=== PATIENT | male | born 1965 | race Caucasian/White ===

== ENCOUNTER 2016-04-20 12:02 | Observation (INO) | payer BC ==
[2016-04-20] MEDS ORDERED: NALOXONE 0.4 MG/ML 1 ML VIAL IV PRN (15:11)
--- NOTE | 2016-04-20 15:11 | ED ---
General Adult HPI - General Chief complaint: Recheck/Abnormal Lab/Rx Stated complaint: Withdraw Time Seen by Provider: 04/20/16 14:10 Source: patient, family, RN notes reviewed Mode of arrival: wheelchair Limitations: no limitations - History of Present Illness Initial comments: Patient is a pleasant 50-year-old male presenting to the emergency department with concerns for medication withdrawal. Patient has been on high-dose OxyContin for 16 years. There has been recent insurance change and refusal of refilling the medication. There was a dispute with the office and patient longer has a primary care physician. Patient is now out of his OxyContin and concern regarding withdrawal. Patient has had increase in pain today. Patient has chronic diffuse pain from multiple sclerosis. - Related Data Home Medications Medication Instructions Recorded Confirmed Ibuprofen [Motrin] 600 mg PO QID 08/04/15 04/20/16 Sertraline [Zoloft] 200 mg PO DAILY 08/04/15 04/20/16 oxyCODONE HCL [OxyCONTIN] 240 mg PO BID 08/04/15 04/20/16 Diazepam [Valium] 5 mg PO QID 04/20/16 04/20/16 Hydrocodone/Acetaminophen [[place] 1 tab PO BID PRN 04/20/16 04/20/16 10-325] Testosterone [Androgel 1.62% Gel 2 pump TOPICAL Q48H 04/20/16 04/20/16 Pump] oxyCODONE HCL [OxyCONTIN] 40 mg PO QID PRN 04/20/16 04/20/16 Allergies Allergy/AdvReac Type Severity Reaction Status Date / Time Penicillins AdvReac Severe Swelling Verified 04/20/16 14:09 prochlorperazine AdvReac Severe Hallucinati Verified 04/20/16 14:09 [From Compazine] ons prochlorperazine edisylate AdvReac Severe Hallucinati Verified 04/20/16 14:09 [From Compazine] ons prochlorperazine maleate AdvReac Severe Hallucinati Verified 04/20/16 14:09 [From Compazine] ons bupropion HCl AdvReac Intermediate Nausea & Verified 04/20/16 14:09 [From Wellbutrin] Vomiting gabapentin [From Neurontin] AdvReac Intermediate Nausea & Verified 04/20/16 14: 09 Vomiting amantadine AdvReac Unknown Nausea & Verified 04/20/16 14:09 Vomiting Review of Systems ROS Statement: Those systems with pertinent positive or pertinent negative responses have been documented in the HPI. ROS Other: All systems not noted in ROS Statement are negative. Constitutional: Denies: fever Eyes: Denies: eye pain ENT: Denies: ear pain Respiratory: Denies: cough Cardiovascular: Denies: palpitations Endocrine: Reports: fatigue Gastrointestinal: Denies: abdominal pain Genitourinary: Denies: dysuria Musculoskeletal: Reports: back pain Skin: Denies: rash Neurological: Reports: weakness Past Medical History Past Medical History: GERD/Reflux, Musculoskeletal Disorder, Neurologic Disorder , Osteoarthritis (OA) Additional Past Medical History / Comment(s): MS, active lesions in brain History of Any Multi-Drug Resistant Organisms: None Reported Past Surgical History: Back Surgery Additional Past Surgical History / Comment(s): c spine Past Anesthesia/Blood Transfusion Reactions: No Reported Reaction Past Psychological History: Anxiety, Depression Additional Psychological History / Comment(s): , lives in the family home with his . 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 No experience. No tobacco or alcohol use. No animal exposures. Smoking Status: Former smoker Past Alcohol Use History: None Reported Past Drug Use History: None Reported - Past Family History Mother Family Medical History: COPD, Hypertension General Exam Limitations: no limitations General appearance: alert, in no apparent distress Head exam: Present: atraumatic Eye exam: Present: normal appearance Respiratory exam: Present: normal lung sounds bilaterally Cardiovascular Exam: Present: regular rate, normal rhythm GI/Abdominal exam: Present: soft. Absent: tenderness Extremities exam: Present: normal inspection Neurological exam: Present: alert Psychiatric exam: Present: normal affect, normal mood Skin exam: Absent: rash Course Vital Signs 04/20/16 12:36 Temperature 98.3 F Pulse Rate 70 Respiratory 20 Rate Blood Pressure 164/85 O2 Sat by Pulse 95 Oximetry Disposition Clinical Impression: Intractable pain, Exacerbation of multiple sclerosis Disposition: ADMITTED IP TO THIS HOSP
[2016-04-20] MEDS ORDERED: HYDROcodone/APAP 10-325MG 1 EACH TAB PO PRN (15:13)
[2016-04-20 16:14] LABS: ALT 67 U/L (21-72); AST 59 U/L (17-59); Alkaline Phosphatase 145 U/L (38-126); Anion Gap 14 mmol/L; Blood Urea Nitrogen 13 mg/dL (9-20); Calcium 9.3 mg/dL (8.4-10.2); Carbon Dioxide 23 mmol/L (22-30); Chloride 101 mmol/L (98-107); Glucose 264 mg/dL (74-99); Non-African American GFR(MDRD) >60 (>60 ml/min/1.73 sqM); Potassium 4.4 mmol/L (3.5-5.1); Sodium 138 mmol/L (137-145); Total Bilirubin 0.7 mg/dL (0.2-1.3); Total Protein 8.3 g/dL (6.3-8.2)
[2016-04-20] MEDS: DIAZEPAM 5 MG TAB PO SCH ×2 (17:39→22:32)
[2016-04-20 17:43] LABS: Basophils % (A) 1 %; CH 28.8; CHCM 32.2; Eosinophils # (A) 0.1 k/uL (0-0.7); Eosinophils % (A) 1 %; HCT 40.3 % (39.0-53.0); HDW 2.64; Luc % (Auto) 2; Lymphocytes # (A) 1.5 k/uL (1.0-4.8); Lymphocytes % (A) 26 %; MCH 28.9 pg (25.0-35.0); MCHC 32.2 g/dL (31.0-37.0); MCV 89.8 fL (80.0-100.0); Mean Platelet Volume 6.9; Monocytes # (A) 0.4 k/uL (0-1.0); Monocytes % (A) 6 %; Neutrophils # (A) 3.7 k/uL (1.3-7.7); Neutrophils % (A) 64 %; RBC 4.49 m/uL (4.30-5.90); RDW 14.2 % (11.5-15.5); WBC 5.7 k/uL (3.8-10.6); WBC (Perox) 6.35
--- NOTE | 2016-04-20 18:26 | P.CNNES ---
History of Present Illness Consult date: 04/19/16 Reason for Consult: Patient with MS exacerbation and chronic pain. History of Present Illness: This patient is a 50-year-old right-handed white male who has a long-standing history of multiple sclerosis. Apparently recently the patient was discharged from his primary care physician due to some type of the dispute. He states he has a history of chronic pain syndrome. This is secondary to his long history of MS as well as other musculoskeletal problems. He has been using high-dose OxyContin for over 16 years. He apparently ran out of his OxyContin due to an insurance problem. He was concerned about withdrawal as his pain symptoms were quite severe and worsening to increase. He was brought into the emergency room where he was admitted for possible MS exacerbation as well as possible withdrawal syndrome. Patient has been treated for underlying depression as well. He is and lives at home with his . He has been medically disabled due to his MS. the patient apparently was following with his regular medical doctor locally Dr. Anna Brito. Apparently he was discharged from their practice today and he is no longer able to obtain his pain medication. This was a cause for concern which is why the decided to bring him to the emergency room as she was concerned about withdrawal from the OxyContin. Patient has been admitted to the hospital and apparently was given 40 mg of OxyContin. He is on very high-dose OxyContin for the past 16 years. For his multiple sclerosis he has been followed by specialists at the [facility]. He has tried various medications for treatment of the MS all of which have been unsuccessful. Apparently he has just recently been started on a new injectable form of treatment for his MS once a month. The patient has chronic pain secondary to his MS. Apparently the change in his prescription coverage through his insurance company has caused most of these problems in terms of his pain management at this time. The patient is now been admitted for further evaluation. We have recommended a consultation with pain management as soon as possible for further adjustment of his pain medications until he establishes with a new primary care physician. His overall prognosis at this time remains very guarded. He is now been admitted and neurology has been consult for further evaluation and recommendations. Review of Systems Constitutional: Denies chills, Denies fever Eyes: denies blurred vision, denies pain Ears, nose, mouth and throat: Denies headache, Denies sore throat Cardiovascular: Denies chest pain, Denies shortness of breath Respiratory: Denies cough Gastrointestinal: Denies abdominal pain, Denies diarrhea, Denies nausea, Denies vomiting Musculoskeletal: Reports muscle cramps, Reports shooting arm pain, Reports shooting leg pain, Denies myalgias Integumentary: Denies pruritus, Denies rash Neurological: Reports confusion, Reports headaches, Reports motor disturbance, Denies numbness, Denies weakness Psychiatric: Denies anxiety, Denies depression Endocrine: Denies fatigue, Denies weight change Past Medical History Past Medical History: GERD/Reflux, Musculoskeletal Disorder, Neurologic Disorder , Osteoarthritis (OA) Additional Past Medical History / Comment(s): MS, active lesions in brain History of Any Multi-Drug Resistant Organisms: None Reported Past Surgical History: Back Surgery Additional Past Surgical History / Comment(s): c spine Past Anesthesia/Blood Transfusion Reactions: No Reported Reaction Past Psychological History: Anxiety, Depression Additional Psychological History / Comment(s): , lives in the family home with his . 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 No experience. No tobacco or alcohol use. No animal exposures. Smoking Status: Former smoker Past Alcohol Use History: None Reported Past Drug Use History: None Reported - Past Family History Mother Family Medical History: COPD, Hypertension Medications and Allergies Home Medications Medication Instructions Recorded Confirmed Type Ibuprofen [Motrin] 600 mg PO QID 08/04/15 04/20/16 History Sertraline [Zoloft] 200 mg PO DAILY 08/04/15 04/20/16 History oxyCODONE HCL [OxyCONTIN] 240 mg PO BID 08/04/15 04/20/16 History Diazepam [Valium] 5 mg PO QID 04/20/16 04/20/16 History Hydrocodone/Acetaminophen [[place] 1 tab PO BID PRN 04/20/16 04/20/16 History 10-325] Testosterone [Androgel 1.62% Gel 2 pump TOPICAL Q48H 04/20/16 04/20/16 History Pump] oxyCODONE HCL [OxyCONTIN] 40 mg PO QID PRN 04/20/16 04/20/16 History Allergies Allergy/AdvReac Type Severity Reaction Status Date / Time Penicillins AdvReac Severe Swelling Verified 04/20/16 14:09 prochlorperazine AdvReac Severe Hallucinati Verified 04/20/16 14:09 [From Compazine] ons prochlorperazine edisylate AdvReac Severe Hallucinati Verified 04/20/16 14:09 [From Compazine] ons prochlorperazine maleate AdvReac Severe Hallucinati Verified 04/20/16 14:09 [From Compazine] ons bupropion HCl AdvReac Intermediate Nausea & Verified 04/20/16 14:09 [From Wellbutrin] Vomiting gabapentin [From Neurontin] AdvReac Intermediate Nausea & Verified 04/20/16 14: 09 Vomiting amantadine AdvReac Unknown Nausea & Verified 04/20/16 14:09 Vomiting Physical Examination - Vital Signs Vital Signs: Vital Signs Temp Pulse Resp BP Pulse Ox 04/20/16 15:51 97.6 F 69 18 128/80 95 - Constitutional General appearance: average body habitus, cooperative - EENT EENT: mucous membranes moist - Respiratory Respiratory: lungs clear, normal breath sounds - Cardiovascular Cardiovascular: regular rate, normal S1, normal S2 Extremities: no peripheral edema bilaterally - Gastrointestinal Gastrointestinal: normoactive bowel sounds - Integumentary Integumentary: normal - Neurologic Cranial nerve examination: PERRL, EOMI, VFF, V1/V2/V3 grossly intact, face symmetric, tongue midline, intact gag reflex, intact corneal reflex, normal palatal elevation Speech examination: intact Sensorimotor examination: intact Detailed motor examination: grossly full strength in all extremities Detailed sensory examination: intact Reflex and gait examination: intact Reflexes: 2+: ankle, bicep, knee, tricep - Musculoskeletal Musculoskeletal: pain in joint - Psychiatric Psychiatric: mood/affect appropriate, cooperative Results - Laboratory Findings CBC and BMP: 04/20/16 17:30 04/20/16 15:30 Abnormal Lab Findings: Abnormal Labs 04/20/16 15:30 Creatinine 0.63 L Glucose 264 H Alkaline Phosphatase 145 H Total Protein 8.3 H Assessment and Plan (1) Chronic pain syndrome Status: Acute Code(s): G89.4 - CHRONIC PAIN SYNDROME (2) Multiple sclerosis Status: Acute Code(s): G35 - MULTIPLE SCLEROSIS (3) Intractable pain Status: Acute Code(s): R52 - PAIN, UNSPECIFIED (4) Lumbar compression fracture Status: Acute Code(s): S32.000A - WEDGE COMPRESSION FRACTURE OF UNSP LUMBAR VERTEBRA, INIT (5) Lumbar discitis Status: Acute Code(s): M46.46 - DISCITIS, UNSPECIFIED, LUMBAR REGION (6) Muscle spasms of both lower extremities Status: Acute Code(s): M62.838 - OTHER MUSCLE SPASM Plan: This patient is a 50-year-old male with multiple complex medical issues including history of advanced multiple sclerosis and chronic pain syndrome. He had been on treatment for his chronic pain with high doses of OxyContin. Apparently he was discharged from his primary care physician who was writing the OxyContin medications for him. Apparently there was a change in his insurance and this has caused some of the problems. The was very concerned as he has no OxyContin medications left and for this reason was worried about withdrawal symptoms. He was brought to the emergency room where he was subtotally admitted to the hospital. A stat consult was put in for pain management to evaluate the patient's chronic pain symptoms. Patient has a history of advanced multiple sclerosis. He is followed by several specialists at the [facility] neurology clinic. Apparently he has been started on a once a month injection for treatment of his MS. He has tried multiple medications over the years on lobe which have not been successful. His current symptoms are more related to chronic pain management. His MS seems to be stable at this time. He will be following up with his regular neurologist soon after discharge. We will await further recommendations from pain management in regards to his OxyContin dosage and how to manage him. The is aware she will need to find a pain specialist for further management of his chronic pain symptoms. His overall prognosis at this time remains very guarded. Time with Patient: Greater than 30
[2016-04-20] MEDS ORDERED: HYDROmorphone 1 MG/ML 1 ML SYRINGE IVP PRN (18:44)
[2016-04-20] MEDS: SODIUM CHLORIDE 0.9% 1,000 ML IV SCH (18:48)
[2016-04-20 19:44] LABS: Hemoglobin A1C 10.5 % (4.2-6.1)
[2016-04-20] MEDS: FAMOTIDINE 20 MG TAB PO SCH (20:55)
[2016-04-20] MEDS: HYDROmorphone 2 MG/ML 1 ML SYRINGE IVP PRN (23:51)
[2016-04-21] MEDS: HYDROmorphone 2 MG/ML 1 ML SYRINGE IVP PRN ×7 (03:52→21:37)
[2016-04-21] MEDS: ONDANSETRON 4 MG/2 ML VIAL IVP PRN (06:47)
--- NOTE | 2016-04-21 07:10 | P.CONS ---
History of Present Illness - Chief Complaint Medical debility - History of Present Illness Admitted April 20 with exacerbation of back pain and MS exacerbation. Seen by Dr. Shayne Christiansen for known MS. I have added PT and OT at this time. Patient and report has been treated for chronic back pain by Dr. Brito. He's recently discontinued and now suffering withdrawal symptoms. You are treating this. Previous functional sick: As elicited from patient and corroborated by . 50 -year-old right-handed white male who is lives and one for home with . Doesn't smoke or drink and never did. Retired/disability. does the cooking, laundry, driving. Patient independent with sitdown shower and gait with 4 wheeled walker. Family history father with cardiac disease. Review of Systems Review of systems: ENT: Denies sneezes or discharge. Eyes: Denies discharge or photophobia. Cardiac: Denies chest pain or palpitation. Pulmonary: Denies cough or shortness of breath. Gastrointestinal: Denies nausea, emesis, constipation, diarrhea. Genitourinary: Denies discharge or frequency. Musculoskeletal: Chronic back pain with associated pain in legs. Neurologic: At least mild generalized weakness that is worse in left leg due to MS. Endocrine: Denies shakes or sweats. Oncology: Denies cancers. Dermatologic: Denies rash, itching, pruritus. ALLERGY/immunology: Denies sneezes, rashes. Past Medical History Past Medical History: GERD/Reflux, Musculoskeletal Disorder, Neurologic Disorder , Osteoarthritis (OA) Additional Past Medical History / Comment(s): MS, active lesions in brain History of Any Multi-Drug Resistant Organisms: None Reported Past Surgical History: Back Surgery Additional Past Surgical History / Comment(s): c spine Past Anesthesia/Blood Transfusion Reactions: No Reported Reaction Past Psychological History: Anxiety, Depression Additional Psychological History / Comment(s): , lives in the family home with his . 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 No experience. No tobacco or alcohol use. No animal exposures. Smoking Status: Never smoker Past Alcohol Use History: None Reported Past Drug Use History: None Reported - Past Family History Mother Family Medical History: COPD, Hypertension Medications and Allergies Home Medications Medication Instructions Recorded Confirmed Type Ibuprofen [Motrin] 600 mg PO QID 08/04/15 04/20/16 History Sertraline [Zoloft] 200 mg PO DAILY 08/04/15 04/20/16 History oxyCODONE HCL [OxyCONTIN] 240 mg PO BID 08/04/15 04/20/16 History Diazepam [Valium] 5 mg PO QID 04/20/16 04/20/16 History Hydrocodone/Acetaminophen [[place] 1 tab PO BID PRN 04/20/16 04/20/16 History 10-325] Testosterone [Androgel 1.62% Gel 2 pump TOPICAL Q48H 04/20/16 04/20/16 History Pump] oxyCODONE HCL [OxyCONTIN] 40 mg PO QID PRN 04/20/16 04/20/16 History Allergies Allergy/AdvReac Type Severity Reaction Status Date / Time Penicillins AdvReac Severe Swelling Verified 04/20/16 14:09 prochlorperazine AdvReac Severe Hallucinati Verified 04/20/16 14:09 [From Compazine] ons prochlorperazine edisylate AdvReac Severe Hallucinati Verified 04/20/16 14:09 [From Compazine] ons prochlorperazine maleate AdvReac Severe Hallucinati Verified 04/20/16 14:09 [From Compazine] ons bupropion HCl AdvReac Intermediate Nausea & Verified 04/20/16 14:09 [From Wellbutrin] Vomiting gabapentin [From Neurontin] AdvReac Intermediate Nausea & Verified 04/20/16 14: 09 Vomiting amantadine AdvReac Unknown Nausea & Verified 04/20/16 14:09 Vomiting Physical Exam Vitals: Vital Signs Temp Pulse Pulse Resp BP BP Pulse Ox 04/20/16 23:00 97.0 F L 55 L 18 141/81 95 04/20/16 17:06 96.8 F L 63 18 132/75 91 L 04/20/16 15:51 97.6 F 69 18 128/80 95 Intake and Output 04/20/16 04/21/16 04/21/16 22:59 06:59 14:59 Intake Total 300 240 Balance 300 240 Intake: Oral 300 240 Other: Voiding Method Toilet Urinal # Voids 2 Skin: Good color, texture, turgor. General: Overweight to obese and uncomfortable appearance. Head: Normocephalic, atraumatic. Eyes: Symmetric. Pupils equal round. Ears: Symmetric. Hearing within normal limits. Mouth: Clear. Neck: Supple. Carotid without bruit. Cardiac: Regular rate and rhythm. Lungs: Clear anteriorly and posteriorly. Abdomen: Soft active nontender overweight. Extremities: Normal tone. Neurological: Mental status: Alert, cooperative, pleasant. Cranial nerves: Symmetric facial tone and trapezius. Motor: Good active movement both arms but slow. Able elevate the right leg at best 3+ over 5. Left leg is at best 2+ over 5. Sensation: Intact throughout. DTRs: Absent throughout. Mobility: Sitting at edge of bed but unable to stand for me. Results CBC & Chem 7: 04/20/16 17:30 04/20/16 15:30 Labs: Abnormal Lab Results - Last 24 Hours (Table) 04/20/16 04/20/16 04/20/16 Range/Units 15:30 15:30 17:30 Plt Count 133 L (150-450) k/uL Creatinine 0.63 L (0.66-1.25) mg/dL Glucose 264 H (74-99) mg/dL Hemoglobin A1c 10.5 H (4.2-6.1) % Alkaline Phosphatase 145 H (38-126) U/L Total Protein 8.3 H (6.3-8.2) g/dL Assessment and Plan (1) Exacerbation of multiple sclerosis Status: Acute Plan: Impression: 1. Gait disturbance. 2. MS exacerbation. 3. Exacerbation chronic back pain. 4. Possible opiate withdrawal symptom. 5. Shelli arthritis. Comments and plan: At this time I'll prescribe physical neck facial therapy for the walking difficulty issues. Anticipate patient should do well. You are currently managing his opiate withdrawal syndrome.
--- NOTE | 2016-04-21 08:15 | HP ---
DATE OF ADMISSION: 04/20/2016 CHIEF COMPLAINT: A 50-year-old white male with acute multiple sclerosis exacerbation is in drug withdrawal. HISTORY OF PRESENT ILLNESS: 50-year-old white male admitted after his doctor stopped his OxyContin 240 mg b.i.d. which he has been on for the last 16 years. Will not refill his medicine. He ran out today. He came to the ER due to MS exacerbation and OxyContin withdrawal. He is having no chest or shortness of breath. His home medicines include: 1. Zoloft 200 daily. 2. OxyContin 240 b.i.d. 3. Valium 5 mg b.i.d. 4. [place] 10 b.i.d. 5. Testosterone ejection. 6. Motrin. ALLERGIES: PENICILLIN, COMPAZINE, AND WELLBUTRIN AND NEURONTIN, AMANTADINE. REVIEW OF SYSTEMS: Fourteen-point review of systems negative except for as mentioned in HPI. CARDIOVASCULAR: Negative. PULMONARY: Negative. ENDOCRINE: Obesity. GI: Soft. : Negative. MUSCULOSKELETAL: Negative. SKIN: Negative. NEUROLOGIC: Negative. PAST MEDICAL HISTORY: GERD, reflux, also ( ), neurologic disorder, osteoarthritis. Has a history of mass lesions on the brain, back surgery, anxiety, depression. Medically disabled. He grew up on a farm. No experience. No alcohol or illicit drugs. He is , lives with his family at home. PHYSICAL EXAMINATION: Temperature 98.3, pulse 70, respiratory rate 18 to 20, blood pressure 160/85, O2 sat 95. He appears alert and oriented x3, giving appropriate answers. Appears to be ( ) pain. MUSCULOSKELETAL: 3 out of 5 strength in his four extremities . EXTREMITIES: He does walk with a walker with limited fashion. He has left sided weakness. He can barely get out of the bed at this point. 3 out of 5 strength in 4 extremities. LUNGS: Clear. CARDIOVASCULAR: S1 and S2. SKIN: No rashes, excoriations, bruising. ASSESSMENT: 1. Multiple sclerosis exacerbation irretractable pain. 2. Hyperglycemia, rule out diabetes mellitus. 3. Will get pain referral from Dr. Hampton. 4. Neurology for multiple sclerosis exacerbation. 5. Rule him out for diabetes. 6. Thrombocytopenia, unclear etiology. His hemoglobin A1c is 10.5 so will have to be started on diabetic medications at this time.
[2016-04-21] MEDS: FAMOTIDINE 20 MG TAB PO SCH ×2 (08:49→20:10)
[2016-04-21] MEDS: DIAZEPAM 5 MG TAB PO SCH ×3 (08:52→21:39)
[2016-04-21] MEDS: SERTRALINE 100 MG TAB PO SCH (09:33)
--- NOTE | 2016-04-21 13:31 | P.PN ---
Subjective This patient is a 50-year-old right-handed white male who has a long-standing history of multiple sclerosis and was admitted for oxycodone withdrawal syndrome. Patient apparently was treated for chronic pain for years and had his oxycodone discontinued by his primary care physician. Apparently he was released from this practice and is now stuck in that he has no pain medications that he can continue on for long-term treatment of chronic pain syndrome. He is being followed in the neurology clinic at [facility] for treatment of his MS. He is receiving Zinbryta injections once a month for treatment of his MS. He has failed several other treatment medications over the years. He states that he was using oxycodone for pain management for over 16 years. He is now to be seen by the in-house pain management team from anesthesia for further assessment of his pain requirements and needs. He was seen by Dr. Nance today was prescribed PTOT for him. We will await further recommendations from the pain specialist in terms of adjustments of his medications. He is also needing to find a primary care physician for long-term pain management in the outpatient setting. His overall prognosis at this time remains very guarded. Objective - Vital Signs Vital signs: Vital Signs Temp 98.3 F 04/21/16 07:00 Pulse 77 04/21/16 11:20 Resp 20 04/21/16 11:20 BP 133/87 04/21/16 11:20 Pulse Ox 95 04/21/16 11:20 Intake & Output 04/20/16 04/21/16 04/21/16 18:59 06:59 18:59 Intake Total 540 200 Balance 540 200 Intake: Oral 540 200 Other: Voiding Method Toilet Toilet Urinal Urinal # Voids 2 - Exam Physical examination: PHYSICAL EXAMINATION: Patient is resting comfortably in bed. VITAL SIGNS: Blood pressure is [134/93]. Heart rate is [78]. Respiration is [20] . Temperature is [98.3]. HEENT: Head is atraumatic, neck is supple, there were no carotid bruits. CHEST: Lungs are clear to auscultation and percussion. CARDIAC: S1, S2 normal rate and rhythm. There is no murmur. ABDOMEN: Soft and nontender. Bowel sounds are present. EXTREMITIES: There is no pedal edema. Peripheral pulses are present. Neurological examination: Patient neurological examination is unchanged from yesterday. - Labs CBC & Chem 7: 04/20/16 17:30 04/20/16 15:30 Labs: Abnormal Lab Results - Last 24 Hours (Table) 04/20/16 04/20/16 04/20/16 Range/Units 15:30 15:30 17:30 Plt Count 133 L (150-450) k/uL Creatinine 0.63 L (0.66-1.25) mg/dL Glucose 264 H (74-99) mg/dL Hemoglobin A1c 10.5 H (4.2-6.1) % Alkaline Phosphatase 145 H (38-126) U/L Total Protein 8.3 H (6.3-8.2) g/dL Assessment and Plan (1) Chronic pain syndrome Status: Acute Code(s): G89.4 - CHRONIC PAIN SYNDROME (2) Multiple sclerosis Status: Acute Code(s): G35 - MULTIPLE SCLEROSIS (3) Intractable pain Status: Acute Code(s): R52 - PAIN, UNSPECIFIED (4) Lumbar compression fracture Status: Acute Code(s): S32.000A - WEDGE COMPRESSION FRACTURE OF UNSP LUMBAR VERTEBRA, INIT (5) Lumbar discitis Status: Acute Code(s): M46.46 - DISCITIS, UNSPECIFIED, LUMBAR REGION (6) Muscle spasms of both lower extremities Status: Acute Code(s): M62.838 - OTHER MUSCLE SPASM Plan: This patient is a 50-year-old male with multiple complex medical issues including history of advanced multiple sclerosis and chronic pain syndrome. He had been on treatment for his chronic pain with high doses of OxyContin. Apparently he was discharged from his primary care physician who was writing the OxyContin medications for him. Apparently there was a change in his insurance and this has caused some of the problems. The was very concerned as he has no OxyContin medications left and for this reason was worried about withdrawal symptoms. He was brought to the emergency room where he was subtotally admitted to the hospital. A stat consult was put in for pain management to evaluate the patient's chronic pain symptoms. Patient has a history of advanced multiple sclerosis. He is followed by several specialists at the [facility] neurology clinic. Apparently he has been started on a once a month injection for treatment of his MS. He has tried multiple medications over the years on lobe which have not been successful. His current symptoms are more related to chronic pain management. His MS seems to be stable at this time. He will be following up with his regular neurologist soon after discharge. Patient was seen today by Dr. Hampton. Apparently he did not make any changes with his pain medications. Since the patient is not showing any obvious signs of severe MS exacerbation it is more of a issue of his OxyContin withdrawal syndrome and pain management we have suggested the patient be considered for transfer to a tertiary center where his primary neurologist is located in the [place] area for further pain management and assessment. We discussed this today with the nursing staff will contact Dr. Khan and make arrangements for possible transfer to the [facility]. Apparently he has been placed on Dilaudid every 2-3 hours which is not really showing much help for him. As noted his main issue is pain management at this time. Nursing staff states that the pain specialists would not be available until Sunday. Rather than keeping the patient here over the weekend with no treatment we have recommended that he be considered for transfer to a tertiary center for further management.
[2016-04-21 14:28] VITALS: BMI 38.0
[2016-04-21] MEDS: SODIUM CHLORIDE 0.9% 1,000 ML IV SCH (15:41)
[2016-04-21] MEDS: metFORMIN 500 MG TAB PO SCH (18:31)
[2016-04-21 18:32] LABS: Glucose,Whole Blood 222 mg/dL (75-99)
[2016-04-21 21:36] LABS: Glucose,Whole Blood 213 mg/dL (75-99)
[2016-04-22] MEDS: HYDROmorphone 2 MG/ML 1 ML SYRINGE IVP PRN ×9 (00:18→22:38)
[2016-04-22] MEDS: ONDANSETRON 4 MG/2 ML VIAL IVP PRN (03:14)
[2016-04-22 06:56] LABS: Glucose,Whole Blood 279 mg/dL (75-99)
[2016-04-22] MEDS: DIAZEPAM 5 MG TAB PO SCH ×3 (08:27→22:38)
[2016-04-22] MEDS: FAMOTIDINE 20 MG TAB PO SCH ×2 (08:28→22:38)
[2016-04-22] MEDS: metFORMIN 500 MG TAB PO SCH ×2 (08:28→17:25)
[2016-04-22] MEDS: SERTRALINE 100 MG TAB PO SCH (08:28)
[2016-04-22 12:00] LABS: Glucose,Whole Blood 238 mg/dL (75-99)
--- NOTE | 2016-04-22 17:03 | P.CN ---
Psychiatric Consult - . Consult:: 04/22/16 16:53 IDENTIFYING DATA: This patient is a 50-year-old male who was admitted to the medical floor and we're asked to consult regarding symptoms of depression in the context of opiate withdrawal. HPI: Other records were reviewed including the original history and physical notes from neurology and from physical rehabilitation. The patient has a known diagnosis of multiple sclerosis with subsequent pain. He has been maintained on extraordinary high doses of opiates for he states 16 years. Because of changes with his insurance he states he was discontinued from his pain medication abruptly. Subsequently he has been experiencing severe symptoms of withdrawal including stomach cramping nausea diarrhea lack of appetite insomnia etc. He reports a long history of major depressive disorder. He has been more tearful lately he has been feeling tired. Because of the intensity of opiate withdrawal symptoms he has had some passive suicidal thoughts but states he would never harm himself. He has no active suicidal ideation intent or plan. The patient's and daughter were at bedside during the interview and neither of them feel her father/ is at risk for committing suicide. They do corroborate his history that he provides. There is no history of hypomanic or manic episodes there is no report of psychosis. His family feels that he is an anxious person he states he is somewhat will have some obsessive thinking at times and will be ritualistic. He states he has to brush his teeth for 20 minutes and he does take extended showers. PAST PSYCHIATRIC HISTORY: No prior inpatient psychiatric care no history of suicide attempts. He is currently on Zoloft 200 mg daily and Valium 5 mg up to 3 times daily. He has not tried any other psychotropics that he can recall, however he does have Wellbutrin listed as an ALLERGY. He is not working with an outpatient therapist or psychiatrist. PMH: MS, diabetes, chronic pain ALLERGIES: Penicillin, Compazine, Wellbutrin, Neurontin, Symmetrel MEDICATIONS: Refer to MAR CHEMICAL DEPENDENCY HISTORY: Ports no use of alcohol, marijuana or any illicit drugs. He's never been placed in residential treatment for chemical dependency reasons. FAMILY PSYCHIATRIC HISTORY: He states both of his children are known to have anxiety symptoms, no suicides in the family FAMILY CHEMICAL DEPENDENCY HISTORY: None reported SOCIAL HISTORY: The patient is a 50-year-old male. He has been for 29 years. He lives with his . He has a total of 3 children. 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 He has a high school education with some college credits. No service. MENTAL STATUS EXAM: The patient is an overweight male appearing his stated age. He is lying in bed. Eye contact is appropriate speech is soft spontaneous nonpressured. He is dressed in hospital gowns and covered with a blanket. Thought process is circumstantial at times he can be linear. He is pleasant and cooperative. He is reporting no acute suicidal ideation intent or plan no homicidal ideation. There is no report or evidence of auditory or visual hallucinations. He is endorsing no specific delusions. Insight and judgment grossly intact. He is alert and oriented to person place and date. There is no verbal or physical aggressiveness. STRENGTHS/WEAKNESSES: Drinks: Housing, income, support from family weaknesses: Major depressive disorder symptoms in the context of opiate withdrawal INTELLECTUAL FUNCTIONING: Average IMPRESSIONS: [] 1. Major depressive disorder recurrent moderate, anxiety unspecified, iatrogenic opiate dependence 2. Multiple medical comorbidities 3. Psychosocial dysfunction secondary to depressive symptoms in the context of acute opiate withdrawal PLAN: We reviewed the patient's presenting symptoms and medication options. He will be transitioned off of Zoloft and we will institute Cymbalta. We will start Cymbalta 30 mg daily and over the next few days the plan would be to titrate to 60 mg daily as the Zoloft is discontinued. We discussed potential benefits and side effects of Cymbalta and his questions were answered. Valium will be continued at its current dose but we encourage minimizing it when possible. There is no acute safety risk he is appropriate for outpatient mental health follow-up upon discharge from the hospital. Case was discussed with Dr. Khan his current attending. Education was provided to the patient regarding opiate withdrawal in terms of when to expect a peak effect and its duration. The patient's questions were answered as well as his 's and daughters. I will follow patient while medically admitted. I would recommend instituting a delayed release opiate at a reasonable dose that can be maintained for the next several days prior to meeting up with his next pain physician.
[2016-04-22 17:12] LABS: Glucose,Whole Blood 268 mg/dL (75-99)
[2016-04-22] MEDS: SODIUM CHLORIDE 0.9% 1,000 ML IV SCH (17:18)
[2016-04-22] MEDS ORDERED: TESTOSTERONE TOPICAL SCH (18:00)
[2016-04-22] MEDS ORDERED: PUMP TOPICAL SCH (18:00)
[2016-04-22 20:48] LABS: Glucose,Whole Blood 254 mg/dL (75-99)
[2016-04-23] MEDS: HYDROmorphone 2 MG/ML 1 ML SYRINGE IVP PRN ×5 (00:52→10:22)
[2016-04-23] MEDS: ONDANSETRON 4 MG/2 ML VIAL IVP PRN (03:44)
[2016-04-23 07:00] LABS: Glucose,Whole Blood 264 mg/dL (75-99)
[2016-04-23] MEDS: DIAZEPAM 5 MG TAB PO SCH ×3 (07:57→23:43)
[2016-04-23] MEDS: DULoxetine HCL 30 MG CAPSULE.DR PO SCH (07:58)
[2016-04-23] MEDS: SERTRALINE 100 MG TAB PO SCH (07:58)
[2016-04-23] MEDS: metFORMIN 500 MG TAB PO SCH ×2 (07:59→17:34)
[2016-04-23] MEDS: FAMOTIDINE 20 MG TAB PO SCH ×2 (07:59→21:54)
[2016-04-23 11:58] LABS: Glucose,Whole Blood 264 mg/dL (75-99)
[2016-04-23] MEDS: oxyCODONE-APAP 10-325MG 1 EACH TAB PO PRN ×3 (12:15→20:10)
[2016-04-23] MEDS: HYDROmorphone 1 MG/ML 1 ML SYRINGE IVP PRN ×3 (13:18→21:54)
--- NOTE | 2016-04-23 14:29 | P.PN ---
Progress Note - Text Interval history: The patient is found in his room he is lying awake in bed. He has his and son at bedside. He reports that his mood is still down because of physical symptoms related to withdrawal. He is endorsing no acute suicidal ideation. We discussed the change from Zoloft to Cymbalta again he has no questions regarding those medications. He has been placed on Percocet 10 mg when necessary. He is scheduled to follow with a neurologist upon discharge for continued pain management. The patient's endorsing some feelings of confusion but no auditory or visual hallucinations. Mental status exam: The patient's is an overweight male he is alert he recognizes me on approach. He spontaneously engages in conversation. He reports feeling miserable due to physical Seroquel of opiate withdrawal. He is reporting no acute suicidal or homicidal ideation intent or plan. There is no report or evidence of psychosis. There is no evidence of hypomanic or manic symptoms. Insight and judgment grossly intact. He remains oriented to person place and date. There is no verbal or physical aggressiveness. He finds family supportive. He spontaneously verbalizes future oriented thinking. Plan: We will continue our plan of cross tapering off of Zoloft and onto Cymbalta. There is no imminent safety risk the patient does not require inpatient psychiatric hospitalization. Consider Imodium if complaints of diarrhea continue, we may consider instituting clonidine 0.1 mg up to 3 times daily as needed for opiate withdrawal symptoms if his blood pressure can tolerate that. I would consider starting him on a sustained release opiate medication twice daily. I will continue to follow patient while medically admitted.
[2016-04-23] MEDS: SODIUM CHLORIDE 0.9% 1,000 ML IV SCH (16:01)
[2016-04-23 17:08] LABS: Glucose,Whole Blood 195 mg/dL (75-99)
--- NOTE | 2016-04-23 20:38 | PN ---
DATE OF SERVICE: 04/22/2016 SUBJECTIVE: This is a 50-year-old white male wound with multiple sclerosis, severe chronic pain control issue, acute drug withdrawal, diabetes who has been treated with metformin 1 gram b.i.d. He still remains elevated. His blood glucose levels in the mid 200s. Discussed with him and his family to stop wean him off Dilaudid, starting him off on some Percocet until he gets into Dr. Chang on Sunday for a pain clinic evaluation. MUSCULOSKELETAL: He has 3 out of 5 strength x4 extremities. CARDIOVASCULAR: S1, S2. LUNGS: Clear. Psychiatry saw the patient evaluated him, reviewed chart plan was his pain control with him and recommends same plan as mentioned above with Dr. Gray. Will follow. Will increase his metformin to 1 gram b.i.d. Wean Dilaudid, start Percocet until he sees Dr. Chang on Sunday after recently coming off OxyContin 240 mg b.i.d. which his primary care physician just stopped on him abruptly.
[2016-04-23 20:49] LABS: Glucose,Whole Blood 219 mg/dL (75-99)
[2016-04-24] MEDS: HYDROmorphone 1 MG/ML 1 ML SYRINGE IVP PRN ×3 (02:15→09:55)
[2016-04-24] MEDS: oxyCODONE-APAP 10-325MG 1 EACH TAB PO PRN ×2 (03:13→07:38)
[2016-04-24] MEDS: ONDANSETRON 4 MG/2 ML VIAL IVP PRN (04:36)
[2016-04-24 07:00] LABS: Glucose,Whole Blood 249 mg/dL (75-99)
[2016-04-24] MEDS: DIAZEPAM 5 MG TAB PO SCH (07:38)
[2016-04-24] MEDS: DULoxetine HCL 30 MG CAPSULE.DR PO SCH (07:39)
[2016-04-24] MEDS: FAMOTIDINE 20 MG TAB PO SCH (07:39)
[2016-04-24] MEDS: metFORMIN 500 MG TAB PO SCH (07:39)
[2016-04-24] MEDS: SERTRALINE 100 MG TAB PO SCH (07:39)
--- NOTE | 2016-04-24 07:40 | PN ---
SUBJECTIVE: 50-year-old white male, sugars are in the mid 200, ( ) Metformin 1000 b.i.d., possibly will add another agent on discharge. Patient will follow-up with pain clinic at Dr. Chang on Sunday. CARDIOVASCULAR: S1, S2. LUNGS: Clear. GI: Soft. HEMATOLOGIC: Negative Homans. 05/14 x4 extremities. ASSESSMENT: 1. Multiple sclerosis. 2. Diabetes mellitus. 3. Depression. 4. Chronic pain syndrome. The patient continued to ( ) next 24 to 48 hours for PT, OT and being discharged home to see Dr. Chang in pain clinic on Sunday.
[2016-04-24 07:53] VITALS: BP 165/89; PULSE 88; RESP 18; TEMP 97.1
--- NOTE | 2016-04-24 10:11 | P.PN ---
Progress Note - Text Interval history: The patient is found in his room he is in the process of being actively discharged. He is going to follow with a neurologist for pain management at 11 AM this morning. He is reporting no acute suicidal ideation intent or plan. There is no report of psychosis. Mental status exam: The patient is an overweight male he is dressed in hospital attire. Eye contact is appropriate speech is fluent spontaneous nonpressured. He can be verbose but is easily directed. No evidence of hypomanic or manic symptoms. No evidence of psychosis. He is endorsing no acute suicidal or homicidal ideation intent or plan. There is no verbal or physical aggressiveness. Insight and judgment grossly intact. Cognitively he is alert and oriented to person place and date. Plan: The patient is at no acute safety risk. He does not require inpatient psychiatric hospitalization. We will discontinue the Zoloft and he is to continue on Cymbalta 60 mg daily. He is encouraged to minimize any use of Valium. He is given the phone number for the other [facility] outpatient counseling office to arrange individual therapy and subsequent psychiatric follow-up.
[2016-04-24] MEDS ORDERED: DULoxetine HCL 30 MG CAPSULE.DR PO SCH (10:15)
--- NOTE | 2016-04-24 10:22 | P.DS ---
Providers Date of admission: 04/20/16 15:11 Expected date of discharge: 04/24/16 Attending physician: Bruce Khan Consults: 04/20/16 19:38 Consult Physician Stat Consulting Provider: Shashank Hampton Consult Reason/Comments: pain managment Do you want consulting provider notified?: Yes 04/21/16 12:32 Consult Physician Routine Consulting Provider: José Antonio Gray Consult Reason/Comments: pain medication addiction Do you want consulting provider notified?: Yes 04/23/16 08:00 Consult Anesthesia Urgent Consulting Provider: Anesthesia,Services Consult Reason/Comments: Pain Management for Opiod [facility] Primary care physician: Stated None Hospital Course: IDENTIFYING DATA: This patient is a 50-year-old male who was admitted to the medical floor and a psychiatric consult was requested regarding symptoms of depression in the context of opiate withdrawal. The patient has a known diagnosis of multiple sclerosis with subsequent pain. He has been maintained on extraordinary high doses of opiates for he states 16 years. Because of changes with his insurance he states he was discontinued from his pain medication abruptly. Subsequently he has been experiencing severe symptoms of withdrawal including stomach cramping nausea diarrhea lack of appetite insomnia etc. He reports a long history of major depressive disorder. He has been more tearful lately he has been feeling tired. Because of the intensity of opiate withdrawal symptoms he has had some passive suicidal thoughts but states he would never harm himself. He has no active suicidal ideation intent or plan. The patient's and daughter were at bedside during the interview and neither of them feel her father/ is at risk for committing suicide. They do corroborate his history that he provides. There is no history of hypomanic or manic episodes there is no report of psychosis. His family feels that he is an anxious person he states he is somewhat will have some obsessive thinking at times and will be ritualistic. He states he has to brush his teeth for 20 minutes and he does take extended showers. PAST PSYCHIATRIC HISTORY: No prior inpatient psychiatric care no history of suicide attempts. He is currently on Zoloft 200 mg daily and Valium 5 mg up to 3 times daily. He has not tried any other psychotropics that he can recall, however he does have Wellbutrin listed as an ALLERGY. He is not working with an outpatient therapist or psychiatrist. Dr. Gray from the mental health did see patient on consultation. They recommended maintaining the patient on Cymbalta 60 mg daily and stopping Zoloft. Additionally starting him on sustained release opiate medication twice a day. Patient was set up with neurology today on the day of discharge at [address] Chang with would be addressing patient's pain issues for pain management Additionally the patient was seen by Dr. Snyder patient has a long-standing history of multiple sclerosis. Patient reportedly sees a neurologically clinic at [facility] for treatment of the MS. Patient is receiving zinbryta injections once a month for treatment of MS patient has been encouraged to continue his relationship with the neurological clinic at [facility] for treatment of his MS Patient was seen by the health information provider was provided with diabetic education hemoglobin A1c was 10.5. Patient with follow-up with Dr. Khan in the outpatient setting for further management The day of discharge patient was felt to be appropriate to be discharged with the plan the patient will keep to 11 AM appointment today with Dr. Holder for pain management Impression discharge diagnosis Major depressive disorder recurrent moderate, anxiety unspecified, iatrogenic opiate dependence Type II diabetic insulin requiring uncontrolled hemoglobin A1c 10.5 Psychosocial dysfunction secondary to depressive symptoms in the context of acute opiate withdrawal Chronic pain syndrome Status: Acute Code(s): G89.4 - CHRONIC PAIN SYNDROME (2) Multiple sclerosis Status: Acute Code(s): G35 - MULTIPLE SCLEROSIS (3) Intractable pain Status: Acute Code(s): R52 - PAIN, UNSPECIFIED (4) Lumbar compression fracture Status: Acute Code(s): S32.000A - WEDGE COMPRESSION FRACTURE OF UNSP LUMBAR VERTEBRA, INIT (5) Lumbar discitis Status: Acute Code(s): M46.46 - DISCITIS, UNSPECIFIED, LUMBAR REGION (6) Muscle spasms of both lower extremities Status: Acute Code(s): M62.838 - OTHER MUSCLE SPASM Debilitated physical chronic with gait disturbance The above dictated assessment and findings were discussed with Dr. Khan Impression and the plan of care have been dictated as directed. Alma Red nurse practitioner acting as a scribe for Dr. Khan Plan - Discharge Summary New Discharge Prescriptions: DULoxetine HCL [Cymbalta] 60 mg PO DAILY #30 capsule. Discharge Medication List Ibuprofen [Motrin] 600 mg PO QID 08/04/15 [History] oxyCODONE HCL [OxyCONTIN] 240 mg PO BID 08/04/15 [History] Diazepam [Valium] 5 mg PO QID 04/20/16 [History] Hydrocodone/Acetaminophen [[place] 10-325] 1 tab PO BID PRN 04/20/16 [History] Testosterone [Androgel 1.62% Gel Pump] 2 pump TOPICAL Q48H 04/20/16 [History] oxyCODONE HCL [OxyCONTIN] 40 mg PO QID PRN 04/20/16 [History] DULoxetine HCL [Cymbalta] 60 mg PO DAILY #30 capsule. 04/24/16 [Rx] Follow up Appointment(s)/Referral(s): Bruce Khan MD [STAFF PHYSICIAN] - 05/02/16 2:30 pm Patient Instructions/Handouts: Multiple Sclerosis (DC), Type 2 Diabetes in Adults (DC) Activity/Diet/Wound Care/Special Instructions: Cardiac, diabetic diet. Keep scheduled appointment today at [address] Chang for pain management Discharge Disposition: HOME SELF-CARE
== END 2016-04-24 10:45 | disposition home or self-care (01) ==
LOC: EC 12:02 → 4MS4W 15:11
PROVIDERS: ADMIT Family Medicine; ATTEND Family Medicine
DX: G89.4 Chronic pain syndrome (principal); G35 Multiple sclerosis; F11.23 Opioid dependence with withdrawal; F33.1 Major depressive disorder, recurrent, moderate; F41.9 Anxiety disorder, unspecified; E11.65 Type 2 diabetes mellitus with hyperglycemia; D69.6 Thrombocytopenia, unspecified; M48.56XA Collapsed vertebra, not elsewhere classified, lumbar region, initial encounter for fracture; M46.46 Discitis, unspecified, lumbar region; M19.90 Unspecified osteoarthritis, unspecified site; M62.838 Other muscle spasm; E66.3 Overweight; Z68.38 Body mass index [BMI] 38.0-38.9, adult; Z87.891 Personal history of nicotine dependence; Z79.899 Other long term (current) drug therapy; Z79.1 Long term (current) use of non-steroidal anti-inflammatories (NSAID); Z88.0 Allergy status to penicillin; Z88.8 Allergy status to other drugs, medicaments and biological substances; Z73.6 Limitation of activities due to disability; Z79.891 Long term (current) use of opiate analgesic
CPT/HCPCS: 99284; 97116; 97530; 97162; 80053; 84443; 83036; 85025; G0378 ×5; J1170 ×7; J2405 ×4; 96374; 96375; 96376

== ENCOUNTER 2016-05-02 15:51 | Inpatient (IN) | payer BC, OTHER ==
[2016-05-02] MEDS ORDERED: SODIUM CHLORIDE 0.9% 1,000 ML IV STA (16:34)
[2016-05-02] MEDS ORDERED: methylPREDNISolone SOD SUCCI 125 MG/2 ML VIAL IV STA (16:34)
[2016-05-02] MEDS ORDERED: SODIUM CHLORIDE 0.9% 500 ML IV STA (16:34)
[2016-05-02] MEDS ORDERED: LORazepam 2 MG/ML SYRINGE IV STA (16:34)
--- NOTE | 2016-05-02 16:37 | ED ---
General Adult HPI - General Chief complaint: Psychiatric Symptoms Stated complaint: Back Pain/MS/Mental Health Time Seen by Provider: 05/02/16 16:23 Source: patient, family, RN notes reviewed Mode of arrival: wheelchair Limitations: no limitations - History of Present Illness Initial comments: 50-year-old male presents to the emergency department with a chief complaint of intractable pain. Patient was recently admitted a few weeks ago for intractable pain. Patient followed up with Dr. Khan and was sent to Dr. Mckenzie yeh for pain management. The patient has been treated with [facility] outpatient we however he continues to have intractable pain to the point that he is becoming suicidal and friends take his life because his pain is poorly managed. The patient also has started noticing weakness to his left upper extremity which is typical of an MS exacerbation for him. He went to Dr. Khan today for follow-up and was sent here to be admitted to the family for steroids in pain management. They state they do about follow-up with Dr. Chang next week to get a pelvic that should help with the patient's pain however he cannot get that's unlikely given he is unable to tolerate pain at home. The patient is tearful in the room and complains of just intractable back pain. Family states while he sent him here for admission. Patient denies any recent fever, chills, shortness of breath, chest pain, abdominal pain, nausea vomiting, numbness or tingling, dysuria or hematuria, constipation or diarrhea, headaches or visual changes, or any other current symptoms. - Related Data Home Medications Medication Instructions Recorded Confirmed Diazepam [Valium] 5 mg PO QID 04/20/16 05/02/16 Hydrocodone/Acetaminophen [[place] 1 tab PO BID PRN 04/20/16 05/02/16 10-325] Daclizumab [Zinbryta] 150 mg SQ Q30D 05/02/16 05/02/16 Ibuprofen [Motrin] 800 mg PO TID 05/02/16 05/02/16 Pregabalin [Lyrica] 75 mg PO BID 05/02/16 05/02/16 Previous Rx's Medication Instructions Recorded DULoxetine HCL [Cymbalta] 60 mg PO DAILY #30 capsule. 04/24/16 metFORMIN HCL [Glucophage] 1,000 mg PO BID #60 tab 04/24/16 Allergies Allergy/AdvReac Type Severity Reaction Status Date / Time Penicillins AdvReac Severe Swelling Verified 05/02/16 16:25 prochlorperazine AdvReac Severe Hallucinati Verified 05/02/16 16:25 [From Compazine] ons prochlorperazine edisylate AdvReac Severe Hallucinati Verified 05/02/16 16:25 [From Compazine] ons prochlorperazine maleate AdvReac Severe Hallucinati Verified 05/02/16 16:25 [From Compazine] ons bupropion HCl AdvReac Intermediate Nausea & Verified 05/02/16 16:25 [From Wellbutrin] Vomiting gabapentin [From Neurontin] AdvReac Intermediate Nausea & Verified 05/02/16 16: 25 Vomiting amantadine AdvReac Unknown Nausea & Verified 05/02/16 16:25 Vomiting Review of Systems ROS Statement: Those systems with pertinent positive or pertinent negative responses have been documented in the HPI. ROS Other: All systems not noted in ROS Statement are negative. Past Medical History Past Medical History: Diabetes Mellitus, GERD/Reflux, Musculoskeletal Disorder, Neurologic Disorder, Osteoarthritis (OA) Additional Past Medical History / Comment(s): MS, active lesions in brain History of Any Multi-Drug Resistant Organisms: None Reported Past Surgical History: Back Surgery Additional Past Surgical History / Comment(s): c spine Past Anesthesia/Blood Transfusion Reactions: No Reported Reaction Past Psychological History: Anxiety, Depression Additional Psychological History / Comment(s): , lives in the family home with his . 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 No experience. No tobacco or alcohol use. No animal exposures. Smoking Status: Never smoker Past Alcohol Use History: None Reported Past Drug Use History: None Reported - Past Family History Mother Family Medical History: COPD, Hypertension General Exam Limitations: no limitations General appearance: alert, anxious, in distress (Moderate) Eye exam: Present: normal appearance, PERRL, EOMI. Absent: scleral icterus, conjunctival injection, periorbital swelling ENT exam: Present: normal exam, mucous membranes moist Neck exam: Present: normal inspection. Absent: tenderness, meningismus, lymphadenopathy Respiratory exam: Present: normal lung sounds bilaterally. Absent: respiratory distress, wheezes, rales, rhonchi, stridor Cardiovascular Exam: Present: regular rate, normal rhythm, normal heart sounds. Absent: systolic murmur, diastolic murmur, rubs, gallop, clicks Extremities exam: Present: normal inspection, full ROM, normal capillary refill. Absent: tenderness, pedal edema, joint swelling, calf tenderness Back exam: Present: normal inspection Neurological exam: Present: alert, oriented X3, CN II-XII intact, motor sensory deficit (Patient does appear to have some weakness to the left upper extremity) Psychiatric exam: Present: depressed, anxious Skin exam: Present: warm, dry, intact, normal color. Absent: rash Course Vital Signs 05/02/16 16:16 Temperature 96.6 F L Pulse Rate 112 H Respiratory 20 Rate Blood Pressure 150/88 O2 Sat by Pulse 93 L Oximetry Medical Decision Making - Medical Decision Making 50-year-old male presents emergency Department chief complaint of intractable pain. Patient also presents for some weakness with her MS exacerbation as well as suicidal thoughts due to for pain management. This indicates is discussed with Dr. Khan who does agree to the admission he'll have Dr. Choudhary consultative for pain management and we will continue steroids from his exacerbation. Patient and family is in agreement with plan. Patient does admit to suicidal thoughts due to the pain will consult psychiatry as well to see the patient. - Lab Data Result diagrams: 05/02/16 17:13 Lab Results 05/02/16 Range/Units 17:13 WBC 14.5 H (3.8-10.6) k/uL RBC 5.41 (4.30-5.90) m/uL Hgb 16.0 D (13.0-17.5) gm/dL Hct 47.6 (39.0-53.0) % MCV 88.0 (80.0-100.0) fL MCH 29.5 (25.0-35.0) pg MCHC 33.5 (31.0-37.0) g/dL RDW 13.7 (11.5-15.5) % Plt Count 232 (150-450) k/uL Neutrophils % 73 % Lymphocytes % 21 % Monocytes % 4 % Eosinophils % 1 % Basophils % 1 % Neutrophils # 10.5 H (1.3-7.7) k/uL Lymphocytes # 3.0 (1.0-4.8) k/uL Monocytes # 0.6 (0-1.0) k/uL Eosinophils # 0.1 (0-0.7) k/uL Basophils # 0.1 (0-0.2) k/uL Disposition Clinical Impression: Intractable pain, Multiple sclerosis, Exacerbation of multiple sclerosis, Chronic low back pain Disposition: ADMITTED IP TO THIS HOSP Condition: Stable Time of Disposition: 17:39
[2016-05-02 17:29] LABS: Basophils # (A) 0.1 k/uL (0-0.2); Basophils % (A) 1 %; CH 30.3; CHCM 34.6; Eosinophils # (A) 0.1 k/uL (0-0.7); Eosinophils % (A) 1 %; HCT 47.6 % (39.0-53.0); HDW 2.92; Luc # (Auto) 0.17; Luc % (Auto) 1; Lymphocytes % (A) 21 %; MCH 29.5 pg (25.0-35.0); MCHC 33.5 g/dL (31.0-37.0); Monocytes # (A) 0.6 k/uL (0-1.0); Monocytes % (A) 4 %; Neutrophils # (A) 10.5 k/uL (1.3-7.7); Neutrophils % (A) 73 %; RBC 5.41 m/uL (4.30-5.90); RDW 13.7 % (11.5-15.5); WBC 14.5 k/uL (3.8-10.6); WBC (Perox) 13.94
[2016-05-02 17:37] LABS: ALT 110 U/L (21-72); AST 64 U/L (17-59); Alkaline Phosphatase 153 U/L (38-126); Anion Gap 21 mmol/L; Blood Urea Nitrogen 22 mg/dL (9-20); Calcium 9.9 mg/dL (8.4-10.2); Carbon Dioxide 18 mmol/L (22-30); Chloride 104 mmol/L (98-107); Glucose 285 mg/dL (74-99); Non-African American GFR(MDRD) >60 (>60 ml/min/1.73 sqM); Sodium 143 mmol/L (137-145); Total Bilirubin 0.9 mg/dL (0.2-1.3); Total Protein 8.6 g/dL (6.3-8.2)
[2016-05-02] MEDS ORDERED: ACETAMINOPHEN TAB 325 MG TAB PO PRN (17:41)
[2016-05-02] MEDS ORDERED: NALOXONE 0.4 MG/ML 1 ML VIAL IV PRN ×2 (17:41→21:49)
[2016-05-02] MEDS ORDERED: ONDANSETRON 4 MG/2 ML VIAL IVP PRN (17:41)
[2016-05-02 17:45] LABS: Potassium 2.9 mmol/L (3.5-5.1)
[2016-05-02] MEDS ORDERED: POTASSIUM CHLORIDE ORAL LIQUID 40 MEQ/30 ML CUP PO ONE (17:47)
[2016-05-02] MEDS: POTASSIUM CHLORIDE 10 MEQ, LIDOCAINE 2% INJ 10 MG in SODIUM CHLORIDE 0.9% 100 ML IVPB SCH ×2 (18:02→19:16)
[2016-05-02] MEDS: HYDROmorphone 1 MG/ML 1 ML SYRINGE IV PRN ×2 (20:05→23:24)
[2016-05-02] MEDS: PREGABALIN 75 MG CAP PO SCH (20:12)
[2016-05-02] MEDS: metFORMIN 500 MG TAB PO SCH (20:12)
[2016-05-02 20:32] VITALS: BMI 31.7
[2016-05-02 20:32] LABS: Glucose,Whole Blood 283 mg/dL (75-99)
[2016-05-02] MEDS: IBUPROFEN 800 MG TAB PO SCH (20:55)
[2016-05-02] MEDS: DIAZEPAM 5 MG TAB PO SCH (20:55)
[2016-05-02] MEDS: HYDROcodone/APAP 5-325MG 1 EACH TAB PO PRN (21:54)
[2016-05-02] MEDS: HEPARIN SODIUM,PORCINE 5,000 UNIT/ML 1 ML VIAL SQ SCH (23:24)
[2016-05-02] MEDS: methylPREDNISolone SOD SUCCI 125 MG/2 ML VIAL IV SCH (23:48)
[2016-05-03] MEDS: HYDROmorphone 1 MG/ML 1 ML SYRINGE IV PRN ×7 (05:34→23:37)
[2016-05-03] MEDS: methylPREDNISolone SOD SUCCI 125 MG/2 ML VIAL IV SCH ×3 (05:35→17:44)
[2016-05-03] MEDS: HYDROcodone/APAP 5-325MG 1 EACH TAB PO PRN ×5 (06:16→22:30)
[2016-05-03 07:10] LABS: Glucose,Whole Blood 307 mg/dL (75-99)
[2016-05-03] MEDS: DIAZEPAM 5 MG TAB PO SCH ×4 (08:35→22:33)
[2016-05-03] MEDS: HEPARIN SODIUM,PORCINE 5,000 UNIT/ML 1 ML VIAL SQ SCH ×2 (08:35→16:24)
[2016-05-03] MEDS: PREGABALIN 75 MG CAP PO SCH ×2 (08:35→20:31)
[2016-05-03] MEDS: metFORMIN 500 MG TAB PO SCH ×2 (08:35→17:14)
[2016-05-03] MEDS: INSULIN LISPRO (humaLOG) 300 UNIT/3 ML VIAL SQ SCH ×4 (08:35→22:32)
[2016-05-03] MEDS: IBUPROFEN 800 MG TAB PO SCH ×3 (08:35→23:35)
[2016-05-03 08:43] LABS: Basophils % (A) 0 %; CH 29.1; CHCM 32.5; Eosinophils % (A) 0 %; HCT 40.4 % (39.0-53.0); HDW 2.86; Luc # (Auto) 0.04; Luc % (Auto) 0; Lymphocytes # (A) 1.1 k/uL (1.0-4.8); Lymphocytes % (A) 12 %; MCH 28.7 pg (25.0-35.0); MCHC 31.9 g/dL (31.0-37.0); MCV 89.9 fL (80.0-100.0); Mean Platelet Volume 7.1; Monocytes # (A) 0.2 k/uL (0-1.0); Monocytes % (A) 2 %; Neutrophils # (A) 7.8 k/uL (1.3-7.7); Neutrophils % (A) 86 %; RBC 4.49 m/uL (4.30-5.90); RDW 13.7 % (11.5-15.5); WBC 9.1 k/uL (3.8-10.6); WBC (Perox) 9.18
[2016-05-03 08:45] LABS: HGB 12.9 gm/dL (13.0-17.5)
[2016-05-03 08:48] LABS: ALT 93 U/L (21-72); AST 47 U/L (17-59); Alkaline Phosphatase 122 U/L (38-126); Anion Gap 14 mmol/L; Blood Urea Nitrogen 21 mg/dL (9-20); Calcium 9.3 mg/dL (8.4-10.2); Carbon Dioxide 22 mmol/L (22-30); Chloride 107 mmol/L (98-107); Glucose 334 mg/dL (74-99); Magnesium 1.8 mg/dL (1.6-2.3); Non-African American GFR(MDRD) >60 (>60 ml/min/1.73 sqM); Potassium 4.4 mmol/L (3.5-5.1); Sodium 143 mmol/L (137-145); Total Bilirubin 0.7 mg/dL (0.2-1.3); Total Protein 7.2 g/dL (6.3-8.2)
[2016-05-03] MEDS ORDERED: QUEtiapine 25 MG TAB PO PRN (08:55)
[2016-05-03] MEDS ORDERED: DULoxetine HCL 60 MG CAPSULE.DR PO SCH (09:00)
[2016-05-03 09:04] LABS: Hemoglobin A1C 9.9 % (4.2-6.1)
[2016-05-03] MEDS: DULoxetine HCL 30 MG CAPSULE.DR PO SCH (09:33)
--- NOTE | 2016-05-03 11:14 | CONS ---
DATE OF CONSULTATION: REASON FOR CONSULTATION: Depression and suicidal ideation. HISTORY OF PRESENT ILLNESS: The patient is a 50-year-old , male, who was admitted to the medical floor for severe pain. Patient's was at his bedside. She did confirm that the patient has been severely depressed for the last 4 or 6 weeks as prior to this he was on very high dose of opiate for almost 15 years and because of the change of the medical insurance, they had to discontinue all his pain medication. Patient stated that he did see the pain management just couple of days before this admission and he was started on hydrocodone, but he said, "It does not do anything to me." Patient was seen in his previous admission by Dr. Gray for consultation who did start the patient on Cymbalta and discontinued the Zoloft to help his depression and his chronic pain. Patient was tearful throughout my interview and he endorses passive suicidal ideation saying, "I am just praying to God to take me away. I live with this pain." stated that for the last 2 or 3 weeks she took care of all his medication as she is the one who is dispensing his medications and also she removed all the firearms from the house. There is no previous suicidal ideation or intent. also confirms that the patient is not at risk to commit suicide as he never had been alone at home. She has been with him or one of the children staying with him, so he has someone 24 hours. Patient also stated that he has been very anxious and nervous and feelings that since he is off his pain medication, " I don't think I will have cure for this. I don't know, I'm having MS and chronic pain." His medication in the hospital including Dilaudid or hydromorphone 1 mg IV every 3 hours p.r.n., hydrocodone every 4 hours p.r.n., Valium 5 mg 4 times a day as scheduled, Motrin 800 three times a day, Zofran p.r.n., Lyrica 75 mg twice a day, metformin 1000 twice a day. He was started on methylprednisone According to the , he just started new medication for MS last month. His Neurologist is working at [facility] in [place]. ALLERGIES: PENICILLIN, COMPAZINE, WELLBUTRIN, NEURONTIN, SYMMETREL. PAST PSYCHIATRIC HISTORY: There is no previous inpatient psychiatric history. There is no previous history of suicidal attempt. As I mentioned before he saw Dr. Gray in consultation on April 22, 2016, and he was switched from Zoloft 200 mg to Cymbalta and he did refer him to [facility] but patient did not follow throw. Regarding his past medical history: MS, diabetes, chronic pain. SOCIAL HISTORY: Patient has been for 31 years and he lives with his . He has 3 grownup children. He is currently on Social Security disability for MS. Family history of psychiatric illness. Both of his children have anxiety. There is no suicide in the family. MENTAL STATUS EXAMINATION: Patient is overweight male who is crying and sobbing in hysterical way. He gave good eye contact. Seems that he is very anxious and nervous. Thought process is linear. He denied any active suicidal ideation, intent or plan, but he did verbalize passive suicidal ideation and feeling overwhelmed with this chronic pain. There is no report for psychosis. He is alert, oriented to person, place and date. His insight and judgment are fair. DIAGNOSES: 1. Major depression disorder, recurrent, moderate, rule out mood disorder related to multiple sclerosis. 2. Anxiety disorder. 3. Rule out adjustment disorder with mixed emotion, anxiety and depressed mood. 4. Chronic pain syndrome. PLAN: I did discuss with the nursing staff and with the patient medication and I will increase the Cymbalta to 90 mg daily. Also as the patient has been complaining of trouble sleeping at night, I did add Remeron at bedtime for sleep and to improve his appetite. However, since the patient started on prednisone IV, most probably his anxiety and agitation would increase, so I did add Seroquel as needed for anxiety and agitation. I will continue to follow up as long as in the hospital; however, so far, it seems that there is no acute safety risk for this patient as his depression is related to uncontrollable pain, so we need to address aggressive management for his chronic pain and his also MS.
[2016-05-03 12:24] LABS: Glucose,Whole Blood 308 mg/dL (75-99)
--- NOTE | 2016-05-03 15:26 | P.PN ---
Subjective 50-year-old male being seen with the attending today family at bedside the attending did update the plan of care with the family members questions were answered. It's noted the patient has been seen by mental health service. Patient reportedly has been experiencing severe depression for the past 4-6 weeks. Also patient has been on a high dose of opiate forms 15 years. Patient' s been seen by pain management Dr. Chang patient was just discharged on 2016 at that time the patient was to follow-up with Dr. Hall for pain management recommendations by the mental health service were reviewed and appreciated. is easily teary-eyed Objective - Vital Signs Vital signs: Vital Signs Temp 97.9 F 05/03/16 07:00 Pulse 71 05/03/16 07:00 Resp 20 05/03/16 07:00 BP 126/76 05/03/16 07:00 Pulse Ox 95 05/03/16 07:00 Intake & Output 05/02/16 05/03/16 05/03/16 18:59 06:59 18:59 Intake Total 400 Balance 400 Weight 106.141 kg Intake: Oral 400 Other: # Voids 1 - Exam Physical exam 50-year-old male looking older than stated age sitting up in bed family at bedside patient is anxious teary-eyed states feels overwhelmed Lungs essentially clear with adequate air movement on room air Heart S1-S2 audible regular no murmur denying chest pain Abdomen obese soft nontender Extremities tremors noted to the bilateral hands no edema noted - Labs CBC & Chem 7: 05/03/16 07:50 05/03/16 07:50 Labs: Abnormal Lab Results - Last 24 Hours (Table) 05/02/16 05/03/16 05/03/16 Range/Units 20:10 07:08 07:50 Hgb 12.9 L D (13.0-17.5) gm/dL Neutrophils # 7.8 H (1.3-7.7) k/uL BUN (9-20) mg/dL Glucose (74-99) mg/dL POC Glucose (mg/dL) 283 H 307 H (75-99) mg/dL Hemoglobin A1c (4.2-6.1) % ALT (21-72) U/L 05/03/16 05/03/16 05/03/16 Range/Units 07:50 07:50 12:14 Hgb (13.0-17.5) gm/dL Neutrophils # (1.3-7.7) k/uL BUN 21 H (9-20) mg/dL Glucose 334 H (74-99) mg/dL POC Glucose (mg/dL) 308 H (75-99) mg/dL Hemoglobin A1c 9.9 H (4.2-6.1) % ALT 93 H (21-72) U/L Assessment and Plan Plan: Impression Major depressive disorder recurrent moderate rule out mood disorder related to multiple sclerosis History multiple sclerosis Anxiety depressive disorder Rule out adjustment disorder with mixed emotion anxiety depression Type 2 diabetes insulin requiring uncontrolled hemoglobin A1c 10.5 Muscle spasms bilateral lower extremities chronic likely due to multiple sclerosis Chronic pain syndrome with opiate dependency Psychosocial dysfunction secondary to depressive symptoms in the context of acute opiate withdrawal Morbid obesity BMI 32 Acute exacerbation multiple sclerosis Plan Continue recommendations by the mental health service defer to Await further recommendations by neurology Resume home meds as appropriate DVT and GI prophylaxis Monitor blood sugars while on steroids addressed as indicated Continue Solu-Medrol 100 mg IV every 6 for the acute MS exacerbation Further recommendations pending The above dictated assessment and findings were discussed with Dr. Khan. Impression and the plan of care have been dictated as directed. Alma Red nurse practitioner acting as a scribe for Dr. Khan
[2016-05-03 17:19] LABS: Glucose,Whole Blood 240 mg/dL (75-99)
[2016-05-03] MEDS ORDERED: METHOCARBAMOL 750 MG TAB PO PRN (18:53)
--- NOTE | 2016-05-03 19:15 | HP ---
DATE OF ADMISSION: 05/02/2016 CHIEF COMPLAINT: A 50-year-old white male admitted with acute MS exacerbation, acute drug withdrawal and inability to care for himself with suicidal ideations. HISTORY OF PRESENT ILLNESS: This is a 50-year-old white male came to the ER with irretractable pain, inability to ambulate and severe MS exacerbation. He was suicidal, asking friends if he could get his gun or take a bottle of pills. He was admitted to the hospital for MS exacerbation and Dr. Chang has been seeing him for pain. The patient is unable to tolerate or ambulate or do any ADLs or any functioning with himself at home. He is sitting here crying nonstop at this time. Family is asking for help and intervention. He may need a withdrawal clinic at [facility] on discharge done. Home medications include: 1. Valium 5 mg q.i.d. 2. Pain pills b.i.d. 3. [place] 10/325 b.i.d. 4. ( ) 150s subcu q.3 days. 5. Motrin 800 t.i.d. 6. Lyrica 75 b.i.d. 7. Cymbalta 60 mg daily. 8. Metformin 1000 b.i.d. ALLERGIES: PENICILLIN, COMPAZINE AND WELLBUTRIN AND NEURONTIN. REVIEW OF SYSTEMS: PSYCH: As mentioned above, suicidal ideations. MUSCULOSKELETAL: As mentioned above. NEUROLOGIC: As mentioned above. He is an active MS exacerbation, multiple sclerosis, with multiple lesions on recent MRI of his brain. ENDOCRINE: He has obesity, high-dose steroids have been given to him for long periods of time. He has Type 2 diabetes with a hemoglobin A1c 10 to 12. Osteoarthritis. GERD. He has multiple sclerosis, back surgeries been done of the lumbar spine, cervical spine, he has anxiety, depression, suicidal at this time. He grew up on a farm. No experience. Not a smoker. Alcohol. Temperature is 96, pulse rate is in the low 100s, respiratory rate 18 to 20, blood pressure 150/88, O2 sat is 93 on room air. CARDIOVASCULAR: S1 and S2. LUNGS: Show wheezes x4. HEMATOLOGIC: Negative Homans. PSYCHIATRIC: Fair mood and affect. Integument: ( ). SKIN: Warm, dry, intact. ENT: Mucous membranes are within normal limits. Strength 3 out of 5 x 4 extremities. He is crying. PSYCH: He is crying, nervous, anxious, unable to stop crying and asking for pain medicines. ENDOCRINE: His BMI is over 40. White count 14.5, hemoglobin 16. ASSESSMENT: 1. Acute multiple sclerosis exacerbation. 2. Irretractable pain syndrome. 3. Diabetes mellitus. 4. Obesity. 5. Anxiety, depression. PLAN: IV steroid high-dose per Dr. Chang, pain medicines per Dr. Chang. If we cannot control his pain, he will need to be placed at [facility] for chronic pain management withdrawal symptoms over a period of time. Continue with Metformin and Accu-Cheks protocol for diabetes.
[2016-05-03] MEDS: MIRTAZAPINE 15 MG TAB PO SCH (20:31)
--- NOTE | 2016-05-03 20:50 | CONS ---
DATE OF CONSULTATION: 05/03/2016 CHIEF COMPLAINT: Chronic pain and multiple sclerosis exacerbation. HISTORY OF PRESENT ILLNESS: Mr. Taylor is a pleasant 50-year-old male who is being evaluated by the neurology service per the request of Dr. Bruce Khan for the above-mentioned complaints. The patient was evaluated by Dr. Khan yesterday in the outpatient clinic and he was complaining of significant worsening in his chronic low back pain and lower extremity pain. The patient does have history of chronic postoperative low back pain with lower extremity pain and he is being worked up for spinal cord stimulator implantation. Over the past several days, his pain has been more severe and unbearable. He was also complaining of lower extremity weakness and numbness on the left side. The patient does have a history of multiple sclerosis and is currently on Zinbryta monthly injections for this. He has been started on IV steroids with Solu-Medrol. According to the chart, the patient's pain was so severe that he was having some suicidal thoughts. He was evaluated by Psychiatry and he currently does have a sitter at his bedside. He is currently receiving Dilaudid IV every 3 hours as needed and oral hydrocodone as needed. For his muscle spasms, he is on Valium 5 mg 4 times daily as needed. His Cymbalta has been increased by Psychiatry. His back spasms have been occurring more frequently. He has been tried on Flexeril, Zanaflex, and baclofen in the past, but he had either severe side effects or no improvement on those medications. At the time of my evaluation, he rates his pain at 7/10 in intensity. He continues to have numbness on his left side and reports mild improvements in his left lower extremity weakness since starting IV Solu-Medrol. PAST MEDICAL HISTORY: 1. Multiple sclerosis. 2. Chronic postoperative low back pain. 3. Lower extremity causalgia. 4. Diabetes. 5. Gastroesophageal reflux disease. 6. Arthritis. 7. Depression. 8. Anxiety disorder. SOCIAL HISTORY: He denied any tobacco, alcohol or drug use. FAMILY HISTORY: Positive for chronic obstructive pulmonary disease and hypertension. HOME MEDICATIONS: Reviewed in the chart. ALLERGIES: 1. PENICILLIN. 2. COMPAZINE. 3. WELLBUTRIN. 4. NEURONTIN. 5. AMANTADINE. REVIEW OF SYSTEMS: CONSTITUTIONAL: Positive for fatigue and insomnia. EYES: Negative. ENT: Negative. CARDIOVASCULAR: Negative. RESPIRATORY: Positive for shortness of breath when he does have muscle spasms. NEUROLOGICAL: As mentioned above. GASTROINTESTINAL: Positive for occasional heartburn. GENITOURINARY: Negative. MUSCULOSKELETAL: As mentioned above. DERMATOLOGICAL: Negative. ENDOCRINE: Positive for diabetes. PSYCHIATRIC: As mentioned above. PHYSICAL EXAM: Vital signs show a temperature of 97.4, pulse 74, respiration 20, blood pressure 136/57. GENERAL APPEARANCE: The patient is a mildly obese male who appears to be in mild distress due to pain. HEENT: Normocephalic, atraumatic. No facial asymmetry is seen. Neck is supple with no masses felt. CARDIOVASCULAR: Regular rate and rhythm. ABDOMEN: Nontender, nondistended. Extremities showed no edema or clubbing. NEUROLOGICAL EXAM: The patient is alert and oriented x3. Speech and language are normal. Strength is 4+/5 in the left lower extremity and left upper extremity. Strength is 5-/5 on the right side. Sensory exam showed diminished light touch sensation on the left compared to the right. No facial asymmetry is noticed on cranial nerve testing. Mild postural tremors are seen. No seizure-like activity is noticed. IMPRESSION: 1. Acute multiple sclerosis exacerbation. 2. Left-sided weakness. 3. Left-sided sensory deficit. 4. Chronic pain syndrome. 5. Lower extremity causalgia. 6. Suicidal thoughts. 7. Severe muscle spasms. RECOMMENDATION: The patient continues to have some weakness on the left side, but this has improved, according to the patient. Continue IV Solu-Medrol at the current dose. I do recommend Accu-Cheks and sliding scale insulin. His pain is better controlled at this time on IV analgesics. The patient is being worked up in the outpatient clinic for a spinal cord stimulator. I had a lengthy discussion with the patient and his , and we will try to accelerate that process. He is scheduled for psychological clearance for the spinal cord stimulator. For his muscle spasms, I will try him on Robaxin 750 mg every 6 hours as needed. Psychiatry is following the patient regarding his suicidal thoughts and his medications have been adjusted. I will consult Physical Therapy to evaluate and treat. Continue the rest of your current workup and management. I will continue to follow with you. Further recommendations to follow. Thank you, Dr. Khan, for allowing me to participate in the care of your patient. If you have any questions, please feel free to contact me.
[2016-05-03 21:00] LABS: Glucose,Whole Blood 268 mg/dL (75-99)
[2016-05-04] MEDS: HEPARIN SODIUM,PORCINE 5,000 UNIT/ML 1 ML VIAL SQ SCH ×4 (00:22→23:33)
[2016-05-04] MEDS: methylPREDNISolone SOD SUCCI 125 MG/2 ML VIAL IV SCH ×5 (00:22→23:33)
[2016-05-04] MEDS: HYDROcodone/APAP 5-325MG 1 EACH TAB PO PRN (04:45)
[2016-05-04] MEDS: HYDROmorphone 1 MG/ML 1 ML SYRINGE IV PRN ×6 (05:38→21:24)
[2016-05-04 07:40] LABS: Glucose,Whole Blood 273 mg/dL (75-99)
[2016-05-04] MEDS: INSULIN LISPRO (humaLOG) 300 UNIT/3 ML VIAL SQ SCH ×4 (09:15→21:01)
[2016-05-04] MEDS: PREGABALIN 75 MG CAP PO SCH ×2 (09:16→20:43)
[2016-05-04] MEDS: DIAZEPAM 5 MG TAB PO SCH ×4 (09:16→20:58)
[2016-05-04] MEDS: metFORMIN 500 MG TAB PO SCH ×2 (09:16→17:32)
[2016-05-04] MEDS: DULoxetine HCL 30 MG CAPSULE.DR PO SCH (09:16)
[2016-05-04] MEDS: IBUPROFEN 800 MG TAB PO SCH ×3 (09:24→20:58)
--- NOTE | 2016-05-04 09:54 | P.PN ---
Subjective 50-year-old male being seen on rounds with the attending this morning. Family at bedside. The attending did update the plan of care with the patient and the patient's spouse. Patient has been seen by mental health service as well as neurology. This morning the patient continues to report having some numbness on the left side there is been a slight improvement in the left lower extremity weakness since starting IV Solu-Medrol. Patient currently is stating he does not feel suicidal after being admitted and treated his has not had a further ideation. Did review neurology's recommendations the patient is being worked up in the outpatient clinic for a spinal cord stimulator. Patient is being scheduled for a psychological clearance for the spinal cord stimulator per recommendations by neurology. For the muscle spasms patient is currently to be on Robaxin 750 every 6 hours. Patients psychotropic meds have been adjusted. PT OT continues to participate in the plan of care Objective - Vital Signs Vital signs: Vital Signs Temp 97.3 F L 05/04/16 07:00 Pulse 80 05/04/16 07:00 Resp 20 05/04/16 07:00 BP 147/88 05/04/16 07:00 Pulse Ox 95 05/04/16 07:00 Intake & Output 05/03/16 05/04/16 05/04/16 18:59 06:59 18:59 Intake Total 240 150 200 Balance 240 150 200 Weight 106.141 kg Intake: Oral 240 150 200 Other: # Voids 2 1 # Bowel Movements 0 - Exam Physical exam 50-year-old male being seen on rounds sitting up is more awake and alert, calm affect Lungs essentially clear adequate air movement Heart S1-S2 audible regular Abdomen soft nontender no reports of nausea vomiting no frequent stooling Extremities less tremors noted to the bilateral hands no edema noted patient states less weakness in the lower extremities - Labs CBC & Chem 7: 05/03/16 07:50 05/03/16 07:50 Labs: Abnormal Lab Results - Last 24 Hours (Table) 05/03/16 05/03/16 05/03/16 Range/Units 12:14 17:18 20:36 POC Glucose (mg/dL) 308 H 240 H 268 H (75-99) mg/dL 05/04/16 Range/Units 07:28 POC Glucose (mg/dL) 273 H (75-99) mg/dL Assessment and Plan Plan: Impression Major depressive disorder recurrent moderate rule out mood disorder related to multiple sclerosis History multiple sclerosis Anxiety depressive disorder Rule out adjustment disorder with mixed emotion anxiety depression Type 2 diabetes insulin requiring uncontrolled hemoglobin A1c 10.5 Muscle spasms bilateral lower extremities chronic likely due to multiple sclerosis Chronic pain syndrome with opiate dependency Psychosocial dysfunction secondary to depressive symptoms in the context of acute opiate withdrawal Morbid obesity BMI 32 Acute exacerbation multiple sclerosis Hyperglycemic episodes likely due to steroid Plan Continue recommendations by the mental health service defer to DVT and GI prophylaxis Continue Solu-Medrol 100 mg IV every 6 for the acute MS exacerbation Further recommendations pending PT OT with fall precautions Monitor the blood sugars while on steroids using sliding scale intake worker To eval provide information for treatment centers for opiate dependency The above dictated assessment and findings were discussed with Dr. Khan. Impression and the plan of care have been dictated as directed. Alma Red nurse practitioner acting as a scribe for Dr. Khan
[2016-05-04 12:19] LABS: Glucose,Whole Blood 279 mg/dL (75-99)
--- NOTE | 2016-05-04 12:37 | P.PN ---
Progress Note - Text Patient was seen for psychiatric follow-up : I talked with patient and his :patient is improving mentally as he has been able to sleep through night with Remeron ,denies any suicidal or homicidal ideation,talked about his pain and declining of his physical health ,he endorses high anxiety and irrational fear that his will leave him He endorses crying episodes due to chronic pain ,reports that he has panic attack "Getting worse since started Prednisone",patient has been on valium for more than 10 years ,he said "I have high tolerance ,current dose of Valium is not helping me" I discussed with patient and spouse cross addiction ,treatment options and using low dose of Seroquel for anxiety ,they verbalized understanding MENTAL STATUS EXAM: Patient was sobbing as yesterday ,speech is coherent ,alert and oriented to person ,place and today date ,denies any psychotic features ,denies any suicidal or homicidal ideation ,denies any side-effects from psychotropic medications PLAN:Increase Cymbalta to 120 mg ,continue low dose of Remeron ,add Seroquel for anxiety ,refer to outpatient counseling when medically cleared
[2016-05-04] MEDS: FAMOTIDINE 20 MG TAB PO SCH ×2 (12:56→20:43)
[2016-05-04] MEDS: QUEtiapine 25 MG TAB PO SCH ×2 (16:10→20:59)
--- NOTE | 2016-05-04 16:37 | P.PN ---
Subjective Principal diagnosis: Patient is a pleasant 50-year-old male who is being followed by the neurology service for chronic pain of multiple sclerosis exacerbation. Patient does have a history of chronic postoperative low back pain and lower extremity pain. Patient is currently being worked up in our office for spinal cord stimulator implantation. Patient states his pain continues to be 8/10. Pain is currently being managed with IV Dilaudid and oral hydrocodone as needed. He is currently receiving IV steroids for his MS exacerbation. Patient does state left-sided numbness and weakness has mildly improved since being on steroids. At the time of my evaluation, patient is resting comfortably in bed and appears to be in no acute distress. Family is at the bedside. Objective - Vital Signs Vital signs: Vital Signs Temp 96.9 F L 05/04/16 15:00 Pulse 74 05/04/16 15:00 Resp 18 05/04/16 15:00 BP 151/96 05/04/16 15:00 Pulse Ox 94 L 05/04/16 15:00 Intake & Output 05/03/16 05/04/16 05/04/16 18:59 06:59 18:59 Intake Total 240 150 200 Balance 240 150 200 Weight 106.141 kg Intake: Oral 240 150 200 Other: # Voids 2 1 2 # Bowel Movements 0 1 - Exam PHYSICAL EXAM: GENERAL APPEARANCE: Patient is a well-developed, male who appears to be in no acute distress. HEENT: Normocephalic, atraumatic, no facial asymmetry is seen. Neck is supple with no masses felt. CARDIOVASCULAR: Regular rate and rhythm. ABDOMEN: Nontender, nondistended. EXTREMITIES: Show no edema or clubbing. NEUROLOGICAL EXAM: She is awake, alert, and oriented 3. Speech and language are normal. Strength is 4+/5 in the left upper and lower extremities. Strength is 5-/5 on the right upper and lower extremity. Sensory exam showed diminished to light touch on the left side as compared to the right side. No facial asymmetry is noted on cranial nerve testing. Mild postural tremors are noted. No seizure-like activity is seen. - Labs CBC & Chem 7: 05/03/16 07:50 05/03/16 07:50 Labs: Abnormal Lab Results - Last 24 Hours (Table) 05/03/16 05/03/16 05/04/16 Range/Units 17:18 20:36 07:28 POC Glucose (mg/dL) 240 H 268 H 273 H (75-99) mg/dL 05/04/16 Range/Units 12:15 POC Glucose (mg/dL) 279 H (75-99) mg/dL Assessment and Plan Plan: Impression: 1. Acute multiple sclerosis exacerbation 2. Left-sided weakness 3. Left-sided sensory deficit 4. Chronic pain syndrome 5. Lower extremity causalgia 6. Suicidal thoughts 7. Severe muscle spasm Recommendations: Patient continues to improve on IV steroids. Patient's pain is still very difficult to control. He continues to be on IV analgesics. Patient is being worked up in the outpatient setting for spinal cord stimulator placement. I will try to facilitate the psychiatric evaluation that needs to be done prior to spinal cord stimulator implantation. Our psychologist is looking into speeding up his appointment so that we can get the spinal cord stimulator moving forward. Psychiatry is following the patient regarding his suicidal thoughts and his medications have been adjusted. I recommend continue physical therapy. Continue current medical management. I will continue to follow with you. Further recommendations to follow. I performed an examination of the patient and discussed the management with the FAMILY SOCIOLOGIST. I have reviewed the FAMILY SOCIOLOGIST notes and agree with the findings and plan of care.
[2016-05-04 17:29] LABS: Glucose,Whole Blood 288 mg/dL (75-99)
[2016-05-04] MEDS: MIRTAZAPINE 15 MG TAB PO SCH (20:43)
[2016-05-04 20:49] LABS: Glucose,Whole Blood 319 mg/dL (75-99)
[2016-05-05] MEDS: HYDROmorphone 1 MG/ML 1 ML SYRINGE IV PRN ×2 (04:28→07:33)
[2016-05-05] MEDS: methylPREDNISolone SOD SUCCI 125 MG/2 ML VIAL IV SCH ×3 (05:35→17:47)
[2016-05-05] MEDS: HYDROcodone/APAP 5-325MG 1 EACH TAB PO PRN ×2 (07:07→14:06)
[2016-05-05 07:12] LABS: Glucose,Whole Blood 290 mg/dL (75-99)
[2016-05-05] MEDS: DIAZEPAM 5 MG TAB PO SCH ×4 (07:35→21:34)
[2016-05-05] MEDS: HEPARIN SODIUM,PORCINE 5,000 UNIT/ML 1 ML VIAL SQ SCH ×2 (07:35→15:25)
[2016-05-05] MEDS: metFORMIN 500 MG TAB PO SCH ×2 (07:35→17:04)
[2016-05-05] MEDS: INSULIN LISPRO (humaLOG) 300 UNIT/3 ML VIAL SQ SCH ×4 (07:35→21:29)
[2016-05-05] MEDS: QUEtiapine 25 MG TAB PO SCH ×3 (07:36→21:31)
[2016-05-05] MEDS: DULoxetine HCL 60 MG CAPSULE.DR PO SCH (07:36)
[2016-05-05] MEDS: FAMOTIDINE 20 MG TAB PO SCH ×2 (07:36→21:29)
[2016-05-05] MEDS: PREGABALIN 75 MG CAP PO SCH ×2 (07:36→21:31)
[2016-05-05] MEDS: IBUPROFEN 800 MG TAB PO SCH ×3 (07:36→21:34)
--- NOTE | 2016-05-05 08:52 | P.PN ---
Subjective 50-year-old being seen on rounds this morning at bedside patient reportedly slept well last night. Did speak with the patient and the patient's about tapering the IV Dilaudid down patient is agreeing. Patient states he is also able to ambulate from the bed to the bathroom with the use of a walker. Patient is less anxious. Recommendations from the mental health and neurology noted appreciated and reviewed Objective - Vital Signs Vital signs: Vital Signs Temp 97.0 F L 05/05/16 07:00 Pulse 62 05/05/16 07:00 Resp 20 05/05/16 07:00 BP 152/82 05/05/16 07:00 Pulse Ox 96 05/05/16 07:00 Intake & Output 05/04/16 05/05/16 05/05/16 18:59 06:59 18:59 Intake Total 200 240 Balance 200 240 Intake: Oral 200 240 Other: Voiding Method Urinal Urinal # Voids 2 1 # Bowel Movements 1 - Exam Physical exam 50-year-old male patient sitting up in bed less anxious no tremors, calm states slept well last night Lungs essentially clear adequate air movement on room air Heart S1-S2 audible regular Abdomen soft nontender no reports of nausea vomiting extremities no edema noted less tremors and the hands - Labs CBC & Chem 7: 05/03/16 07:50 05/03/16 07:50 Labs: Abnormal Lab Results - Last 24 Hours (Table) 05/04/16 05/04/16 05/04/16 Range/Units 12:15 17:25 20:47 POC Glucose (mg/dL) 279 H 288 H 319 H (75-99) mg/dL 05/05/16 Range/Units 07:00 POC Glucose (mg/dL) 290 H (75-99) mg/dL Assessment and Plan Plan: Impression Major depressive disorder recurrent moderate rule out mood disorder related to multiple sclerosis History multiple sclerosis Anxiety depressive disorder Rule out adjustment disorder with mixed emotion anxiety depression Type 2 diabetes insulin requiring uncontrolled hemoglobin A1c 10.5 Muscle spasms bilateral lower extremities chronic likely due to multiple sclerosis Chronic pain syndrome with opiate dependency Psychosocial dysfunction secondary to depressive symptoms in the context of acute opiate withdrawal Morbid obesity BMI 32 Acute exacerbation multiple sclerosis Hyperglycemic episodes likely due to steroid Start tapering IV dilaudid down 0.5 IV every 4 hours when necessary Plan Continue recommendations by the mental health service defer to DVT and GI prophylaxis Continue Solu-Medrol 100 mg IV every 6 for the acute MS exacerbation Further recommendations pending PT OT with fall precautions Monitor the blood sugars while on steroids using sliding scale maintenance worker To eval provide information for treatment centers for opiate dependency The above dictated assessment and findings were discussed with Dr. Khan. Impression and the plan of care have been dictated as directed. Alma Red nurse practitioner acting as a scribe for Dr. Khan
[2016-05-05] MEDS: HYDROmorphone 1 MG/ML 1 ML SYRINGE IVP PRN ×3 (11:06→20:04)
[2016-05-05 12:47] LABS: Glucose,Whole Blood 336 mg/dL (75-99)
--- NOTE | 2016-05-05 14:43 | P.PN ---
Subjective Principal diagnosis: Patient is a pleasant 50-year-old male who is being followed by the neurology service for chronic pain of multiple sclerosis exacerbation. Patient does have a history of chronic postoperative low back pain and lower extremity pain. Patient is currently being worked up in our office for spinal cord stimulator implantation. Patient states his pain continues has been better controlled. IV Dilaudid is being weaned. Pain is currently being managed with oral hydrocodone as needed. He is currently receiving IV steroids for his MS exacerbation. Patient does state left-sided numbness and weakness has mildly improved since being on steroids. Patient has also been seen by psychiatry and has been placed on Seroquel for anxiety and his Cymbalta has been increased. At the time of my evaluation, patient is resting comfortably in bed and appears to be in no acute distress. Family is at the bedside. Objective - Vital Signs Vital signs: Vital Signs Temp 97.0 F L 05/05/16 07:00 Pulse 62 05/05/16 07:00 Resp 20 05/05/16 07:00 BP 152/82 05/05/16 07:00 Pulse Ox 96 05/05/16 07:00 Intake & Output 05/04/16 05/05/16 05/05/16 18:59 06:59 18:59 Intake Total 200 240 240 Balance 200 240 240 Intake: Oral 200 240 240 Other: Voiding Method Urinal Urinal # Voids 2 1 2 # Bowel Movements 1 - Exam PHYSICAL EXAM: GENERAL APPEARANCE: Patient is a well-developed, male who appears to be in no acute distress. HEENT: Normocephalic, atraumatic, no facial asymmetry is seen. Neck is supple with no masses felt. CARDIOVASCULAR: Regular rate and rhythm. ABDOMEN: Nontender, nondistended. EXTREMITIES: Show no edema or clubbing. NEUROLOGICAL EXAM: Patient is awake, alert, and oriented 3. Speech and language are normal. Strength is 4+/5 in the left upper and lower extremities. Strength is 5-/5 on the right upper and lower extremity. Sensory exam showed diminished to light touch on the left side as compared to the right side. No facial asymmetry is noted on cranial nerve testing. Mild postural tremors are noted. No seizure-like activity is seen. - Labs CBC & Chem 7: 05/03/16 07:50 05/03/16 07:50 Labs: Abnormal Lab Results - Last 24 Hours (Table) 05/04/16 05/04/16 05/05/16 Range/Units 17:25 20:47 07:00 POC Glucose (mg/dL) 288 H 319 H 290 H (75-99) mg/dL 05/05/16 Range/Units 12:29 POC Glucose (mg/dL) 336 H (75-99) mg/dL Assessment and Plan Plan: Impression: 1. Acute multiple sclerosis exacerbation 2. Left-sided weakness 3. Left-sided sensory deficit 4. Chronic pain syndrome 5. Lower extremity causalgia 6. Suicidal thoughts 7. Severe muscle spasm Recommendations: Patient continues to improve on IV steroids. Okay to DC steroids upon discharge. Patient's pain is much more tolerable. He continues to be on IV analgesics which are being weaned. Patient is being worked up in the outpatient setting for spinal cord stimulator placement. I will try to facilitate the psychiatric evaluation that needs to be done prior to spinal cord stimulator implantation. Our psychologist is looking into speeding up his appointment so that we can get the spinal cord stimulator moving forward. I recommend continue physical therapy. Continue current medical management. Psychiatry is following the patient and his medications have been adjusted. Patient has an appointment on Sunday to follow up with us in the office. Patient is stable for discharge from neurology standpoint. I will continue to follow with you on an as-needed basis. Feel free to call with any questions or concerns. I performed an examination of the patient and discussed the management with the LINE CONTROLLER. I have reviewed the LINE CONTROLLER notes and agree with the findings and plan of care.
--- NOTE | 2016-05-05 14:44 | P.PN ---
Progress Note - Text Patient was seen for psychiatric follow-up : I talked with patient and his :patient is improving mentally as he has been able to sleep through night,,denies any suicidal or homicidal ideation, talked about his pain and his hope that new procedure will control it without opium pain medications ,reports that his anxiety is under control and able to tolerate weaning off DILAUDID ,denies any side-effects from psychotropic medications MENTAL STATUS EXAM: Patient was smiling ,speech is coherent ,alert and oriented to person ,place and today date ,denies any psychotic features ,denies any suicidal or homicidal ideation ,denies any manic or hypomanic features ,denies any hopeless or helpless feeling PLAN:Continue current psychotropic medications ,refer to outpatient counseling when medically cleared
[2016-05-05 17:14] LABS: Glucose,Whole Blood 303 mg/dL (75-99)
[2016-05-05 21:17] LABS: Glucose,Whole Blood 293 mg/dL (75-99)
[2016-05-05] MEDS: MIRTAZAPINE 15 MG TAB PO SCH (21:30)
[2016-05-06] MEDS: HEPARIN SODIUM,PORCINE 5,000 UNIT/ML 1 ML VIAL SQ SCH ×4 (00:13→23:06)
[2016-05-06] MEDS: methylPREDNISolone SOD SUCCI 125 MG/2 ML VIAL IV SCH ×5 (00:13→23:06)
[2016-05-06] MEDS: HYDROmorphone 1 MG/ML 1 ML SYRINGE IVP PRN ×6 (02:48→23:53)
[2016-05-06 06:56] LABS: Glucose,Whole Blood 308 mg/dL (75-99)
[2016-05-06] MEDS: IBUPROFEN 800 MG TAB PO SCH ×3 (07:13→21:06)
[2016-05-06] MEDS: FAMOTIDINE 20 MG TAB PO SCH ×2 (07:14→21:06)
[2016-05-06] MEDS: DIAZEPAM 5 MG TAB PO SCH ×4 (07:14→21:06)
[2016-05-06] MEDS: metFORMIN 500 MG TAB PO SCH ×2 (07:14→17:09)
[2016-05-06] MEDS: QUEtiapine 25 MG TAB PO SCH ×3 (07:14→21:06)
[2016-05-06] MEDS: PREGABALIN 75 MG CAP PO SCH ×2 (07:14→21:06)
[2016-05-06] MEDS: DULoxetine HCL 60 MG CAPSULE.DR PO SCH (07:15)
[2016-05-06] MEDS: INSULIN LISPRO (humaLOG) 300 UNIT/3 ML VIAL SQ SCH ×4 (07:15→21:07)
[2016-05-06 12:11] LABS: Glucose,Whole Blood 279 mg/dL (75-99)
[2016-05-06 17:08] LABS: Glucose,Whole Blood 294 mg/dL (75-99)
[2016-05-06 20:40] LABS: Glucose,Whole Blood 271 mg/dL (75-99)
[2016-05-06] MEDS: MIRTAZAPINE 15 MG TAB PO SCH (21:06)
[2016-05-06 23:34] VITALS: RESP 16
[2016-05-07] MEDS: methylPREDNISolone SOD SUCCI 125 MG/2 ML VIAL IV SCH (05:29)
[2016-05-07] MEDS: HYDROmorphone 1 MG/ML 1 ML SYRINGE IVP PRN ×2 (05:30→09:34)
[2016-05-07 07:07] LABS: Glucose,Whole Blood 288 mg/dL (75-99)
[2016-05-07] MEDS: PREGABALIN 75 MG CAP PO SCH (07:25)
[2016-05-07] MEDS: metFORMIN 500 MG TAB PO SCH (07:26)
[2016-05-07] MEDS: HEPARIN SODIUM,PORCINE 5,000 UNIT/ML 1 ML VIAL SQ SCH (07:26)
[2016-05-07] MEDS: DIAZEPAM 5 MG TAB PO SCH (07:26)
[2016-05-07] MEDS: IBUPROFEN 800 MG TAB PO SCH (07:26)
[2016-05-07] MEDS: FAMOTIDINE 20 MG TAB PO SCH (07:26)
[2016-05-07] MEDS: QUEtiapine 25 MG TAB PO SCH (07:26)
[2016-05-07] MEDS: DULoxetine HCL 60 MG CAPSULE.DR PO SCH (07:26)
[2016-05-07] MEDS: INSULIN LISPRO (humaLOG) 300 UNIT/3 ML VIAL SQ SCH (07:26)
[2016-05-07 07:34] VITALS: BP 185/88; PULSE 62; TEMP 96.2
--- NOTE | 2016-05-08 10:09 | PN ---
DATE OF SERVICE: 05/06/2016 SUBJECTIVE: Alonzo Taylor has MS exacerbation, addiction to narcotics, diabetes mellitus, generalized debility and weakness. The patient is slowly improving with increased muscle relaxers, increased Cymbalta, increased mood disorder medications Seroquel and Remeron. The patient is improving. Possible discharge home in the next 24 to 48 hours. VITAL SIGNS: Stable, afebrile. CARDIOVASCULAR: S1 and S2. LUNGS: Clear. GI: Soft. HEMATOLOGIC: Negative Homans. PSYCHIATRIC: Fair mood and affect. MUSCULOSKELETAL: 3/5 x4. ASSESSMENT: 1. Acute multiple sclerosis exacerbation. 2. Uncontrolled diabetes mellitus. 3. Chronic pain syndrome. Continue with current treatment. Steroid taper may be ordered for tomorrow on discharge. Possible discharge home. Wean off narcotics. Continue with muscle relaxers.
[2016-05-11] MEDS ORDERED: [UNRECOGNIZED DRUG - OTHER] SQ SCH (09:00)
--- NOTE | 2016-06-12 18:50 | DS ---
DATE OF ADMISSION: 05/02/2016 DATE OF DISCHARGE: 05/07/2016 DISCHARGE MEDICATIONS: 1. [place] 10/325 b.i.d. 2. Valium 5 q.i.d. 3. Metformin 1000 b.i.d. 4. ( ) 75 b.i.d. 5. Motrin 800 t.i.d. 6. ( ) 115 mg subcu q. 30 days. 7. ( ) 25 mg daily. 8. Cymbalta 60 mg 2 tabs daily. 9. Remeron 15 at bedtime. 10. Seroquel 12.5 mg t.i.d. 11. Prednisone 20 mg daily. DISCHARGE DIAGNOSES: 1. Acute drug withdrawal. 2. Depression. 3. Suicide ideation. 4. Very serious narcotic dependence. 5. New onset diabetes mellitus. 6. Multiple sclerosis. 7. Chronic pain disease. HOSPITAL COURSE OF EVENTS: The patient came to the hospital after being abruptly cut off his medications from his primary care physician, that was stopped him from taking 480 mg of oxycodone in one day that he has been on for a long time. He just cut him off. The patient came in with acute drug withdrawal and severe agitation, screaming, uncontrollable pain. Was seen by psychiatry and neurology and chronic pain physicians. We weaned him down and try to get him on some withdrawal medications and some anxiety, depression medications and a new Pain physician and to a reasonable level for multiple days it took as he was withdrawn from drugs and we stabilized him the best we could and he will follow up as an outpatient with new pain physician, Dr. Chang, psychiatry and myself for diabetes. Please see further orders.
== END 2016-05-07 11:17 | disposition home or self-care (01) | DRG 897 ==
LOC: EC 15:51 → 4MS4W 17:51
PROVIDERS: ADMIT Family Medicine; ATTEND Family Medicine
DX: F11.23 Opioid dependence with withdrawal (principal); R45.851 Suicidal ideations; F33.1 Major depressive disorder, recurrent, moderate; G35 Multiple sclerosis; K21.9 Gastro-esophageal reflux disease without esophagitis; M19.90 Unspecified osteoarthritis, unspecified site; G89.4 Chronic pain syndrome; E11.65 Type 2 diabetes mellitus with hyperglycemia; M54.5 Low back pain; M62.838 Other muscle spasm; T38.0X5A Adverse effect of glucocorticoids and synthetic analogues, initial encounter; F41.0 Panic disorder [episodic paroxysmal anxiety]; Z79.84 Long term (current) use of oral hypoglycemic drugs; Z79.1 Long term (current) use of non-steroidal anti-inflammatories (NSAID); Z79.899 Other long term (current) drug therapy
CPT/HCPCS: 36415; 80053; 82075; 83036; 83735; 84100; 85025; 96361; 96365; 96375; 99285

== ENCOUNTER → 2016-05-22 | Outpatient (CLI) | payer BC ==
[2016-05-22 13:59] LABS: Hemoglobin A1C 9.5 % (4.2-6.1)
[2016-05-22 14:13] LABS: Calcium 9.6 mg/dL (8.4-10.2); Magnesium 1.7 mg/dL (1.6-2.3)
[2016-05-24 07:13] LABS: Vitamin E (Alpha Tocopherol) 1102 ug/dL (500-1800)
[2016-05-31 01:39] LABS: Vitamin K 140 pg/mL (80-1160)
[2016-06-02 09:48] LABS: Mis test requested (Blood) VITAMIN B3
== END ==
LOC: LABWHC1 13:10
PROVIDERS: ATTEND Psychiatry & Neurology Pain Medicine
DX: G89.4 Chronic pain syndrome (principal); G62.9 Polyneuropathy, unspecified
CPT/HCPCS: 36415; 82306; 82310; 82550; 82607; 83036; 83519; 83735; 84207; 84425; 84446; 84590; 84591; 84597

== ENCOUNTER 2016-08-18 15:57 | Emergency (ER) | payer BC, OTHER ==
--- NOTE | 2016-08-18 16:39 | ED ---
General Adult HPI - General Chief complaint: Seizure Stated complaint: Dr Ceballos/Naomy Time Seen by Provider: 08/18/16 16:27 Source: patient, family, RN notes reviewed Mode of arrival: wheelchair Limitations: physical limitation - History of Present Illness Initial comments: Patient is a pleasant 51-year-old male presenting to the emergency department following concern for seizure. Patient has had wanted to doesn't episodes over the past 3-4 days. Patient has episodes last seconds to minutes. Patient does have appearance of stiff muscle movements that can be violent at times. Patient does have his eyes open however is less responsive. Patient does not recall these episodes. No significant trauma. Patient did see his neurologist today for MS that has been worsening over the past 6 months. These episodes were witnessed. Plan was made for infusion at [facility]. The [facility] was closing and unable to accept the patient. - Related Data Home Medications Medication Instructions Recorded Confirmed Ibuprofen [Motrin] 800 mg PO TID 05/02/16 08/18/16 Pregabalin [Lyrica] 150 mg PO BID 05/02/16 08/18/16 Testosterone [Androgel 1% Gel Pump] 2 pump TOPICAL DAILY 05/02/16 08/18/16 Baclofen [Lioresal] 20 mg PO QID 08/18/16 08/18/16 DULoxetine HCL [Cymbalta] 120 mg PO HS 08/18/16 08/18/16 Empagliflozin/Linagliptin 1 tab PO DAILY 08/18/16 08/18/16 [Glyxambi 25 mg-5 mg Tablet] Fycompa 6mg 6 mg PO DAILY 08/18/16 08/18/16 tiZANidine HCL [Zanaflex] 1 mg PO Q6H 08/18/16 08/18/16 Previous Rx's Medication Instructions Recorded metFORMIN HCL [Glucophage] 1,000 mg PO BID #60 tab 04/24/16 Mirtazapine [Remeron] 15 mg PO HS #30 tab 05/07/16 QUEtiapine [SEROquel] 12.5 mg PO TID #90 tab 05/07/16 Divalproex [Depakote] 500 mg PO BID #6 tablet. 08/18/16 Allergies Allergy/AdvReac Type Severity Reaction Status Date / Time Penicillins AdvReac Severe Swelling Verified 08/18/16 16:32 prochlorperazine AdvReac Severe Hallucinati Verified 08/18/16 16:32 [From Compazine] ons prochlorperazine edisylate AdvReac Severe Hallucinati Verified 08/18/16 16:32 [From Compazine] ons prochlorperazine maleate AdvReac Severe Hallucinati Verified 08/18/16 16:32 [From Compazine] ons bupropion HCl AdvReac Intermediate Nausea & Verified 05/02/16 16:25 [From Wellbutrin] Vomiting gabapentin [From Neurontin] AdvReac Intermediate Nausea & Verified 05/02/16 16: 25 Vomiting amantadine AdvReac Unknown Nausea & Verified 05/02/16 16:25 Vomiting Review of Systems ROS Statement: Those systems with pertinent positive or pertinent negative responses have been documented in the HPI. ROS Other: All systems not noted in ROS Statement are negative. Constitutional: Denies: fever Eyes: Denies: eye pain ENT: Denies: ear pain Respiratory: Denies: cough Cardiovascular: Denies: chest pain Endocrine: Reports: fatigue Gastrointestinal: Denies: abdominal pain Genitourinary: Denies: dysuria Musculoskeletal: Denies: back pain Skin: Denies: rash Neurological: Reports: weakness. Denies: headache Past Medical History Past Medical History: Diabetes Mellitus, GERD/Reflux, Musculoskeletal Disorder, Neurologic Disorder, Osteoarthritis (OA) Additional Past Medical History / Comment(s): MS, active lesions in brain History of Any Multi-Drug Resistant Organisms: None Reported Past Surgical History: Back Surgery Additional Past Surgical History / Comment(s): c spine, lumbar Past Anesthesia/Blood Transfusion Reactions: No Reported Reaction Past Psychological History: Anxiety, Depression Additional Psychological History / Comment(s): , lives in the family home with his . 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 No experience. No tobacco or alcohol use. No animal exposures. Smoking Status: Never smoker Past Alcohol Use History: None Reported Past Drug Use History: None Reported - Past Family History Mother Family Medical History: COPD, Hypertension General Exam Limitations: physical limitation General appearance: alert, in no apparent distress Head exam: Present: atraumatic Pupils: Present: mydriatic ENT exam: Present: normal oropharynx Neck exam: Present: normal inspection Respiratory exam: Present: normal lung sounds bilaterally Cardiovascular Exam: Present: regular rate, normal rhythm GI/Abdominal exam: Present: soft. Absent: tenderness Extremities exam: Present: normal inspection Neurological exam: Present: alert, CN II-XII intact Expanded Motor strength exam: RUE: 4, LUE: 3, RLE: 4, LLE: 3 Psychiatric exam: Present: normal affect, normal mood Skin exam: Present: normal color Course Vital Signs 08/18/16 08/18/16 08/18/16 16:28 17:32 18:22 Temperature 98.6 F Pulse Rate 82 70 66 Respiratory 16 18 18 Rate Blood Pressure 182/89 168/79 175/80 O2 Sat by Pulse 95 94 L 97 Oximetry - Reevaluation(s) Reevaluation #1: 08/18/16 16:42 Case was discussed in detail with Dr. Chang who did disability because patient. He does request Depakote 15 mg/kg IV and discharge. He is agreeable to blood work and computed tomography scan of the like call back if anything returns abnormal. 08/18/16 18:31 Case again discussed with Dr. Chang still is comfortable with discharge. He feels computed tomography scan findings are likely incidental and will follow- up. He does state that pupil dilation is chronic. EKG Findings - EKG Comments: EKG Findings:: Normal sinus rhythm 67. GA 160. QRS 108. QT 34. QTC 45. Left axis. Voltage criteria for LVH. No acute ST change. Medical Decision Making - Medical Decision Making Patient reevaluated. Patient and family updated on results and need for follow- up. is unclear if they have received prescription or not for E script. prescription and prescription will be written for 3 days for Depakote. - Lab Data Result diagrams: 08/18/16 16:50 08/18/16 16:50 Lab Results 08/18/16 08/18/16 Range/Units 16:50 16:50 WBC 9.2 (3.8-10.6) k/uL RBC 4.74 (4.30-5.90) m/uL Hgb 14.0 (13.0-17.5) gm/dL Hct 43.7 (39.0-53.0) % MCV 92.3 (80.0-100.0) fL MCH 29.5 (25.0-35.0) pg MCHC 32.0 (31.0-37.0) g/dL RDW 14.7 (11.5-15.5) % Plt Count 176 (150-450) k/uL Neutrophils % 91 % Lymphocytes % 7 % Monocytes % 2 % Eosinophils % 0 % Basophils % 0 % Neutrophils # 8.4 H (1.3-7.7) k/uL Lymphocytes # 0.6 L (1.0-4.8) k/uL Monocytes # 0.2 (0-1.0) k/uL Eosinophils # 0.0 (0-0.7) k/uL Basophils # 0.0 (0-0.2) k/uL Sodium 145 (137-145) mmol/L Potassium 4.1 (3.5-5.1) mmol/L Chloride 107 (98-107) mmol/L Carbon Dioxide 22 (22-30) mmol/L Anion Gap 16 mmol/L BUN 11 (9-20) mg/dL Creatinine 0.50 L (0.66-1.25) mg/dL Est GFR (MDRD) Af Amer >60 (>60 ml/min/1.73 sqM) Est GFR (MDRD) Non-Af >60 (>60 ml/min/1.73 sqM) Glucose 222 H (74-99) mg/dL Calcium 9.9 (8.4-10.2) mg/dL Magnesium 1.8 (1.6-2.3) mg/dL Total Bilirubin 0.9 (0.2-1.3) mg/dL AST 22 (17-59) U/L ALT 31 (21-72) U/L Alkaline Phosphatase 110 (38-126) U/L Total Protein 7.5 (6.3-8.2) g/dL Albumin 4.5 (3.5-5.0) g/dL - Radiology Data Radiology results: report reviewed (Computed tomography scan of the brain shows small area of white matter ischemia left posterior frontal lobe compared to prior.) Disposition Clinical Impression: New onset seizure Disposition: HOME SELF-CARE Condition: Stable Instructions: New-Onset Seizure in Adults (ED) Additional Instructions: Please follow-up with Dr. Chang and your primary care physician in the beginning of the week. Return for seizures, change in mental status, weakness, worsening symptoms or other concerns. Prescriptions: Divalproex [Depakote] 500 mg PO BID #6 tablet.dr Referrals: Bruce Khan MD [Primary Care Provider] - 1-2 days Nick Chang MD [STAFF PHYSICIAN] - 1-2 days Time of Disposition: 18:36
[2016-08-18 16:40] VITALS: TEMP 98.6
[2016-08-18] MEDS ORDERED: SODIUM CHLORIDE 0.9% 1,000 ML IV STA (16:41)
[2016-08-18] MEDS ORDERED: VALPROATE SODIUM 1,500 MG in SODIUM CHLORIDE 0.9% 50 ML IVPB STA (16:45)
[2016-08-18 17:10] LABS: Basophils % (A) 0 %; CHCM 32.7; Eosinophils % (A) 0 %; HCT 43.7 % (39.0-53.0); HDW 2.98; Luc # (Auto) 0.03; Luc % (Auto) 0; Lymphocytes # (A) 0.6 k/uL (1.0-4.8); Lymphocytes % (A) 7 %; MCH 29.5 pg (25.0-35.0); MCV 92.3 fL (80.0-100.0); Mean Platelet Volume 7.4; Monocytes # (A) 0.2 k/uL (0-1.0); Monocytes % (A) 2 %; Neutrophils # (A) 8.4 k/uL (1.3-7.7); Neutrophils % (A) 91 %; RBC 4.74 m/uL (4.30-5.90); RDW 14.7 % (11.5-15.5); WBC 9.2 k/uL (3.8-10.6); WBC (Perox) 8.73
[2016-08-18 17:24] LABS: ALT 31 U/L (21-72); AST 22 U/L (17-59); Alkaline Phosphatase 110 U/L (38-126); Anion Gap 16 mmol/L; Blood Urea Nitrogen 11 mg/dL (9-20); Calcium 9.9 mg/dL (8.4-10.2); Carbon Dioxide 22 mmol/L (22-30); Chloride 107 mmol/L (98-107); Glucose 222 mg/dL (74-99); Magnesium 1.8 mg/dL (1.6-2.3); Non-African American GFR(MDRD) >60 (>60 ml/min/1.73 sqM); Potassium 4.1 mmol/L (3.5-5.1); Sodium 145 mmol/L (137-145); Total Bilirubin 0.9 mg/dL (0.2-1.3); Total Protein 7.5 g/dL (6.3-8.2)
--- NOTE | 2016-08-18 17:59 | CT ---
EXAMINATION TYPE: CT brain wo con DATE OF EXAM: 08/18/2016 COMPARISON: 07/07/2015 HISTORY: seizures CT DLP: 1183 mGycm Automated exposure control for dose reduction was used. FINDINGS: There is a 1.5 cm area of hypodensity in the white matter left posterior frontal lobe. There is mild cerebral atrophy. There is no midline shift or there is no sign of intracranial hemorrhage. There is no mass effect. The calvarium is intact. IMPRESSION: Small area of white matter ischemia in the left posterior frontal lobe is new compared to old exam. M ild atrophy. No hemorrhage.
[2016-08-18 18:26] VITALS: PULSE 66; RESP 18
[2016-08-18 18:57] VITALS: BP 155/79
== END 2016-08-18 19:03 | disposition home or self-care (01) ==
LOC: EC 15:57
DX: R56.9 Unspecified convulsions (principal); I67.82 Cerebral ischemia; G35 Multiple sclerosis; E11.9 Type 2 diabetes mellitus without complications; M19.90 Unspecified osteoarthritis, unspecified site; F32.9 Major depressive disorder, single episode, unspecified; F41.9 Anxiety disorder, unspecified; G58.9 Mononeuropathy, unspecified; Z79.1 Long term (current) use of non-steroidal anti-inflammatories (NSAID); Z79.84 Long term (current) use of oral hypoglycemic drugs; Z79.899 Other long term (current) drug therapy; Z88.0 Allergy status to penicillin; Z88.8 Allergy status to other drugs, medicaments and biological substances
CPT/HCPCS: 36415; 70450; 80053; 83735; 85025; 93005; 96365; 99285

== ENCOUNTER 2016-10-18 19:25 | Emergency (ER) | payer BC ==
[2016-10-18 19:35] VITALS: RESP 18
[2016-10-18 19:56] LABS: Glucose,Whole Blood 119 mg/dL (75-99)
[2016-10-18] MEDS ORDERED: SODIUM CHLORIDE 0.9% 1,000 ML IV STA (20:11)
--- NOTE | 2016-10-18 20:16 | ED ---
Neuro HPI - General Source: patient, RN notes reviewed Mode of arrival: wheelchair Limitations: no limitations - History of Present Illness Is the patient presenting with stroke symptoms?: No Last Known Well Time: 06:30 <Samuel Gibson - Last Filed: 10/18/16 22:16> <Sam Saenz - Last Filed: 10/18/16 23:13> - General Chief Complaint: Neuro Symptoms/Deficit Stated Complaint: Dizzy, slurred words Time Seen by Provider: 10/18/16 19:50 - History of Present Illness Initial Comments: This is a 51-year-old male with a history of multiple sclerosis as well as seizure disorder who is brought in for evaluation for dizziness over the past 2 days. It seems to occur in the evening he is also had surgery speech not using words correctly. He was talking like he was drunk. Is also been sleeping a lot and feeling tired over last couple days. The symptoms come on it last about an hour than a go away spontaneously. Currently he is asymptomatic he denies any fevers chills nausea vomiting sweats focal weakness. The symptoms are different than his usual MS exacerbation which he usually has headaches tingling muscle weakness. (Samuel Gibson) - Related Data Home Medications: Home Medications Medication Instructions Recorded Confirmed Ibuprofen [Motrin] 800 mg PO TID 05/02/16 10/18/16 Pregabalin [Lyrica] 150 mg PO BID 05/02/16 10/18/16 Testosterone [Androgel 1% Gel Pump] 2 pump TOPICAL Q48H 05/02/16 08/18/16 DULoxetine HCL [Cymbalta] 120 mg PO HS 08/18/16 10/18/16 Empagliflozin/Linagliptin 1 tab PO DAILY 08/18/16 10/18/16 [Glyxambi 25 mg-5 mg Tablet] Fycompa 6mg 6 mg PO DAILY 08/18/16 10/18/16 Daclizumab [Zinbryta] 150 mg SQ Q30D 10/18/16 10/18/16 Divalproex [Depakote] 500 mg PO Q8H 10/18/16 10/18/16 Lacosamide [Vimpat] 100 mg PO BID 10/18/16 10/18/16 tiZANidine [Zanaflex] 4 mg PO Q6HR PRN 10/18/16 10/18/16 Previous Rx's Medication Instructions Recorded metFORMIN HCL [Glucophage] 1,000 mg PO BID #60 tab 04/24/16 Mirtazapine [Remeron] 15 mg PO HS #30 tab 05/07/16 QUEtiapine [SEROquel] 12.5 mg PO TID #90 tab 05/07/16 Allergies/Adverse Reactions: Allergies Allergy/AdvReac Type Severity Reaction Status Date / Time Penicillins AdvReac Severe Swelling Verified 10/18/16 20:02 prochlorperazine AdvReac Severe Hallucinati Verified 10/18/16 20:02 [From Compazine] ons prochlorperazine edisylate AdvReac Severe Hallucinati Verified 10/18/16 20:02 [From Compazine] ons prochlorperazine maleate AdvReac Severe Hallucinati Verified 10/18/16 20:02 [From Compazine] ons bupropion HCl AdvReac Intermediate Nausea & Verified 10/18/16 20:02 [From Wellbutrin] Vomiting gabapentin [From Neurontin] AdvReac Intermediate Nausea & Verified 10/18/16 20: 02 Vomiting amantadine AdvReac Unknown Nausea & Verified 10/18/16 20:02 Vomiting Review of Systems ROS Other: All systems not noted in ROS Statement are negative. <Samuel Gibson - Last Filed: 10/18/16 22:16> ROS Other: All systems not noted in ROS Statement are negative. <Sam Saenz - Last Filed: 10/18/16 23:13> ROS Statement: Those systems with pertinent positive or pertinent negative responses have been documented in the HPI. General Exam Limitations: no limitations General appearance: alert, in no apparent distress Head exam: Present: atraumatic, normocephalic, normal inspection Eye exam: Present: normal appearance, PERRL, EOMI. Absent: scleral icterus, conjunctival injection, periorbital swelling ENT exam: Present: mucous membranes dry Neck exam: Present: normal inspection. Absent: tenderness, meningismus, lymphadenopathy Respiratory exam: Present: normal lung sounds bilaterally. Absent: respiratory distress, wheezes, rales, rhonchi, stridor Cardiovascular Exam: Present: regular rate, normal rhythm, normal heart sounds. Absent: systolic murmur, diastolic murmur, rubs, gallop, clicks GI/Abdominal exam: Present: soft, normal bowel sounds. Absent: distended, tenderness, guarding, rebound, rigid Extremities exam: Present: normal inspection, full ROM, normal capillary refill. Absent: tenderness, pedal edema, joint swelling, calf tenderness Back exam: Present: normal inspection Neurological exam: Present: alert, oriented X3, CN II-XII intact Psychiatric exam: Present: normal affect, normal mood Skin exam: Present: warm, dry, intact, normal color. Absent: rash <ArthurSamuel - Last Filed: 10/18/16 22:16> General appearance: alert, in no apparent distress Head exam: Present: atraumatic, normocephalic, normal inspection Eye exam: Present: normal appearance, PERRL, EOMI. Absent: scleral icterus, conjunctival injection, periorbital swelling ENT exam: Present: normal exam, mucous membranes moist Neck exam: Present: normal inspection. Absent: tenderness, meningismus, lymphadenopathy Respiratory exam: Present: normal lung sounds bilaterally. Absent: respiratory distress, wheezes, rales, rhonchi, stridor Cardiovascular Exam: Present: regular rate, normal rhythm, normal heart sounds. Absent: systolic murmur, diastolic murmur, rubs, gallop, clicks GI/Abdominal exam: Present: soft, normal bowel sounds. Absent: distended, tenderness, guarding, rebound, rigid Extremities exam: Present: normal inspection, full ROM, normal capillary refill. Absent: tenderness, pedal edema, joint swelling, calf tenderness Back exam: Present: normal inspection Neurological exam: Present: alert, oriented X3, CN II-XII intact Psychiatric exam: Present: normal affect, normal mood Skin exam: Present: warm, dry, intact, normal color. Absent: rash <Sam Saenz - Last Filed: 10/18/16 23:13> - General Exam Comments Initial Comments: This is a well-developed well-nourished awake alert oriented 3 male (Samuel Gibson) Stroke MDM - Lab Data Result diagrams: 10/18/16 19:50 10/18/16 19:50 - NIH Stroke Scale 1a. Level of Consciousness: (0) alert 1b. LOC Questions: (0) answers correctly 1c. LOC Commands: (0) performs tasks correctly 2. Best Gaze: (0) normal 3. Visual: (0) no visual loss 4. Facial Palsy: (0) normal symmetrical movement 5a. Motor Arm Left: (0) no drift 5b. Motor Arm Right: (0) no drift 6a. Motor Leg Left: (0) no drift 6b. Motor Leg Right: (0) no drift 7. Limb Ataxia: (0) absent 8. Sensory: (0) normal 9. Best Language: (0) no aphasia 10. Dysarthria: (0) normal 11. Extinction/Inattention: (0) no abnormality - EKG Data -: EKG Interpreted by In EKG shows normal: sinus rhythm (Sinus rhythm rate 65. Interval 174 QRS 106 daily since QTC of 396/411 moderate voltage criteria for LVH no acute ST-T wave changes.) <Samuel Gibson - Last Filed: 10/18/16 22:16> - Lab Data Result diagrams: 10/18/16 19:50 10/18/16 19:50 <Sam Saenz - Last Filed: 10/18/16 23:13> - Lab Data Lab Results 10/18/16 10/18/16 10/18/16 Range/Units 19:50 19:50 19:50 WBC 6.6 (3.8-10.6) k/uL RBC 4.59 (4.30-5.90) m/uL Hgb 13.4 (13.0-17.5) gm/dL Hct 42.1 (39.0-53.0) % MCV 91.6 (80.0-100.0) fL MCH 29.1 (25.0-35.0) pg MCHC 31.8 (31.0-37.0) g/dL RDW 16.2 H (11.5-15.5) % Plt Count 168 (150-450) k/uL Neutrophils % 64 % Lymphocytes % 24 % Monocytes % 8 % Eosinophils % 2 % Basophils % 1 % Neutrophils # 4.2 (1.3-7.7) k/uL Lymphocytes # 1.6 (1.0-4.8) k/uL Monocytes # 0.5 (0-1.0) k/uL Eosinophils # 0.1 (0-0.7) k/uL Basophils # 0.1 (0-0.2) k/uL Anisocytosis Slight PT (9.0-12.0) sec INR (<1.2) APTT (22.0-30.0) sec Sodium 141 (137-145) mmol/L Potassium 4.3 (3.5-5.1) mmol/L Chloride 102 (98-107) mmol/L Carbon Dioxide 26 (22-30) mmol/L Anion Gap 13 mmol/L BUN 16 (9-20) mg/dL Creatinine 0.68 (0.66-1.25) mg/dL Est GFR (MDRD) Af Amer >60 (>60 ml/min/1.73 sqM) Est GFR (MDRD) Non-Af >60 (>60 ml/min/1.73 sqM) Glucose 121 H (74-99) mg/dL POC Glucose (mg/dL) (75-99) mg/dL POC Glu Chemical Laboratory Technician ID Calcium 9.3 (8.4-10.2) mg/dL Magnesium 2.0 (1.6-2.3) mg/dL Total Bilirubin 0.4 (0.2-1.3) mg/dL AST 104 H (17-59) U/L ALT 212 H (21-72) U/L Alkaline Phosphatase 77 (38-126) U/L Total Creatine Kinase 73 (55-170) U/L CK-MB (CK-2) 0.5 (0.0-2.4) ng/mL CK-MB (CK-2) Rel Index 0.7 Troponin I <0.012 (0.000-0.034) ng/mL Total Protein 6.6 (6.3-8.2) g/dL Albumin 3.9 (3.5-5.0) g/dL TSH 4.470 (0.465-4.680) mIU/L Urine Color Urine Appearance (Clear) Urine pH (5.0-8.0) Ur Specific [place] (1.001-1.035) Urine Protein (Negative) Urine Glucose (UA) (Negative) Urine Ketones (Negative) Urine Blood (Negative) Urine Nitrite (Negative) Urine Bilirubin (Negative) Urine Urobilinogen (<2.0) mg/dL Ur Leukocyte Esterase (Negative) Urine RBC (0-5) /hpf Urine WBC (0-5) /hpf 10/18/16 10/18/16 10/18/16 Range/Units 19:50 19:54 21:36 WBC (3.8-10.6) k/uL RBC (4.30-5.90) m/uL Hgb (13.0-17.5) gm/dL Hct (39.0-53.0) % MCV (80.0-100.0) fL MCH (25.0-35.0) pg MCHC (31.0-37.0) g/dL RDW (11.5-15.5) % Plt Count (150-450) k/uL Neutrophils % % Lymphocytes % % Monocytes % % Eosinophils % % Basophils % % Neutrophils # (1.3-7.7) k/uL Lymphocytes # (1.0-4.8) k/uL Monocytes # (0-1.0) k/uL Eosinophils # (0-0.7) k/uL Basophils # (0-0.2) k/uL Anisocytosis PT 11.0 (9.0-12.0) sec INR 1.1 (<1.2) APTT 21.3 L (22.0-30.0) sec Sodium (137-145) mmol/L Potassium (3.5-5.1) mmol/L Chloride (98-107) mmol/L Carbon Dioxide (22-30) mmol/L Anion Gap mmol/L BUN (9-20) mg/dL Creatinine (0.66-1.25) mg/dL Est GFR (MDRD) Af Amer (>60 ml/min/1.73 sqM) Est GFR (MDRD) Non-Af (>60 ml/min/1.73 sqM) Glucose (74-99) mg/dL POC Glucose (mg/dL) 119 H (75-99) mg/dL POC Glu Chemical Laboratory Technician ID Daphne Louis A Calcium (8.4-10.2) mg/dL Magnesium (1.6-2.3) mg/dL Total Bilirubin (0.2-1.3) mg/dL AST (17-59) U/L ALT (21-72) U/L Alkaline Phosphatase (38-126) U/L Total Creatine Kinase (55-170) U/L CK-MB (CK-2) (0.0-2.4) ng/mL CK-MB (CK-2) Rel Index Troponin I (0.000-0.034) ng/mL Total Protein (6.3-8.2) g/dL Albumin (3.5-5.0) g/dL TSH (0.465-4.680) mIU/L Urine Color Light Yellow Urine Appearance Clear (Clear) Urine pH 6.0 (5.0-8.0) Ur Specific [place] 1.015 (1.001-1.035) Urine Protein Negative (Negative) Urine Glucose (UA) 4+ H (Negative) Urine Ketones Negative (Negative) Urine Blood Small H (Negative) Urine Nitrite Negative (Negative) Urine Bilirubin Negative (Negative) Urine Urobilinogen <2.0 (<2.0) mg/dL Ur Leukocyte Esterase Negative (Negative) Urine RBC 5 (0-5) /hpf Urine WBC 2 (0-5) /hpf - Medical Decision Making 11 male the ER at this point for evaluation regarding illogical symptoms earlier today, symptoms on and off for the past week or so. Patient observed for multiple neurological issues including MS and seizures. Chronic pain issues. Patient would like to follow-up with x-ray on the outpatient basis. (Sam Saenz) Past Medical History Past Medical History: Diabetes Mellitus, GERD/Reflux, Musculoskeletal Disorder, Neurologic Disorder, Osteoarthritis (OA), Seizure Disorder Additional Past Medical History / Comment(s): MS, active lesions in brain History of Any Multi-Drug Resistant Organisms: None Reported Past Surgical History: Back Surgery Additional Past Surgical History / Comment(s): c spine, lumbar Past Anesthesia/Blood Transfusion Reactions: No Reported Reaction Past Psychological History: Anxiety, Depression Smoking Status: Never smoker Past Alcohol Use History: None Reported Past Drug Use History: None Reported - Past Family History Mother Family Medical History: COPD, Hypertension <Samuel Gibson - Last Filed: 10/18/16 22:16> Course <Samuel Gibson - Last Filed: 10/18/16 22:16> <Sam Seanz - Last Filed: 10/18/16 23:13> Vital Signs 10/18/16 10/18/16 10/18/16 19:31 20:42 21:49 Temperature 97.6 F Pulse Rate 69 66 62 Respiratory 18 18 18 Rate Blood Pressure 136/69 119/61 119/74 O2 Sat by Pulse 98 94 L 96 Oximetry 10/18/16 22:48 Temperature Pulse Rate 66 Respiratory 18 Rate Blood Pressure 121/62 O2 Sat by Pulse 95 Oximetry 4 (Sam Saenz) - Reevaluation(s) Reevaluation #1: 10/18/16 22:15 The patient will be endorsed to Dr Saenz at our shift change (Samuel Gibson) Reevaluation #2: 10/18/16 22:16 The patient will be endorsed to Dr Saenz at shift change. (Samuel Gibson) Disposition <Samuel Gibson - Last Filed: 10/18/16 22:16> <Sam Saenz - Last Filed: 10/18/16 23:13> Clinical Impression: Multiple sclerosis, Transient cerebral ischemia Disposition: HOME SELF-CARE Condition: Good Instructions: Transient Ischemic Attack (ED) Referrals: Bruce Khan MD [Primary Care Provider] - 1-2 days
[2016-10-18 20:54] LABS: Anisocytosis Slight; Basophils # (A) 0.1 k/uL (0-0.2); Basophils % (A) 1 %; Eosinophils # (A) 0.1 k/uL (0-0.7); Eosinophils % (A) 2 %; HCT 42.1 % (39.0-53.0); HDW 2.65; HGB 13.4 gm/dL (13.0-17.5); Luc # (Auto) 0.11; Luc % (Auto) 2; Lymphocytes # (A) 1.6 k/uL (1.0-4.8); Lymphocytes % (A) 24 %; MCH 29.1 pg (25.0-35.0); MCHC 31.8 g/dL (31.0-37.0); MCV 91.6 fL (80.0-100.0); Mean Platelet Volume 7.9; Monocytes # (A) 0.5 k/uL (0-1.0); Monocytes % (A) 8 %; Neutrophils # (A) 4.2 k/uL (1.3-7.7); Neutrophils % (A) 64 %; RBC 4.59 m/uL (4.30-5.90); RDW 16.2 % (11.5-15.5); WBC 6.6 k/uL (3.8-10.6); WBC (Perox) 6.64
[2016-10-18 21:07] LABS: ALT 212 U/L (21-72); AST 104 U/L (17-59); Alkaline Phosphatase 77 U/L (38-126); Anion Gap 13 mmol/L; Blood Urea Nitrogen 16 mg/dL (9-20); Calcium 9.3 mg/dL (8.4-10.2); Carbon Dioxide 26 mmol/L (22-30); Chloride 102 mmol/L (98-107); Glucose 121 mg/dL (74-99); Non-African American GFR(MDRD) >60 (>60 ml/min/1.73 sqM); Potassium 4.3 mmol/L (3.5-5.1); Sodium 141 mmol/L (137-145); Total Bilirubin 0.4 mg/dL (0.2-1.3); Total Protein 6.6 g/dL (6.3-8.2)
[2016-10-18 21:09] LABS: INR 1.1 (<1.2); Partial Thromboplastin Time 21.3 sec (22.0-30.0)
--- NOTE | 2016-10-18 21:10 | CT ---
EXAMINATION TYPE: CT brain wo con DATE OF EXAM: 10/18/2016 COMPARISON: CT brain August 18, 2016 HISTORY: Dizziness and slurred speech in evening routinely x couple weeks. CT DLP: 1150.00 mGycm. Automated Exposure Control for Dose Reduction was Utilized. TECHNIQUE: CT scan of the head is performed without contrast. FINDINGS: There is no acute intracranial hemorrhage or midline shift identified. The ventricles an d sulci are within normal limits in size. Some scattered vague areas of low-attenuation in the white matter are redemonstrated, for reference left frontal level on axial images 31 and 28 and right front al periventricular on coronal image 32. The globes are intact and the visualized sinuses are clear. IMPRESSION: No acute intracranial hemorrhage, or midline shift is seen. Mild to moderate nonspecific white matter changes redemonstrated not significantly changed from prior exam. Given patient's sympt oms besides chronic small vessel ischemic change, other etiologies such as demyelinating disease need s to BE considered as findings are out of proportion to what is expected for patient's age. Neurology follow-up advised.
[2016-10-18 21:13] LABS: Creatine Kinase 73 U/L (55-170)
[2016-10-18 21:26] LABS: Creatine Kinase MB 0.5 ng/mL (0.0-2.4); Troponin I <0.012 ng/mL (0.000-0.034)
--- NOTE | 2016-10-18 21:26 | XR ---
EXAMINATION TYPE: XR chest 2V DATE OF EXAM: 10/18/2016 COMPARISON: Chest x-ray May 05, 2014 HISTORY: Altered mental status per order. Dizziness with slurred speech. TECHNIQUE: Frontal and lateral views of the chest are obtained. FINDINGS: There is no focal air space opacity, pleural effusion, or pneumothorax seen. The cardiac silhouette size is within normal limits. Spinal stimulator device in the mid to lower thoracic spinal canal is now present. IMPRESSION: No acute cardiopulmonary process.
[2016-10-18 22:00] LABS: Appearance,Urine Clear (Clear); Bilirubin,Urine Negative (Negative); Glucose,Urine (UA) 4+ (Negative); Ketones,Urine Negative (Negative); Leukocyte Esterase,Urine Negative (Negative); Nitrite,Urine Negative (Negative); Particle Count 174; Protein,Urine Negative (Negative); RBC,Urine 5 /hpf (0-5); Specific Gravity,Urine 1.015 (1.001-1.035); UA Billing (MACRO vs. MICRO) MICRO; Urobilinogen,Urine <2.0 mg/dL (<2.0); WBC,Urine 2 /hpf (0-5)
[2016-10-18] MEDS ORDERED: ASPIRIN 81 MG CHEW PO STA (23:11)
[2016-10-18 23:25] VITALS: BP 146/98; PULSE 72; TEMP 97.8
== END 2016-10-18 23:23 | disposition home or self-care (01) ==
LOC: EC 19:25
DX: G35 Multiple sclerosis (principal); G45.9 Transient cerebral ischemic attack, unspecified; M19.90 Unspecified osteoarthritis, unspecified site; G40.909 Epilepsy, unspecified, not intractable, without status epilepticus; E11.9 Type 2 diabetes mellitus without complications; F32.9 Major depressive disorder, single episode, unspecified; F41.9 Anxiety disorder, unspecified; Z88.0 Allergy status to penicillin; Z88.8 Allergy status to other drugs, medicaments and biological substances; Z79.1 Long term (current) use of non-steroidal anti-inflammatories (NSAID); Z79.84 Long term (current) use of oral hypoglycemic drugs; Z79.899 Other long term (current) drug therapy
CPT/HCPCS: 36415; 70450; 71020; 80053; 81001; 82550; 82553; 83735; 84443; 84484; 85025; 85610; 85730; 93005; 96360; 96361; 99284

== ENCOUNTER 2017-03-18 21:13 | Inpatient (IN) | payer BC, MEDICARE ==
[2017-03-18] MEDS ORDERED: IPRATROPIUM-ALBUTEROL 3 ML NEB INHALATION STA (22:13)
[2017-03-18] MEDS ORDERED: SODIUM CHLORIDE 0.9% 1,000 ML IV STA ×2 (22:13)
[2017-03-18] MEDS ORDERED: methylPREDNISolone SOD SUCCI 125 MG/2 ML VIAL IV STA (22:13)
[2017-03-18] MEDS ORDERED: SODIUM CHLORIDE 0.9% 2,000 ML IV ONE (22:17)
[2017-03-18] MEDS ORDERED: HYDROcodone/APAP 5-325MG 1 EACH TAB PO STA (22:19)
--- NOTE | 2017-03-18 22:25 | ED ---
General Adult HPI - General Chief complaint: Upper Respiratory Infection Stated complaint: Cough/SOB Time Seen by Provider: 03/18/17 21:28 Source: patient Mode of arrival: wheelchair Limitations: no limitations - History of Present Illness Initial comments: Patient is a 51-year-old male who presents with a chief complaint of shortness of breath, cough, fever. The patient has a significant medical history of MS. Patient follows with Dr. Chang. The patient's symptoms started about 3 days ago with cough, today he is increasingly weak with a fever. His fever was as high as 103 at home. They cannot identify any inciting factors. There are no aggravating or alleviating factors. Patient is most concerned about his weakness and shortness of breath. Patient states that he is unable to make bathroom currently, he feels that his legs and arms are very weak. The patient endorses nausea however he has not vomited. He endorses constipation but does not have diarrhea. - Related Data Home Medications Medication Instructions Recorded Confirmed Ibuprofen [Motrin] 800 mg PO TID 05/02/16 03/18/17 Pregabalin [Lyrica] 150 mg PO BID 05/02/16 03/18/17 DULoxetine HCL [Cymbalta] 60 mg PO DAILY 08/18/16 03/18/17 Empagliflozin/Linagliptin 1 tab PO DAILY 08/18/16 03/18/17 [Glyxambi 25 mg-5 mg Tablet] tiZANidine [Zanaflex] 4 mg PO Q6HR PRN 10/18/16 03/18/17 Diphenhydra/Phenyleph/Acetamin 1 packet PO Q4H PRN 03/18/17 03/18/17 [Theraflu Severe Cold & Cough] Divalproex ER [Depakote ER] 500 mg PO Q8H 03/18/17 03/18/17 Lacosamide [Vimpat] 150 mg PO BID 03/18/17 03/18/17 Mirtazapine [Remeron] 15 mg PO BID 03/18/17 03/18/17 Testosterone [Androgel 1.62% Gel 2 applic TOPICAL Q48H 03/18/17 03/18/17 Pump] Previous Rx's Medication Instructions Recorded metFORMIN HCL [Glucophage] 1,000 mg PO BID #60 tab 04/24/16 Allergies Allergy/AdvReac Type Severity Reaction Status Date / Time Penicillins AdvReac Severe Swelling Verified 03/18/17 22:22 prochlorperazine AdvReac Severe Hallucinati Verified 03/18/17 22:22 [From Compazine] ons prochlorperazine edisylate AdvReac Severe Hallucinati Verified 03/18/17 22:22 [From Compazine] ons prochlorperazine maleate AdvReac Severe Hallucinati Verified 03/18/17 22:22 [From Compazine] ons bupropion HCl AdvReac Intermediate Nausea & Verified 03/18/17 22:22 [From Wellbutrin] Vomiting gabapentin [From Neurontin] AdvReac Intermediate Nausea & Verified 03/18/17 22: 22 Vomiting amantadine AdvReac Unknown Nausea & Verified 03/18/17 22:22 Vomiting Review of Systems ROS Statement: Those systems with pertinent positive or pertinent negative responses have been documented in the HPI. ROS Other: All systems not noted in ROS Statement are negative. Constitutional: Reports: fever, chills Respiratory: Reports: cough Cardiovascular: Reports: chest pain Gastrointestinal: Reports: nausea Neurological: Reports: headache, weakness Past Medical History Past Medical History: Diabetes Mellitus, GERD/Reflux, Musculoskeletal Disorder, Neurologic Disorder, Osteoarthritis (OA), Seizure Disorder Additional Past Medical History / Comment(s): MS, active lesions in brain. History of Any Multi-Drug Resistant Organisms: None Reported Past Surgical History: Back Surgery Additional Past Surgical History / Comment(s): c spine, lumbar. spinal cord stimulator. VNS unit left chest. Past Anesthesia/Blood Transfusion Reactions: No Reported Reaction Past Psychological History: Anxiety, Depression Smoking Status: Never smoker Past Alcohol Use History: None Reported Past Drug Use History: None Reported - Past Family History Mother Family Medical History: COPD, Hypertension General Exam Limitations: no limitations General appearance: alert, in distress (Patient is in mild respiratory distress) Head exam: Present: atraumatic, normocephalic Eye exam: Present: normal appearance ENT exam: Present: mucous membranes moist Neck exam: Present: normal inspection Respiratory exam: Present: respiratory distress (Mild), wheezes, rhonchi Cardiovascular Exam: Present: normal rhythm, tachycardia GI/Abdominal exam: Present: soft. Absent: distended, tenderness Extremities exam: Present: normal inspection Back exam: Present: CVA tenderness (L). Absent: CVA tenderness (R) Neurological exam: Present: alert, oriented X3 Psychiatric exam: Present: normal affect, normal mood Skin exam: Present: warm, dry, intact Course Vital Signs 03/18/17 03/18/17 03/18/17 21:19 22:57 23:30 Temperature 103.2 F H Pulse Rate 100 100 92 Respiratory 24 Rate Blood Pressure 145/63 O2 Sat by Pulse 94 L Oximetry 03/18/17 23:54 Temperature Pulse Rate 94 Respiratory 20 Rate Blood Pressure 95/55 O2 Sat by Pulse 90 L Oximetry Medical Decision Making - Medical Decision Making Patient presents with a chief complaint of cough, fever, and weakness. Patient has a history of MS. On exam, patient has 4 out of 5 strength in the upper and lower extremities. Patient in mild respiratory distress, and was placed on 2 L of oxygen for comfort. Patient is mildly tachycardic at just over 100 bpm and febrile at 103.2. Sepsis bundle was initiated. Patient was given Solu-Medrol as he is thought to be an MS exacerbation. EKG performed at 2225 shows normal sinus rhythm with a rate of 91 bpm. EKG is otherwise nonspecific. 12:26 AM Lab evaluation this patient shows an elevated lactic acid at 3.1. Labs are otherwise unremarkable. Patient white count of 6.1. After breathing treatment , the patient states that he is breathing much easier. Review of the chest x- ray shows bilateral pneumonia. Patient was started on antibiotics for sepsis. I discussed this case with the patient's primary care doctor, Dr. Khan who accepts admission of this patient for MS exacerbation, sepsis, acute community acquired pneumonia. At this time, patient's vital signs have improved, he states he is feeling much better. The patient is breathing easily this time. - Lab Data Result diagrams: 03/18/17 21:45 03/18/17 21:45 Lab Results 03/18/17 03/18/17 03/18/17 Range/Units 21:45 21:45 21:45 WBC 6.4 (3.8-10.6) k/uL RBC 4.18 L (4.30-5.90) m/uL Hgb 12.4 L (13.0-17.5) gm/dL Hct 39.9 (39.0-53.0) % MCV 95.6 (80.0-100.0) fL MCH 29.7 (25.0-35.0) pg MCHC 31.0 (31.0-37.0) g/dL RDW 14.6 (11.5-15.5) % Plt Count 228 (150-450) k/uL Neutrophils % (Manual) 67 % Band Neutrophils % 10 % Lymphocytes % (Manual) 11 % Monocytes % (Manual) 9 % Metamyelocytes % 3 % Neutrophils # (Manual) 4.90 (1.3-7.7) k/uL Lymphocytes # (Manual) 0.70 L (1.0-4.8) k/uL Monocytes # (Manual) 0.58 (0-1.0) k/uL Metamyelocytes # (Man) 0.19 H (0) k/uL Nucleated RBCs 0 (0-0) /100 WBC Manual Slide Review Performed Hypochromasia Slight PT (9.0-12.0) sec INR (<1.2) Sodium 147 H (137-145) mmol/L Potassium 4.0 (3.5-5.1) mmol/L Chloride 107 (98-107) mmol/L Carbon Dioxide 25 (22-30) mmol/L Anion Gap 15 mmol/L BUN 18 (9-20) mg/dL Creatinine 1.00 (0.66-1.25) mg/dL Est GFR (MDRD) Af Amer >60 (>60 ml/min/1.73 sqM) Est GFR (MDRD) Non-Af >60 (>60 ml/min/1.73 sqM) Glucose 262 H (74-99) mg/dL Plasma Lactic Acid Ermias (0.7-2.0) mmol/L Calcium 8.7 (8.4-10.2) mg/dL Magnesium 1.8 (1.6-2.3) mg/dL Total Bilirubin 0.3 (0.2-1.3) mg/dL AST 40 (17-59) U/L ALT 31 (21-72) U/L Alkaline Phosphatase 87 (38-126) U/L Troponin I (0.000-0.034) ng/mL NT-Pro-B Natriuret Pep 465 pg/mL Total Protein 6.2 L (6.3-8.2) g/dL Albumin 3.2 L (3.5-5.0) g/dL Influenza Type A RNA (Not Detectd) Influenza Type B (PCR) (Not Detectd) 03/18/17 03/18/17 03/18/17 Range/Units 21:45 21:45 21:45 WBC (3.8-10.6) k/uL RBC (4.30-5.90) m/uL Hgb (13.0-17.5) gm/dL Hct (39.0-53.0) % MCV (80.0-100.0) fL MCH (25.0-35.0) pg MCHC (31.0-37.0) g/dL RDW (11.5-15.5) % Plt Count (150-450) k/uL Neutrophils % (Manual) % Band Neutrophils % % Lymphocytes % (Manual) % Monocytes % (Manual) % Metamyelocytes % % Neutrophils # (Manual) (1.3-7.7) k/uL Lymphocytes # (Manual) (1.0-4.8) k/uL Monocytes # (Manual) (0-1.0) k/uL Metamyelocytes # (Man) (0) k/uL Nucleated RBCs (0-0) /100 WBC Manual Slide Review Hypochromasia PT 11.0 (9.0-12.0) sec INR 1.1 (<1.2) Sodium (137-145) mmol/L Potassium (3.5-5.1) mmol/L Chloride (98-107) mmol/L Carbon Dioxide (22-30) mmol/L Anion Gap mmol/L BUN (9-20) mg/dL Creatinine (0.66-1.25) mg/dL Est GFR (MDRD) Af Amer (>60 ml/min/1.73 sqM) Est GFR (MDRD) Non-Af (>60 ml/min/1.73 sqM) Glucose (74-99) mg/dL Plasma Lactic Acid Ermias 3.1 H* (0.7-2.0) mmol/L Calcium (8.4-10.2) mg/dL Magnesium (1.6-2.3) mg/dL Total Bilirubin (0.2-1.3) mg/dL AST (17-59) U/L ALT (21-72) U/L Alkaline Phosphatase (38-126) U/L Troponin I <0.012 (0.000-0.034) ng/mL NT-Pro-B Natriuret Pep pg/mL Total Protein (6.3-8.2) g/dL Albumin (3.5-5.0) g/dL Influenza Type A RNA (Not Detectd) Influenza Type B (PCR) (Not Detectd) 03/18/17 Range/Units 21:45 WBC (3.8-10.6) k/uL RBC (4.30-5.90) m/uL Hgb (13.0-17.5) gm/dL Hct (39.0-53.0) % MCV (80.0-100.0) fL MCH (25.0-35.0) pg MCHC (31.0-37.0) g/dL RDW (11.5-15.5) % Plt Count (150-450) k/uL Neutrophils % (Manual) % Band Neutrophils % % Lymphocytes % (Manual) % Monocytes % (Manual) % Metamyelocytes % % Neutrophils # (Manual) (1.3-7.7) k/uL Lymphocytes # (Manual) (1.0-4.8) k/uL Monocytes # (Manual) (0-1.0) k/uL Metamyelocytes # (Man) (0) k/uL Nucleated RBCs (0-0) /100 WBC Manual Slide Review Hypochromasia PT (9.0-12.0) sec INR (<1.2) Sodium (137-145) mmol/L Potassium (3.5-5.1) mmol/L Chloride (98-107) mmol/L Carbon Dioxide (22-30) mmol/L Anion Gap mmol/L BUN (9-20) mg/dL Creatinine (0.66-1.25) mg/dL Est GFR (MDRD) Af Amer (>60 ml/min/1.73 sqM) Est GFR (MDRD) Non-Af (>60 ml/min/1.73 sqM) Glucose (74-99) mg/dL Plasma Lactic Acid Ermias (0.7-2.0) mmol/L Calcium (8.4-10.2) mg/dL Magnesium (1.6-2.3) mg/dL Total Bilirubin (0.2-1.3) mg/dL AST (17-59) U/L ALT (21-72) U/L Alkaline Phosphatase (38-126) U/L Troponin I (0.000-0.034) ng/mL NT-Pro-B Natriuret Pep pg/mL Total Protein (6.3-8.2) g/dL Albumin (3.5-5.0) g/dL Influenza Type A RNA Not Detected (Not Detectd) Influenza Type B (PCR) Not Detected (Not Detectd) Disposition Clinical Impression: Community acquired pneumonia, Sepsis, Respiratory distress determined by examination, Exacerbation of multiple sclerosis Disposition: ADMITTED IP TO THIS [facility] Condition: Good Referrals: Bruce Khan MD [Primary Care Provider] - 1-2 days Decision to Admit Reason: Admit from EC - Out of Hospital Transfer - Req. Specs Out of Hospital Transfer - Requested Specifics: Telemetry Unit
[2017-03-18 22:33] LABS: HCT 39.9 % (39.0-53.0); HGB 12.4 gm/dL (13.0-17.5); Hypochromasia Slight; MCH 29.7 pg (25.0-35.0); MCV 95.6 fL (80.0-100.0); Mean Platelet Volume 7.2; Platelet Count 228 k/uL (150-450); RBC 4.18 m/uL (4.30-5.90); RDW 14.6 % (11.5-15.5); WBC 6.4 k/uL (3.8-10.6)
[2017-03-18 22:42] LABS: ALT 31 U/L (21-72); AST 40 U/L (17-59); Albumin 3.2 g/dL (3.5-5.0); Alkaline Phosphatase 87 U/L (38-126); Anion Gap 15 mmol/L; Blood Urea Nitrogen 18 mg/dL (9-20); Calcium 8.7 mg/dL (8.4-10.2); Carbon Dioxide 25 mmol/L (22-30); Chloride 107 mmol/L (98-107); Glucose 262 mg/dL (74-99); Magnesium 1.8 mg/dL (1.6-2.3); Sodium 147 mmol/L (137-145); Total Bilirubin 0.3 mg/dL (0.2-1.3); Total Protein 6.2 g/dL (6.3-8.2)
[2017-03-18 22:46] LABS: INR 1.1 (<1.2)
--- NOTE | 2017-03-18 23:02 | XR ---
EXAMINATION TYPE: XR chest 2V DATE OF EXAM: 03/18/2017 COMPARISON: 10/18/2016 HISTORY: Short of breath TECHNIQUE: Frontal and lateral views of the chest are obtained. FINDINGS: There is patchy bilateral lower lobe pulmonary consolidation.. There is implanted device o jaime the left chest. There is neurostimulator in the mid thoracic spine. There is consolidation at the posterior lung bases. IMPRESSION: There is new bilateral lower lobe pneumonic consolidation compared to last exam and cons istent with bronchopneumonia. No gross heart failure.
[2017-03-18 23:18] LABS: Band Neutrophils % 10 %; Metamyelocytes # (M) 0.19 k/uL (0); Metamyelocytes % 3 %; Monocytes # (M) 0.58 k/uL (0-1.0); Neutrophils % (M) 67 %; Nucleated Red Blood Cells 0 /100 WBC (0-0); Total Cells Counted 100
[2017-03-19] MEDS ORDERED: NALOXONE 0.4 MG/ML 1 ML VIAL IV PRN (00:23)
[2017-03-19] MEDS ORDERED: DIAZEPAM 5 MG/ML 2 ML INJ IVP PRN (02:09)
[2017-03-19] MEDS ORDERED: tiZANidine 4 MG TAB PO PRN (02:16)
[2017-03-19] MEDS: HYDROcodone/APAP 5-325MG 1 EACH TAB PO PRN ×5 (02:25→19:49)
[2017-03-19] MEDS ORDERED: DIVALPROEX ER 500 MG TAB.ER.24H PO SCH (02:30)
[2017-03-19 07:09] LABS: Glucose,Whole Blood 294 mg/dL (75-99)
[2017-03-19] MEDS: INSULIN ASPART 100 UNIT/ML 1 ML 10 ML VIAL SQ SCH ×4 (08:19→20:31)
[2017-03-19] MEDS: metFORMIN 500 MG TAB PO SCH ×2 (08:19→20:30)
[2017-03-19] MEDS: MIRTAZAPINE 15 MG TAB PO SCH ×2 (08:20→20:30)
[2017-03-19] MEDS: DIVALPROEX ER 500 MG TAB.ER.24H PO SCH ×3 (08:20→23:44)
[2017-03-19] MEDS: DULoxetine HCL 60 MG CAPSULE.DR PO SCH (08:20)
[2017-03-19] MEDS ORDERED: LINAGLIPTIN PO SCH (09:00)
[2017-03-19] MEDS ORDERED: EMPAGLIFLOZIN PO SCH (09:00)
[2017-03-19] MEDS: LEVOFLOXACIN 500MG-D5W PMX 500 MG in DEXTROSE/WATER 1 100ML.BAG IVPB SCH (09:47)
[2017-03-19] MEDS: PREGABALIN 75 MG CAP PO SCH ×2 (09:49→20:30)
[2017-03-19] MEDS: LACOSAMIDE 150 MG TABLET PO SCH ×2 (09:50→20:30)
[2017-03-19] MEDS: AZITHROMYCIN 500 MG in SODIUM CHLORIDE 0.9% 250 ML IVPB SCH (11:28)
[2017-03-19 11:34] LABS: Glucose,Whole Blood 227 mg/dL (75-99)
--- NOTE | 2017-03-19 12:40 | HP ---
HISTORY AND PHYSICAL CHIEF COMPLAINT: A 51-year-old white male complaining of shortness of breath, cough, fever and MS exacerbation, generalized weakness, high fever 103, more weak, shortness of breath, unable to move arms and legs with any significant strength. He has some nausea, constipation. No diarrhea. HOME MEDICATIONS INCLUDE: 1. Motrin. 2. Lyrica. 3. Cymbalta. 4. Glyxambi for diabetes. 5. Zanaflex for muscle relaxer. 6. Depakote ER. 7. Vimpat. 8. Remeron. 9. AndroGel. ALLERGIES: PENICILLINS, COMPAZINE, WELLBUTRIN, NEURONTIN. 14 POINT REVIEW OF SYSTEMS: Negative except for as mentioned in HPI. PAST MEDICAL HISTORY: Diabetes mellitus, GERD, musculoskeletal disorder, MS, osteoarthritis, seizure disorder. SURGERIES: Back surgery, C-spine, lumbar spine, spinal cord stimulator VNS, left chest, anxiety, depression. PAST MEDICAL HISTORY: Mother with COPD and hypertension. PHYSICAL EXAM: Temp 103.2 T-max, pulse rate 90 to 100, blood pressure 145/63, respiratory rate 20 to 24. CARDIOVASCULAR: S1, S2. LUNGS: Scattered wheeze. BACK: Show CVA tenderness on the left. Moderate diffuse abdominal tenderness. NEUROLOGIC: Alert, orient x3. PSYCH: Fair mood and affect. LUNGS: Transmitted upper airway sounds. CARDIOVASCULAR: Normal rhythm. ENT: External ear canals within normal limits. No pharyngeal erythema. ASSESSMENT: 1. Acute MS exacerbation. 2. Acute tracheobronchitis. 3. Acute community-acquired pneumonia, sepsis secondary to community-acquired pneumonia. 4. Diabetes mellitus. 5. Multiple sclerosis. 6. Elevated plasma lactic acidosis secondary to sepsis. 7. Dehydration. PLAN: Influenza A and B are negative. Plan IV antibiotics are ordered. Accu-Chek protocol. Will do CT of the chest without contrast today. There is a bilateral lower lobe pneumonic consolidation. Consult [employer]. MMODL / IJN: [id number] /
[2017-03-19] MEDS: GLYXAMBI PO SCH (14:16)
[2017-03-19] MEDS ORDERED: VALPROATE SODIUM 700 MG in SODIUM CHLORIDE 0.9% 50 ML IVPB STA ×2 (16:48→18:14)
[2017-03-19 16:49] LABS: Glucose,Whole Blood 128 mg/dL (75-99)
--- NOTE | 2017-03-19 18:27 | P.CNNES ---
History of Present Illness Consult date: 03/19/17 Reason for Consult: Patient has history of seizure disorder and multiple sclerosis. History of Present Illness: This patient is a 51-year-old right-handed white male who was brought into the emergency room with symptoms of fever and sepsis. Patient was just not feeling well at home for the past several days. He was complaining of chest pain and shortness of breath. He was brought into the emergency room for further evaluation. He was seen in the ER by Dr. Laurent. He underwent a chest x-ray which revealed evidence of bilateral pneumonia and community-acquired pneumonia. He was started on antibiotics and admitted to Hospital. Patient has a known history of seizure disorder and multiple sclerosis. He underwent placement of a VNS stimulator for treatment of his seizures and November of last year. Apparently this has been working well. On Sunday of this past week however he had some breakthrough seizure. He is still taking a combination of Depakote and Vimpat for seizure management. His Depakote level today was subtherapeutic at 44.1. We have given him an IV bolus of IV Depacon today 700 mg and we will recheck his Depakote level in the morning. Patient also has a known history of multiple sclerosis. He has been started on IV infusion therapy therapy for his MS with Ocrevus. He had one injection and the second is on hold as he developed this pneumonia and fever. Since admission to the hospital he has noted significant improvement in his breathing as well as his muscle strength. Initially there was concern whether he had some MS exacerbation. This is felt more secondary to his history of the pneumonia findings on admission today. The patient otherwise seems to be doing fairly well. He is now been admitted and neurology has been consulted for further evaluation and recommendations. Review of Systems Constitutional: Denies chills, Denies fever Eyes: denies blurred vision, denies pain Ears, nose, mouth and throat: Denies headache, Denies sore throat Cardiovascular: Denies chest pain, Denies shortness of breath Respiratory: Denies cough Gastrointestinal: Denies abdominal pain, Denies diarrhea, Denies nausea, Denies vomiting Musculoskeletal: Denies myalgias Integumentary: Denies pruritus, Denies rash Neurological: Reports gait dysfunction, Reports paresthesias, Denies numbness, Denies weakness Psychiatric: Denies anxiety, Denies depression Endocrine: Denies fatigue, Denies weight change Past Medical History Past Medical History: Diabetes Mellitus, GERD/Reflux, Musculoskeletal Disorder, Neurologic Disorder, Osteoarthritis (OA), Seizure Disorder Additional Past Medical History / Comment(s): MS, active lesions in brain. History of Any Multi-Drug Resistant Organisms: None Reported Past Surgical History: Back Surgery Additional Past Surgical History / Comment(s): c spine, lumbar. spinal cord stimulator. VNS unit left chest. Past Anesthesia/Blood Transfusion Reactions: No Reported Reaction Past Psychological History: Anxiety, Depression Additional Psychological History / Comment(s): , lives in the family home with his . 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 No experience. No tobacco or alcohol use. No animal exposures. Smoking Status: Never smoker Past Alcohol Use History: None Reported Past Drug Use History: None Reported - Past Family History Mother Family Medical History: COPD, Hypertension Medications and Allergies Home Medications Medication Instructions Recorded Confirmed Type metFORMIN HCL [Glucophage] 1,000 mg PO BID #60 tab 04/24/16 03/18/17 Rx Ibuprofen [Motrin] 800 mg PO TID 05/02/16 03/18/17 History Pregabalin [Lyrica] 150 mg PO BID 05/02/16 03/18/17 History DULoxetine HCL [Cymbalta] 60 mg PO DAILY 08/18/16 03/18/17 History Empagliflozin/Linagliptin 1 tab PO DAILY 08/18/16 03/18/17 History [Glyxambi 25 mg-5 mg Tablet] tiZANidine [Zanaflex] 4 mg PO Q6HR PRN 10/18/16 03/18/17 History Diphenhydra/Phenyleph/Acetamin 1 packet PO Q4H PRN 03/18/17 03/18/17 History [Theraflu Severe Cold & Cough] Divalproex ER [Depakote ER] 500 mg PO Q8H 03/18/17 03/18/17 History Lacosamide [Vimpat] 150 mg PO BID 03/18/17 03/18/17 History Mirtazapine [Remeron] 15 mg PO BID 03/18/17 03/18/17 History Testosterone [Androgel 1.62% Gel 2 applic TOPICAL Q48H 03/18/17 03/18/17 History Pump] Allergies Allergy/AdvReac Type Severity Reaction Status Date / Time Penicillins AdvReac Severe Swelling Verified 03/18/17 22:22 prochlorperazine AdvReac Severe Hallucinati Verified 03/18/17 22:22 [From Compazine] ons prochlorperazine edisylate AdvReac Severe Hallucinati Verified 03/18/17 22:22 [From Compazine] ons prochlorperazine maleate AdvReac Severe Hallucinati Verified 03/18/17 22:22 [From Compazine] ons bupropion HCl AdvReac Intermediate Nausea & Verified 03/18/17 22:22 [From Wellbutrin] Vomiting gabapentin [From Neurontin] AdvReac Intermediate Nausea & Verified 03/18/17 22: 22 Vomiting amantadine AdvReac Unknown Nausea & Verified 03/18/17 22:22 Vomiting Physical Examination - Vital Signs Vital Signs: Vital Signs Temp Pulse Pulse Resp BP BP Pulse Ox 03/19/17 15:00 98.9 F 79 16 126/67 95 03/19/17 07:00 97.9 F 66 16 127/75 93 L 03/19/17 04:00 16 03/19/17 02:29 98.7 F 78 16 103/51 92 L 03/19/17 02:00 78 16 03/19/17 01:09 98.7 F 76 17 104/58 93 L 03/18/17 23:54 94 20 95/55 90 L 03/18/17 23:30 92 03/18/17 22:57 100 03/18/17 21:19 103.2 F H 100 24 145/63 94 L Intake and Output 03/19/17 03/19/17 03/19/17 06:59 14:59 22:59 Intake Total 780 737.5 Balance 780 737.5 Intake: Intake, IV Titration 300 487.5 Amount Sodium Chloride 0.9% 1, 300 487.5 000 ml @ 75 mls/hr IV . [id number] STA Rx#:[id number] Oral 480 250 Other: Voiding Method Toilet # Voids 1 1 - Constitutional General appearance: average body habitus, cooperative - EENT EENT: PERRL, mucous membranes moist - Respiratory Respiratory: lungs clear, normal breath sounds - Cardiovascular Cardiovascular: regular rate, normal S1, normal S2 Extremities: no peripheral edema bilaterally - Gastrointestinal Gastrointestinal: normoactive bowel sounds - Integumentary Integumentary: normal - Neurologic Cranial nerve examination: PERRL, EOMI, V1/V2/V3 grossly intact, face symmetric , tongue midline, intact gag reflex, intact corneal reflex, normal palatal elevation Speech examination: intact Sensorimotor examination: intact Motor examination - right side: 4/5: biceps, triceps, wrist flexion, wrist extension, die fitter, hip flexors, knee extensors, dorsiflexion, toe extension (EHL) , plantarflexion Motor examination - left side: 4/5: biceps, triceps, wrist flexion, wrist extension, die fitter, hip flexors, knee extensors, dorsiflexion, toe extension (EHL) , plantarflexion Detailed sensory examination: intact Reflex and gait examination: intact Reflexes: 1+: ankle, bicep, knee, tricep - Musculoskeletal Musculoskeletal: no pain - Psychiatric Psychiatric: mood/affect appropriate, cooperative Results - Laboratory Findings CBC and BMP: 03/18/17 21:45 03/18/17 21:45 Abnormal Lab Findings: Abnormal Labs 03/18/17 03/18/17 03/18/17 21:45 21:45 21:45 RBC 4.18 L Hgb 12.4 L Lymphocytes # (Manual) 0.70 L Metamyelocytes # (Man) 0.19 H Sodium 147 H Glucose 262 H POC Glucose (mg/dL) Hemoglobin A1c Plasma Lactic Acid Ermias 3.1 H* Total Protein 6.2 L Albumin 3.2 L 03/18/17 03/19/17 03/19/17 21:45 00:18 07:02 RBC Hgb Lymphocytes # (Manual) Metamyelocytes # (Man) Sodium Glucose POC Glucose (mg/dL) 294 H Hemoglobin A1c 7.0 H Plasma Lactic Acid Ermias 3.2 H* Total Protein Albumin 03/19/17 03/19/17 11:27 16:32 RBC Hgb Lymphocytes # (Manual) Metamyelocytes # (Man) Sodium Glucose POC Glucose (mg/dL) 227 H 128 H Hemoglobin A1c Plasma Lactic Acid Ermias Total Protein Albumin Assessment and Plan (1) Community acquired pneumonia Current Visit: Yes Status: Acute Code(s): J18.9 - PNEUMONIA, UNSPECIFIED ORGANISM SNOMED Code(s): 959904968 (2) Seizure disorder Current Visit: Yes Status: Acute Code(s): G40.909 - EPILEPSY, UNSP, NOT INTRACTABLE, WITHOUT STATUS EPILEPTICUS SNOMED Code(s): 749071384 (3) Multiple sclerosis Current Visit: No Status: Acute Code(s): G35 - MULTIPLE SCLEROSIS SNOMED Code(s): 78605990 (4) Sepsis Current Visit: Yes Status: Acute Code(s): A41.9 - SEPSIS, UNSPECIFIED ORGANISM SNOMED Code(s): 43918905 Plan: This patient is a 51-year-old male with multiple complex medical issues including a diagnosis of seizure disorder and multiple sclerosis. He has been treated in the outpatient neurology clinic with Dr. Chang. He underwent recent treatment for his MS and is started on IV infusion with Ocrevus. He received 1 dose of this treatment and is scheduled to have his next dose soon after discharge. Patient also was found on admission to have evidence of increasing shortness of breath and difficulty breathing. He was found to have evidence of bilateral pneumonia and was admitted to Hospital. His initial temperature in the ER was as high as 103. He is now afebrile and has been started on 2 IV antibiotics. He has a history of seizure disorder for which she has been taking Depakote and Vimpat. His Depakote level on admission was subtherapeutic at 44.1. Apparently this past Sunday he had a small seizure- like event. It was unclear but he had some posturing and tonic phase of seizure motion. He underwent placement of a VNS stimulator for seizure management in November of last year. Apparently this did be decrease his number of seizure events. He underwent laboratory testing for influenza A and B both of which came back negative. As mentioned he is on IV antibiotic therapy at this time. His current symptoms of weakness felt to be secondary to his pneumonia. We will recheck his anticonvulsant blood levels tomorrow and will continue close monitoring. We will await further recommendations from pulmonary medicine. His overall prognosis at this time remains very guarded. If he should show signs of MS exacerbation he may be considered for low dose IV Solu-Medrol. Given his recent septic picture however would continue to monitor his condition closely before initiating high-dose treatment. Case was discussed at length with the patient and his at bedside. All their questions were answered. We will continue to monitor his progress closely during this admission. He should follow-up with Dr. Shuayto soon after discharge from hospital. We will continue to follow his condition closely. Time with Patient: Greater than 30
[2017-03-19 20:29] LABS: Glucose,Whole Blood 166 mg/dL (75-99)
[2017-03-20 06:58] LABS: Glucose,Whole Blood 101 mg/dL (75-99)
[2017-03-20] MEDS: INSULIN ASPART 100 UNIT/ML 1 ML 10 ML VIAL SQ SCH ×4 (07:44→20:31)
[2017-03-20] MEDS: DULoxetine HCL 60 MG CAPSULE.DR PO SCH (07:48)
[2017-03-20] MEDS: MIRTAZAPINE 15 MG TAB PO SCH ×2 (07:48→20:31)
[2017-03-20] MEDS: GLYXAMBI PO SCH (07:48)
[2017-03-20] MEDS: AZITHROMYCIN 500 MG in SODIUM CHLORIDE 0.9% 250 ML IVPB SCH (07:48)
[2017-03-20] MEDS: LACOSAMIDE 150 MG TABLET PO SCH ×2 (07:48→20:31)
[2017-03-20] MEDS: metFORMIN 500 MG TAB PO SCH ×2 (07:48→20:31)
[2017-03-20] MEDS: DIVALPROEX ER 500 MG TAB.ER.24H PO SCH ×2 (07:48→16:01)
[2017-03-20] MEDS: PREGABALIN 75 MG CAP PO SCH ×2 (07:48→20:31)
[2017-03-20 08:13] LABS: HCT 35.4 % (39.0-53.0); Hypochromasia Slight; MCH 29.6 pg (25.0-35.0); MCHC 31.2 g/dL (31.0-37.0); Mean Platelet Volume 7.1; Platelet Count 254 k/uL (150-450); RBC 3.72 m/uL (4.30-5.90); RDW 14.8 % (11.5-15.5); WBC 10.7 k/uL (3.8-10.6)
[2017-03-20 08:20] LABS: Anion Gap 10 mmol/L; Blood Urea Nitrogen 22 mg/dL (9-20); Calcium 8.2 mg/dL (8.4-10.2); Carbon Dioxide 25 mmol/L (22-30); Chloride 110 mmol/L (98-107); Glucose 109 mg/dL (74-99); Potassium 4.1 mmol/L (3.5-5.1); Sodium 145 mmol/L (137-145)
[2017-03-20] MEDS: HYDROcodone/APAP 5-325MG 1 EACH TAB PO PRN ×2 (08:57→20:30)
[2017-03-20 09:02] LABS: Valproic Acid (Depakene) 49.3 ug/mL
[2017-03-20] MEDS: LEVOFLOXACIN 500MG-D5W PMX 500 MG in DEXTROSE/WATER 1 100ML.BAG IVPB SCH (10:06)
[2017-03-20 11:38] LABS: Glucose,Whole Blood 137 mg/dL (75-99)
[2017-03-20 11:56] LABS: Band Neutrophils % 4 %; Lymphocytes # (M) 1.28 k/uL (1.0-4.8); Metamyelocytes # (M) 0.21 k/uL (0); Metamyelocytes % 2 %; Monocytes # (M) 0.43 k/uL (0-1.0); Myelocytes # (M) 0.32 k/uL (0); Myelocytes % 3 %; Neutrophils % (M) 77 %; Nucleated Red Blood Cells 0 /100 WBC (0-0); Total Cells Counted 200
[2017-03-20 11:57] LABS: Anisocytosis (M) Present; Poikilocytosis (M) Present
[2017-03-20] MEDS ORDERED: VALPROATE SODIUM 500 MG in SODIUM CHLORIDE 0.9% 50 ML IVPB STA (13:20)
[2017-03-20 16:50] LABS: Glucose,Whole Blood 96 mg/dL (75-99)
--- NOTE | 2017-03-20 17:38 | P.PN ---
Subjective Progress Note Date: 03/20/17 This patient is a 51-year-old male with multiple complex medical issues including history of seizure disorder and multiple sclerosis. Patient was admitted to hospital with increasing weakness and shortness of breath. He underwent a chest x-ray which revealed him to have bilateral pneumonia. He is currently on IV antibody therapy. He is feeling much better today. We did check his Depakote level this morning and it was slightly subtherapeutic at 49.3. He was given a IV bolus of Depacon and his Depakote level can be rechecked tomorrow morning. Patient does have a VNS stimulator and also takes Vimpat in addition for seizure management. He should follow-up with this primary neurologist once discharged. Hopefully he may be switched to oral antibiotic therapy and can be discharged home tomorrow if cleared by his financial counselor. The patient otherwise is doing better. He is being treated for his multiple sclerosis and is on a new form of the medication. He should follow-up with his neurologist soon after discharge from hospital for further management of his MS treatment plan. We will continue to follow his progress closely. His overall prognosis at this time remains guarded. Objective - Vital Signs Vital signs: Vital Signs Temp 97.8 F 03/20/17 15:00 Pulse 89 03/20/17 15:00 Resp 16 03/20/17 15:21 BP 162/82 03/20/17 15:00 Pulse Ox 93 L 03/20/17 15:00 Intake & Output 03/19/17 03/20/17 03/20/17 18:59 06:59 18:59 Intake Total 737.5 1600 225 Balance 737.5 1600 225 Intake: Intake, IV Titration 487.5 800 225 Amount Azithromycin 500 mg In 125 Sodium Chloride 0.9% 250 ml @ 125 mls/hr IVPB DAILY [facility] Rx#:[id number] Levofloxacin 500Mg-D5w 100 Pmx 500 mg In Dextrose/ Water 1 100ml.bag @ 100 mls/hr IVPB Q24H [facility] Rx#: [id number] Sodium Chloride 0.9% 1, 487.5 750 000 ml @ 75 mls/hr IV . [id number] [facility] Rx#:[id number] Valproate Sodium 700 mg 50 In Sodium Chloride 0.9% 50 ml @ 50 mls/hr IVPB ONCE [facility] Rx#:[id number] Oral 250 800 Other: Voiding Method Toilet # Voids 1 2 3 - Exam Physical examination: PHYSICAL EXAMINATION: Patient is resting comfortably in bed. VITAL SIGNS: Blood pressure is [162/82]. Heart rate is [89]. Respiration is [16] . Temperature is [97.8]. HEENT: Head is atraumatic, neck is supple, there were no carotid bruits. CHEST: Lungs are clear to auscultation and percussion. CARDIAC: S1, S2 normal rate and rhythm. There is no murmur. ABDOMEN: Soft and nontender. Bowel sounds are present. EXTREMITIES: There is no pedal edema. Peripheral pulses are present. Neurological examination: Patient has a nonfocal neurological examination today. - Labs CBC & Chem 7: 03/20/17 07:15 03/20/17 07:15 Labs: Abnormal Lab Results - Last 24 Hours (Table) 03/19/17 03/20/17 03/20/17 Range/Units 20:26 06:49 07:15 WBC 10.7 H (3.8-10.6) k/uL RBC 3.72 L (4.30-5.90) m/uL Hgb 11.0 L (13.0-17.5) gm/dL Hct 35.4 L (39.0-53.0) % Neutrophils # (Manual) 8.60 H (1.3-7.7) k/uL Metamyelocytes # (Man) 0.21 H (0) k/uL Myelocytes # (Manual) 0.32 H (0) k/uL Chloride (98-107) mmol/L BUN (9-20) mg/dL Glucose (74-99) mg/dL POC Glucose (mg/dL) 166 H 101 H (75-99) mg/dL Calcium (8.4-10.2) mg/dL 03/20/17 03/20/17 Range/Units 07:15 11:35 WBC (3.8-10.6) k/uL RBC (4.30-5.90) m/uL Hgb (13.0-17.5) gm/dL Hct (39.0-53.0) % Neutrophils # (Manual) (1.3-7.7) k/uL Metamyelocytes # (Man) (0) k/uL Myelocytes # (Manual) (0) k/uL Chloride 110 H (98-107) mmol/L BUN 22 H (9-20) mg/dL Glucose 109 H (74-99) mg/dL POC Glucose (mg/dL) 137 H (75-99) mg/dL Calcium 8.2 L (8.4-10.2) mg/dL Microbiology - Last 24 Hours (Table) 03/18/17 21:45 Blood Culture - Preliminary Blood No Growth after 24 hours Assessment and Plan (1) Community acquired pneumonia Current Visit: Yes Status: Acute Code(s): J18.9 - PNEUMONIA, UNSPECIFIED ORGANISM SNOMED Code(s): 543517666 (2) Seizure disorder Current Visit: Yes Status: Acute Code(s): G40.909 - EPILEPSY, UNSP, NOT INTRACTABLE, WITHOUT STATUS EPILEPTICUS SNOMED Code(s): 690464599 (3) Multiple sclerosis Current Visit: No Status: Acute Code(s): G35 - MULTIPLE SCLEROSIS SNOMED Code(s): 44587074 (4) Sepsis Current Visit: Yes Status: Acute Code(s): A41.9 - SEPSIS, UNSPECIFIED ORGANISM SNOMED Code(s): 89304159 Plan: This patient is a 51-year-old male who was admitted hospital for acute bilateral pneumonia and shortness of breath. He is doing much better today after starting on IV antibiotics. His been up and ambulating without any new symptoms of weakness. He has multiple complex medical issues including history of seizure disorder and multiple sclerosis. His Depakote level this morning was slightly subtherapeutic and it was suggested with IV bolus Depacon. We will recheck a Depakote level tomorrow morning. He should follow-up with his primary neurologist for further management of his MS is he is on new treatment medication. Hopefully he'll be converted to oral antibiotics tomorrow and may be able to be discharged home. His overall prognosis at this time remains very guarded.
[2017-03-20 19:48] LABS: Glucose,Whole Blood 145 mg/dL (75-99)
[2017-03-21] MEDS: DIVALPROEX ER 500 MG TAB.ER.24H PO SCH ×2 (00:24→08:46)
[2017-03-21 00:43] VITALS: PULSE 69
[2017-03-21 01:54] VITALS: RESP 16
[2017-03-21 06:55] LABS: Glucose,Whole Blood 110 mg/dL (75-99)
--- NOTE | 2017-03-21 07:00 | PN ---
PROGRESS NOTE SUBJECTIVE: A 51-year-old white male with sepsis, community-acquired pneumonia, multiple sclerosis exacerbation. Remains on IV antibiotics, IV steroids for multiple sclerosis exacerbation. CARDIOVASCULAR: S1, S2. LUNGS: Scattered rhonchi and wheeze. HEMATOLOGY: Negative Homans. PSYCH: Fair mood and affect. ASSESSMENT: 1. Sepsis, community-acquired pneumonia. 2. Multiple sclerosis exacerbation. The patient be sent home tomorrow on Levaquin for a week and azithromycin for a week and IV steroids. Follow up next 24 to 48 hours. MMODL / IJN: [id number] /
[2017-03-21] MEDS: INSULIN ASPART 100 UNIT/ML 1 ML 10 ML VIAL SQ SCH ×2 (07:48→13:12)
[2017-03-21 07:52] VITALS: BP 158/84; TEMP 97.3
[2017-03-21] MEDS: MIRTAZAPINE 15 MG TAB PO SCH (08:46)
[2017-03-21] MEDS: PREGABALIN 75 MG CAP PO SCH (08:46)
[2017-03-21] MEDS: metFORMIN 500 MG TAB PO SCH (08:46)
[2017-03-21] MEDS: DULoxetine HCL 60 MG CAPSULE.DR PO SCH (08:46)
[2017-03-21] MEDS: LEVOFLOXACIN 500MG-D5W PMX 500 MG in DEXTROSE/WATER 1 100ML.BAG IVPB SCH (08:47)
[2017-03-21] MEDS: GLYXAMBI PO SCH (08:47)
[2017-03-21] MEDS: HYDROcodone/APAP 5-325MG 1 EACH TAB PO PRN (09:00)
[2017-03-21] MEDS: LACOSAMIDE 150 MG TABLET PO SCH (09:53)
[2017-03-21] MEDS: AZITHROMYCIN 500 MG in SODIUM CHLORIDE 0.9% 250 ML IVPB SCH (09:53)
[2017-03-21 11:09] LABS: Glucose,Whole Blood 145 mg/dL (75-99)
--- NOTE | 2017-03-21 12:51 | DS ---
DISCHARGE SUMMARY DISCHARGE MEDICATIONS: 1. Metformin 1000 b.i.d. 2. Lyrica 150 b.i.d. 3. Motrin 800 t.i.d. 4. Cymbalta 60 daily. 5. 25/5 one daily. 6. Zanaflex 4 mg every 6 hours p.r.n. 7. AndroGel 2 applications every 48 hours. 8. Remeron 15 mg b.i.d. 9. Vimpat 150 b.i.d. 10.Depakote ER 500 every 8 hours. 11.Z-Ever dispense 1, use as directed. 12.Levaquin 500 mg 1 daily for a week. 13.Medrol Dosepak, dispense 1. CONDITION: Stable. PROGNOSIS: Guarded. FOLLOWUP: Follow up in the office in a week. HOSPITAL COURSE OF EVENTS: This is a white male who was admitted with COPD exacerbation with MS exacerbation and tracheobronchitis, found to have right lower lobe pneumonia. The patient greatly improved from medical standpoint from community-acquired pneumonia and with IV antibiotics for 2 days with Levaquin and azithromycin. Patient has penicillin allergy. He was given some IV steroids. He will be sent home on medications as mentioned above. Follow up in office in a week. He greatly improved in the 2 days he was admitted for. See Neurology for MS exacerbation. Give some IV steroids, low-dose while in the hospital. The patient is stabilized. Follow up next week. MMODL / IJN: [id number] /
== END 2017-03-21 14:30 | disposition home or self-care (01) | DRG 871 ==
LOC: EC 21:13 → 3SUR 03-19 00:23
PROVIDERS: ADMIT Family Medicine; ATTEND Family Medicine
DX: A41.9 Sepsis, unspecified organism (principal); J18.9 Pneumonia, unspecified organism; J44.0 Chronic obstructive pulmonary disease with (acute) lower respiratory infection; J44.1 Chronic obstructive pulmonary disease with (acute) exacerbation; E11.9 Type 2 diabetes mellitus without complications; E86.0 Dehydration; G35 Multiple sclerosis; G40.909 Epilepsy, unspecified, not intractable, without status epilepticus; J20.9 Acute bronchitis, unspecified; K21.9 Gastro-esophageal reflux disease without esophagitis; K59.00 Constipation, unspecified; F32.9 Major depressive disorder, single episode, unspecified; F41.9 Anxiety disorder, unspecified; M19.90 Unspecified osteoarthritis, unspecified site; R06.03 Acute respiratory distress; R11.0 Nausea; Z79.84 Long term (current) use of oral hypoglycemic drugs; Z79.899 Other long term (current) drug therapy; Z88.0 Allergy status to penicillin; Z88.8 Allergy status to other drugs, medicaments and biological substances; Z82.49 Family history of ischemic heart disease and other diseases of the circulatory system
CPT/HCPCS: 36415; 71046; 80048; 80053; 80164; 83036; 83605; 83735; 83880; 84484; 85025; 85610; 87040; 87502; 93005; 94640; 96361; 96374; 99284

== ENCOUNTER → 2017-05-10 | Outpatient (CLI) | payer BC ==
[2017-05-10 11:05] LABS: Basophils % (A) 1 %; Eosinophils # (A) 0.1 k/uL (0-0.7); Eosinophils % (A) 1 %; HCT 41.9 % (39.0-53.0); HGB 13.6 gm/dL (13.0-17.5); Lymphocytes # (A) 1.1 k/uL (1.0-4.8); Lymphocytes % (A) 16 %; MCH 29.4 pg (25.0-35.0); MCHC 32.3 g/dL (31.0-37.0); MCV 90.9 fL (80.0-100.0); Mean Platelet Volume 7.1; Monocytes # (A) 0.5 k/uL (0-1.0); Monocytes % (A) 7 %; Neutrophils # (A) 5.4 k/uL (1.3-7.7); Neutrophils % (A) 75 %; Platelet Count 233 k/uL (150-450); RBC 4.61 m/uL (4.30-5.90); RDW 14.2 % (11.5-15.5); WBC 7.2 k/uL (3.8-10.6)
[2017-05-10 11:24] LABS: ALT 33 U/L (21-72); AST 26 U/L (17-59); Albumin 4.5 g/dL (3.5-5.0); Alkaline Phosphatase 84 U/L (38-126); Anion Gap 13 mmol/L; Blood Urea Nitrogen 19 mg/dL (9-20); Calcium 9.8 mg/dL (8.4-10.2); Carbon Dioxide 28 mmol/L (22-30); Chloride 103 mmol/L (98-107); Glucose 174 mg/dL (74-99); Potassium 4.6 mmol/L (3.5-5.1); Sodium 144 mmol/L (137-145); Total Bilirubin 0.5 mg/dL (0.2-1.3); Total Protein 7.8 g/dL (6.3-8.2)
[2017-05-10 11:39] LABS: T4, Free (Free Thyroxine) 0.75 ng/dL (0.78-2.19)
[2017-05-10 16:36] LABS: Folate, Serum 21.3 ng/mL
[2017-05-10 16:38] LABS: Hepatitis A Antibody IgM Non-Reactive (Non-Reactive); Hepatitis B Core IgM Non-Reactive (Non-Reactive)
[2017-05-10 16:41] LABS: HIV AB P24 Non-Reactive (Non-Reactive); HIV P24 AG Non-Reactive (Non-Reactive)
[2017-05-10 16:51] LABS: Hemoglobin A1C 6.7 % (4.0-6.0)
[2017-05-11 10:41] LABS: Vitamin B1 55 ug/L (38-122)
== END ==
LOC: LABWHC1 10:17
PROVIDERS: ATTEND Psychiatry & Neurology Pain Medicine
DX: G35 Multiple sclerosis (principal); Z51.81 Encounter for therapeutic drug level monitoring; Z79.891 Long term (current) use of opiate analgesic
CPT/HCPCS: 36415; 80053; 80074; 82306; 82607; 82746; 83036; 84207; 84425; 84439; 84443; 84481; 84591; 85025; 87390

== ENCOUNTER → 2017-06-04 | Outpatient (CLI) | payer BC ==
[2017-06-04 18:36] LABS: Blood Urea Nitrogen 15 mg/dL (9-20)
--- NOTE | 2017-06-04 19:56 | CT ---
EXAMINATION TYPE: CT brain wo/w con DATE OF EXAM: 06/04/2017 COMPARISON: 10/18/2016 HISTORY: Neck and back pain, memory loss. Hx of MS. CT DLP: 2258.3 mGycm Automated exposure control for dose reduction was used. CONTRAST: CT scan of the head is performed without and with IV Contrast, patient injected with 100 mL of Isovue 300. FINDINGS: There is mucosal thickening and fluid levels in the maxillary sinuses. Ventricles have fairly normal size. There is mild hypodensity in the periventricular white matter around the frontal horns of the l ateral ventricles. There is no midline shift. There is no sign of intracranial hemorrhage. The calvar ium is intact. IMPRESSION: Mild atrophy. Chronic frontal lobe mild small vessel ischemia. No acute intracranial abnormality. No change in the appearance of the brain. There is new bilateral maxillary sinusitis.
--- NOTE | 2017-06-04 21:38 | CT ---
EXAMINATION TYPE: CT CervThoracic spine wo con DATE OF EXAM: 06/04/2017 COMPARISON: NONE HISTORY: Neck and back pain, memory loss. Hx of MS. CT DLP: 1983.43 mGycm Automated exposure control for dose reduction was used. FINDINGS: Thoracic vertebra have fairly normal alignment. There is minor spurring of the endplates. There is ne ural stimulator in the mid thoracic spinal canal. I see no compression fracture. There is mild osteop enia. There is no thoracic paraspinal mass. I see no focal bone destruction. There is a 1 cm calculus in the left kidney. There is a small calculus in the anterior right kidney. Cervical vertebra have normal alignment. There is moderate spurring anteriorly at C6-7. There is no c ompression fracture in the cervical spine. Posterior elements are intact. Facet joints are intact. Sk ull base is intact. I see no focal bone destruction. IMPRESSION: NO FRACTURE SEEN. MILD DEGENERATIVE DISC CHANGES ABOVE. NONOBSTRUCTING RENAL CALCULI. NO FRACTURE SEEN.
== END | disposition home or self-care (01) ==
LOC: RADCTMAIN 17:36
PROVIDERS: ATTEND Psychiatry & Neurology Neurology
DX: G31.9 Degenerative disease of nervous system, unspecified (principal); I67.89 Other cerebrovascular disease; M46.04 Spinal enthesopathy, thoracic region; M85.88 Other specified disorders of bone density and structure, other site; M46.02 Spinal enthesopathy, cervical region; Z88.0 Allergy status to penicillin; Z88.8 Allergy status to other drugs, medicaments and biological substances
CPT/HCPCS: 82565; 84520; 72128; 72125; 70470; 36415; Q9967

== ENCOUNTER → 2017-07-06 | Outpatient (CLI) | payer BC ==
[2017-07-06 14:17] LABS: Basophils % (A) 0 %; Eosinophils # (A) 0.1 k/uL (0-0.7); Eosinophils % (A) 1 %; HCT 47.9 % (39.0-53.0); HGB 15.2 gm/dL (13.0-17.5); Lymphocytes # (A) 1.3 k/uL (1.0-4.8); Lymphocytes % (A) 14 %; MCH 28.9 pg (25.0-35.0); MCHC 31.8 g/dL (31.0-37.0); MCV 90.7 fL (80.0-100.0); Monocytes # (A) 0.7 k/uL (0-1.0); Monocytes % (A) 7 %; Neutrophils # (A) 7.6 k/uL (1.3-7.7); Neutrophils % (A) 78 %; Platelet Count 230 k/uL (150-450); RBC 5.28 m/uL (4.30-5.90); RDW 14.6 % (11.5-15.5); WBC 9.8 k/uL (3.8-10.6)
[2017-07-06 14:27] LABS: ALT 32 U/L (21-72); AST 22 U/L (17-59); Albumin 4.9 g/dL (3.5-5.0); Alkaline Phosphatase 82 U/L (38-126); Anion Gap 18 mmol/L; Blood Urea Nitrogen 20 mg/dL (9-20); Calcium 10.1 mg/dL (8.4-10.2); Carbon Dioxide 28 mmol/L (22-30); Chloride 99 mmol/L (98-107); Glucose 167 mg/dL (74-99); Potassium 4.4 mmol/L (3.5-5.1); Sodium 145 mmol/L (137-145); Total Bilirubin 0.4 mg/dL (0.2-1.3); Total Protein 7.8 g/dL (6.3-8.2)
[2017-07-06 14:43] LABS: T4, Free (Free Thyroxine) 0.75 ng/dL (0.78-2.19)
[2017-07-06 18:44] LABS: Iron Saturation 19.24 (15.00-50.00)
== END | disposition home or self-care (01) ==
LOC: LABWHC1 12:41
PROVIDERS: ATTEND Psychiatry & Neurology Pain Medicine
DX: G40.909 Epilepsy, unspecified, not intractable, without status epilepticus (principal)
CPT/HCPCS: 36415; 80053; 82728; 83540; 83550; 84439; 84443; 84466; 84481; 85025

== ENCOUNTER → 2017-10-06 | Outpatient (CLI) | payer BC ==
--- NOTE | 2017-10-06 18:39 | CT ---
EXAMINATION TYPE: CT cervical spine wo con DATE OF EXAM: 10/06/2017 COMPARISON: 06/04/2017 CT cervical spine HISTORY: Left sided neck and arm pain. CT DLP: 742 mGycm. Automated Exposure Control for Dose Reduction was Utilized. TECHNIQUE: CT scan of the cervical spine is obtained without contrast, axial images are obtained, sa gittal and coronal reformatted images are also reviewed. FINDINGS: There is redemonstration of mild multilevel degenerative changes of the cervical spine. The re is calcification in the intervertebral disc space at C6-C7. There is straightening and mild revers al of the usual cervical lordosis from C2 through C7. There is very mild anterolisthesis of C3 on C4 of approximately 1 mm. This is likely degenerative in nature. Small osseous cysts are also noted C4 a nd C5. Mild uncovertebral hypertrophy and facet arthropathy are seen throughout. Retained posterior n asopharyngeal secretions are incidentally seen. Evaluation of the spinal canal is limited on CT. Cervical spine is visualized in its entirety from C1 through upper thoracic levels, demonstrates sati sfactory alignment without evidence of acute fracture or dislocation. Prevertebral soft tissue appea rs within normal limits. The C1-C2 articulation is within normal limits on the coronal images. At C2-C3 there is no significant disc disease on CT seen. No spinal canal stenosis or neural foramina l narrowing. At C3-C4 there is uncovertebral hypertrophy and a broad-based disc bulge creating mild left neural fo raminal narrowing. At C4-C5 there is a focal central disc herniation/protrusion and seen on series 3 image 58 creating m ild spinal canal stenosis. Left-sided uncovertebral hypertrophy and facet arthropathy creating mild l eft neural foraminal narrowing. Right neuroforamen is patent. At C5-C6 there is a broad-based disc bulge without neural foraminal narrowing. Mild spinal canal sten osis is seen. At C6-C7 there is a broad-based disc bulge and uncovertebral hypertrophy with resultant mild spinal c anal stenosis. No significant neural foraminal narrowing. At C7-T1 there is no significant disc disease on CT seen. No spinal canal stenosis or neural foramina l narrowing. IMPRESSION: 1. No acute fracture other cervical spine. 2. Reversal usual cervical lordosis that may relate to muscular sprain or spasm and very mild anterol isthesis of C3 on C4 (1 mm) that is likely on a degenerative basis. 3. Focal central disc herniation at C4-C5 creating mild spinal canal stenosis. This in combination wi th degenerative changes create mild left neural foraminal narrowing. 4. Broad-based disc bulges at C5-C6 and C6-C7 resulting in mild spinal canal stenosis. Other degenera tive disc disease as described above.
== END | disposition home or self-care (01) ==
LOC: RADCTMAIN 09:32
PROVIDERS: ATTEND Orthopaedic Surgery Orthopaedic Surgery of the Spine
DX: M48.02 Spinal stenosis, cervical region (principal); M50.121 Cervical disc disorder at C4-C5 level with radiculopathy; M43.12 Spondylolisthesis, cervical region; M47.22 Other spondylosis with radiculopathy, cervical region; M99.71 Connective tissue and disc stenosis of intervertebral foramina of cervical region; M50.10 Cervical disc disorder with radiculopathy, unspecified cervical region; M99.83 Other biomechanical lesions of lumbar region; M43.17 Spondylolisthesis, lumbosacral region; G35 Multiple sclerosis; E11.9 Type 2 diabetes mellitus without complications; G40.909 Epilepsy, unspecified, not intractable, without status epilepticus; Z98.890 Other specified postprocedural states
CPT/HCPCS: 72125

== ENCOUNTER → 2017-10-11 | Outpatient (CLI) | payer BC ==
[~2017-10-11] MED LIST: REGADENOSON 0.4 MG/5 ML SYRINGE IV ONE
--- NOTE | 2017-10-12 07:53 | EST ---
EXERCISE STRESS AGE: 52 SEX: M HT: 6'0" WT: 250 PROTOCOL: Lexiscan Cardiolite Stress Test HEART RATE REST: 83 BLOOD PRESSURE REST: 159/92 MAXIMUM HEART RATE ACHIEVED: 103 MAXIMUM BLOOD PRESSURE: 192/67 INDICATION: Abnormal EKG. CLINICAL INFORMATION: Baseline EKG shows sinus rhythm, normal axis, normal intervals. Patient was given intravenous Lexiscan as per protocol. Did not have chest pain or diagnostic ST-segment depression. CONCLUSION: 1. Negative stress test by EKG criteria. 2. Cardiolite portion of the stress test will be reported separately. MMODL / IJN: [id number] /
--- NOTE | 2017-10-12 08:04 | NM ---
"EXAMINATION TYPE: NM stress lexiscan cardiolite DATE OF EXAM: 10/11/2017 COMPARISON: NONE HISTORY: Abnormal EKG TECHNIQUE: After the intravenous administration of 10.9 mCi Tc 99m Sestamibi - Cardiolite resting SP ECT images acquired 75 minutes post injection. The patient received 0.4mg Lexiscan, 26.1 mCi Tc 99m Sestamibi - Stress images obtained [address] injection FINDINGS: A tiny reversible defect may be at the distal anterior septal wall with a defect on the str ess images which has a more normal appearance on the resting images. This is supported by the polar m aps. Gated wall motion is normal. Ejection fraction of 57% is normal. IMPRESSION: 1. Suggestion of subtle stress-induced ischemic change within the small anterior lateral wall defect near the apex A Motley level critical message alert has been initiated for Bruce Khan MD via the [employer] 36 0 | Critical Results System on 10/11/2017 4:42 PM. This message alert has been sent to Bruce Khan MD via the preferences provided by the clinician for the receipt of Radiology Critical Findings. Mess age ID [id number]."
== END | disposition home or self-care (01) ==
LOC: RADNMMAIN 08:39
PROVIDERS: ATTEND Family Medicine
DX: R94.31 Abnormal electrocardiogram [ECG] [EKG] (principal)
CPT/HCPCS: 93017; 78452; A9500; J2785

== ENCOUNTER → 2017-11-07 | Outpatient (CLI) | payer BC ==
[2017-11-07 10:55] LABS: HCT 43.4 % (39.0-53.0); HGB 13.8 gm/dL (13.0-17.5); MCHC 31.7 g/dL (31.0-37.0); MCV 94.7 fL (80.0-100.0); Mean Platelet Volume 6.5; Platelet Count 248 k/uL (150-450); RBC 4.59 m/uL (4.30-5.90); RDW 14.8 % (11.5-15.5)
[2017-11-07 11:15] LABS: Anion Gap 11 mmol/L; Blood Urea Nitrogen 20 mg/dL (9-20); Carbon Dioxide 33 mmol/L (22-30); Chloride 100 mmol/L (98-107); Potassium 4.6 mmol/L (3.5-5.1); Sodium 144 mmol/L (137-145)
== END | disposition home or self-care (01) ==
LOC: LABPAT 10:39
PROVIDERS: ATTEND Internal Medicine Cardiovascular Disease
DX: Z01.812 Encounter for preprocedural laboratory examination (principal); I10 Essential (primary) hypertension; R94.39 Abnormal result of other cardiovascular function study; R07.9 Chest pain, unspecified; E11.9 Type 2 diabetes mellitus without complications
CPT/HCPCS: 36415; 80051; 82565; 84520; 85027

== ENCOUNTER 2017-11-15 10:04 | Day surgery (SDC) | payer BC ==
[2017-11-14 10:29] VITALS: BMI 38.3
[~2017-11-15 10:04] MED LIST changes: +ALPRAZolam 0.25 MG TAB PO PRN; +ASPIRIN 325 MG TAB PO ONE; +ATORVASTATIN 80 MG TAB PO STA; -REGADENOSON 0.4 MG/5 ML SYRINGE IV ONE; +SODIUM CHLORIDE 0.9% 1,000 ML in EMPTY BAG 1 BAG IV ONE
[2017-11-15] MEDS ORDERED: SODIUM CHLORIDE 0.9% 1,000 ML IV ONE (10:30)
[2017-11-15 11:15] LABS: Glucose,Whole Blood 166 mg/dL (75-99)
[2017-11-15 11:23] VITALS: RESP 16; TEMP 98.7
[2017-11-15] MEDS ORDERED: MIDAZOLAM 2 MG/2 ML VIAL ONE (11:48)
[2017-11-15] MEDS: MIDAZOLAM 2 MG/2 ML VIAL IV ONE ×2 (11:53→12:14)
[2017-11-15] MEDS ORDERED: LIDOCAINE 1% INJ 10MG/ML (20 ML MDV) SQ ONE (12:17)
[2017-11-15] MEDS ORDERED: fentaNYL (PF) 50 MCG/ML 2 ML AMP ONE (12:17)
[2017-11-15] MEDS ORDERED: fentaNYL (PF) 50 MCG/ML 2 ML AMP IV ONE (12:18)
[2017-11-15] MEDS ORDERED: IOPAMIDOL-370 125ML BTL INJ ONE (12:30)
[2017-11-15] MEDS ORDERED: SODIUM CHLORIDE 0.9% 1,000 ML IV SCH (12:30)
[2017-11-15] MEDS ORDERED: RX INFO: IV CONTRAST WAS GIVEN 1 EACH MISC MISCELLANE PRN (12:50)
[2017-11-15 13:01] LABS: Glucose,Whole Blood 133 mg/dL (75-99)
--- NOTE | 2017-11-15 13:57 | CC ---
CARDIAC CATHETERIZATION REPORT Mr. Vaz is a 52-year-old gentleman who was seen in the office with the symptoms suggestive of atypical angina. Patient's EKG was abnormal. Lexiscan stress test shows mild anterolateral reversible perfusion defect. In view of the abnormal stress test and abnormal EKG, the patient was recommended to have a cardiac catheterization for definitive diagnosis. PROCEDURE: The right groin was prepped and draped in the usual manner and the skin was infiltrated with 2% Xylocaine. The right femoral artery was entered using Seldinger technique and #6-Kazakh sheath was placed in. Selective coronary angiography was then performed in multiple projections and the left ventricular pressures were obtained. Patient tolerated the procedure well. Sheath was removed and good hemostasis was achieved with the use of Angio-Seal. Moderate sedation was used. Total sedation time was 19 minutes. HEMODYNAMICS: The left ventricular end-diastolic pressure is 12 mmHg prior to angiography. No gradient is noted across the aortic valve. SELECTIVE CORONARY ANGIOGRAPHY: Left main coronary artery is normal and patent. LAD is a good caliber blood vessel and gives rise to a good size diagonal branch. LAD and its branches are normal. Circumflex coronary artery is a good caliber blood vessel and gives rise to a good size obtuse marginal branch. Circumflex coronary artery and its branches are normal. Right coronary artery has minimal irregularity and gives rise to the PDA branch. FINAL IMPRESSION: This study reveals minimal disease in the right coronary artery. LAD and circumflex coronary arteries are normal. RECOMMENDATIONS: Medical treatment and risk factor modification. MMODL / IJN: [id number] /
[2017-11-15 18:36] VITALS: BP 123/70; PULSE 69
== END 2017-11-15 17:40 | disposition home or self-care (01) ==
LOC: CATHCVL 10:04
PROVIDERS: ATTEND Internal Medicine Cardiovascular Disease
DX: I25.10 Atherosclerotic heart disease of native coronary artery without angina pectoris (principal); I10 Essential (primary) hypertension; E78.2 Mixed hyperlipidemia; Z82.49 Family history of ischemic heart disease and other diseases of the circulatory system; Z96.89 Presence of other specified functional implants; E11.9 Type 2 diabetes mellitus without complications; Z79.84 Long term (current) use of oral hypoglycemic drugs; Z79.82 Long term (current) use of aspirin; Z79.899 Other long term (current) drug therapy; Z88.0 Allergy status to penicillin; Z88.8 Allergy status to other drugs, medicaments and biological substances
CPT/HCPCS: 93458; C1760; C1894; C1769; J2250; J2001; J3010; Q9967

== ENCOUNTER → 2017-12-19 | Outpatient (CLI) | payer BC ==
--- NOTE | 2017-12-19 09:23 | CT ---
EXAMINATION TYPE: CT shoulder LT wo con DATE OF EXAM: 12/19/2017 COMPARISON: None HISTORY: shoulder pain x [address] DLP: 439.6 mGycm Automated exposure control for dose reduction was used. Helical imaging through the shoulder. Three-d imensional reconstructions performed in an alternate workstation. FINDINGS: Bone mineralization, joint space and alignment are maintained. Mild arthropathy present at the acromi oclavicular joint. No evident joint effusion, difficult to exclude rotator cuff tear. Remodeling pres ent at the glenohumeral joint suggests underlying arthropathy. There is a generator in the right pect oral region. Lead courses toward the junction between the carotid and internal jugular vein level adj acent to the hyoid. Left lung apex as visualized is normal. Incidental uncovertebral joint hypertroph y noted within the cervical spine. IMPRESSION: THERE IS SOME MILD UNDERLYING ARTHROPATHY PRESENT DESCRIBED.
== END | disposition home or self-care (01) ==
LOC: RADCTMAIN 07:55
PROVIDERS: ATTEND Psychiatry & Neurology Neurology
DX: M12.812 Other specific arthropathies, not elsewhere classified, left shoulder (principal)

== ENCOUNTER 2018-01-17 14:56 | Observation (INO) | payer BC ==
[2018-01-17] MEDS ORDERED: LORazepam 2 MG/ML INJ IV PRN (16:22)
[2018-01-17] MEDS: SODIUM CHLORIDE 0.9% 1,000 ML IV SCH (17:01)
[2018-01-17 17:13] LABS: Glucose,Whole Blood 124 mg/dL (75-99)
--- NOTE | 2018-01-17 17:31 | XR ---
EXAMINATION TYPE: XR chest 2V DATE OF EXAM: 01/17/2018 COMPARISON: 03/18/2017 HISTORY: Weakness and vomiting TECHNIQUE: Frontal and lateral views of the chest are obtained. FINDINGS: Heart and mediastinum are normal. Lungs are clear. There is left axillary neurostimulator noted. Costophrenic angles are clear. Pulmonary vascularity is normal. IMPRESSION: No active cardiopulmonary disease. There is clearing of the bilateral lower lobe pneumon ia compared to old exam.
[2018-01-17 17:35] LABS: Basophils % (A) 1 %; Eosinophils # (A) 0.1 k/uL (0-0.7); Eosinophils % (A) 2 %; HGB 13.7 gm/dL (13.0-17.5); Lymphocytes # (A) 1.2 k/uL (1.0-4.8); Lymphocytes % (A) 14 %; MCH 31.4 pg (25.0-35.0); MCHC 33.4 g/dL (31.0-37.0); MCV 93.8 fL (80.0-100.0); Mean Platelet Volume 6.9; Monocytes # (A) 0.7 k/uL (0-1.0); Monocytes % (A) 8 %; Neutrophils # (A) 6.5 k/uL (1.3-7.7); Neutrophils % (A) 76 %; Platelet Count 217 k/uL (150-450); RBC 4.37 m/uL (4.30-5.90); RDW 13.1 % (11.5-15.5); WBC 8.6 k/uL (3.8-10.6)
[2018-01-17 17:46] LABS: ALT 49 U/L (21-72); AST 32 U/L (17-59); Albumin 4.7 g/dL (3.5-5.0); Alkaline Phosphatase 71 U/L (38-126); Anion Gap 14 mmol/L; Blood Urea Nitrogen 32 mg/dL (9-20); Calcium 10.3 mg/dL (8.4-10.2); Carbon Dioxide 27 mmol/L (22-30); Chloride 100 mmol/L (98-107); Glucose 118 mg/dL (74-99); Potassium 3.6 mmol/L (3.5-5.1); Sodium 141 mmol/L (137-145); Total Bilirubin 0.5 mg/dL (0.2-1.3); Total Protein 7.6 g/dL (6.3-8.2)
[2018-01-17 20:08] LABS: Glucose,Whole Blood 110 mg/dL (75-99)
[2018-01-17] MEDS: INSULIN ASPART 100 UNIT/ML 1 ML 10 ML VIAL SQ SCH (21:20)
[2018-01-17] MEDS: DULoxetine HCL 60 MG CAPSULE.DR PO SCH (21:38)
[2018-01-17] MEDS: LACOSAMIDE 150 MG TABLET PO SCH (21:39)
[2018-01-17] MEDS: IBUPROFEN 800 MG TAB PO SCH (21:39)
[2018-01-17] MEDS: BACLOFEN 10 MG TAB PO PRN (21:41)
[2018-01-17] MEDS: DIVALPROEX ER 500 MG TAB.ER.24H PO SCH (23:06)
[2018-01-17] MEDS ORDERED: VALPROATE SODIUM 1,000 MG in SODIUM CHLORIDE 0.9% 50 ML IVPB STA (23:41)
[2018-01-18] MEDS: SODIUM CHLORIDE 0.9% 1,000 ML IV SCH ×2 (05:47→15:32)
[2018-01-18 06:02] LABS: Hemoglobin A1C 6.8 % (4.0-6.0)
[2018-01-18 06:11] LABS: Appearance,Urine Clear (Clear); Bilirubin,Urine Negative (Negative); Blood,Urine Negative (Negative); Color,Urine Yellow; Glucose,Urine (UA) Negative (Negative); Ketones,Urine 1+ (Negative); Leukocyte Esterase,Urine Negative (Negative); Nitrite,Urine Negative (Negative); Protein,Urine Trace (Negative); Specific Gravity,Urine 1.022 (1.001-1.035); Urobilinogen,Urine <2.0 mg/dL (<2.0)
[2018-01-18 07:20] LABS: Glucose,Whole Blood 152 mg/dL (75-99)
[2018-01-18] MEDS: KETOROLAC 30 MG/ML 1 ML VIAL IM PRN ×2 (07:31→22:18)
[2018-01-18] MEDS: ONDANSETRON 4 MG/2 ML VIAL IVP PRN ×2 (07:44→15:32)
[2018-01-18] MEDS: BACLOFEN 10 MG TAB PO PRN ×2 (07:49→15:27)
[2018-01-18] MEDS: metFORMIN 500 MG TAB PO SCH ×2 (08:32→17:38)
[2018-01-18] MEDS: DIVALPROEX ER 500 MG TAB.ER.24H PO SCH ×3 (08:33→23:34)
[2018-01-18] MEDS: DULoxetine HCL 60 MG CAPSULE.DR PO SCH ×2 (08:34→20:31)
[2018-01-18] MEDS: ASPIRIN 81 MG PO SCH (08:34)
[2018-01-18] MEDS: LACOSAMIDE 150 MG TABLET PO SCH ×2 (08:35→20:31)
[2018-01-18] MEDS ORDERED: SODIUM CHLORIDE 0.9% 1,000 ML IV ONE (08:45)
--- NOTE | 2018-01-18 08:57 | P.CNNES ---
History of Present Illness Consult date: 01/17/18 Reason for Consult: Patient admitted with seizure disorder and Multiple Sclerosis. History of Present Illness: This patient is a 52-year-old right-handed white male who has a underlying history of relapsing remitting form of multiple sclerosis and seizure disorder. Patient apparently went to see his primary care physician today after he had suffered a breakthrough seizure. His physician Dr. Bruce Khan recommended he be admitted to the hospital. Patient has been taking a combination of Depakote and Vimpat for seizure prophylaxis. He has not had any recent anticonvulsant blood levels drawn so we did obtain a stat Depakote level for the patient today. His Depakote level is subtherapeutic at 37.1. We are going to load him with IV Depacon 1 g IV piggyback and continue to monitor his Depakote and Vimpat levels closely. His Vimpat level was also drawn but will take few days to return from the laboratory. Patient states he has been taking his anticonvulsant medications as instructed. Patient also has a history of vagus nerve stimulator placement in October 2016. This is monitored by his regular neurologist. He states it has been programmed and is working fine. As noted he has not had recent blood levels done. He is also been expressing severe diarrhea for the past several weeks and may have some form of colitis. Patient also has a history of underlying primary progressive multiple sclerosis. He is currently receiving treatment with IV infusion with Ocrevus. He is currently receiving IV infusion every 3 months. His MS seems to be fairly well controlled. We will continue close monitoring of the patient during this admission. We'll obtain an EEG for further assessment of his seizure disorder. Depending on the results of his anticonvulsant blood levels further adjustments will be made as needed. We will have physical therapy see the patient as well due to his history of the MS. His overall prognosis at this time remains guarded. Neurology is now been consulted for further evaluation and recommendations. Review of Systems Constitutional: Denies chills, Denies fever Eyes: denies blurred vision, denies pain Ears, nose, mouth and throat: Denies headache, Denies sore throat Cardiovascular: Denies chest pain, Denies shortness of breath Respiratory: Denies cough Gastrointestinal: Denies abdominal pain, Denies diarrhea, Denies nausea, Denies vomiting Musculoskeletal: Denies myalgias Integumentary: Denies pruritus, Denies rash Neurological: Reports gait dysfunction, Reports paresthesias, Reports spasticity , Reports tingling, Denies numbness, Denies weakness Psychiatric: Denies anxiety, Denies depression Endocrine: Denies fatigue, Denies weight change Past Medical History Past Medical History: Chest Pain / Angina, Diabetes Mellitus, Eye Disorder, GERD /Reflux, Memory Impairment, Musculoskeletal Disorder, Neurologic Disorder, Osteoarthritis (OA), Seizure Disorder Additional Past Medical History / Comment(s): 01-17-18 pt wants a flu vaccine before discharge. other pmh: MS, active lesions in brain.stress test, lt kidney stone, cataracts, "macular degeneration", enlarged heart. History of Any Multi-Drug Resistant Organisms: None Reported Past Surgical History: Back Surgery, Heart Catheterization, Tonsillectomy Additional Past Surgical History / Comment(s): c spine, lumbar. spinal cord stimulator. VNS unit left chest. Past Anesthesia/Blood Transfusion Reactions: No Reported Reaction Smoking Status: Never smoker - Past Family History Mother Family Medical History: COPD, Hypertension Father Family Medical History: Coronary Artery Disease (CAD), Myocardial Infarction ([place] ) Additional Family Medical History / Comment(s): cabg Medications and Allergies Home Medications Medication Instructions Recorded Confirmed Type metFORMIN HCL [Glucophage] 1,000 mg PO BID #60 tab 04/24/16 01/17/18 Rx Ibuprofen [Motrin] 800 mg PO TID 05/02/16 01/17/18 History DULoxetine HCL [Cymbalta] 60 mg PO BID 08/18/16 01/17/18 History Divalproex ER [Depakote ER] 500 mg PO Q8H 03/18/17 01/17/18 History Lacosamide [Vimpat] 150 mg PO BID 03/18/17 01/17/18 History Testosterone [Androgel 1.62% Gel 2 applic TOPICAL Q48H 03/18/17 01/17/18 History Pump] Aspirin 81 mg PO DAILY 11/14/17 01/17/18 History Baclofen 10 mg PO TID PRN 11/14/17 01/17/18 History INSULIN LISPRO (HumaLOG) [HumaLOG] See Protocol SQ ACHS 11/14/17 01/17/18 History Lisinopril-Hctz 10-12.5 mg 1 tab PO AC-LUNCH 11/14/17 01/17/18 History [Zestoretic 10-12.5] Perampanel [Fycompa] 6 mg PO DAILY 11/14/17 01/17/18 History Allergies Allergy/AdvReac Type Severity Reaction Status Date / Time Penicillins AdvReac Severe Swelling Verified 01/17/18 16:42 prochlorperazine AdvReac Severe Hallucinati Verified 01/17/18 16:42 [From Compazine] ons prochlorperazine edisylate AdvReac Severe Hallucinati Verified 01/17/18 16:42 [From Compazine] ons prochlorperazine maleate AdvReac Severe Hallucinati Verified 01/17/18 16:42 [From Compazine] ons bupropion HCl AdvReac Intermediate Nausea & Verified 01/17/18 16:42 [From Wellbutrin] Vomiting gabapentin [From Neurontin] AdvReac Intermediate Nausea & Verified 01/17/18 16: 42 Vomiting amantadine AdvReac Unknown Nausea & Verified 01/17/18 16:42 Vomiting Physical Examination - Vital Signs Vital Signs: Vital Signs Temp Pulse Resp BP Pulse Ox 01/17/18 15:53 98.0 F 73 18 114/70 92 L Intake and Output 01/17/18 01/17/18 01/17/18 06:59 14:59 22:59 Other: Voiding Method Toilet Weight 112.5 kg - Constitutional General appearance: average body habitus, cooperative - EENT EENT: PERRL, mucous membranes moist - Respiratory Respiratory: lungs clear, normal breath sounds - Cardiovascular Cardiovascular: regular rate, normal S1, normal S2 Extremities: no peripheral edema bilaterally - Gastrointestinal Gastrointestinal: normoactive bowel sounds - Integumentary Integumentary: normal - Neurologic Cranial nerve examination: PERRL, EOMI, VFF, V1/V2/V3 grossly intact, face symmetric, intact gag reflex, intact corneal reflex, normal palatal elevation Speech examination: intact Motor examination - right side: 4/5: biceps, triceps, wrist flexion, wrist extension, fire prevention forester, hip flexors, knee extensors, dorsiflexion, toe extension (EHL) , plantarflexion Motor examination - left side: 4/5: biceps, triceps, wrist flexion, wrist extension, fire prevention forester, hip flexors, knee extensors, dorsiflexion, toe extension (EHL) , plantarflexion Detailed sensory examination: intact Reflex and gait examination: intact Reflexes: 1+: ankle, bicep, knee, tricep - Musculoskeletal Musculoskeletal: no pain - Psychiatric Psychiatric: mood/affect appropriate, cooperative Results - Laboratory Findings CBC and BMP: 01/17/18 17:20 01/17/18 17:20 Abnormal Lab Findings: Abnormal Labs 01/17/18 01/17/18 01/17/18 17:10 17:20 20:06 BUN 32 H Glucose 118 H POC Glucose (mg/dL) 124 H 110 H Calcium 10.3 H Assessment and Plan Plan: This patient is a 52-year-old male admitted with history of multiple sclerosis and seizure disorder. Patient had a breakthrough seizure and was advised admission to the hospital for further evaluation. He is currently taking combination of Depakote and Vimpat for seizure prophylaxis. A stat Depakote level was done today and is subtherapeutic at 37.1. We loaded the patient with IV Depacon 1 g IV piggyback. We will check his anticonvulsant blood levels tomorrow for further evaluation and management. Patient has a history of advanced primary progressive multiple sclerosis. It is undergoing treatment for this condition and is taking Ocrevus infusions every 3-6 months. Patient also has a vagus nerve stimulator for management of his seizures which is being monitored monthly according to the patient. We will continue current treatment does outlined above for his seizure disorder and will recheck his levels tomorrow morning. We will obtain routine EEG for further assessment as well. So overall prognosis at this time remains guarded. We'll continue with seizure precautions as well and would recommend physical therapy consultation for history of his MS. His overall prognosis at this time remains guarded. We will continue close neurological follow-up for the patient during this admission. Time with Patient: Greater than 30
[2018-01-18] MEDS ORDERED: TESTOSTERONE TOPICAL SCH (09:00)
--- NOTE | 2018-01-18 09:01 | P.GSCN ---
<Alma Red M - Last Filed: 01/18/18 08:46> History of Present Illness Consult date: 01/18/18 Reason for Consult: Abdominal pain nausea vomiting diarrhea History of present illness: 52-year-old male was a direct admission from Dr. Khan office the patient was being seen for a chief complaint of one-week duration of nausea vomiting frequent stooling inability keep fluids down loss of appetite. Patient stated a week ago started having loose stools described as watery painless no blood noted within patient stated he started to develop a sensation of nausea felt like he could not eat or drink developed the dry heaves. Patient stated there is nothing new in his diet he has not started any new medication. There is no other family member 6. Influenza A and B was negative. Patient denied any abdominal pain when questioning. Patient denied any heartburn sensation denied any frequency urgency on urination. Hemoglobin A1c 6.8 AST 32 ALT 49 alkaline phosphatase 71 electrolytes within normal limits afebrile Past medical history multiple sclerosis, seizure disorder, depressive disorder, prior treatment for opiate withdrawal heart catheterization 1 year ago mild coronary artery disease Past surgical history orthopedic procedures back surgery no abdominal surgery Currently patient is resting in bed and states since being admitted to the hospital has had 1 loose stool this morning brown semi-formed states a nausea sensation no active emesis continues to deny abdominal pain Review of Systems Essentially unremarkable except as mentioned in the present illness Past Medical History Past Medical History: Chest Pain / Angina, Diabetes Mellitus, Eye Disorder, GERD /Reflux, Memory Impairment, Musculoskeletal Disorder, Neurologic Disorder, Osteoarthritis (OA), Seizure Disorder Additional Past Medical History / Comment(s): 01-17-18 pt wants a flu vaccine before discharge. other pmh: MS, active lesions in brain.stress test, lt kidney stone, cataracts, "macular degeneration", enlarged heart. History of Any Multi-Drug Resistant Organisms: None Reported Past Surgical History: Back Surgery, Heart Catheterization, Tonsillectomy Additional Past Surgical History / Comment(s): c spine, lumbar. spinal cord stimulator. VNS unit left chest. Past Anesthesia/Blood Transfusion Reactions: No Reported Reaction Smoking Status: Never smoker - Past Family History Mother Family Medical History: COPD, Hypertension Father Family Medical History: Coronary Artery Disease (CAD), Myocardial Infarction ([place] ) Additional Family Medical History / Comment(s): cabg Medications and Allergies Home Medications Medication Instructions Recorded Confirmed Type metFORMIN HCL [Glucophage] 1,000 mg PO BID #60 tab 04/24/16 01/17/18 Rx Ibuprofen [Motrin] 800 mg PO TID 05/02/16 01/17/18 History DULoxetine HCL [Cymbalta] 60 mg PO BID 08/18/16 01/17/18 History Divalproex ER [Depakote ER] 500 mg PO Q8H 03/18/17 01/17/18 History Lacosamide [Vimpat] 150 mg PO BID 03/18/17 01/17/18 History Testosterone [Androgel 1.62% Gel 2 applic TOPICAL Q48H 03/18/17 01/17/18 History Pump] Aspirin 81 mg PO DAILY 11/14/17 01/17/18 History Baclofen 10 mg PO TID PRN 11/14/17 01/17/18 History INSULIN LISPRO (HumaLOG) [HumaLOG] See Protocol SQ ACHS 11/14/17 01/17/18 History Lisinopril-Hctz 10-12.5 mg 1 tab PO AC-LUNCH 11/14/17 01/17/18 History [Zestoretic 10-12.5] Perampanel [Fycompa] 6 mg PO DAILY 11/14/17 01/17/18 History Allergies Allergy/AdvReac Type Severity Reaction Status Date / Time Penicillins AdvReac Severe Swelling Verified 01/17/18 16:42 prochlorperazine AdvReac Severe Hallucinati Verified 01/17/18 16:42 [From Compazine] ons prochlorperazine edisylate AdvReac Severe Hallucinati Verified 01/17/18 16:42 [From Compazine] ons prochlorperazine maleate AdvReac Severe Hallucinati Verified 01/17/18 16:42 [From Compazine] ons bupropion HCl AdvReac Intermediate Nausea & Verified 01/17/18 16:42 [From Wellbutrin] Vomiting gabapentin [From Neurontin] AdvReac Intermediate Nausea & Verified 01/17/18 16: 42 Vomiting amantadine AdvReac Unknown Nausea & Verified 01/17/18 16:42 Vomiting Surgical - Exam Vital Signs Temp Pulse Resp BP Pulse Ox 98.0 F 73 18 114/70 92 L 01/17/18 15:53 01/17/18 15:53 01/17/18 15:53 01/17/18 15:53 01/17/18 15:53 GENERAL APPEARANCE: 52-year-old male patient is alert, oriented, in no acute distress. Sitting up in bed VITAL SIGNS: Reviewed HEENT: Head is normocephalic and atraumatic. Pupils are equal and reactive. The nares are patent. Oropharynx is clear without lesions. NECK: Supple without lymphadenopathy. Traches midline. HEART: S1, S2. Regular rate and rhythm. Denying chest pain LUNGS: No crackles or wheezes are heard. Adequate air movement bilaterally ABDOMEN: Soft, no facial grimacing with palpitation to the abdominal wall patient currently states no abdominal pain nontender, nondistended with good bowel sounds. No peritoneal signs. No palpable organomegaly or masses. EXTREMITIES: Normal skin color and turgor. No cyanosis, rash, ulceration, clubbing or edema. Radial pedal pulses are 2/4 bilaterally. Results - Labs 01/17/18 17:20 01/17/18 17:20 Abnormal Lab Results - Last 24 Hours (Table) 01/17/18 01/17/18 01/17/18 Range/Units 17:10 17:20 17:20 BUN 32 H (9-20) mg/dL Glucose 118 H (74-99) mg/dL POC Glucose (mg/dL) 124 H (75-99) mg/dL Hemoglobin A1c 6.8 H (4.0-6.0) % Calcium 10.3 H (8.4-10.2) mg/dL Urine Protein (Negative) Urine Ketones (Negative) 01/17/18 01/18/18 01/18/18 Range/Units 20:06 05:51 07:10 BUN (9-20) mg/dL Glucose (74-99) mg/dL POC Glucose (mg/dL) 110 H 152 H (75-99) mg/dL Hemoglobin A1c (4.0-6.0) % Calcium (8.4-10.2) mg/dL Urine Protein Trace H (Negative) Urine Ketones 1+ H (Negative) Diabetes panel 01/17/18 01/17/18 Range/Units 17:20 17:20 Sodium 141 (137-145) mmol/L Potassium 3.6 (3.5-5.1) mmol/L Chloride 100 (98-107) mmol/L Carbon Dioxide 27 (22-30) mmol/L BUN 32 H (9-20) mg/dL Creatinine 1.02 (0.66-1.25) mg/dL Glucose 118 H (74-99) mg/dL Hemoglobin A1c 6.8 H (4.0-6.0) % Calcium 10.3 H (8.4-10.2) mg/dL AST 32 (17-59) U/L ALT 49 (21-72) U/L Alkaline Phosphatase 71 (38-126) U/L Total Protein 7.6 (6.3-8.2) g/dL Albumin 4.7 (3.5-5.0) g/dL Calcium panel 01/17/18 Range/Units 17:20 Calcium 10.3 H (8.4-10.2) mg/dL Albumin 4.7 (3.5-5.0) g/dL Pituitary panel 01/17/18 Range/Units 17:20 Sodium 141 (137-145) mmol/L Potassium 3.6 (3.5-5.1) mmol/L Chloride 100 (98-107) mmol/L Carbon Dioxide 27 (22-30) mmol/L BUN 32 H (9-20) mg/dL Creatinine 1.02 (0.66-1.25) mg/dL Glucose 118 H (74-99) mg/dL Calcium 10.3 H (8.4-10.2) mg/dL Adrenal panel 01/17/18 Range/Units 17:20 Sodium 141 (137-145) mmol/L Potassium 3.6 (3.5-5.1) mmol/L Chloride 100 (98-107) mmol/L Carbon Dioxide 27 (22-30) mmol/L BUN 32 H (9-20) mg/dL Creatinine 1.02 (0.66-1.25) mg/dL Glucose 118 H (74-99) mg/dL Calcium 10.3 H (8.4-10.2) mg/dL Total Bilirubin 0.5 (0.2-1.3) mg/dL AST 32 (17-59) U/L ALT 49 (21-72) U/L Alkaline Phosphatase 71 (38-126) U/L Total Protein 7.6 (6.3-8.2) g/dL Albumin 4.7 (3.5-5.0) g/dL Assessment and Plan Assessment: Impression Present on admission nausea vomiting diarrhea poor oral intake likely due to gastroenteritis History of multiple sclerosis Seizure disorder History of opiate withdrawals 2017 Depressive anxiety disorder Plan IV fluid bolus 1 now then IV down to 75 an hour Clear liquid diet No evidence of an acute surgical abdomen Will follow with you with further surgical recommendations PPI as ordered Since "stool for culture and occult blood DVT and GI prophylaxis Surgical consultation note dictated for Dr. Roman The above impression and plan of care have been discussed and directed by signing physician. Alma Red nurse practitioner acting as scribe for signing physician. <Ted Rosario - Last Filed: 01/18/18 21:20> Surgical - Exam Vital Signs Temp Pulse Resp BP Pulse Ox 98.0 F 73 18 114/70 92 L 01/17/18 15:53 01/17/18 15:53 01/17/18 15:53 01/17/18 15:53 01/17/18 15:53 Results - Labs 01/17/18 17:20 01/17/18 17:20 Abnormal Lab Results - Last 24 Hours (Table) 01/17/18 01/18/18 01/18/18 Range/Units 17:20 05:51 07:10 POC Glucose (mg/dL) 152 H (75-99) mg/dL Hemoglobin A1c 6.8 H (4.0-6.0) % Urine Protein Trace H (Negative) Urine Ketones 1+ H (Negative) 01/18/18 01/18/18 Range/Units 11:28 16:38 POC Glucose (mg/dL) 115 H 119 H (75-99) mg/dL Hemoglobin A1c (4.0-6.0) % Urine Protein (Negative) Urine Ketones (Negative) Microbiology - Last 24 Hours (Table) 01/18/18 07:11 Stool Culture - Preliminary Stool Diabetes panel 01/17/18 Range/Units 17:20 Hemoglobin A1c 6.8 H (4.0-6.0) % Assessment and Plan Assessment: As above.Patient with ongoing symptoms of nausea and vomiting. Continue IV hydration and an antacid use. If symptoms persist possible upper endoscopy. Trial of clear liquids.We'll follow with you.
[2018-01-18] MEDS: INSULIN ASPART 100 UNIT/ML 1 ML 10 ML VIAL SQ SCH ×4 (09:06→20:32)
[2018-01-18] MEDS: IBUPROFEN 800 MG TAB PO SCH ×3 (09:07→22:55)
[2018-01-18] MEDS: PERAMPANEL 6 MG PO SCH (09:12)
[2018-01-18] MEDS: PANTOPRAZOLE 40 MG/10 ML VIAL IVP SCH (10:00)
[2018-01-18 11:29] LABS: Glucose,Whole Blood 115 mg/dL (75-99)
[2018-01-18 11:51] VITALS: BMI 33.6
[2018-01-18] MEDS: LISINOPRIL-HCTZ 10-12.5 MG 1 EACH TAB PO SCH (12:34)
[2018-01-18 16:39] LABS: Glucose,Whole Blood 119 mg/dL (75-99)
--- NOTE | 2018-01-18 17:47 | HP ---
HISTORY AND PHYSICAL CHIEF COMPLAINT: This patient is a 52-year-old white male with worsening seizure disorder with progressive vomiting and dehydration for 2 weeks and severe diarrhea to the point where he had 4-5 seizures a day and he normally has no seizures. He was admitted for status epilepticus and dehydration with progressive vomiting. He was given a loading bolus of Depakote on admission and progressive workup for vomiting will be done. EEG is pending. PAST MEDICAL HISTORY: 1. Chest pain. 2. Diabetes mellitus. 3. GERD. 4. Memory impairment. 5. Neurology disorder. 6. Osteoarthritis. 7. Seizure disorder. 8. Multiple sclerosis. 9. Back surgery. 10.Heart catheterization. 11.Tonsillectomy. 12.Spinal cord stimulator. 13.Cervicolumbar spine. 14.VNS unit, left chest. FAMILY MEDICAL HISTORY: Father with COPD and hypertension. Father with coronary artery disease and myocardial infarction. HOME MEDICINES: 1. Metformin. 2. Motrin. 3. Cymbalta. 4. Depakote. 5. Vimpat. 6. Testosterone. 7. Baclofen. 8. Aspirin. 9. Humalog. 10.Lisinopril. 11.Fycompa. ALLERGIES: 1. PENICILLINS. 2. COMPAZINE. 3. WELLBUTRIN. 4. AMANTADINE. PHYSICAL EXAMINATION: Vital signs are reviewed. He is overweight. BMI is over 40. HEENT/OPHTHALMOLOGIC: Pupils equal, round, reactive to light and accommodation. CARDIOVASCULAR: S1, S2. LUNGS: Clear. INTEGUMENT: Dry skin turgor. HEMATOLOGY: Negative Homans. PSYCH: Fair mood and affect. Labs are reviewed. ASSESSMENT: 1. Acute status epilepticus. 2. Multiple sclerosis. He is on Ocrevus infusions every 3 to 6 months. 3. Breakthrough seizures despite Vimpat and Depakote. Depakote level is low. He was given a bolus dose. Will check his Depakote level tomorrow. 4. He has a vagus nerve stimulator for management of his seizures. EEG is being ordered. 5. Workup for progressive nausea and vomiting. MMODL / IJN: [id number] /
[2018-01-18 20:29] LABS: Glucose,Whole Blood 94 mg/dL (75-99)
[2018-01-19] MEDS: SODIUM CHLORIDE 0.9% 1,000 ML IV SCH ×3 (05:55→17:47)
--- NOTE | 2018-01-19 06:52 | XR ---
EXAMINATION TYPE: XR abdomen 2V , 4 VIEWS DATE OF EXAM ORDERED: 01/19/2018 HISTORY: Vomiting and diarrhea. COMPARISON: None. FINDINGS: There has been a previous interpedicular fusion at L5-S1. There is a pain stimulator in pl rick in the left lower quadrant. The lung bases are clear. Within the abdomen, the abdominal gas pattern is within normal limits. There is no evidence of obstru ction or free air. There are multiple phleboliths within the pelvis. There is an amorphous calcificat ion overlying the lower pole of the left kidney. This may represent a renal calculus. IMPRESSION: 1. NO EVIDENCE OF OBSTRUCTION. 2. I CANNOT EXCLUDE A LEFT LOWER POLE RENAL CALCULUS.
[2018-01-19] MEDS: ONDANSETRON 4 MG/2 ML VIAL IVP PRN ×3 (07:40→20:44)
[2018-01-19 07:51] LABS: Glucose,Whole Blood 123 mg/dL (75-99)
[2018-01-19] MEDS: INSULIN ASPART 100 UNIT/ML 1 ML 10 ML VIAL SQ SCH ×4 (07:56→20:27)
[2018-01-19] MEDS: metFORMIN 500 MG TAB PO SCH ×2 (07:57→17:25)
[2018-01-19] MEDS: PANTOPRAZOLE 40 MG/10 ML VIAL IVP SCH (07:57)
[2018-01-19] MEDS: DIVALPROEX ER 500 MG TAB.ER.24H PO SCH ×2 (07:57→15:58)
[2018-01-19] MEDS: IBUPROFEN 800 MG TAB PO SCH ×3 (07:57→22:21)
[2018-01-19] MEDS: LACOSAMIDE 150 MG TABLET PO SCH ×2 (07:57→20:46)
[2018-01-19] MEDS: ASPIRIN 81 MG PO SCH (07:57)
[2018-01-19] MEDS: DULoxetine HCL 60 MG CAPSULE.DR PO SCH ×2 (07:57→20:46)
[2018-01-19] MEDS: BACLOFEN 10 MG TAB PO PRN ×2 (08:05→15:59)
[2018-01-19] MEDS: PERAMPANEL 6 MG PO SCH (08:16)
[2018-01-19 11:44] LABS: Glucose,Whole Blood 120 mg/dL (75-99)
[2018-01-19] MEDS: LISINOPRIL-HCTZ 10-12.5 MG 1 EACH TAB PO SCH (12:42)
--- NOTE | 2018-01-19 12:52 | P.CONS ---
History of Present Illness - Reason for Consult Consult date: 01/18/18 Nausea, vomiting, loose stool Requesting physician: Bruce Khan - Chief Complaint Nausea, vomiting, loose stool - History of Present Illness Very pleasant 52-year-old male with a medical history significant for diabetes mellitus, GERD, osteoarthritis and a history of seizure disorders who presented to the hospital with a one-week history of nausea, vomiting and loose bowel movements. The patient reports that for the past 7 days he has been passing 2- 3 loose bowel movements daily. She reports associated nausea and vomiting. He denies any hematemesis, hematochezia or melena. The patient does report dark colored bowel movements but his does state that she had been given him Pepto-Bismol to help settle his stomach. He denies any sick contacts, or unusual foods, new medications or travel. On presentation liver enzymes were found to be normal and hemoglobin was stable at 13. The patient has no prior history of colonoscopy. Review of Systems REVIEW OF SYSTEMS: CONSTITUTIONAL: Denies any fevers, chills, weight change or fatigue. CARDIOVASCULAR: Denies any chest pain, palpitations high or low blood pressures RESPIRATORY: Denies any shortness of breath, hemoptysis or cough. GENITOURINARY: No dysuria or hematuria. MUSCULOSKELETAL: No weakness reported. SKIN: Denies any new rashes or lesions, jaundice or pallor. PSYCHIATRIC: Denies any depression or anxiety. NEUROLOGY: Denies headache, denies any new focal deficits. EARS/NOSE/THROAT: No recent hearing change, congestion, nasal discharge or sore throat. EYES: No pain in eyes, discharge or change in vision. GASTROINTESTINAL: As per HPI. Past Medical History Past Medical History: Chest Pain / Angina, Diabetes Mellitus, Eye Disorder, GERD /Reflux, Memory Impairment, Musculoskeletal Disorder, Neurologic Disorder, Osteoarthritis (OA), Seizure Disorder Additional Past Medical History / Comment(s): 01-17-18 pt wants a flu vaccine before discharge. other pmh: MS, active lesions in brain.stress test, lt kidney stone, cataracts, "macular degeneration", enlarged heart. History of Any Multi-Drug Resistant Organisms: None Reported Past Surgical History: Back Surgery, Heart Catheterization, Tonsillectomy Additional Past Surgical History / Comment(s): c spine, lumbar. spinal cord stimulator. VNS unit left chest. Past Anesthesia/Blood Transfusion Reactions: No Reported Reaction Smoking Status: Never smoker - Past Family History Mother Family Medical History: COPD, Hypertension Father Family Medical History: Coronary Artery Disease (CAD), Myocardial Infarction (PA ) Additional Family Medical History / Comment(s): cabg Medications and Allergies Home Medications Medication Instructions Recorded Confirmed Type metFORMIN HCL [Glucophage] 1,000 mg PO BID #60 tab 04/24/16 01/17/18 Rx Ibuprofen [Motrin] 800 mg PO TID 05/02/16 01/17/18 History DULoxetine HCL [Cymbalta] 60 mg PO BID 08/18/16 01/17/18 History Divalproex ER [Depakote ER] 500 mg PO Q8H 03/18/17 01/17/18 History Lacosamide [Vimpat] 150 mg PO BID 03/18/17 01/17/18 History Testosterone [Androgel 1.62% Gel 2 applic TOPICAL Q48H 03/18/17 01/17/18 History Pump] Aspirin 81 mg PO DAILY 11/14/17 01/17/18 History Baclofen 10 mg PO TID PRN 11/14/17 01/17/18 History INSULIN LISPRO (HumaLOG) [HumaLOG] See Protocol SQ ACHS 11/14/17 01/17/18 History Lisinopril-Hctz 10-12.5 mg 1 tab PO AC-LUNCH 11/14/17 01/17/18 History [Zestoretic 10-12.5] Perampanel [Fycompa] 6 mg PO DAILY 11/14/17 01/17/18 History Allergies Allergy/AdvReac Type Severity Reaction Status Date / Time Penicillins AdvReac Severe Swelling Verified 01/17/18 16:42 prochlorperazine AdvReac Severe Hallucinati Verified 01/17/18 16:42 [From Compazine] ons prochlorperazine edisylate AdvReac Severe Hallucinati Verified 01/17/18 16:42 [From Compazine] ons prochlorperazine maleate AdvReac Severe Hallucinati Verified 01/17/18 16:42 [From Compazine] ons bupropion HCl AdvReac Intermediate Nausea & Verified 01/17/18 16:42 [From Wellbutrin] Vomiting gabapentin [From Neurontin] AdvReac Intermediate Nausea & Verified 01/17/18 16: 42 Vomiting amantadine AdvReac Unknown Nausea & Verified 01/17/18 16:42 Vomiting Physical Exam Vitals: Vital Signs Temp Pulse Resp BP Pulse Ox 01/18/18 21:00 98.1 F 60 16 115/67 94 L 01/18/18 11:33 98.4 F 72 16 133/78 98 01/18/18 05:00 97.5 F L 75 16 128/73 96 Intake and Output 01/18/18 01/18/18 01/19/18 14:59 22:59 06:59 Intake Total 50 900 Balance 50 900 Intake: Intake, IV Titration 300 Amount Sodium Chloride 0.9% 1, 300 000 ml @ 75 mls/hr IV . [id number] [facility] Rx#:[id number] Oral 50 600 Other: # Voids 3 3 # Bowel Movements 1 Weight 112.5 kg On physical examination, patient appears comfortable in no apparent distress. HEAD: Normocephalic, atraumatic. EYES: No scleral icterus. No conjunctival injection. MOUTH: No lesions, tongue midline. NECK: Trachea midline, no gross abnormalities. CHEST: Clear to auscultation with no wheezing or rhonchi appreciated. HEART: Regular rate and rhythm. ABDOMEN: Soft, obese. Bowel sounds are positive. No organomegaly. No guarding or rigidity. EXTREMITIES: No pedal edema. SKIN: No rashes, no jaundice. NEUROLOGIC: Alert and oriented x3. No focal deficits. Results CBC & Chem 7: 01/17/18 17:20 01/17/18 17:20 Labs: Abnormal Lab Results - Last 24 Hours (Table) 01/17/18 01/18/18 01/18/18 Range/Units 17:20 05:51 07:10 POC Glucose (mg/dL) 152 H (75-99) mg/dL Hemoglobin A1c 6.8 H (4.0-6.0) % Urine Protein Trace H (Negative) Urine Ketones 1+ H (Negative) 01/18/18 01/18/18 Range/Units 11:28 16:38 POC Glucose (mg/dL) 115 H 119 H (75-99) mg/dL Hemoglobin A1c (4.0-6.0) % Urine Protein (Negative) Urine Ketones (Negative) Microbiology - Last 24 Hours (Table) 01/18/18 07:11 Stool Culture - Preliminary Stool Assessment and Plan (1) Nausea vomiting and diarrhea Narrative/Plan: Patient reporting seven-day history of loose bowel movements, nausea and vomiting. Given the acuity of the patient's symptoms is likely represents a viral or bacterial gastroenteritis. The patient reports feeling somewhat better after presenting to the hospital and receiving symptomatic treatment as well as IV fluid hydration. Stool studies have been negative for blood, Clostridium difficile and lactoferrin. Current Visit: Yes Status: Acute Code(s): R11.2 - NAUSEA WITH VOMITING, UNSPECIFIED; R19.7 - DIARRHEA, UNSPECIFIED SNOMED Code(s): 8666059 Plan: Supportive care Okay for diet as tolerated (have recommended low lactose, low residual to the patient and his in the acute setting given his symptoms) Continue IV fluid hydration Continue symptomatic treatment with Zofran as needed Continue Protonix therapy No signs or symptoms of GI bleed, dark stool is likely because of the patient's use of Pepto-Bismol. He also had testing with a stool which was negative for occult blood. Patient will need colonoscopy in the outpatient setting Thank you for allowing us to participate in the care of this patient, we will continue to follow
[2018-01-19] MEDS ORDERED: TESTOSTERONE TOPICAL SCH (13:00)
--- NOTE | 2018-01-19 14:42 | P.PN ---
Subjective Progress Note Date: 01/19/18 CHIEF COMPLAINT: Abdominal pain and diarrhea HISTORY OF PRESENT ILLNESS: The patient is a 52-year-old gentleman who reports not having a colonoscopy in over 10 years. He comes in with 2 week history of bilateral upper abdominal discomfort. He reports having loose stools at least twice daily. He denies any blood in the stools. He has not had previous CT of the abdomen the pelvis. Imaging studies: X-ray has been inconclusive. He reports nausea. He also reports poor appetite. He's not been able to eat for over 2 weeks. He has baseline history of seizure disorder. His is at bedside and also confirms low oral intake. He confirms exposure to sick contacts of his daughter during the time of the onset of his symptoms. PHYSICAL EXAM: VITAL SIGNS: Currently stable. GENERAL: Well-developed in no acute distress. HEENT: No sclera icterus. Extraocular movements grossly intact. Moist buccal mucosa. Head is atraumatic, normocephalic. Hears conversational speech. No nasal drainage. NECK: Supple without lymphadenopathy. CHEST: Non-labored respirations and equal bilateral excursions. CARDIOVASCULAR: Regular rate with regular rhythm. Palpable 2+ radial pulses. ABDOMEN: Soft. Minimal tenderness bilateral upper abdomen. No peritonitis. MUSCULOSKELETAL: No clubbing, cyanosis or edema. NEUROLOGIC: No focal or lateralizing signs. Cranial nerves II through XII grossly intact. PSYCH: Appropriate affect. Alert and oriented to person, place and time. SKIN: Well perfused. Good skin turgor. LABS: Reviewed STUDIES: Reviewed. ASSESSMENT: 1. Diarrhea of infectious etiology, C. diff excluded 2. Dehydration with nausea 3. Seizure disorder PLAN: 1. GI consult also reviewed and agree with colonoscopy. 2. He has started soft diet and reports low appetite. 3. Recommend additional IV fluid hydration given long-standing problems and limited oral intake and chronic diarrhea. 4. Abdominal x-ray has been inconclusive and recommend computed tomography scan which may be obtained without oral IV contrast as he uses metformin Objective - Vital Signs Vital signs: Vital Signs Temp 97.9 F 01/19/18 05:00 Pulse 60 01/19/18 05:00 Resp 16 01/19/18 05:00 BP 143/66 01/19/18 05:00 Pulse Ox 98 01/19/18 05:00 Intake & Output 01/18/18 01/19/18 01/19/18 18:59 06:59 18:59 Intake Total 50 1490 Output Total 1 Balance 50 1490 -1 Weight 112.5 kg Intake: Intake, IV Titration 300 Amount Sodium Chloride 0.9% 1, 300 000 ml @ 75 mls/hr IV . [id number] [facility] Rx#:[id number] Oral 50 1190 Output: Stool 1 Other: Voiding Method Toilet Toilet # Voids 3 # Bowel Movements 1 - Labs CBC & Chem 7: 01/17/18 17:20 01/17/18 17:20 Labs: Abnormal Lab Results - Last 24 Hours (Table) 01/18/18 01/19/18 01/19/18 Range/Units 16:38 07:47 11:40 POC Glucose (mg/dL) 119 H 123 H 120 H (75-99) mg/dL Microbiology - Last 24 Hours (Table) 01/18/18 07:11 Stool Culture - Preliminary Stool - Imaging and Cardiology Abdominal x-ray: report reviewed, image reviewed (No evidence of bowel obstruction) Assessment and Plan (1) Upper abdominal pain Current Visit: Yes Status: Acute Code(s): R10.10 - UPPER ABDOMINAL PAIN, UNSPECIFIED SNOMED Code(s): 37081153 (2) Nausea vomiting and diarrhea Current Visit: Yes Status: Acute Code(s): R11.2 - NAUSEA WITH VOMITING, UNSPECIFIED; R19.7 - DIARRHEA, UNSPECIFIED SNOMED Code(s): 1620725 (3) Seizure disorder Current Visit: No Status: Acute Code(s): G40.909 - EPILEPSY, UNSP, NOT INTRACTABLE, WITHOUT STATUS EPILEPTICUS SNOMED Code(s): 748808826 (4) Dehydration Current Visit: Yes Status: Acute Code(s): E86.0 - DEHYDRATION SNOMED Code( s): 79532460
--- NOTE | 2018-01-19 16:27 | CT ---
EXAMINATION TYPE: CT abdomen pelvis wo con DATE OF EXAM: 01/19/2018 HISTORY: Nausea, vomiting and diarrhea. CT DLP: 1217 mGycm. Automated Exposure Control for Dose Reduction was Utilized. TECHNIQUE: CT scan of the abdomen and pelvis is performed without oral or IV contrast. COMPARISON: Abdominal radiograph 01/19/2018 FINDINGS: Within the limitations of a non-contrast study, the following observations are made. LUNG BASES: No significant abnormality is appreciated. LIVER/GB: No significant abnormality is appreciated. PANCREAS: No significant abnormality is seen. SPLEEN: No significant abnormality is seen. ADRENALS: No significant abnormality is seen. KIDNEYS: Left inferior pole nonobstructing calculi is evident maximally measuring up to 1.3 cm. No ob structing renal calculus. No additional significant abnormality is seen. BOWEL: Small appendicolith with normal-appearing appendix. Bowel is otherwise unremarkable. GENITAL ORGANS: No gross abnormality seen. LYMPH NODES: No greater than 1cm abdominal or pelvic lymph nodes are appreciated. OSSEOUS STRUCTURES: Evidence of a prior L4 and L5 fusion with L4 left hemilaminectomy. Spinal stimula tor device is present. Evidence of old healed left-sided rib fractures. OTHER: No significant additional abnormality is seen. IMPRESSION: 1. Nonobstructing left-sided renal calculus measuring up to 1.3 cm. 2. No acute intra-abdominal or pelvic process. 3. Postsurgical changes.
[2018-01-19 17:11] LABS: Glucose,Whole Blood 97 mg/dL (75-99)
--- NOTE | 2018-01-19 17:25 | EEG ---
ELECTROENCEPHALOGRAM REPORT DATE OF EE01/18/2018. REFERRING PHYSICIAN: Dr. Bruce Khan. CONSULTING INTERPRETING PHYSICIAN: Dr. Eveline Snyder ELECTROENCEPHALOGRAPHIC EXAMINATION REPORT: INDICATION FOR EXAMINATION: This patient is a 52-year-old male with history of seizure disorder and multiple sclerosis. Patient admitted with breakthrough seizures. AGE: 52. EEG FINDINGS: A routine 21 channel awake digital EEG recording was accomplished utilizing the 10-20 international system with bipolar and referential montages. The background activity in the most alert resting state consists of a low to medium amplitude, fairly well- developed well sustained 7-8 Hz activity over the posterior head regions. This posterior rhythm attenuates to eye opening. There is a small amount of low amplitude 18-20 Hz beta activity seen maximally over the anterior head regions. Muscle and movement artifact was observed on a few occasions during the tracing. Hyperventilation was not performed. Photic stimulation at flash frequencies of 2-30 Hz produced a minimal occipital driving response. No epileptiform discharges were seen. IMPRESSION: This EEG is within normal limits for the patient's age. The EEG failed to reveal any focal, lateralized, or epileptiform abnormalities. Clinical correlation is recommended. MMODL / IJN: [id number] /
[2018-01-19 20:07] LABS: Glucose,Whole Blood 98 mg/dL (75-99)
[2018-01-19] MEDS: KETOROLAC 30 MG/ML 1 ML VIAL IM PRN (22:06)
[2018-01-19 22:10] VITALS: RESP 16
[2018-01-20] MEDS: DIVALPROEX ER 500 MG TAB.ER.24H PO SCH ×2 (00:03→08:18)
[2018-01-20 05:45] VITALS: BP 127/61; PULSE 73; TEMP 97.7
[2018-01-20 06:51] LABS: Glucose,Whole Blood 106 mg/dL (75-99)
[2018-01-20 07:25] LABS: Basophils % (A) 0 %; Eosinophils # (A) 0.1 k/uL (0-0.7); Eosinophils % (A) 2 %; HCT 34.6 % (39.0-53.0); HGB 11.6 gm/dL (13.0-17.5); Lymphocytes # (A) 0.9 k/uL (1.0-4.8); Lymphocytes % (A) 17 %; MCH 31.9 pg (25.0-35.0); MCHC 33.5 g/dL (31.0-37.0); MCV 95.3 fL (80.0-100.0); Mean Platelet Volume 6.8; Monocytes # (A) 0.4 k/uL (0-1.0); Monocytes % (A) 9 %; Neutrophils # (A) 3.5 k/uL (1.3-7.7); Neutrophils % (A) 71 %; Platelet Count 172 k/uL (150-450); RBC 3.63 m/uL (4.30-5.90); RDW 13.2 % (11.5-15.5)
[2018-01-20 07:39] LABS: ALT 47 U/L (21-72); AST 30 U/L (17-59); Albumin 3.6 g/dL (3.5-5.0); Alkaline Phosphatase 50 U/L (38-126); Anion Gap 8 mmol/L; Blood Urea Nitrogen 20 mg/dL (9-20); Calcium 9.2 mg/dL (8.4-10.2); Carbon Dioxide 30 mmol/L (22-30); Chloride 106 mmol/L (98-107); Glucose 103 mg/dL (74-99); Sodium 144 mmol/L (137-145); Total Bilirubin 0.4 mg/dL (0.2-1.3); Total Protein 5.9 g/dL (6.3-8.2)
[2018-01-20] MEDS: INSULIN ASPART 100 UNIT/ML 1 ML 10 ML VIAL SQ SCH ×2 (08:17→12:51)
[2018-01-20] MEDS: ONDANSETRON 4 MG/2 ML VIAL IVP PRN (08:18)
[2018-01-20] MEDS: IBUPROFEN 800 MG TAB PO SCH (08:18)
[2018-01-20] MEDS: ASPIRIN 81 MG PO SCH (08:18)
[2018-01-20] MEDS: PERAMPANEL 6 MG PO SCH (08:19)
[2018-01-20] MEDS: PANTOPRAZOLE 40 MG/10 ML VIAL IVP SCH (08:19)
[2018-01-20] MEDS: DULoxetine HCL 60 MG CAPSULE.DR PO SCH (08:19)
[2018-01-20] MEDS: KETOROLAC 30 MG/ML 1 ML VIAL IM PRN (08:22)
[2018-01-20] MEDS: BACLOFEN 10 MG TAB PO PRN (08:30)
[2018-01-20] MEDS: LACOSAMIDE 150 MG TABLET PO SCH (08:30)
--- NOTE | 2018-01-20 09:40 | P.PN ---
Subjective Progress Note Date: 01/20/18 CHIEF COMPLAINT: Abdominal pain and diarrhea HISTORY OF PRESENT ILLNESS: The patient is a 52-year-old gentleman was admitted secondary to diarrhea and nausea and vomiting. His symptoms have progressed over 2 weeks. Yesterday, he reported generalized malaise including persistent nausea. An additional 2 L of normal saline was given yesterday. Today he reports feeling much better. He is tolerating diet. CT of the abdomen and pelvis was also obtained. Overall symptoms has improved. PHYSICAL EXAM: VITAL SIGNS: Currently stable. GENERAL: Well-developed in no acute distress. HEENT: No sclera icterus. Extraocular movements grossly intact. Moist buccal mucosa. Head is atraumatic, normocephalic. Hears conversational speech. No nasal drainage. NECK: Supple without lymphadenopathy. CHEST: Non-labored respirations and equal bilateral excursions. CARDIOVASCULAR: Regular rate with regular rhythm. Palpable 2+ radial pulses. ABDOMEN: Soft. Nontender. Nondistended. MUSCULOSKELETAL: No clubbing, cyanosis or edema. NEUROLOGIC: No focal or lateralizing signs. Cranial nerves II through XII grossly intact. PSYCH: Appropriate affect. Alert and oriented to person, place and time. SKIN: Well perfused. Good skin turgor. LABS: Reviewed STUDIES: Reviewed. ASSESSMENT: 1. Diarrhea of infectious etiology, C. diff excluded 2. Dehydration with nausea 3. Seizure disorder 4. Kidney stones. PLAN: 1. CT of the abdomen and pelvis reviewed demonstrating no evidence of inflammation of the colon. Kidney stones were identified however. 2. Patient cleared from a surgical standpoint for discharge after rehydration. Objective - Vital Signs Vital signs: Vital Signs Temp 97.7 F 01/20/18 05:00 Pulse 73 01/20/18 05:00 Resp 16 01/20/18 05:00 BP 127/61 01/20/18 05:00 Pulse Ox 98 01/20/18 05:00 Intake & Output 01/19/18 01/20/18 01/20/18 18:59 06:59 18:59 Intake Total 1310 Output Total 1 301 Balance -1 1009 Intake: Oral 1310 Output: Urine 300 Stool 1 1 Other: Voiding Method Toilet Toilet Toilet # Voids 1 - Labs CBC & Chem 7: 01/20/18 05:57 01/20/18 05:57 Labs: Abnormal Lab Results - Last 24 Hours (Table) 01/19/18 01/20/18 01/20/18 Range/Units 11:40 05:57 05:57 RBC 3.63 L (4.30-5.90) m/uL Hgb 11.6 L (13.0-17.5) gm/dL Hct 34.6 L (39.0-53.0) % Lymphocytes # 0.9 L (1.0-4.8) k/uL Glucose 103 H (74-99) mg/dL POC Glucose (mg/dL) 120 H (75-99) mg/dL Total Protein 5.9 L (6.3-8.2) g/dL 01/20/18 Range/Units 06:49 RBC (4.30-5.90) m/uL Hgb (13.0-17.5) gm/dL Hct (39.0-53.0) % Lymphocytes # (1.0-4.8) k/uL Glucose (74-99) mg/dL POC Glucose (mg/dL) 106 H (75-99) mg/dL Total Protein (6.3-8.2) g/dL Assessment and Plan (1) Upper abdominal pain Current Visit: Yes Status: Acute Code(s): R10.10 - UPPER ABDOMINAL PAIN, UNSPECIFIED SNOMED Code(s): 98425305 (2) Nausea vomiting and diarrhea Current Visit: Yes Status: Acute Code(s): R11.2 - NAUSEA WITH VOMITING, UNSPECIFIED; R19.7 - DIARRHEA, UNSPECIFIED SNOMED Code(s): 8443840 (3) Seizure disorder Current Visit: No Status: Acute Code(s): G40.909 - EPILEPSY, UNSP, NOT INTRACTABLE, WITHOUT STATUS EPILEPTICUS SNOMED Code(s): 052075278 (4) Dehydration Current Visit: Yes Status: Acute Code(s): E86.0 - DEHYDRATION SNOMED Code( s): 35083592
[2018-01-20] MEDS ORDERED: SODIUM CHLORIDE 0.9% 1,000 ML IV ONE (09:41)
--- NOTE | 2018-01-20 10:02 | PN ---
PROGRESS NOTE SUBJECTIVE: This is a white male. He has been given a bolus of Depakote. His Depakote could be increased to 4 times a day. Waiting for any further workup from Neurology prior to going home tomorrow. He is not eating and drinking yet. He still has diarrhea. Stool culture is negative. We will possibly give him Questran to go home with. He continues to improve but still has diarrhea. Waiting for the stool culture to come back. CARDIOVASCULAR: S1, S2. Lungs are clear. GI: Soft, slightly increased bowel sounds. HEMATOLOGY: Negative Homans. ASSESSMENT: 1. Diarrhea. 2. Diabetes mellitus. 3. Hypertension. 4. Seizure disorder. Please see further orders. MMODL / IJN: [id number] /
[2018-01-20 10:57] LABS: Glucose,Whole Blood 131 mg/dL (75-99)
[2018-01-20] MEDS ORDERED: INFLUENZA VACCINE (6 MOS+) 60 MCG/0.5 ML SYRINGE IM ONE (12:00)
[2018-01-20] MEDS: LISINOPRIL-HCTZ 10-12.5 MG 1 EACH TAB PO SCH (12:51)
--- NOTE | 2018-01-29 19:20 | P.PN ---
Subjective Progress Note Date: 01/18/18 This patient is a 52-year-old male who is being followed for a known history of multiple sclerosis and seizure disorder. The patient had a subtherapeautic depakote level on admission and this could have coused a breakthrough seizure. He also has a hsitory of Multiple Sclerosis which is stable at this time and not showing signs of acute exacerbation. The patient would benefit from physical therapy and will await their further recommendations. He is making good progress and he has not had any further seizure activity since admission. He completed a routine EEG today which was reviewed and is normal for his age. There was no evidence of active seizure focus. The patient also had a VNS stimulator to help control his sizures. The stimulation is functional and has not be triggered recently. We will continue current treatment plans for this patiient. Objective - Vital Signs Vital signs: Vital Signs Temp 98.4 F 01/18/18 11:33 Pulse 72 01/18/18 11:33 Resp 16 01/18/18 11:33 BP 133/78 01/18/18 11:33 Pulse Ox 98 01/18/18 11:33 Intake & Output 01/18/18 01/18/18 01/19/18 06:59 18:59 06:59 Intake Total 2260 50 Balance 2260 50 Weight 112.5 kg Intake: Intake, IV Titration 900 Amount Sodium Chloride 0.9% 1, 900 000 ml @ 75 mls/hr IV . [id number] [facility] Rx#:[id number] Oral 1360 50 Other: Voiding Method Toilet # Voids 3 # Bowel Movements 1 - Exam Physical examination: PHYSICAL EXAMINATION: Patient is resting comfortably in bed. VITAL SIGNS: Blood pressure is [133/78]. Heart rate is [72]. Respiration is [16] . Temperature is [98.4]. HEENT: Head is atraumatic, neck is supple, there were no carotid bruits. CHEST: Lungs are clear to auscultation and percussion. CARDIAC: S1, S2 normal rate and rhythm. There is no murmur. ABDOMEN: Soft and nontender. Bowel sounds are present. EXTREMITIES: There is no pedal edema. Peripheral pulses are present. Neurological examination: Patient's neurological examination is unchanged from yesterday. - Labs CBC & Chem 7: 01/20/18 05:57 01/20/18 05:57 Labs: Abnormal Lab Results - Last 24 Hours (Table) 01/17/18 01/17/18 01/18/18 Range/Units 17:20 20:06 05:51 POC Glucose (mg/dL) 110 H (75-99) mg/dL Hemoglobin A1c 6.8 H (4.0-6.0) % Urine Protein Trace H (Negative) Urine Ketones 1+ H (Negative) 01/18/18 01/18/18 01/18/18 Range/Units 07:10 11:28 16:38 POC Glucose (mg/dL) 152 H 115 H 119 H (75-99) mg/dL Hemoglobin A1c (4.0-6.0) % Urine Protein (Negative) Urine Ketones (Negative) Microbiology - Last 24 Hours (Table) 01/18/18 07:11 Stool Culture - Preliminary Stool Assessment and Plan Plan: This patient is a 52-year-old male admitted with history of multiple sclerosis and seizure disorder. Patient had a breakthrough seizure and was advised admission to the hospital for further evaluation. He is currently taking combination of Depakote and Vimpat for seizure prophylaxis. A stat Depakote level was done today and is subtherapeutic at 37.1. We loaded the patient with IV Depacon 1 g IV piggyback. We will check his anticonvulsant blood levels tomorrow for further evaluation and management. Patient has a history of advanced primary progressive multiple sclerosis. It is undergoing treatment for this condition and is taking Ocrevus infusions every 3-6 months. Patient also has a vagus nerve stimulator for management of his seizures which is being monitored monthly according to the patient. We will continue current treatment does outlined above for his seizure disorder and will recheck his levels tomorrow morning. We will obtain routine EEG for further assessment as well. The patient completed an EEG today which was reviewed and is normal for his age. We reviewed these results today with the patient and he has had no further spells to report. So overall prognosis at this time remains guarded. We will continue with seizure precautions as well and would recommend physical therapy consultation for history of his MS. His overall prognosis at this time remains guarded. We will continue close neurological follow-up for the patient during this admission.
--- NOTE | 2018-01-29 19:30 | P.PN ---
Subjective Progress Note Date: 01/19/18 This patient is a 52-year-old male who is being followed for a known history of multiple sclerosis and seizure disorder. He continues to do well with no further breakthrough seizures reported. As noted his EEG test came back normal for his age with no seizure focus noted. His Depakote level is in the therapeutic range now and he should be careful to ckeck his AED levels on a regular basis to maintain good seizure control. We will contiune close neurologic monitoring of this patient during our [facility] admission. His overall prognosis remain gurarded Objective - Vital Signs Vital signs: Vital Signs Temp 98.0 F 01/19/18 21:00 Pulse 65 01/19/18 21:00 Resp 16 01/19/18 21:00 BP 112/61 01/19/18 21:00 Pulse Ox 98 01/19/18 21:00 Intake & Output 01/19/18 01/19/18 01/20/18 06:59 18:59 06:59 Intake Total 1490 950 Output Total 1 300 Balance 1490 -1 650 Intake: Intake, IV Titration 300 Amount Sodium Chloride 0.9% 1, 300 000 ml @ 75 mls/hr IV . [id number] SANTOS Rx#:[id number] Oral 1190 950 Output: Urine 300 Stool 1 Other: Voiding Method Toilet Toilet - Exam Physical examination: PHYSICAL EXAMINATION: Patient is resting comfortably in bed. VITAL SIGNS: Blood pressure is [125/60]. Heart rate is [63]. Respiration is [18] . Temperature is [98.1]. HEENT: Head is atraumatic, neck is supple, there were no carotid bruits. CHEST: Lungs are clear to auscultation and percussion. CARDIAC: S1, S2 normal rate and rhythm. There is no murmur. ABDOMEN: Soft and nontender. Bowel sounds are present. EXTREMITIES: There is no pedal edema. Peripheral pulses are present. Neurological examination: Patient's neurological examination is unchanged from yesterday. His overall exam remains stable. - Labs CBC & Chem 7: 01/20/18 05:57 01/20/18 05:57 Labs: Abnormal Lab Results - Last 24 Hours (Table) 01/19/18 01/19/18 Range/Units 07:47 11:40 POC Glucose (mg/dL) 123 H 120 H (75-99) mg/dL Assessment and Plan Plan: This patient is a 52-year-old male admitted with history of multiple sclerosis and seizure disorder. Patient had a breakthrough seizure and was advised admission to the hospital for further evaluation. He is currently taking combination of Depakote and Vimpat for seizure prophylaxis. A stat Depakote level was done today and is subtherapeutic at 37.1. We loaded the patient with IV Depacon 1 g IV piggyback. We will check his anticonvulsant blood levels tomorrow for further evaluation and management. Patient has a history of advanced primary progressive multiple sclerosis. It is undergoing treatment for this condition and is taking Ocrevus infusions every 3-6 months. Patient also has a vagus nerve stimulator for management of his seizures which is being monitored monthly according to the patient. We will continue current treatment does outlined above for his seizure disorder and will recheck his levels tomorrow morning. We will obtain routine EEG for further assessment as well. The EEG was completed and did come back normal for his age. The patient completed an EEG today which was reviewed and is normal for his age. We reviewed these results today with the patient and he has had no further spells to report. So overall prognosis at this time remains guarded. We will continue with seizure precautions as well and would recommend physical therapy consultation for history of his MS. His overall prognosis at this time remains guarded. We will continue close neurological follow-up for the patient during this admission.
== END 2018-01-20 14:11 | disposition home or self-care (01) ==
LOC: 3NMEDONC 15:29
PROVIDERS: ADMIT Family Medicine; ATTEND Family Medicine
DX: G40.901 Epilepsy, unspecified, not intractable, with status epilepticus (principal); E11.9 Type 2 diabetes mellitus without complications; E86.0 Dehydration; F41.9 Anxiety disorder, unspecified; G35 Multiple sclerosis; H35.30 Unspecified macular degeneration; Z23 Encounter for immunization; I11.9 Hypertensive heart disease without heart failure; H26.9 Unspecified cataract; I25.10 Atherosclerotic heart disease of native coronary artery without angina pectoris; K21.9 Gastro-esophageal reflux disease without esophagitis; A09 Infectious gastroenteritis and colitis, unspecified; Z79.82 Long term (current) use of aspirin; Z79.84 Long term (current) use of oral hypoglycemic drugs; Z82.49 Family history of ischemic heart disease and other diseases of the circulatory system; Z82.5 Family history of asthma and other chronic lower respiratory diseases; Z87.442 Personal history of urinary calculi
CPT/HCPCS: 96376 ×3; 96361 ×3; 96365; 96372 ×3; 96375; 95816; 80164 ×2; 80053 ×2; 83605; 85025 ×2; 82272; 81003; 87324; 80339; 87045; 83630; 87046; 87502; 83036; 71046; 74019; 74176; 90686; G0378 ×4; G0379; G0008; J2405 ×3; J1885 ×3; C9113 ×3

== ENCOUNTER → 2018-03-29 | Outpatient (CLI) | payer BC ==
[2018-03-29 14:47] LABS: HCT 37.8 % (39.0-53.0); MCH 31.4 pg (25.0-35.0); MCHC 31.8 g/dL (31.0-37.0); MCV 98.7 fL (80.0-100.0); Mean Platelet Volume 7.4; Platelet Count 166 k/uL (150-450); RBC 3.83 m/uL (4.30-5.90); RDW 13.6 % (11.5-15.5); WBC 6.5 k/uL (3.8-10.6)
[2018-03-29 19:48] LABS: Albumin 4.5 g/dL (3.80-4.90); Albumin/Globulin Ratio 2.25 (1.20-2.10); Calcium 9.4 mg/dL (8.7-10.3); Potassium 4.7 mmol/L (3.5-5.5); Total Bilirubin 0.3 mg/dL (0.2-1.2); Total Protein 6.5 g/dL (6.2-8.2)
== END | disposition home or self-care (01) ==
LOC: LABWHC1 13:30
PROVIDERS: ATTEND Psychiatry & Neurology Pain Medicine
DX: Z51.81 Encounter for therapeutic drug level monitoring (principal); G35 Multiple sclerosis
CPT/HCPCS: 36415; 80053; 85027

== ENCOUNTER → 2018-06-14 | Outpatient (CLI) | payer BC ==
--- NOTE | 2018-06-14 14:50 | US ---
EXAMINATION TYPE: US carotid duplex BILAT DATE OF EXAM: 06/14/2018 COMPARISON: NONE CLINICAL HISTORY: I63.9 CVA. EXAM MEASUREMENTS: RIGHT: Peak Systolic Velocity (PSV) cm/sec ----- Right CCA: 105.6 ----- Right ICA: 111.9 ----- Right ECA: 131.9 ICA/CCA ratio: 1.1 RIGHT: End Diastole cm/sec ----- Right CCA: 31.1 ----- Right ICA: 39.9 ----- Right ECA: 23.6 LEFT: Peak Systolic Velocity (PSV) cm/sec ----- Left CCA: 106.1 ----- Left ICA: 103.8 ----- Left ECA: 131.0 ICA/CCA ratio: 1.0 LEFT: End Diastole cm/sec ----- Left CCA: 26.2 ----- Left ICA: 33.1 ----- Left ECA: 28.3 VERTEBRALS (direction of flow): Right Vertebral: Antegrade Left Vertebral: Antegrade Rhythm: Normal Elevated velocities: right proximal ECA and left proximal ECA, no significant stenosis. Grayscale, color Doppler, spectral Doppler imaging performed of the carotid arteries. Waveform analys is does not show significant stenosis in the internal carotid arteries. IMPRESSION: No hemodynamic significant stenosis of the proximal internal carotid arteries bilaterall y by Doppler criteria, an indirect measurement of carotid stenosis
--- NOTE | 2018-06-14 14:51 | FL ---
EXAMINATION TYPE: FL barium swallow w video DATE OF EXAM: 06/14/2018 COMPARISON: NONE HISTORY: Multiple sclerosis, food getting stuck in the back of oral pharynx TECHNIQUE: Fluoroscopy. FINDINGS: Fluoroscopic guidance was provided for the procedure performed in conjunction with the [facility] [place] pathology department. Please see complete report forthcoming from the Speech Pathology departmen t. Various consistencies from thin liquid to solids were administered. Fluoroscopy time 1 minute 28 second Number of images: 0. No aspiration or penetration was evident. No significant pooling was observed in the vallecula. There is some slight hesitancy with the bolus formation and transit during swallowing. IMPRESSION: 1. No significant abnormality to account for patient's symptoms. 2. Some hesitancy of transit may be present. Please also see speech pathology department report.
--- NOTE | 2018-06-14 16:08 | CT ---
EXAMINATION TYPE: CT brain wo/w con DATE OF EXAM: 06/14/2018 COMPARISON: 06/04/2017 INDICATION: Left sided weakness and dysphagia DLP: 2033.90 mGycm, Automated exposure control for dose reduction was used. CONTRAST: None CT of the brain is performed utilizing 3 mm thick sections through the posterior fossa and 3 mm thick sections through the remaining calvarium. Study is performed within 24 hours of arrival to the hosp ital. No abnormal hyperdensity is present to suggest an acute intracranial hemorrhage. No mass lesion is evident. No acute infarcts are evident. Ventricles and sulci are appropriate for the patient age. Paranasal sinuses and mastoid air cells within the [id number] are clear. No abnormal enhancement is evident. IMPRESSIONS: 1. No acute intracranial abnormality.
--- NOTE | 2018-06-14 18:52 | CT ---
EXAMINATION TYPE: CT lumbar spine wo con DATE OF EXAM: 06/14/2018 COMPARISON: 08/04/2015 HISTORY: Left sided weakness CT DLP: 3.0 mGycm CONTRAST: None TECHNIQUE: CT of the lumbar spine is performed on a spiral scan at 3 mm thick sections. Reconstructed images are performed in the coronal and sagittal planes. FINDINGS: Examination is performed utilizing previous measurements of the lowest disc levels labeled L5-S1 and the most severe changes at L4-5. T12-L1: T12 level has some mild compression deformity. No focal disc herniation or significant disc b ulge is evident. No spinal canal stenosis or neural foraminal stenosis is present. L1-L2: No focal disc herniation or significant disc bulge is evident. No spinal canal stenosis or n eural foraminal stenosis is present L2-L3: No focal disc herniation or significant disc bulge is evident. No spinal canal stenosis or n eural foraminal stenosis is present L3-L4: No focal disc herniation or significant disc bulge is evident. No spinal canal stenosis or n eural foraminal stenosis is present L4-L5: No focal disc herniation or significant disc bulge is evident. No spinal canal stenosis or n eural foraminal stenosis is present L5-S1: There is loss of disc height. Disc spacers are present. Endplate changes are present. There is an anteriorr listhesis estimated to measure 0.6 cm which is stable from comparison. Vertebral alignment appears normal. Inferior pole left renal stone measuring 0.6 x 1.3 cm is evident. IMPRESSION: Stable spondylolisthesis and endplate changes at L5-S1.
--- NOTE | 2018-06-14 18:56 | CT ---
EXAMINATION TYPE: CT cervical spine wo/w con DATE OF EXAM: 06/14/2018 COMPARISON: 10/06/2017 HISTORY: Left sided weakness and dysphagia CT DLP: 2033.90 mGycm CONTRAST: Performed without and with IV Contrast, patient injected with 100 mL of Isovue 300. CT of the cervical spine is performed in the axial plane at 2 mm thick sections. Reconstructed image s in the coronal, and sagittal plane are reviewed on the computer. No acute fractures are evident. Vertebral body alignment is normal. There is some increased density within the C6-7 disc space. No disc herniation is evident. No spinal canal stenosis or neural foraminal stenosis. Vertebral body heights are preserved. No spinal canal stenosis is evident No neural foraminal stenosis is evident. No abnormal enhancement is evident. IMPRESSIONS: 1. Degenerative disc changes C6-7. 2. Examination is stable from 10/06/2017
--- NOTE | 2018-06-15 17:10 | CT ---
EXAMINATION TYPE: CT thoracic spine wo/w con DATE OF EXAM: 06/14/2018 COMPARISON: None HISTORY: Left sided weakness CT DLP: 3984.80 mGycm Automated exposure control for dose reduction was used. CONTRAST: Performed without and with IV Contrast, patient injected with 100 mL of Isovue 300. TECHNIQUE: Axial images 3 mm thick sections. Sagittal reconstructed images. FINDINGS: Compression deformity of L1 is again evident. Thoracic disc heights appear preserved. Thoracic vertebral body heights are preserved. Stimulator cuate ds are present posteriorly at No spinal canal stenosis is present. Neural foramen are patent. T7-T8. Following contrast administration, no abnormal enhancement is evident. IMPRESSION: NO SUSPICIOUS ACUTE CHANGES WITHIN THE THORACIC SPINE.
== END ==
LOC: RADCTMAIN 10:19
PROVIDERS: ATTEND Psychiatry & Neurology Neurology
DX: G35 Multiple sclerosis (principal); I63.9 Cerebral infarction, unspecified; M43.17 Spondylolisthesis, lumbosacral region; M47.812 Spondylosis without myelopathy or radiculopathy, cervical region; R13.10 Dysphagia, unspecified
CPT/HCPCS: 92611; 74230; 93880; 72130; 72127; 72131; 70470; Q9967

== ENCOUNTER → 2018-08-29 | Outpatient (CLI) | payer BC ==
--- NOTE | 2018-08-29 09:59 | NM ---
EXAMINATION TYPE: NM gastric emptying study DATE OF EXAM: 08/29/2018 COMPARISON: NONE HISTORY: 53-year-old male nausea and vomiting Technique: Following administration of 2.1 mCi Tc 99m Sulfur Colloid with 1 cup of oatmeal projection images of the abdomen were obtained 10 minutes post ingestion. When possible, both anterior and post erior projection images were obtained to allow the calculation of the geometric mean activity. FINDINGS: The exam was terminated after 60 minutes as the patient began to have seizures on the table. Clearance: 24 % Half-life: 115 min Gastroesophageal reflux: None IMPRESSION: Prolonged T 1/2 compatible with gastroparesis. Exam terminated at 60 minutes as the patient began to have seizures on the table.
== END | disposition home or self-care (01) ==
LOC: RADNMMAIN 07:05
PROVIDERS: ATTEND Student in an Organized Health Care Education/Training Program
DX: R11.2 Nausea with vomiting, unspecified (principal)
CPT/HCPCS: 78264; A9541

== ENCOUNTER → 2018-11-15 | Outpatient (CLI) | payer BC ==
[~2018-11-15] MED LIST changes: -ALPRAZolam 0.25 MG TAB PO PRN; -ASPIRIN 325 MG TAB PO ONE; -ATORVASTATIN 80 MG TAB PO STA; +IODINE/POTASS IOD (LUGOLS) 8 ML BTL TOPICAL ONE; -SODIUM CHLORIDE 0.9% 1,000 ML in EMPTY BAG 1 BAG IV ONE
--- NOTE | 2018-11-17 07:57 | NM ---
EXAMINATION TYPE: NM DatScan Brain SPECT DATE OF EXAM: 11/15/2018 COMPARISON: NONE HISTORY: Essential tremor, diagnosis of multiple sclerosis 19 years ago. Memory loss for one year. TECHNIQUE: 10 drops of Lugol's solution was administered 1 hour prior to injection as a thyroid bloc sabra agent. After the administration of 4.33 mCi I-123 Ioflupane DaTscan. Images obtained 4 hours p ost injection. SPECT images of the brain were acquired with axial and coronal reconstructions. FINDINGS: The DaTSCAN demonstrates normal uptake of tracer throughout the striata. There is no evidence of loss of the pre-synaptic dopaminergic terminals. IMPRESSION: This normal appearance is against a diagnosis of idiopathic PD or PS and is seen in healthy individua ls and also patients with ET and drug induced Parkinsonism.
== END | disposition home or self-care (01) ==
LOC: RADNMMAIN 11:05
PROVIDERS: ATTEND Psychiatry & Neurology Neurology
DX: G21.19 Other drug induced secondary parkinsonism (principal)
CPT/HCPCS: 78607; A9584

== ENCOUNTER → 2019-01-09 | Outpatient (CLI) | payer BC | END | disposition home or self-care (01) | LOC: LABWHC1 16:59 | PROVIDERS: ATTEND Psychiatry & Neurology Pain Medicine | DX: Z51.81 Encounter for therapeutic drug level monitoring (principal) | CPT/HCPCS: 36415; 80164 ==

== ENCOUNTER 2019-01-16 13:57 | Emergency (ER) | payer MEDICARE, BC ==
[2019-01-16 14:09] VITALS: RESP 18
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
[2019-01-16 16:13] VITALS: BP 138/65; PULSE 77; TEMP 98.3
== END 2019-01-16 15:35 | disposition home or self-care (01) ==
LOC: EC 13:57
DX: S80.01XA Contusion of right knee, initial encounter (principal); S80.212A Abrasion, left knee, initial encounter; E11.9 Type 2 diabetes mellitus without complications; F41.9 Anxiety disorder, unspecified; F32.9 Major depressive disorder, single episode, unspecified; G40.909 Epilepsy, unspecified, not intractable, without status epilepticus; Z79.82 Long term (current) use of aspirin; Z79.4 Long term (current) use of insulin; Z79.899 Other long term (current) drug therapy; Z88.0 Allergy status to penicillin; Z88.8 Allergy status to other drugs, medicaments and biological substances; V86.99XA Unspecified occupant of other special all-terrain or other off-road motor vehicle injured in nontraffic accident, initial encounter
CPT/HCPCS: 99284

== ENCOUNTER 2019-02-22 02:04 | Observation (INO) | payer BC, MEDICARE ==
[2019-02-22 02:14] LABS: Glucose,Whole Blood 217 mg/dL (75-99)
[2019-02-22 02:41] LABS: Basophils % (A) 0 %; Eosinophils # (A) 0.1 k/uL (0-0.7); Eosinophils % (A) 1 %; HCT 37.1 % (39.0-53.0); HGB 12.4 gm/dL (13.0-17.5); Lymphocytes # (A) 1.6 k/uL (1.0-4.8); Lymphocytes % (A) 16 %; MCHC 33.3 g/dL (31.0-37.0); MCV 95.9 fL (80.0-100.0); Mean Platelet Volume 7.8; Monocytes # (A) 0.6 k/uL (0-1.0); Monocytes % (A) 6 %; Neutrophils # (A) 7.6 k/uL (1.3-7.7); Neutrophils % (A) 76 %; Platelet Count 236 k/uL (150-450); RBC 3.87 m/uL (4.30-5.90); RDW 13.3 % (11.5-15.5); WBC 10.1 k/uL (3.8-10.6)
[2019-02-22 02:53] LABS: Albumin 4.5 g/dL (3.5-5.0); Calcium 9.2 mg/dL (8.4-10.2); Potassium 4.5 mmol/L (3.5-5.1); Total Bilirubin 0.6 mg/dL (0.2-1.3); Total Protein 7.3 g/dL (6.3-8.2)
--- NOTE | 2019-02-22 02:53 | ED ---
General Adult HPI - General Chief complaint: Nausea/Vomiting/Diarrhea Stated complaint: Vomiting Time Seen by Provider: 02/22/19 02:09 Source: patient, EMS Mode of arrival: EMS Limitations: no limitations - History of Present Illness Initial comments: this patient is a 53-year-old man who is brought to be evaluated for altered mental status. The patient's states that he has been less active than usual at home. He has also been confused. She states she may have had a couple of seizures at home as well. The patient does have long-standing seizure disorder, taking vimpat, fypoza, and Depakote. the patient had extraction of all of his teeth on and then had not been eating or drinking well since that time. He has been taking clindamycin as directed. When I interview the patient, he is declining any complaints. He is confused about why he is here stating that his can explain better and he can. -: hour(s) Consistency: constant Improves with: none Worsens with: none Associated Symptoms: confusion Treatments Prior to Arrival: none - Related Data Home Medications Medication Instructions Recorded Confirmed Ibuprofen [Motrin] 800 mg PO TID 05/02/16 02/22/19 DULoxetine HCL [Cymbalta] 60 mg PO DAILY 08/18/16 02/22/19 Divalproex ER [Depakote ER] 500 mg PO QID 03/18/17 02/22/19 Testosterone [Androgel 1.62% Gel 2 applic TOPICAL Q48H 03/18/17 02/22/19 Pump] Aspirin 81 mg PO DAILY 11/14/17 02/22/19 Baclofen 10 mg PO QID 11/14/17 02/22/19 INSULIN LISPRO (HumaLOG) [humaLOG] See Protocol SQ ACHS 11/14/17 02/22/19 Lisinopril-Hctz 10-12.5 mg 1 tab PO AC-LUNCH 11/14/17 02/22/19 [Zestoretic 10-12.5] Perampanel [Fycompa] 12 mg PO DAILY 11/14/17 02/22/19 Ergocalciferol (Vitamin D2) 50,000 unit PO SA 01/19/18 02/22/19 [Vitamin D2] Acetaminophen [Tylenol Extra 500 mg PO TID PRN 02/22/19 02/22/19 Strength] Atorvastatin [Lipitor] 10 mg PO W/LUNCH 02/22/19 02/22/19 Brexpiprazole [Rexulti] 0.5 mg PO HS 02/22/19 02/22/19 Clindamycin HCl [Cleocin] 150 mg PO TID 02/22/19 02/22/19 Lacosamide [Vimpat] 200 mg PO BID 02/22/19 02/22/19 Mirtazapine [Remeron] 15 mg PO BID 02/22/19 02/22/19 buPROPion XL [Wellbutrin Xl] 150 mg PO BID 02/22/19 02/22/19 metFORMIN HCL 1,000 mg PO BID 02/22/19 02/22/19 Allergies Allergy/AdvReac Type Severity Reaction Status Date / Time Penicillins Allergy Severe Swelling Verified 02/22/19 07:50 prochlorperazine AdvReac Severe Hallucinati Verified 02/22/19 07:50 [From Compazine] ons prochlorperazine edisylate AdvReac Severe Hallucinati Verified 02/22/19 07:50 [From Compazine] ons prochlorperazine maleate AdvReac Severe Hallucinati Verified 02/22/19 07:50 [From Compazine] ons bupropion HCl AdvReac Intermediate Nausea & Verified 02/22/19 07:50 [From Wellbutrin] Vomiting gabapentin [From Neurontin] AdvReac Intermediate Nausea & Verified 02/22/19 07:50 Vomiting amantadine AdvReac Unknown Nausea & Verified 02/22/19 07:50 Vomiting Review of Systems ROS Statement: Those systems with pertinent positive or pertinent negative responses have been documented in the HPI. ROS Other: All systems not noted in ROS Statement are negative. Limitations: ROS unobtainable due to patients medical condition Constitutional: Denies: fever ENT: Reports: dental pain. Denies: throat pain Respiratory: Denies: cough, dyspnea Cardiovascular: Denies: chest pain, syncope Gastrointestinal: Denies: abdominal pain, vomiting, diarrhea Musculoskeletal: Denies: back pain Skin: Denies: rash Neurological: Denies: headache, weakness Past Medical History Past Medical History: Chest Pain / Angina, Diabetes Mellitus, Eye Disorder, GERD/Reflux, Memory Impairment, Musculoskeletal Disorder, Neurologic Disorder, Osteoarthritis (OA), Renal Disease, Seizure Disorder Additional Past Medical History / Comment(s): other pmh: gastroperisis MS, active lesions in brain.stress test, lt kidney stone, cataracts, "macular degeneration", enlarged heart. History of Any Multi-Drug Resistant Organisms: None Reported Past Surgical History: Back Surgery, Heart Catheterization, Tonsillectomy Additional Past Surgical History / Comment(s): c spine, lumbar. spinal cord stimulator. VNS unit left chest. Past Anesthesia/Blood Transfusion Reactions: No Reported Reaction Past Psychological History: Anxiety, Depression Smoking Status: Never smoker Past Alcohol Use History: Daily Past Drug Use History: Marijuana - Past Family History Mother Family Medical History: COPD, Hypertension Father Family Medical History: Coronary Artery Disease (CAD), Myocardial Infarction ([place]) Additional Family Medical History / Comment(s): cabg General Exam Limitations: no limitations General appearance: alert, in no apparent distress Head exam: Present: atraumatic, normocephalic Eye exam: Present: normal appearance, PERRL, EOMI. Absent: scleral icterus, conjunctival injection ENT exam: Present: other (there is some mild redness postsurgical site.) Neck exam: Present: normal inspection, full ROM. Absent: tenderness, meningismus Respiratory exam: Present: normal lung sounds bilaterally. Absent: respiratory distress, wheezes, rales, rhonchi, stridor Cardiovascular Exam: Present: regular rate, normal rhythm, normal heart sounds. Absent: systolic murmur, diastolic murmur, rubs, gallop GI/Abdominal exam: Present: soft. Absent: distended, tenderness, guarding, rebound, rigid, mass Extremities exam: Present: normal inspection, normal capillary refill. Absent: pedal edema, calf tenderness Back exam: Present: normal inspection. Absent: CVA tenderness (R), CVA tenderness (L) Neurological exam: Present: alert, oriented X3, CN II-XII intact, other (patient does have some confusion however is alert and appropriate when he is directly stimulated.). Absent: motor sensory deficit Skin exam: Present: warm, dry, intact, normal color. Absent: rash Course Vital Signs 02/22/19 02/22/19 02/22/19 02:04 06:14 07:00 Temperature 97.3 F L 97.3 F L Pulse Rate 70 75 76 Pulse Rate [ Left Radial] Respiratory 18 16 16 Rate Blood Pressure 146/80 134/80 134/80 Blood Pressure [Left Arm] O2 Sat by Pulse 97 98 98 Oximetry 02/22/19 07:40 Temperature 97.7 F Pulse Rate Pulse Rate [ 67 Left Radial] Respiratory 14 Rate Blood Pressure Blood Pressure 125/74 [Left Arm] O2 Sat by Pulse 97 Oximetry EKG Findings - EKG Results: EKG: interpreted by ERMD, sinus rhythm (rate 65 bpm), normal axis, normal QRS (QRS duration mildly prolonged at 124 ms.) - Blocks, [place], Hypertrophy, ST Abn: AV and intraventricular conduction: intraventricular conduction delay Medical Decision Making - Medical Decision Making patient's 53-year-old man presenting with some apparent delirium following dental extractions. Workup does reveal that he is a bit dehydrated based on BU N/creatinine. Fluid boluses administered. On reevaluation, the patient does remain oriented 3, however fluctuating level of consciousness still consistent with delirium. I did discuss performing lumbar puncture though suspicion for PALLIATIVE MEDICINE PHYSICIAN infection is low, given there is no meningismus and not significant headache. Patient and are declining to have this at this point. I have paged Dr. Khan to admit the patient for mental status change, and his callback is pending at time of shift change. - Lab Data Result diagrams: 02/23/19 06:43 02/23/19 06:43 Lab Results 02/22/19 02/22/19 02/22/19 Range/Units 02:11 02:11 02:11 WBC 10.1 (3.8-10.6) k/uL RBC 3.87 L (4.30-5.90) m/uL Hgb 12.4 L (13.0-17.5) gm/dL Hct 37.1 L (39.0-53.0) % MCV 95.9 (80.0-100.0) fL MCH 32.0 (25.0-35.0) pg MCHC 33.3 (31.0-37.0) g/dL RDW 13.3 (11.5-15.5) % Plt Count 236 (150-450) k/uL Neutrophils % 76 % Lymphocytes % 16 % Monocytes % 6 % Eosinophils % 1 % Basophils % 0 % Neutrophils # 7.6 (1.3-7.7) k/uL Lymphocytes # 1.6 (1.0-4.8) k/uL Monocytes # 0.6 (0-1.0) k/uL Eosinophils # 0.1 (0-0.7) k/uL Basophils # 0.0 (0-0.2) k/uL PT 10.6 (9.0-12.0) sec INR 1.0 (<1.2) APTT 22.2 (22.0-30.0) sec Sodium 141 (137-145) mmol/L Potassium 4.5 (3.5-5.1) mmol/L Chloride 105 (98-107) mmol/L Carbon Dioxide 22 (22-30) mmol/L Anion Gap 14 mmol/L BUN 36 H (9-20) mg/dL Creatinine 2.19 H (0.66-1.25) mg/dL Est GFR (CKD-EPI)AfAm 39 (>60 ml/min/1.73 sqM) Est GFR (CKD-EPI)NonAf 34 (>60 ml/min/1.73 sqM) Glucose 220 H (74-99) mg/dL POC Glucose (mg/dL) (75-99) mg/dL POC Glu Business Relations Manager ID Plasma Lactic Acid Ermias (0.7-2.0) mmol/L Calcium 9.2 (8.4-10.2) mg/dL Total Bilirubin 0.6 (0.2-1.3) mg/dL AST 25 (17-59) U/L ALT 16 (4-49) U/L Alkaline Phosphatase 88 (38-126) U/L Troponin I (0.000-0.034) ng/mL Total Protein 7.3 (6.3-8.2) g/dL Albumin 4.5 (3.5-5.0) g/dL Urine Color Urine Appearance (Clear) Urine pH (5.0-8.0) Ur Specific [place] (1.001-1.035) Urine Protein (Negative) Urine Glucose (UA) (Negative) Urine Ketones (Negative) Urine Blood (Negative) Urine Nitrite (Negative) Urine Bilirubin (Negative) Urine Urobilinogen (<2.0) mg/dL Ur Leukocyte Esterase (Negative) Urine RBC (0-5) /hpf Urine WBC (0-5) /hpf Ur Squamous Epith Cells (0-4) /hpf Urine Bacteria (None) /hpf Hyaline Casts (0-2) /lpf Urine Mucus (None) /hpf Urine Opiates Screen (NotDetected) Ur Oxycodone Screen (NotDetected) Urine Methadone Screen (NotDetected) Ur Propoxyphene Screen (NotDetected) Ur Barbiturates Screen (NotDetected) Valproic Acid ug/mL U Tricyclic Antidepress (NotDetected) Ur Phencyclidine Scrn (NotDetected) Ur Amphetamines Screen (NotDetected) U Methamphetamines Scrn (NotDetected) U Benzodiazepines Scrn (NotDetected) Urine Cocaine Screen (NotDetected) U Marijuana (THC) Screen (NotDetected) 02/22/19 02/22/19 02/22/19 Range/Units 02:11 02:11 02:11 WBC (3.8-10.6) k/uL RBC (4.30-5.90) m/uL Hgb (13.0-17.5) gm/dL Hct (39.0-53.0) % MCV (80.0-100.0) fL MCH (25.0-35.0) pg MCHC (31.0-37.0) g/dL RDW (11.5-15.5) % Plt Count (150-450) k/uL Neutrophils % % Lymphocytes % % Monocytes % % Eosinophils % % Basophils % % Neutrophils # (1.3-7.7) k/uL Lymphocytes # (1.0-4.8) k/uL Monocytes # (0-1.0) k/uL Eosinophils # (0-0.7) k/uL Basophils # (0-0.2) k/uL PT (9.0-12.0) sec INR (<1.2) APTT (22.0-30.0) sec Sodium (137-145) mmol/L Potassium (3.5-5.1) mmol/L Chloride (98-107) mmol/L Carbon Dioxide (22-30) mmol/L Anion Gap mmol/L BUN (9-20) mg/dL Creatinine (0.66-1.25) mg/dL Est GFR (CKD-EPI)AfAm (>60 ml/min/1.73 sqM) Est GFR (CKD-EPI)NonAf (>60 ml/min/1.73 sqM) Glucose (74-99) mg/dL POC Glucose (mg/dL) (75-99) mg/dL POC Glu Business Relations Manager ID Plasma Lactic Acid Ermias 1.2 (0.7-2.0) mmol/L Calcium (8.4-10.2) mg/dL Total Bilirubin (0.2-1.3) mg/dL AST (17-59) U/L ALT (4-49) U/L Alkaline Phosphatase (38-126) U/L Troponin I <0.012 (0.000-0.034) ng/mL Total Protein (6.3-8.2) g/dL Albumin (3.5-5.0) g/dL Urine Color Urine Appearance (Clear) Urine pH (5.0-8.0) Ur Specific [place] (1.001-1.035) Urine Protein (Negative) Urine Glucose (UA) (Negative) Urine Ketones (Negative) Urine Blood (Negative) Urine Nitrite (Negative) Urine Bilirubin (Negative) Urine Urobilinogen (<2.0) mg/dL Ur Leukocyte Esterase (Negative) Urine RBC (0-5) /hpf Urine WBC (0-5) /hpf Ur Squamous Epith Cells (0-4) /hpf Urine Bacteria (None) /hpf Hyaline Casts (0-2) /lpf Urine Mucus (None) /hpf Urine Opiates Screen (NotDetected) Ur Oxycodone Screen (NotDetected) Urine Methadone Screen (NotDetected) Ur Propoxyphene Screen (NotDetected) Ur Barbiturates Screen (NotDetected) Valproic Acid 58.3 ug/mL U Tricyclic Antidepress (NotDetected) Ur Phencyclidine Scrn (NotDetected) Ur Amphetamines Screen (NotDetected) U Methamphetamines Scrn (NotDetected) U Benzodiazepines Scrn (NotDetected) Urine Cocaine Screen (NotDetected) U Marijuana (THC) Screen (NotDetected) 02/22/19 02/22/19 02/22/19 Range/Units 02:13 03:25 03:33 WBC (3.8-10.6) k/uL RBC (4.30-5.90) m/uL Hgb (13.0-17.5) gm/dL Hct (39.0-53.0) % MCV (80.0-100.0) fL MCH (25.0-35.0) pg MCHC (31.0-37.0) g/dL RDW (11.5-15.5) % Plt Count (150-450) k/uL Neutrophils % % Lymphocytes % % Monocytes % % Eosinophils % % Basophils % % Neutrophils # (1.3-7.7) k/uL Lymphocytes # (1.0-4.8) k/uL Monocytes # (0-1.0) k/uL Eosinophils # (0-0.7) k/uL Basophils # (0-0.2) k/uL PT (9.0-12.0) sec INR (<1.2) APTT (22.0-30.0) sec Sodium (137-145) mmol/L Potassium (3.5-5.1) mmol/L Chloride (98-107) mmol/L Carbon Dioxide (22-30) mmol/L Anion Gap mmol/L BUN (9-20) mg/dL Creatinine (0.66-1.25) mg/dL Est GFR (CKD-EPI)AfAm (>60 ml/min/1.73 sqM) Est GFR (CKD-EPI)NonAf (>60 ml/min/1.73 sqM) Glucose (74-99) mg/dL POC Glucose (mg/dL) 217 H 192 H (75-99) mg/dL POC Glu Business Relations Manager ID Javon, Simone Sunday, Pattie Plasma Lactic Acid Ermias (0.7-2.0) mmol/L Calcium (8.4-10.2) mg/dL Total Bilirubin (0.2-1.3) mg/dL AST (17-59) U/L ALT (4-49) U/L Alkaline Phosphatase (38-126) U/L Troponin I (0.000-0.034) ng/mL Total Protein (6.3-8.2) g/dL Albumin (3.5-5.0) g/dL Urine Color Yellow Urine Appearance Clear (Clear) Urine pH 6.0 (5.0-8.0) Ur Specific [place] 1.022 (1.001-1.035) Urine Protein 1+ H (Negative) Urine Glucose (UA) Trace H (Negative) Urine Ketones 1+ H (Negative) Urine Blood Trace H (Negative) Urine Nitrite Negative (Negative) Urine Bilirubin Negative (Negative) Urine Urobilinogen <2.0 (<2.0) mg/dL Ur Leukocyte Esterase Negative (Negative) Urine RBC 2 (0-5) /hpf Urine WBC 2 (0-5) /hpf Ur Squamous Epith Cells <1 (0-4) /hpf Urine Bacteria Rare H (None) /hpf Hyaline Casts 43 H (0-2) /lpf Urine Mucus Rare H (None) /hpf Urine Opiates Screen Not Detected (NotDetected) Ur Oxycodone Screen Not Detected (NotDetected) Urine Methadone Screen Not Detected (NotDetected) Ur Propoxyphene Screen Not Detected (NotDetected) Ur Barbiturates Screen Not Detected (NotDetected) Valproic Acid ug/mL U Tricyclic Antidepress Not Detected (NotDetected) Ur Phencyclidine Scrn Not Detected (NotDetected) Ur Amphetamines Screen Not Detected (NotDetected) U Methamphetamines Scrn Not Detected (NotDetected) U Benzodiazepines Scrn Not Detected (NotDetected) Urine Cocaine Screen Not Detected (NotDetected) U Marijuana (THC) Screen Detected H (NotDetected) Disposition Clinical Impression: Dehydration, Altered mental status Disposition: ADMITTED IP TO THIS HOSP Condition: Fair Is patient prescribed a controlled substance at d/c from ED?: No
[2019-02-22 02:56] LABS: Partial Thromboplastin Time 22.2 sec (22.0-30.0); Prothrombin Time 10.6 sec (9.0-12.0)
--- NOTE | 2019-02-22 03:04 | XR ---
EXAMINATION TYPE: XR chest 2V DATE OF EXAM: 02/22/2019 COMPARISON: 01/17/2018 HISTORY: Altered mental status TECHNIQUE: 2 views FINDINGS: There is no heart failure nor confluent pneumonic infiltrate. Costophrenic angles are clear . There is a left axillary neurostimulator. The bony thorax is intact. There is neural stimulator in the thoracic spine. IMPRESSION: No active cardiopulmonary disease. Normal heart. No change.
[2019-02-22 03:35] LABS: Glucose,Whole Blood 192 mg/dL (75-99)
[2019-02-22 03:40] LABS: Appearance,Urine Clear (Clear); Bacteria,Urine Rare /hpf; Bilirubin,Urine Negative (Negative); Blood,Urine Trace (Negative); Color,Urine Yellow; Glucose,Urine (UA) Trace (Negative); Hyaline Casts,Urine 43 /lpf (0-2); Ketones,Urine 1+ (Negative); Leukocyte Esterase,Urine Negative (Negative); Mucus,Urine Rare /hpf; Nitrite,Urine Negative (Negative); Protein,Urine 1+ (Negative); RBC,Urine 2 /hpf (0-5); Specific Gravity,Urine 1.022 (1.001-1.035); Squamous Epithelial Cell,Urine <1 /hpf (0-4); Urobilinogen,Urine <2.0 mg/dL (<2.0); WBC,Urine 2 /hpf (0-5)
[2019-02-22 03:49] LABS: Amphetamine Screen,Urine Not Detected (NotDetected); Barbiturate Screen,Urine Not Detected (NotDetected); Benzodiazepines Screen,Urine Not Detected (NotDetected); Cocaine Screen,Urine Not Detected (NotDetected); Methadone Screen, Urine Not Detected (NotDetected); Opiate Screen,Urine Not Detected (NotDetected); Oxycodone Screen, Urine Not Detected (NotDetected); Phencyclidine Screen,Urine Not Detected (NotDetected); Tricyclic Antidepressant,Urine Not Detected (NotDetected); Urn Cannabinoid Scrn Detected (NotDetected)
--- NOTE | 2019-02-22 04:01 | CT ---
EXAMINATION TYPE: CT brain wo con DATE OF EXAM: 02/22/2019 COMPARISON: 06/14/2018 HISTORY: ams CT DLP: 1099.4 mGycm Automated exposure control for dose reduction was used. Ventricles have normal size. There is no mass effect nor midline shift. There is no sign of intracran ial hemorrhage. The calvarium is intact. There is no evidence of cerebral edema. There is minimal hyp odensity in the periventricular white matter. IMPRESSION: There is probably minimal chronic small vessel ischemia. No acute intracranial abnormality. No change .
[2019-02-22] MEDS ORDERED: SODIUM CHLORIDE 0.9% 1,000 ML IV ONE (04:21)
[2019-02-22] MEDS ORDERED: NALOXONE 0.4 MG/ML 1 ML VIAL IV PRN (07:05)
[2019-02-22] MEDS ORDERED: BACLOFEN 10 MG TAB PO PRN (07:08)
[2019-02-22] MEDS: SODIUM CHLORIDE 0.9% 1,000 ML IV SCH ×2 (07:50→16:47)
[2019-02-22] MEDS ORDERED: ERGOCALCIFEROL 50,000 UNIT CAP PO SCH (09:00)
[2019-02-22] MEDS ORDERED: TESTOSTERONE TOPICAL SCH (09:00)
[2019-02-22] MEDS: ASPIRIN 81 MG PO SCH (10:15)
[2019-02-22] MEDS: DULoxetine HCL 60 MG CAPSULE.DR PO SCH ×2 (10:15→21:23)
[2019-02-22] MEDS: DIVALPROEX ER 500 MG TAB.ER.24H PO SCH ×2 (10:15→16:46)
[2019-02-22] MEDS: PERAMPANEL PO SCH (10:19)
[2019-02-22] MEDS: LACOSAMIDE 150 MG TABLET PO SCH ×2 (10:31→21:23)
--- NOTE | 2019-02-22 10:36 | HP ---
HISTORY AND PHYSICAL CHIEF COMPLAINT: A 53-year-old white male with altered mental status, been confused, a couple seizures at home. He had all his teeth pulled yesterday and has been very lethargic and acting very confused since he had his teeth removed. He has seizure disorder. He sees Dr. Chang. He takes Vimpat, , Depakote. Maybe anesthesia from pulling all his teeth had some kind neurologic affect on him. We are going to rule out with neurologic consult. He sees and neurology Dr. Chang usually as an outpatient. Sees him for multiple neurologic issues. HOME MEDICATIONS: At home include Motrin, Cymbalta, Depakote, Vimpat, AndroGel, aspirin, baclofen, Humalog, lisinopril, hydrochlorothiazide, Fycompa, and vitamin D2. ALLERGIES: TO COMPAZINE, WELLBUTRIN, PENICILLIN, NEURONTIN, REVIEW OF SYMPTOMS: Otherwise 14-point review of systems negative except for mentioned in HPI. PAST MEDICAL HISTORY: Of musculoskeletal disorder, neurologic disorders, osteoarthritis, renal disease, memory impairment, diabetes mellitus, ophthalmologic disorder, gastroparesis, kidney stones, cataracts, macular degeneration, memory loss. PAST SURGICAL HISTORY: Back surgery, heart catheterization, tonsillectomy. PSYCH HISTORY: Anxiety and depression. FAMILY HISTORY: Mother with COPD, hypertension. Father with coronary artery disease and myocardial infarction. PHYSICAL EXAMINATION: Vital signs were reviewed. He is alert. BMI is over 40. He is in no acute distress. Cardiovascular S1, S2. Head normocephalic, atraumatic. Oral shows teeth have been removed. No active bleeding. Respiratory is clear. Cardiac: Regular rate and rhythm. GI soft, distended due to obesity. Extremities: No inspection. Musculoskeletal: He has tenderness to palpation on the left and right cervical lumbar muscles. Neurologic: Cranial nerves are intact. VITAL SIGNS: Temp 97.3, pulse 70 to 75, respiratory rate is 16 to 18, blood pressure 130's to 140s over 80s. O2 97 98%. EKG sinus rhythm. ASSESSMENT: 1. Status post teeth extraction with possible anesthesia induced delirium/altered mental status, dehydration. Watch him over overnight. IV fluids. Neurologic consult. 2. Continue his Accu-Chek protocol for diabetes. 3. Acute tubular necrosis/acute renal insufficiency secondary to dehydration. 4. Await neurology consult. 5. Monitor him 24 hours. 6. Continue seizure medications. MMODL / IJN: [id number] /
--- NOTE | 2019-02-22 11:14 | P.CNNES ---
History of Present Illness Consult date: 02/22/19 Reason for Consult: Mental status change Chief complaint: confusion, break thru seizures History of Present Illness: Mr. Alonzo Vaz is a very pleasant 53-year-old gentleman who was seen in neurologic consultation on February 22, 2019, via telemetry neurology. The patient's is present in the room at the time of the evaluation. The patient reportedly had his teeth pulled on Sunday afternoon. Since that time he has been having difficulty eating and drinking because of throat pain. He was started on clindamycin by the dentist. He also developed vomiting and diarrhea. Per Mrs. Vaz, her was weak, disoriented, agitated, cold, clammy and sweaty. He also had several seizures. The patient has a long history of seizures. He is taking 2 seizure medications and has a vagus nerve stimulator. Per his , he has seizures daily. Apparently, the patient went through narcotic withdrawal and the seizures began after this. The patient does also have a history of multiple sclerosis and diabetes mellitus. Per the patient, "trauma exacerbates my seizures". The patient does follow with a neurologist in [facility], for his MS and seizures. Recently his Vimpat dosing was increased. Approximately 2 weeks ago the patient did have 5 days of steroids, for symptoms that appeared to be exacerbation of his multiple sclerosis. He was having increased memory loss and increased paresthesias in his left arm. The patient does take okra wrists for his multiple sclerosis. He has had 3 doses. The most recent dose was in December 2018. The patient's most recent EEG was a few months ago. Review of Systems as noted in history of chief complaint Past Medical History Past Medical History: Chest Pain / Angina, Diabetes Mellitus, Eye Disorder, Memory Impairment, Musculoskeletal Disorder, Neurologic Disorder, Osteoarthritis (OA), Renal Disease, Seizure Disorder, Sleep Apnea/CPAP/BIPAP Additional Past Medical History / Comment(s): other pmh: gastroperisis MS, active lesions in brain.stress test, lt kidney stone, cataracts, enlarged heart. doesn't use cpap History of Any Multi-Drug Resistant Organisms: None Reported Past Surgical History: Back Surgery, Heart Catheterization, Tonsillectomy Additional Past Surgical History / Comment(s): c spine, lumbar. spinal cord stimulator. VNS unit left chest. Past Anesthesia/Blood Transfusion Reactions: No Reported Reaction Past Psychological History: Anxiety, Depression Additional Psychological History / Comment(s): , lives in the family home with his . 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 No experience. No tobacco or alcohol use. No animal exposures. Smoking Status: Never smoker Past Alcohol Use History: Daily Past Drug Use History: Marijuana - Past Family History Mother Family Medical History: COPD, Hypertension Father Family Medical History: Coronary Artery Disease (CAD), Myocardial Infarction ([place]) Additional Family Medical History / Comment(s): cabg Medications and Allergies Home Medications Medication Instructions Recorded Confirmed Type Ibuprofen [Motrin] 800 mg PO TID 05/02/16 02/22/19 History DULoxetine HCL [Cymbalta] 60 mg PO DAILY 08/18/16 02/22/19 History Divalproex ER [Depakote ER] 500 mg PO QID 03/18/17 02/22/19 History Testosterone [Androgel 1.62% Gel 2 applic TOPICAL Q48H 03/18/17 02/22/19 History Pump] Aspirin 81 mg PO DAILY 11/14/17 02/22/19 History Baclofen 10 mg PO QID 11/14/17 02/22/19 History INSULIN LISPRO (HumaLOG) [humaLOG] See Protocol SQ ACHS 11/14/17 02/22/19 History Lisinopril-Hctz 10-12.5 mg 1 tab PO AC-LUNCH 11/14/17 02/22/19 History [Zestoretic 10-12.5] Perampanel [Fycompa] 12 mg PO DAILY 11/14/17 02/22/19 History Ergocalciferol (Vitamin D2) 50,000 unit PO SA 01/19/18 02/22/19 History [Vitamin D2] Acetaminophen [Tylenol Extra 500 mg PO TID PRN 02/22/19 02/22/19 History Strength] Atorvastatin [Lipitor] 10 mg PO W/LUNCH 02/22/19 02/22/19 History Brexpiprazole [Rexulti] 0.5 mg PO HS 02/22/19 02/22/19 History Clindamycin HCl [Cleocin] 150 mg PO TID 02/22/19 02/22/19 History Lacosamide [Vimpat] 200 mg PO BID 02/22/19 02/22/19 History Mirtazapine [Remeron] 15 mg PO BID 02/22/19 02/22/19 History buPROPion XL [Wellbutrin Xl] 150 mg PO BID 02/22/19 02/22/19 History metFORMIN HCL 1,000 mg PO BID 02/22/19 02/22/19 History Allergies Allergy/AdvReac Type Severity Reaction Status Date / Time Penicillins Allergy Severe Swelling Verified 02/22/19 07:50 prochlorperazine AdvReac Severe Hallucinati Verified 02/22/19 07:50 [From Compazine] ons prochlorperazine edisylate AdvReac Severe Hallucinati Verified 02/22/19 07:50 [From Compazine] ons prochlorperazine maleate AdvReac Severe Hallucinati Verified 02/22/19 07:50 [From Compazine] ons bupropion HCl AdvReac Intermediate Nausea & Verified 02/22/19 07:50 [From Wellbutrin] Vomiting gabapentin [From Neurontin] AdvReac Intermediate Nausea & Verified 02/22/19 07:50 Vomiting amantadine AdvReac Unknown Nausea & Verified 02/22/19 07:50 Vomiting Physical Examination - Vital Signs Vital Signs: Vital Signs Temp Pulse Pulse Resp BP BP Pulse Ox 02/22/19 07:40 97.7 F 67 14 125/74 97 02/22/19 07:00 76 16 134/80 98 02/22/19 06:14 97.3 F L 75 16 134/80 98 02/22/19 02:04 97.3 F L 70 18 146/80 97 Intake and Output 02/21/19 02/22/19 02/22/19 22:59 06:59 14:59 Output Total 100 Balance -100 Output: Urine 100 Straight 100 Other: Weight 111.13 kg 111.13 kg Gen.: Patient is well-nourished, well-developed and in no acute distress. HEENT: Head is atraumatic, normocephalic. Fundus not visualized.There is no scleral icterus. Mucous members are moist. Neck: Supple Heart: Regular rate and rhythm Lungs: Clear to auscultation Extremities: Without edema. There is ecchymosis in the medial right thigh. Neurological examination Mental status: Patient is awake, alert and oriented 3. His speech is clear. There is registration of 3/3 objects and recall of 1/3 objects after 5 minutes and distraction. There is no anomia. There is no right/left confusion. The patient is able to follow two-step commands. Cranial nerves: Pupils are equal, round and reactive to light. Visual mckeon are full to confrontation. Extract her muscles are intact. There no nystagmus. There is tingling response to light touch in the left V2 distribution. There is no facial asymmetry. Hearing is grossly intact. Uvula and palate are midli ne. Shoulder shrug is symmetric. Tongue protrudes midline. Motor: Right upper and lower extremity strength is 5/5. Left full decator operator strength 4/5. Left biceps and triceps 4-5/5. Left lower extremity strength 3-/5 proximally and 3/5 at the left ankle dorsiflexors. Sensation: There is allodynia in response to light touch of the left upper and lower extremity Coordination: There is a right tremor. There is bilateral dysmetria on finger to nose testing. There is slowing of rapid alternating movements bilaterally. Deep tendon reflexes: 2+/4+ in the upper extremities. 3+/4+ in the lower extremities. Gait: Not assessed The patient was observed to have a partial seizure involving tremor of his right upper extremity, during the examination. At this point in time the patient was awake, with eyes open. He was unable to respond. Results - Laboratory Findings CBC and BMP: 02/22/19 02:11 02/22/19 02:11 Abnormal Lab Findings: Abnormal Labs 02/22/19 02/22/19 02/22/19 02:11 02:11 02:13 RBC 3.87 L Hgb 12.4 L Hct 37.1 L BUN 36 H Creatinine 2.19 H Glucose 220 H POC Glucose (mg/dL) 217 H Urine Protein Urine Glucose (UA) Urine Ketones Urine Blood Urine Bacteria Hyaline Casts Urine Mucus U Marijuana (THC) Screen 02/22/19 02/22/19 03:25 03:33 RBC Hgb Hct BUN Creatinine Glucose POC Glucose (mg/dL) 192 H Urine Protein 1+ H Urine Glucose (UA) Trace H Urine Ketones 1+ H Urine Blood Trace H Urine Bacteria Rare H Hyaline Casts 43 H Urine Mucus Rare H U Marijuana (THC) Screen Detected H Assessment and Plan Assessment: Impressions/plan: 1) breakthrough seizure, with confusion, likely secondary to dehydration-I agree with IV fluids. We'll check EEG 2) multiple sclerosis-will consult physical therapy 3) diabetes mellitus with elevated blood sugar Time with Patient: Greater than 30 (patient was seen via teleneurology)
[2019-02-22 12:16] LABS: Glucose,Whole Blood 127 mg/dL (75-99)
[2019-02-22] MEDS ORDERED: LISINOPRIL-HCTZ 10-12.5 MG 1 EACH TAB PO SCH (12:30)
--- NOTE | 2019-02-22 15:57 | EEG ---
ELECTROENCEPHALOGRAM REPORT PROCEDURE DATE: 02/22/2019 ELECTROENCEPHALOGRAM (EEG) REPORT: TECHNIQUE: A routine 18 channel EEG was performed with video using the 10/20 electrode placement system. HISTORY: Recurrent daily seizures over the last 2 years. OTHER MEDICAL HISTORY: Includes renal disease, chronic pain, diabetes, memory loss. CURRENT MEDICATIONS: Fycompa, Zestril, Vimpat, vitamin D2, Cymbalta, Depakote. STUDY DURATION: 23 minutes. FINDINGS: BACKGROUND: The background activity consisted of unsustained 8-9 hertz rhythmic waveforms symmetrically distributed over both posterior quadrants. ACTIVATION: Hyperventilation: Not performed. Photic stimulation: Symmetric driving seen. Sleep: Drowsy and occasional stage II sleep noted. ABNORMALITIES: Occasional runs of frontally predominant delta range slowing were seen. IMPRESSION: Mildly abnormal EEG. The occasional runs of frontally predominant delta range slowing mentioned above are not epileptiform in nature. These findings indicate mild diffuse cerebral dysfunction which may in part be due to medication effect. These findings were called to the nurse taking care of the patient at 2:51 pm on 02/22/2019. MMODL / IJN: [id number] / GAEL
[2019-02-22 16:44] LABS: Glucose,Whole Blood 117 mg/dL (75-99)
[2019-02-22] MEDS: IBUPROFEN 800 MG TAB PO PRN (17:38)
[2019-02-22 20:58] LABS: Glucose,Whole Blood 167 mg/dL (75-99)
[2019-02-22] MEDS: ACETAMINOPHEN TAB 325 MG TAB PO PRN (21:25)
[2019-02-23] MEDS: SODIUM CHLORIDE 0.9% 1,000 ML IV SCH ×2 (00:32→09:07)
[2019-02-23] MEDS: DIVALPROEX ER 500 MG TAB.ER.24H PO SCH ×2 (00:32→07:42)
[2019-02-23 07:13] LABS: Glucose,Whole Blood 162 mg/dL (75-99)
[2019-02-23 07:17] LABS: Basophils % (A) 0 %; Eosinophils # (A) 0.1 k/uL (0-0.7); Eosinophils % (A) 1 %; HGB 11.8 gm/dL (13.0-17.5); Lymphocytes # (A) 1.3 k/uL (1.0-4.8); Lymphocytes % (A) 13 %; MCH 31.5 pg (25.0-35.0); MCHC 31.9 g/dL (31.0-37.0); MCV 98.9 fL (80.0-100.0); Mean Platelet Volume 7.3; Monocytes # (A) 0.8 k/uL (0-1.0); Monocytes % (A) 9 %; Neutrophils # (A) 7.3 k/uL (1.3-7.7); Neutrophils % (A) 75 %; Platelet Count 263 k/uL (150-450); RBC 3.74 m/uL (4.30-5.90); RDW 13.5 % (11.5-15.5); WBC 9.7 k/uL (3.8-10.6)
[2019-02-23 07:30] LABS: ALT 17 U/L (4-49); AST 26 U/L (17-59); African American GFR (CKD) >90 (>60 ml/min/1.73 sqM); Albumin 4.4 g/dL (3.5-5.0); Alkaline Phosphatase 78 U/L (38-126); Anion Gap 10 mmol/L; Blood Urea Nitrogen 23 mg/dL (9-20); Calcium 9.5 mg/dL (8.4-10.2); Carbon Dioxide 31 mmol/L (22-30); Chloride 102 mmol/L (98-107); Glucose 152 mg/dL (74-99); Non-African American GFR(CKD) >90 (>60 ml/min/1.73 sqM); Sodium 143 mmol/L (137-145); Total Bilirubin 0.7 mg/dL (0.2-1.3); Total Protein 7.3 g/dL (6.3-8.2)
[2019-02-23] MEDS: DULoxetine HCL 60 MG CAPSULE.DR PO SCH (07:42)
[2019-02-23] MEDS: ASPIRIN 81 MG PO SCH (07:42)
[2019-02-23] MEDS: ACETAMINOPHEN TAB 325 MG TAB PO PRN (07:42)
[2019-02-23] MEDS: LACOSAMIDE 150 MG TABLET PO SCH (07:42)
[2019-02-23] MEDS: IBUPROFEN 800 MG TAB PO PRN (07:42)
[2019-02-23] MEDS: PERAMPANEL PO SCH (07:58)
--- NOTE | 2019-02-23 09:47 | P.PN ---
Subjective Progress Note Date: 02/23/19 Principal diagnosis: Mental status change and seizure The patient reports feeling well today. He has been receiving IV fluids. He reports urinating frequently. He feels as if his thinking and speech have improved. Objective - Vital Signs Vital signs: Vital Signs Temp 98.5 F 02/23/19 00:41 Pulse 68 02/23/19 00:41 Resp 12 02/23/19 00:41 BP 114/67 02/23/19 00:41 Pulse Ox 96 02/23/19 00:41 Intake & Output 02/22/19 02/23/19 02/23/19 18:59 06:59 18:59 Intake Total 780 Balance 780 Weight 111.13 kg Intake: Oral 780 Other: # Voids 3 1 - Exam Gen.: The patient is seated in the bed. He is in no acute distress. Neurological: Pupils are equal, round and reactive to light. Extraocular movements are intact. There is no nystagmus. Optometry Teacher strength is equal at 5/5. Left upper extremity strength is 4-5/5. Right finger to nose testing is intact. There is dysmetria on left sided finger to nose testing. - Labs CBC & Chem 7: 02/23/19 06:43 02/23/19 06:43 Labs: Abnormal Lab Results - Last 24 Hours (Table) 02/22/19 02/22/19 02/22/19 Range/Units 12: 16:43 20:46 RBC (4.30-5.90) m/uL Hgb (13.0-17.5) gm/dL Hct (39.0-53.0) % Carbon Dioxide (22-30) mmol/L BUN (9-20) mg/dL Glucose (74-99) mg/dL POC Glucose (mg/dL) 127 H 117 H 167 H (75-99) mg/dL 02/23/19 02/23/19 02/23/19 Range/Units 06:43 06:43 07:04 RBC 3.74 L (4.30-5.90) m/uL Hgb 11.8 L (13.0-17.5) gm/dL Hct 37.0 L (39.0-53.0) % Carbon Dioxide 31 H (22-30) mmol/L BUN 23 H (9-20) mg/dL Glucose 152 H (74-99) mg/dL POC Glucose (mg/dL) 162 H (75-99) mg/dL Microbiology - Last 24 Hours (Table) 02/22/19 02:40 Blood Culture - Preliminary Blood No Growth after 24 hours Assessment and Plan Assessment: Impressions/plan: 1) breakthrough seizure, with confusion, likely secondary to dehydration-I agree with IV fluids. EEG negative for seizure activity 2) multiple sclerosis-will consult physical therapy-may be done as outpatient The patient is neurologically stable for discharge Plan: The patient should follow-up with his local neurologist. Time with Patient: Less than 30 (spent 20 minutes with patient via teleneurology)
[2019-02-23 10:55] VITALS: BP 133/85; PULSE 78; RESP 17; TEMP 97.5
[2019-02-23] MEDS ORDERED: INSULIN ASPART (NovoLOG) 100 UNIT/ML VIAL SQ SCH (12:30)
--- NOTE | 2019-03-04 21:56 | DS ---
DISCHARGE SUMMARY DATE OF ADMISSION: 02/22/2019 DATE OF DISCHARGE: 02/23/2019 CONDITION: Stable. PROGNOSIS: Guarded. Diet regular. DISCHARGE MEDICATIONS: 1. Motrin 800 t.i.d. 2. Cymbalta 60 daily. 3. AndroGel pump 2 applications topically every 48 hours. 4. Depakote ER 500 q.i.d. 5. Humalog before meals and at bedtime. 6. Zestoretic 12/21.5 one daily. 7. Aspirin 81 mg daily. 8. Fycompa 12 mg daily. 9. Baclofen 10 mg q.i.d. 10.Vitamin D 50,000 units weekly. 11.Wellbutrin XL 150 b.i.d. 12.Remeron 15 mg b.i.d. 13.Metformin 1000 mg b.i.d. 14.Cleocin 150 t.i.d. 15.Lipitor 10 mg daily. 16.Vimpat 200 mg b.i.d. 17.Rexulti 0.5 at bedtime. 18.Tylenol 500 mg q.6 hours p.r.n. The patient came into the hospital status post having periodontal teeth removed with anesthesia-induced delirium. The patient was dehydrated of a significant nature, unable to eat or drink and had delirium, which cleared up overnight with IV fluids. Due to severe dehydration and delirium secondary to anesthesia. The patient's diabetes was under control. His MS was under control. Brain CT was negative. Chest x-ray was negative. He was cleared for discharge. Follow up as an outpatient. MMODL / IJN: [id number] /
== END 2019-02-23 11:59 | disposition home or self-care (01) ==
LOC: EC 02:04 → 4SSUR 07:05
PROVIDERS: ADMIT Family Medicine; ATTEND Family Medicine
DX: E86.0 Dehydration (principal); N28.9 Disorder of kidney and ureter, unspecified; G40.909 Epilepsy, unspecified, not intractable, without status epilepticus; R27.8 Other lack of coordination; R41.82 Altered mental status, unspecified; K21.9 Gastro-esophageal reflux disease without esophagitis; M19.90 Unspecified osteoarthritis, unspecified site; K31.84 Gastroparesis; G35 Multiple sclerosis; Z87.442 Personal history of urinary calculi; E11.9 Type 2 diabetes mellitus without complications; H35.30 Unspecified macular degeneration; H26.9 Unspecified cataract; I51.7 Cardiomegaly; R41.3 Other amnesia; F41.9 Anxiety disorder, unspecified; F32.9 Major depressive disorder, single episode, unspecified; R07.0 Pain in throat; G47.30 Sleep apnea, unspecified; N17.0 Acute kidney failure with tubular necrosis; Z82.5 Family history of asthma and other chronic lower respiratory diseases; Z82.49 Family history of ischemic heart disease and other diseases of the circulatory system; Z79.82 Long term (current) use of aspirin; Z79.890 Hormone replacement therapy; Z79.4 Long term (current) use of insulin; Z79.899 Other long term (current) drug therapy; Z88.0 Allergy status to penicillin; Z88.8 Allergy status to other drugs, medicaments and biological substances
CPT/HCPCS: 96361 ×2; 96365; 99285; 36415; 95816; 93005; 80164; 80053 ×2; 83605; 84484; 85025 ×2; 85610; 85730; 81001; 87040; 80306; 71046; 70450; G0378 ×2; J0696

== ENCOUNTER → 2019-04-10 | Outpatient (CLI) | payer BC ==
[2019-04-11 01:19] LABS: Calcium 9.4 mg/dL (8.7-10.3)
== END | disposition home or self-care (01) ==
LOC: LABWHC1 17:07
PROVIDERS: ATTEND Psychiatry & Neurology Pain Medicine
DX: Z00.00 Encounter for general adult medical examination without abnormal findings (principal)
CPT/HCPCS: 36415; 82306; 82310

== ENCOUNTER 2019-05-05 12:17 | Inpatient (IN) | payer BC, MEDICARE ==
[2019-05-05 12:28] LABS: Glucose,Whole Blood 127 mg/dL (75-99)
[2019-05-05] MEDS ORDERED: SODIUM CHLORIDE 0.9% 1,000 ML IV ONE (12:38)
--- NOTE | 2019-05-05 12:44 | ED ---
General Adult HPI - General Chief complaint: Altered Mental Status Stated complaint: confusion, agitation Time Seen by Provider: 05/05/19 12:31 Source: patient, family, RN notes reviewed, old records reviewed Mode of arrival: wheelchair Limitations: altered mental status - History of Present Illness Initial comments: 53-year-old male presenting with confusion, agitation. History of memory impairment, seizure disorder, multiple sclerosis. Patient is accompanied by his who is able to give a detailed history. Symptoms began yesterday evening with some agitation and pacing. He's been mildly confused over the past 7 hours since awakening this morning. He is on multiple medications and medical marijuana. Patient has had no nausea vomiting, no fever. Similar episode 2 months ago which was treated with hydration and symptoms did improve at that time. He has a history of gastroparesis. No vomiting or diarrhea. No fever. No pain complaints. No focal numbness or weakness. - Related Data Home Medications Medication Instructions Recorded Confirmed Ibuprofen [Motrin] 800 mg PO TID 05/02/16 05/05/19 Divalproex ER [Depakote ER] 500 mg PO QID 03/18/17 05/05/19 Aspirin 81 mg PO DAILY 11/14/17 05/05/19 Baclofen 10 mg PO QID 11/14/17 05/05/19 INSULIN LISPRO (HumaLOG) [humaLOG] See Protocol SQ ACHS 11/14/17 05/05/19 Lisinopril-Hctz 10-12.5 mg 2 tab PO AC-LUNCH 11/14/17 05/05/19 [Zestoretic 10-12.5] Perampanel [Fycompa] 12 mg PO DAILY 11/14/17 05/05/19 Acetaminophen [Tylenol Extra 500 mg PO TID PRN 02/22/19 05/05/19 Strength] Atorvastatin [Lipitor] 10 mg PO W/LUNCH 02/22/19 05/05/19 Brexpiprazole [Rexulti] 0.5 mg PO HS 02/22/19 05/05/19 Lacosamide [Vimpat] 200 mg PO BID 02/22/19 05/05/19 buPROPion XL [Wellbutrin Xl] 150 mg PO BID 02/22/19 05/05/19 metFORMIN HCL 1,000 mg PO BID 02/22/19 05/05/19 Memantine [Namenda] 5 mg PO DAILY 05/05/19 05/05/19 Allergies Allergy/AdvReac Type Severity Reaction Status Date / Time Penicillins Allergy Severe Swelling Verified 05/05/19 12:29 prochlorperazine AdvReac Severe Hallucinati Verified 05/05/19 12:29 [From Compazine] ons prochlorperazine edisylate AdvReac Severe Hallucinati Verified 05/05/19 12:29 [From Compazine] ons prochlorperazine maleate AdvReac Severe Hallucinati Verified 05/05/19 12:29 [From Compazine] ons bupropion HCl AdvReac Intermediate Nausea & Verified 05/05/19 12:29 [From Wellbutrin] Vomiting gabapentin [From Neurontin] AdvReac Intermediate Nausea & Verified 05/05/19 12:29 Vomiting amantadine AdvReac Unknown Nausea & Verified 05/05/19 12:29 Vomiting Review of Systems ROS Statement: Those systems with pertinent positive or pertinent negative responses have been documented in the HPI. ROS Other: All systems not noted in ROS Statement are negative. Past Medical History Past Medical History: Chest Pain / Angina, Diabetes Mellitus, Eye Disorder, GERD/Reflux, Memory Impairment, Musculoskeletal Disorder, Neurologic Disorder, Osteoarthritis (OA), Renal Disease, Seizure Disorder Additional Past Medical History / Comment(s): other pmh: gastroperisis MS, active lesions in brain.stress test, lt kidney stone, cataracts, "macular degeneration", enlarged heart. History of Any Multi-Drug Resistant Organisms: None Reported Past Surgical History: Back Surgery, Heart Catheterization, Tonsillectomy Additional Past Surgical History / Comment(s): c spine, lumbar. spinal cord stimulator. VNS unit left chest. Past Anesthesia/Blood Transfusion Reactions: No Reported Reaction Past Psychological History: Anxiety, Depression Smoking Status: Never smoker Past Alcohol Use History: Occasional Past Drug Use History: Marijuana - Past Family History Mother Family Medical History: COPD, Hypertension Father Family Medical History: Coronary Artery Disease (CAD), Myocardial Infarction (AL) Additional Family Medical History / Comment(s): cabg General Exam Limitations: altered mental status General appearance: alert, in no apparent distress Head exam: Present: atraumatic, normocephalic Eye exam: Present: PERRL (Pupils are 7 mm bilaterally), EOMI Neck exam: Present: normal inspection, full ROM Respiratory exam: Present: normal lung sounds bilaterally. Absent: respiratory distress, wheezes Cardiovascular Exam: Present: regular rate, normal rhythm GI/Abdominal exam: Present: soft. Absent: distended, tenderness, guarding Extremities exam: Present: normal inspection Neurological exam: Present: alert, oriented X3, CN II-XII intact. Absent: motor sensory deficit Psychiatric exam: Present: agitated, anxious Skin exam: Present: warm, dry, intact. Absent: cyanosis, diaphoretic Course Vital Signs 05/05/19 12:24 Temperature 98.2 F Pulse Rate 73 Respiratory 20 Rate Blood Pressure 132/72 O2 Sat by Pulse 98 Oximetry EKG Findings - EKG Comments: EKG Findings:: EKG: Normal sinus rhythm, LVH no ST segment elevation, rate of 74, ND interval 174, QRS duration 112, QTC 4:30 Medical Decision Making - Medical Decision Making 53-year-old male presenting for acute confusion and agitation. Patient has a nonfocal exam, symptoms have been present for greater than [address] is obtained, negative for intracranial hemorrhage or mass effect. Chest x-ray negative for focal pneumonia. He has normal CBC, no leukocytosis, stable hemoglobin, he has a mildly elevated BUN consistent with some dehydration. Urinalysis is negative for infection. Given IV hydration and Ativan in the emergency department. Will be admitted for acute delirium, dehydration. Case is discussed with Dr. Khan who accepts admission. - Lab Data Result diagrams: 05/05/19 12:52 05/05/19 12:52 Lab Results 05/05/19 05/05/19 05/05/19 Range/Units 12:27 12:50 12:52 WBC 9.0 (3.8-10.6) k/uL RBC 3.58 L (4.30-5.90) m/uL Hgb 11.2 L (13.0-17.5) gm/dL Hct 33.4 L (39.0-53.0) % MCV 93.3 (80.0-100.0) fL MCH 31.4 (25.0-35.0) pg MCHC 33.6 (31.0-37.0) g/dL RDW 13.0 (11.5-15.5) % Plt Count 164 (150-450) k/uL Neutrophils % 80 % Lymphocytes % 10 % Monocytes % 8 % Eosinophils % 1 % Basophils % 0 % Neutrophils # 7.2 (1.3-7.7) k/uL Lymphocytes # 0.9 L (1.0-4.8) k/uL Monocytes # 0.7 (0-1.0) k/uL Eosinophils # 0.1 (0-0.7) k/uL Basophils # 0.0 (0-0.2) k/uL PT (9.0-12.0) sec INR (<1.2) APTT (22.0-30.0) sec Sodium (137-145) mmol/L Potassium (3.5-5.1) mmol/L Chloride (98-107) mmol/L Carbon Dioxide (22-30) mmol/L Anion Gap mmol/L BUN (9-20) mg/dL Creatinine (0.66-1.25) mg/dL Est GFR (CKD-EPI)AfAm (>60 ml/min/1.73 sqM) Est GFR (CKD-EPI)NonAf (>60 ml/min/1.73 sqM) Glucose (74-99) mg/dL POC Glucose (mg/dL) 127 H 128 H (75-99) mg/dL POC Glu [employer] Ani Urrutia Kylee Calcium (8.4-10.2) mg/dL Total Bilirubin (0.2-1.3) mg/dL AST (17-59) U/L ALT (4-49) U/L Alkaline Phosphatase (38-126) U/L Ammonia (<30) umol/L Troponin I (0.000-0.034) ng/mL Total Protein (6.3-8.2) g/dL Albumin (3.5-5.0) g/dL Urine Color Urine Appearance (Clear) Urine pH (5.0-8.0) Ur Specific Parker (1.001-1.035) Urine Protein (Negative) Urine Glucose (UA) (Negative) Urine Ketones (Negative) Urine Blood (Negative) Urine Nitrite (Negative) Urine Bilirubin (Negative) Urine Urobilinogen (<2.0) mg/dL Ur Leukocyte Esterase (Negative) Urine RBC (0-5) /hpf Urine WBC (0-5) /hpf Urine Opiates Screen (NotDetected) Ur Oxycodone Screen (NotDetected) Urine Methadone Screen (NotDetected) Ur Propoxyphene Screen (NotDetected) Ur Barbiturates Screen (NotDetected) U Tricyclic Antidepress (NotDetected) Ur Phencyclidine Scrn (NotDetected) Ur Amphetamines Screen (NotDetected) U Methamphetamines Scrn (NotDetected) U Benzodiazepines Scrn (NotDetected) Urine Cocaine Screen (NotDetected) U Marijuana (THC) Screen (NotDetected) 05/05/19 05/05/19 05/05/19 Range/Units 12:52 12:52 12:52 WBC (3.8-10.6) k/uL RBC (4.30-5.90) m/uL Hgb (13.0-17.5) gm/dL Hct (39.0-53.0) % MCV (80.0-100.0) fL MCH (25.0-35.0) pg MCHC (31.0-37.0) g/dL RDW (11.5-15.5) % Plt Count (150-450) k/uL Neutrophils % % Lymphocytes % % Monocytes % % Eosinophils % % Basophils % % Neutrophils # (1.3-7.7) k/uL Lymphocytes # (1.0-4.8) k/uL Monocytes # (0-1.0) k/uL Eosinophils # (0-0.7) k/uL Basophils # (0-0.2) k/uL PT 10.4 (9.0-12.0) sec INR 1.0 (<1.2) APTT 23.2 (22.0-30.0) sec Sodium 137 (137-145) mmol/L Potassium 3.4 L (3.5-5.1) mmol/L Chloride 96 L (98-107) mmol/L Carbon Dioxide 30 (22-30) mmol/L Anion Gap 11 mmol/L BUN 26 H (9-20) mg/dL Creatinine 1.08 (0.66-1.25) mg/dL Est GFR (CKD-EPI)AfAm >90 (>60 ml/min/1.73 sqM) Est GFR (CKD-EPI)NonAf 79 (>60 ml/min/1.73 sqM) Glucose 120 H (74-99) mg/dL POC Glucose (mg/dL) (75-99) mg/dL POC Glu [employer] Calcium 9.2 (8.4-10.2) mg/dL Total Bilirubin 0.5 (0.2-1.3) mg/dL AST 31 (17-59) U/L ALT 19 (4-49) U/L Alkaline Phosphatase 71 (38-126) U/L Ammonia 22 (<30) umol/L Troponin I (0.000-0.034) ng/mL Total Protein 7.1 (6.3-8.2) g/dL Albumin 4.4 (3.5-5.0) g/dL Urine Color Urine Appearance (Clear) Urine pH (5.0-8.0) Ur Specific Parker (1.001-1.035) Urine Protein (Negative) Urine Glucose (UA) (Negative) Urine Ketones (Negative) Urine Blood (Negative) Urine Nitrite (Negative) Urine Bilirubin (Negative) Urine Urobilinogen (<2.0) mg/dL Ur Leukocyte Esterase (Negative) Urine RBC (0-5) /hpf Urine WBC (0-5) /hpf Urine Opiates Screen (NotDetected) Ur Oxycodone Screen (NotDetected) Urine Methadone Screen (NotDetected) Ur Propoxyphene Screen (NotDetected) Ur Barbiturates Screen (NotDetected) U Tricyclic Antidepress (NotDetected) Ur Phencyclidine Scrn (NotDetected) Ur Amphetamines Screen (NotDetected) U Methamphetamines Scrn (NotDetected) U Benzodiazepines Scrn (NotDetected) Urine Cocaine Screen (NotDetected) U Marijuana (THC) Screen (NotDetected) 05/05/19 05/05/19 Range/Units 12:52 13:20 WBC (3.8-10.6) k/uL RBC (4.30-5.90) m/uL Hgb (13.0-17.5) gm/dL Hct (39.0-53.0) % MCV (80.0-100.0) fL MCH (25.0-35.0) pg MCHC (31.0-37.0) g/dL RDW (11.5-15.5) % Plt Count (150-450) k/uL Neutrophils % % Lymphocytes % % Monocytes % % Eosinophils % % Basophils % % Neutrophils # (1.3-7.7) k/uL Lymphocytes # (1.0-4.8) k/uL Monocytes # (0-1.0) k/uL Eosinophils # (0-0.7) k/uL Basophils # (0-0.2) k/uL PT (9.0-12.0) sec INR (<1.2) APTT (22.0-30.0) sec Sodium (137-145) mmol/L Potassium (3.5-5.1) mmol/L Chloride (98-107) mmol/L Carbon Dioxide (22-30) mmol/L Anion Gap mmol/L BUN (9-20) mg/dL Creatinine (0.66-1.25) mg/dL Est GFR (CKD-EPI)AfAm (>60 ml/min/1.73 sqM) Est GFR (CKD-EPI)NonAf (>60 ml/min/1.73 sqM) Glucose (74-99) mg/dL POC Glucose (mg/dL) (75-99) mg/dL POC Glu [employer] ID Calcium (8.4-10.2) mg/dL Total Bilirubin (0.2-1.3) mg/dL AST (17-59) U/L ALT (4-49) U/L Alkaline Phosphatase (38-126) U/L Ammonia (<30) umol/L Troponin I <0.012 (0.000-0.034) ng/mL Total Protein (6.3-8.2) g/dL Albumin (3.5-5.0) g/dL Urine Color Light Yellow Urine Appearance Clear (Clear) Urine pH 5.5 (5.0-8.0) Ur Specific Parker 1.008 (1.001-1.035) Urine Protein Negative (Negative) Urine Glucose (UA) Negative (Negative) Urine Ketones Negative (Negative) Urine Blood Trace H (Negative) Urine Nitrite Negative (Negative) Urine Bilirubin Negative (Negative) Urine Urobilinogen <2.0 (<2.0) mg/dL Ur Leukocyte Esterase Negative (Negative) Urine RBC 1 (0-5) /hpf Urine WBC 4 (0-5) /hpf Urine Opiates Screen Not Detected (NotDetected) Ur Oxycodone Screen Not Detected (NotDetected) Urine Methadone Screen Not Detected (NotDetected) Ur Propoxyphene Screen Not Detected (NotDetected) Ur Barbiturates Screen Not Detected (NotDetected) U Tricyclic Antidepress Not Detected (NotDetected) Ur Phencyclidine Scrn Not Detected (NotDetected) Ur Amphetamines Screen Not Detected (NotDetected) U Methamphetamines Scrn Not Detected (NotDetected) U Benzodiazepines Scrn Not Detected (NotDetected) Urine Cocaine Screen Not Detected (NotDetected) U Marijuana (THC) Screen Detected H (NotDetected) Disposition Clinical Impression: Multiple sclerosis, Altered mental status, Encephalopathy Disposition: ADMITTED IP TO THIS [facility] Condition: Stable Is patient prescribed a controlled substance at d/c from ED?: No Referrals: Bruce Khan MD [Primary Care Provider] - 1-2 days Decision to Admit Reason: Admit from EC Decision Date: 05/05/19 Decision Time: 14:29
[2019-05-05 12:52] LABS: Glucose,Whole Blood 128 mg/dL (75-99)
[2019-05-05 13:10] LABS: Basophils % (A) 0 %; Eosinophils # (A) 0.1 k/uL (0-0.7); Eosinophils % (A) 1 %; HCT 33.4 % (39.0-53.0); HGB 11.2 gm/dL (13.0-17.5); Lymphocytes # (A) 0.9 k/uL (1.0-4.8); Lymphocytes % (A) 10 %; MCH 31.4 pg (25.0-35.0); MCHC 33.6 g/dL (31.0-37.0); MCV 93.3 fL (80.0-100.0); Mean Platelet Volume 7.5; Monocytes # (A) 0.7 k/uL (0-1.0); Monocytes % (A) 8 %; Neutrophils # (A) 7.2 k/uL (1.3-7.7); Neutrophils % (A) 80 %; Platelet Count 164 k/uL (150-450); RBC 3.58 m/uL (4.30-5.90)
--- NOTE | 2019-05-05 13:10 | XR ---
EXAMINATION TYPE: XR chest 2V DATE OF EXAM: 05/05/2019 COMPARISON: 02/22/2019 HISTORY: Altered mental status and confusion. TECHNIQUE: Frontal and lateral views of the chest are obtained. FINDINGS: There is no focal air space opacity, pleural effusion, or pneumothorax seen. The cardiac silhouette size is within normal limits. The osseous structures are intact. Left-sided nerve root s timulator overlies the chest wall and additional nodular centimeters partially seen in the posterior thoracic spine. IMPRESSION: No acute cardiopulmonary process.
[2019-05-05 13:18] LABS: ALT 19 U/L (4-49); AST 31 U/L (17-59); African American GFR (CKD) >90 (>60 ml/min/1.73 sqM); Albumin 4.4 g/dL (3.5-5.0); Alkaline Phosphatase 71 U/L (38-126); Anion Gap 11 mmol/L; Blood Urea Nitrogen 26 mg/dL (9-20); Calcium 9.2 mg/dL (8.4-10.2); Carbon Dioxide 30 mmol/L (22-30); Chloride 96 mmol/L (98-107); Glucose 120 mg/dL (74-99); Non-African American GFR(CKD) 79 (>60 ml/min/1.73 sqM); Potassium 3.4 mmol/L (3.5-5.1); Sodium 137 mmol/L (137-145); Total Bilirubin 0.5 mg/dL (0.2-1.3); Total Protein 7.1 g/dL (6.3-8.2)
[2019-05-05 13:19] LABS: Partial Thromboplastin Time 23.2 sec (22.0-30.0); Prothrombin Time 10.4 sec (9.0-12.0)
[2019-05-05 13:44] LABS: Appearance,Urine Clear (Clear); Bilirubin,Urine Negative (Negative); Blood,Urine Trace (Negative); Color,Urine Light Yellow; Glucose,Urine (UA) Negative (Negative); Ketones,Urine Negative (Negative); Leukocyte Esterase,Urine Negative (Negative); Nitrite,Urine Negative (Negative); PH, Urine 5.5 (5.0-8.0); Protein,Urine Negative (Negative); RBC,Urine 1 /hpf (0-5); Specific Gravity,Urine 1.008 (1.001-1.035); Urobilinogen,Urine <2.0 mg/dL (<2.0); WBC,Urine 4 /hpf (0-5)
--- NOTE | 2019-05-05 13:46 | CT ---
EXAMINATION TYPE: CT brain wo con DATE OF EXAM: 05/05/2019 COMPARISON: 02/22/2019 HISTORY: altered mental status CT DLP: 1099.[address] of the brain was performed. The ventricles, basal cisterns and sulci overlying the cerebral convexities demonstrate mild enlargem ent. There is no evidence for intracranial hemorrhage or sulcal effacement. There is decreased attenuation about the periventricular white matter and deep white matter of both c erebral hemispheres, compatible with chronic small vessel ischemia. Differential diagnosis does inclu de demyelination. No mass effects are seen.No midline shift. Osseous calvarium is intact. If symptoms persist consider MRI. IMPRESSION: 1. Age related atrophic and chronic small vessel ischemic change without acute intracranial process s een at this time.
[2019-05-05 13:55] LABS: Amphetamine Screen,Urine Not Detected (NotDetected); Barbiturate Screen,Urine Not Detected (NotDetected); Benzodiazepines Screen,Urine Not Detected (NotDetected); Cocaine Screen,Urine Not Detected (NotDetected); Methadone Screen, Urine Not Detected (NotDetected); Opiate Screen,Urine Not Detected (NotDetected); Oxycodone Screen, Urine Not Detected (NotDetected); Phencyclidine Screen,Urine Not Detected (NotDetected); Tricyclic Antidepressant,Urine Not Detected (NotDetected); Urn Cannabinoid Scrn Detected (NotDetected)
[2019-05-05] MEDS ORDERED: LORazepam 2 MG/ML INJ IV STA ×2 (14:13→16:18)
[2019-05-05] MEDS ORDERED: LORazepam 2 MG/ML INJ IV PRN (14:26)
[2019-05-05] MEDS ORDERED: NALOXONE 0.4 MG/ML 1 ML VIAL IV PRN (14:26)
[2019-05-05] MEDS ORDERED: SODIUM CHLORIDE 0.9% 1,000 ML IV SCH (14:30)
[2019-05-05] MEDS: DIVALPROEX ER 500 MG TAB.ER.24H PO SCH ×2 (17:32→21:03)
[2019-05-05] MEDS: BACLOFEN 10 MG TAB PO SCH ×2 (17:32→21:02)
[2019-05-05] MEDS: SODIUM CHLORIDE 0.9% 1,000 ML IV SCH (17:36)
[2019-05-05 17:48] LABS: Glucose,Whole Blood 96 mg/dL (75-99)
[2019-05-05] MEDS ORDERED: HALOPERIDOL LACTATE 5 MG/ML 1 ML VIAL IM PRN (18:18)
[2019-05-05] MEDS: LORazepam 2 MG/ML INJ IV PRN ×2 (18:28→22:12)
[2019-05-05 20:07] LABS: Glucose,Whole Blood 128 mg/dL (75-99)
[2019-05-05] MEDS ORDERED: REXULTI 0.5 MG PO SCH (21:00)
[2019-05-05] MEDS: metFORMIN 500 MG TAB PO SCH (21:02)
[2019-05-05] MEDS: LACOSAMIDE 50 MG TABLET PO SCH (21:02)
[2019-05-05] MEDS: INSULIN ASPART (NovoLOG) 100 UNIT/ML VIAL SQ SCH (21:03)
[2019-05-05] MEDS: buPROPion XL 150 MG TAB.ER.24H PO SCH (21:03)
[2019-05-05] MEDS: REXULTI 0.5 MG PO SCH (21:20)
--- NOTE | 2019-05-05 23:28 | HP ---
HISTORY AND PHYSICAL CHIEF COMPLAINT: This is a 53-year-old white male who was admitted with confusion, agitation, altered mental status. He has had lots of stresses in his life, including going to a concert with sensory overload, drinking alcohol and being treated poorly by a psychologist in the last few days. He is agitated, pacing, dehydrated, mildly confused over the day. Similar episode 2 months ago, treated with IV hydration. No focal numbness or weakness. No pain control. HOME MEDICATIONS: 1. Motrin. 2. Depakote 500 q.i.d. 3. Aspirin 81 mg daily. 4. Baclofen 10 mg q.i.d. 5. Humalog before meals and at bedtime. 6. Lisinopril/hydrochlorothiazide 10/12.5 one a day. 7. Fycompa 12 mg daily. 8. Lipitor 10 mg daily. 9. Rexulti 0.5 at bedtime. 10.Vimpat 200 mg b.i.d. 11.Wellbutrin XL 150 p.o. b.i.d. 12.Metformin 1000 b.i.d. 13.Namenda 5 mg daily. ALLERGIES: PENICILLINS, COMPAZINE, WELLBUTRIN, NEURONTIN, AMANTADINE. REVIEW OF SYSTEMS: Fourteen-point review of systems negative except as mentioned in HPI. PAST MEDICAL HISTORY: Chest pain, angina, diabetes mellitus, eye disorder, GERD, memory impairment, musculoskeletal disorder, neurologic disorder, osteoarthritis, renal disease, seizure disorder, gastroparesis, MS lesions, cataract, left kidney stone, macular degeneration, large heart. SURGERIES: Back surgery, heart catheterization, tonsillectomy. FAMILY HISTORY: Mother with COPD, hypertension. Father with coronary artery disease, myocardial infarction. PHYSICAL EXAMINATION: Vital signs stable. Afebrile. Temperature 98.2, pulse 73, respiratory rate 20, blood pressure 132/72. CARDIOVASCULAR: S1, S2. LUNGS: Scattered wheeze. HEMATOLOGY: Negative Homans. VASCULAR: Normal dorsalis pedis, posterior tibial, radial pulse. OPHTHALMOLOGIC: Pupils equal, round, reactive to light and accommodation. NEUROLOGIC: Alert and oriented x3. Cranial nerves are intact. SKIN: Warm and dry. EKG sinus rhythm, LVH, no ST-T changes. ASSESSMENT: 1. Acute panic attack. 2. Anxiety attack. 3. Acute neurologic changes. 4. Dehydration. 5. Prerenal azotemia. Continue with rehydration, Ativan. Possibly Haldol will be given for acute delirium, dehydration, possible psychotic break. Await psychiatry consult. Please see further orders. CT scan of the brain was negative. MMODL / IJN: [id number] /
[2019-05-06] MEDS: SODIUM CHLORIDE 0.9% 1,000 ML IV SCH ×3 (02:36→21:20)
[2019-05-06] MEDS: LORazepam 2 MG/ML INJ IV PRN ×4 (03:17→21:20)
[2019-05-06 07:52] LABS: Glucose,Whole Blood 126 mg/dL (75-99)
[2019-05-06] MEDS: ASPIRIN 81 MG PO SCH (08:01)
[2019-05-06] MEDS: ATORVASTATIN 10 MG TAB PO SCH (08:01)
[2019-05-06] MEDS: metFORMIN 500 MG TAB PO SCH ×2 (08:01→21:16)
[2019-05-06] MEDS: buPROPion XL 150 MG TAB.ER.24H PO SCH ×2 (08:01→21:17)
[2019-05-06] MEDS: MEMANTINE 5 MG TAB PO SCH (08:01)
[2019-05-06] MEDS: DIVALPROEX ER 500 MG TAB.ER.24H PO SCH ×4 (08:01→21:16)
[2019-05-06] MEDS: BACLOFEN 10 MG TAB PO SCH ×4 (08:01→21:19)
[2019-05-06] MEDS: LACOSAMIDE 50 MG TABLET PO SCH ×2 (08:06→21:15)
[2019-05-06] MEDS: INSULIN ASPART (NovoLOG) 100 UNIT/ML VIAL SQ SCH ×4 (08:06→21:41)
[2019-05-06] MEDS: FYCOMPA 12 MG PO SCH (08:07)
[2019-05-06 09:17] LABS: Basophils % (A) 0 %; Eosinophils # (A) 0.1 k/uL (0-0.7); Eosinophils % (A) 1 %; HGB 10.8 gm/dL (13.0-17.5); Lymphocytes # (A) 0.7 k/uL (1.0-4.8); Lymphocytes % (A) 13 %; MCH 31.1 pg (25.0-35.0); MCHC 32.7 g/dL (31.0-37.0); Mean Platelet Volume 7.7; Monocytes # (A) 0.4 k/uL (0-1.0); Monocytes % (A) 8 %; Neutrophils # (A) 4.1 k/uL (1.3-7.7); Neutrophils % (A) 77 %; Platelet Count 154 k/uL (150-450); RBC 3.47 m/uL (4.30-5.90); RDW 13.2 % (11.5-15.5); WBC 5.4 k/uL (3.8-10.6)
[2019-05-06 09:37] LABS: ALT 20 U/L (4-49); AST 29 U/L (17-59); African American GFR (CKD) >90 (>60 ml/min/1.73 sqM); Alkaline Phosphatase 67 U/L (38-126); Anion Gap 9 mmol/L; Blood Urea Nitrogen 20 mg/dL (9-20); Calcium 9.2 mg/dL (8.4-10.2); Carbon Dioxide 31 mmol/L (22-30); Chloride 102 mmol/L (98-107); Glucose 118 mg/dL (74-99); Non-African American GFR(CKD) >90 (>60 ml/min/1.73 sqM); Potassium 3.5 mmol/L (3.5-5.1); Sodium 142 mmol/L (137-145); Total Bilirubin 0.4 mg/dL (0.2-1.3); Total Protein 6.6 g/dL (6.3-8.2)
[2019-05-06 12:04] LABS: Glucose,Whole Blood 98 mg/dL (75-99)
--- NOTE | 2019-05-06 14:37 | P.CN ---
Psychiatric Consult - . Consult date: 05/06/19 Consult:: IDENTIFYING DATA: He is a 53-year-old male admitted to medicine service with an acute onset of confusion, agitation and altered mental status. The hospitalist submitted a consult to evaluate patient for panic attack, anxi ety and depression. HISTORY OF PRESENT ILLNESS: I reviewed the medical record, interviewed the patient and also spoke with his Jessica who provided much of the history. She stated that on the morning of admission he woke up acutely agitated, restless and irritable. He has had similar episodes in the past that required emergency medical care and resolved with hydration. She brought him to the emergency room concerned that he may have become dehydrated again. He has a complicated history with multiple diagnoses including chronic back pain, iatrogenic opiate use disorder, seizure disorder and multiple sclerosis. He was diagnosed with multiple sclerosis at [facility] in 1999. He has had several "attacks" since the initial diagnosis. In the past his "attacks" are characterized by left sided weakness. Jessica described a change in his personality beginning since February. Normally he is a calm and conservative person. Since February he has been more irritable and impatient. She is concerned he is also now using profanity; He has never used profanity in his life before. She also noticed that he appears more emotionally labile and in addition to irritability has periods of depression with crying. His noticed that he has word finding difficulty and he has slurring his words. The slurring worsens during times of intense emotion. He is distressed by the effects of his multiple illnesses on his life and his ability to function. As a result of this seizure disorder, chronic back pain and multiple sclerosis he is unable to work. During a recent visit to his neurologist the systems security consultant psychologist express concern about his ability to drive. 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 He described feelings of depression uncomplicated by suicidal thoughts or wishes. He denied persistent anxiety that he is unable to control. He remains distressed and worried about his medical conditions and his impairment in functioning but he did not describe periods of anxiety that built up to crescendo consistent with panic attack. He denied obsessions or compulsions. He denied experiencing such psychotic symptoms as hallucinations, ideas reference, thought insertion set her up. He denied use of alcohol and denied use of drugs. PAST PSYCHIATRIC HISTORY: He denied history of psychiatric hospitalizations or mental health treatment. PAST MEDICAL HISTORY: Diabetes mellitus, chronic back pain, seizure disorder, pseudoseizures, multiple sclerosis, gastroparesis, macular degeneration. ALLERGIES: Penicillins, prochlorperazine. SUBSTANCE USE HISTORY: He has history of OxyContin dependence. He was prescribed OxyContin for approximately 10 years for the treatment of chronic back pain. His reported that he stopped OxyContin without professional intervention.. FAMILY PSYCHIATRIC/SUBSTANCE USE HISTORY: He denied history of psychiatric or substance use problems in his family.. SOCIAL HISTORY: He is has 3 children and 3 grandchildren. He is currently unemployed and receives social security disability and a pension. 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 MENTAL STATUS EXAM: He presented as a casually groomed 53-year-old male who was pleasant on approach. He made eye contact but appeared to have difficulty attending to the interview. He had no distinguishing features or prominent physical abnormalities. He is distressed facial expression and cried intermittently during the interview. He was alert and oriented to person, place and time. He showed psychomotor retardation but no abnormal movements. I did not evaluate his gait. His speech was dysarthric and slow with decreased volume and rhythm. His affect was labile. He denied suicidal ideation, wishes homicidal ideation. He expressed feelings of hopelessness and helplessness regarding his chronic medical illnesses and the impact of illnesses on his functioning. He did not express ideas reference, paranoid ideation or delusions. His thinking was concrete but his associations appeared logical and goal directed. He denied hallucinations did not appear to be responding to internal stimuli. We completed the Mini-Mental State Examination. His total score was 24/30 which is just at the abnormal range. Usually, a score of less than 23 is consistent with a dementia for an individual with a high school education. He showed impairments with concentration, attention and short-term memory. IMPRESSIONS: He has a 53-year-old male with multiple medical problems including multiple sclerosis. He [facility] with acute onset of agitation, confusion and altered mental status. I obtain much information from his as he had difficulty explaining the reason for his presentation to the Medical Center. His described a change in personality with increased irritability, decreased frustration tolerance and increased use of profanity beginning approximately 2 months ago. He is also having increasing difficulty with word finding and is demonstrating more emotional lability. He appears depressed and described some symptoms depression uncomplicated by suicidality or psychosis. I suspect that the acute changes are related to his multiple sclerosis as are the reported changes in personality and expressive ability. There is no indication for transfer to psychiatric unit at this time but he would benefit from outpatient mental health services. 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 He may benefit empirical trial of other psychotropic medications including second generation antipsychotics but this should be managed by a psychiatrist as outpatient. Consult with geriatric social worker regarding referral for outpatient psychiatric treatment. Thank you for this consult. Will follow. 05/06/19 14:06
[2019-05-06 16:54] LABS: Glucose,Whole Blood 100 mg/dL (75-99)
[2019-05-06] MEDS: REXULTI 0.5 MG PO SCH (21:17)
[2019-05-06 21:36] LABS: Glucose,Whole Blood 103 mg/dL (75-99)
--- NOTE | 2019-05-06 22:11 | PN ---
PROGRESS NOTE This is a white male who appears to be severely in some kind of mental status break versus acute neurologic reaction. We have no neurologist here. Possibly he will be discharged home in the next 24 to 48 hours to [facility], as we have no neurology wheel and pinion inspector here. Wait to hear from his neurologist, Dr. Chang, what he recommends. Psychiatry recommended current medications and recommended some further neurologic testing for possible MS. The patient has been sedated, but when he wakes up he is severely anxious, making neurologic motions and confusion and agitation and aggressive behavior for unclear reasons. He will possibly be transferred down to [facility] tomorrow. DANA / ROBERTON: [id number] /
[2019-05-07] MEDS: LORazepam 2 MG/ML INJ IV PRN ×4 (03:22→19:38)
[2019-05-07 06:41] LABS: Glucose,Whole Blood 120 mg/dL (75-99)
[2019-05-07] MEDS: DIVALPROEX ER 500 MG TAB.ER.24H PO SCH ×4 (08:17→21:37)
[2019-05-07] MEDS: metFORMIN 500 MG TAB PO SCH ×2 (08:17→21:37)
[2019-05-07] MEDS: BACLOFEN 10 MG TAB PO SCH ×4 (08:17→21:37)
[2019-05-07] MEDS: MEMANTINE 5 MG TAB PO SCH (08:17)
[2019-05-07] MEDS: buPROPion XL 150 MG TAB.ER.24H PO SCH ×2 (08:17→21:36)
[2019-05-07] MEDS: ASPIRIN 81 MG PO SCH (08:18)
[2019-05-07] MEDS: ATORVASTATIN 10 MG TAB PO SCH (08:18)
[2019-05-07] MEDS: INSULIN ASPART (NovoLOG) 100 UNIT/ML VIAL SQ SCH ×4 (08:18→21:37)
[2019-05-07] MEDS: SODIUM CHLORIDE 0.9% 1,000 ML IV SCH ×2 (08:20→19:35)
[2019-05-07] MEDS: LACOSAMIDE 50 MG TABLET PO SCH ×2 (08:20→21:36)
[2019-05-07] MEDS: FYCOMPA 12 MG PO SCH (08:21)
[2019-05-07 11:33] LABS: Glucose,Whole Blood 106 mg/dL (75-99)
[2019-05-07 17:00] LABS: Glucose,Whole Blood 90 mg/dL (75-99)
[2019-05-07] MEDS: ACETAMINOPHEN TAB 500 MG TAB PO PRN (19:38)
[2019-05-07 20:41] LABS: Glucose,Whole Blood 161 mg/dL (75-99)
[2019-05-07] MEDS: REXULTI 0.5 MG PO SCH (21:36)
--- NOTE | 2019-05-07 23:40 | PN ---
PROGRESS NOTE This patient is a 53-year-old white male who was admitted with MS exacerbation, altered mental status, dehydration, aggressive behavior, paranoid ideations. Psychiatry saw him and recommended he be treated by Neurology. He was accepted for transfer down to [facility]; wait for a bed to be transferred down. Signed off the case to the people at [facility]. DANA / ADAMA: [id number] /
[2019-05-08] MEDS ORDERED: LORazepam 2 MG/ML INJ ONE (05:05)
[2019-05-08] MEDS: SODIUM CHLORIDE 0.9% 1,000 ML IV SCH ×2 (05:22→13:16)
[2019-05-08] MEDS: ACETAMINOPHEN TAB 500 MG TAB PO PRN (06:26)
[2019-05-08 07:28] LABS: Glucose,Whole Blood 102 mg/dL (75-99)
[2019-05-08] MEDS: ASPIRIN 81 MG PO SCH (07:56)
[2019-05-08] MEDS: DIVALPROEX ER 500 MG TAB.ER.24H PO SCH ×3 (07:56→16:54)
[2019-05-08] MEDS: metFORMIN 500 MG TAB PO SCH (07:56)
[2019-05-08] MEDS: buPROPion XL 150 MG TAB.ER.24H PO SCH (07:56)
[2019-05-08] MEDS: BACLOFEN 10 MG TAB PO SCH ×3 (07:57→16:54)
[2019-05-08] MEDS: LACOSAMIDE 50 MG TABLET PO SCH (07:57)
[2019-05-08] MEDS: INSULIN ASPART (NovoLOG) 100 UNIT/ML VIAL SQ SCH ×3 (07:57→16:55)
[2019-05-08] MEDS: MEMANTINE 5 MG TAB PO SCH (07:57)
[2019-05-08] MEDS: FYCOMPA 12 MG PO SCH (07:58)
[2019-05-08] MEDS: LORazepam 2 MG/ML INJ IV PRN ×3 (08:10→14:40)
[2019-05-08 09:40] LABS: HCT 31.2 % (39.0-53.0); HGB 10.4 gm/dL (13.0-17.5); MCH 31.7 pg (25.0-35.0); MCHC 33.4 g/dL (31.0-37.0); Mean Platelet Volume 8.5; Platelet Count 146 k/uL (150-450); RBC 3.28 m/uL (4.30-5.90); RDW 13.1 % (11.5-15.5); WBC 5.6 k/uL (3.8-10.6)
[2019-05-08] MEDS ORDERED: MEMANTINE 5 MG TAB PO ONE (09:58)
[2019-05-08 10:14] LABS: African American GFR (CKD) >90 (>60 ml/min/1.73 sqM); Anion Gap 6 mmol/L; Blood Urea Nitrogen 19 mg/dL (9-20); Carbon Dioxide 30 mmol/L (22-30); Chloride 107 mmol/L (98-107); Glucose 98 mg/dL (74-99); Magnesium 1.7 mg/dL (1.6-2.3); Non-African American GFR(CKD) >90 (>60 ml/min/1.73 sqM); Potassium 3.3 mmol/L (3.5-5.1); Sodium 143 mmol/L (137-145)
[2019-05-08 10:19] LABS: Valproic Acid (Depakene) 68.2 ug/mL
[2019-05-08] MEDS ORDERED: Potassium Replacement Protocol 1 EACH MISC MISCELLANE PRN (10:22)
[2019-05-08] MEDS ORDERED: Magnesium Replacement Protocol 1 EACH MISC MISCELLANE PRN (10:22)
--- NOTE | 2019-05-08 10:52 | P.DS ---
Providers Date of admission: 05/05/19 14:26 Expected date of discharge: 05/08/19 Attending physician: Bruce Khan Consults: 05/05/19 16:59 Consult Physician Urgent Consulting Provider: Jayy Michael Consult Reason/Comments: panic attack/anxiety/depression Do you want consulting provider notified?: Yes Primary care physician: [facility] Course: Final Diagnoses: Acute mental status changes, acute panic attack, acute metabolic encephalopathy, etiology unclear Multiple sclerosis, Depression Mild neurocognitive disorder, Mini mental status exam score 24/30 Dehydration Acute renal failure, prerenal secondary to the above, improved with IV fluid hydration. This is a 53-year-old gentleman with history of seizure disorder, multiple sclerosis, and multiple other medical issues admitted with confusion, agitation, acute metabolic encephalopathy, delirium, dehydration, on medical marijuana. Head CT reported age-related atrophy, chronic small vessel ischemic change without acute intracranial process chest x-ray reported negative for focal pneumonia. UA negative ,CBC WNL, no leukocytosis, stable hemoglobin. Valproic acid level 68.2. Received IV fluid hydration. Evaluated by psychiatry, recommending neurology evaluation. Patient requires neurology evaluation, Currently no available neurology services available at this site. Patient has been accepted at [facility] for transfer after discussing the case with Dr. Khan,PCP. [facility] reports expected bed this afternoon. Unable to complete Brain MRI here, related to VNS stimulators.. Psychiatry reconsulted. updated at bedside. Patient is being transferred to [facility] in a stable condition with guarded prognosis. PHYSICAL EXAM: VITAL SIGNS: [As above] GENERAL: Sitting up in bed, crying, rocking HEENT: Conjunctivae normal. eyes normal. NECK: No JVD. No thyroid enlargement. No LNs CARDIOVASCULAR: S1, S2 regular.. No murmur RESPIRATION: Breath sounds diminished in the bases. No rhonchi or crackles. No bronchial breathing. ABDOMEN: Soft, nontender . No guarding. no masses palpable. No ascites, No hepatosplenomegaly.Bowel sounds heard. LEGS: No edema. no swelling PSYCHIATRY: Alert and oriented X2, crying, anxious, agitated NERVOUS SYSTEM: Cranial N 2-12 grossly normal. Diffuse weakness, No gross focal deficits. Skin: Right ankle small nickel size dried chronic wound/abrasion, no rash The impression and plan of care has been dictated as directed. : I performed a history and examination of this patient, discussed the same with the dictator. I agree with the dictator's note ,documented as a scribe. Any additional findings or plans will be noted. Patient Condition at Discharge: Stable Plan - Discharge Summary Discharge Rx Participant: No New Discharge Prescriptions: New Memantine [Namenda] 10 mg PO DAILY tab SILVER sulfADIAZINE CREAM [Silvadene Cream] 1 applic TOPICAL DAILY applic Continue Divalproex ER [Depakote ER] 500 mg PO QID INSULIN LISPRO (HumaLOG) [humaLOG] See Protocol SQ ACHS Aspirin 81 mg PO DAILY Perampanel [Fycompa] 12 mg PO DAILY Baclofen 10 mg PO QID buPROPion XL [Wellbutrin XL] 150 mg PO BID metFORMIN HCL 1,000 mg PO BID Atorvastatin [Lipitor] 10 mg PO W/LUNCH Lacosamide [Vimpat] 200 mg PO BID Brexpiprazole [Rexulti] 0.5 mg PO HS Acetaminophen [Tylenol Extra Strength] 500 mg PO TID PRN PRN Reason: Pain Discontinued Ibuprofen [Motrin] 800 mg PO TID Lisinopril-Hctz 10-12.5 mg [Zestoretic 10-12.5] 2 tab PO AC-LUNCH Memantine [Namenda] 5 mg PO DAILY Discharge Medication List Divalproex ER [Depakote ER] 500 mg PO QID 03/18/17 [History] Aspirin 81 mg PO DAILY 11/14/17 [History] Baclofen 10 mg PO QID 11/14/17 [History] INSULIN LISPRO (HumaLOG) [humaLOG] See Protocol SQ ACHS 11/14/17 [History] Perampanel [Fycompa] 12 mg PO DAILY 11/14/17 [History] Acetaminophen [Tylenol Extra Strength] 500 mg PO TID PRN 02/22/19 [History] Atorvastatin [Lipitor] 10 mg PO W/LUNCH 02/22/19 [History] Brexpiprazole [Rexulti] 0.5 mg PO HS 02/22/19 [History] Lacosamide [Vimpat] 200 mg PO BID 02/22/19 [History] buPROPion XL [Wellbutrin XL] 150 mg PO BID 02/22/19 [History] metFORMIN HCL 1,000 mg PO BID 02/22/19 [History] Memantine [Namenda] 10 mg PO DAILY tab 05/08/19 [Rx] SILVER sulfADIAZINE CREAM [Silvadene Cream] 1 applic TOPICAL DAILY applic 05/08/19 [Rx] Follow up Appointment(s)/Referral(s): Bruce Khan MD [Primary Care Provider] - 1-2 days
[2019-05-08] MEDS: DRONABINOL 2.5 MG CAP PO SCH ×2 (11:24→16:54)
[2019-05-08] MEDS: ATORVASTATIN 10 MG TAB PO SCH (11:24)
[2019-05-08 11:52] LABS: Glucose,Whole Blood 115 mg/dL (75-99)
--- NOTE | 2019-05-08 12:28 | P.CON ---
Consult Note - . 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 His informing that they are awaiting a bed for transfer to the neurology service at [facility]. He was distressed by this plan. He would rather "go home" and have his take him to [facility] when a bed becomes available. He was somewhat depressed during interview and cried intermittently. He talked about losses as a result of his illnesses. He expressed feelings of hopelessness, helplessness and worthlessness but denied suicidal ideation, inten t or plan. He expressed positive thoughts. He is proud of his children and bragged about his weight loss. Mental status exam: He presented as a casually groomed 53-year-old male who was pleasant on approach. He made eye contact and attended to interview. His speech was dysarthric. His mood was labile and at times intense and not appropriate to the context of the conversation. He denied suicidal ideation, wishes or homicidal ideation. He expressed depressive cognitions as mentioned above. He ruminated about the effects of his illnesses on his ability to work and engage of many his former activities. He did not express ideas reference, paranoid ideation or delusions. His thinking was concrete but his associations were coherent, logical and goal directed. He denied hallucinations did not appear to be responding to internal stimuli. Assessment: He appears more emotionally labile and demonstrated fairly dramatic swings of mood during our conversation suggestive of a pseudobulbar emotionalism. Plan: Continue Wellbutrin XL 150 mg twice a day and Namenda 10 mg daily. He may benefit from a trial of Neudexta but but will defer this recommendation to [facility] Neurology. I will sign off.
[2019-05-08 15:22] VITALS: BP 168/76; PULSE 64; RESP 14; TEMP 97.9
[2019-05-08 16:56] LABS: Glucose,Whole Blood 98 mg/dL (75-99)
[2019-05-09] MEDS ORDERED: MEMANTINE 10 MG TAB PO SCH (09:00)
== END 2019-05-08 17:27 | disposition short-term general hospital (02) | DRG 71 ==
LOC: EC 12:17 → 6NMEDSUR 14:26 → OBSVTOIN 05-08 08:43
PROVIDERS: ADMIT Family Medicine; ATTEND Family Medicine
DX: G93.41 Metabolic encephalopathy (principal); N17.9 Acute kidney failure, unspecified; G35 Multiple sclerosis; G40.909 Epilepsy, unspecified, not intractable, without status epilepticus; F41.0 Panic disorder [episodic paroxysmal anxiety]; E11.43 Type 2 diabetes mellitus with diabetic autonomic (poly)neuropathy; E86.0 Dehydration; F32.9 Major depressive disorder, single episode, unspecified; F41.1 Generalized anxiety disorder; G31.84 Mild cognitive impairment of uncertain or unknown etiology; K31.84 Gastroparesis; H26.9 Unspecified cataract; H35.30 Unspecified macular degeneration; K21.9 Gastro-esophageal reflux disease without esophagitis; M19.90 Unspecified osteoarthritis, unspecified site; R79.89 Other specified abnormal findings of blood chemistry; Z79.82 Long term (current) use of aspirin; Z79.84 Long term (current) use of oral hypoglycemic drugs; Z79.899 Other long term (current) drug therapy; Z87.442 Personal history of urinary calculi; Z88.0 Allergy status to penicillin; Z88.8 Allergy status to other drugs, medicaments and biological substances; Z82.49 Family history of ischemic heart disease and other diseases of the circulatory system; Z82.5 Family history of asthma and other chronic lower respiratory diseases
CPT/HCPCS: 36415; 70450; 71046; 80048; 80053; 80164; 80306; 81001; 82140; 83735; 84484; 85025; 85027; 85610; 85730; 93005; 96361; 96374; 96376; 99285

== ENCOUNTER 2019-05-18 03:17 | Observation (INO) | payer BC, MEDICARE ==
[2019-05-18] MEDS ORDERED: LORazepam 2 MG/ML INJ IV STA ×2 (03:40→06:34)
[2019-05-18 04:10] LABS: Basophils % (A) 1 %; Eosinophils # (A) 0.1 k/uL (0-0.7); Eosinophils % (A) 2 %; HCT 37.8 % (39.0-53.0); HGB 12.1 gm/dL (13.0-17.5); Lymphocytes # (A) 0.9 k/uL (1.0-4.8); Lymphocytes % (A) 12 %; MCH 30.2 pg (25.0-35.0); MCHC 32.1 g/dL (31.0-37.0); MCV 94.1 fL (80.0-100.0); Mean Platelet Volume 7.5; Monocytes % (A) 14 %; Neutrophils # (A) 5.1 k/uL (1.3-7.7); Neutrophils % (A) 69 %; Platelet Count 252 k/uL (150-450); RBC 4.01 m/uL (4.30-5.90); RDW 13.4 % (11.5-15.5); WBC 7.3 k/uL (3.8-10.6)
[2019-05-18 04:18] LABS: Albumin 4.9 g/dL (3.5-5.0); Calcium 10.1 mg/dL (8.4-10.2); Potassium 3.9 mmol/L (3.5-5.1); Total Bilirubin 0.5 mg/dL (0.2-1.3); Total Protein 7.7 g/dL (6.3-8.2)
--- NOTE | 2019-05-18 04:29 | CT ---
EXAMINATION TYPE: CT abdomen pelvis wo con DATE OF EXAM: 05/18/2019 COMPARISON: 01/19/2018 HISTORY: Abdominal pain CT DLP: mGycm Automated exposure control for dose reduction was used. Images were obtained from the diaphragm to the floor the pelvis with no contrast. Lung bases are clear of infiltrate. There is no pleural effusion. Heart size is fairly normal. There is no pericardial effusion. Liver spleen stomach pancreas appear normal. Gallbladder appears normal. Bile ducts are not dilated. There is no adrenal mass. Kidneys have normal size. There is no hydronephrosis. There is 1 cm calculu s interpolar left kidney. There is 2 mm calculus lateral left kidney. There is 1 mm calculus medial r ight kidney. Ureters are not dilated. There is no hydronephrosis. There is no retroperitoneal adenopathy. Bladder distends smoothly. There is no inguinal hernia. There is no free fluid in the pelvis. The appendix is posterior and appears normal. There is no mesenteric edema. There is no ascites or free air. There is implant device over the left lower lumbar spine. Th ere is posterior fusion surgery in the lower lumbar spine. Bony pelvis is intact. Hip joints are inta ct. There is no evidence of a bowel obstruction. There is 25% anterior wedging of L1 vertebra. There is no evidence of spinal stenosis. There is a fir st-degree L5-S1 spondylolisthesis. IMPRESSION: Old mild L1 compression fracture unchanged. Normal appendix. Nonobstructing bilateral renal calculi unchanged. No sign of acute abdomen and pelvis.
[2019-05-18] MEDS ORDERED: SODIUM CHLORIDE 0.9% 1,000 ML IV ONE ×2 (05:43→06:21)
[2019-05-18] MEDS ORDERED: NALOXONE 0.4 MG/ML 1 ML VIAL IV PRN (06:18)
[2019-05-18] MEDS ORDERED: SODIUM CHLORIDE 0.9% 1,000 ML IV SCH (06:30)
--- NOTE | 2019-05-18 06:33 | ED ---
General Adult HPI - General Chief complaint: Anxiety Stated complaint: Anxiety, Medication Reaction Time Seen by Provider: 05/18/19 03:29 Source: patient, family Mode of arrival: ambulatory Limitations: altered mental status, physical limitation - History of Present Illness Initial comments: Patient's 54-year-old man here with family for shaking episodes. The patient had been seen about these recently and had been transferred to [facility] where he was seen and cleared. Over the course of tonight and into the morning here he has been increasingly anxious and family states he will not stop shaking. Patient not able to give much history. He is alert and does respond to simple yes no questions. He does state that he has been having chronic back pain -: hour(s) Consistency: constant Improves with: none Worsens with: none Associated Symptoms: denies other symptoms Treatments Prior to Arrival: none - Related Data Home Medications Medication Instructions Recorded Confirmed Divalproex ER [Depakote ER] 500 mg PO QID 03/18/17 05/18/19 Aspirin 81 mg PO DAILY 11/14/17 05/18/19 Baclofen 10 mg PO QID 11/14/17 05/18/19 INSULIN LISPRO (HumaLOG) [humaLOG] See Protocol SQ ACHS 11/14/17 05/18/19 Acetaminophen [Tylenol Extra 500 mg PO TID PRN 02/22/19 05/18/19 Strength] Atorvastatin [Lipitor] 10 mg PO W/LUNCH 02/22/19 05/18/19 Lacosamide [Vimpat] 200 mg PO BID 02/22/19 05/18/19 metFORMIN HCL 1,000 mg PO BID 02/22/19 05/18/19 Escitalopram Oxalate [Lexapro] 10 mg PO DAILY 05/18/19 05/18/19 Ibuprofen [Motrin] 800 mg PO TID 05/18/19 05/18/19 Lisinopril-Hctz 10-12.5 mg 2 tab PO DAILY 05/18/19 05/18/19 [Zestoretic 10-12.5] Previous Rx's Medication Instructions Recorded SILVER sulfADIAZINE CREAM 1 applic TOPICAL DAILY applic 05/08/19 [Silvadene Cream] Allergies Allergy/AdvReac Type Severity Reaction Status Date / Time Penicillins Allergy Severe Swelling Verified 05/18/19 11:14 prochlorperazine AdvReac Severe Hallucinati Verified 05/18/19 11:14 [From Compazine] ons prochlorperazine edisylate AdvReac Severe Hallucinati Verified 05/18/19 11:14 [From Compazine] ons prochlorperazine maleate AdvReac Severe Hallucinati Verified 05/18/19 11:14 [From Compazine] ons bupropion HCl AdvReac Intermediate Nausea & Verified 05/18/19 11:14 [From Wellbutrin] Vomiting gabapentin [From Neurontin] AdvReac Intermediate Nausea & Verified 05/18/19 11:14 Vomiting amantadine AdvReac Unknown Nausea & Verified 05/18/19 11:14 Vomiting Review of Systems ROS Statement: Those systems with pertinent positive or pertinent negative responses have been documented in the HPI. ROS Other: All systems not noted in ROS Statement are negative. Limitations: ROS unobtainable due to patients medical condition Constitutional: Denies: fever Respiratory: Denies: cough, dyspnea Cardiovascular: Denies: chest pain, syncope Gastrointestinal: Denies: abdominal pain Musculoskeletal: Reports: back pain. Denies: arthralgia Skin: Denies: rash Neurological: Denies: headache Psychiatric: Reports: anxiety Past Medical History Past Medical History: Chest Pain / Angina, Diabetes Mellitus, Eye Disorder, GERD/Reflux, Memory Impairment, Musculoskeletal Disorder, Neurologic Disorder, Osteoarthritis (OA), Renal Disease, Seizure Disorder Additional Past Medical History / Comment(s): gastroperisis MS, active lesions in brainstress, lt kidney stone, cataracts. History of Any Multi-Drug Resistant Organisms: None Reported Past Surgical History: Back Surgery, Heart Catheterization, Tonsillectomy Additional Past Surgical History / Comment(s): c spine, lumbar. spinal cord stimulator. VNS unit left chest. Past Anesthesia/Blood Transfusion Reactions: No Reported Reaction Past Psychological History: Anxiety, Depression Smoking Status: Never smoker Past Alcohol Use History: Occasional Past Drug Use History: Marijuana - Past Family History Mother Family Medical History: COPD, Hypertension Father Family Medical History: Coronary Artery Disease (CAD), Myocardial Infarction ([place]) Additional Family Medical History / Comment(s): cabg General Exam Limitations: altered mental status, physical limitation General appearance: alert, anxious Head exam: Present: atraumatic, normocephalic Eye exam: Present: normal appearance. Absent: scleral icterus, conjunctival injection ENT exam: Present: normal oropharynx Neck exam: Present: normal inspection, full ROM Respiratory exam: Present: normal lung sounds bilaterally. Absent: respiratory distress, wheezes, rales, rhonchi, stridor Cardiovascular Exam: Present: regular rate, normal rhythm, normal heart sounds. Absent: systolic murmur, diastolic murmur, rubs, gallop GI/Abdominal exam: Present: soft. Absent: distended, tenderness, guarding, rebound, mass Extremities exam: Present: normal inspection, normal capillary refill. Absent: pedal edema, calf tenderness Neurological exam: Present: alert. Absent: motor sensory deficit Psychiatric exam: Present: anxious Skin exam: Present: warm, dry, intact, normal color. Absent: rash Course Vital Signs 05/18/19 05/18/19 05/18/19 03:23 06:00 06:48 Temperature 99.2 F 98.0 F Pulse Rate 99 63 93 Pulse Rate [ Left] Respiratory 18 16 18 Rate Blood Pressure 150/96 142/71 135/69 Blood Pressure [Right Arm] O2 Sat by Pulse 97 92 L 100 Oximetry 05/18/19 07:00 Temperature 98.4 F Pulse Rate Pulse Rate [ 85 Left] Respiratory 18 Rate Blood Pressure Blood Pressure 129/63 [Right Arm] O2 Sat by Pulse 98 Oximetry EKG Findings - EKG Results: EKG: interpreted by SAMUEL, sinus rhythm (Rate 97 bpm), normal axis, normal QRS - Blocks, [place], Hypertrophy, ST Abn: Repolarization changes or abnormalities: nonspecific abnormality, ST segment, and/or T wave Medical Decision Making - Medical Decision Making Patient's 53-year-old man here with increased anxiety and also some abdominal pains. He states he has not been able to take much in way of oral intake, including very little fluid intake. The workup does reveal acute kidney injury and patient will be admitted with IV fluids and nephrology consultation. Paged admitting physician Dr. Khan, and have not heard back yet at shift change. - Lab Data Result diagrams: 05/18/19 03:30 05/18/19 03:30 Lab Results 05/18/19 05/18/19 Range/Units 03:30 03:30 WBC 7.3 (3.8-10.6) k/uL RBC 4.01 L (4.30-5.90) m/uL Hgb 12.1 L (13.0-17.5) gm/dL Hct 37.8 L (39.0-53.0) % MCV 94.1 (80.0-100.0) fL MCH 30.2 (25.0-35.0) pg MCHC 32.1 (31.0-37.0) g/dL RDW 13.4 (11.5-15.5) % Plt Count 252 (150-450) k/uL Neutrophils % 69 % Lymphocytes % 12 % Monocytes % 14 % Eosinophils % 2 % Basophils % 1 % Neutrophils # 5.1 (1.3-7.7) k/uL Lymphocytes # 0.9 L (1.0-4.8) k/uL Monocytes # 1.0 (0-1.0) k/uL Eosinophils # 0.1 (0-0.7) k/uL Basophils # 0.0 (0-0.2) k/uL Sodium 142 (137-145) mmol/L Potassium 3.9 (3.5-5.1) mmol/L Chloride 101 (98-107) mmol/L Carbon Dioxide 23 (22-30) mmol/L Anion Gap 18 mmol/L BUN 33 H (9-20) mg/dL Creatinine 3.09 H (0.66-1.25) mg/dL Est GFR (CKD-EPI)AfAm 26 (>60 ml/min/1.73 sqM) Est GFR (CKD-EPI)NonAf 22 (>60 ml/min/1.73 sqM) Glucose 181 H (74-99) mg/dL Calcium 10.1 (8.4-10.2) mg/dL Total Bilirubin 0.5 (0.2-1.3) mg/dL AST 50 (17-59) U/L ALT 27 (4-49) U/L Alkaline Phosphatase 78 (38-126) U/L Total Protein 7.7 (6.3-8.2) g/dL Albumin 4.9 (3.5-5.0) g/dL Amylase 58 (30-110) U/L Lipase 241 (23-300) U/L Disposition Clinical Impression: Acute anxiety, Acute kidney injury Disposition: ADMITTED IP TO THIS HOSP Condition: Fair
[2019-05-18 06:50] VITALS: RESP 18
[2019-05-18] MEDS ORDERED: LORazepam 2 MG/ML INJ IV PRN (06:58)
[2019-05-18] MEDS ORDERED: HALOPERIDOL LACTATE 5 MG/ML 1 ML VIAL IVP ONE (10:58)
[2019-05-18] MEDS ORDERED: HALOPERIDOL LACTATE 5 MG/ML 1 ML VIAL IM ONE (10:58)
[2019-05-18 11:14] LABS: Glucose,Whole Blood 121 mg/dL (75-99)
--- NOTE | 2019-05-18 11:38 | HP ---
HISTORY AND PHYSICAL 53-year-old white male who is admitted to hospital for possible acute kidney injury, admitted to the hospital because he was at [facility] for a possible neurologic event of unclear etiology. He is admitted with altered mental status and physical limitations and possibly anxiety or medication reaction. MEDICATIONS: Include Depakote ER 500 q.i.d., aspirin 81 mg daily, baclofen 10 q.i.d., Fycompa 12 mg daily, extra strength Tylenol, Lipitor 10 mg daily, Rexulti 0.5 at night, Vimpat 200 b.i.d., Wellbutrin XL 150 b.i.d., Metformin 1000 b.i.d. ALLERGIES: COMPAZINE, WELLBUTRIN, NEURONTIN, AMANTADINE. REVIEW OF SYSTEMS: Fourteen-point review of systems negative except for mentioned in HPI. PAST MEDICAL HISTORY: Is angina, diabetes mellitus, GERD, memory impairment, neurologic disorder, renal disease, seizure disorder, musculoskeletal disorder, multiple sclerosis, kidney stones, gastroparesis, active lesions in the brain apparently. PAST SURGICAL HISTORY: Back surgery heart catheterization, tonsillectomy, C-spine, lumbar spine cord stimulator VNS, left chest, anxiety, depression. SOCIAL HISTORY: Never smoked. Occasional marijuana. FAMILY HISTORY: Mother with COPD, hypertension. Father coronary artery disease, myocardial infarction. PHYSICAL EXAMINATION: Temp 98, pulse is 60s to 90s, respiratory 16-20, blood pressure is 137 to 150s over 60s to 90s, O2 90-100 percent. Cardiovascular S1-S2. Lungs are clear. GI soft. Hematology negative Homans. NEUROLOGIC: Cranial nerves appear to be intact. He has some tremor. Psych: He appears very anxious and nervous. EKG is nonspecific ST changes. He has increasing anxiety. Abdominal pains with a normal CAT scan. He is not able to take much in the way of oral intake, very little fluid intake. Possible acute kidney injury with dehydration with nephrology consult. LABS: BUN is 33, creatinine 3.09, hemoglobin 12.1, glucose is 181. Please see further orders. Fluid rehydration. Urology, hematology, Nephrology consult as mentioned above. MMODL / IJN: [id number] /
[2019-05-18 11:59] VITALS: BP 129/63; PULSE 85; TEMP 98.4
--- NOTE | 2019-05-18 12:21 | P.NPCON ---
History of Present Illness - Reason for Consult Consult date: 05/18/19 acute renal failure - Chief Complaint Abnormal labs. - History of Present Illness 53-year-old gentleman coming from psychiatric facility because of altered mental status. He was discharged from this facility to the psychiatric facility. Unable to get any history from him. As per the family denies any nausea vomiting or diarrhea. He does take lisinopril and Motrin on his home medication list. Baseline creatinine 0.8-0.9. When he presented creatinine was 3.09. No recent contrast studies. Review of Systems ROS unobtainable: due to mental status Past Medical History Past Medical History: Chest Pain / Angina, Diabetes Mellitus, Eye Disorder, GERD/Reflux, Memory Impairment, Musculoskeletal Disorder, Neurologic Disorder, Osteoarthritis (OA), Renal Disease, Seizure Disorder Additional Past Medical History / Comment(s): gastroperisis MS, active lesions in brainstress, lt kidney stone, cataracts. History of Any Multi-Drug Resistant Organisms: None Reported Past Surgical History: Back Surgery, Heart Catheterization, Tonsillectomy Additional Past Surgical History / Comment(s): c spine, lumbar. spinal cord stimulator. VNS unit left chest. Past Anesthesia/Blood Transfusion Reactions: No Reported Reaction Past Psychological History: Anxiety, Depression Smoking Status: Never smoker Past Alcohol Use History: Occasional Past Drug Use History: Marijuana - Past Family History Mother Family Medical History: COPD, Hypertension Father Family Medical History: Coronary Artery Disease (CAD), Myocardial Infarction ([place]) Additional Family Medical History / Comment(s): cabg Medications and Allergies Home Medications Medication Instructions Recorded Confirmed Type Divalproex ER [Depakote ER] 500 mg PO QID 03/18/17 05/18/19 History Aspirin 81 mg PO DAILY 11/14/17 05/18/19 History Baclofen 10 mg PO QID 11/14/17 05/18/19 History INSULIN LISPRO (HumaLOG) [humaLOG] See Protocol SQ ACHS 11/14/17 05/18/19 History Acetaminophen [Tylenol Extra 500 mg PO TID PRN 02/22/19 05/18/19 History Strength] Atorvastatin [Lipitor] 10 mg PO W/LUNCH 02/22/19 05/18/19 History Lacosamide [Vimpat] 200 mg PO BID 02/22/19 05/18/19 History metFORMIN HCL 1,000 mg PO BID 02/22/19 05/18/19 History SILVER sulfADIAZINE CREAM 1 applic TOPICAL DAILY applic 05/08/19 05/18/19 Rx [Silvadene Cream] Escitalopram Oxalate [Lexapro] 10 mg PO DAILY 05/18/19 05/18/19 History Ibuprofen [Motrin] 800 mg PO TID 05/18/19 05/18/19 History Lisinopril-Hctz 10-12.5 mg 2 tab PO DAILY 05/18/19 05/18/19 History [Zestoretic 10-12.5] Allergies Allergy/AdvReac Type Severity Reaction Status Date / Time Penicillins Allergy Severe Swelling Verified 05/18/19 11:14 prochlorperazine AdvReac Severe Hallucinati Verified 05/18/19 11:14 [From Compazine] ons prochlorperazine edisylate AdvReac Severe Hallucinati Verified 05/18/19 11:14 [From Compazine] ons prochlorperazine maleate AdvReac Severe Hallucinati Verified 05/18/19 11:14 [From Compazine] ons bupropion HCl AdvReac Intermediate Nausea & Verified 05/18/19 11:14 [From Wellbutrin] Vomiting gabapentin [From Neurontin] AdvReac Intermediate Nausea & Verified 05/18/19 11:14 Vomiting amantadine AdvReac Unknown Nausea & Verified 05/18/19 11:14 Vomiting Physical Exam Vitals: Vital Signs Temp Pulse Pulse Resp BP BP Pulse Ox 05/18/19 07:00 98.4 F 85 18 129/63 98 05/18/19 06:48 98.0 F 93 18 135/69 100 05/18/19 06:00 63 16 142/71 92 L 05/18/19 03:23 99.2 F 99 18 150/96 97 Intake and Output 05/17/19 05/18/19 05/18/19 21:59 06:59 14:59 Other: Weight Very anxious S1-S2 heard Lungs clear Abdomen soft No edema Results - Lab Results Most recent lab results Calcium 10.1 mg/dL (8.4-10.2) 05/18/19 03:30 05/18/19 03:30 05/18/19 03:30 Assessment and Plan Assessment: #1 altered mental status suspect neurological event/change in medications. #2 acute kidney injury suspect prerenal process and concomitant use of lisinopril and ibuprofen. #3 metabolic acidosis with anion gap. #4 hypertension Plan: #1 continue with normal saline at 125 ML's an hour. #2 BladderScan/renal ultrasound for size and obstruction #3 agree with holding lisinopril and Motrin at this time. #4 check urine analysis #5 check ABGs #6 repeat labs in the morning.
[2019-05-18] MEDS ORDERED: ATORVASTATIN 10 MG TAB PO SCH (12:30)
[2019-05-18] MEDS ORDERED: BACLOFEN 10 MG TAB PO SCH (13:00)
[2019-05-18] MEDS ORDERED: DIVALPROEX ER 500 MG TAB.ER.24H PO SCH (13:00)
--- NOTE | 2019-05-18 13:28 | US ---
EXAMINATION TYPE: US kidneys/renal and bladder DATE OF EXAM: 05/18/2019 COMPARISON: Correlation CT same day CLINICAL HISTORY: 53-year-old male ureteral obstruction. FINDINGS: EXAM MEASUREMENTS: Right Kidney: 10.2 x 6.0 x 7.2 cm Left Kidney: 10.6 x 7.0 x 6.2 cm Television Host notes: Technically difficult study due to patient not being able to cooperate. Right Kidney: No hydronephrosis. Left Kidney: shadowing stone measures 1.3 x 1.0 cm in the lower pole. No hydronephrosis. Bladder: limited visualization due to patient motion. IMPRESSION: 1. Technically difficult and limited exam due to patient cooperativity. 2. No hydronephrosis seen on either side. 3. A 1.3 cm nonobstructive left lower lobe pole renal calculus. 4. Unable to assess the bladder in detail.
--- NOTE | 2019-05-18 15:41 | P.CN ---
Psychiatric Consult - . Consult date: 05/18/19 Consult:: The patient was transferred to other facility before been evaluated. Psychiatry consult was requested to rule out EPS adverse reaction. By the time I went to evaluate the patient today, he was transferred to other facility. 05/18/19 15:41
[2019-05-18] MEDS ORDERED: LACOSAMIDE 200 MG PO SCH (21:00)
[2019-05-18] MEDS ORDERED: BREXPIPRAZOLE 0.5 MG PO SCH (21:00)
[2019-05-19] MEDS ORDERED: PERAMPANEL 12 MG PO SCH (09:00)
[2019-05-19] MEDS ORDERED: ASPIRIN 81 MG PO SCH (09:00)
--- NOTE | 2019-05-22 07:54 | DS ---
DISCHARGE SUMMARY A 53-year-old white male came in with acute neurologic change with spasmodic non intentional movements, tic type sensations, memory loss, possible stroke or altered mental status of unclear etiology was needed. Neurology consult was not available at which time the patient was patient was transferred down to Neurology. CONDITION: Stable. PROGNOSIS: Guarded. Ambulate as tolerated. Medicines as above. Follow up with Neurology at [facility] to workup neurologic condition as no neurologist available in this town. Medications as above. Please see further orders. MMODL / IJN: [id number] /
--- NOTE | 2019-05-26 12:01 | DS ---
DISCHARGE SUMMARY DATE OF ADMISSION: 05/18/2019 DATE OF DISCHARGE: 05/18/2019 DISCHARGE MEDICATIONS: 1. Depakote ER 500 mg q.i.d. 2. Accu-Chek protocol a.c. and at bedtime. 3. Aspirin 81 mg daily. 4. Baclofen 10 mg q.i.d. 5. Metformin 1000 b.i.d. 6. Lipitor 10 mg daily. 7. Vimpat 20 mg b.i.d. 8. 500 mg t.i.d. 9. Lisinopril hydrochlorothiazide 12/21.5 two a day. 10.Ibuprofen p.r.n. 800 mg. 11.Lexapro 10 mg daily. CONDITION: Stable. PROGNOSIS: Guarded. Ambulate as tolerated with assistance as patient is very unstable. He has asterixis and unintentional ticks and movements for which he is transferred down to [facility] for neurologic evaluation for possible progressive myelo- dystrophy syndrome or encephalopathy due to progressive myeloid encephalopathy. Patient will be seeing neurologist out of the city and possibly be transferred to [facility] if cannot get better. He was recently sent down to [facility], was taken four of medicines, which made him worse. He came to the hospital with worsening symptoms. We gave him Ativan and then Valium, that calmed him down as well as some Haldol which helped to control him somewhat. The patient was unable to stabilize and due to no neurology on-call in the hospital at this time, he was transferred to see a neurologist. MMFATEMEHL / ROBERTON: [id number] /
== END 2019-05-18 13:57 | disposition other institution (70) ==
LOC: EC 03:17 → 4SSUR 06:21 → UNDODISOB 12:57
PROVIDERS: ADMIT Family Medicine; ATTEND Family Medicine
DX: R27.8 Other lack of coordination (principal); R25.1 Tremor, unspecified; R41.82 Altered mental status, unspecified; F41.9 Anxiety disorder, unspecified; N17.9 Acute kidney failure, unspecified; E87.2 Acidosis; I10 Essential (primary) hypertension; R10.9 Unspecified abdominal pain; E11.9 Type 2 diabetes mellitus without complications; H26.9 Unspecified cataract; K21.9 Gastro-esophageal reflux disease without esophagitis; R41.3 Other amnesia; M19.90 Unspecified osteoarthritis, unspecified site; G40.909 Epilepsy, unspecified, not intractable, without status epilepticus; K31.84 Gastroparesis; G35 Multiple sclerosis; G93.89 Other specified disorders of brain; F31.9 Bipolar disorder, unspecified; M48.56XD Collapsed vertebra, not elsewhere classified, lumbar region, subsequent encounter for fracture with routine healing; N20.0 Calculus of kidney; Z79.899 Other long term (current) drug therapy; Z79.82 Long term (current) use of aspirin; Z79.4 Long term (current) use of insulin; Z88.0 Allergy status to penicillin; Z88.8 Allergy status to other drugs, medicaments and biological substances; Z86.69 Personal history of other diseases of the nervous system and sense organs; Z87.442 Personal history of urinary calculi; Z98.890 Other specified postprocedural states; Z90.89 Acquired absence of other organs; Z96.82 Presence of neurostimulator; Z79.1 Long term (current) use of non-steroidal anti-inflammatories (NSAID); Z79.890 Hormone replacement therapy; Z82.5 Family history of asthma and other chronic lower respiratory diseases; Z82.49 Family history of ischemic heart disease and other diseases of the circulatory system
CPT/HCPCS: 96376 ×2; 96372; 96361; 96374; 99285; 36415; 80053; 82150; 83690; 85025; 76770; 74176; G0378; J2060; J1630; 93005

== ENCOUNTER 2019-06-09 13:44 | Inpatient (IN) | payer BC, MEDICARE ==
[2019-06-09] MEDS ORDERED: ACETAMINOPHEN TAB 500 MG TAB PO PRN (20:54)
[2019-06-09] MEDS ORDERED: metFORMIN 500 MG TAB PO SCH (21:00)
[2019-06-09] MEDS: LACOSAMIDE 150 MG TABLET PO SCH (22:07)
[2019-06-09] MEDS: QUEtiapine 25 MG TAB PO SCH (22:07)
[2019-06-09] MEDS: BACLOFEN 10 MG TAB PO SCH (22:08)
[2019-06-09] MEDS: ESCITALOPRAM 10 MG TAB PO SCH (22:08)
[2019-06-09] MEDS: IBUPROFEN 800 MG TAB PO SCH (22:09)
[2019-06-09 22:11] LABS: Glucose,Whole Blood 93 mg/dL (75-99)
[2019-06-09] MEDS: DIVALPROEX ER 500 MG TAB.ER.24H PO SCH (22:11)
[2019-06-09] MEDS: LACOSAMIDE 50 MG TABLET PO SCH (22:15)
[2019-06-09] MEDS: ALPRAZolam 0.5 MG TAB PO PRN (22:15)
[2019-06-09 23:00] LABS: Basophils % (A) 1 %; Eosinophils # (A) 0.1 k/uL (0-0.7); Eosinophils % (A) 1 %; HCT 34.3 % (39.0-53.0); HGB 11.5 gm/dL (13.0-17.5); Lymphocytes # (A) 1.4 k/uL (1.0-4.8); Lymphocytes % (A) 20 %; MCH 31.1 pg (25.0-35.0); MCHC 33.7 g/dL (31.0-37.0); MCV 92.3 fL (80.0-100.0); Mean Platelet Volume 7.3; Monocytes # (A) 0.5 k/uL (0-1.0); Monocytes % (A) 7 %; Neutrophils # (A) 4.8 k/uL (1.3-7.7); Neutrophils % (A) 69 %; Platelet Count 236 k/uL (150-450); RBC 3.71 m/uL (4.30-5.90); RDW 13.1 % (11.5-15.5); WBC 6.9 k/uL (3.8-10.6)
[2019-06-09 23:08] LABS: Albumin 4.5 g/dL (3.5-5.0); Calcium 9.7 mg/dL (8.4-10.2); Potassium 3.3 mmol/L (3.5-5.1); Total Bilirubin 0.5 mg/dL (0.2-1.3); Total Protein 7.2 g/dL (6.3-8.2)
[2019-06-09] MEDS: SODIUM CHLORIDE 0.9% 1,000 ML IV SCH (23:18)
[2019-06-10] MEDS ORDERED: Potassium Replacement Protocol 1 EACH MISC MISCELLANE PRN (04:54)
[2019-06-10] MEDS: POTASSIUM CHLORIDE ER 20 MEQ TAB.ER PO SCH ×2 (05:03→05:53)
[2019-06-10] MEDS: ALPRAZolam 0.5 MG TAB PO PRN ×3 (05:53→22:06)
[2019-06-10 06:26] LABS: Appearance,Urine Clear (Clear); Bilirubin,Urine Negative (Negative); Blood,Urine Negative (Negative); Color,Urine Yellow; Glucose,Urine (UA) Negative (Negative); Ketones,Urine Trace (Negative); Leukocyte Esterase,Urine Negative (Negative); Nitrite,Urine Negative (Negative); Protein,Urine Trace (Negative); Specific Gravity,Urine 1.019 (1.001-1.035); Urobilinogen,Urine <2.0 mg/dL (<2.0)
[2019-06-10 07:09] LABS: Glucose,Whole Blood 128 mg/dL (75-99)
[2019-06-10] MEDS: INSULIN ASPART (NovoLOG) 100 UNIT/ML VIAL SQ SCH ×4 (07:47→21:33)
[2019-06-10] MEDS: ASPIRIN 81 MG PO SCH (07:54)
[2019-06-10] MEDS: BACLOFEN 10 MG TAB PO SCH ×4 (07:54→21:58)
[2019-06-10] MEDS: LISINOPRIL-HCTZ 20-25 MG 1 EACH TAB PO SCH (07:54)
[2019-06-10] MEDS: LACOSAMIDE 150 MG TABLET PO SCH ×2 (07:54→21:58)
[2019-06-10] MEDS: LACOSAMIDE 50 MG TABLET PO SCH ×2 (07:54→21:58)
[2019-06-10] MEDS: ESCITALOPRAM 10 MG TAB PO SCH (07:55)
[2019-06-10] MEDS: IBUPROFEN 800 MG TAB PO SCH ×3 (07:55→21:59)
[2019-06-10] MEDS: QUEtiapine 25 MG TAB PO SCH (07:55)
[2019-06-10] MEDS: DIVALPROEX ER 500 MG TAB.ER.24H PO SCH ×4 (07:57→21:58)
[2019-06-10 09:45] LABS: Albumin 4.2 g/dL (3.5-5.0); Calcium 9.5 mg/dL (8.4-10.2); Potassium 3.8 mmol/L (3.5-5.1); Total Bilirubin 0.5 mg/dL (0.2-1.3); Total Protein 6.9 g/dL (6.3-8.2)
[2019-06-10] MEDS: SODIUM CHLORIDE 0.9% 1,000 ML IV SCH ×2 (09:57→22:02)
[2019-06-10 11:39] LABS: Glucose,Whole Blood 118 mg/dL (75-99)
[2019-06-10] MEDS ORDERED: MELATONIN 3 MG TABLET PO PRN (12:18)
--- NOTE | 2019-06-10 12:30 | P.CN ---
Psychiatric Consult - . Consult date: 06/10/19 Consult:: 06/10/19 11:29 IDENTIFYING DATA: This patient is a 54-year-old male with multiple medical comorbidities and psychiatric illness who is currently lives with his and is unemployed and has 3 kids. HISTORY OF PRESENT ILLNESS: The patient presented to the hospital as a direct admission by Dr Mejia. Patient was complaining of anxiety, shakes and nervousness. Psychiatry was consulted for bizarre behavior, uncontrolled mood/agitation. Patient was seen at the bedside with his laying in the bed and was agreeable to speak to flex o writer operator alone. Patient appeared to have a constricted and depressed affect and soft tone of voice and endorsed having anxiety and feeling nervous. He also endorsed feeling depressed since April. He denied any stressors or any triggers at that time and states that "nothing changed". Patient was mildly tearful during the interview and states that the Xanax has been helping him on the Seroquel as well mildly. He states that he came to the hospital prior to this and got transferred to [facility] however states that "nothing was found". He continues to have seizures at times and this event having them for 2 years now. Patient endorsed feeling afraid that he won't get to see his daughter's wedding. He states that he's been sleeping poorly and has a or appetite. At this time patient denies any suicidal or homical ideations, intent or plan. Patient denies any auditory, visual hallucinations and denies any paranoia or delusions. Patients admits to using cannabis and states that he has a medical marijuana card. He denies any cigarette use or any alcohol use. PAST PSYCHIATRIC HISTORY: Patient states that he has a history of anxiety and depression and states that he was seeing a therapist in the past however has not gone back due to feeling "judged". He denies any psychiatric hospitalizations in the past. He states that he overdosed on pills about 3 years ago when he was suffering from an opioid dependence issue. Patient is currently on Depakote Lexapro and Seroquel and taking Xanax when necessary. PAST MEDICAL HISTORY: C Alexus, diabetes mellitus, I disorder, GERD, osteoarthritis, seizure disorder, possible history of stroke. ALLERGIES: as per EMR. CHEMICAL DEPENDENCY HISTORY: as per HPI. FAMILY PSYCHIATRIC/SUBSTANCE USE HISTORY: denies SOCIAL HISTORY: He states that he was born and raised in [place] and claims that he completed high school and did some trade school. 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 He is currently and lives in a house with his and has 3 kids. MENTAL STATUS EXAM: General Appearance: Patient appears to be stated age is alert, tearful and constricted. Attempts to cooperate. Patient appears to have fair hygiene and grooming wearing hospital gown with poor eye contact. Behavior: Patient is calmly lying in bed without any agitated behavior. Speech: Patient's speech is fluent and nonpressured. Soft tone Mood/Affect: Patient reports their mood is "depressed and anxious", affect is congruent and constricted. Suicidality/Homicidality: Patient denies having any suicidal or homicidal ideation intent or plan. Perceptions: Patient denies any visual hallucinations and denies any auditory hallucinations Though content/process: There is no evidence of any delusional thought content and thought process is linear and goal-directed. Memory and concentration: AOX3, grossly intact for the purposes of this session. Can spell "WORLD" backwards Judgment and insight: poor IMPRESSIONS: Mood disorder unspecified, rule out bipolar depression versus major depressive disorder Anxiety disorder unspecified. History of opiate dependence Cannabis use disorder, mild PLAN: -At this time patient DOES NOT meet criteria for inpatient psychiatric admission. -Would recommend the following medication changes/additions: Zyprexa 2.5 mg every morning +5 mg daily at bedtime for mood stabilization/depression. We will increase Lexapro to 15 mg daily for mood/anxiety. Melatonin 3 mg when necessary daily at bedtime for sleep. Can continue with Xanax when necessary for anxiety. Discontinued Seroquel at this time. Can continue with Depakote as prescribed. -Will continue to follow along to see if patient may require inpatient psychiatric hospitalization. Continue with medical management and control of seizures. We will await neurology recommendations/consult. -Please contact with any questions. 06/10/19 12:19
[2019-06-10] MEDS: ESCITALOPRAM 5 MG TAB PO STA ×2 (13:58→15:40)
[2019-06-10] MEDS: OLANZapine 2.5 MG TAB PO SCH ×2 (13:58→15:40)
[2019-06-10] MEDS: ATORVASTATIN 10 MG TAB PO SCH (13:58)
[2019-06-10 15:01] VITALS: BMI 27.5
[2019-06-10] MEDS: LORazepam 2 MG/ML INJ IV PRN (15:12)
--- NOTE | 2019-06-10 15:54 | P.CNNES ---
History of Present Illness Consult date: 06/10/19 Reason for Consult: Altered mental status Chief complaint: Progressive personality change in patient with multiple sclerosis and seizu History of Present Illness: This is a new neurology consult requested for further advice and recommendations to evaluate the neurological status in a 54-year-old male diagnosed with multiple sclerosis. He has a diagnosis of relapsed remitting multiple sclerosis diagnosed over 10 years ago as followed by a community neurologist Dr. Dimas. The patient was a poor historian and most of the history was provided by his . The patient's explains that he has been having progressive problems with anxiety and depression beginning in April. She also reports that he's had progressive increase episodes of short-term memory loss which is starting back in December and January. Her primary care physician placed the patient on medication to improve this February shortly thereafter his noted acute personality change around that time. She describes him as being a very laid- back person very easy-going. Within several weeks after beginning the new medication which she calls as arsenio WHITFIELD, he became increasingly agitated and argumentative and hypersexual. This behavior became progressive to the point where he felt that he was "going crazy". On May 05 he was brought to the emergency room and admitted for altered mental status. His reports that in route to the emergency room via EMS he was so agitated that they had physical restraints on them. He was hospitalized for 3 days at the [facility] and then transferred [facility] for further evaluation. He was hospitalized at [facility] for 4 days upon they discontinued the following medications abruptly: Pitressin pain. 5, PERRLA. Trace salty. And amantadine Following his discharge he was felt there was some improvement slowly getting back to to baseline however on May 12 he had another recurrence of the increased agitation argumentative miss hypersexuality that he went back to [facility] he was now hospitalized for 7 days.. During that time he was unable to get the MRI of the brain due to his V Ba stimulator and spine stimulator. There's been difficulty coordinating care with adjusting these devices to allow him to safely go into the MRI scanner. Prior to that discharge from [facility] he was now started on additionally Lexapro 10 mg twice a day and Seroquel 25 mg 3 times a day. In addition they added on Xanax 0.5 mg 3 times daily for anxiety. His current meds on admission include the following: #1. Xanax 0.5 3 times a day 2. Potassium chloride 10 mEq daily 3. Atorvastatin 10" grams daily 4. Seroquel 25 mg 3 times a day 5. Valproic acid 500 mg 4 times daily 6. Lexapro 10 mg twice a day. 7. Lasix 20 mg daily 8. Baclofen 20 mg 3-4 times daily for spasticity 9. Lisinopril 1012 0.53 tablets daily 10. Vimpat 2 mg twice a day 11. Motrin 803 times daily for pain 12. 81 mg enteric-coated aspirin daily His indicates that he was prematurely discharged out of [facility] due to the increasing covert 19 cases. But all the discharge he seemed to be improving but over the last 2 weeks he has been having increased pacing irritability [place] attacks. Past medical history diagnosed with multiple sclerosis in 1999 relapsed remitting. His last relapse was 3 months ago. He was put on a pulsed dosing of Solu-Medrol for several days. His symptom presentation was increase in left-bee ed weakness. This last relapse was in February. The patient also is currently on OQUIVS treatment every 5 months under the care of Dr. Dimas. This is a newer line of medications available for MS patients. The last MRI of the brain was back in July 2018. This did show new lesions in the brain. He has no known lesions in the C-spine thoracic or lumbar sacral spine. Review of systems: A 10 point review of systems was obtained with positive pertinent negatives related to the history of present illness. His reports there is concern that his nutritional status has been declining. He is now up to only drinking 1 or 2 Glucerna day and increasing nausea. This is been going on the past year. There's been estimated at 60 pound weight loss over the past year. Sleep: Patient suffers from chronic insomnia. He has never been evaluated for obstructive sleep apnea. Pain: Patient does take medical marijuana inhales a wax to Pan-like device has been doing this for the past year and a half for pain. He uses medical marijuana 1-2 times a day for pain. Past Medical History Past Medical History: Chest Pain / Angina, Diabetes Mellitus, Eye Disorder, GERD/Reflux, Memory Impairment, Musculoskeletal Disorder, Neurologic Disorder, Osteoarthritis (OA), Renal Disease, Seizure Disorder Additional Past Medical History / Comment(s): gastroperisis MS, active lesions in brainstress, lt kidney stone, cataracts. History of Any Multi-Drug Resistant Organisms: None Reported Past Surgical History: Back Surgery, Heart Catheterization, Tonsillectomy Additional Past Surgical History / Comment(s): c spine, lumbar. spinal cord stimulator. VNS unit left chest. Past Anesthesia/Blood Transfusion Reactions: No Reported Reaction Past Psychological History: Anxiety, Depression Additional Psychological History / Comment(s): , lives in the family home with his . 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 No experience. No tobacco or alcohol use. No animal exposures. Smoking Status: Never smoker Past Alcohol Use History: Occasional Past Drug Use History: Marijuana - Past Family History Mother Family Medical History: COPD, Hypertension Father Family Medical History: Coronary Artery Disease (CAD), Myocardial Infarction (CT) Additional Family Medical History / Comment(s): cabg Medications and Allergies Home Medications Medication Instructions Recorded Confirmed Type Divalproex ER [Depakote ER] 500 mg PO QID 03/18/17 06/09/19 History Aspirin 81 mg PO DAILY 11/14/17 06/09/19 History Baclofen 20 mg PO QID 11/14/17 06/09/19 History Atorvastatin [Lipitor] 10 mg PO W/LUNCH 02/22/19 06/09/19 History Lacosamide [Vimpat] 200 mg PO BID 02/22/19 06/09/19 History metFORMIN HCL 1,000 mg PO BID 02/22/19 06/09/19 History Escitalopram Oxalate [Lexapro] 10 mg PO BID 05/18/19 06/09/19 History Ibuprofen [Motrin] 800 mg PO TID 05/18/19 06/09/19 History Lisinopril-Hctz 10-12.5 mg 2 tab PO DAILY 05/18/19 06/09/19 History [Zestoretic 10-12.5] ALPRAZolam [Xanax] 0.5 mg PO TID 06/09/19 06/09/19 History Furosemide [Lasix] 20 mg PO DAILY PRN 06/09/19 06/09/19 History Insulin Lispro [humaLOG Kwikpen] 0 unit SQ ACHS PRN 06/09/19 06/09/19 History Multivit-Mins/Iron/Folic/Lycop 1 tab PO DAILY 06/09/19 06/09/19 History [Centrum Men's Tablet] Potassium Chloride ER [K-Dur 10] 10 meq PO DAILY PRN 06/09/19 06/09/19 History QUEtiapine [SEROquel] 25 mg PO TID 06/09/19 06/09/19 History Allergies Allergy/AdvReac Type Severity Reaction Status Date / Time Penicillins Allergy Severe Swelling Verified 05/18/19 11:14 prochlorperazine AdvReac Severe Hallucinati Verified 05/18/19 11:14 [From Compazine] ons prochlorperazine edisylate AdvReac Severe Hallucinati Verified 05/18/19 11:14 [From Compazine] ons prochlorperazine maleate AdvReac Severe Hallucinati Verified 05/18/19 11:14 [From Compazine] ons bupropion HCl AdvReac Intermediate Nausea & Verified 05/18/19 11:14 [From Wellbutrin] Vomiting gabapentin [From Neurontin] AdvReac Intermediate Nausea & Verified 05/18/19 11:14 Vomiting amantadine AdvReac Unknown Nausea & Verified 05/18/19 11:14 Vomiting Physical Examination - Vital Signs Vital Signs: Vital Signs Temp Pulse Pulse Resp BP BP Pulse Ox 06/10/19 14:56 98.4 F 64 16 99/57 96 06/10/19 05:00 98.0 F 69 18 116/73 97 06/09/19 19:25 97.2 F L 67 18 108/68 97 Intake and Output 06/10/19 06/10/19 06/10/19 06:59 14:59 22:59 Intake Total 0 Balance 0 Intake: Oral 0 Other: Voiding Method Toilet # Voids 1 Weight 92.079 kg Neurological exam Mental status: Awake alert anxious. Poor historian. Affect sad. Speech fluent. Pupils: 2 mm equally reactive to light and accommodation. Cranial nerve examination: Cranial nerves III through XII are intact. Visual field testing: Intact to finger counting in all 4 quadrants. Motor examination normal muscle bulk and tone on the right upper and lower extremity. There is mild increase in tone noted in the left upper extremity. Strength is 5 out of 5 throughout the right upper and lower extremity. There is some mild proximal weakness noted in the biceps and deltoid on the left. Wrist flexion and extension appeared 5 out of 5 bilaterally. Left lower extremity strength testing is 5 out of 5. No fasciculations or tremor noted. Coordination testing: A bilateral tremor is noted when the patient attempts finger to nose testing. Tcja-do-laaj maneuvers intact. Rapid sequential finger tapping intact. Deep tendon reflexes: Hyperreflexic biceps triceps brachioradialis. Patellar reflexes +3 without crossed adduction. Ankle jerks intact bilaterally. No ankle clonus elicited. Sensory testing. No decrease to sensation with light touch or pinprick in the upper and lower extremities. Gait examination. Patient is able to transfer from sitting to standing without assistance. His gait is slightly wide-based but not ataxic. Results - Laboratory Findings CBC and BMP: 06/09/19 22:28 06/10/19 09:12 Abnormal Lab Findings: Abnormal Labs 06/09/19 06/09/19 06/10/19 22:28 22:28 06:00 RBC 3.71 L Hgb 11.5 L Hct 34.3 L Potassium 3.3 L BUN 35 H Creatinine 1.50 H Glucose POC Glucose (mg/dL) Ammonia Urine Protein Trace H Urine Ketones Trace H 06/10/19 06/10/19 06/10/19 07:07 09:12 09:12 RBC Hgb Hct Potassium BUN 36 H Creatinine 1.43 H Glucose 117 H POC Glucose (mg/dL) 128 H Ammonia 30 H Urine Protein Urine Ketones 06/10/19 11:37 RBC Hgb Hct Potassium BUN Creatinine Glucose POC Glucose (mg/dL) 118 H Ammonia Urine Protein Urine Ketones - Diagnostic Findings EKG: report reviewed Chest x-ray: report reviewed Abdominal x-ray: report reviewed CT scan - abdomen: report reviewed (eeg pending) Assessment and Plan Assessment: Assessment 54-year-old male with relapsed remitting multiple sclerosis admitted for further evaluation for ongoing intermittent episodes of altered mental status involving agitation. This patient is on polypharmacy for multiple condit ions. The risk for behavioral side effects with polypharmacy is high. I have discussed this case in depth with the psychiatrist on the case. I agree with the recommendation to proceed slowly and cautiously with changing medications. I agree with the psychiatrist evaluation of discontinuing the S eroquel and try and Zyprexa to help with regulating his mood and increasing the Lexapro slightly. This patient has multiple factors that could lead to personality changes. He was on 4 medications that have high behavioral side effects. He is also on seizure medication valproic acid which can lead to behavioral side effects particularly leading to hyperammonemia. I note that on his neurologic exam today he's got a tremor which is usually related to valproic acid causing zinc deficiency. 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 This patient also has outstanding cerebral spinal fluid studies that are imperative to obtain as he was being worked up for progressive multifocal leukoencephalopathy (PML). However on his exam myoclonic jerks which is generally seen with PML was not found today. This patient also has very poor nutritional status and has had a 60 pound weight loss due to gastroparesis. Vitamin deficiencies can also contribute to her behavioral deterioration. Summary 1. Chronic ongoing episodes of acute altered mental status involving agitation hypersexuality and restlessness/ akathesia. 2. Multiple sclerosis relapse remitting currently on OQUIVS treatment every 5 months. 3. 2 prior hospitalizations over the last 60 days for this condition. 4. History of epilepsy diagnosed during multiple sclerosis diagnosis. 5. Poor nutritional status. 6. Abnormal labs indicating hyperglycemia, chronically an abnormal kidney funct ion. 7. Childhood history of abandonment and anxiety. Possible increase risk for claustrophobia and depression. 8. Chronic medical marijuana usage. Plan: 1. EEG today to establish baseline and rule out possible post ictal agitation. 2. Trough valproic acid level in the morning. Liver function studies today along with anemia workup. Hemoglobin A1c. Renal panel. Ammonia level. Thyroid studies. 3. Lacosamide level ( send OUt) 4. Nutrition consult. 5. Neurometabolic workup: Lipid panel. Copper level. B12 and folate level. Zinc level. B6 level. Heavy metal screen. Urine drug screen. 6, Physical therapy evaluation as inpatient. Recommendations for outpatient would be appreciated. 7. Neuro checks every 4 hours while awake per nursing protocol. 8. Contact Dr. Sands community neurologist to coordinate care with setting up time to turn off VNS and spine stimulator in order for him to undergo a follow- up MRI of the brain as well as follow-up on outstanding cerebral spinal fluid analysis. Thank you for this consult. This patient's prognosis remains guarded. Further recommendations will be made as this case evolves.
[2019-06-10 17:21] LABS: Glucose,Whole Blood 104 mg/dL (75-99)
--- NOTE | 2019-06-10 18:58 | EEG ---
ELECTROENCEPHALOGRAM REPORT DATE OF SERVICE: 06/10/2019. HISTORY: This is an inpatient EEG performed on a 54-year-old gentleman with a diagnosis of relapsing remitting multiple sclerosis and seizure disorder. The patient was admitted for increasing episodes of altered mental status involving agitation, irritability and restlessness. This patient was diagnosed with seizures during the same period of his diagnosis of MS approximately 10 years ago. He is currently on valproic acid and lacosamide. TECHNICAL REPORT: This is an inpatient EEG performed on the [employer] EEG monitor with electrode placed according to the international 10/20 system and a single EKG channel. Simultaneous video EEG monitoring was performed. This EEG was reviewed in the longitudinal bipolar, common average referential and transverse montages. Photic stimulation was performed. Hyperventilation was not performed due to the patient's underlying medical condition. The recording begins with the patient awake. A moderate to high-amplitude recording is noted with a well sustained, well modulated 9 to 10 Hz posterior-dominant rhythm that appears symmetric. Generalized beta activity is superimposed over the background and is quite prominent in the anterior and central head regions. Intermittent muscle and movement artifacts contaminate the tracing. Photic stimulation was performed at various flash frequencies and failed to elicit a consistent driving response. Following photic stimulation, the background becomes attenuated with an increase in beta activity anteriorly and centrally. Patient appears to be transitioning briefly into stage I sleep/drowsiness. This is associated with slow rolling eye movements and a slowing of the background to 7 to 8 Hz potentials. Deeper stages of sleep were not achieved. IMPRESSION: This is a normal awake, brief drowsy EEG study. There was a significant amount of beta activity noted superimposed which is most likely secondary to the alprazolam medication effect. Otherwise, no epileptiform activity, clinical or electrographic seizures were observed. No hemispheric or focal slowing was noted. No abnormalities were noted during photic stimulation or in the EKG. A normal awake drowsy EEG does not preclude an underlying seizure tendency; thus further clinical correlation is needed. If clinically indicated, a more prolonged overnight study such as an ambulatory EEG and/or serial EEGs is recommended. MMFATEMEHL / IJCruz: [id number] /
[2019-06-10 20:06] LABS: Glucose,Whole Blood 108 mg/dL (75-99)
[2019-06-10] MEDS: OLANZapine 5 MG TAB PO SCH (22:01)
--- NOTE | 2019-06-10 22:16 | HP ---
HISTORY AND PHYSICAL This patient is a 54-year-old white male with a history of MS, seizure disorder, admitted with relapsing remitting multiple sclerosis over the last 10 years. He had severe trouble with anxiety and depression in April, increased episodes, memory loss and inconsolable behavior. He was admitted for possible MS exacerbation and possible psychiatric referral. He was seen by multiple psychiatrists and neurologists in the past few months, going to [facility] 2 or 3 times as well as hospital. He has some problem with his spine stimulator, getting MRIs because of this. He was also given Seroquel and Lexapro recently by [facility]. He still is inconsolable at home and has difficulty with any kind of anxiety control. HOME MEDICINES: Home medicines include Xanax 0.5 t.i.d., potassium chloride 10 mEq daily, atorvastatin 10 daily, Seroquel 25 t.i.d., valproic acid 500 q.i.d., Lexapro 10 b.i.d., Lasix 20 daily, baclofen 20 t.i.d., lisinopril 10/12.5 daily, Vimpat 2 mg twice a day, Motrin 800 t.i.d., aspirin 81. REVIEW OF SYSTEMS: Fourteen-point review of systems as mentioned above. Otherwise negative. PAST MEDICAL HISTORY: Chest pain, angina, diabetes mellitus, eye disorder, GERD, memory impairment, musculoskeletal disorder, MS, osteoarthritis, possibly a progressive brain injury, renal disease, seizure disorder, chronic insomnia, medical marijuana, gastroparesis, diabetes mellitus, type 2, kidney disorder, cataracts, heart catheterization, back surgery, tonsillectomy, surgery for the spinal cord stimulator, C-spine and lumbar spine, VNS unit left chest, history of anxiety, depression. He is , [place]. Lives with his disabled. No alcohol or tobacco. No travel. No animal exposures. No smoking except for marijuana. FAMILY HISTORY: Mother with COPD, hypertension. Father with coronary artery disease, myocardial infarction. HOME MEDICATIONS: As mentioned above. ALLERGIES: PENICILLIN, COMPAZINE, WELLBUTRIN, NEURONTIN, AMANTADINE. PHYSICAL EXAMINATION: Temperature 97 to 98, pulse 64 to 69, respiratory rate 16 to 18, blood pressure 108 to 116 over 68 to 73, oxygen saturation 96% to 975. NEUROLOGIC: He is very anxious. Poor historian. Flat affect. Strength 5/5 x4 extremities. He has some hyper reflexes in his extremities. LABS: BUN 35, creatinine 1.5. Glucose mid 100s. Hemoglobin 11.5. ASSESSMENT: 1. Altered mental status. 2. Agitation. 3. Dys movements. 4. Possible flare of multiple sclerosis. Psychiatry and Neurology have seen him. Eddie Beltran started Seroquel. Psychiatrist may start discontinuing the Seroquel and trying Zyprexa, increasing Lexapro. He has got a tremor possibly related to valproic acid causing zinc deficiency, possible anxiety and depression making everything worse for unclear reasons; claustrophobic, generalized anxiety disorder, depression, multifocal leukoencephalopathy PML. Progressive multifocal leukoencephalopathy, although he does not quite fit into this. He had a 60- pound weight loss due to gastroparesis. His says he does not eat. 1. History of epilepsy, multiple sclerosis. . Is why she is dizzy, does the need to use history of epilepsy MS. 2. Hypersexuality. 3. Restlessness, . 4. Poor nutritional status. 5. Abnormal renal function. 6. Hyperglycemia. 7. History of anxiety. Please see workup. Wait for Neurology and Psychiatry to intervene. MMODL / IJN: [id number] /
[2019-06-10 22:59] LABS: Amphetamine Screen,Urine Not Detected (NotDetected); Barbiturate Screen,Urine Not Detected (NotDetected); Benzodiazepines Screen,Urine Detected (NotDetected); Cocaine Screen,Urine Not Detected (NotDetected); Methadone Screen, Urine Not Detected (NotDetected); Opiate Screen,Urine Not Detected (NotDetected); Oxycodone Screen, Urine Not Detected (NotDetected); Phencyclidine Screen,Urine Not Detected (NotDetected); Tricyclic Antidepressant,Urine Detected (NotDetected); Urn Cannabinoid Scrn Detected (NotDetected)
[2019-06-11 06:57] LABS: Glucose,Whole Blood 102 mg/dL (75-99)
[2019-06-11] MEDS: INSULIN ASPART (NovoLOG) 100 UNIT/ML VIAL SQ SCH ×4 (07:12→21:36)
[2019-06-11] MEDS: OLANZapine 2.5 MG TAB PO SCH ×2 (08:10→11:53)
[2019-06-11] MEDS: ESCITALOPRAM 20 MG TAB PO SCH ×2 (08:11→11:53)
[2019-06-11 08:12] LABS: T4, Free (Free Thyroxine) 1.06 ng/dL (0.78-2.19)
[2019-06-11] MEDS: ASPIRIN 81 MG PO SCH (08:16)
[2019-06-11] MEDS: BACLOFEN 10 MG TAB PO SCH ×4 (08:17→21:09)
[2019-06-11] MEDS: IBUPROFEN 800 MG TAB PO SCH ×3 (08:17→21:08)
[2019-06-11] MEDS: DIVALPROEX ER 500 MG TAB.ER.24H PO SCH ×4 (08:17→21:08)
[2019-06-11] MEDS: LACOSAMIDE 150 MG TABLET PO SCH ×2 (08:22→21:09)
[2019-06-11] MEDS: LACOSAMIDE 50 MG TABLET PO SCH ×2 (08:22→21:09)
[2019-06-11] MEDS: ALPRAZolam 0.5 MG TAB PO PRN ×3 (08:22→21:09)
[2019-06-11] MEDS ORDERED: ESCITALOPRAM 5 MG TAB PO SCH (09:00)
[2019-06-11] MEDS: LISINOPRIL-HCTZ 20-25 MG 1 EACH TAB PO SCH ×2 (09:54→16:06)
[2019-06-11 10:24] LABS: Valproic Acid (Depakene) 62.1 ug/mL
[2019-06-11 11:13] LABS: % Iron Saturation 12.47 (15.00-50.00)
[2019-06-11 11:24] LABS: Ferritin 66.2 ng/mL (22.0-322.0)
[2019-06-11 11:36] LABS: Glucose,Whole Blood 145 mg/dL (75-99)
[2019-06-11 11:52] LABS: Folate, Serum 12.4 ng/mL
[2019-06-11] MEDS: ATORVASTATIN 10 MG TAB PO SCH (12:42)
[2019-06-11] MEDS: SODIUM CHLORIDE 0.9% 1,000 ML IV SCH ×2 (12:44→23:38)
--- NOTE | 2019-06-11 13:24 | P.PN ---
Progress Note - Text Progress Note Date: 06/11/19 Psychiatric progress note: Interval History: Patient was seen today for follow-up due to agitation and uncontrolled emotions/lability. Patient was seen alone at the bedside by creative services writer as was taking a shower. Patient was directable and agreeable to speak with creative services writer today. He states that he had a seizure earlier this morning however did not have any tongue biting or any post ictal confusion or loss of continence however did state that he was "shaking a lot". He states that he did not sleep well last night and refused his medications. He continues to state that he is "scared" about what is happening to him and complained of anxiety. He states that his mood is "depressed". She also stated that his "nerves are shot". Patient appeared to be sensitive and emotional at times when speaking about his condition. He states that she did not know if it was safe to take his medications and declined them. At this time patient denies any suicidal or homical ideations, intent or plan. Patient denies any auditory, visual hallucinations and denies any paranoia or delusions. Mental Status Exam: General Appearance: Patient appears to be stated age is alert, tearful at times, emotionally labile. Attempts to cooperate. Patient appears to have fair hygiene and grooming wearing hospital gown with improved eye contact. Behavior: Patient is calmly lying in bed without any agitated behavior. Speech: Patient's speech is fluent and nonpressured. Soft tone Mood/Affect: Patient reports their mood is "depressed and anxious", affect is congruent Suicidality/Homicidality: Patient denies having any suicidal or homicidal ideation intent or plan. Perceptions: Patient denies any visual hallucinations and denies any auditory hallucinations Though content/process: There is no evidence of any delusional thought content and thought process is linear and goal-directed. Preoccupied with his condition. Memory and concentration: AOX3, grossly intact for the purposes of this session. Can spell "WORLD" backwards Judgment and insight: poor Assessment Mood disorder unspecified, rule out bipolar depression versus major depressive disorder Anxiety disorder unspecified. History of opiate dependence Cannabis use disorder, mild Plan: -At this time patient DOES NOT meet criteria for inpatient psychiatric admission. -Would recommend the following medication changes/additions: Continue with Zyprexa 2.5 mg every morning +5 mg daily at bedtime for mood stabiliza tion/depression, patient was encouraged to take his medications today. We will continue with Lexapro to 20 mg daily for mood/anxiety. Melatonin 3 mg when necessary daily at bedtime for sleep. Can continue with Xanax when necessary for anxiety, will attempt to titrate patient off this medication. Can continue with Depakote as prescribed. -Patient's Depakote level was 62, awaiting brain MRI, B12 level, zinc, heavy metal screen and UDS. Patient's ammonia was 30 -Awaiting EEG. -Will continue to follow along to see if patient may require inpatient psychiatric hospitalization. Continue with medical management and control of seizures. Appreciate neurology recommendations and will continue to coordinate with neurology. -Please contact with any questions.
[2019-06-11] MEDS ORDERED: ONDANSETRON 4 MG/2 ML VIAL IVP PRN (13:59)
[2019-06-11 15:16] LABS: Hemoglobin A1C 5.9 % (4.0-6.0)
--- NOTE | 2019-06-11 16:11 | P.PN ---
Subjective Progress Note Date: 06/11/19 This is a 54-year-old gentleman admitted with altered mental status, possible MS exacerbation and multiple other medical issues. Evaluated by both psychiatry and neurology with recommendations noted and appreciated. Medications adjusted with Seroquel discontinued, Zyprexa initiated, Lexapro increased. Patient having multiple short episodes of arms tensing with fingers curling up without blank stare which states is what he commonly does with MS exacerbation and expresses concern that patient is not receiving IV steroid tx. They were unable to have MRI of brain completed, at [facility]-rescheduled. EGD reported normal with significant amount of beta activity suspect induced by Xanax. Amm onia 30 yesterday, 22 on 05/05. Currently patient calm without any current seizure activity. Denies any lightheadedness, dizziness or focal deficits. Depakote level 62. Denies any chest pain, palpitations or shortness of breath. Objective - Vital Signs Vital signs: Vital Signs Temp 97.9 F 06/11/19 12:36 Pulse 63 06/11/19 12:36 Resp 16 06/11/19 12:36 BP 146/77 06/11/19 12:36 Pulse Ox 99 06/11/19 12:36 Intake & Output 06/10/19 06/11/19 06/11/19 18:59 06:59 18:59 Intake Total 200 300 Output Total 400 Balance -200 300 Weight 92.079 kg 92.079 kg Intake: Oral 200 300 Output: Urine 400 Other: # Voids 1 - Exam PHYSICAL EXAM: VITAL SIGNS: [As above] GENERAL: Sitting up in bed, calm, participating in conversation HEENT: Conjunctivae normal. eyes normal. Oral mucosa moist NECK: No JVD. No thyroid enlargement. No LNs CARDIOVASCULAR: S1, S2 regular.. No murmur RESPIRATION: Breath sounds diminished in the bases. No rhonchi or crackles. No bronchial breathing. ABDOMEN: Soft, nontender . No guarding. no masses palpable. No ascites, No hepatosplenomegaly.Bowel sounds heard. LEGS: No edema. no swelling PSYCHIATRY: Alert and oriented X 2, calm, non-agitated NERVOUS SYSTEM: Cranial N 2-12 grossly normal. Diffuse weakness, No gross focal deficits. Skin: No rash, warm and dry - Labs CBC & Chem 7: 06/09/19 22:28 06/10/19 09:12 Labs: Abnormal Lab Results - Last 24 Hours (Table) 06/10/19 06/10/19 06/10/19 Range/Units 17:10 20:01 22:30 POC Glucose (mg/dL) 104 H 108 H (75-99) mg/dL Iron (65-175) ug/dL % Saturation (15.00-50.00) HDL Cholesterol (40-60) mg/dL Total T3 (60.0-180.0) ng/dL U Tricyclic Antidepress Detected H (NotDetected) U Benzodiazepines Scrn Detected H (NotDetected) U Marijuana (THC) Screen Detected H (NotDetected) 06/11/19 06/11/19 06/11/19 Range/Units 06:50 06:58 06:58 POC Glucose (mg/dL) 102 H (75-99) mg/dL Iron 46 L (65-175) ug/dL % Saturation 12.47 L (15.00-50.00) HDL Cholesterol 28 L (40-60) mg/dL Total T3 59.0 L (60.0-180.0) ng/dL U Tricyclic Antidepress (NotDetected) U Benzodiazepines Scrn (NotDetected) U Marijuana (THC) Screen (NotDetected) 06/11/19 Range/Units 11:34 POC Glucose (mg/dL) 145 H (75-99) mg/dL Iron (65-175) ug/dL % Saturation (15.00-50.00) HDL Cholesterol (40-60) mg/dL Total T3 (60.0-180.0) ng/dL U Tricyclic Antidepress (NotDetected) U Benzodiazepines Scrn (NotDetected) U Marijuana (THC) Screen (NotDetected) Assessment and Plan Assessment: Acute altered mental status accompanied by agitation, acute metabolic encephalopathy, possible MS exacerbation History of Multiple sclerosis, epilepsy Depression Anxiety Mild neurocognitive disorder, prior Mini mental status exam score 24/30 Gastroparesis with 60 pound weight loss Hyperammonemia Dehydration secondary to poor oral intake Acute renal failure, prerenal secondary to the above, improved with IV fluid hydration. Hypersexuality Cannabis use Plan: Continue on current medication regime ,monitoring and symptomatic treatment. CMP, ammonia level elevated at 30. High-dose IV steroids initiated as discussed between PCP, Dr. Bruce Khan and pt's spouse. Close monitoring of Accu-Cheks. Follow closely with neurology and psychiatry. Maintain seizure precautions. The impression and plan of care has been dictated as directed. : I performed a history and examination of this patient, discussed the same with the dictator. I agree with the dictator's note ,documented as a scribe. Any additional findings or plans will be noted.
[2019-06-11 16:44] LABS: Glucose,Whole Blood 103 mg/dL (75-99)
[2019-06-11] MEDS: LACTULOSE 20 GM/30 ML CUP PO SCH (21:08)
[2019-06-11] MEDS: OLANZapine 5 MG TAB PO SCH (21:08)
--- NOTE | 2019-06-11 21:24 | P.PN ---
Subjective Progress Note Date: 06/11/19 Altered mental status. Subjective: Patient was reported by nurse this morning to have possibly a nonepileptic seizure. Patient still continues to have high anxiety but on tonight's visit he seems slightly more improved more attentive. I've been able to make contact with Dr. Dimas and the patient's nurse practitioner. We now have all the information required to proceed with MRI imaging regarding the VNS and spine stimulator. Objective - Vital Signs Vital signs: Vital Signs Temp 97.9 F 06/11/19 12:36 Pulse 63 06/11/19 12:36 Resp 16 06/11/19 20:00 BP 146/77 06/11/19 12:36 Pulse Ox 99 06/11/19 12:36 Intake & Output 06/11/19 06/11/19 06/12/19 06:59 18:59 06:59 Intake Total 300 540 Balance 300 540 Weight 92.079 kg Intake: Oral 300 540 Other: Voiding Method Toilet # Voids 1 2 - Exam Neurological exam Mental status: Awake alert appears calm. Pupils: 2 mm equally reactive to light. Cranial nerves: Extraocular movements are full there's no nystagmus noted on vertical horizontal gaze. Face appears symmetric. Palate elevates symmetrically. Tongue appears midline without fasciculations deviation. Motor examination: Moves all 4 extremities equally. Ongoing restlessness is noted in his right leg throughout the history and exam today. Strength is 5 out of 5 over the right upper and lower extremity. He's got proximal weakness in the left upper deltoid biceps and left hip flexor. Next para sensory examination grossly unchanged intact light touch. Deep tendon reflexes and gait examination deferred. - Labs CBC & Chem 7: 06/09/19 22:28 06/10/19 09:12 Labs: Abnormal Lab Results - Last 24 Hours (Table) 06/10/19 06/11/19 06/11/19 Range/Units 22:30 06:50 06:58 POC Glucose (mg/dL) 102 H (75-99) mg/dL Iron 46 L (65-175) ug/dL % Saturation 12.47 L (15.00-50.00) HDL Cholesterol 28 L (40-60) mg/dL Total T3 (60.0-180.0) ng/dL U Tricyclic Antidepress Detected H (NotDetected) U Benzodiazepines Scrn Detected H (NotDetected) U Marijuana (THC) Screen Detected H (NotDetected) 06/11/19 06/11/19 06/11/19 Range/Units 06:58 11:34 16:43 POC Glucose (mg/dL) 145 H 103 H (75-99) mg/dL Iron (65-175) ug/dL % Saturation (15.00-50.00) HDL Cholesterol (40-60) mg/dL Total T3 59.0 L (60.0-180.0) ng/dL U Tricyclic Antidepress (NotDetected) U Benzodiazepines Scrn (NotDetected) U Marijuana (THC) Screen (NotDetected) Assessment and Plan Assessment: Assessment and recommendations: Patient's labs were reviewed this evening and there is evidence of an anemia that requires further workup. Patient also has mildly elevated ammonia which is most likely secondary to the Depakote. The patient should be started on a low dose of lactulose to maintain normal ammonia levels. The patient also is on Depakote for which can lead to carnitine deficiency. I discussed with his starting him on carnitine supplement sugar-free this can be provided with an outpatient prescription. 1. Multiple sclerosis relapse remitting 2. Generalized anxiety disorder for/altered mental status/depression. 3. Akathisia 4. Restless leg syndrome secondary to anemia 5. Anemia of undetermined etiology. 6. Poor nutritional status secondary to malabsorption. 7. Seizure disorder: Epileptic and nonepileptic seizures 8. Development of hyperammonemia while on valproic acid. 9. Abnormal total T3 level. 10. Increased risk for carnitine deficiency secondary to chronic exposure to valproic acid. Recommendations 1. Start lactulose 30 ml by mouth twice a day. 2. Follow up with metabolic workup. 3. Discuss with hospitalist further workup for anemia, chronic blood loss. Patient is an increased risk for malabsorption. The anemia is most likely the secondary cause for his restless leg syndrome. 4. Coordinate with hospital radiology to potentially do MRI either here with the directions for monitoring and managing the VNS and stimulator. If this is not possible and they do not have the proper coil we will need to see if we could arrange for this patient to have this done at [facility] where he has had prior studies done. 5. Solu-Medrol dosing: Would recommend that the patient be placed on pulse dose therapy with Solu-Medrol. 750 mg every morning over 3 days. Close monitoring of sugar will be recommended along with appropriate laboratory monitoring. 6. Physical therapy assessment. 7. Continue with recommendations from psychiatry for mood management. 8. Provide his a prescription for carnitine sugar-free 10 ml twice daily while on valproic acid. This patient's prognosis remains guarded. Further recommendations will be made as this case evolves. (1) Acute anxiety Current Visit: No Status: Acute Code(s): F41.9 - ANXIETY DISORDER, UNSPECIFIED SNOMED Code(s): 87831673 (2) Altered mental status Current Visit: No Status: Acute Code(s): R41.82 - ALTERED MENTAL STATUS, UNSPECIFIED SNOMED Code(s): 602525499 (3) Multiple sclerosis Current Visit: No Status: Acute Code(s): G35 - MULTIPLE SCLEROSIS SNOMED Code(s): 74746439 (4) Muscle spasms of both lower extremities Current Visit: No Status: Acute Code(s): M62.838 - OTHER MUSCLE SPASM SNOMED Code(s): 849177962 (5) Seizure disorder Current Visit: No Status: Acute Code(s): G40.909 - EPILEPSY, UNSP, NOT INTRACTABLE, WITHOUT STATUS EPILEPTICUS SNOMED Code(s): 262813921
[2019-06-11 21:25] LABS: Glucose,Whole Blood 178 mg/dL (75-99)
[2019-06-12 01:17] LABS: Glucose,Whole Blood 196 mg/dL (75-99)
[2019-06-12] MEDS: ALPRAZolam 0.5 MG TAB PO PRN ×3 (02:37→19:10)
[2019-06-12] MEDS: LORazepam 2 MG/ML INJ IV PRN ×3 (06:45→23:57)
[2019-06-12 07:31] LABS: Basophils % (A) 0 %; Eosinophils % (A) 0 %; HCT 33.5 % (39.0-53.0); HGB 10.9 gm/dL (13.0-17.5); Lymphocytes # (A) 0.2 k/uL (1.0-4.8); Lymphocytes % (A) 4 %; MCH 30.7 pg (25.0-35.0); MCHC 32.4 g/dL (31.0-37.0); MCV 94.6 fL (80.0-100.0); Mean Platelet Volume 7.3; Monocytes # (A) 0.1 k/uL (0-1.0); Monocytes % (A) 2 %; Neutrophils # (A) 4.7 k/uL (1.3-7.7); Neutrophils % (A) 93 %; Platelet Count 237 k/uL (150-450); RBC 3.54 m/uL (4.30-5.90); RDW 13.2 % (11.5-15.5); WBC 5.1 k/uL (3.8-10.6)
[2019-06-12 07:39] LABS: Glucose,Whole Blood 175 mg/dL (75-99)
[2019-06-12 07:49] LABS: Albumin 3.9 g/dL (3.5-5.0); Calcium 9.3 mg/dL (8.4-10.2); Potassium 3.7 mmol/L (3.5-5.1); Total Bilirubin 0.3 mg/dL (0.2-1.3); Total Protein 6.6 g/dL (6.3-8.2)
[2019-06-12] MEDS: INSULIN ASPART (NovoLOG) 100 UNIT/ML VIAL SQ SCH ×4 (07:57→21:02)
[2019-06-12] MEDS: SODIUM CHLORIDE 0.9% 1,000 ML IV SCH ×2 (07:57→17:57)
[2019-06-12] MEDS: IBUPROFEN 800 MG TAB PO SCH ×3 (07:57→20:21)
[2019-06-12] MEDS: LACTULOSE 20 GM/30 ML CUP PO SCH ×2 (07:57→20:22)
[2019-06-12] MEDS: BACLOFEN 10 MG TAB PO SCH ×4 (07:57→20:22)
[2019-06-12] MEDS: LISINOPRIL-HCTZ 20-25 MG 1 EACH TAB PO SCH (07:58)
[2019-06-12] MEDS: OLANZapine 2.5 MG TAB PO SCH (07:58)
[2019-06-12] MEDS: ASPIRIN 81 MG PO SCH (07:58)
[2019-06-12] MEDS: ESCITALOPRAM 20 MG TAB PO SCH (07:58)
[2019-06-12] MEDS: DIVALPROEX ER 500 MG TAB.ER.24H PO SCH ×4 (07:59→20:21)
[2019-06-12] MEDS ORDERED: LORazepam 2 MG/ML INJ IV STA (08:09)
[2019-06-12] MEDS: LACOSAMIDE 50 MG TABLET PO SCH ×2 (08:20→20:21)
[2019-06-12] MEDS: LACOSAMIDE 150 MG TABLET PO SCH ×2 (08:20→20:21)
[2019-06-12 10:37] LABS: Valproic Acid (Depakene) 84.7 ug/mL
--- NOTE | 2019-06-12 12:03 | P.PN ---
Progress Note - Text Progress Note Date: 06/12/19 Psychiatric progress note: Interval History: Patient was seen today for follow-up due to agitation and uncontrolled emotions/lability. Patient was seen sleeping on his bed and his was beside him in the chair. stated that patient just now fell asleep as he had a "very bad night". stated that patient had a difficult time initiating sleep and was anxious and attempting to crawl out of bed. She also states the patient has been tearful. stated that patient had a seizure this morning and required Ativan. She stated that patient has been taking his medications. Unable to assess auditory or visual hallucinations at this time or suicidal homicidal ideations intent or plan as patient is asleep. Mental Status Exam: General Appearance: Patient appears to be sleeping in his bed soundly with his at the bedside. Patient appears to have fair hygiene and grooming wearing hospital gown with improved eye contact. Behavior: Sleeping soundly. Speech: Unable to assess Mood/Affect: Unable to assess Suicidality/Homicidality: Unable to assess Perceptions: Unable to assess Though content/process: Unable to assess. Memory and concentration: Unable to assess Judgment and insight: Unable to assess Assessment Mood disorder unspecified, rule out bipolar depression versus major depressive disorder Anxiety disorder unspecified. History of opiate dependence Cannabis use disorder, mild Plan: -At this time patient DOES NOT meet criteria for inpatient psychiatric admission. -Would recommend the following medication changes/additions: Increased Zyprexa 2.5 mg every morning + 2.5mg prn at 1400 + 10 mg daily at bedtime for mood stabilization/depression. We will continue with Lexapro to 20 mg daily for mood/anxiety. Melatonin 3 mg when necessary daily at bedtime for sleep. Can continue with Xanax when necessary for anxiety, will attempt to titrate patient off this medication. Spoke with nurse about trying to limit benzodiazepines including Xanax and Ativan whenever possible as this may make patient or tolerant or confused or lead to a paradoxical response. Can continue with Depakote as prescribed. -Patient's Depakote level was 84.7, awaiting brain MRI likely to get done soon after VNS is turned off -Will continue to follow along to see if patient may require inpatient psychiatric hospitalization. Continue with medical management and control of seizures. Appreciate neurology recommendations and will continue to coordinate with neurology. -Please contact with any questions.
[2019-06-12 12:24] LABS: Glucose,Whole Blood 150 mg/dL (75-99)
[2019-06-12] MEDS: ATORVASTATIN 10 MG TAB PO SCH (12:40)
[2019-06-12] MEDS: OLANZapine 2.5 MG TAB PO PRN (12:55)
--- NOTE | 2019-06-12 13:29 | P.PN ---
Subjective Progress Note Date: 06/12/19 Principal diagnosis: 1. Altered mental status with associated anxiety akathisia and depression. 2. Possible multiple sclerosis exacerbation. 3. Breakthrough of epileptic and nonepileptic seizures. Subjective: Nursing reports the patient has continued to have some probable non epileptic spells through the night. He seems to be getting more agitated more emotionally labile. MRI for transfer at [place] is in works now for MRI to be completed. Objective - Vital Signs Vital signs: Vital Signs Temp 97.3 F L 06/12/19 07:46 Pulse 67 06/12/19 07:46 Resp 16 06/12/19 07:46 BP 120/69 06/12/19 07:46 Pulse Ox 96 06/12/19 07:46 Intake & Output 06/11/19 06/12/19 06/12/19 18:59 06:59 18:59 Intake Total 540 Balance 540 Weight 92.079 kg Intake: Oral 540 Other: Voiding Method Toilet # Voids 2 1 - Exam The neuro exam was deferred this morning due to the patient being emotionally labile. When we try to discuss the transfer over to [place] to have the MRI and then return back here he became quite tearful and nervous. Due to his mental state the examination today was deferred. - Labs CBC & Chem 7: 06/12/19 06:58 06/12/19 06:58 Labs: Abnormal Lab Results - Last 24 Hours (Table) 06/11/19 06/11/19 06/12/19 Range/Units 16:43 21:22 01:16 RBC (4.30-5.90) m/uL Hgb (13.0-17.5) gm/dL Hct (39.0-53.0) % Lymphocytes # (1.0-4.8) k/uL Chloride (98-107) mmol/L BUN (9-20) mg/dL Creatinine (0.66-1.25) mg/dL Glucose (74-99) mg/dL POC Glucose (mg/dL) 103 H 178 H 196 H (75-99) mg/dL AST (17-59) U/L 06/12/19 06/12/19 06/12/19 Range/Units 06:58 06:58 07:21 RBC 3.54 L (4.30-5.90) m/uL Hgb 10.9 L (13.0-17.5) gm/dL Hct 33.5 L (39.0-53.0) % Lymphocytes # 0.2 L (1.0-4.8) k/uL Chloride 108 H (98-107) mmol/L BUN 39 H (9-20) mg/dL Creatinine 1.36 H (0.66-1.25) mg/dL Glucose 155 H (74-99) mg/dL POC Glucose (mg/dL) 175 H (75-99) mg/dL AST 16 L (17-59) U/L 06/12/19 Range/Units 12:18 RBC (4.30-5.90) m/uL Hgb (13.0-17.5) gm/dL Hct (39.0-53.0) % Lymphocytes # (1.0-4.8) k/uL Chloride (98-107) mmol/L BUN (9-20) mg/dL Creatinine (0.66-1.25) mg/dL Glucose (74-99) mg/dL POC Glucose (mg/dL) 150 H (75-99) mg/dL AST (17-59) U/L Assessment and Plan Assessment: Assessment: This 54-year-old gentleman who was admitted due to increasing altered mental status that involved agitation, akathisia, and heightened anxiety. The patient was in his baseline mental state back in December 2018. Often described by his family and is very laid back until he began to takes several medications for his increasing cognitive/short term memory impairment. His believes that there might have been a drug reaction that has reset his whole personality as a result this lead over the following months to multiple admissions between [facility] and [facility] sorting out mid changes. He returned here last weekend with increasing agitation and restlessness hypersexuality. Many symptoms that were suspicious for alin often seen with bipolar disorder. Through this admission we have now determine after discussion with his neurologist in the community, he does not have progressive multifocal leukoencephalopathy which can occur with his current multiple sclerosis medication he receives every 5 months. He has not however had an MRI since 2017. Based on this we feel it is needed to review the entire neuro axis to assure that he does not have new lesions now and other parts of the nervous system. Psychiatry's recommendations are much appreciated. He does appear to have evidence of generalized anxiety disorder and depression that needs to be addressed psychiatrically. Review of his labs on this admission has determined that his Depakote trough level is supratherapeutic at 87. The trough level should normally be between 55-65. In addition his ammonia level was mildly elevated. Adjustments will be made today in his Depakote by decreasing his dose by 25%. He has been started on lactulose to control the ammonia level. I've also discussed with his starting supplemental carnitine as long-term exposure to Depakote can increase risk for carnitine deficiency which can lead to permanent cardiac damage. Summary 1. Acute on chronic personality changes involving agitation, akathisia, heightened anxiety and depression after medications given for cognitive impairment back in JanuaryFebruary 2019. The symptoms are not typical for pseudobulbar affect. 2. Supratherapeutic trough level of valproic acid. 3. Mildly elevated ammonia level secondary to valproic acid. 4. Confirmed negative workup for progressive multifocal leukoencephalopathy. 5. Psychiatric: Panic disorder. Generalized anxiety disorder. Severe depression. 6. Restless leg syndrome associated with chronic anemia of unclear etiology. 7. Multiple sclerosis: Relapsed remitting 8. Seizure disorder: Epileptic and nonepileptic. Plan: 1. Decrease valproic acid dose by 25%. Recheck trough level Sunday morning. 2. Patient to transfer over the next 48 hours to [facility] in [place] for MRI of the neuro axis with and without contrast. Patient will then return back to [facility]. Continue with pulse dose Solu-Medrol 750 mg for total 3 days. We will shorten the duration of this treatment to only 3 days due to heightened anxiety that may be associated with the high level of steroids. This is being given under the presumed assumption that he is having an exacerbation. 3. Continue with lactulose. 4. Proceed with anemia workup. 5. Provide prescription for Carnitor sugar-free to be filled in the private community pharmacy. 6. Please note that there will not be on-site neurology available Sunday or Sunday. If there are any issues that come up patella neurology will need to be consulted. Dr. Jack will be returning on June 15. Thank you for this consultation. This patient's prognosis remains guarded. Further recommendations will be made as this case evolves. (1) Acute anxiety Current Visit: No Status: Acute Code(s): F41.9 - ANXIETY DISORDER, UNSPECIFIED SNOMED Code(s): 12908252 (2) Altered mental status Current Visit: No Status: Acute Code(s): R41.82 - ALTERED MENTAL STATUS, UNSPECIFIED SNOMED Code(s): 596909529 (3) Multiple sclerosis Current Visit: No Status: Acute Code(s): G35 - MULTIPLE SCLEROSIS SNOMED Code(s): 29704201 (4) Muscle spasms of both lower extremities Current Visit: No Status: Acute Code(s): M62.838 - OTHER MUSCLE SPASM SNOMED Code(s): 370380038 (5) Seizure disorder Current Visit: No Status: Acute Code(s): G40.909 - EPILEPSY, UNSP, NOT INTRACTABLE, WITHOUT STATUS EPILEPTICUS SNOMED Code(s): 370613899
[2019-06-12 17:36] LABS: Glucose,Whole Blood 234 mg/dL (75-99)
--- NOTE | 2019-06-12 17:49 | P.PN ---
Subjective Progress Note Date: 06/12/19 This is a 54-year-old gentleman admitted with altered mental status, possible MS exacerbation and multiple other medical issues. Evaluated by both psychiatry and neurology with recommendations noted and appreciated. Medications adjusted with Seroquel discontinued, Zyprexa initiated, Lexapro increased. Patient having multiple short episodes of arms tensing with fingers curling up without blank stare which states is what he commonly does with MS exacerbation and expresses concern that patient is not receiving IV steroid tx. They were unable to have MRI of brain completed, at [facility]-rescheduled. EGD reported normal with significant amount of beta activity suspect induced by Xanax. Amm onia 30 yesterday, 22 on 05/05. Currently patient calm without any current seizure activity. Denies any lightheadedness, dizziness or focal deficits. Depakote level 62. Denies any chest pain, palpitations or shortness of breath. 06/12/19 Patient had rough night, last night, with increased anxiety, agitation, tremors possible nonepileptic seizure activity. Evaluated further by a both psychiatry and neurology, with recommendations noted and appreciated Maintained on lactulose related to elevated ammonia. Arrangements in progress for transferr to [place] to facilitate MRI, as per neurology. With elevated Depakote trough, Depakote dose decreased. Hemoglobin 10.9. Objective - Vital Signs Vital signs: Vital Signs Temp 97.3 F L 06/12/19 07:46 Pulse 67 06/12/19 07:46 Resp 16 06/12/19 07:46 BP 120/69 06/12/19 07:46 Pulse Ox 96 06/12/19 07:46 Intake & Output 06/11/19 06/12/19 06/12/19 18:59 06:59 18:59 Intake Total 540 Balance 540 Weight 92.079 kg Intake: Oral 540 Other: Voiding Method Toilet # Voids 2 1 2 - Exam PHYSICAL EXAM: VITAL SIGNS: [As above] GENERAL: Sitting up in bed, anxious, agitated HEENT: Conjunctivae normal. eyes normal. Oral mucosa moist NECK: No JVD. No thyroid enlargement. CARDIOVASCULAR: S1, S2 regular.. No murmur RESPIRATION: Breath sounds diminished in the bases. No rhonchi or crackles. ABDOMEN: Soft, nontender . No guarding. no masses palpable. Bowel sounds heard. LEGS: No edema. no swelling PSYCHIATRY: Alert and oriented X 2, mild tremors, agitated, anxious NERVOUS SYSTEM: Cranial N 2-12 grossly normal. Skin: No rash, warm and dry - Labs CBC & Chem 7: 06/12/19 06:58 06/12/19 06:58 Labs: Abnormal Lab Results - Last 24 Hours (Table) 06/11/19 06/12/19 06/12/19 Range/Units 21:22 01:16 06:58 RBC (4.30-5.90) m/uL Hgb (13.0-17.5) gm/dL Hct (39.0-53.0) % Lymphocytes # (1.0-4.8) k/uL Chloride 108 H (98-107) mmol/L BUN 39 H (9-20) mg/dL Creatinine 1.36 H (0.66-1.25) mg/dL Glucose 155 H (74-99) mg/dL POC Glucose (mg/dL) 178 H 196 H (75-99) mg/dL AST 16 L (17-59) U/L 06/12/19 06/12/19 06/12/19 Range/Units 06:58 07:21 12:18 RBC 3.54 L (4.30-5.90) m/uL Hgb 10.9 L (13.0-17.5) gm/dL Hct 33.5 L (39.0-53.0) % Lymphocytes # 0.2 L (1.0-4.8) k/uL Chloride (98-107) mmol/L BUN (9-20) mg/dL Creatinine (0.66-1.25) mg/dL Glucose (74-99) mg/dL POC Glucose (mg/dL) 175 H 150 H (75-99) mg/dL AST (17-59) U/L Assessment and Plan Assessment: Acute altered mental status accompanied by agitation, acute metabolic e ncephalopathy, possible MS exacerbation in a patient with history of MS and epilepsy Breakthrough Epileptic and nonepileptic seizure Depression Anxiety Mild neurocognitive disorder, prior Mini mental status exam score 24/30 Gastroparesis with 60 pound weight loss Hyperammonemia secondary to Depakote Dehydration secondary to poor oral intake Acute renal failure, prerenal secondary to the above, improved with IV fluid hydration. Hypersexuality Cannabis use Chronic Anemia, etiology unclear Restless leg syndrome secondary to the above Plan: Continue on current medication regime ,monitoring and symptomatic treatment. Arrangements for transfer to [place] for MRI in progress. High-dose IV Steroids adjusted, to be administered in a.m. continue on lactulose with close monitoring of ammonia levels, coags with repeat labs ordered for a.m. given patient's anxiety/agitation, would not currently introduce a new consult- GI at this time ; will continue close monitoring with further outpatient follow- up recommended .Maintain seizure precautions. Prognosis guarded given multiple complex medical issues. The impression and plan of care has been dictated as directed. : I performed a history and examination of this patient, discussed the same with the dictator. I agree with the dictator's note ,documented as a scribe. Any additional findings or plans will be noted.
[2019-06-12 20:57] LABS: Glucose,Whole Blood 265 mg/dL (75-99)
[2019-06-12] MEDS ORDERED: OLANZapine 10 MG TAB PO SCH (21:00)
[2019-06-13] MEDS: FAMOTIDINE 20 MG TAB PO SCH ×2 (02:14→08:04)
[2019-06-13] MEDS: ALPRAZolam 0.5 MG TAB PO PRN ×2 (02:16→08:59)
[2019-06-13] MEDS: SODIUM CHLORIDE 0.9% 1,000 ML IV SCH ×3 (05:35→21:38)
[2019-06-13] MEDS: LORazepam 2 MG/ML INJ IV PRN ×2 (06:11→11:01)
[2019-06-13 07:09] LABS: Glucose,Whole Blood 101 mg/dL (75-99)
[2019-06-13] MEDS: INSULIN ASPART (NovoLOG) 100 UNIT/ML VIAL SQ SCH ×4 (07:54→21:21)
[2019-06-13] MEDS: OLANZapine 2.5 MG TAB PO SCH (07:56)
[2019-06-13] MEDS: LISINOPRIL-HCTZ 20-25 MG 1 EACH TAB PO SCH (07:56)
[2019-06-13] MEDS: ASPIRIN 81 MG PO SCH (08:04)
[2019-06-13] MEDS: BACLOFEN 10 MG TAB PO SCH ×4 (08:04→21:20)
[2019-06-13] MEDS: ESCITALOPRAM 20 MG TAB PO SCH (08:04)
[2019-06-13] MEDS: DIVALPROEX ER 500 MG TAB.ER.24H PO SCH ×3 (08:04→21:19)
[2019-06-13] MEDS: IBUPROFEN 800 MG TAB PO SCH ×3 (08:04→21:20)
[2019-06-13] MEDS: LACOSAMIDE 150 MG TABLET PO SCH ×2 (08:04→21:36)
[2019-06-13] MEDS: LACOSAMIDE 50 MG TABLET PO SCH ×2 (08:04→21:36)
[2019-06-13] MEDS: LACTULOSE 20 GM/30 ML CUP PO SCH ×2 (08:05→21:19)
[2019-06-13 12:07] LABS: Glucose,Whole Blood 209 mg/dL (75-99)
--- NOTE | 2019-06-13 12:15 | P.PN ---
Progress Note - Text Progress Note Date: 06/13/19 Interval History: Patient was seen today for follow-up due to agitation and uncontrolled emotion s/lability. Patient was seen sleeping with his at the bedside and was awoken by service writer advisor as he entered into the room. Patient claims that he did have some mild improvement with regards to his anxiety however was somewhat confused and didn't know when he started taking his Zyprexa. He claims that he is continuing to have mood swings and depression at times. He states that he is continuing to have anxiety throughout the day. He states that he did not sleep well last night. Patient also states that he had some sort of seizure earlier today and required Ativan. At this time patient denies any suicidal or homicidal ideations intent or plan and denies any auditory or visual hallucinations. Mental Status Exam: General Appearance: Patient appears to be less tearful today, cooperative and laying in his bed. Patient appears to have fair hygiene and grooming wearing hospital gown with improved eye contact. Behavior: Laying in his bed calmly. Attempting to cooperate. Speech: Normal rate and rhythm, soft tone. Mood/Affect: Claims that his mood is "up and down" however has been improving mildly. Affect is congruent. Suicidality/Homicidality: Denies Perceptions: Denies any auditory or visual hallucinations. Though content/process: Goal oriented, logical. [place]. Memory and concentration: Alert and oriented 3, improved fund of knowledge and improved concentration. Judgment and insight: Improving mildly. Assessment Mood disorder unspecified, rule out bipolar depression versus major depressive disorder Anxiety disorder unspecified. History of opiate dependence Cannabis use disorder, mild Plan: -At this time patient DOES NOT meet criteria for inpatient psychiatric admission. -Would recommend the following medication changes/additions: Increased Zyprexa 5 mg every morning + 2.5mg prn at 1400 + 12.5 mg daily at bedtime for mood stabilization/depression. We will continue with Lexapro to 20 mg daily for mood/anxiety. Increased Melatonin 5 mg daily at bedtime for sleep. Can continue with Xanax when necessary for anxiety, will attempt to titrate patient off this medication. Spoke with nurse about trying to limit benzodiazepines including Xanax and Ativan whenever possible as this may make patient or tolerant or confused or lead to a paradoxical response. Depakote had been decreased to 500 mg 3 times a day. -Patient's Depakote level was 84.7, patient likely to receive brain MRI at [facility]. -Will continue to follow along to see if patient may require inpatient psychiatric hospitalization. Continue with medical management and control of seizures. Appreciate neurology recommendations and will continue to coordinate with neurology. -Please contact with any questions.
[2019-06-13] MEDS: ATORVASTATIN 10 MG TAB PO SCH (12:42)
--- NOTE | 2019-06-13 18:18 | P.PN ---
Subjective Progress Note Date: 06/13/19 This is a 54-year-old gentleman admitted with altered mental status, possible MS exacerbation and multiple other medical issues. Evaluated by both psychiatry and neurology with recommendations noted and appreciated. Medications adjusted with Seroquel discontinued, Zyprexa initiated, Lexapro increased. Patient having multiple short episodes of arms tensing with fingers curling up without blank stare which states is what he commonly does with MS exacerbation and expresses concern that patient is not receiving IV steroid tx. They were unable to have MRI of brain completed, at [facility]-rescheduled. EGD reported normal with significant amount of beta activity suspect induced by Xanax. Amm onia 30 yesterday, 22 on 05/05. Currently patient calm without any current seizure activity. Denies any lightheadedness, dizziness or focal deficits. Depakote level 62. Denies any chest pain, palpitations or shortness of breath. 06/12/19 Patient had rough night, last night, with increased anxiety, agitation, tremors possible nonepileptic seizure activity. Evaluated further by a both psychiatry and neurology, with recommendations noted and appreciated Maintained on lactulose related to elevated ammonia. Arrangements in progress for transferr to [place] to facilitate MRI, as per neurology. With elevated Depakote trough, Depakote dose decreased. Hemoglobin 10.9. 06/13/2019 Staff reports uneventful night. reports patient did not sleep well. Depakote level 84.7, has been decreased as per neurology. Nonepileptic seizure activity reported earlier, received Ativan. Evaluated by psychiatry, recommendations noted. Arrangements in process for transfer to [place] for brain MRI. Denies chest pain, palpitations or shortness of breath. Objective - Vital Signs Vital signs: Vital Signs Temp 97.7 F 06/13/19 15:00 Pulse 66 06/13/19 15:00 Resp 16 06/13/19 15:00 BP 160/84 06/13/19 15:00 Pulse Ox 99 06/13/19 15:00 Intake & Output 06/12/19 06/13/19 06/13/19 18:59 06:59 18:59 Weight 92.079 kg Other: Voiding Method Toilet # Voids 2 2 2 - Exam PHYSICAL EXAM: VITAL SIGNS: [As above] GENERAL: Sitting up in bed, anxious, agitated HEENT: Conjunctivae normal. eyes normal. Oral mucosa moist NECK: No JVD. No thyroid enlargement. CARDIOVASCULAR: S1, S2 regular.. No murmur RESPIRATION: Breath sounds diminished in the bases. No rhonchi or crackles. No wheezing ABDOMEN: Soft, nontender . No guarding. no masses palpable. Bowel sounds heard. LEGS: No edema. no swelling PSYCHIATRY: Alert and oriented X 2, mild tremors, agitated, anxious NERVOUS SYSTEM: Cranial N 2-12 grossly normal. Skin: No rash, warm and dry - Labs CBC & Chem 7: 06/12/19 06:58 06/12/19 06:58 Labs: Abnormal Lab Results - Last 24 Hours (Table) 06/12/19 06/13/19 06/13/19 Range/Units 20:43 07:06 12:05 POC Glucose (mg/dL) 265 H 101 H 209 H (75-99) mg/dL Assessment and Plan Assessment: Acute altered mental status accompanied by agitation, acute metabolic encephalopathy, possible MS exacerbation in a patient with history of MS and epilepsy Breakthrough Epileptic and nonepileptic seizure Depression Anxiety Mild neurocognitive disorder, prior Mini mental status exam score 24/30 Gastroparesis with 60 pound weight loss Hyperammonemia secondary to Depakote Dehydration secondary to poor oral intake Acute renal failure, prerenal secondary to the above, improved with IV fluid hydration. Hypersexuality Cannabis use Chronic Anemia, etiology unclear, further workup outpatient Restless leg syndrome secondary to the above Plan: Continue on current medication regime ,monitoring and symptomatic treatment. Arrangements for transfer to [place] for brain MRI in progress. Maintain lactulose with close monitoring of ammonia levels, coags with repeat labs ordered for a.m. Seizure precautions. Follow closely with psychiatry and neurology. Prognosis guarded given multiple complex medical issues. The impression and plan of care has been dictated as directed. : I performed a history and examination of this patient, discussed the same with the dictator. I agree with the dictator's note ,documented as a scribe. Any additional findings or plans will be noted.
[2019-06-13 20:03] LABS: Glucose,Whole Blood 319 mg/dL (75-99)
[2019-06-13] MEDS: OLANZapine 5 MG TAB PO SCH (21:20)
[2019-06-13] MEDS: MELATONIN 5 MG TABLET PO SCH (21:21)
[2019-06-13] MEDS: guaiFENesin-DM 600/30MG 1 EACH TAB.ER.12H PO SCH (21:36)
--- NOTE | 2019-06-13 23:11 | P.PN ---
Subjective Progress Note Date: 06/13/19 Principal diagnosis: 1. Altered mental status 2. Breakthrough seizures both epileptic nonepileptic 3. Possible MS exacerbation. Subjective: Patient continues to have fluctuating emotional outbursts of crying and anxiety attacks. Per nursing staff the patient has been requesting on a regular basis now Ativan. He is consistently 5 mg of Ativan in the last 24 hours in addition to Xanax. Patient prepared to go for MRI of the brain today. Patient unable to complete MRI today due to these about emotional outbursts. Objective - Vital Signs Vital signs: Vital Signs Temp 97.7 F 06/13/19 21:00 Pulse 77 06/13/19 21:00 Resp 18 06/13/19 21:00 BP 134/67 06/13/19 21:00 Pulse Ox 94 L 06/13/19 21:00 Intake & Output 06/13/19 06/13/19 06/14/19 06:59 18:59 06:59 Intake Total 450 Output Total 90 Balance -90 450 Weight 92.079 kg Intake: Oral 450 Output: Drainage 90 Abdomen 90 Other: Voiding Method Toilet Toilet # Voids 2 2 1 - Exam Objective: Patient examined and chart reviewed. Mental status: Patient has frequent outbursts of crying that are suspicious for pseudobulbar affect now. They're triggered very quickly by just simply discussing further management out of proportion to what is being discussed. His speech is slowed slightly slurred. Affect very sad. Pupils: 2 mm equally reactive to light and accommodation. No internuclear ophthalmoplegia appreciated. Cranial nerves: Cranial nerves III through XII appear symmetric and intact. Motor examination: Strength is 5 out of 5 in the right upper and lower extremity. There is proximal weakness still involving the left upper extremities with the biceps and deltoids. Wrist flexion and extension on the left is 4/5. Left lower extremity testing is shows 4/5 weakness at the hip flexor improving distally to -[address] Pronator drift positive on the left. Status testing is somewhat uncoordinated slightly dysmetric on the left. No tremor noted. [id number] maneuver is intact on both legs. Deep tendon reflexes deferred. Sensory examination grossly intact to light touch pinprick over the right side but diminished entirely over the left upper extremity and left lower extremity to light touch. Gait examination deferred. Patient is able to stand without assistance he is wide-based and unsteady. - Labs CBC & Chem 7: 06/12/19 06:58 04 06:58 Labs: Abnormal Lab Results - Last 24 Hours (Table) 06/13/19 06/13/19 06/13/19 Range/Units 07:06 12:05 19:58 POC Glucose (mg/dL) 101 H 209 H 319 H (75-99) mg/dL Assessment and Plan Assessment: Plan: 1. On today's follow-up evaluation I believe it is highly probable that this patient is experiencing pseudobulbar affect. Due to these emotional outbursts he was unable to complete his MRI of the brain. The patient did appear to easily go into explosive crying at just the discussion of his care. This seemed quite out of proportion to normal. I would like to give this patient on a trial of dextromethorphan. The DM which is approved by the FDA for PDE is not available on this formulary. A less expensive alternative is available using either Robitussin-DM, Delsym & Mucinex DM. On the hospital formulary Mucinex DM is available which contains 30 mg of dextromethorphan. 2. Start Mucinex DM 1 tablet twice a day which will provide 60 mg dextromethorphan daily. 3. Continue with lower dose of Depakote. Community neurologists should check this Depakote trough level next week. The goal is for this to be between 55-65 mg/dL. 4. Recheck ammonia level again. Once it has been normalized. Cut back dose to 1 lactulose daily. He should continue on this while on Depakote as to prevent future I Frahm anemia. 5. We will defer further neuro imaging study attempts with his neurologist in the community. Patient was unable to complete study today to to emotional outbursts. 6. Avoid Ativan. Patient should not be receiving this for anxiety. Only for breakthrough seizure activity. Continue with Xanax if approved by psychiatrist. 7. Patient should be started on Carnitor sugar free solution on discharge. This prescription has been provided to his . 8. Due to this patient's erratic sleep habits and poor sleep continuity and witnessed apneas, he would benefit from a formal evaluation by board-certified sleep medicine physician for insomnia and sleep disordered breathing. There will not be a neurologist on site at the facility this weekend however telemedicine neurology consultation is available. Dr. Jack will be back on June 15 on site. Thank you for allowing me to dissipate care of your patient. This patient's prognosis remains guarded. He has very complicated issues with nonepileptic seizures, beginning of pseudobulbar affect, underlying major depression in general anxiety disorder. This patient would greatly benefit from establishment with the community psychiatrist for therapy. (1) Acute anxiety Current Visit: No Status: Acute Code(s): F41.9 - ANXIETY DISORDER, UNSPECIFIED SNOMED Code(s): 60898138 (2) Altered mental status Current Visit: No Status: Acute Code(s): R41.82 - ALTERED MENTAL STATUS, UNSPECIFIED SNOMED Code(s): 427868421 (3) Multiple sclerosis Current Visit: No Status: Acute Code(s): G35 - MULTIPLE SCLEROSIS SNOMED Code(s): 86019807 (4) Muscle spasms of both lower extremities Current Visit: No Status: Acute Code(s): M62.838 - OTHER MUSCLE SPASM SNOMED Code(s): 340219061 (5) Seizure disorder Current Visit: No Status: Acute Code(s): G40.909 - EPILEPSY, UNSP, NOT INTRACTABLE, WITHOUT STATUS EPILEPTICUS SNOMED Code(s): 497805331
[2019-06-14] MEDS: ALPRAZolam 0.5 MG TAB PO PRN ×4 (02:33→19:03)
[2019-06-14] MEDS: OLANZapine 5 MG TAB PO SCH ×2 (06:06→20:36)
[2019-06-14] MEDS: LACOSAMIDE 50 MG TABLET PO SCH ×2 (07:16→20:35)
[2019-06-14] MEDS: FAMOTIDINE 20 MG TAB PO SCH (07:16)
[2019-06-14] MEDS: guaiFENesin-DM 600/30MG 1 EACH TAB.ER.12H PO SCH ×2 (07:16→20:36)
[2019-06-14] MEDS: LACOSAMIDE 150 MG TABLET PO SCH ×2 (07:16→20:35)
[2019-06-14] MEDS: IBUPROFEN 800 MG TAB PO SCH ×3 (07:16→20:36)
[2019-06-14] MEDS: BACLOFEN 10 MG TAB PO SCH ×4 (07:16→20:36)
[2019-06-14] MEDS: LISINOPRIL-HCTZ 20-25 MG 1 EACH TAB PO SCH (07:16)
[2019-06-14] MEDS: DIVALPROEX ER 500 MG TAB.ER.24H PO SCH ×3 (07:16→20:36)
[2019-06-14] MEDS: ASPIRIN 81 MG PO SCH (07:16)
[2019-06-14] MEDS: ESCITALOPRAM 20 MG TAB PO SCH (07:16)
[2019-06-14] MEDS: ATORVASTATIN 10 MG TAB PO SCH (07:17)
[2019-06-14] MEDS: LACTULOSE 20 GM/30 ML CUP PO SCH ×2 (07:17→20:35)
[2019-06-14] MEDS: INSULIN ASPART (NovoLOG) 100 UNIT/ML VIAL SQ SCH ×4 (07:17→20:36)
[2019-06-14 07:19] LABS: Glucose,Whole Blood 148 mg/dL (75-99)
[2019-06-14 07:36] LABS: Basophils % (A) 0 %; Eosinophils % (A) 0 %; HCT 31.3 % (39.0-53.0); HGB 10.2 gm/dL (13.0-17.5); Lymphocytes # (A) 0.4 k/uL (1.0-4.8); Lymphocytes % (A) 5 %; MCH 31.1 pg (25.0-35.0); MCHC 32.5 g/dL (31.0-37.0); MCV 95.8 fL (80.0-100.0); Mean Platelet Volume 7.9; Monocytes # (A) 0.5 k/uL (0-1.0); Monocytes % (A) 6 %; Neutrophils # (A) 6.9 k/uL (1.3-7.7); Neutrophils % (A) 88 %; Platelet Count 219 k/uL (150-450); RBC 3.27 m/uL (4.30-5.90); RDW 13.7 % (11.5-15.5); WBC 7.8 k/uL (3.8-10.6)
[2019-06-14 07:46] LABS: Calcium 8.9 mg/dL (8.4-10.2); Potassium 3.6 mmol/L (3.5-5.1)
[2019-06-14 12:32] LABS: Glucose,Whole Blood 119 mg/dL (75-99)
[2019-06-14] MEDS: SODIUM CHLORIDE 0.9% 1,000 ML IV SCH ×2 (13:11→19:03)
[2019-06-14] MEDS: OLANZapine 2.5 MG TAB PO PRN (15:06)
[2019-06-14 16:06] LABS: Arsenic Whole Blood <3 mcg/L (< 23); Mercury Whole Blood <2 mcg/L (< 11)
[2019-06-14 16:52] LABS: Glucose,Whole Blood 161 mg/dL (75-99)
[2019-06-14 19:49] LABS: Glucose,Whole Blood 181 mg/dL (75-99)
[2019-06-14] MEDS: MELATONIN 5 MG TABLET PO SCH (20:36)
--- NOTE | 2019-06-14 20:48 | PN ---
PROGRESS NOTE 54-year-old white male with MS leukoencephalopathy, anxiety, depression, possibly psychotic break, getting information from Neurology as well as Psychiatry. Family wants another Neurology pending on Sunday with a new marii. Continue to treat for MS flare with Solu-Medrol 1 today. Medications were all reviewed. Discussed with the patient could use Ativan q.4 hours p.r.n. for anxiety/psychotic breaks. Continue on Zyprexa per Psychiatry. Continue with Solu-Medrol for MS flare. Family is refusing any psychiatric transfer at this time. Continue to monitor over the weekend. PHYSICAL EXAM: Vital signs stable. Afebrile. CARDIOVASCULAR: S1, S2. LUNGS: Clear. Neuro: The patient is able to ambulate by himself with help, but is very dependent on his to tell him what to do and where to go and wants to do. Appears very anxious. We talked about his healthcare, he has panic attacks, starts shaking and tremors. Please see further orders. Severely guarded prognosis. MMODL / IJN: [id number] /
[2019-06-14 21:57] VITALS: RESP 18
[2019-06-15 05:38] VITALS: BP 131/66; PULSE 54; TEMP 97.4
[2019-06-15] MEDS: LACOSAMIDE 50 MG TABLET PO SCH (07:03)
[2019-06-15] MEDS: BACLOFEN 10 MG TAB PO SCH (07:03)
[2019-06-15] MEDS: FAMOTIDINE 20 MG TAB PO SCH (07:03)
[2019-06-15] MEDS: ATORVASTATIN 10 MG TAB PO SCH (07:03)
[2019-06-15] MEDS: OLANZapine 5 MG TAB PO SCH (07:03)
[2019-06-15] MEDS: ESCITALOPRAM 20 MG TAB PO SCH (07:03)
[2019-06-15] MEDS: IBUPROFEN 800 MG TAB PO SCH (07:03)
[2019-06-15] MEDS: ASPIRIN 81 MG PO SCH (07:03)
[2019-06-15] MEDS: LACTULOSE 20 GM/30 ML CUP PO SCH (07:04)
[2019-06-15] MEDS: guaiFENesin-DM 600/30MG 1 EACH TAB.ER.12H PO SCH (07:04)
[2019-06-15] MEDS: LISINOPRIL-HCTZ 20-25 MG 1 EACH TAB PO SCH (07:04)
[2019-06-15] MEDS: LACOSAMIDE 150 MG TABLET PO SCH (07:04)
[2019-06-15] MEDS: DIVALPROEX ER 500 MG TAB.ER.24H PO SCH (07:04)
[2019-06-15] MEDS: ALPRAZolam 0.5 MG TAB PO PRN (07:04)
[2019-06-15 07:15] LABS: Glucose,Whole Blood 117 mg/dL (75-99)
[2019-06-15] MEDS: INSULIN ASPART (NovoLOG) 100 UNIT/ML VIAL SQ SCH (08:08)
[2019-06-15] MEDS ORDERED: methylPREDNISolone SOD SUCC 1,000 MG in SODIUM CHLORIDE 0.9% 250 ML IVPB SCH (09:00)
== END 2019-06-15 10:35 | disposition home or self-care (01) | DRG 58 ==
LOC: 6NMEDSUR 19:10
PROVIDERS: ADMIT Family Medicine; ATTEND Family Medicine
DX: G35 Multiple sclerosis (principal); G93.41 Metabolic encephalopathy; E72.20 Disorder of urea cycle metabolism, unspecified; K90.9 Intestinal malabsorption, unspecified; N17.9 Acute kidney failure, unspecified; D64.9 Anemia, unspecified; E11.43 Type 2 diabetes mellitus with diabetic autonomic (poly)neuropathy; R56.9 Unspecified convulsions; G25.71 Drug induced akathisia; E11.65 Type 2 diabetes mellitus with hyperglycemia; E86.0 Dehydration; F12.90 Cannabis use, unspecified, uncomplicated; F32.9 Major depressive disorder, single episode, unspecified; F40.240 Claustrophobia; F41.0 Panic disorder [episodic paroxysmal anxiety]; F41.1 Generalized anxiety disorder; G25.81 Restless legs syndrome; G31.84 Mild cognitive impairment of uncertain or unknown etiology; G40.909 Epilepsy, unspecified, not intractable, without status epilepticus; K31.84 Gastroparesis; T42.6X5A Adverse effect of other antiepileptic and sedative-hypnotic drugs, initial encounter; F51.04 Psychophysiologic insomnia; H26.9 Unspecified cataract; K21.9 Gastro-esophageal reflux disease without esophagitis; M19.90 Unspecified osteoarthritis, unspecified site; F48.2 Pseudobulbar affect; Z79.4 Long term (current) use of insulin; Z79.82 Long term (current) use of aspirin; Z79.899 Other long term (current) drug therapy; Z87.442 Personal history of urinary calculi; Z82.49 Family history of ischemic heart disease and other diseases of the circulatory system; Z82.5 Family history of asthma and other chronic lower respiratory diseases; Z88.0 Allergy status to penicillin; Z88.8 Allergy status to other drugs, medicaments and biological substances
CPT/HCPCS: 80048; 80053; 80061; 80164; 80235; 80306; 81003; 82140; 82175; 82306; 82379; 82570; 82607; 82728; 82746; 83036; 83540; 83550; 83655; 83825; 83970; 84132; 84207; 84439; 84443; 84480; 84630; 85025; 95819

== ENCOUNTER → 2019-08-22 | Outpatient (CLI) | payer BC ==
[2019-08-22 10:39] LABS: Basophils % (A) 1 %; Eosinophils # (A) 0.1 k/uL (0-0.7); Eosinophils % (A) 1 %; HCT 31.7 % (39.0-53.0); HGB 10.2 gm/dL (13.0-17.5); Lymphocytes # (A) 0.8 k/uL (1.0-4.8); Lymphocytes % (A) 12 %; MCH 31.2 pg (25.0-35.0); MCHC 32.1 g/dL (31.0-37.0); MCV 97.3 fL (80.0-100.0); Mean Platelet Volume 7.6; Monocytes # (A) 0.5 k/uL (0-1.0); Monocytes % (A) 9 %; Neutrophils # (A) 4.6 k/uL (1.3-7.7); Neutrophils % (A) 76 %; Platelet Count 197 k/uL (150-450); RBC 3.26 m/uL (4.30-5.90); RDW 14.1 % (11.5-15.5); WBC 6.1 k/uL (3.8-10.6)
[2019-08-22 16:19] LABS: African American GFR (CKD) 72.7 (60.0-200.0); Albumin 4.5 g/dL (3.80-4.90); Albumin/Globulin Ratio 2.5 (1.60-3.17); BUN/Creat Ratio 37.69 Ratio (12.00-20.00); Calcium 9.3 mg/dL (8.7-10.3); Globulin 1.8 g/dL (1.6-3.3); Non-African American GFR(CKD) 62.7 (60.0-200.0); Potassium 4.5 mmol/L (3.5-5.5); Total Bilirubin 0.2 mg/dL (0.3-1.2); Total Protein 6.3 g/dL (6.2-8.2)
== END | disposition home or self-care (01) ==
LOC: LABWHC1 10:07
PROVIDERS: ATTEND Psychiatry & Neurology Pain Medicine
DX: G35 Multiple sclerosis (principal)
CPT/HCPCS: 36415; 80053; 82306; 85025

== ENCOUNTER 2019-09-22 05:43 | Observation (INO) | payer BC ==
[2019-09-22] MEDS ORDERED: LORazepam 2 MG/ML INJ IV STA (06:23)
[2019-09-22] MEDS ORDERED: SODIUM CHLORIDE 0.9% 500 ML 500 ML IV STA (06:23)
[2019-09-22 06:48] LABS: Basophils % (A) 0 %; Eosinophils % (A) 0 %; HCT 34.4 % (39.0-53.0); HGB 11.2 gm/dL (13.0-17.5); Lymphocytes # (A) 0.3 k/uL (1.0-4.8); Lymphocytes % (A) 2 %; MCH 31.7 pg (25.0-35.0); MCHC 32.7 g/dL (31.0-37.0); Mean Platelet Volume 7.7; Monocytes # (A) 0.8 k/uL (0-1.0); Monocytes % (A) 7 %; Neutrophils % (A) 91 %; Platelet Count 187 k/uL (150-450); RBC 3.54 m/uL (4.30-5.90); RDW 13.8 % (11.5-15.5); WBC 12.1 k/uL (3.8-10.6)
[2019-09-22 06:58] LABS: Albumin 4.4 g/dL (3.5-5.0); Calcium 9.9 mg/dL (8.4-10.2); Magnesium 1.9 mg/dL (1.6-2.3); Potassium 4.5 mmol/L (3.5-5.1); Total Bilirubin 0.3 mg/dL (0.2-1.3); Total Protein 6.4 g/dL (6.3-8.2)
[2019-09-22] MEDS ORDERED: SODIUM CHLORIDE 0.9% 1,000 ML IV ONE (07:04)
--- NOTE | 2019-09-22 07:23 | ED ---
General Adult HPI - General Chief complaint: Anxiety Stated complaint: anxiety Time Seen by Provider: 09/22/19 06:06 Source: patient, RN notes reviewed Mode of arrival: ambulatory Limitations: no limitations - History of Present Illness Initial comments: This a 54-year-old male presents emergency Department with complaints of worsening anxiety issues. Patient was in the room state this has been ongoing issue since earlier this year. Patient does have underlying MS, seizure disorder along with pseudoseizure. Patient has been placed on Xanax for his anxiety issues with his be worsening. Patient denies any suicidal or homicidal. Patient denies any physical complaints other than he's been shaking. Patient sees his neurologist on a regular basis. Patient was recently finish a course of Solu-Medrol via or MS exacerbation. Patient denies any nausea vomiting no chest pain or shortness of breath. - Related Data Home Medications Medication Instructions Recorded Confirmed Aspirin 81 mg PO DAILY 11/14/17 09/22/19 Atorvastatin [Lipitor] 10 mg PO W/LUNCH 02/22/19 09/22/19 Lacosamide [Vimpat] 200 mg PO BID 02/22/19 09/22/19 metFORMIN HCL 1,000 mg PO BID 02/22/19 09/22/19 Ibuprofen [Motrin] 800 mg PO TID 05/18/19 09/22/19 Lisinopril-Hctz 10-12.5 mg 2 tab PO DAILY 05/18/19 09/22/19 [Zestoretic 10-12.5] ALPRAZolam [Xanax] 0.5 mg PO TID 06/09/19 09/22/19 Furosemide [Lasix] 20 mg PO DAILY PRN 06/09/19 09/22/19 Insulin Lispro [humaLOG Kwikpen] 10 unit SQ DAILY PRN 06/09/19 09/22/19 Potassium Chloride ER [K-Dur 10] 10 meq PO DAILY PRN 06/09/19 09/22/19 Baclofen [Lioresal] 20 mg PO QID 09/22/19 09/22/19 Divalproex Sodium [Depakote 500 mg PO QID 09/22/19 09/22/19 Sprinkle] Escitalopram Oxalate [Lexapro] 20 mg PO DAILY 09/22/19 09/22/19 OLANZapine [ZyPREXA] 2.5 mg PO DAILY@1200 09/22/19 09/22/19 OLANZapine [ZyPREXA] 10 mg PO HS 09/22/19 09/22/19 Previous Rx's Medication Instructions Recorded OLANZapine [ZyPREXA] 5 mg PO DAILY #0 tablet 06/15/19 Allergies Allergy/AdvReac Type Severity Reaction Status Date / Time Penicillins Allergy Severe Swelling Verified 09/22/19 06:46 prochlorperazine AdvReac Severe Hallucinati Verified 09/22/19 06:46 [From Compazine] ons prochlorperazine edisylate AdvReac Severe Hallucinati Verified 09/22/19 06:46 [From Compazine] ons prochlorperazine maleate AdvReac Severe Hallucinati Verified 09/22/19 06:46 [From Compazine] ons bupropion HCl AdvReac Intermediate Nausea & Verified 09/22/19 06:46 [From Wellbutrin] Vomiting gabapentin [From Neurontin] AdvReac Intermediate Nausea & Verified 09/22/19 06:46 Vomiting amantadine AdvReac Unknown Nausea & Verified 09/22/19 06:46 Vomiting Review of Systems ROS Statement: Those systems with pertinent positive or pertinent negative responses have been documented in the HPI. ROS Other: All systems not noted in ROS Statement are negative. Past Medical History Past Medical History: Chest Pain / Angina, Diabetes Mellitus, Eye Disorder, GERD/Reflux, Memory Impairment, Musculoskeletal Disorder, Neurologic Disorder, Osteoarthritis (OA), Renal Disease, Seizure Disorder Additional Past Medical History / Comment(s): gastroperisis MS, active lesions in brainstress, lt kidney stone, cataracts. History of Any Multi-Drug Resistant Organisms: None Reported Past Surgical History: Back Surgery, Heart Catheterization, Tonsillectomy Additional Past Surgical History / Comment(s): c spine, lumbar. spinal cord stimulator. VNS unit left chest. Past Anesthesia/Blood Transfusion Reactions: No Reported Reaction Past Psychological History: Anxiety, Depression Smoking Status: Never smoker Past Alcohol Use History: Occasional Past Drug Use History: Marijuana - Past Family History Mother Family Medical History: COPD, Hypertension Father Family Medical History: Coronary Artery Disease (CAD), Myocardial Infarction ([place]) Additional Family Medical History / Comment(s): cabg General Exam Limitations: no limitations General appearance: alert, in no apparent distress, anxious Head exam: Present: atraumatic, normocephalic, normal inspection Eye exam: Present: normal appearance, PERRL, EOMI. Absent: scleral icterus, conjunctival injection, periorbital swelling ENT exam: Present: normal exam, normal oropharynx, mucous membranes moist Neck exam: Present: normal inspection, full ROM. Absent: tenderness, meningismus, lymphadenopathy Respiratory exam: Present: normal lung sounds bilaterally. Absent: respiratory distress, wheezes, rales, rhonchi, stridor Cardiovascular Exam: Present: regular rate, normal rhythm, normal heart sounds. Absent: systolic murmur, diastolic murmur, rubs, gallop, clicks Neurological exam: Present: alert, oriented X3, CN II-XII intact, reflexes normal. Absent: motor sensory deficit Psychiatric exam: Present: anxious Skin exam: Present: warm, dry, intact, normal color. Absent: rash Course Vital Signs 09/22/19 05:45 Temperature 98.4 F Pulse Rate 83 Respiratory 18 Rate Blood Pressure 144/77 O2 Sat by Pulse 95 Oximetry Medical Decision Making - Medical Decision Making 54-year-old male presented for multiple complaints. Patient found to have acute kidney injury. This may be related to medication versus dehydration. Patient does have some underlying MS issues. Patient will be admitted for fluid hydration and further evaluation. - Lab Data Result diagrams: 09/22/19 06:31 09/22/19 06:31 Lab Results 09/22/19 09/22/19 Range/Units 06:31 06:31 WBC 12.1 H (3.8-10.6) k/uL RBC 3.54 L (4.30-5.90) m/uL Hgb 11.2 L (13.0-17.5) gm/dL Hct 34.4 L (39.0-53.0) % MCV 97.0 (80.0-100.0) fL MCH 31.7 (25.0-35.0) pg MCHC 32.7 (31.0-37.0) g/dL RDW 13.8 (11.5-15.5) % Plt Count 187 (150-450) k/uL Neutrophils % 91 % Lymphocytes % 2 % Monocytes % 7 % Eosinophils % 0 % Basophils % 0 % Neutrophils # 11.0 H (1.3-7.7) k/uL Lymphocytes # 0.3 L (1.0-4.8) k/uL Monocytes # 0.8 (0-1.0) k/uL Eosinophils # 0.0 (0-0.7) k/uL Basophils # 0.0 (0-0.2) k/uL Sodium 141 (137-145) mmol/L Potassium 4.5 (3.5-5.1) mmol/L Chloride 106 (98-107) mmol/L Carbon Dioxide 23 (22-30) mmol/L Anion Gap 12 mmol/L BUN 68 H (9-20) mg/dL Creatinine 1.89 H (0.66-1.25) mg/dL Est GFR (CKD-EPI)AfAm 46 (>60 ml/min/1.73 sqM) Est GFR (CKD-EPI)NonAf 40 (>60 ml/min/1.73 sqM) Glucose 191 H (74-99) mg/dL Calcium 9.9 (8.4-10.2) mg/dL Magnesium 1.9 (1.6-2.3) mg/dL Total Bilirubin 0.3 (0.2-1.3) mg/dL AST 16 L (17-59) U/L ALT 13 (4-49) U/L Alkaline Phosphatase 52 (38-126) U/L Total Protein 6.4 (6.3-8.2) g/dL Albumin 4.4 (3.5-5.0) g/dL Disposition Clinical Impression: Acute kidney injury, Multiple sclerosis, Occasional tremors Disposition: ADMITTED IP TO THIS [facility] Condition: Fair Instructions (If sedation given, give patient instructions): Generalized Anxiety Disorder (ED) Referrals: Bruce Khan MD [Primary Care Provider] - 1-2 days
[2019-09-22] MEDS ORDERED: ONDANSETRON 4 MG/2 ML VIAL IVP PRN (07:42)
[2019-09-22] MEDS ORDERED: NALOXONE 0.4 MG/ML 1 ML VIAL IV PRN (07:42)
[2019-09-22] MEDS ORDERED: LORazepam 2 MG/ML INJ IV PRN (07:43)
[2019-09-22] MEDS: SODIUM CHLORIDE 0.9% 1,000 ML IV SCH ×2 (08:46→22:26)
[2019-09-22 10:55] LABS: Appearance,Urine Clear (Clear); Bilirubin,Urine Negative (Negative); Blood,Urine Negative (Negative); Color,Urine Light Yellow; Glucose,Urine (UA) Negative (Negative); Ketones,Urine Negative (Negative); Leukocyte Esterase,Urine Negative (Negative); Nitrite,Urine Negative (Negative); PH, Urine 5.5 (5.0-8.0); Protein,Urine Trace (Negative); Specific Gravity,Urine 1.016 (1.001-1.035); Urobilinogen,Urine <2.0 mg/dL (<2.0)
[2019-09-22] MEDS ORDERED: INSULIN ASPART (NovoLOG) 100 UNIT/ML VIAL SQ PRN (11:53)
[2019-09-22] MEDS ORDERED: FUROSEMIDE 20 MG TAB PO PRN (11:53)
[2019-09-22] MEDS ORDERED: POTASSIUM CHLORIDE ER 10 MEQ TAB.ER.PRT PO PRN (11:53)
[2019-09-22] MEDS ORDERED: OLANZapine 2.5 MG TAB PO SCH (12:00)
[2019-09-22] MEDS: DIVALPROEX SPRINKLE 125 MG CAP.SPRINK PO SCH ×3 (13:34→22:24)
[2019-09-22] MEDS: ATORVASTATIN 10 MG TAB PO SCH (13:40)
[2019-09-22] MEDS: BACLOFEN 10 MG TAB PO SCH ×3 (13:40→22:25)
--- NOTE | 2019-09-22 13:53 | P.CN ---
Psychiatric Consult - . Consult date: 09/22/19 Consult:: 09/22/19 13:53 IDENTIFYING DATA: This patient is a 54-year-old male with multiple medical comorbidities and psychiatric illness who is currently lives with his and is unemployed and has 3 kids. HISTORY OF PRESENT ILLNESS: The patient presented to the hospital for complaints of ongoing and worsening anxiety, shakes and nervousness. Patient was last admitted to the hospital in May 2019 and seen by neurology and psychiatry at that time however ended up being transferred to [facility] for further treatment and evaluation and then discharge back home. Psychiatry started patient on Lexapro and Zyprexa and Depakote. Psychiatry was asked once again to evaluate patient for his anxiety. 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 Patient described the ongoing issue with his anxiety and nervousness and states that this has been going on for several months. He states that he feels "severe stress" now due to the fact that his daughter will be getting this week on . He states that he also ran out of medications and couldn't see his primary care physician. He states that she has been also depressed however has been taking his medications. He states that his sleep is "broken up" and sleeps approximately 4-6 hours a night. He states that he was prescribed Xanax by his PCP claims that he was finding that it helped him for approximately 2-3 hours however wore off and needed to take other ones. He states that he has been finding comfort in his family and friends coming over to speak to him. He denied any access to guns or weapons at home. At this time patient denies any suicidal or homical ideations, intent or plan. Patient denies any auditory, visual hallucinations and denies any paranoia or delusions. Patients admits to using cannabis and states that he has a medical marijuana card. He denies any cigarette use or any alcohol use. PAST PSYCHIATRIC HISTORY: Patient states that he has a history of anxiety and depression and states that he was seeing a therapist in the past. He denies any psychiatric hospitalizations in the past. He states that he overdosed on pills about 3 years ago when he was suffering from an opioid dependence issue. Patient is currently on Depakote Lexapro Zyprexa and taking Xanax when necessary. PAST MEDICAL HISTORY: MS, diabetes mellitus, I disorder, GERD, osteoarthritis, seizure disorder, possible history of stroke. ALLERGIES: as per EMR. CHEMICAL DEPENDENCY HISTORY: as per HPI. FAMILY PSYCHIATRIC/SUBSTANCE USE HISTORY: denies SOCIAL HISTORY: He states that he was born and raised in [place] [facility] [place] and claims that he completed high school and did some trade school. 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 He is currently and lives in a house with his and has 3 kids. MENTAL STATUS EXAM: General Appearance: Patient appears to be stated age is alert, directable and appears to be anxious and shaking at times. Attempts to cooperate. Patient appears to have fair hygiene and grooming wearing hospital gown with fair eye contact. Behavior: Patient is calmly lying in bed without any agitated behavior. Appears to be anxious. Directable. Speech: Patient's speech is fluent and nonpressured. Soft tone Mood/Affect: Patient reports their mood is "depressed and anxious", affect is congruent and constricted. Suicidality/Homicidality: Patient denies having any suicidal or homicidal ideation intent or plan. Perceptions: Patient denies any visual hallucinations and denies any auditory hallucinations Though content/process: There is no evidence of any delusional thought content and thought process is linear and goal-directed. Latta. Perseverate on his anxiety. Memory and concentration: AOX3, grossly intact for the purposes of this session. Can spell "WORLD" backwards Judgment and insight: Limited IMPRESSIONS: Mood disorder unspecified, rule out secondary to a general medical condition Anxiety disorder unspecified, Rule out secondary to a general medical condition History of opiate dependence Cannabis use disorder, mild PLAN: -At this time patient DOES NOT meet criteria for inpatient psychiatric admission. -Would recommend the following medication changes/additions: Decreased Zyprexa 2.5 mg every morning + 5 mg daily at bedtime for mood stabilization/depression. We'll discontinue Lexapro at this time and switch patient on to Zoloft 50 mg starting tomorrow for anxiety/mood. Discontinued Ativan and Xanax at this time and will start patient on clonazepam 1 mg twice a day for anxiety. Can continue with Depakote as prescribed. -Continue with medical management and control of seizures. We will await neurology recommendations/consult. -Will continue to follow along. -Please contact with any questions. 09/22/19 14:33 09/22/19 14:41
[2019-09-22] MEDS: clonazePAM 1 MG TAB PO SCH ×2 (16:59→22:26)
[2019-09-22] MEDS: IBUPROFEN 800 MG TAB PO SCH ×2 (16:59→22:25)
[2019-09-22 18:49] LABS: Glucose,Whole Blood 211 mg/dL (75-99)
[2019-09-22] MEDS ORDERED: OLANZapine 10 MG TAB PO SCH (21:00)
[2019-09-22] MEDS ORDERED: OLANZapine 5 MG TAB PO SCH (21:00)
[2019-09-22] MEDS ORDERED: LACOSAMIDE 200 MG PO SCH (21:00)
--- NOTE | 2019-09-22 21:30 | P.CNNES ---
History of Present Illness Consult date: 09/22/19 Requesting physician: Nancy Wilkins Reason for Consult: seizure, history of MS and subtherapeutic Depakote History of Present Illness: This is a 54-year-old gentleman with history of seizure, pseudoseizure as well as multiple sclerosis (for 10 years) and anxiety that presented to the emergency department on 09/22/2019 with complaint of worsening anxiety. His anxiety has been going on since earlier this year. Patient is on Zanaflex. His anxiety issues. He also has history of seizures as well as pseudoseizures for past 3 years and is on VNS for 3 years as well. He is on Vimpat 200 mg twice a day. Patient is on Depakote 500 mg 4 times but since the patient has gastroperesis he was switched from tablet to capsule and was perscribed by his PCP Depakote 125mg capsule (The is not sure the PCP intended to perscribe that dose or he thought patient was already on dose) and per has been on it for 2 weeks. In the ED he had a Depakote level which was 22.8 (normal is between 50-120). The patient does have mild tremor and has not improved on lower dose. Today in the ED the patient describe as a pseudoseizure at 11am, described as raising arm and could not move muslces then blank stare and last for 5 seconds then was tired for 1 minute after episdoe. No urinary/bowel incontinence, no to ngue bite and gaze version. The was told they pseudoseizure from what his neurologist describes. Per his actual seizure are whole body become rigit and would hit himself, lasting for 1-2 minutes, drools, then would make noise, blows air. No urinary or bowel incontinence, no tongue bite or gaze version. He has a seizure on a daily basis and VNS helps with his seizures. Denies fever, cough, night sweats. Patient has history of multiple sclerosis for 20 years and he follows up with a Dr. Sands. Patient recently finished his course of Solu-Medrol for his MS exacerbation. His on Baclofen 20mg QID. He had chronic CSF study that is chronic and one the begning of this year and was told it showed oligoclonal band. He did have MRI Brain and showed active lesion which I don't see MRI Brain. Patient was last seen by neurohospitalist Antonette Wells on 06/10/2023 also mental status and the patient had an EEG has a baseline and was read as normal awake and drowsy EEG. Patient last CT of the head was on 05/05/2019 and was read as age-related atrophic and chronic small vessel ischemic changes without any acute intracranial processes. His last TSH was 1.16 on the 06/11/2019. Past Medical History Past Medical History: Chest Pain / Angina, Diabetes Mellitus, Eye Disorder, GERD/Reflux, Hyperlipidemia, Hypertension, Memory Impairment, Musculoskeletal Disorder, Neurologic Disorder, Osteoarthritis (OA), Pneumonia, Renal Disease, Seizure Disorder, Sleep Apnea/CPAP/BIPAP Additional Past Medical History / Comment(s): MS, several brain lesions, possible progressive brain injury, seizures daily-last seizure 09/21/19, IDDM type II, neuropathy L side body, gastroparesis, chronic cervical and lumbar back pain, spinal stimulator in place, L nephrolithiasis, anemia, insomnis, BLANE- cannot tolerate device, occasional bilateral leg edema-uses lasix prn. History of Any Multi-Drug Resistant Organisms: None Reported Past Surgical History: Back Surgery, Heart Catheterization, Orthopedic Surgery, Tonsillectomy Additional Past Surgical History / Comment(s): VNS unit L chest, spinal stimulator, lumbar fusion/cage, Cspine fusion, L knee arthroscopy, bilateral cataract removals/lens implants Past Anesthesia/Blood Transfusion Reactions: No Reported Reaction Smoking Status: Never smoker - Past Family History Mother Family Medical History: COPD, Hypertension Father Family Medical History: Coronary Artery Disease (CAD), Myocardial Infarction ([place]) Additional Family Medical History / Comment(s): cabg. Father had a Mi at the age of 55 yrs. Heart disease runs strong on father's side of family. Medications and Allergies Home Medications Medication Instructions Recorded Confirmed Type Aspirin 81 mg PO DAILY 11/14/17 09/22/19 History Atorvastatin [Lipitor] 10 mg PO W/LUNCH 02/22/19 09/22/19 History Lacosamide [Vimpat] 200 mg PO BID 02/22/19 09/22/19 History metFORMIN HCL 1,000 mg PO BID 02/22/19 09/22/19 History Ibuprofen [Motrin] 800 mg PO TID 05/18/19 09/22/19 History Lisinopril-Hctz 10-12.5 mg 2 tab PO DAILY 05/18/19 09/22/19 History [Zestoretic 10-12.5] ALPRAZolam [Xanax] 0.5 mg PO TID 06/09/19 09/22/19 History Furosemide [Lasix] 20 mg PO DAILY PRN 06/09/19 09/22/19 History Insulin Lispro [humaLOG Kwikpen] 10 unit SQ DAILY PRN 06/09/19 09/22/19 History Potassium Chloride ER [K-Dur 10] 10 meq PO DAILY PRN 06/09/19 09/22/19 History OLANZapine [ZyPREXA] 5 mg PO DAILY #0 tablet 06/15/19 09/22/19 Rx Baclofen [Lioresal] 20 mg PO QID 09/22/19 09/22/19 History Divalproex Sodium [Depakote 500 mg PO QID 09/22/19 09/22/19 History Sprinkle] Escitalopram Oxalate [Lexapro] 20 mg PO DAILY 09/22/19 09/22/19 History OLANZapine [ZyPREXA] 2.5 mg PO DAILY@1200 09/22/19 09/22/19 History OLANZapine [ZyPREXA] 10 mg PO HS 09/22/19 09/22/19 History Allergies Allergy/AdvReac Type Severity Reaction Status Date / Time Penicillins Allergy Severe Swelling Verified 09/22/19 06:46 prochlorperazine AdvReac Severe Hallucinati Verified 09/22/19 06:46 [From Compazine] ons prochlorperazine edisylate AdvReac Severe Hallucinati Verified 09/22/19 06:46 [From Compazine] ons prochlorperazine maleate AdvReac Severe Hallucinati Verified 09/22/19 06:46 [From Compazine] ons bupropion HCl AdvReac Intermediate Nausea & Verified 09/22/19 06:46 [From Wellbutrin] Vomiting gabapentin [From Neurontin] AdvReac Intermediate Nausea & Verified 09/22/19 06:46 Vomiting amantadine AdvReac Unknown Nausea & Verified 09/22/19 06:46 Vomiting Physical Examination - Vital Signs Vital Signs: Vital Signs Temp Pulse Resp BP BP Pulse Ox 09/22/19 12:00 98.0 F 18 138/76 09/22/19 08:14 98 F 68 19 129/79 96 09/22/19 05:45 98.4 F 83 18 144/77 95 Intake and Output 09/22/19 09/22/19 09/22/19 06:59 14:59 22:59 Other: Weight 98.43 kg 98.43 kg - Additional findings GENERAL: The patient is lying in bed and is not in acute distress. CHEST: The heart rate is regular rate rhythm. No murmurs to auscultation. LUNG: Clear to auscultation bilaterally no wheezing noted throughout. Not labored breathing. ABDOMEN/GI: Bowel sounds present in all 4 quadrants. No tenderness to palpation throughout. NEUROLOGICAL: Higher mental function: The patient is awake, alert, oriented to self, place and time. Patient is following commands. No aphasia and no neglect. Cranial nerves: The pupils are round, equal and reactive to light and accommodation. Visual mckeon are full to confrontation throughout. Extraocular movement is intact no nystagmus is noted. Facial sensation is normal to touch throughout. The facial strength is normal throughout. Hearing is normal bilaterally to hand rub. Tongue is midline and moved [id number] without any difficulty. No dysarthria is noted. Shoulder shrug is normal bilaterally. Motor: The strength is 5 over 5 over the right upper and lower extremity except left upper and lower extremity was 4+ . Normal tone and bulk. Cerebellum: Normal finger to nose. Sensation: Decrease sensation to touch on left upper and lower extremity (per patient and this is chronic). Other sensation is normal to touch on right side. Reflexes (right/left): Biceps 2+/1+; triceps 2+/2+; brachioradialis 2+/2+; patellar 3+/3+; ankles2+/2+. Plantars are downgoing bilaterally. Results - Laboratory Findings CBC and BMP: 09/22/19 06:31 09/22/19 06:31 Abnormal Lab Findings: Abnormal Labs 09/22/19 09/22/19 09/22/19 06:31 06:31 10:37 WBC 12.1 H RBC 3.54 L Hgb 11.2 L Hct 34.4 L Neutrophils # 11.0 H Lymphocytes # 0.3 L BUN 68 H Creatinine 1.89 H Glucose 191 H AST 16 L Urine Protein Trace H - Diagnostic Findings Additional findings: Patient EKG showed normal sinus rhythm with ventricular rate of 70. Showed left ventricular hypertrophy with QRS widening. Liver function test: AST is 16 and ALTs 13. BN over creatinine was 68 over 1.89 while on 08/22/2019 was 49 over 1.3 his baseline creatinine runs between 0.8 and a got as high as 3.09 in May 2019. Assessment and Plan Assessment: This is a 54 right-handed gentleman with history of procedure as well as procedure for the three years who has VNS, also history of multiple sclerosis for last 20, anxiety, chronic lower back pain status post lumbar stimulator who comes to the emergency department because of an anxiety. Today per he had an episode of pseudoseizure but from the description of the seemed more seizure. Patient is receiving subtherapeutic Depakote which is the cause break- thru seizure. Greater than getting 500 mg 4 times a day, he is getting 125 mg 1 tablet 4 times a day. His Depakote level was subtherapeutic and was 22.8. Break-thru seizure is provokes because of subtherapetuic Depakote (patient taking lower dose). Plan: Recommend taking 125mg, 4 tab QID and continue Vimpat 200mg bid. The was notified if the patient has worsening of his mild tremors upper extremity tremors and then to consider switching Depakote to a different antiepileptic medication. Regarding his multiple sclerosis and rest of seizure management, patient will follow up with his outpatient neurologist (Dr. Sands). Regarding the anxiety psychiatry is consulted. Regarding his acute kidney injury patient is getting hydration and will defer to his Primary team.. Thank you for the consult. Time with Patient: Greater than 30
[2019-09-22] MEDS: LACOSAMIDE PO SCH ×2 (21:36)
[2019-09-22 21:37] LABS: Glucose,Whole Blood 154 mg/dL (75-99)
[2019-09-22] MEDS: metFORMIN 500 MG TAB PO SCH (21:37)
--- NOTE | 2019-09-23 00:22 | HP ---
HISTORY AND PHYSICAL SUBJECTIVE: A 54-year-old gentleman came in with history of seizure, pseudoseizures, multiple sclerosis, anxiety presented in the ER complaining of worsening anxiety and found to be severely dehydrated, rehydrated. Severe anxiety issues, medicines at home are not working. He was was admitted with psych and neuro consults. He recently did a 3-day history of Solu-Medrol, which did not improve the patient. He is on Depakote 500 four times a day, Vimpat 200 b.i.d. He is having gastroparesis. He had Depakote level of 22, normal is between 50 and 120. He has got a mild tremor. Await neurology and psych consults. Neurology in the past has told he had a pseudoseizure worsening with anxiety with a blank stare intermittently. No bowel or bladder incontinence noted. . No fever, cough, night sweats. He is on Baclofen 20 q.i.d. Chronic CSF study, which is chronic began showed oligoclonal band. REVIEW OF SYSTEMS: Fourteen-point review of systems negative except for HPI except for the patient cannot live without his . When his is gone, he goes into severe anxiety and panic attacks, but he is okay when family members of their besides his . As mentioned, dependent diabetes mellitus, neuropathy, spinal stimulator, insomnia, anemia, obstructive sleep apnea, chest pain, diabetes mellitus, GERD, dyslipidemia, hypertension, memory impairment, osteoarthritis, renal disease, seizure disorder, sleep apnea. FAMILY HISTORY: Mother with COPD and hypertension. Father with coronary disease. Myocardial infarction. HOME MEDICATIONS: 1. Lipitor 10 daily. 2. Vimpat 200 b.i.d. 3. Metformin 1000 b.i.d. 4. Ibuprofen 800 t.i.d. 5. Aspirin 81 mg daily. 6. Lisinopril hydrochlorothiazide 10/12.5 two daily. 7. Xanax 0.5 t.i.d. 8. Lasix 20 daily. 9. Insulin lispro, Humalog 10 units subcu daily. 10.K-Dur 10 daily. 11.Zyprexa 5 daily. 12.Lioresal 20 q.i.d. 13.Depakote 500 q.i.d. 14.Lexapro 20 daily. 15.Zyprexa 10 mg at night and 2.5 mg daily. ALLERGIES: PENICILLIN, PROCHLORPERAZINE, WELLBUTRIN. PHYSICAL EXAMINATION: Temp 98.4, pulse 80 to 83, respiratory rate 16 to 18, blood pressure 144/77, O2 of 95%. Weight is 98.43 kg. He is sitting up in bed. He appears in no acute distress. HEART: Regular rate and rhythm. LUNGS: Are clear. ABDOMEN: Soft. NEUROLOGIC: Reveals alert and orient x3. He does have some tic type movements. Cerebellum test was negative. He has some apparently some tics with his arms jerking and his face jerking. Reflexes are normal. ASSESSMENT: 1. Worsening anxiety. 2. Multiple sclerosis exacerbation recent, possibly reaction to Solu-Medrol make him more agitated. Wait for neurology and psych consults. 3. Prerenal renal insufficiency and dehydration, given him fluids overnight due to elevated BUN and creatinine. 4. Type 2 diabetes mellitus. Neurology and psych, await for their recommendations. Rehydrate. Acute kidney injury, getting hydration. Apparently Neurology might be changing one medicine 125 mg q.i.d. due to subtherapeutic Depakote. Wait for further recommendations. MMODL / IJN: [id number] /
[2019-09-23 06:45] LABS: Glucose,Whole Blood 110 mg/dL (75-99)
[2019-09-23] MEDS: LACOSAMIDE PO SCH ×2 (08:00)
[2019-09-23] MEDS: IBUPROFEN 800 MG TAB PO SCH (08:01)
[2019-09-23] MEDS: clonazePAM 1 MG TAB PO SCH (08:01)
[2019-09-23] MEDS: BACLOFEN 10 MG TAB PO SCH ×2 (08:01→12:31)
[2019-09-23] MEDS: metFORMIN 500 MG TAB PO SCH (08:01)
[2019-09-23] MEDS: DIVALPROEX SPRINKLE 125 MG CAP.SPRINK PO SCH ×2 (08:04→12:31)
[2019-09-23 08:20] VITALS: BP 147/74; PULSE 70; RESP 16; TEMP 97.6
[2019-09-23] MEDS ORDERED: LISINOPRIL-HCTZ 10-12.5 MG 1 EACH TAB PO SCH (09:00)
[2019-09-23] MEDS ORDERED: OLANZapine 5 MG TAB PO SCH (09:00)
[2019-09-23] MEDS ORDERED: SERTRALINE 50 MG TAB PO SCH (09:00)
[2019-09-23] MEDS ORDERED: ESCITALOPRAM 20 MG TAB PO SCH (09:00)
[2019-09-23] MEDS ORDERED: ASPIRIN 81 MG PO SCH (09:00)
[2019-09-23] MEDS ORDERED: OLANZapine 2.5 MG TAB PO SCH (09:00)
[2019-09-23 11:52] LABS: Glucose,Whole Blood 93 mg/dL (75-99)
[2019-09-23] MEDS: SODIUM CHLORIDE 0.9% 1,000 ML IV SCH (12:30)
[2019-09-23] MEDS: ATORVASTATIN 10 MG TAB PO SCH (12:31)
[2019-09-23] MEDS ORDERED: clonazePAM 1 MG TAB PO SCH (12:45)
--- NOTE | 2019-09-23 13:10 | P.PN ---
Progress Note - Text Progress Note Date: 09/23/19 Interval History: Patient was seen today for psychiatric follow-up regarding his depression and anxiety. Patient was started on Klonopin and Zoloft yesterday along with his Zyprexa. Patient's nurse was seen prior to encounter who states that patient has been improving with regards to his anxiety however continues to have some anxiety during the day mainly. Patient was seen with his at the bedside and patient claims that his anxiety has improved mildly since yesterday and claims that he was able to sleep fairly last night. He states that his mood is "fine today" and denied any depressive symptoms. He claims that he has been tolerating the medications well. Patient's asked several questions about his medications and patient's behavior which were addressed at the bedside. Patient claims that he is feeling optimistic about his daughter getting over the weekend and wants to be home for it. He appeared to be calmly about to eat his lunch and states that his appetite is fair. At this time patient denies any suicidal or homical ideations, intent or plan. Patient denies any auditory, visual hallucinations and denies any paranoia or delusions. Patient denies any side effects from the medications and has been compliant with meds. Mental Status Exam: General Appearance: Patient appears to be stated age is alert, directable and appears to be calmer and more cooperative today. Patient appears to have fair hygiene and grooming wearing hospital gown with fair eye contact. Behavior: Patient is calmly lying in bed without any agitated behavior. Appears to be less anxious today and more cooperative. Speech: Patient's speech is fluent and nonpressured. Soft tone Mood/Affect: Patient reports their mood is "better", affect is congruent and constricted. Suicidality/Homicidality: Patient denies having any suicidal or homicidal ideation intent or plan. Perceptions: Patient denies any visual hallucinations and denies any auditory hallucinations Though content/process: There is no evidence of any delusional thought content and thought process is linear and goal-directed. [place]. Memory and concentration: AOX3, grossly intact for the purposes of this session Judgment and insight: Limited, improving mildly Assessment Mood disorder unspecified, rule out secondary to a general medical condition Anxiety disorder unspecified, Rule out secondary to a general medical condition History of opiate dependence Cannabis use disorder, mild Plan: -At this time patient DOES NOT meet criteria for inpatient psychiatric admission. -Would recommend the following medication changes/additions: Continue with Zyprexa 2.5 mg every morning + 5 mg daily at bedtime for mood stabilization/depression. We'll increase Zoloft 100 mg starting tomorrow for anxiety/mood. Increased clonazepam 1 mg TID a day for anxiety. Can continue with Depakote as prescribed. Spoke with patient and his at the bedside in depth about his medications and also his Xanax and described the risks of tolerance and potential abuse with that medication. -Continue with medical management and control of seizures. Appreciate neurology recommendations. -Will sign off at this time. -Please contact with any questions.
[2019-09-24] MEDS ORDERED: SERTRALINE 100 MG TAB PO SCH (09:00)
--- NOTE | 2019-09-24 10:36 | P.DS ---
Providers Date of admission: 09/22/19 07:41 Expected date of discharge: 09/23/19 Attending physician: Bruce Khan Consults: 09/22/19 11:55 Consult Physician Routine Consulting Provider: José Antonio Gray Consult Reason/Comments: anxiety Do you want consulting provider notified?: Yes 09/22/19 11:56 Consult Physician Routine Consulting Provider: Beba Mir Consult Reason/Comments: ms Do you want consulting provider notified?: Yes 09/22/19 12:01 Consult Physician Urgent Consulting Provider: Reno Blake Consult Reason/Comments: sub theraputic valporic acid levels and tremors Do you want consulting provider notified?: Yes Primary care physician: [facility] Hospital Course: Final Diagnoses: Acute altered mental status accompanied by agitation, acute metabolic encephalopathy,in a patient with history of MS ,epilepsy and VNS Recent MS exacerbation Breakthrough Epileptic and nonepileptic seizure secondary to subtherapeutic Depakote , Depakote increased. Mood disorder unspecified Anxiety disorder unspecified Depression Dehydration secondary to poor oral intake Acute renal failure, prerenal secondary to the above, improved with IV fluid hydration. Cannabis use Chronic Anemia Restless leg syndrome secondary to the above Hospital course:This is a 54-year-old gentleman admitted with altered mental status, seizures, pseudoseizures, worsening anxiety , recent multiple sclerosis exacerbation multiple other medical issues. Evaluated by both psychiatry and neurology with recommendations noted and appreciated. Medications adjusted as per neurology and psychiatry. Significant clinical improvement. Patient has been cleared by all consults for discharge. Patient is being discharged home in a stable condition with guarded prognosis. Please refer to consults/EMR for further details. Patient recommended to follow-up with his outpatient neurologist Dr. Sands. Regarding the anxiety psychiatry is consulted. The impression and plan of care has been dictated as directed. DrYulissa: I performed a history and examination of this patient, discussed the same with the dictator. I agree with the dictator's note ,documented as a scribe. Any additional findings or plans will be noted. Patient Condition at Discharge: Stable Plan - Discharge Summary Discharge Rx Participant: No New Discharge Prescriptions: New Sertraline HCl [Zoloft] 100 mg PO DAILY #30 tab clonazePAM [KlonoPIN] 1 mg PO TID 3 Days #9 tab Continue Aspirin 81 mg PO DAILY metFORMIN HCL 1,000 mg PO BID Atorvastatin [Lipitor] 10 mg PO W/LUNCH Lacosamide [Vimpat] 200 mg PO BID Lisinopril-Hctz 10-12.5 mg [Zestoretic 10-12.5] 2 tab PO DAILY Ibuprofen [Motrin] 800 mg PO TID Potassium Chloride ER [K-Dur 10] 10 meq PO DAILY PRN PRN Reason: Edema Furosemide [Lasix] 20 mg PO DAILY PRN PRN Reason: Edema Insulin Lispro [humaLOG Kwikpen] 10 unit SQ DAILY PRN PRN Reason: HIGH BLOOD SUGAR Baclofen [Lioresal] 20 mg PO QID Divalproex Sodium [Depakote Sprinkle] 500 mg PO QID Changed OLANZapine [ZyPREXA] 5 mg PO HS #0 tablet OLANZapine [ZyPREXA] 2.5 mg PO DAILY #0 Discontinued ALPRAZolam [Xanax] 0.5 mg PO TID Escitalopram Oxalate [Lexapro] 20 mg PO DAILY OLANZapine [ZyPREXA] 10 mg PO HS Discharge Medication List Aspirin 81 mg PO DAILY 11/14/17 [History] Atorvastatin [Lipitor] 10 mg PO W/LUNCH 02/22/19 [History] Lacosamide [Vimpat] 200 mg PO BID 02/22/19 [History] metFORMIN HCL 1,000 mg PO BID 02/22/19 [History] Ibuprofen [Motrin] 800 mg PO TID 05/18/19 [History] Lisinopril-Hctz 10-12.5 mg [Zestoretic 10-12.5] 2 tab PO DAILY 05/18/19 [History] Furosemide [Lasix] 20 mg PO DAILY PRN 06/09/19 [History] Insulin Lispro [humaLOG Kwikpen] 10 unit SQ DAILY PRN 06/09/19 [History] Potassium Chloride ER [K-Dur 10] 10 meq PO DAILY PRN 06/09/19 [History] Baclofen [Lioresal] 20 mg PO QID 09/22/19 [History] Divalproex Sodium [Depakote Sprinkle] 500 mg PO QID 09/22/19 [History] OLANZapine [ZyPREXA] 2.5 mg PO DAILY #0 09/23/19 [Rx] OLANZapine [ZyPREXA] 5 mg PO HS #0 tablet 09/23/19 [Rx] Sertraline HCl [Zoloft] 100 mg PO DAILY #30 tab 09/23/19 [Rx] clonazePAM [KlonoPIN] 1 mg PO TID 3 Days #9 tab 09/23/19 [Rx] Follow up Appointment(s)/Referral(s): Dr. Shavon Neurologist(pt's own) [Other] - 1 Week Bruce Khan MD [Primary Care Provider] - 3 Days Patient Instructions/Handouts: Generalized Anxiety Disorder (ED)
== END 2019-09-23 14:16 ==
LOC: EC 05:43 → 1SOBS 07:41
PROVIDERS: ADMIT Family Medicine; ATTEND Family Medicine
DX: R41.82 Altered mental status, unspecified (principal); R45.1 Restlessness and agitation; G93.41 Metabolic encephalopathy; G35 Multiple sclerosis; G40.909 Epilepsy, unspecified, not intractable, without status epilepticus; R89.2 Abnormal level of other drugs, medicaments and biological substances in specimens from other organs, systems and tissues; F41.9 Anxiety disorder, unspecified; F32.9 Major depressive disorder, single episode, unspecified; E86.0 Dehydration; N17.9 Acute kidney failure, unspecified; F12.90 Cannabis use, unspecified, uncomplicated; D64.9 Anemia, unspecified; G25.81 Restless legs syndrome; K21.9 Gastro-esophageal reflux disease without esophagitis; R41.3 Other amnesia; M19.90 Unspecified osteoarthritis, unspecified site; E11.43 Type 2 diabetes mellitus with diabetic autonomic (poly)neuropathy; K31.84 Gastroparesis; G47.00 Insomnia, unspecified; G47.33 Obstructive sleep apnea (adult) (pediatric); E78.5 Hyperlipidemia, unspecified; I10 Essential (primary) hypertension; E11.40 Type 2 diabetes mellitus with diabetic neuropathy, unspecified; F39 Unspecified mood [affective] disorder; G89.29 Other chronic pain; M54.2 Cervicalgia; M54.5 Low back pain; F11.21 Opioid dependence, in remission; Z03.818 Encounter for observation for suspected exposure to other biological agents ruled out; Z96.82 Presence of neurostimulator; Z79.82 Long term (current) use of aspirin; Z79.899 Other long term (current) drug therapy; Z79.1 Long term (current) use of non-steroidal anti-inflammatories (NSAID); Z79.4 Long term (current) use of insulin; Z88.0 Allergy status to penicillin; Z88.8 Allergy status to other drugs, medicaments and biological substances; Z87.442 Personal history of urinary calculi; Z98.890 Other specified postprocedural states; Z90.89 Acquired absence of other organs; Z87.01 Personal history of pneumonia (recurrent); Z98.1 Arthrodesis status; Z98.41 Cataract extraction status, right eye; Z98.42 Cataract extraction status, left eye; Z96.1 Presence of intraocular lens; Z82.5 Family history of asthma and other chronic lower respiratory diseases; Z82.49 Family history of ischemic heart disease and other diseases of the circulatory system
CPT/HCPCS: 96361 ×3; 96375; 96376; 96374; 99284; 36415; 93005; 80164; 80053; 83735; 85025; 81003; G0378 ×2; U0003; J2060; J2405

== ENCOUNTER → 2020-03-02 | Outpatient (CLI) | payer BC ==
[2020-03-02 11:32] LABS: Basophils # (A) 0.1 k/uL (0-0.2); Basophils % (A) 1 %; Eosinophils # (A) 0.2 k/uL (0-0.7); Eosinophils % (A) 4 %; HCT 37.8 % (39.0-53.0); HGB 12.4 gm/dL (13.0-17.5); Lymphocytes # (A) 0.9 k/uL (1.0-4.8); Lymphocytes % (A) 15 %; MCH 31.6 pg (25.0-35.0); MCHC 32.8 g/dL (31.0-37.0); MCV 96.3 fL (80.0-100.0); Mean Platelet Volume 7.4; Monocytes # (A) 0.5 k/uL (0-1.0); Monocytes % (A) 8 %; Neutrophils # (A) 4.2 k/uL (1.3-7.7); Neutrophils % (A) 71 %; Platelet Count 189 k/uL (150-450); RBC 3.93 m/uL (4.30-5.90); RDW 12.9 % (11.5-15.5)
[2020-03-02 17:09] LABS: African American GFR (CKD) 61.2 (60.0-200.0); Albumin 4.7 g/dL (3.80-4.90); Albumin/Globulin Ratio 2.61 (1.60-3.17); Anion Gap 8.3 mmol/L (4.00-12.00); Calcium 9.4 mg/dL (8.7-10.3); Carbon Dioxide 27.7 mmol/L (21.6-31.8); Globulin 1.8 g/dL (1.6-3.3); Non-African American GFR(CKD) 52.8 (60.0-200.0); Potassium 4.9 mmol/L (3.5-5.5); Total Bilirubin 0.3 mg/dL (0.2-1.2); Total Protein 6.5 g/dL (6.2-8.2)
[2020-03-02 17:25] LABS: Folate, Serum 17.8 ng/mL; T4, Free (Free Thyroxine) 0.7 ng/dL (0.80-1.80)
[2020-03-02 19:32] LABS: Hepatitis B Core IgM Non-Reactive (Non-Reactive); Hepatitis B Surface AB- Quant 3.5 mIU/mL; Hepatitis B Surface Antibody Non-Reactive (Non-Reactive); Hepatitis B Surface Antigen Non-Reactive (Non-Reactive)
[2020-03-02 21:40] LABS: Hemoglobin A1C 5.8 % (4.0-6.0)
[2020-03-03 00:53] LABS: HIV 2 AB Non-Reactive (Non-Reactive); HIV AB P24 Non-Reactive (Non-Reactive); HIV P24 AG Non-Reactive (Non-Reactive)
[2020-03-03 16:22] LABS: V. zoster Source Blood - Plasma
[2020-03-04 06:30] LABS: Vit B1(Thiamine) 95 ug/L (38-122)
== END | disposition home or self-care (01) ==
LOC: LABWHC1 10:30
PROVIDERS: ATTEND Psychiatry & Neurology Pain Medicine
DX: G35 Multiple sclerosis (principal); Z51.81 Encounter for therapeutic drug level monitoring; Z79.899 Other long term (current) drug therapy
CPT/HCPCS: 36415; 80053; 82306; 82607; 82746; 83036; 84207; 84425; 84439; 84443; 84481; 84591; 85025; 86704; 86705; 86706; 87340; 87390; 87798

== ENCOUNTER → 2020-05-11 | Outpatient (CLI) | payer BC ==
[2020-05-11 23:39] LABS: Valproic Acid (Depakene) 73.2 ug/mL (50.0-100.0)
[2020-05-12 01:08] LABS: African American GFR (CKD) 80.1 (60.0-200.0); Albumin 4.4 g/dL (3.80-4.90); Albumin/Globulin Ratio 1.69 (1.60-3.17); Anion Gap 19.5 mmol/L (4.00-12.00); BUN/Creat Ratio 29.17 Ratio (12.00-20.00); Calcium 9.8 mg/dL (8.7-10.3); Carbon Dioxide 21.5 mmol/L (21.6-31.8); Globulin 2.6 g/dL (1.6-3.3); Non-African American GFR(CKD) 69.1 (60.0-200.0); Potassium 4.1 mmol/L (3.5-5.5); Total Bilirubin 0.4 mg/dL (0.3-1.2)
== END | disposition home or self-care (01) ==
LOC: LABWHC1 11:53
PROVIDERS: ATTEND Psychiatry & Neurology Pain Medicine
DX: Z51.81 Encounter for therapeutic drug level monitoring (principal)
CPT/HCPCS: 36415; 80053; 80164

== ENCOUNTER 2020-11-04 08:36 | Inpatient (IN) | payer BC, MEDICARE ==
[2020-11-04] MEDS ORDERED: SODIUM CHLORIDE 0.9% 1,000 ML IV ONE ×3 (08:57→11:37)
[2020-11-04] MEDS ORDERED: LORazepam 2 MG/ML INJ IV STA ×2 (08:57→13:50)
--- NOTE | 2020-11-04 09:22 | ED ---
General Adult HPI - General Chief complaint: Altered Mental Status Stated complaint: Confusion/Panic Attacks/Falls Time Seen by Provider: 11/04/20 08:40 Source: family, RN notes reviewed, old records reviewed Mode of arrival: ambulatory Limitations: no limitations - History of Present Illness Initial comments: This a 55-year-old male who presents emergency Department with a past medical history significant for seizures unless gastroparesis. Patient is on multiple medications. According to the said episodes where he becomes altered and almost in a manic phase where he can't sit still he gets up and sits down it gets up and sits down and is also confused. states this started before COVID and had these episodes in the past but no one has been able to figure out what is going on. states that this started again in the last few days and is getting worse and just is so altered and anxious that he cannot function and follow even simple commands on occasion. Patient himself denies any significant pain. Patient denies chest pain or difficulty breathing. Patient denies fever chills or cough. states he does vomit on a regular basis secondary to gastroparesis and that is not any more increased than normal. Patient denies any diarrhea. Patient has any recent injury or trauma. - Related Data Home Medications Medication Instructions Recorded Confirmed Aspirin 81 mg PO DAILY 11/14/17 11/04/20 Atorvastatin [Lipitor] 10 mg PO W/LUNCH 02/22/19 11/04/20 Lacosamide [Vimpat] 200 mg PO BID 02/22/19 11/04/20 metFORMIN HCL [Glucophage] 1,000 mg PO BID 02/22/19 11/04/20 Ibuprofen [Motrin] 800 mg PO TID 05/18/19 11/04/20 Lisinopril-Hctz 10-12.5 mg 2 tab PO DAILY 05/18/19 11/04/20 [Zestoretic 10-12.5] Furosemide [Lasix] 20 mg PO DAILY PRN 06/09/19 11/04/20 Baclofen [Lioresal] 20 mg PO QID 09/22/19 11/04/20 Divalproex ER [Depakote ER] 500 mg PO QID 11/04/20 11/04/20 Meclizine [Antivert] 12.5 mg PO TID PRN 11/04/20 11/04/20 Propranolol [Inderal] 40 mg PO BID 11/04/20 11/04/20 clonazePAM [KlonoPIN] 0.5 mg PO BID 11/04/20 11/04/20 Previous Rx's Medication Instructions Recorded OLANZapine [ZyPREXA] 2.5 mg PO DAILY #0 09/23/19 OLANZapine [ZyPREXA] 5 mg PO HS #0 tablet 09/23/19 Sertraline HCl [Zoloft] 100 mg PO DAILY #30 tab 09/23/19 Allergies Allergy/AdvReac Type Severity Reaction Status Date / Time Penicillins Allergy Severe Swelling Verified 11/04/20 10:18 prochlorperazine AdvReac Severe Hallucinati Verified 11/04/20 10:18 [From Compazine] ons prochlorperazine edisylate AdvReac Severe Hallucinati Verified 11/04/20 10:18 [From Compazine] ons prochlorperazine maleate AdvReac Severe Hallucinati Verified 11/04/20 10:18 [From Compazine] ons bupropion HCl AdvReac Intermediate Nausea & Verified 11/04/20 10:18 [From Wellbutrin] Vomiting gabapentin [From Neurontin] AdvReac Intermediate Nausea & Verified 11/04/20 10:18 Vomiting amantadine AdvReac Unknown Nausea & Verified 11/04/20 10:18 Vomiting Review of Systems ROS Statement: Those systems with pertinent positive or pertinent negative responses have been documented in the HPI. ROS Other: All systems not noted in ROS Statement are negative. Past Medical History Past Medical History: Chest Pain / Angina, Diabetes Mellitus, Eye Disorder, GERD/Reflux, Hyperlipidemia, Hypertension, Memory Impairment, Musculoskeletal Disorder, Neurologic Disorder, Osteoarthritis (OA), Pneumonia, Renal Disease, Seizure Disorder, Sleep Apnea/CPAP/BIPAP Additional Past Medical History / Comment(s): MS, several brain lesions, possible progressive brain injury, seizures daily-last seizure 09/21/19, IDDM type II, neuropathy L side body, gastroparesis, chronic cervical and lumbar back pain, spinal stimulator in place, L nephrolithiasis, anemia, insomnis, BLANE-john ot tolerate device, occasional bilateral leg edema-uses lasix prn. History of Any Multi-Drug Resistant Organisms: None Reported Past Surgical History: Back Surgery, Heart Catheterization, Orthopedic Surgery, Tonsillectomy Additional Past Surgical History / Comment(s): VNS unit L chest, spinal stimulator, lumbar fusion/cage, Cspine fusion, L knee arthroscopy, bilateral cataract removals/lens implants Past Anesthesia/Blood Transfusion Reactions: No Reported Reaction Past Psychological History: Anxiety, Depression Smoking Status: Vaper Past Alcohol Use History: Occasional Past Drug Use History: Marijuana - Past Family History Mother Family Medical History: COPD, Hypertension Father Family Medical History: Coronary Artery Disease (CAD), Myocardial Infarction (ND) Additional Family Medical History / Comment(s): cabg. Father had a Mi at the age of 55 yrs. Heart disease runs strong on father's side of family. General Exam - General Exam Comments Initial Comments: GENERAL: Patient is well-developed and well-nourished. Patient is nontoxic and well- hydrated and is in mild distress. ENT: Neck is soft and supple. No significant lymphadenopathy is noted. Oropharynx is clear. Moist mucous membranes. Neck has full range of motion without eliciting any pain. EYES: The sclera were anicteric and conjunctiva were pink and moist. Extraocular movements were intact and pupils were equal round and reactive to light. Eyelids were unremarkable. PULMONARY: Unlabored respirations. Good breath sounds bilaterally. No audible rales rhonchi or wheezing was noted. CARDIOVASCULAR: There is a regular rate and rhythm without any murmurs gallops or rubs. ABDOMEN: Soft and nontender with normal bowel sounds. SKIN: Skin is clear with no lesions or rashes and otherwise unremarkable. NEUROLOGIC: Patient is alert and oriented x3. Cranial nerves II through XII are grossly intact. Motor and sensory are also intact. Normal speech, volume and content. Symmetrical smile. He is extremely agitated and cannot sit still in the bed he keeps sitting up and laying back and sitting up his feet MUSCULOSKELETAL: Normal extremities with adequate strength and full range of motion. No lower extremity swelling or edema. No calf tenderness. LYMPHATICS: No significant lymphadenopathy is noted PSYCHIATRIC: Difficult to assess secondary to his condition Limitations: no limitations Course Vital Signs 11/04/20 11/04/20 11/04/20 08:39 09:44 10:07 Temperature 97.3 F L Pulse Rate 71 68 68 Respiratory 22 18 18 Rate Blood Pressure 147/40 O2 Sat by Pulse 96 98 98 Oximetry Medical Decision Making - Medical Decision Making EKG shows sinus bradycardia 56 bpm NC interval is 214 QRS is 126 QT interval 370 QTC is 364. Patient's EKG shows no ST segment elevation or depression. Chest x-ray showed no acute abnormality. Patient was getting agitated he had 1 of Ativan IV which decreased his agitation. I spoke with Dr. hKan he agreed to admit the patient admitted the patient I consult the GI neuro and psych any but the patient on 100 mL per hour of normal saline. - Lab Data Result diagrams: 11/04/20 09:20 11/04/20 09:36 Lab Results 11/04/20 11/04/20 11/04/20 Range/Units 09:20 09:20 09:30 WBC 6.2 (3.8-10.6) k/uL RBC 3.55 L (4.30-5.90) m/uL Hgb 11.7 L (13.0-17.5) gm/dL Hct 35.5 L (39.0-53.0) % MCV 100.0 (80.0-100.0) fL MCH 33.0 (25.0-35.0) pg MCHC 33.0 (31.0-37.0) g/dL RDW 13.7 (11.5-15.5) % Plt Count 189 (150-450) k/uL MPV 8.2 Neutrophils % 81 % Lymphocytes % 3 % Monocytes % 14 % Eosinophils % 1 % Basophils % 0 % Neutrophils # 5.0 (1.3-7.7) k/uL Lymphocytes # 0.2 L (1.0-4.8) k/uL Monocytes # 0.9 (0-1.0) k/uL Eosinophils # 0.1 (0-0.7) k/uL Basophils # 0.0 (0-0.2) k/uL Macrocytosis Slight PT 11.3 (9.0-12.0) sec INR 1.1 (<1.2) APTT 22.0 (22.0-30.0) sec Sodium (137-145) mmol/L Potassium (3.5-5.1) mmol/L Chloride (98-107) mmol/L Carbon Dioxide (22-30) mmol/L Anion Gap mmol/L BUN (9-20) mg/dL Creatinine (0.66-1.25) mg/dL Est GFR (CKD-EPI)AfAm (>60 ml/min/1.73 sqM) Est GFR (CKD-EPI)NonAf (>60 ml/min/1.73 sqM) Glucose (74-99) mg/dL POC Glucose (mg/dL) 182 H (75-99) mg/dL POC Glu [employer] Yaz Phelps Calcium (8.4-10.2) mg/dL Total Bilirubin (0.2-1.3) mg/dL AST (17-59) U/L ALT (4-49) U/L Alkaline Phosphatase (38-126) U/L Ammonia (<30) umol/L Troponin I (0.000-0.034) ng/mL Total Protein (6.3-8.2) g/dL Albumin (3.5-5.0) g/dL Valproic Acid ug/mL Serum Alcohol mg/dL 11/04/20 11/04/20 11/04/20 Range/Units 09:36 09:36 09:36 WBC (3.8-10.6) k/uL RBC (4.30-5.90) m/uL Hgb (13.0-17.5) gm/dL Hct (39.0-53.0) % MCV (80.0-100.0) fL MCH (25.0-35.0) pg MCHC (31.0-37.0) g/dL RDW (11.5-15.5) % Plt Count (150-450) k/uL MPV Neutrophils % % Lymphocytes % % Monocytes % % Eosinophils % % Basophils % % Neutrophils # (1.3-7.7) k/uL Lymphocytes # (1.0-4.8) k/uL Monocytes # (0-1.0) k/uL Eosinophils # (0-0.7) k/uL Basophils # (0-0.2) k/uL Macrocytosis PT (9.0-12.0) sec INR (<1.2) APTT (22.0-30.0) sec Sodium 145 (137-145) mmol/L Potassium 4.1 (3.5-5.1) mmol/L Chloride 111 H (98-107) mmol/L Carbon Dioxide 20 L (22-30) mmol/L Anion Gap 14 mmol/L BUN 79 H (9-20) mg/dL Creatinine 2.43 H (0.66-1.25) mg/dL Est GFR (CKD-EPI)AfAm 34 (>60 ml/min/1.73 sqM) Est GFR (CKD-EPI)NonAf 29 (>60 ml/min/1.73 sqM) Glucose 174 H (74-99) mg/dL POC Glucose (mg/dL) (75-99) mg/dL POC Glu [employer] Calcium 9.8 (8.4-10.2) mg/dL Total Bilirubin 0.4 (0.2-1.3) mg/dL AST 21 (17-59) U/L ALT 13 (4-49) U/L Alkaline Phosphatase 61 (38-126) U/L Ammonia 47 H (<30) umol/L Troponin I <0.012 (0.000-0.034) ng/mL Total Protein 6.7 (6.3-8.2) g/dL Albumin 4.3 (3.5-5.0) g/dL Valproic Acid 81.4 ug/mL Serum Alcohol <10 mg/dL Disposition Clinical Impression: Altered mental status, Acute kidney failure, Hyperammonemia, Agitation Disposition: ADMITTED IP TO THIS HOSP Referrals: Bruce Khan MD [Primary Care Provider] - 1-2 days
[2020-11-04 09:34] LABS: Glucose,Whole Blood 182 mg/dL (75-99)
[2020-11-04 09:40] LABS: Basophils % (A) 0 %; Eosinophils # (A) 0.1 k/uL (0-0.7); Eosinophils % (A) 1 %; HCT 35.5 % (39.0-53.0); HGB 11.7 gm/dL (13.0-17.5); Lymphocytes # (A) 0.2 k/uL (1.0-4.8); Lymphocytes % (A) 3 %; Macrocytosis Slight; Mean Platelet Volume 8.2; Monocytes # (A) 0.9 k/uL (0-1.0); Monocytes % (A) 14 %; Neutrophils % (A) 81 %; Platelet Count 189 k/uL (150-450); RBC 3.55 m/uL (4.30-5.90); RDW 13.7 % (11.5-15.5); WBC 6.2 k/uL (3.8-10.6)
[2020-11-04 10:02] LABS: INR 1.1 (<1.2); Prothrombin Time 11.3 sec (9.0-12.0)
--- NOTE | 2020-11-04 10:03 | XR ---
EXAMINATION TYPE: XR chest 1V portable DATE OF EXAM: 11/04/2020 Comparison: 05/05/2019 Clinical History: 55-year-old male confusion, altered mental status Findings: Left anterior chest wall generator device with leads extending to the left base of the neck. Spinal s timulator array centered along the mid thoracic spinal canal. Heart is unenlarged. Some strandy atele ctasis of the lung bases. Lung volumes diminished with crowding of vascular markings. Impression: Cardiomegaly. Strandy bibasilar atelectasis. Hypoventilatory changes.
[2020-11-04 10:05] LABS: ALT 13 U/L (4-49); AST 21 U/L (17-59); African American GFR (CKD) 34 (>60 ml/min/1.73 sqM); Albumin 4.3 g/dL (3.5-5.0); Alcohol <10 mg/dL; Alkaline Phosphatase 61 U/L (38-126); Anion Gap 14 mmol/L; Blood Urea Nitrogen 79 mg/dL (9-20); Calcium 9.8 mg/dL (8.4-10.2); Carbon Dioxide 20 mmol/L (22-30); Chloride 111 mmol/L (98-107); Glucose 174 mg/dL (74-99); Non-African American GFR(CKD) 29 (>60 ml/min/1.73 sqM); Potassium 4.1 mmol/L (3.5-5.1); Sodium 145 mmol/L (137-145); Total Bilirubin 0.4 mg/dL (0.2-1.3); Total Protein 6.7 g/dL (6.3-8.2)
[2020-11-04 10:19] LABS: Valproic Acid (Depakene) 81.4 ug/mL
--- NOTE | 2020-11-04 13:48 | P.CN ---
Psychiatric Consult - . Consult date: 11/04/20 Consult:: 11/04/20 13:47 IDENTIFYING DATA: This patient is a 55-year-old, , male who presented to the emergency department for altered mental status. HISTORY OF PRESENT ILLNESS: The patient presented to the hospital on 11/04/2020, brought in to the emergency department by his for altered mental status and "manic-like episodes." The patient was reportedly very confused and constantly pacing. He is also described as very anxious and always in a panic. Present at the patient's bedside as the patient's . Currently, the patient is unable to provide any history as his somnolent and unable to be woken up by this p rovider. Much of the history was provided by the patient's at bedside. Patient's reports that the patient has been having issues ever since February 2019. She describes that the patient the first presented with a significant change in his mood and was mostly more hypersexual and more irritable. In April 2019, she describes the mood then changed to more of a generalized panic and increased confusion. The patient follows with Dr. Chang in the outpatient setting for a history of seizures, Multiple sclerosis, and pseudoseizures. Review the patient's medications severe that he is on Vimpat 200 mg twice a day, Depakote 500 mg 4 times a day, Zyprexa 5 mg in the morning and 10 oh grams at bedtime, Zoloft 100 mg daily, and Klonopin 0.5 mg by mouth twice a day. Patient's expresses frustration as the patient continues to display these panic-like behaviors that have not abated despite multiple visits to this hospital and to [facility]. The patient's states that he most recently had a flareup of his multiple sclerosis and required steroid treatment 2 weeks ago. On presentation emergency department, the patient is noted to have elevated ammonia at 47(H). Valproic acid WNL. The patient reportedly received 1 mg of IV Ativan and has been somnolent since. The patient's reports that this is the first time the patient has slept in weeks. PAST PSYCHIATRIC HISTORY: Patient has a history of anxiety, depression, and dependence. The patient has had. Dominik medications including Depakote, Lexapro, Zyprexa, Xanax, Zoloft. Patient denies any psychiatric outpatient follow-up. The patient reportedly had an attempted suicide 3 years ago when he was coming off opiates. PAST MEDICAL HISTORY: Past Medical History: Chest Pain / Angina, Diabetes Mellitus, Eye Disorder, GERD/Reflux, Hyperlipidemia, Hypertension, Memory Impairment, Musculoskeletal Disorder, Neurologic Disorder, Osteoarthritis (OA), Pneumonia, Renal Disease, Seizure Disorder, Sleep Apnea/CPAP/BIPAP Additional Past Medical History / Comment(s): MS, several brain lesions, possible progressive brain injury, seizures daily-last seizure 09/21/19, IDDM type II, neuropathy L side body, gastroparesis, chronic cervical and lumbar back pain, spinal stimulator in place, L nephrolithiasis, anemia, insomnis, BLANE- cannot tolerate device, occasional bilateral leg edema-uses lasix prn. History of Any Multi-Drug Resistant Organisms: None Reported Past Surgical History: Back Surgery, Heart Catheterization, Orthopedic Surgery, Tonsillectomy Additional Past Surgical History / Comment(s): VNS unit L chest, spinal stimulator, lumbar fusion/cage, Cspine fusion, L knee arthroscopy, bilateral cataract removals/lens implants Past Anesthesia/Blood Transfusion Reactions: No Reported Reaction Past Psychological History: Anxiety, Depression Smoking Status: Vaper Past Alcohol Use History: Occasional Past Drug Use History: Marijuana ALLERGIES: as per EMR. CHEMICAL DEPENDENCY HISTORY: as per HPI. FAMILY PSYCHIATRIC/SUBSTANCE USE HISTORY: Denies SOCIAL HISTORY: Patient was born and raised in [place], [place]. Patient graduated high school. He is currently . He is currently unemployed. Helena medina lives with his and has 3 children. MENTAL STATUS EXAM: General Appearance: Patient appears to be stated age is somnolent and unarousable. Patient appears to have fair hygiene and grooming wearing hospital gown with fair eye contact. Behavior: Patient is calmly lying in bed without any agitated behavior. Speech: Unable to assess. Mood/Affect: Unable to assess. Suicidality/Homicidality: Unable to assess. Perceptions: Unable to assess. Though content/process: Unable to assess. Memory and concentration: Unable to assess. Judgment and insight: Unable to assess. Vital Signs Temp 97.3 F L 11/04/20 08:39 Pulse 55 L 11/04/20 12:00 Resp 18 11/04/20 12:00 BP 96/56 11/04/20 12:00 Pulse Ox 98 11/04/20 12:00 Intake & Output 11/03/20 11/04/20 11/04/20 18:59 06:59 18:59 Weight 107.955 kg Laboratory Results WBC 6.2 k/uL (3.8-10.6) 11/04/20 09:20 RBC 3.55 m/uL (4.30-5.90) L 11/04/20 09:20 Hgb 11.7 gm/dL (13.0-17.5) L 11/04/20 09:20 Hct 35.5 % (39.0-53.0) L 11/04/20 09:20 MCV 100.0 fL (80.0-100.0) 11/04/20 09:20 MCH 33.0 pg (25.0-35.0) 11/04/20 09:20 MCHC 33.0 g/dL (31.0-37.0) 11/04/20 09:20 RDW 13.7 % (11.5-15.5) 11/04/20 09:20 Plt Count 189 k/uL (150-450) 11/04/20 09:20 MPV 8.2 11/04/20 09:20 Neutrophils % 81 % 11/04/20 09:20 Lymphocytes % 3 % 11/04/20 09:20 Monocytes % 14 % 11/04/20 09:20 Eosinophils % 1 % 11/04/20 09:20 Basophils % 0 % 11/04/20 09:20 Neutrophils # 5.0 k/uL (1.3-7.7) 11/04/20 09:20 Lymphocytes # 0.2 k/uL (1.0-4.8) L 11/04/20 09:20 Monocytes # 0.9 k/uL (0-1.0) 11/04/20 09:20 Eosinophils # 0.1 k/uL (0-0.7) 11/04/20 09:20 Basophils # 0.0 k/uL (0-0.2) 11/04/20 09:20 Macrocytosis Slight 11/04/20 09:20 PT 11.3 sec (9.0-12.0) 11/04/20 09:20 INR 1.1 (<1.2) 11/04/20 09:20 APTT 22.0 sec (22.0-30.0) 11/04/20 09:20 Sodium 145 mmol/L (137-145) 11/04/20 09:36 Potassium 4.1 mmol/L (3.5-5.1) 11/04/20 09:36 Chloride 111 mmol/L (98-107) H 11/04/20 09:36 Carbon Dioxide 20 mmol/L (22-30) L 11/04/20 09:36 Anion Gap 14 mmol/L 11/04/20 09:36 BUN 79 mg/dL (9-20) H 11/04/20 09:36 Creatinine 2.43 mg/dL (0.66-1.25) H 11/04/20 09:36 Est GFR (CKD-EPI)AfAm 34 (>60 ml/min/1.73 sqM) 11/04/20 09:36 Est GFR (CKD-EPI)NonAf 29 (>60 ml/min/1.73 sqM) 11/04/20 09:36 Glucose 174 mg/dL (74-99) H 11/04/20 09:36 POC Glucose (mg/dL) 182 mg/dL (75-99) H 11/04/20 09:30 POC Glu Medical Reimbursement Specialist ID Yaz Phelps 11/04/20 09:30 Calcium 9.8 mg/dL (8.4-10.2) 11/04/20 09:36 Total Bilirubin 0.4 mg/dL (0.2-1.3) 11/04/20 09:36 AST 21 U/L (17-59) 11/04/20 09:36 ALT 13 U/L (4-49) 11/04/20 09:36 Alkaline Phosphatase 61 U/L (38-126) 11/04/20 09:36 Ammonia 47 umol/L (<30) H 11/04/20 09:36 Troponin I <0.012 ng/mL (0.000-0.034) 11/04/20 09:36 Total Protein 6.7 g/dL (6.3-8.2) 11/04/20 09:36 Albumin 4.3 g/dL (3.5-5.0) 11/04/20 09:36 Valproic Acid 81.4 ug/mL 11/04/20 09:36 Serum Alcohol <10 mg/dL 11/04/20 09:36 IMPRESSIONS: Mood disorder, unspecified, rule out steroid-induced alin Hyperammonemia Rule out excitatory catatonia History of opiate dependence Cannabis use disorder PLAN: -At this time patient DOES NOT meet criteria for inpatient psychiatric admission. Currently at this time, we are unable to tolerate the patient through of psychiatric interview as the patient is currently sedated. We will continue to evaluate patient requires inpatient psychiatric admission. -Patient DOES NOT have decision making capacity at this time and is unable to reason through and communicate/appreciate the risks, benefits and alternatives to treatment. -Delirium precautions recommended with patient including - avoiding use of narcotics and MILK VENDOR sedatives, limit anticholinergic medications when possible, frequent re-orientation, minimize use of restraints, open window shades during the day and close them at night -Would recommend the following medication changes/additions: No medication recommendations are made at this time. Will defer to neurology on the reinitiation of the patient's seizure medications. Psychotropic medications will be held at this time. -Will continue to follow along
[2020-11-04 14:01] LABS: Appearance,Urine Clear (Clear); Bilirubin,Urine Negative (Negative); Blood,Urine Negative (Negative); Color,Urine Light Yellow; Glucose,Urine (UA) Negative (Negative); Ketones,Urine Negative (Negative); Leukocyte Esterase,Urine Negative (Negative); Nitrite,Urine Negative (Negative); PH, Urine 5.5 (5.0-8.0); Protein,Urine Negative (Negative); Specific Gravity,Urine 1.011 (1.001-1.035); Urobilinogen,Urine <2.0 mg/dL (<2.0)
[2020-11-04 14:13] LABS: Amphetamine Screen,Urine Not Detected (NotDetected); Barbiturate Screen,Urine Not Detected (NotDetected); Benzodiazepines Screen,Urine Not Detected (NotDetected); Cocaine Screen,Urine Not Detected (NotDetected); Methadone Screen, Urine Not Detected (NotDetected); Opiate Screen,Urine Not Detected (NotDetected); Oxycodone Screen, Urine Not Detected (NotDetected); Phencyclidine Screen,Urine Not Detected (NotDetected); Tricyclic Antidepressant,Urine Not Detected (NotDetected); Urn Cannabinoid Scrn Detected (NotDetected)
[2020-11-04] MEDS ORDERED: MECLIZINE 12.5 MG TAB PO PRN (16:15)
[2020-11-04] MEDS ORDERED: FUROSEMIDE 20 MG TAB PO PRN (16:15)
[2020-11-04] MEDS: LORazepam 2 MG/ML INJ IV PRN (16:47)
[2020-11-04] MEDS: BACLOFEN 10 MG TAB PO SCH ×2 (16:52→20:52)
[2020-11-04] MEDS: DIVALPROEX ER 500 MG TAB.ER.24H PO SCH ×2 (16:53→22:08)
[2020-11-04] MEDS: ATORVASTATIN 10 MG TAB PO SCH (16:53)
[2020-11-04 17:02] LABS: Glucose,Whole Blood 150 mg/dL (75-99)
[2020-11-04] MEDS ORDERED: metFORMIN 500 MG TAB PO SCH (17:30)
[2020-11-04] MEDS: INSULIN ASPART (NovoLOG) 100 UNIT/ML VIAL SQ SCH ×2 (18:00→21:49)
[2020-11-04 20:51] LABS: Glucose,Whole Blood 160 mg/dL (75-99)
[2020-11-04] MEDS: clonazePAM 0.5 MG TAB PO SCH (20:52)
[2020-11-04] MEDS: IBUPROFEN 800 MG TAB PO SCH (20:53)
[2020-11-04] MEDS ORDERED: LACOSAMIDE 50 MG TABLET PO SCH (21:00)
[2020-11-04] MEDS ORDERED: OLANZapine 5 MG TAB PO SCH (21:00)
[2020-11-04] MEDS: PROPRANOLOL 40 MG TAB PO SCH (21:49)
--- NOTE | 2020-11-04 23:22 | P.CNNES ---
History of Present Illness Consult date: 11/04/20 Requesting physician: Sam Carroll Reason for Consult: Altered mental status, history of seizures History of Present Illness: Patient is a 55-year-old male, with history of multiple sclerosis, seizures and pseudoseizures, came to the hospital this morning at 8:36 AM for excessive movements, confusion and altered mental status. For the last 2 days he cannot stop moving. Ativan helps him go to sleep, but when he wakes up, he is back on excessive movement. He has not started any new psych medications. Regarding confusion, patient's states that he gets mixed up with these and night. He tries to do everything opposite that he is told to do. He would go to the bathroom, when he does not have to. When she tells him to do something, he does to complete opposite. If she tells him to sit down, he stands up. He repeats. Patient's states that in March and April 2019 he was hospitalized and then transfer to [facility] several times. He has seen several psychiatrist and has tried different psychiatric medications. He also has a neurostimulator. . Patient's vitals on arrival blood pressure 147/40, pulse rate 71, temperature 97.3. Blood test shows normal WBC hemoglobin 11.7, platelets 189. PT/PTT normal. Sodium 145 potassium 4.1, BU and 79, creatinine 2.43. Hepatic panel and troponins are negative. Ammonia is mildly elevated 47. UA is negative, urine drug screen positive for marijuana. Blood alcohol level negative. Depakote level is 81.4. EKG shows sinus bradycardia with first-degree AV block. Left ventricular hypertrophy. Chest x-ray showed cardiomegaly. Strandy bibasilar atelectasis. Hypoventilatory changes. Patient has history of multiple sclerosis for last 24 years. He presented with MS-, couldn't walk. Patient has tried multiple disease modifying agents over years. He has been on Tysabri for very long period of time. 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 The last 3-4 months he has been started on Mayzent. Patient also has history of seizure disorder as well as pseudoseizures. He has not had any epileptic seizure for last 4 years. He used to have it very frequently. After he underwent VNS placement, it has almost gone in remission. He still gets pseudoseizures almost every day. His pseudoseizures starts with feeling coming on, then he stops breathing for 2 seconds and that his muscles gets rigid. The maximum duration of the pseudoseizures last for 5-6 seconds. Patient has been seen by multiple neurologists in the past. The last time patient was seen on 09/22/[address] Blake, in which it was reported that patient has history of seizures, pseudoseizures as well as multiple sclerosis for 10 years. Patient has history of seizures and pseudoseizures for which patient is on Depakote, Vimpat and also has VNS. Patient has not worked for 24 years. Review of Systems Patient denies any chest pain shortness of breath, fever or chills. He denies any abdominal pain, nausea vomiting diarrhea. Patient has anxiety, excessive movements. No loss of control of urine. Past Medical History Past Medical History: Chest Pain / Angina, Diabetes Mellitus, Eye Disorder, GERD/Reflux, Hyperlipidemia, Hypertension, Memory Impairment, Musculoskeletal Disorder, Neurologic Disorder, Osteoarthritis (OA), Pneumonia, Renal Disease, Seizure Disorder, Sleep Apnea/CPAP/BIPAP Additional Past Medical History / Comment(s): MS, several brain lesions, possible progressive brain injury, seizures daily-last seizure 09/21/19, IDDM type II, neuropathy L side body, gastroparesis, chronic cervical and lumbar back pain, spinal stimulator in place, L nephrolithiasis, anemia, insomnis, BLANE-john ot tolerate device, occasional bilateral leg edema-uses lasix prn. History of Any Multi-Drug Resistant Organisms: None Reported Past Surgical History: Back Surgery, Heart Catheterization, Orthopedic Surgery, Tonsillectomy Additional Past Surgical History / Comment(s): VNS unit L chest, spinal stimulator, lumbar fusion/cage, Cspine fusion, L knee arthroscopy, bilateral cataract removals/lens implants Past Anesthesia/Blood Transfusion Reactions: No Reported Reaction Past Psychological History: Anxiety, Depression Smoking Status: Vaper Past Alcohol Use History: Occasional Past Drug Use History: Marijuana - Past Family History Mother Family Medical History: COPD, Hypertension Father Family Medical History: Coronary Artery Disease (CAD), Myocardial Infarction ([place]) Additional Family Medical History / Comment(s): cabg. Father had a Mi at the age of 55 yrs. Heart disease runs strong on father's side of family. Medications and Allergies Home Medications Medication Instructions Recorded Confirmed Type Aspirin 81 mg PO DAILY 11/14/17 11/04/20 History Atorvastatin [Lipitor] 10 mg PO W/LUNCH 02/22/19 11/04/20 History Lacosamide [Vimpat] 200 mg PO BID 02/22/19 11/04/20 History metFORMIN HCL [Glucophage] 1,000 mg PO BID 02/22/19 11/04/20 History Ibuprofen [Motrin] 800 mg PO TID 05/18/19 11/04/20 History Lisinopril-Hctz 10-12.5 mg 2 tab PO DAILY 05/18/19 11/04/20 History [Zestoretic 10-12.5] Furosemide [Lasix] 20 mg PO DAILY PRN 06/09/19 11/04/20 History Baclofen [Lioresal] 20 mg PO QID 09/22/19 11/04/20 History OLANZapine [ZyPREXA] 2.5 mg PO DAILY #0 09/23/19 11/04/20 Rx OLANZapine [ZyPREXA] 5 mg PO HS #0 tablet 09/23/19 11/04/20 Rx Sertraline HCl [Zoloft] 100 mg PO DAILY #30 tab 09/23/19 11/04/20 Rx Divalproex ER [Depakote ER] 500 mg PO QID 11/04/20 11/04/20 History Meclizine [Antivert] 12.5 mg PO TID PRN 11/04/20 11/04/20 History Propranolol [Inderal] 40 mg PO BID 11/04/20 11/04/20 History Siponimod [Mayzent] 2 mg PO DAILY@0600 11/04/20 11/04/20 History Testosterone [Androgel 1.62% Gel 1 applic TOPICAL Q48H 11/04/20 11/04/20 History Pump] clonazePAM [KlonoPIN] 0.5 mg PO BID 11/04/20 11/04/20 History Allergies Allergy/AdvReac Type Severity Reaction Status Date / Time Penicillins Allergy Severe Swelling Verified 11/04/20 10:18 prochlorperazine AdvReac Severe Hallucinati Verified 11/04/20 10:18 [From Compazine] ons prochlorperazine edisylate AdvReac Severe Hallucinati Verified 11/04/20 10:18 [From Compazine] ons prochlorperazine maleate AdvReac Severe Hallucinati Verified 11/04/20 10:18 [From Compazine] ons bupropion HCl AdvReac Intermediate Nausea & Verified 11/04/20 10:18 [From Wellbutrin] Vomiting gabapentin [From Neurontin] AdvReac Intermediate Nausea & Verified 11/04/20 10:18 Vomiting amantadine AdvReac Unknown Nausea & Verified 11/04/20 10:18 Vomiting Physical Examination - Vital Signs Vital Signs: Vital Signs Temp Pulse Resp BP Pulse Ox 11/04/20 15:02 97.3 F L 72 18 127/65 98 11/04/20 14:00 72 18 127/65 98 11/04/20 13:00 78 18 135/74 98 11/04/20 12:00 55 L 18 96/56 98 11/04/20 11:36 49 L 18 85/50 98 11/04/20 10:07 68 18 98 11/04/20 09:44 68 18 98 11/04/20 08:39 97.3 F L 71 22 147/40 96 Intake and Output 11/04/20 11/04/20 11/04/20 06:59 14:59 22:59 Output Total 300 Balance -300 Output: Urine 300 Other: # Voids 1 Weight 107.955 kg Patient is a middle aged male, who appears obviously restless, but is in no acute distress. On asking how he was feeling, patient states "I'm okay", then states "not okay". Patient's was present throughout the encounter. Patient is alert awake. Patient states that he is in [facility] and states he is in [facility]. He states that is the month of September and the year is 2010. Then he states that it is the month of June and then states November, then October, keeps on changing the statement. Patient knows name of the current president Ky Dixon. On asking about his favorite president, states Salinas Castaneda, then he laughed. Patient states that he has 4 children, although actually he has 3. He states he is 54 years old. His speech and language functions are normal. Attention, concentration and fund of knowledge is adequate. Patient has an odd affect. Patient appears somewhat restless, frequently moves his arms and legs. He would roll to the left and then rolls to the right. He brings his left leg on the side rail. Then out of the blue, he pulls his underpants down from the front, exposing his genitalia. On cranial examination, pupils are equal, round and reacting to light, visual mckeon are full on confrontation, extraocular muscles are intact with no nystagmus. Face is symmetric, tongue protrudes to the midline. Palatal elevation and sensation normal, hearing and shoulder shrug normal, facial sensat ion normal. On muscle strength testing, there is no pronator drift and the strength is normal in arms and legs distally and proximally. Deep tendon reflexes are 1 in the upper limbs, 2 at the knees and ankles bilaterally and plantars downgoing. No clonus. Sensory to touch is equal with no neglect on double simultaneous stimulation. Cerebellar function showed no ataxia for [id number] testing. No dysdiadochokinesia. Tone and bulk of muscles normal. Gait not checked. On general examination, there is no carotid bruit or murmur, S1-S2 audible. Abdomen is soft nontender. Chest is clear. Peripheral pulses are present. No edema. Results - Laboratory Findings CBC and BMP: 11/04/20 09:20 11/04/20 09:36 Abnormal Lab Findings: Abnormal Labs 11/04/20 11/04/20 11/04/20 09:20 09:30 09:36 RBC 3.55 L Hgb 11.7 L Hct 35.5 L Lymphocytes # 0.2 L Chloride 111 H Carbon Dioxide 20 L BUN 79 H Creatinine 2.43 H Glucose 174 H POC Glucose (mg/dL) 182 H Ammonia U Marijuana (THC) Screen 11/04/20 11/04/20 09:36 13:50 RBC Hgb Hct Lymphocytes # Chloride Carbon Dioxide BUN Creatinine Glucose POC Glucose (mg/dL) Ammonia 47 H U Marijuana (THC) Screen Detected H Assessment and Plan Assessment: * Altered mental status, likely due to acute delirium versus some component of underlying psychiatric condition. Patient's movement disorder is also very atypical, arrhythmic and appears to have some component of akathisia, with some psychogenic component as well. No evidence of extrapyramidal side effects. * Acute renal failure * Multiple sclerosis, currently in remission. * History of seizure disorder and pseudoseizures, currently in remission. * ?Diabetes, last hemoglobin A1c 5.8 * Hypertension * Hyperlipidemia Plan: * Patient appears to have acute delirium. Patient also has developed acute renal failure. Renally excreted medications needs to be adjusted for his GFR. I will decrease Vimpat to 150 mg twice a day. Depakote would be fine at current dose. * Check B12, folic acid and methylmalonic acid. * Treatment of acute renal failure as per IM * Patient's ammonia was slightly elevated at 47, which could be related to use of Depakote. Repeat ammonia is 27. * Psychiatry following the patient. * We will follow clinically.
[2020-11-05] MEDS ORDERED: hydrALAZINE HCL 20 MG/ML 1 ML VIAL IVP PRN (01:27)
[2020-11-05] MEDS: LORazepam 2 MG/ML INJ IV PRN ×2 (01:43→08:34)
[2020-11-05] MEDS ORDERED: ONDANSETRON 4 MG/2 ML VIAL IVP PRN (06:32)
[2020-11-05] MEDS ORDERED: DIAZEPAM 5 MG/ML 2 ML INJ IVP STA (06:33)
[2020-11-05 07:09] LABS: Glucose,Whole Blood 164 mg/dL (75-99)
[2020-11-05] MEDS: INSULIN ASPART (NovoLOG) 100 UNIT/ML VIAL SQ SCH ×4 (08:34→20:59)
[2020-11-05] MEDS: PROPRANOLOL 40 MG TAB PO SCH (08:35)
[2020-11-05] MEDS: LISINOPRIL-HCTZ 10-12.5 MG 1 EACH TAB PO SCH (08:35)
[2020-11-05] MEDS: DIVALPROEX ER 500 MG TAB.ER.24H PO SCH ×3 (08:35→16:45)
[2020-11-05] MEDS: BACLOFEN 10 MG TAB PO SCH ×3 (08:36→20:52)
[2020-11-05] MEDS: ATORVASTATIN 10 MG TAB PO SCH (08:36)
[2020-11-05] MEDS: IBUPROFEN 800 MG TAB PO SCH ×3 (08:36→20:51)
[2020-11-05] MEDS: SERTRALINE 100 MG TAB PO SCH (08:36)
[2020-11-05] MEDS: ASPIRIN 81 MG PO SCH (08:36)
[2020-11-05] MEDS: LACOSAMIDE 150 MG TABLET PO SCH ×2 (08:36→20:53)
[2020-11-05] MEDS: clonazePAM 0.5 MG TAB PO SCH (08:37)
--- NOTE | 2020-11-05 08:46 | HP ---
HISTORY AND PHYSICAL 55-year-old white male, multiple sclerosis, seizures, pseudoseizures, came in the hospital for excessive movement, confusion, altered mental status. He cannot stop moving. He has had this before about a year and a half ago when he went down to [facility]. Ativan helps him go to sleep. He wakes up. He has excessive movement, not started any new medications. He gets mixed up with these, during these he is confused. He has movement episodes, tell him to do something, he does the completely opposite. He tried multiple medications as well as neural stimulators. Blood pressure is 147/40, pulse rate 71, temp 97.3. White count 11.7, platelets 189. Sodium 145, potassium 4.1, BUN is 79, creatinine is 2.43. Hepatic and troponins are negative. Ammonia is mildly elevated at 47. UA is negative. Drug screen positive for marijuana. Alcohol is negative. Depakote level is 81.48. EKG sinus, first-degree AV block, LVH. Chest x-ray, cardiomegaly. History of MS for the last 24 years. He had JCV positive, we switched to 0crevice for 3-4 years. He was started on Mayzent. History of seizure disorder, pseudoseizures, epileptic seizures for last 4 years, pseudoseizures every day, stops breathing for 2 seconds at a time muscles get rigid pseudoseizures 46 seconds, history of MS for the last 10 years. He is on Depakote, Vimpat, and VNS stimulator. Hasn't Worked for 24 years. PAST MEDICAL HISTORY: Past medical history as mentioned, MS several brain lesions, progressive brain injury, seizures, pseudoseizures, type 2 diabetes mellitus, neuropathy, gastroparesis, obstructive sleep apnea. SURGERIES: Back surgery, heart catheterization, orthopedic surgery, tonsillectomy, fusion cage C- spine fusion, left knee arthroscopy, bilateral cataracts, anxiety, depression. MEDICATIONS: Home medicines aspirin 81 daily, Lipitor 10 mg daily, Vimpat 200 b.i.d., metformin 1000 b.i.d., lisinopril hydrochlorothiazide 12.5 -2 a day, Lasix 20 daily 20 q.i.d., Zyprexa 5 mg at night, 2-1/2 in the morning. Zoloft 100 mg daily, Depakote ER 500 q.i.d., Antivert 12.5 q.8h p.r.n., Inderal 40 mg b.i.d., Meghann 2 mg daily, AndroGel pump, Klonopin 0.5 b.i.d. ALLERGIES: To PENICILLIN, COMPAZINE, WELLBUTRIN, NEURONTIN, AMANTADINE PHYSICAL EXAMINATION: At this time blood pressure is 96 to 140s over 40 to 65, temp 97.3, pulse 60s 70s, respiratory 18-22. Neurologic is alert, oriented x1. He has movements x4 extremities involuntary movements, grimacing movement with excessive force in extremities. Cardiovascular S1- S2, lungs clear. He does move 4 extremities. Face is symmetric. Tongue is midline. LABORATORY DATA: Labs are reviewed. Ammonia level is 47. ASSESSMENT: Prerenal renal failure, dehydration, altered mental status secondary to underlying psychiatric condition. Movement disorder is also very typical, akathisia with some psychogenic component as well. No evidence of extrapyramidal side effects. Acute renal failure, multiple sclerosis, history of seizures, pseudoseizures, diabetes, hypertension, dyslipidemia, prerenal renal failure, dehydration which will be treated with rehydration. Vimpat is being decreased to 150 b.i.d. Depakote is currently stable. Rehydrate the patient. Elevated ammonia could be related to Depakote. Repeat ammonia is 27. Psych following, possibly stop psych medications as he has some akathisia or dyskinesia. Prognosis guarded. MMODL / IJN: [id number] /
[2020-11-05] MEDS ORDERED: OLANZapine 2.5 MG TAB PO SCH (09:00)
[2020-11-05 09:16] LABS: HCT 33.9 % (39.6-50.0); HGB 11.6 g/dL (13.0-17.0); MCH 33.3 pg (27.0-32.0); MCHC 34.2 g/dL (32.0-37.0); MCV 97.4 fL (80.0-97.0); Mean Platelet Volume 10.1 fL (9.5-12.2); Platelet Count 219 X 10*3/uL (140-440); RBC 3.48 X 10*6/uL (4.40-5.60); RDW 12.7 % (11.5-14.5); WBC 7.96 X 10*3/uL (4.50-10.00)
[2020-11-05] MEDS ORDERED: TESTOSTERONE TOPICAL SCH (10:00)
[2020-11-05 11:30] LABS: Glucose,Whole Blood 176 mg/dL (75-99)
[2020-11-05 12:15] LABS: Basophils # (A) 0.04 X 10*3/uL (0.00-0.10); Basophils % (A) 0.5 %; Eosinophils # (A) 0.06 X 10*3/uL (0.04-0.35); Eosinophils % (A) 0.8 %; Lymphocytes % (A) 2.5 %; Monocytes # (A) 1.61 X 10*3/uL (0.20-1.00); Monocytes % (A) 20.2 %; Neutrophils # (A) 5.89 X 10*3/uL (1.80-7.70)
--- NOTE | 2020-11-05 13:59 | P.PN ---
Progress Note - Text Progress Note Date: 11/05/20 Interval History: Patient was seen resting in bed and was arousable but a notably poor historian. Once woken up the patient is alert and oriented to person only. He is not oriented to place or time. He does not recognize his present in the room. The patient does admit to feeling increasingly restless. His is present in the room and she reports that yesterday evening, the patient woke up and began pacing and was not directable. She states he was like that again this morning and required medication to sedate him again. She also notes that the patient appears to display some hypersexual behavior by often touching his private parts and trying to expose it. Mental Status Exam: General Appearance: Patient appears to be stated age is alert, undirectable, uncooperative. Behavior: Patient is lying in bed with psychomotor agitation. Patient is constantly moving his legs and trunk. He also is touching himself and trying to remove his underwear. Speech: Patient's speech is nonspontaneous, minimal. Mood/Affect: Mood is "ok." Affect appears to be confused and annoyed. Suicidality/Homicidality: Unable to assess. Perceptions: Unable to assess. Though content/process: Unable to assess. Memory and concentration: Poor Judgment and insight: Poor Vital Signs Temp 99.8 F H 11/05/20 08:00 Pulse 72 11/05/20 08:00 Resp 18 11/05/20 08:00 BP 157/89 11/05/20 08:00 Pulse Ox 96 11/05/20 08:00 Intake & Output 11/04/20 11/05/20 11/05/20 18:59 06:59 18:59 Output Total 300 Balance -300 Weight 107.955 kg Output: Urine 300 Other: # Voids 3 Assessment: Altered mental status, unknown etiology - acute delirum vs psychiatric disorder. - patient displays fluctuating cognition. Concern for frontal/temporal lobe damage as patient displays hypersexual behavior and increased mood lability as per 's history. Unspecified movement disorder -Akasthisia-like movements; Patient is not on EPS inducing medications. Zyprexa was discontinued. Unknown etiology of movement disorder patient is presenting with. He is on propanolol which is a treatment for Akasthisia and has received benzodiazepines throughout this hopsitalization. Hyperammonemia, resolving Rule out excited catatonia History of opiate dependence Cannabis use disorder Plan: -At this time patient DOES NOT meet criteria for inpatient psychiatric admission. Currently at this time, the patient presents with more delirium and is uncertain of underlying psychiatric pathology. We will continue to evaluate patient requires inpatient psychiatric admission. -Patient DOES NOT have decision making capacity at this time and is unable to reason through and communicate/appreciate the risks, benefits and alternatives to treatment. -Delirium precautions recommended with patient including - avoiding use of narcotics and QUANTITATIVE MANAGER sedatives, limit anticholinergic medications when possible, frequent re-orientation, minimize use of restraints, open window shades during the day and close them at night -Would recommend the following medication changes/additions: We will discontinue klonopin 0.5 mg twice daily. We will start ativan 2 mg three times daily for management of akasthisia along with the patient's propranolol. Furthermore if there is concern for an excited catatonia, this should also address this. -Will continue to follow along
[2020-11-05] MEDS: LACTULOSE 20 GM/30 ML CUP PO SCH ×2 (15:37→20:50)
[2020-11-05] MEDS: LORazepam 1 MG TAB PO SCH ×2 (15:37→20:53)
--- NOTE | 2020-11-05 16:38 | P.CONS ---
History of Present Illness - Reason for Consult Consult date: 11/05/20 Elevated ammonia level Requesting physician: Bruce Khan - Chief Complaint Altered Mental status - History of Present Illness Assessment 55-year-old white male who presented to the emergency department with complaints of altered mental status changes including confusion, excessive movements and not following directions. Has a history of multiple sclerosis, seizures, pseudoseizures 80s mellitus, hyperlipidemia, hypertension, renal disease, gastroparesis and obstructive sleep apnea. Patient is a poor historian but according to documents and medical records and his brought him in because of increased confusion, he is on multiple medications including Depakot e, Klonopin, Vimpat, Zyprexia others. He denies any history of liver disease, known family history of liver disease, denies any history of hepatitis, no history of alcohol abuse the past or currently. He was noted to have an ammonia level of 40 on admission therefore gastroenterology was consult. He had a repeat that came down to 27 yesterday, and then today again was elevated at 60, Otherwise LFTs were unremarkable. Patient is only alert to self and place. He believes it's 2010. His documented at times he does not know who his is. He has a sitter at the bedside. Review of Systems ROS unobtainable: due to mental status Past Medical History Past Medical History: Chest Pain / Angina, Diabetes Mellitus, Eye Disorder, GERD/Reflux, Hyperlipidemia, Hypertension, Memory Impairment, Musculoskeletal Disorder, Neurologic Disorder, Osteoarthritis (OA), Pneumonia, Renal Disease, Seizure Disorder, Sleep Apnea/CPAP/BIPAP Additional Past Medical History / Comment(s): MS, several brain lesions, possible progressive brain injury, seizures daily-last seizure 09/21/19, IDDM type II, neuropathy L side body, gastroparesis, chronic cervical and lumbar back pain, spinal stimulator in place, L nephrolithiasis, anemia, insomnis, BLANE- cannot tolerate device, occasional bilateral leg edema-uses lasix prn. History of Any Multi-Drug Resistant Organisms: None Reported Past Surgical History: Back Surgery, Heart Catheterization, Orthopedic Surgery, Tonsillectomy Additional Past Surgical History / Comment(s): VNS unit L chest, spinal stimulator, lumbar fusion/cage, Cspine fusion, L knee arthroscopy, bilateral cat aract removals/lens implants Past Anesthesia/Blood Transfusion Reactions: No Reported Reaction Past Psychological History: Anxiety, Depression Smoking Status: Vaper Past Alcohol Use History: Occasional Past Drug Use History: Marijuana - Past Family History Mother Family Medical History: COPD, Hypertension Father Family Medical History: Coronary Artery Disease (CAD), Myocardial Infarction (GA) Additional Family Medical History / Comment(s): cabg. Father had a Mi at the age of 55 yrs. Heart disease runs strong on father's side of family. Medications and Allergies Home Medications Medication Instructions Recorded Confirmed Type Aspirin 81 mg PO DAILY 11/14/17 11/04/20 History Atorvastatin [Lipitor] 10 mg PO W/LUNCH 02/22/19 11/04/20 History Lacosamide [Vimpat] 200 mg PO BID 02/22/19 11/04/20 History metFORMIN HCL [Glucophage] 1,000 mg PO BID 02/22/19 11/04/20 History Ibuprofen [Motrin] 800 mg PO TID 05/18/19 11/04/20 History Lisinopril-Hctz 10-12.5 mg 2 tab PO DAILY 05/18/19 11/04/20 History [Zestoretic 10-12.5] Furosemide [Lasix] 20 mg PO DAILY PRN 06/09/19 11/04/20 History Baclofen [Lioresal] 20 mg PO QID 09/22/19 11/04/20 History OLANZapine [ZyPREXA] 2.5 mg PO DAILY #0 09/23/19 11/04/20 Rx OLANZapine [ZyPREXA] 5 mg PO HS #0 tablet 09/23/19 11/04/20 Rx Sertraline HCl [Zoloft] 100 mg PO DAILY #30 tab 09/23/19 11/04/20 Rx Divalproex ER [Depakote ER] 500 mg PO QID 11/04/20 11/04/20 History Meclizine [Antivert] 12.5 mg PO TID PRN 11/04/20 11/04/20 History Propranolol [Inderal] 40 mg PO BID 11/04/20 11/04/20 History Siponimod [Mayzent] 2 mg PO DAILY@0600 11/04/20 11/04/20 History Testosterone [Androgel 1.62% Gel 1 applic TOPICAL Q48H 11/04/20 11/04/20 History Pump] clonazePAM [KlonoPIN] 0.5 mg PO BID 11/04/20 11/04/20 History Allergies Allergy/AdvReac Type Severity Reaction Status Date / Time Penicillins Allergy Severe Swelling Verified 11/04/20 10:18 prochlorperazine AdvReac Severe Hallucinati Verified 11/04/20 10:18 [From Compazine] ons prochlorperazine edisylate AdvReac Severe Hallucinati Verified 11/04/20 10:18 [From Compazine] ons prochlorperazine maleate AdvReac Severe Hallucinati Verified 11/04/20 10:18 [From Compazine] ons bupropion HCl AdvReac Intermediate Nausea & Verified 11/04/20 10:18 [From Wellbutrin] Vomiting gabapentin [From Neurontin] AdvReac Intermediate Nausea & Verified 11/04/20 10:18 Vomiting amantadine AdvReac Unknown Nausea & Verified 11/04/20 10:18 Vomiting Physical Exam Vitals: Vital Signs Temp Pulse Resp BP Pulse Ox 11/05/20 08:00 99.8 F H 72 18 157/89 96 11/05/20 02:36 131/96 11/05/20 01:10 97.8 F 92 98 11/04/20 19:13 97.9 F 77 16 153/69 96 General appearance: The patient is alert, oriented to self and place, appears in no acute distress. HET: Head is normocephalic and atraumatic. Conjunctiva pink. Sclera anicteric. Neck: Supple without lymphadenopathy. Trachea midline. Heart: S1 S2. Regular rate and rhythm. Lungs: Clear to auscultation. Abdomen: Soft, tender, nondistended with bowel sounds. No guarding or rigidity. Skin: No rashes. No jaundice. Extremities: Normal skin color and turgor. No pedal edema. Neurological: No focal deficits. Alert and oriented 2.. Results CBC & Chem 7: 11/05/20 06:34 11/04/20 09:36 Labs: Abnormal Lab Results - Last 24 Hours (Table) 11/04/20 11/04/20 11/05/20 Range/Units 16:59 20:49 06:34 RBC 3.48 L (4.40-5.60) X 10*6/uL Hgb 11.6 L (13.0-17.0) g/dL Hct 33.9 L (39.6-50.0) % MCV 97.4 H (80.0-97.0) fL MCH 33.3 H (27.0-32.0) pg Immature Gran # 0.16 H (0.00-0.04) X 10*3/uL Lymphocytes # 0.20 L (0.90-5.00) X 10*3/uL Monocytes # 1.61 H (0.20-1.00) X 10*3/uL POC Glucose (mg/dL) 150 H 160 H (75-99) mg/dL Ammonia (<30) umol/L 11/05/20 11/05/20 11/05/20 Range/Units 07:01 10:39 11:29 RBC (4.40-5.60) X 10*6/uL Hgb (13.0-17.0) g/dL Hct (39.6-50.0) % MCV (80.0-97.0) fL MCH (27.0-32.0) pg Immature Gran # (0.00-0.04) X 10*3/uL Lymphocytes # (0.90-5.00) X 10*3/uL Monocytes # (0.20-1.00) X 10*3/uL POC Glucose (mg/dL) 164 H 176 H (75-99) mg/dL Ammonia 60 H (<30) umol/L Assessment and Plan (1) Hyperammonemia Narrative/Plan: 45-year-old male who presented to the emergency department complaints of altered mental status changes including confusion, restlessness, and inability to follow directions or be redirected. He has a past medical history including multiple sclerosis, and seizure disorders. He is on multiple medications including Depakote. He is noted to have chronic kidney disease and admission BUN of 79, creatinine 2.43. He has no previous history of liver disease, denies any history of alcohol abuse, hepatitis and denies any family history of liver disease. On admission he was noted to have an ammonia level 47, repeat was normal at 27. Today his repeat ammonia level increased again to 60. He is still having confusion, he has a sitter at the bedside. Neurology and psychiatry have both seen patient. Likely hyper ammonemia is medication induced as he should has no previous history of liver disease, LFTs are all normal. Neurology also believes that hyperammonemia could be medication induced from Depakote due to dosing and renal disease, medications have been adjusted. Will start patient on lactulose 30 g 3 times a day, titrate to have 3-4 bowel movements daily. Current Visit: Yes Status: Acute Code(s): E72.20 - DISORDER OF UREA CYCLE METABOLISM, UNSPECIFIED SNOMED Code(s): 3973454 (2) Altered mental status Current Visit: Yes Status: Acute Code(s): R41.82 - ALTERED MENTAL STATUS, UNSPECIFIED SNOMED Code(s): 750643383 Plan: 1. Continue symptomatic and supportive care 2. Start patient on lactulose 30 g 3 times a day, titrate to have 3-4 bowel movements daily 3. Repeat ammonia level tomorrow 4. Continue with medical management Thank you for this consultation, we will continue to follow. Dr. Mónica Velasquez I agree with the dictator's note, documented as a scribe by Marina Ramirez.
[2020-11-05 16:56] LABS: Glucose,Whole Blood 190 mg/dL (75-99)
--- NOTE | 2020-11-05 17:01 | PN ---
PROGRESS NOTE This is a 55-year-old white male, a poor historian. He woke. He is alert and oriented times person only. He is admitted with progressive brain injury, increasing restlessness, unable to control his extremities. Psych versus neuro. Consult is pending. Unclear what is wrong with him except for progressive brain injury. The patient appears to display some hypersexual behavior after touching his private parts and trying to expose it according to Psychiatry, who talked to him. He is alert, undirectable, uncooperative, lying in bed with psychomotor agitation. Cardiovascular: S1, S2. Lungs clear. GI is soft. GI is distended. ASSESSMENT: 1. Possible frontal temporal lobe damage with hypersexual behavior. 2. Increased mood delirium versus psychiatric disorder. 3. Akathesia-like movements. Unsure what is causing it. He is on Propranolol, which is a treatment for akathesia and has received benzodiazepines hospitalization. 4. Hyperammonemia, resolving due to Depakote. Rule out excited catatonia. 5. Marijuana disorder. Ativan was not helping him. We switched it to Valium to try to control his psychomotor agitation overnight. We is awaiting neuro and psych recommendations. They stopped his Klonopin. They gave him Ativan 2 mg 3 times a day for the management of akathesia along with the propranolol. CONDITION: Very unstable. MMODL / IJN: [id number] /
[2020-11-05 17:35] LABS: Hemoglobin A1C 6.8 % (4.0-6.0)
--- NOTE | 2020-11-05 20:37 | P.PN ---
Subjective Progress Note Date: 11/05/20 Patient was seen for a follow-up. Patient is slightly better. Patient's states that he is better when he is getting medication. Patient denies any headaches or any focal symptoms. Objective - Vital Signs Vital signs: Vital Signs Temp 99.8 F H 11/05/20 08:00 Pulse 72 11/05/20 08:00 Resp 18 11/05/20 08:00 BP 157/89 11/05/20 08:00 Pulse Ox 96 11/05/20 08:00 Intake & Output 11/04/20 11/05/20 11/05/20 18:59 06:59 18:59 Output Total 300 Balance -300 Weight 107.955 kg Output: Urine 300 Other: # Voids 3 - Exam Patient is alert and awake, laying comfortably in the bed. Speech and language functions appears normal. Patient is not having significant movement disorder noticeable at this time. He is laying still. - Labs CBC & Chem 7: 11/05/20 06:34 11/04/20 09:36 Labs: Abnormal Lab Results - Last 24 Hours (Table) 11/04/20 11/04/20 11/05/20 Range/Units 16:59 20:49 06:34 RBC 3.48 L (4.40-5.60) X 10*6/uL Hgb 11.6 L (13.0-17.0) g/dL Hct 33.9 L (39.6-50.0) % MCV 97.4 H (80.0-97.0) fL MCH 33.3 H (27.0-32.0) pg Immature Gran # 0.16 H (0.00-0.04) X 10*3/uL Lymphocytes # 0.20 L (0.90-5.00) X 10*3/uL Monocytes # 1.61 H (0.20-1.00) X 10*3/uL POC Glucose (mg/dL) 150 H 160 H (75-99) mg/dL Ammonia (<30) umol/L 11/05/20 11/05/20 11/05/20 Range/Units 07:01 10:39 11:29 RBC (4.40-5.60) X 10*6/uL Hgb (13.0-17.0) g/dL Hct (39.6-50.0) % MCV (80.0-97.0) fL MCH (27.0-32.0) pg Immature Gran # (0.00-0.04) X 10*3/uL Lymphocytes # (0.90-5.00) X 10*3/uL Monocytes # (0.20-1.00) X 10*3/uL POC Glucose (mg/dL) 164 H 176 H (75-99) mg/dL Ammonia 60 H (<30) umol/L 11/05/20 Range/Units 16:54 RBC (4.40-5.60) X 10*6/uL Hgb (13.0-17.0) g/dL Hct (39.6-50.0) % MCV (80.0-97.0) fL MCH (27.0-32.0) pg Immature Gran # (0.00-0.04) X 10*3/uL Lymphocytes # (0.90-5.00) X 10*3/uL Monocytes # (0.20-1.00) X 10*3/uL POC Glucose (mg/dL) 190 H (75-99) mg/dL Ammonia (<30) umol/L Assessment and Plan Assessment: * Altered mental status, likely due to acute delirium versus some component of underlying psychiatric condition. * Movement disorder possible akathisia, with some psychogenic component as well. No evidence of extrapyramidal side effects. * Acute renal failure * Multiple sclerosis, currently in remission. * History of seizure disorder and pseudoseizures, currently in remission. * ?Diabetes, last hemoglobin A1c 5.8 * B12 deficiency * Hypertension * Hyperlipidemia Plan: * Patient appears to have acute delirium. Patient also has developed acute renal failure. Renally excreted medications needs to be adjusted for his GFR. I will decrease Vimpat to 150 mg twice a day. Depakote would be fine at current dose. * B12 298, which is borderline, folic acid pending and methylmalonic acid pending. We will start B12 injection. * Treatment of acute renal failure as per IM * Patient's ammonia level is fluctuating. Her most recent ammonia is 60. We wi ll decrease Depakote from 500 mg 4 times a day down to 250 mg 4 times a day. I would avoid abrupt discontinuation of Depakote. * Seizure precautions. * Psychiatry following the patient. * We will follow clinically.
[2020-11-05 20:44] LABS: African American GFR (CKD) 60.7 (60.0-200.0); Albumin 4.8 g/dL (3.80-4.90); Albumin/Globulin Ratio 2.18 (1.60-3.17); Anion Gap 21.8 mmol/L (4.00-12.00); BUN/Creat Ratio 38.67 Ratio (12.00-20.00); Calcium 9.7 mg/dL (8.7-10.3); Carbon Dioxide 15.2 mmol/L (21.6-31.8); Globulin 2.2 g/dL (1.6-3.3); Non-African American GFR(CKD) 52.4 (60.0-200.0); Potassium 3.9 mmol/L (3.5-5.5); Total Bilirubin 0.5 mg/dL (0.2-1.2)
[2020-11-05 20:50] LABS: Glucose,Whole Blood 107 mg/dL (75-99)
[2020-11-05] MEDS: DIVALPROEX ER 250 MG TAB.ER.24H PO SCH (20:58)
[2020-11-06] MEDS: PROPRANOLOL 20 MG TAB PO SCH ×3 (00:18→22:24)
[2020-11-06] MEDS: LORazepam 2 MG/ML INJ IV PRN ×3 (00:18→22:25)
[2020-11-06] MEDS: CYANOCOBALAMIN 1,000 MCG/ML 1 ML VIAL IM SCH ×2 (00:20→22:42)
[2020-11-06] MEDS: BACLOFEN 10 MG TAB PO SCH ×5 (00:21→21:30)
[2020-11-06] MEDS: DIVALPROEX ER 250 MG TAB.ER.24H PO SCH ×5 (00:21→22:24)
[2020-11-06 07:04] LABS: Glucose,Whole Blood 146 mg/dL (75-99)
[2020-11-06] MEDS: INSULIN ASPART (NovoLOG) 100 UNIT/ML VIAL SQ SCH ×4 (07:10→22:24)
[2020-11-06] MEDS: ASPIRIN 81 MG PO SCH (07:11)
[2020-11-06] MEDS: LORazepam 1 MG TAB PO SCH ×4 (07:11→21:30)
[2020-11-06] MEDS: LACOSAMIDE 150 MG TABLET PO SCH ×2 (07:11→21:30)
[2020-11-06] MEDS: IBUPROFEN 800 MG TAB PO SCH ×3 (07:11→21:30)
[2020-11-06] MEDS: LISINOPRIL-HCTZ 10-12.5 MG 1 EACH TAB PO SCH (07:13)
[2020-11-06] MEDS: LACTULOSE 20 GM/30 ML CUP PO SCH ×3 (07:13→21:30)
[2020-11-06] MEDS: SERTRALINE 100 MG TAB PO SCH (07:25)
[2020-11-06 11:26] LABS: Glucose,Whole Blood 199 mg/dL (75-99)
--- NOTE | 2020-11-06 11:49 | PN ---
PROGRESS NOTE DATE OF SERVICE: 11/06/2020. HISTORY: The patient is a 55-year-old pleasant white male admitted to the hospital yesterday with altered mental status and hyperammonemia for which he was seen on consultation yesterday. He was started on oral lactulose 30 mL 3 times daily. He had 2 bowel movements yesterday and 1 this morning. Ammonia level has improved today and is down to 34 she is more awake and alert today. He is complaining of poor oral intake. No abdominal pain. No nausea, no vomiting. Has no history of chronic liver disease, however, he does have a longstanding history of diabetes mellitus. PHYSICAL EXAMINATION: He appears comfortable. No apparent distress. Vital signs stable blood pressure 136/80, pulse rate 76, temperature 98. HEENT examination unremarkable sclerae anicteric oral cavity no lesions. Neck no JVD or lymph node enlargement. Chest was clear auscultation. Heart regular rate and rhythm. Abdomen was obese. Bowel sounds are positive no organomegaly. Extremities no pedal edema. Neuro he is alert for oriented to name, place and time. LABS: WBC 7.96, hemoglobin 11.6, platelets normal. Basic metabolic panel is within normal limits. BUN is 58, creatinine 1.5. AST, ALT, t bilirubin and alkaline phosphatase are all within normal limits. Ammonia level 60 yesterday and today it is 34. IMPRESSION: 1. Altered mental study mild confusion and hyperammonemia in this patient with no history of chronic liver disease, serum transaminases are within normal limits. However, the patient does have history of longstanding diabetes mellitus and possibility of fatty liver disease/chronic liver disease cannot be entirely excluded at the present time. He was started on oral lactulose yesterday and ammonia level has improved to 34 today. Clinically, his mentation is normal. 2. Longstanding history of diabetes mellitus. 3. History of CAD. 4. History of seizure disorder. 5. History of multiple sclerosis, currently in remission and neurology following the patient closely. RECOMMENDATIONS: 1. Continue with oral lactulose and titrate so that he has 3 bowel movements daily. 2. Monitor ammonia on a daily basis. 3. Continue with symptomatic and supportive care. 4. Follow labs closely and we will follow with you. Thank you for this consultation. MMODL / IJN: [id number] /
[2020-11-06] MEDS: ATORVASTATIN 10 MG TAB PO SCH (11:59)
--- NOTE | 2020-11-06 12:00 | PN ---
PROGRESS NOTE The patient has a little bit less psychomotor agitation and dyskinesia appears to be improving. Increased propranolol 60 b.i.d. increased Ativan to 2 mg t.i.d. and medicines is helping him feel better. Temperature 99.8, pulse 72 respiratory 16 to 18, blood pressure is 150s over 80s, O2 96, BUN is 79, creatinine is 2.43. Musculoskeletal less psychomotor agitation. Less dyskinesia movements. Cardiovascular S1, S2. Lungs clear. Psych alert oriented x2. ASSESSMENT: 1. Altered mental status, acute delirium with underlying psychiatric conditions, improving. 2. Akinesia psychogenic component. 3. Acute renal failure, improving. 4. Prerenal azotemia, improving. 5. Multiple sclerosis in remission. 6. Seizure disorders, pseudoseizures. 7. Diabetes. 8. B12 deficiency. 9. Hypertension. 10.Dyslipidemia. RECOMMENDATIONS: decreased due to renal function. Depakote probably cause of the elevated ammonia levels. Going to give B12 injection for B12 borderline deficiency. Ammonia is elevated secondary to Depakote which has been decreased from 500 to 250 q.i.d. Prognosis is guarded. MMODL / IJN: [id number] /
[2020-11-06 16:25] LABS: Glucose,Whole Blood 144 mg/dL (75-99)
[2020-11-06 21:50] LABS: Glucose,Whole Blood 123 mg/dL (75-99)
[2020-11-07] MEDS: LORazepam 2 MG/ML INJ IV PRN ×4 (03:28→22:16)
[2020-11-07 05:32] LABS: ALT 15 U/L (4-49); AST 26 U/L (17-59); African American GFR (CKD) 66 (>60 ml/min/1.73 sqM); Albumin/Globulin Ratio 1.6; Alkaline Phosphatase 69 U/L (38-126); Anion Gap 12 mmol/L; Blood Urea Nitrogen 43 mg/dL (9-20); Calcium 9.7 mg/dL (8.4-10.2); Carbon Dioxide 21 mmol/L (22-30); Chloride 107 mmol/L (98-107); Globulin 2.5 g/dL; Glucose 173 mg/dL (74-99); Non-African American GFR(CKD) 57 (>60 ml/min/1.73 sqM); Potassium 3.7 mmol/L (3.5-5.1); Sodium 140 mmol/L (137-145); Total Bilirubin 0.3 mg/dL (0.2-1.3); Total Protein 6.5 g/dL (6.3-8.2)
[2020-11-07 07:14] LABS: Glucose,Whole Blood 155 mg/dL (75-99)
[2020-11-07] MEDS: INSULIN ASPART (NovoLOG) 100 UNIT/ML VIAL SQ SCH ×4 (07:44→21:25)
[2020-11-07] MEDS: ASPIRIN 81 MG PO SCH (08:07)
[2020-11-07] MEDS: LORazepam 1 MG TAB PO SCH ×4 (08:07→21:22)
[2020-11-07] MEDS: LACOSAMIDE 150 MG TABLET PO SCH ×2 (08:08→21:23)
[2020-11-07] MEDS: SERTRALINE 100 MG TAB PO SCH (08:08)
[2020-11-07] MEDS: IBUPROFEN 800 MG TAB PO SCH ×3 (08:08→21:22)
[2020-11-07] MEDS: PROPRANOLOL 20 MG TAB PO SCH ×2 (08:09→22:16)
[2020-11-07] MEDS: LISINOPRIL-HCTZ 10-12.5 MG 1 EACH TAB PO SCH (08:09)
[2020-11-07] MEDS: DIVALPROEX ER 250 MG TAB.ER.24H PO SCH (08:10)
[2020-11-07] MEDS: LACTULOSE 20 GM/30 ML CUP PO SCH ×3 (08:12→21:23)
[2020-11-07] MEDS: BACLOFEN 10 MG TAB PO SCH ×4 (08:17→21:22)
[2020-11-07 09:20] LABS: Basophils # (A) 0.07 X 10*3/uL (0.00-0.10); Basophils % (A) 1.3 %; Eosinophils # (A) 0.14 X 10*3/uL (0.04-0.35); Eosinophils % (A) 2.6 %; HGB 11.6 g/dL (13.0-17.0); Lymphocytes # (A) 0.16 X 10*3/uL (0.90-5.00); MCH 32.8 pg (27.0-32.0); MCHC 33.1 g/dL (32.0-37.0); MCV 98.9 fL (80.0-97.0); Mean Platelet Volume 10.5 fL (9.5-12.2); Monocytes # (A) 1.12 X 10*3/uL (0.20-1.00); Monocytes % (A) 20.7 %; Neutrophils # (A) 3.68 X 10*3/uL (1.80-7.70); Platelet Count 206 X 10*3/uL (140-440); RBC 3.54 X 10*6/uL (4.40-5.60); RDW 12.6 % (11.5-14.5); WBC 5.41 X 10*3/uL (4.50-10.00)
--- NOTE | 2020-11-07 09:32 | P.PN ---
Subjective Progress Note Date: 11/06/20 11/06/2020: This is a Tele-neurology follow-up performed on the patient today on 11/06/2020. Patient apparently had 2 pseudoseizures, each lasting for 15 seconds. Patient's believes that he is slightly confused. Patient is not having any significant movement disorder. No other concerns. Objective - Vital Signs Vital signs: Vital Signs Temp 97.6 F 11/06/20 07:41 Pulse 61 11/06/20 08:47 Resp 18 11/06/20 08:47 BP 136/88 11/06/20 07:41 Pulse Ox 95 11/06/20 07:41 Intake & Output 11/05/20 11/06/20 11/06/20 18:59 06:59 18:59 Other: Voiding Method External Catheter External Catheter # Voids 3 2 - Exam Patient is alert and awake, sitting comfortably in the recliner. Patient states it's September and the year is 2020 and states that it is mid summer season. He knows that he is in [facility] in [place]. He knows name of the current president Ky Dixon. He today admits that she has 3 children and 6 grandchildren. Speech and language functions appears normal. I did not see any akathisia, or excessive movement. - Labs CBC & Chem 7: 11/05/20 06:34 11/07/20 04:59 Labs: Abnormal Lab Results - Last 24 Hours (Table) 11/05/20 11/05/20 11/05/20 Range/Units 06:34 06:34 16:54 Sodium 150 H (135-145) mmol/L Chloride 113 H (96-109) mmol/L Carbon Dioxide 15.2 L (21.6-31.8) mmol/L Anion Gap 21.80 H (4.00-12.00) mmol/L BUN 58.0 H (9.0-27.0) mg/dL Est GFR (CKD-EPI)NonAf 52.4 L (60.0-200.0) BUN/Creatinine Ratio 38.67 H (12.00-20.00) Ratio Glucose 168 H (70-110) mg/dL POC Glucose (mg/dL) 190 H (75-99) mg/dL Hemoglobin A1c 6.8 H (4.0-6.0) % Ammonia (<30) umol/L 11/05/20 11/06/20 11/06/20 Range/Units 20:47 06:58 07:03 Sodium (135-145) mmol/L Chloride (96-109) mmol/L Carbon Dioxide (21.6-31.8) mmol/L Anion Gap (4.00-12.00) mmol/L BUN (9.0-27.0) mg/dL Est GFR (CKD-EPI)NonAf (60.0-200.0) BUN/Creatinine Ratio (12.00-20.00) Ratio Glucose (70-110) mg/dL POC Glucose (mg/dL) 107 H 146 H (75-99) mg/dL Hemoglobin A1c (4.0-6.0) % Ammonia 34 H (<30) umol/L 11/06/20 Range/Units 11:24 Sodium (135-145) mmol/L Chloride (96-109) mmol/L Carbon Dioxide (21.6-31.8) mmol/L Anion Gap (4.00-12.00) mmol/L BUN (9.0-27.0) mg/dL Est GFR (CKD-EPI)NonAf (60.0-200.0) BUN/Creatinine Ratio (12.00-20.00) Ratio Glucose (70-110) mg/dL POC Glucose (mg/dL) 199 H (75-99) mg/dL Hemoglobin A1c (4.0-6.0) % Ammonia (<30) umol/L Assessment and Plan Assessment: * Altered mental status, likely due to acute delirium versus some component of underlying psychiatric condition. * Movement disorder possible akathisia, now seems to have resolved. No evidence of extrapyramidal side effects. * Acute renal failure * Multiple sclerosis, currently in remission. * History of seizure disorder and pseudoseizures, currently in remission. * ?Diabetes, last hemoglobin A1c 5.8 * B12 deficiency * Hypertension * Hyperlipidemia Plan: * Patient's delirium was felt to be related to acute renal failure. His delirium has improved. Renal functions also improved. Renally excreted med ications needs to be adjusted for his GFR. Does off Vimpat was decreased from 200 mg twice a day to Vimpat 150 mg twice a day. * B12 298, which is borderline, folic acid pending and methylmalonic acid pending. We will start B12 injection for 3 days, then oral replacement. * Treatment of acute renal failure as per IM * Patient's ammonia level is fluctuating, which is felt to be related to Depakote. His most recent ammonia is 34. Continue Depakote at a lower dose of 250 mg 4 times a day (previously on 500 mg 4 times a day). I would avoid abrupt discontinuation of Depakote. * Seizure precautions. * Psychiatry following the patient. * We will follow clinically.
--- NOTE | 2020-11-07 11:01 | PN ---
PROGRESS NOTE DATE OF DICTATION: 11/07/2020 Patient is a 55-year-old white male admitted to the hospital with altered mental status and elevated ammonia level. He was noted to have ammonia of 64. He was started on oral lactulose, and today ammonia is down to 24. He has been having 1 or 2 bowel movements daily. He denies any abdominal pain. He reports no nausea or vomiting. PHYSICAL EXAMINATION: He appears comfortable. No apparent distress. VITAL SIGNS: Vital signs are stable. Blood pressure is 120/71, pulse rate 51, temperature 98.2. HEENT EXAMINATION: Unremarkable. Conjunctivae pink. Sclerae anicteric. Oral cavity no lesions. NECK: No JVD. No lymph node enlargement. CHEST: Clear to auscultation. HEART: Regular rate and rhythm. ABDOMEN: Soft. Bowel sounds are positive. No organomegaly. EXTREMITIES: No pedal edema. NEURO: He is awake, oriented to name and place and time. LABS: Labs done from today: Basic metabolic panel is within normal limits. BUN is 43, creatinine 1.40 and ammonia level is 24. IMPRESSION: 1. Altered mental status/increased ammonia level; possible hepatic encephalopathy, but patient has no chronic liver disease. Given the longstanding history of diabetes mellitus, possibility of occult liver disease cannot be excluded. Hyperammonemia also could be medication-related. In any event, ammonia level has normalized. The patient's mental status has normalized and he is maintained on lactulose and doing well. 2. History of seizure disorder. 3. History of multiple sclerosis. RECOMMENDATIONS: 1. Continue with oral lactulose and titrate so that he has 3-4 bowel movements daily. 2. Monitor ammonia. 3. Continue with symptomatic and supportive care. 4. Will sign off at this time. Please call us if needed. No GI Service available from tomorrow. Thank you for this consultation. MMODL / IJN: [id number] /
[2020-11-07 11:24] LABS: Glucose,Whole Blood 182 mg/dL (75-99)
[2020-11-07] MEDS: ATORVASTATIN 10 MG TAB PO SCH (12:15)
--- NOTE | 2020-11-07 12:38 | CONS ---
CONSULTATION DATE OF SERVICE: 11/06/2020 PURPOSE FOR CONSULTATION: Evaluate for altered mental status and hyperactivity. INTERVAL HISTORY: I saw the patient in his room and met with him and his . Most of the information was provided by his . I also reviewed his progress with Nursing. The patient has been doing fair. He continues with oral Ativan, which has been increased to 2 mg four times a day. In addition, he has been receiving IV Ativan as well. Nursing reports that his activity level has quieted at least to some extent. His notes that he continues to be fairly confused, even though at times he can respond appropriately to basic orientation questions. She notes that many times when she might give him some guidance that he responds in a very disorganized way. She notes, as has been previously documented, that he had problems going back about a year and a half ago; he began developing psychomotor restlessness. He would sit down in a chair and then stand up. He would roam in a house in a very intense manner almost non-stop. He seemed to show fairly good response to the start of the Zyprexa. He was on 5 mg in the morning, 10 mg in the evening. She noted that generally he did fairly well for over a year. He started having problems and there was concern about the higher dose of Zyprexa, so the dose was reduced. She notes that what has changed in the last few weeks is that the confusion is a new issue for him that he had not shown previously. She notes that prior to coming into the hospital, he got back into a very agitated state of constant motor restlessness, much as he was having a year and a half ago. She notes that his moving about at home was in a very intense manner. As noted above, Nursing indicates that, especially with the increase in Ativan, his restlessness has diminished at least to a moderate degree. MENTAL STATUS EXAM: When I talked to the patient he was sitting in the chair in the corner of his room. He seemed to pay some attention to the conversation, though at times he appeared disconnected. There were times I asked questions that he did not show any reaction or response to at all. He was just a little restless in his chair, where he would change his position. He could sit for a period of a few minutes without much movement, then he might change position again. He did not appear to be significantly distressed. At one point he did stand up briefly, mainly to sit down in a different position in his chair. He understood that he was in the hospital and seemed to have at least some sense of his current situation. ASSESSMENT: I will continue the current treatment plan. 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 At this point, the most reasonable treatment option is to continue Ativan. There might be consideration for further increase in dosing. The considerations include that on the one hand Ativan may add to cognitive difficulties. On the other hand, if issues are related primarily to catatonia, the increases in Ativan may actually improve cognition and would be an important symptom to follow. I will continue to provide psychiatric followup. MMFATEMEHL / IJN: [id number] /
--- NOTE | 2020-11-07 15:09 | P.PN ---
Subjective Progress Note Date: 11/07/20 11/07/2020: This is a Tele-neurology follow-up performed on the patient today on 11/07/2020. Tele-medicine performed from 11:10 AM to 11:18 AM. Patient's daughter was also present. Patient apparently had 1 pseudoseizure early this morning, which was short lasting as well. Movement disorder seems to have resolved. Patient states that he feels some weakness in the left side. Headache involving back of the head, slight dizziness, no chest pain. His daughter states that she is walking steadily to the bathroom. Objective - Vital Signs Vital signs: Vital Signs Temp 98.2 F 11/07/20 07:53 Pulse 51 L 11/07/20 07:53 Resp 18 11/07/20 07:53 BP 120/71 11/07/20 07:53 Pulse Ox 92 L 11/07/20 07:53 Intake & Output 11/06/20 11/07/20 11/07/20 18:59 06:59 18:59 Other: Voiding Method External Catheter External Catheter # Voids 2 0 # Bowel Movements 0 - Exam Patient is alert and awake, sitting comfortably in the recliner. Patient was fully oriented to day, states it is October and the year is 2020. He knows that he is in [facility] in [place]. He knows his date of . He knows name of the current president Ky Dixon. Speech and language functions appears normal. I did not see any akathisia, or excessive movement. Muscle strength is equal. Cranial nerves are normal. - Labs CBC & Chem 7: 11/07/20 04:59 11/07/20 04:59 Labs: Abnormal Lab Results - Last 24 Hours (Table) 11/06/20 11/06/20 11/06/20 Range/Units 11:24 16:23 21:48 RBC (4.40-5.60) X 10*6/uL Hgb (13.0-17.0) g/dL Hct (39.6-50.0) % MCV (80.0-97.0) fL MCH (27.0-32.0) pg Immature Gran # (0.00-0.04) X 10*3/uL Lymphocytes # (0.90-5.00) X 10*3/uL Monocytes # (0.20-1.00) X 10*3/uL Carbon Dioxide (22-30) mmol/L BUN (9-20) mg/dL Creatinine (0.66-1.25) mg/dL Glucose (74-99) mg/dL POC Glucose (mg/dL) 199 H 144 H 123 H (75-99) mg/dL 11/07/20 11/07/20 11/07/20 Range/Units 04:59 04:59 07:13 RBC 3.54 L (4.40-5.60) X 10*6/uL Hgb 11.6 L (13.0-17.0) g/dL Hct 35.0 L (39.6-50.0) % MCV 98.9 H (80.0-97.0) fL MCH 32.8 H (27.0-32.0) pg Immature Gran # 0.24 H (0.00-0.04) X 10*3/uL Lymphocytes # 0.16 L (0.90-5.00) X 10*3/uL Monocytes # 1.12 H (0.20-1.00) X 10*3/uL Carbon Dioxide 21 L (22-30) mmol/L BUN 43 H (9-20) mg/dL Creatinine 1.40 H (0.66-1.25) mg/dL Glucose 173 H (74-99) mg/dL POC Glucose (mg/dL) 155 H (75-99) mg/dL Assessment and Plan Assessment: * Altered mental status, likely due to acute delirium versus some component of underlying psychiatric condition. * Movement disorder possible akathisia, now seems to have resolved. No evidence of extrapyramidal side effects. * Acute renal failure, improving. * Multiple sclerosis, currently in remission. * History of seizure disorder and pseudoseizures, currently in remission. * ?Diabetes, last hemoglobin A1c 5.8 * B12 deficiency * Hypertension * Hyperlipidemia Plan: * Patient's delirium was felt to be related to acute renal failure. His delirium has improved. Renal functions also improved. Renally excreted medications needs to be adjusted for his GFR. Dose of Vimpat was decreased from 200 mg twice a day to Vimpat 150 mg twice a day. When the renal functions returns back to normal, may increase Vimpat back to 200 mg twice a day. * Patient's seizure frequency is usually 1 pseudoseizure a day. This is about has been happening for the last few days. In other words patient is stable from neurology standpoint. * B12 298, which is borderline, folic acid pending and methylmalonic acid pending. We will start B12 injection for 3 days, then oral replacement. * Treatment of acute renal failure as per IM. Patient's renal functions have improved. Current BUN 43, creatinine 1.40. * Due to hyperammonemia, Depakote has been decreased from 500 mg 4 times a day down to 250 mg 4 times a day. Patient is tolerating medication taper down well. We will consolidate Depakote dose to 500 mg twice a day. * Seizure precautions. * Psychiatry following the patient. * Neurologically clear for discharge. Follow up with patient's outside neurologist in 1-2 week. Please reconsult neurology if any concerns.
[2020-11-07 16:26] LABS: Glucose,Whole Blood 111 mg/dL (75-99)
[2020-11-07 19:56] LABS: Glucose,Whole Blood 195 mg/dL (75-99)
[2020-11-07] MEDS: DIVALPROEX ER 500 MG TAB.ER.24H PO SCH (21:22)
[2020-11-07] MEDS: CYANOCOBALAMIN 1,000 MCG/ML 1 ML VIAL IM SCH (21:23)
--- NOTE | 2020-11-07 22:12 | CONS ---
CONSULTATION DATE OF SERVICE: 11/07/2020 PURPOSE FOR CONSULTATION: Evaluate for altered mental status and hyperactivity. INTERVAL HISTORY: I saw the patient today. His was with him, as was the nurse. Overall, things seem about the same according to the report of nurse and . It is noteworthy that the patient himself was not able to provide any helpful information. According to both, the patient is doing about the same today as he was yesterday. He still has a moderate degree of restlessness, though generally can be supported to stay in his chair in his room. His notes that confusion that he is having today remains about the same as yesterday. According to Nursing, when he receives Ativan he may drift off to sleep for a brief period time, though he wakes up within about 15 or 20 minutes and then is up and alert. He will be reasonably aware of things going on around him. He still makes odd statements. His noted that he seems to be showing a little more anger today, focused on believing that he should be going home. It is noted that his valproic acid level on 11/04 was 81. It is noted that on 11/04 his Vimpat was reduced due to concerns regarding acute renal failure. In addition, Depakote was reduced relating to elevated ammonia level. He had been on Depakote 500 mg 4 times a day and now is on Depakote 250 mg 4 times a day. Vimpat was reduced from 200 mg twice a day down to 150 mg twice a day. The patient continues on Ativan 2 mg q.6 hours. In addition, he has an order for Ativan 1 mg IV q.6 hours p.r.n. The nurse indicates that she has been giving the p.r.n. IV Ativan on a regular basis due to his continued restlessness. In talking with the patient, he would respond to questions. He paid attention to my presence there and things being discussed. Typically he would make comments that were somewhat related to things being discussed, though his statements were brief, more of a random nature, and pretty much disconnected from the immediate issues. He smiled most of the time. He did not appear too restless. At one point he got out of bed and stood up and then lay down on the bed again. Mostly he sat with his head up in bed. He paid at least some attention to the conversation. He did not appear to be distressed in any way. ASSESSMENT: I would continue the diagnosis of acute delirium. He has psychiatric issues of restlessness and some mood-related issues that in part likely are impacted to a fair degree from his MS that has been active within the last few weeks. 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 He currently is on a total of 12 mg of Ativan a day. He appears to tolerate the Ativan reasonably well. He is not showing significant signs of sedation from the Ativan; in fact, he sleeps very little if at all during the night and seems to take cat naps now and then through the day, though for the most part he remains awake and quite active from a physical standpoint. I reviewed issues with the patient's . At this point I will increase Ativan to 3 mg 4 times a day. There is consideration that he may be undertreated in regard to a diagnosis of catatonia. We will watch for signs of sedation. In general, catatonic excitement responds well to Ativan without inducing sedation even at high doses in the range up to 20 mg a day, in some cases higher. If he does show sedation from Ativan without much improvement in terms of restlessness, we might need to consider an alternative diagnosis. One possibility which I would put next in line would be bipolar affective disorder, manic phase. One question would be the anger that he has been showing of late could relate to the reduction in Depakote. In regard to a potential diagnosis of bipolar disorder, if it appears that that would be a reasonable alternative diagnosis, there might be consideration for reducing Ativan and starting an antipsychotic medication specific for bipolar alin. My first choice would be Zyprexa, which has the least risk in regard to inducing akathisia, which could complicate some of the movement issues. It was a consideration on admission that in fact he might be showing akathisia, though according to his , he seemed to tolerate a moderate dose of Zyprexa of 15 mg a day without showing the movement disorder. Given the renal issues he is having, lithium would not be indicated. I advised the that we would monitor for the next 24 hours and see if there is any change with the increase in Ativan. There might be consideration for further increases as well if the diagnosis of catatonic excitement seems to be the most reasonable option. Dr. Morgan will follow up tomorrow. MMODL / IJN: [id number] /
[2020-11-08] MEDS: LORazepam 2 MG/ML INJ IV PRN ×2 (05:14→10:56)
[2020-11-08 06:50] LABS: Glucose,Whole Blood 171 mg/dL (75-99)
[2020-11-08] MEDS: ATORVASTATIN 10 MG TAB PO SCH (07:34)
[2020-11-08] MEDS: LORazepam 1 MG TAB PO SCH ×4 (07:34→21:47)
[2020-11-08] MEDS: SERTRALINE 100 MG TAB PO SCH (07:34)
[2020-11-08] MEDS: IBUPROFEN 800 MG TAB PO SCH ×3 (07:34→21:46)
[2020-11-08] MEDS: ASPIRIN 81 MG PO SCH (07:34)
[2020-11-08] MEDS: PROPRANOLOL 20 MG TAB PO SCH ×2 (07:35→21:47)
[2020-11-08] MEDS: BACLOFEN 10 MG TAB PO SCH ×4 (07:35→21:46)
[2020-11-08] MEDS: LACOSAMIDE 150 MG TABLET PO SCH ×2 (07:35→21:47)
[2020-11-08] MEDS: INSULIN ASPART (NovoLOG) 100 UNIT/ML VIAL SQ SCH ×4 (07:35→22:56)
[2020-11-08] MEDS: DIVALPROEX ER 500 MG TAB.ER.24H PO SCH ×2 (07:36→21:47)
[2020-11-08] MEDS: LACTULOSE 20 GM/30 ML CUP PO SCH ×3 (07:36→22:56)
[2020-11-08] MEDS: LISINOPRIL-HCTZ 10-12.5 MG 1 EACH TAB PO SCH (07:36)
--- NOTE | 2020-11-08 10:58 | P.PN ---
Progress Note - Text Progress Note Date: 11/08/20 Interval History: Patient was seen resting in bed and sitting upright. Present in the room is the patient's Jessica. Currently the patient is stating he is doing well aside from elevated anxiety. He is otherwise alert and oriented to person, place, who the president is, and who is present in the room. He is not oriented to the year, stating it is 2010. He is currently not reporting any suicidal or homicidal ideation, intention, and/or plan. He is not reporting any auditory or visual hallucinations. He denies any paranoia or other delusions. His expresses concern that the patient has been experiencing some "hallucinations." She states he is often inquiring where his children are and believes they are in the hospital with him. She also states he becomes "fixated" on things and that he would become irritable and angry when fixated. Despite the significant dose of ativan, the patient does not display and respiratory depression excessive sedation. Akasthisia movements have decreased significantly and are currently not present. expresses concern that he is not stable due to his anger and "hallucinations." Patient's also expresses he is restless at night and does not sleep. Mental Status Exam: General Appearance: Patient appears to be stated age is alert, directable, and cooperative. He appears in no acute distress and is pleasant and polite. Behavior: Patient is sitting upright in bed without any agitated behavior. Psychomotor activity appears normal today. Eye contact is appropriate. Speech: Patient's speech is spontaneous, with normal rate, tone, and volume. Mood/Affect: Mood is "Doing okay." Affect appears to euthymic to bright at times. Suicidality/Homicidality: Patient denies any suicidal or homicidal ideation, intention, and/or plan. Perceptions: No perceptual abnormalities are endorsed by patient. ( expresses that they are.) Though content/process: No bizarre or delusional thought content is endorsed. Memory and concentration: Patient is alert and oriented in all spheres except for date. Concentration appears to be grossly intact. Judgment and insight: Improving. Vital Signs Temp 97.5 F L 11/08/20 07:42 Pulse 63 11/08/20 07:42 Resp 18 11/08/20 07:42 BP 129/76 11/08/20 07:42 Pulse Ox 93 L 11/08/20 07:42 Intake & Output 11/07/20 11/08/20 11/08/20 18:59 06:59 18:59 Intake Total 280 480 Balance 280 480 Intake: Oral 280 480 Other: Voiding Method Toilet # Voids 2 2 Laboratory Results - Last 24 Hours 11/05/20 11/07/20 11/07/20 06:34 11:23 16:25 POC Glucose (mg/dL) 182 H 111 H POC Glu Temperature Inspector ID Isabelle Zhou Leah Ammonia Folate Cancelled 11/07/20 11/08/20 11/08/20 19:54 05:32 06:49 POC Glucose (mg/dL) 195 H 171 H POC Glu Temperature Inspector ID Sondra Serrato Ethan Ammonia <9 Folate Assessment: Altered mental status, unknown etiology - acute delirum vs psychiatric disorder; improving - Patient is alert and oriented today and responds appropriately to questioning. He appears to be tolerating his medication well. Although not responding to internal stimuli, his reports he does appear to be angry and confused. Unspecified movement disorder; resolved Working diagnosis of Bipolar Affective Disorder, with catatonia -Patient is tolerating high doses of ativan well with significant improvement in his symptoms. The decrease in his depakote may coincide with increased affective symptoms if bipolar disorder is the underlying condition. Plan: -At this time patient DOES NOT meet criteria for inpatient psychiatric admission. Patient appears to be improving significantly and is currently not presenting with psychotic symptoms when evaluated by this provider. Patient case discussed with his nurse who also does not have report of internal stimuli. We will continue to evaluate patient requires inpatient psychiatric admission. If patient continues to present as is today or with improvement, we will consider psychiatric clearance for discharge tomorrow. -Delirium precautions recommended with patient including - avoiding use of narcotics and PRINCIPAL ARCHITECT sedatives, limit anticholinergic medications when possible, frequent re-orientation, minimize use of restraints, open window shades during the day and close them at night -Would recommend the following medication changes/additions: Continue Ativan 3 mg QID for excited catatonia Continue Depakote 500 mg twice daily for seizure disorder / mood stabilization Will augment treatment with low dose antipsychotic - Seroquel at bedtime for insomnia as per 's concern and for management of reported psychosis. Start Seroquel 50 mg at bedtime for psychosis/mood stabilization/insomnia -Will continue to follow along -Patient's case discussed with the patient's nurse. We will monitor closely for staff observations regarding psychotic and mood symptoms that the does endorse.
[2020-11-08 11:04] LABS: Glucose,Whole Blood 154 mg/dL (75-99)
[2020-11-08 14:05] LABS: Valproic Acid (Depakene) 41.4 ug/mL (50.0-100.0)
[2020-11-08 14:19] LABS: African American GFR (CKD) 56.2 (60.0-200.0); Albumin 4.5 g/dL (3.80-4.90); Albumin/Globulin Ratio 2.14 (1.60-3.17); Anion Gap 11.5 mmol/L (4.00-12.00); BUN/Creat Ratio 26.88 Ratio (12.00-20.00); Calcium 9.5 mg/dL (8.7-10.3); Carbon Dioxide 25.5 mmol/L (21.6-31.8); Globulin 2.1 g/dL (1.6-3.3); Non-African American GFR(CKD) 48.5 (60.0-200.0); Potassium 3.9 mmol/L (3.5-5.5); Total Bilirubin 0.4 mg/dL (0.2-1.2); Total Protein 6.6 g/dL (6.2-8.2)
[2020-11-08 14:34] LABS: HGB 11.9 g/dL (13.0-17.0); MCH 33.1 pg (27.0-32.0); MCHC 33.1 g/dL (32.0-37.0); MCV 100.3 fL (80.0-97.0); Mean Platelet Volume 10.5 fL (9.5-12.2); Platelet Count 208 X 10*3/uL (140-440); RBC 3.59 X 10*6/uL (4.40-5.60); RDW 12.7 % (11.5-14.5); WBC 5.14 X 10*3/uL (4.50-10.00)
[2020-11-08 15:52] LABS: Basophils # (M) 0 X 10*3/uL (0.00-0.10); Eosinophils # (M) 0.15 X 10*3/uL (0.04-0.35); Monocytes # (M) 0.36 X 10*3/uL (0.20-1.00); Myelocytes % 2 % (0-0); Neutrophils # (M) 4.42 X 10*3/uL (2.00-8.90); Neutrophils % (M) 86 %
[2020-11-08 17:04] LABS: Glucose,Whole Blood 174 mg/dL (75-99)
--- NOTE | 2020-11-08 18:56 | PN ---
PROGRESS NOTE DATE OF SERVICE: 11/07/2020 The patient is improved with Ativan 2 mg q.i.d. He is able to calm down. He has less dyskinetic involuntary movements. He is alert and oriented x3 today. Cardiovascular: S1, S2. Lungs clear. GI soft. Hematology: Negative Homans. Await for Psychiatry to come back with their recommendations. Neurology does not feel like he is having MS exacerbation. Possible discharge home tomorrow. PLAN: Continue current treatment. Await for psych and neuro recommendations prior to discharge. MMODL / IJN: [id number] /
[2020-11-08] MEDS ORDERED: QUEtiapine 50 MG TAB PO SCH (21:00)
[2020-11-08] MEDS: CYANOCOBALAMIN 1,000 MCG/ML 1 ML VIAL IM SCH (22:56)
[2020-11-09] MEDS: LORazepam 2 MG/ML INJ IV PRN ×2 (02:12→09:23)
[2020-11-09 06:54] LABS: Glucose,Whole Blood 162 mg/dL (75-99)
[2020-11-09] MEDS: IBUPROFEN 800 MG TAB PO SCH ×3 (07:30→21:12)
[2020-11-09] MEDS: LACOSAMIDE 150 MG TABLET PO SCH ×2 (07:30→21:12)
[2020-11-09] MEDS: ASPIRIN 81 MG PO SCH (07:31)
[2020-11-09] MEDS: PROPRANOLOL 20 MG TAB PO SCH ×2 (07:31→21:13)
[2020-11-09] MEDS: BACLOFEN 10 MG TAB PO SCH ×4 (07:31→21:12)
[2020-11-09] MEDS: SERTRALINE 100 MG TAB PO SCH (07:31)
[2020-11-09] MEDS: DIVALPROEX ER 500 MG TAB.ER.24H PO SCH ×2 (07:32→21:13)
[2020-11-09] MEDS: LISINOPRIL-HCTZ 10-12.5 MG 1 EACH TAB PO SCH (07:32)
[2020-11-09] MEDS: LORazepam 1 MG TAB PO SCH ×4 (07:33→21:30)
[2020-11-09] MEDS: INSULIN ASPART (NovoLOG) 100 UNIT/ML VIAL SQ SCH ×4 (07:33→21:14)
[2020-11-09] MEDS: LACTULOSE 20 GM/30 ML CUP PO SCH ×3 (07:33→21:19)
[2020-11-09 11:26] LABS: Glucose,Whole Blood 164 mg/dL (75-99)
[2020-11-09] MEDS: ATORVASTATIN 10 MG TAB PO SCH (12:42)
--- NOTE | 2020-11-09 13:43 | P.PN ---
Progress Note - Text Progress Note Date: 11/09/20 Interval History: Patient was seen in bed displaying elevated psychomotor activity. He is not responding to questioning appropriately at this time. Present at bedside is the patient's . She reports that the patient has been continuously moving and pacing. He has also been repetitive and often echoing what was said. He also appears to be disoriented. He did have a noted fall this morning. Patient's states that this fall is similar to falls he has had previously. She continues to maintain that the patient appears to endorse psychotic symptoms. She notes that he has been speaking to people who were not present. He did receive seroquel last night but was noted to be unable to sleep. This provider discussed with the patient's that a higher level of care may be needed as the patient has a complicated neurological history and has negative reactions to prescribed medications. He will need further evaluation that is not available for our hospital. As per patient's , his outpatient neurologist has suggested evaluation at the [facility]. Mental Status Exam: General Appearance: Patient appears to be stated age is not alert or directable. He appears disheveled. Behavior: Patient is constantly pacing and appears to be restless and unable to lie still. Psychomotor agitation is evident. Speech: Patient's speech is non spontaneous and minimal. Reported history of echolalia. Mood/Affect: Mood is unable to be assessed. Affect appears malaised. Suicidality/Homicidality: Unable to assess. Perceptions: Unable to assess. As per , he appears to respond to internal stimuli. Though content/process: Unable to assess. Memory and concentration: Currently not alert or oriented. Judgment and insight: Poor Vital Signs Temp 98.8 F 11/09/20 08:00 Pulse 72 11/09/20 12:29 Resp 20 11/09/20 12:29 BP 122/78 11/09/20 12:29 Pulse Ox 94 L 11/09/20 12:29 Intake & Output 11/08/20 11/09/20 11/09/20 18:59 06:59 18:59 Intake Total 240 Balance 240 Intake: Oral 240 Other: # Voids 3 2 # Bowel Movements 1 Assessment: Altered mental status, unknown etiology - acute delirum vs psychiatric disorder Unspecified movement disorder -Possible akasthisia secondary to seroquel although unlikely with low dose of seroquel such as what was given. Working diagnosis of Bipolar Affective Disorder, with catatonia -Patient experienced a fall therefore there is concern about increasing ativan. Plan: -At this time, we recommend a transfer to the [facility] for further Neuropsychiatric evaluation and treatment. Initially the patient displayed a favorable response to the addition of ativan but did experience a fall, causing concern for this medication. He does present with echolalia which may be present in catatonia. Excited catatonia is a differential diagnosis, but due to the fact that the patient is experiencing falls, concern for further increase in ativan. Patient may benefit from ECT. Would recommend transfer to [facility] for further evaluation and management. -Delirium precautions recommended with patient including - avoiding use of narcotics and [employer]NF[employer]CEMENT INSTRUCTOR sedatives, limit anticholinergic medications when possible, frequent re-orientation, minimize use of restraints, open window shades during the day and close them at night -Would recommend the following medication changes/additions: Continue Ativan 3 mg QID for excited catatonia Continue Depakote 500 mg twice daily for seizure disorder / mood stabilization Discontinue Seroquel -Will continue to follow along while patient is admitted to our hospital. -Patient's case discussed with the patient's nurse.
--- NOTE | 2020-11-09 14:04 | PN ---
PROGRESS NOTE DATE OF SERVICE: 11/08/2020 This is a 55-year-old white male who has had renal failure, altered mental status. Neurology increased his Ativan to 3 mg 4 times a day. He has been hallucinating worse today per , although he has less movements and last akithisia and is answering questions more appropriately. Vital signs stable. Afebrile. Cardiovascular: S1, S2. Lungs clear. GI soft. Extremities 2+ edema. Creatinine is down to 1.4 from 2.4. ASSESSMENT: 1. Altered mental status. 2. Prerenal renal failure, improving. 3. Psychiatric, neurology conditions with apparent brain worsening and possibly akithisia, needs to be addressed and imbalance and possibly put back on his ribazole or Zyprexa for psychiatric conditions. Please see further orders. MMODL / IJN: [id number] /
[2020-11-09] MEDS: DEXTROSE 5%-0.9% NACL 1,000 ML IV SCH (18:07)
[2020-11-09 18:21] LABS: Glucose,Whole Blood 150 mg/dL (75-99)
--- NOTE | 2020-11-09 18:55 | CDI ---
Documentation Clarification Form Date: 11/09/2020 06:44:30 PM From: Jacqueline Allen RN, CCDS Admit Date: 11/04/2020 11:17:00 AM Patient Name: Alonzo Taylor Visit Number: [id number] ATTENTION: The Clinical Documentation Specialists (CDI) and [facility] Coding Staff appreciate your assistance in clarifying documentation. Please respond to the clarification below the line at the bottom and electronically sign. The CDI & [facility] Coding staff will review the response and follow-up if needed. Please note: Queries are made part of the Legal Health Record. If you have any questions, please contact the author of this message via ITS. Dr. Bruce Khan Unspecified CKD is documented in the 11/05 GI Consult. Additional clarification regarding the stage of CKD is requested. History/Risk Factors: 05/11/20 Patients Historical BUN/CR/GFR: 35/1.2/69.1 Clinical Indicators: 11/05 GI: Consult: "He is noted to have chronic kidney disease and admission BUN of 79, creatinine 2.43." 11/04-11/09 Current BUN: 79/58/43 CR: 2.43/1.5/1.4/1.6 GFR: 29/52.4/57/48.5 Treatment: 11/09 D5.45@75cc/hr. Zestoretic 12/21.5- 2 tabs Po Daily 11/04 0.9% NS 3L IVF Bolus Please clarify the stage of the CKD, if known: [ ] CKD Stage 2 (GFR 60-89) [ ] CKD Stage 3 (GFR 30-59) [ ] CKD Stage 3a (GFR 45-59) [ ] CKD Stage 3b (GFR 30-44) [ ] CKD Stage 4 (GFR 15-29) [ ] Other, please specify [ ] Unable to determine (Template last revised: April 2020) MTDD
[2020-11-09 20:32] LABS: Glucose,Whole Blood 162 mg/dL (75-99)
[2020-11-10 07:13] LABS: Glucose,Whole Blood 168 mg/dL (75-99)
[2020-11-10] MEDS: LORazepam 1 MG TAB PO SCH ×4 (07:43→21:03)
[2020-11-10] MEDS: LACTULOSE 20 GM/30 ML CUP PO SCH ×3 (07:43→21:04)
[2020-11-10] MEDS: ASPIRIN 81 MG PO SCH (07:44)
[2020-11-10] MEDS: BACLOFEN 10 MG TAB PO SCH ×4 (07:44→21:08)
[2020-11-10] MEDS: DIVALPROEX ER 500 MG TAB.ER.24H PO SCH ×2 (07:44→21:05)
[2020-11-10] MEDS: LACOSAMIDE 150 MG TABLET PO SCH ×2 (07:44→21:03)
[2020-11-10] MEDS: IBUPROFEN 800 MG TAB PO SCH ×4 (07:44→21:03)
[2020-11-10] MEDS: PROPRANOLOL 20 MG TAB PO SCH ×2 (07:45→21:05)
[2020-11-10] MEDS: INSULIN ASPART (NovoLOG) 100 UNIT/ML VIAL SQ SCH ×4 (07:45→21:05)
[2020-11-10] MEDS: SERTRALINE 100 MG TAB PO SCH (07:45)
[2020-11-10] MEDS: LISINOPRIL-HCTZ 10-12.5 MG 1 EACH TAB PO SCH (07:46)
[2020-11-10 11:42] LABS: Glucose,Whole Blood 170 mg/dL (75-99)
[2020-11-10] MEDS: ATORVASTATIN 10 MG TAB PO SCH (11:49)
[2020-11-10 12:59] VITALS: BMI 32.3
--- NOTE | 2020-11-10 13:21 | P.PN ---
Progress Note - Text Progress Note Date: 11/10/20 Interval History: Patient was seen in bed sleeping and difficult to arouse for the psychiatric i adnrea. As per discussion with the patient's at bedside, the patient displayed mild improvement with the discontinuation of seroquel. She reports that he continues to be at different extremes from pacing constantly to sleeping for an hour. She reports when he is awake, he continues to be repetitive in his speech, his actions (stereotypic movements with his hands), and is constantly pacing. He does not appears to alert and oriented when awake and is often noted to be responding to internal stimuli. Due to his history of falls and excessive somnolence his is concerned for increasing the ativan at this time. This provider discussed at length that the next option for treatment is ECT as there is no other indicated treatment for catatonia. Mental Status Exam: General Appearance: Patient appears to be stated age and is currently not alert. Behavior: Patient is currently sleeping. Speech: Patient's speech cannot be assessed at this time. Mood/Affect: Mood is unable to be assessed. Patient is somnolent. Suicidality/Homicidality: Unable to assess. Perceptions: Unable to assess. Though content/process: Unable to assess. Memory and concentration: Unable to assess. Judgment and insight: Unable to assess. Vital Signs Temp 97.4 F L 11/10/20 08:00 Pulse 62 11/10/20 08:00 Resp 18 11/10/20 08:00 BP 149/76 11/10/20 08:00 Pulse Ox 96 11/10/20 08:00 Intake & Output 11/09/20 11/10/20 11/10/20 18:59 06:59 18:59 Intake Total 1200 Balance 1200 Weight 107.955 kg Intake: Intake, IV Titration 900 Amount Dextrose 5%-0.9% NaCl 1, 900 000 ml @ 75 mls/hr IV . [id number] [facility] Rx#:[id number] Oral 300 Other: Voiding Method Toilet # Voids 2 3 Laboratory Results - Last 24 Hours 11/09/20 11/09/20 11/10/20 18:18 20:31 07:11 POC Glucose (mg/dL) 150 H 162 H 168 H POC Glu Minister Assistant Ani Sapp Jamie Varty, Amanda 11/10/20 11:41 POC Glucose (mg/dL) 170 H POC Glu Minister Assistant ID Lavern Vila Assessment: Altered mental status, unknown etiology - acute delirum vs psychiatric disorder Unspecified movement disorder -Possible akasthisia, resolving; offending agent of seroquel was discontinued - Movement disorder can be secondary to excited catatonia. Working diagnosis of Bipolar Affective Disorder, with catatonia -Patient experienced a fall therefore there is concern about increasing ativan. Patient has significant symptoms consistent with catatonia including a response to ativan, hyperkinesis of the upper and lower extremities, echolalia, and restlessness. Plan: -At this time, we recommend a [facility]ulsive therapy. -Delirium precautions recommended with patient including - avoiding use of narcotics and GERIATRIC NURSING ASSISTANT sedatives, limit anticholinergic medications when possible, frequent re-orientation, minimize use of restraints, open window shades during the day and close them at night -Would recommend the following medication changes/additions: Continue Ativan 3 mg QID for excited catatonia Continue Depakote 500 mg twice daily for seizure disorder / mood stabilization -Will continue to follow along while patient is admitted to our hospital. -Patient's case discussed with the patient's nurse.
[2020-11-10 17:10] LABS: Glucose,Whole Blood 160 mg/dL (75-99)
--- NOTE | 2020-11-10 17:13 | PN ---
PROGRESS NOTE 55-year-old white male who has had mild improvement with the discontinuation of Seroquel. He had a fall yesterday with no apparent injury. He continues to be repetitive in his speech. Psychiatry he has got him on Ativan 3 mg q.i.d. and wants him to have ECT. We are trying to get him transferred down to [place]. Blood pressure 140s/70s, respiratory 16-18, pulse 50s 60s, temperature 97.4, O2 96. Cardiovascular S1, S2. Lungs clear. GI soft. Hematology: Negative Homans. ASSESSMENT: 1. Akithisia. 2. Catatonia. 3. Affective disorder. 4. Anxiety. 5. Organic brain disorder. 6. Altered mental status. Continue to try to get him transferred to the [facility]. Wait for further offerings by Neurology as well as Psychiatry. Elevated ammonia levels have been stable with less Depakote. Prognosis guarded. MMODL / IJN: [id number] /
[2020-11-10 20:19] LABS: Glucose,Whole Blood 185 mg/dL (75-99)
[2020-11-10] MEDS: DEXTROSE 5%-0.9% NACL 1,000 ML IV SCH (21:34)
[2020-11-11 07:54] LABS: Glucose,Whole Blood 184 mg/dL (75-99)
[2020-11-11] MEDS: LORazepam 1 MG TAB PO SCH ×4 (07:58→21:27)
[2020-11-11] MEDS: BACLOFEN 10 MG TAB PO SCH ×4 (07:58→21:28)
[2020-11-11] MEDS: ASPIRIN 81 MG PO SCH (07:58)
[2020-11-11] MEDS: IBUPROFEN 800 MG TAB PO SCH ×3 (07:59→21:29)
[2020-11-11] MEDS: SERTRALINE 100 MG TAB PO SCH (07:59)
[2020-11-11] MEDS: LACOSAMIDE 150 MG TABLET PO SCH ×2 (07:59→21:29)
[2020-11-11] MEDS: INSULIN ASPART (NovoLOG) 100 UNIT/ML VIAL SQ SCH ×4 (07:59→21:34)
[2020-11-11] MEDS: LACTULOSE 20 GM/30 ML CUP PO SCH ×3 (08:00→17:43)
[2020-11-11] MEDS: DIVALPROEX ER 500 MG TAB.ER.24H PO SCH ×2 (08:00→21:29)
[2020-11-11] MEDS: LISINOPRIL-HCTZ 10-12.5 MG 1 EACH TAB PO SCH (08:00)
[2020-11-11] MEDS: PROPRANOLOL 20 MG TAB PO SCH ×2 (08:01→21:28)
[2020-11-11 08:09] LABS: Glucose,Whole Blood 199 mg/dL (75-99)
[2020-11-11 12:06] LABS: Glucose,Whole Blood 134 mg/dL (75-99)
--- NOTE | 2020-11-11 13:14 | P.PN ---
Progress Note - Text Progress Note Date: 11/11/20 Interval History: Patient was seen in bed but was unable to appropriately participate in the ps ychiatric interview. When asked direct questioning, the patient only replies with "Eddie Beltran." This is after this provider discussed with the patient's , the patient's previous treatment at [facility]. He is noted by his and by staff to continue to present as difficult to direct, very restless, waxing and waning cognition and at times responding to internal stimuli. He stared at his hands for quite some time during the interview and told his and this provider that he had a bag of tea in his hands despite nothing being present. He has been noted to have difficulty with sleep. Mental Status Exam: General Appearance: Patient appears to be stated age, is alert but not oriented. Behavior: Patient is displaying psychomotor agitation in upper and lower extremity. Speech: Patient's speech is repetitive and echolalic. Mood/Affect: Mood is "Eddie Beltran." Affect is malaised. Suicidality/Homicidality: Unable to assess. Perceptions: Unable to assess. Though content/process: Unable to assess. Memory and concentration: Unable to assess. Judgment and insight: Unable to assess. Poor Vital Signs Temp 98.4 F 11/11/20 08:00 Pulse 65 11/11/20 08:09 Resp 14 11/11/20 08:09 BP 156/91 11/11/20 08:00 Pulse Ox 93 L 11/11/20 08:00 Intake & Output 11/10/20 11/11/20 11/11/20 18:59 06:59 18:59 Intake Total 900 Balance 900 Weight 107.955 kg Intake: Intake, IV Titration 900 Amount Dextrose 5%-0.9% NaCl 1, 900 000 ml @ 75 mls/hr IV . [id number] [facility] Rx#:[id number] Other: Voiding Method Toilet Toilet # Voids 3 Laboratory Results - Last 24 Hours 11/10/20 11/10/20 11/11/20 17:09 20:18 07:50 POC Glucose (mg/dL) 160 H 185 H 184 H POC Glu Daylight Driller ID Lavern Vila Jamie Rowse, Kerrie 11/11/20 11/11/20 08:08 12:05 POC Glucose (mg/dL) 199 H 134 H POC Glu Daylight Driller ID Lavern Vila Amanda Assessment: Altered mental status, unknown etiology - acute delirum vs psychiatric disorder Unspecified movement disorder -Possible akasthisia, resolving; offending agent of seroquel was discontinued - Movement disorder can be secondary to excited catatonia. Working diagnosis of Bipolar Affective Disorder, with catatonia -Patient experienced a fall therefore there is concern about increasing ativan. Patient has significant symptoms consistent with catatonia including a response to ativan, hyperkinesis of the upper and lower extremities, echolalia, and restlessness. Plan: -At this time, we recommend a medical transfer. Patient is presenting with significant delirium vs psychotic disorder. He is neurologically and medically complicated with a history of MS, seizure disorder, and has a spinal stimulator in place. Noted acute kidney injury. He will require a facility that can further work him up for possible causes of altered mental status (MRI), manage his high dose of ativan, and have ECT available as an option. Consult Liaison Psychiatry and Neurology should be present at this facility to continue to evaluate and manage this patient. -Delirium precautions recommended with patient including - avoiding use of narcotics and LOSS CONTROL REPRESENTATIVE sedatives, limit anticholinergic medications when possible, frequent re-orientation, minimize use of restraints, open window shades during the day and close them at night -Would recommend the following medication changes/additions: We will increase ativan to 4 mg QID for excited catatonia Continue Depakote 500 mg twice daily for seizure disorder / mood stabilization -Will continue to follow along while patient is admitted to our hospital. -Patient's case discussed with the patient's nurse.
[2020-11-11] MEDS: ATORVASTATIN 10 MG TAB PO SCH (13:24)
[2020-11-11 14:20] LABS: ALT 19 U/L (4-49); AST 29 U/L (17-59); African American GFR (CKD) 62 (>60 ml/min/1.73 sqM); Albumin 4.1 g/dL (3.5-5.0); Albumin/Globulin Ratio 1.6; Alkaline Phosphatase 83 U/L (38-126); Anion Gap 13 mmol/L; Blood Urea Nitrogen 38 mg/dL (9-20); Calcium 9.5 mg/dL (8.4-10.2); Carbon Dioxide 21 mmol/L (22-30); Chloride 107 mmol/L (98-107); Globulin 2.5 g/dL; Glucose 276 mg/dL (74-99); Non-African American GFR(CKD) 54 (>60 ml/min/1.73 sqM); Potassium 3.9 mmol/L (3.5-5.1); Sodium 141 mmol/L (137-145); Total Bilirubin 0.4 mg/dL (0.2-1.3); Total Protein 6.6 g/dL (6.3-8.2)
[2020-11-11 14:21] VITALS: RESP 18
[2020-11-11 16:52] LABS: Glucose,Whole Blood 264 mg/dL (75-99)
--- NOTE | 2020-11-11 17:28 | PN ---
PROGRESS NOTE Chronic kidney disease stage 3. MMODL / IJN: [id number] /
[2020-11-11] MEDS ORDERED: OLANZapine 5 MG TAB PO SCH ×2 (17:30→21:00)
--- NOTE | 2020-11-11 18:09 | PN ---
PROGRESS NOTE 55-year-old white male who is not any better. Still has dystonic akinetic movements. Neurology increased his Ativan up to 4 mg 4 times a day for possible catatonia. Family is requesting MRI being done at [place]. I am going to order that per their request. He wants something to give him for sleeping. I am going to add something that he was on before. Olanzapine 5 mg now to help him sleep at night and monitor him. [facility] decided not to take him today. Going to have to have transfer to some other neurologic facility. He is sitting up in bed, answering some questions appropriately. Cardiovascular: S1, S2. Lungs clear. GI soft. Hematology negative Homans. ASSESSMENT: 1. 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 2. History of diabetes. 3. Hypertension. Continue current treatment. Await for Neurology recommendations versus transfer to a tertiary center. Continue current treatment of Ativan, add olanzapine at night and do an MRI of the brain per family's request. Wait for transfer. MMODL / IJN: [id number] /
[2020-11-11 19:53] VITALS: BP 106/58; PULSE 81; TEMP 98.6
[2020-11-11 21:33] LABS: Glucose,Whole Blood 154 mg/dL (75-99)
== END 2020-11-12 00:14 | DRG 683 ==
LOC: EC 08:36 → 4SSUR 11:17
PROVIDERS: ADMIT Family Medicine; ATTEND Family Medicine
DX: N17.9 Acute kidney failure, unspecified (principal); E72.20 Disorder of urea cycle metabolism, unspecified; J98.11 Atelectasis; E11.41 Type 2 diabetes mellitus with diabetic mononeuropathy; F06.1 Catatonic disorder due to known physiological condition; E11.22 Type 2 diabetes mellitus with diabetic chronic kidney disease; I13.10 Hypertensive heart and chronic kidney disease without heart failure, with stage 1 through stage 4 chronic kidney disease, or unspecified chronic kidney disease; K31.84 Gastroparesis; E11.43 Type 2 diabetes mellitus with diabetic autonomic (poly)neuropathy; F31.9 Bipolar disorder, unspecified; G35 Multiple sclerosis; N18.30 Chronic kidney disease, stage 3 unspecified; G40.909 Epilepsy, unspecified, not intractable, without status epilepticus; F11.21 Opioid dependence, in remission; Z20.822 Contact with and (suspected) exposure to COVID-19; F39 Unspecified mood [affective] disorder; F12.10 Cannabis abuse, uncomplicated; E86.0 Dehydration; G47.33 Obstructive sleep apnea (adult) (pediatric); F41.0 Panic disorder [episodic paroxysmal anxiety]; E78.5 Hyperlipidemia, unspecified; I25.10 Atherosclerotic heart disease of native coronary artery without angina pectoris; E53.8 Deficiency of other specified B group vitamins; I44.0 Atrioventricular block, first degree; K21.9 Gastro-esophageal reflux disease without esophagitis; G89.29 Other chronic pain; M54.2 Cervicalgia; M54.5 Low back pain; G24.9 Dystonia, unspecified; M19.90 Unspecified osteoarthritis, unspecified site; F17.290 Nicotine dependence, other tobacco product, uncomplicated; Z79.82 Long term (current) use of aspirin; Z79.84 Long term (current) use of oral hypoglycemic drugs; Z79.1 Long term (current) use of non-steroidal anti-inflammatories (NSAID); Z79.899 Other long term (current) drug therapy; Z87.442 Personal history of urinary calculi; Z87.01 Personal history of pneumonia (recurrent); Z96.698 Presence of other orthopedic joint implants; Z90.89 Acquired absence of other organs; Z98.1 Arthrodesis status; Z98.42 Cataract extraction status, left eye; Z98.41 Cataract extraction status, right eye; Z96.1 Presence of intraocular lens; Z87.39 Personal history of other diseases of the musculoskeletal system and connective tissue; Z56.0 Unemployment, unspecified; Z86.2 Personal history of diseases of the blood and blood-forming organs and certain disorders involving the immune mechanism; Z91.81 History of falling; Z98.890 Other specified postprocedural states; W19.XXXA Unspecified fall, initial encounter; Z88.0 Allergy status to penicillin; Z88.8 Allergy status to other drugs, medicaments and biological substances; Z82.49 Family history of ischemic heart disease and other diseases of the circulatory system; Z82.5 Family history of asthma and other chronic lower respiratory diseases
CPT/HCPCS: 36415; 71045; 80053; 80164; 80306; 80320; 81003; 82140; 82607; 82746; 83036; 83921; 84443; 84484; 85025; 85610; 85730; 86780; 87635; 93005; 96361; 96374; 99285

== ENCOUNTER 2022-01-11 14:21 | Inpatient (IN) | payer BC, MEDICARE ==
[2022-01-11] MEDS ORDERED: SODIUM CHLORIDE 0.9% 1,000 ML IV STA (15:50)
[2022-01-11 16:04] LABS: HCT 35.3 % (39.0-53.0); HGB 12.1 gm/dL (13.0-17.5); MCH 32.6 pg (25.0-35.0); MCHC 34.2 g/dL (31.0-37.0); MCV 95.5 fL (80.0-100.0); Mean Platelet Volume 8.1; Platelet Count 158 k/uL (150-450); RDW 12.7 % (11.5-15.5); WBC 8.3 k/uL (3.8-10.6)
[2022-01-11 16:10] LABS: Albumin 3.6 g/dL (3.5-5.0); Potassium 3.8 mmol/L (3.5-5.1); Total Bilirubin 0.3 mg/dL (0.2-1.3)
[2022-01-11 16:38] LABS: Band Neutrophils % 1 %; Eosinophils # (M) 0.58 k/uL (0-0.7); Lymphocytes # (M) 0.33 k/uL (1.0-4.8); Metamyelocytes # (M) 0.08 k/uL (0); Metamyelocytes % 1 %; Monocytes # (M) 0.91 k/uL (0-1.0); Myelocytes # (M) 0.08 k/uL (0); Myelocytes % 1 %; Neutrophils % (M) 77 %; Nucleated Red Blood Cells 0 /100 WBC (0-0); Total Cells Counted 200
[2022-01-11 16:39] LABS: RBC Morphology Normal
--- NOTE | 2022-01-11 16:56 | CT ---
EXAMINATION TYPE: CT brain wo con CT DLP: 1090 mGycm, Automated exposure control for dose reduction was used. DATE OF EXAM: 01/11/2022 4:42 PM COMPARISON: 05/05/2019. CLINICAL INDICATION:Male, 56 years old with history of Altered mental status, Altered mental status. TECHNIQUE: Brain: Axial CT images of the brain were obtained with coronal and sagittal reformats created and rev iewed. Contrast used: None. Oral contrast used: None. FINDINGS: Brain: Extra-axial spaces: No abnormal extra-axial fluid collections. Ventricular system: Within normal limits Cerebral parenchyma: No acute intraparenchymal hemorrhage or mass effect. The meier-white junction is well differentiated. Scattered hypoattenuating areas are seen within the white matter. Cerebellum: Unremarkable. Mass effect: No evidence of midline shift. Intracranial vasculature: Atherosclerotic calcifications of the intracranial vessels. Soft tissues: Normal. Calvarium/osseous structures: No depressed skull fracture. Paranasal sinuses and mastoid air cells: Moderate scattered paranasal sinus disease. Visualized orbits: Bilateral aphakia IMPRESSION: 1. No acute intracranial process. 2. Nonspecific white matter changes, likely secondary to chronic small vessel ischemic disease. 3. Moderate paranasal sinus disease.
--- NOTE | 2022-01-11 16:59 | CT ---
EXAMINATION TYPE: CT chest abdomen wo con CT DLP: 1013 mGycm, Automated exposure control for dose reduction was used. DATE OF EXAM: 01/11/2022 4:42 PM COMPARISON: 05/30/2019 CLINICAL INDICATION:Male, 56 years old with history of Abdominal pain and hemoptysis, Technique: Multiple axial images of the chest and abdomen were obtained. Two-dimensional coronal and sagittal reconstructions were obtained. Contrast used: None Oral contrast used: without Oral Contrast Findings: CHEST: LUNGS/ PLEURA: Scattered opacities are seen most pronounced in the lower lobes and right middle lobe. No pneumothorax or pleural effusion. AIRWAY: Patent and unremarkable. HEART: Size within normal limits. MEDIASTINUM: No gross evidence of adenopathy. VASCULATURE: No aortic aneurysm. MUSCULOSKELETAL: No acute osseous abnormalities. SOFT TISSUES/LYMPH NODES: Left chest wall battery pack lead extending superiorly. LOWER NECK: No significant findings. ABDOMEN: ABDOMEN LIVER: Unremarkable GALLBLADDER AND BILE DUCTS: Unremarkable. PANCREAS: Unremarkable. SPLEEN: Unremarkable. ADRENAL GLANDS: Unremarkable. KIDNEYS AND URETERS: Left nonobstructing calculus. No evidence of hydronephrosis process bilaterally. STOMACH AND BOWEL: No evidence of bowel obstruction. PERITONEUM: No evidence of pneumoperitoneum or free fluid. VASCULATURE: No evidence of aortic aneurysm. Atherosclerosis of the arterial vasculature. MUSCULOSKELETAL: No acute osseous abnormalities, partially visualized fixation hardware in the lower spine. L1 vertebral body compression deformity is unchanged from 2020. LYMPH NODES: No gross evidence for lymphadenopathy. SOFT TISSUE/ABDOMINAL WALL: Battery pack in the left posterior buttock noted with leads terminating i n the thecal sac. IMPRESSION: Scattered opacities throughout the lungs most pronounced in the lower lobes and right middle lobe, co rrelate for pneumonia. Attention on short-term follow-up imaging.
[2022-01-11 17:07] LABS: Appearance,Urine Clear (Clear); Bilirubin,Urine Negative (Negative); Blood,Urine Negative (Negative); Color,Urine Yellow; Glucose,Urine (UA) Negative (Negative); Hyaline Casts,Urine 1 /lpf (0-2); Ketones,Urine Negative (Negative); Leukocyte Esterase,Urine Negative (Negative); Nitrite,Urine Negative (Negative); Protein,Urine 1+ (Negative); RBC,Urine 1 /hpf (0-5); Specific Gravity,Urine 1.019 (1.001-1.035); Urobilinogen,Urine <2.0 mg/dL (<2.0); WBC,Urine 1 /hpf (0-5)
--- NOTE | 2022-01-11 17:20 | ED ---
Altered Mental Status HPI - General Chief Complaint: Altered Mental Status Stated Complaint: blood in cpap/Fall Time Seen by Provider: 01/11/22 15:16 Source: patient, RN notes reviewed Mode of arrival: wheelchair Limitations: no limitations - History of Present Illness Initial Comments: This is a 56-year-old male who presents to the emergency department for altered mental status. His states that over the last 2-3 weeks, he has had increasing but intermittent confusion. 6 days ago, he fell and landed on his right side. He has since been complaining of pain on the right side of the chest and abdomen. Over the last 2 nights, his has noticed blood in his CPAP mask and is worried that this may be related to the injury. Patient also reports coughing and shortness of breath. He tested negative for COVID at home 2 days ago. On the ride here, he was trying to reach for a hamburger that was not present. While in the emergency department he was asking for a popsicle and thought that he was at home. His states that the confusion seems to be getting much worse. He has also had an increase in seizures, and has had 2 today, which is unusual for him. MD Complaint: altered mental status - Related Data Home Medications Medication Instructions Recorded Confirmed Aspirin 81 mg PO DAILY 11/14/17 11/04/20 Atorvastatin [Lipitor] 10 mg PO W/LUNCH 02/22/19 11/04/20 Lacosamide [Vimpat] 200 mg PO BID 02/22/19 11/04/20 metFORMIN HCL [Glucophage] 1,000 mg PO BID 02/22/19 11/04/20 Ibuprofen [Motrin] 800 mg PO TID 05/18/19 11/04/20 Lisinopril-Hctz 10-12.5 mg 2 tab PO DAILY 05/18/19 11/04/20 [Zestoretic 10-12.5] Furosemide [Lasix] 20 mg PO DAILY PRN 06/09/19 11/04/20 Baclofen [Lioresal] 20 mg PO QID 09/22/19 11/04/20 Divalproex ER [Depakote ER] 500 mg PO QID 11/04/20 11/04/20 Meclizine [Antivert] 12.5 mg PO TID PRN 11/04/20 11/04/20 Propranolol [Inderal] 40 mg PO BID 11/04/20 11/04/20 Siponimod [Mayzent] 2 mg PO DAILY@0600 11/04/20 11/04/20 Testosterone [Androgel 1.62% Gel 1 applic TOPICAL Q48H 11/04/20 11/04/20 Pump] clonazePAM [KlonoPIN] 0.5 mg PO BID 11/04/20 11/04/20 Previous Rx's Medication Instructions Recorded OLANZapine [ZyPREXA] 2.5 mg PO DAILY #0 09/23/19 OLANZapine [ZyPREXA] 5 mg PO HS #0 tablet 09/23/19 Sertraline HCl [Zoloft] 100 mg PO DAILY #30 tab 09/23/19 Allergies Allergy/AdvReac Type Severity Reaction Status Date / Time Penicillins Allergy Severe Swelling Verified 01/11/22 14:48 prochlorperazine AdvReac Severe Hallucinati Verified 01/11/22 14:48 [From Compazine] ons prochlorperazine edisylate AdvReac Severe Hallucinati Verified 01/11/22 14:48 [From Compazine] ons prochlorperazine maleate AdvReac Severe Hallucinati Verified 01/11/22 14:48 [From Compazine] ons bupropion HCl AdvReac Intermediate Nausea & Verified 01/11/22 14:48 [From Wellbutrin] Vomiting gabapentin [From Neurontin] AdvReac Intermediate Nausea & Verified 01/11/22 14:48 Vomiting amantadine AdvReac Unknown Nausea & Verified 01/11/22 14:48 Vomiting Review of Systems ROS Statement: Those systems with pertinent positive or pertinent negative responses have been documented in the HPI. ROS Other: All systems not noted in ROS Statement are negative. Constitutional: Denies: fever ENT: Denies: throat pain Respiratory: Reports: cough, dyspnea Cardiovascular: Denies: chest pain Gastrointestinal: Denies: abdominal pain, vomiting Skin: Denies: rash Past Medical History Past Medical History: Chest Pain / Angina, Diabetes Mellitus, Eye Disorder, GERD/Reflux, Hyperlipidemia, Hypertension, Memory Impairment, Musculoskeletal Disorder, Neurologic Disorder, Osteoarthritis (OA), Pneumonia, Renal Disease, Seizure Disorder, Sleep Apnea/CPAP/BIPAP Additional Past Medical History / Comment(s): MS, several brain lesions, possible progressive brain injury, seizures daily-last seizure 09/21/19, IDDM type II, neuropathy L side body, gastroparesis, chronic cervical and lumbar back pain, spinal stimulator in place, L nephrolithiasis, anemia, insomnis, BLANE- cannot tolerate device, occasional bilateral leg edema-uses lasix prn. History of Any Multi-Drug Resistant Organisms: None Reported Past Surgical History: Back Surgery, Heart Catheterization, Orthopedic Surgery, Tonsillectomy Additional Past Surgical History / Comment(s): VNS unit L chest, spinal stimulator, lumbar fusion/cage, Cspine fusion, L knee arthroscopy, bilateral cataract removals/lens implants Past Anesthesia/Blood Transfusion Reactions: No Reported Reaction Past Psychological History: Anxiety, Depression Smoking Status: Vaper Past Alcohol Use History: Occasional Past Drug Use History: Marijuana - Past Family History Mother Family Medical History: COPD, Hypertension Father Family Medical History: Coronary Artery Disease (CAD), Myocardial Infarction (TN) Additional Family Medical History / Comment(s): cabg. Father had a Mi at the age of 55 yrs. Heart disease runs strong on father's side of family. General Exam Limitations: no limitations General appearance: alert, in no apparent distress Head exam: Present: atraumatic, normocephalic, normal inspection ENT exam: Present: normal exam, mucous membranes moist, TM's normal bilaterally, normal external ear exam Neck exam: Present: normal inspection. Absent: tenderness, meningismus, lymphadenopathy Respiratory exam: Present: rales, chest wall tenderness (right sided). Absent: normal lung sounds bilaterally, respiratory distress Cardiovascular Exam: Present: regular rate, normal rhythm, normal heart sounds. Absent: systolic murmur, diastolic murmur, rubs, gallop, clicks GI/Abdominal exam: Present: soft, normal bowel sounds. Absent: distended, tenderness, guarding, rebound, rigid Neurological exam: Present: alert Psychiatric exam: Present: normal affect, normal mood Skin exam: Present: warm, dry, intact, normal color. Absent: rash Course Vital Signs 01/11/22 01/11/22 14:45 19:00 Temperature 99.3 F Pulse Rate 63 61 Respiratory 16 18 Rate Blood Pressure 111/77 119/91 O2 Sat by Pulse 95 96 Oximetry Medical Decision Making - Medical Decision Making This is a 56-year-old male who presents to the emergency department for altered mental status. Lab work obtained revealing no actionable findings. Chronic kidney disease is stable from prior lab values. Urinalysis negative for signs of infection. Computed tomography scan of the chest and abdomen obtained due to the ongoing cough and right sided rib pain from the fall. Computed tomography scan reveals scattered opacities throughout the lungs, most prominent in the lower lobes and the right middle lobe suggestive of a pneumonia. There were no rib fractures identified. It is possible that the pneumonia is related to the fall and the patient not wanting to take a deep breath. Patient will be admitted to medicine for pneumonia and he was started on Levaquin and Flagyl due to penicillin allergy. This case was discussed in detail with the attending ED physician. Presentation, findings, and treatment plan discussed in detail as well. - Lab Data Result diagrams: 01/11/22 15:49 01/11/22 15:49 Lab Results 01/11/22 01/11/22 01/11/22 Range/Units 15:49 15:49 15:49 WBC 8.3 (3.8-10.6) k/uL RBC 3.70 L (4.30-5.90) m/uL Hgb 12.1 L (13.0-17.5) gm/dL Hct 35.3 L (39.0-53.0) % MCV 95.5 (80.0-100.0) fL MCH 32.6 (25.0-35.0) pg MCHC 34.2 (31.0-37.0) g/dL RDW 12.7 (11.5-15.5) % Plt Count 158 (150-450) k/uL MPV 8.1 Neutrophils % (Manual) 77 % Band Neuts % (Manual) 1 % Lymphocytes % (Manual) 4 % Monocytes % (Manual) 11 % Eosinophils % (Manual) 7 % Metamyelocytes % 1 % Myelocytes % 1 % Neutrophils # (Manual) 6.40 (1.3-7.7) k/uL Lymphocytes # (Manual) 0.33 L (1.0-4.8) k/uL Monocytes # (Manual) 0.91 (0-1.0) k/uL Eosinophils # (Manual) 0.58 (0-0.7) k/uL Metamyelocytes # (Man) 0.08 H (0) k/uL Myelocytes # (Manual) 0.08 H (0) k/uL Nucleated RBCs 0 (0-0) /100 WBC Manual Slide Review Performed RBC Morphology Normal PT 11.0 (9.0-12.0) sec INR 1.0 (<1.2) APTT 24.0 (22.0-30.0) sec Sodium 140 (137-145) mmol/L Potassium 3.8 (3.5-5.1) mmol/L Chloride 101 (98-107) mmol/L Carbon Dioxide 24 (22-30) mmol/L Anion Gap 15 mmol/L BUN 42 H (9-20) mg/dL Creatinine 1.63 H (0.66-1.25) mg/dL Est GFR (CKD-EPI)AfAm 54 (>60 ml/min/1.73 sqM) Est GFR (CKD-EPI)NonAf 47 (>60 ml/min/1.73 sqM) Glucose 118 H (74-99) mg/dL Plasma Lactic Acid Ermias (0.7-2.0) mmol/L Calcium 9.0 (8.4-10.2) mg/dL Total Bilirubin 0.3 (0.2-1.3) mg/dL AST 21 (17-59) U/L ALT 17 (4-49) U/L Alkaline Phosphatase 62 (38-126) U/L Creatine Kinase (55-170) U/L Troponin I (0.000-0.034) ng/mL NT-Pro-B Natriuret Pep pg/mL Total Protein 6.0 L (6.3-8.2) g/dL Albumin 3.6 (3.5-5.0) g/dL Urine Color Urine Appearance (Clear) Urine pH (5.0-8.0) Ur Specific [place] (1.001-1.035) Urine Protein (Negative) Urine Glucose (UA) (Negative) Urine Ketones (Negative) Urine Blood (Negative) Urine Nitrite (Negative) Urine Bilirubin (Negative) Urine Urobilinogen (<2.0) mg/dL Ur Leukocyte Esterase (Negative) Urine RBC (0-5) /hpf Urine WBC (0-5) /hpf Hyaline Casts (0-2) /lpf Coronavirus (PCR) (Not Detectd) Influenza Type A RNA (Not Detectd) Influenza Type B (PCR) (Not Detectd) 01/11/22 01/11/22 01/11/22 Range/Units 15:49 15:49 15:55 WBC (3.8-10.6) k/uL RBC (4.30-5.90) m/uL Hgb (13.0-17.5) gm/dL Hct (39.0-53.0) % MCV (80.0-100.0) fL MCH (25.0-35.0) pg MCHC (31.0-37.0) g/dL RDW (11.5-15.5) % Plt Count (150-450) k/uL MPV Neutrophils % (Manual) % Band Neuts % (Manual) % Lymphocytes % (Manual) % Monocytes % (Manual) % Eosinophils % (Manual) % Metamyelocytes % % Myelocytes % % Neutrophils # (Manual) (1.3-7.7) k/uL Lymphocytes # (Manual) (1.0-4.8) k/uL Monocytes # (Manual) (0-1.0) k/uL Eosinophils # (Manual) (0-0.7) k/uL Metamyelocytes # (Man) (0) k/uL Myelocytes # (Manual) (0) k/uL Nucleated RBCs (0-0) /100 WBC Manual Slide Review RBC Morphology PT (9.0-12.0) sec INR (<1.2) APTT (22.0-30.0) sec Sodium (137-145) mmol/L Potassium (3.5-5.1) mmol/L Chloride (98-107) mmol/L Carbon Dioxide (22-30) mmol/L Anion Gap mmol/L BUN (9-20) mg/dL Creatinine (0.66-1.25) mg/dL Est GFR (CKD-EPI)AfAm (>60 ml/min/1.73 sqM) Est GFR (CKD-EPI)NonAf (>60 ml/min/1.73 sqM) Glucose (74-99) mg/dL Plasma Lactic Acid Ermias 1.1 (0.7-2.0) mmol/L Calcium (8.4-10.2) mg/dL Total Bilirubin (0.2-1.3) mg/dL AST (17-59) U/L ALT (4-49) U/L Alkaline Phosphatase (38-126) U/L Creatine Kinase 52 L (55-170) U/L Troponin I <0.012 (0.000-0.034) ng/mL NT-Pro-B Natriuret Pep pg/mL Total Protein (6.3-8.2) g/dL Albumin (3.5-5.0) g/dL Urine Color Urine Appearance (Clear) Urine pH (5.0-8.0) Ur Specific [place] (1.001-1.035) Urine Protein (Negative) Urine Glucose (UA) (Negative) Urine Ketones (Negative) Urine Blood (Negative) Urine Nitrite (Negative) Urine Bilirubin (Negative) Urine Urobilinogen (<2.0) mg/dL Ur Leukocyte Esterase (Negative) Urine RBC (0-5) /hpf Urine WBC (0-5) /hpf Hyaline Casts (0-2) /lpf Coronavirus (PCR) (Not Detectd) Influenza Type A RNA (Not Detectd) Influenza Type B (PCR) (Not Detectd) 01/11/22 01/11/22 01/11/22 Range/Units 15:55 16:12 18:11 WBC (3.8-10.6) k/uL RBC (4.30-5.90) m/uL Hgb (13.0-17.5) gm/dL Hct (39.0-53.0) % MCV (80.0-100.0) fL MCH (25.0-35.0) pg MCHC (31.0-37.0) g/dL RDW (11.5-15.5) % Plt Count (150-450) k/uL MPV Neutrophils % (Manual) % Band Neuts % (Manual) % Lymphocytes % (Manual) % Monocytes % (Manual) % Eosinophils % (Manual) % Metamyelocytes % % Myelocytes % % Neutrophils # (Manual) (1.3-7.7) k/uL Lymphocytes # (Manual) (1.0-4.8) k/uL Monocytes # (Manual) (0-1.0) k/uL Eosinophils # (Manual) (0-0.7) k/uL Metamyelocytes # (Man) (0) k/uL Myelocytes # (Manual) (0) k/uL Nucleated RBCs (0-0) /100 WBC Manual Slide Review RBC Morphology PT (9.0-12.0) sec INR (<1.2) APTT (22.0-30.0) sec Sodium (137-145) mmol/L Potassium (3.5-5.1) mmol/L Chloride (98-107) mmol/L Carbon Dioxide (22-30) mmol/L Anion Gap mmol/L BUN (9-20) mg/dL Creatinine (0.66-1.25) mg/dL Est GFR (CKD-EPI)AfAm (>60 ml/min/1.73 sqM) Est GFR (CKD-EPI)NonAf (>60 ml/min/1.73 sqM) Glucose (74-99) mg/dL Plasma Lactic Acid Ermias (0.7-2.0) mmol/L Calcium (8.4-10.2) mg/dL Total Bilirubin (0.2-1.3) mg/dL AST (17-59) U/L ALT (4-49) U/L Alkaline Phosphatase (38-126) U/L Creatine Kinase (55-170) U/L Troponin I (0.000-0.034) ng/mL NT-Pro-B Natriuret Pep 482 pg/mL Total Protein (6.3-8.2) g/dL Albumin (3.5-5.0) g/dL Urine Color Yellow Urine Appearance Clear (Clear) Urine pH 6.0 (5.0-8.0) Ur Specific [place] 1.019 (1.001-1.035) Urine Protein 1+ H (Negative) Urine Glucose (UA) Negative (Negative) Urine Ketones Negative (Negative) Urine Blood Negative (Negative) Urine Nitrite Negative (Negative) Urine Bilirubin Negative (Negative) Urine Urobilinogen <2.0 (<2.0) mg/dL Ur Leukocyte Esterase Negative (Negative) Urine RBC 1 (0-5) /hpf Urine WBC 1 (0-5) /hpf Hyaline Casts 1 (0-2) /lpf Coronavirus (PCR) (Not Detectd) Influenza Type A RNA Not Detected (Not Detectd) Influenza Type B (PCR) Not Detected (Not Detectd) 01/11/22 Range/Units 18:11 WBC (3.8-10.6) k/uL RBC (4.30-5.90) m/uL Hgb (13.0-17.5) gm/dL Hct (39.0-53.0) % MCV (80.0-100.0) fL MCH (25.0-35.0) pg MCHC (31.0-37.0) g/dL RDW (11.5-15.5) % Plt Count (150-450) k/uL MPV Neutrophils % (Manual) % Band Neuts % (Manual) % Lymphocytes % (Manual) % Monocytes % (Manual) % Eosinophils % (Manual) % Metamyelocytes % % Myelocytes % % Neutrophils # (Manual) (1.3-7.7) k/uL Lymphocytes # (Manual) (1.0-4.8) k/uL Monocytes # (Manual) (0-1.0) k/uL Eosinophils # (Manual) (0-0.7) k/uL Metamyelocytes # (Man) (0) k/uL Myelocytes # (Manual) (0) k/uL Nucleated RBCs (0-0) /100 WBC Manual Slide Review RBC Morphology PT (9.0-12.0) sec INR (<1.2) APTT (22.0-30.0) sec Sodium (137-145) mmol/L Potassium (3.5-5.1) mmol/L Chloride (98-107) mmol/L Carbon Dioxide (22-30) mmol/L Anion Gap mmol/L BUN (9-20) mg/dL Creatinine (0.66-1.25) mg/dL Est GFR (CKD-EPI)AfAm (>60 ml/min/1.73 sqM) Est GFR (CKD-EPI)NonAf (>60 ml/min/1.73 sqM) Glucose (74-99) mg/dL Plasma Lactic Acid Ermias (0.7-2.0) mmol/L Calcium (8.4-10.2) mg/dL Total Bilirubin (0.2-1.3) mg/dL AST (17-59) U/L ALT (4-49) U/L Alkaline Phosphatase (38-126) U/L Creatine Kinase (55-170) U/L Troponin I (0.000-0.034) ng/mL NT-Pro-B Natriuret Pep pg/mL Total Protein (6.3-8.2) g/dL Albumin (3.5-5.0) g/dL Urine Color Urine Appearance (Clear) Urine pH (5.0-8.0) Ur Specific [place] (1.001-1.035) Urine Protein (Negative) Urine Glucose (UA) (Negative) Urine Ketones (Negative) Urine Blood (Negative) Urine Nitrite (Negative) Urine Bilirubin (Negative) Urine Urobilinogen (<2.0) mg/dL Ur Leukocyte Esterase (Negative) Urine RBC (0-5) /hpf Urine WBC (0-5) /hpf Hyaline Casts (0-2) /lpf Coronavirus (PCR) Not Detected (Not Detectd) Influenza Type A RNA (Not Detectd) Influenza Type B (PCR) (Not Detectd) - EKG Data EKG Comments: Electronic atrial pacemaker. Ventricular rate 58 bpm, CA interval 227 ms, QRS duration 112 ms, QTC 418 ms. - Radiology Data Radiology results: report reviewed, image reviewed Disposition Clinical Impression: Pneumonia, AMS (altered mental status) Disposition: ADMITTED IP TO THIS HOSP
[2022-01-11] MEDS ORDERED: PNEUMONIA PROTOCOL UTILIZED 1 EACH MISC PO PRN (18:13)
[2022-01-11] MEDS ORDERED: LEVOFLOXACIN 750MG-D5W PMX 750 MG in DEXTROSE/WATER 1 150ML.BAG IVPB SCH (18:15)
[2022-01-11] MEDS ORDERED: ACETAMINOPHEN TAB 325 MG TAB PO PRN (18:23)
[2022-01-11] MEDS ORDERED: HYDROcodone/APAP 5-325MG 1 EACH TAB PO PRN (18:23)
[2022-01-11] MEDS ORDERED: ONDANSETRON 4 MG/2 ML VIAL IVP PRN (18:23)
[2022-01-11] MEDS ORDERED: NALOXONE 0.4 MG/ML 1 ML VIAL IV PRN (18:23)
[2022-01-11] MEDS ORDERED: metroNIDAZOLE-NS PMX 500 MG in SALINE 1 100ML.BAG IVPB ONE (18:30)
[2022-01-11] MEDS ORDERED: OLANZapine 5 MG TAB PO SCH (21:00)
[2022-01-11] MEDS ORDERED: clonazePAM 0.5 MG TAB PO SCH (21:00)
[2022-01-11] MEDS: LACOSAMIDE 50 MG TABLET PO SCH (23:28)
[2022-01-12] MEDS: DIVALPROEX ER 500 MG TAB.ER.24H PO SCH ×5 (00:18→21:20)
[2022-01-12] MEDS: PROPRANOLOL 40 MG TAB PO SCH ×3 (00:18→21:20)
[2022-01-12] MEDS: clonazePAM 1 MG TAB PO SCH ×3 (00:18→21:20)
[2022-01-12] MEDS: metroNIDAZOLE-NS PMX 500 MG in SALINE 1 100ML.BAG IVPB SCH ×3 (02:02→20:39)
[2022-01-12] MEDS: OLANZapine 5 MG TAB PO SCH ×2 (05:59→19:00)
[2022-01-12] MEDS: [UNRECOGNIZED DRUG - OTHER] PO SCH (06:00)
[2022-01-12 06:04] LABS: Glucose,Whole Blood 325 mg/dL (70-110)
[2022-01-12] MEDS ORDERED: DEXTROSE 50% SYRINGE 50 ML IVP PRN ×2 (06:30)
[2022-01-12] MEDS: metFORMIN 500 MG TAB PO SCH ×2 (06:47→19:00)
[2022-01-12] MEDS: INSULIN ASPART (NovoLOG) 100 UNIT/ML VIAL SQ SCH ×4 (06:47→21:26)
[2022-01-12] MEDS ORDERED: BENZOCAINE/MENTHOL LOZENG 1 EACH LOZENGE MUCOUS MEM PRN (08:35)
[2022-01-12 08:47] LABS: Glucose,Whole Blood 39 mg/dL (70-110)
[2022-01-12 08:58] LABS: Glucose,Whole Blood 44 mg/dL (70-110)
[2022-01-12] MEDS ORDERED: TESTOSTERONE TOPICAL SCH (09:00)
[2022-01-12 09:11] LABS: Glucose,Whole Blood 67 mg/dL (70-110)
[2022-01-12 09:33] LABS: Glucose,Whole Blood 73 mg/dL (70-110)
[2022-01-12] MEDS: LISINOPRIL-HCTZ 10-12.5 MG 1 EACH TAB PO SCH (09:42)
[2022-01-12] MEDS: SERTRALINE 100 MG TAB PO SCH (09:42)
[2022-01-12] MEDS: LACOSAMIDE 50 MG TABLET PO SCH ×2 (09:43→21:20)
[2022-01-12 11:39] LABS: Glucose,Whole Blood 123 mg/dL (70-110)
[2022-01-12] MEDS: ATORVASTATIN 20 MG TAB PO SCH (12:57)
[2022-01-12] MEDS: OLANZapine 2.5 MG TAB PO SCH (13:01)
[2022-01-12 14:18] LABS: Glucose,Whole Blood 131 mg/dL (70-110)
--- NOTE | 2022-01-12 16:42 | XR ---
EXAMINATION TYPE: XR chest 1V portable DATE OF EXAM: 01/12/2022 Comparison: 11/04/2020 Clinical History: 56 year old male, congested cough Findings: Right upper limits of normal in size. Large body habitus resulting hazy densities. Aorta and pulmonar y vasculature within normal limits. Spinal stimulator entering along the mid thoracic spinal canal. G enerator device along the left side of the chest with a stimulator leads extending to the left base o f the neck. No consolidation or pleural effusion. Impression: Borderline heart size. No acute process seen.
--- NOTE | 2022-01-12 16:46 | P.HPIM ---
History of Present Illness H&P Date: 01/12/22 Chief Complaint: Altered mentation I'm rounding for Dr. Bruce Khan. This is a pleasant 56-year-old patient who follows with Dr. Bruce Khan. History is obtained by the at the bedside. Chronic stable medical conditions include diabetes, GERD, hypertension, hyperlipidemia, cognitive impairment, osteoarthritis, multiple sclerosis, after sleep apnea, weekly seizures, peripheral neuropathy, gastroparesis, chronic cervical lumbar back pain, spinal stimulator in place, kidney stones, VNS unit left chest. For 1 week patient is having nausea vomiting from his underlying gastroparesis. That improved. Last one week patient started eating better. No trouble with h is BM and urine. Patient follows with neurologist SISI Hooper. Also for last 1 week to some alteration in cognition. By the way patient does get confused at times. Has seizures about once or twice a week. Yesterday noticed to have some blood in his cough. Patient's had a congested cough for last few days. No obvious fever and chills. [place] to have pneumonia in the ER started on Levaquin in the ER. Patient is able to answer simple questions. Patient is able to use a cane to get about. Review of systems: GEN.: Tired EYES: None HEENT: None NECK: None RESPIRATORY: Congested cough CARDIOVASCULAR: None GASTROINTESTINAL: None GENITOURINARY: None MUSCULOSKELETAL: None LYMPHATICS: None HEMATOLOGICAL: None PSYCHIATRY: Sometimes confused NEUROLOGICAL: As above Past medical history to include: Diabetes, GERD, hyperlipidemia, hypertension, cognitive impairment, osteoarthritis, MS, seizure disorder, sleep apnea, peripheral neuropathy, gastroparesis, chronic cervical lumbar back pain, spinal stimulator, kidney stones, anxiety depression, VNS stability unit Social history: This is a cane sometimes walker. Lives with his . No smoking. No alcohol. Does chew tobacco no. Patient based medical marijuana daily. Physical examination: VITAL SIGNS: 99.3, 63, 16, 111/77, 95% room air GENERAL: BMI 29.8, reclining bed, awake, tired. EYES: Pupils equal. Conjunctiva normal. HEENT: External appearance of nose and ears normal, oral cavity grossly normal. NECK: JVD not raised; masses not palpable. HEART: First and second heart sounds are normal; no edema. LUNGS: Respiratory rate increased; decreased breath sound some coarse crackles. ABDOMEN: Soft, nontender, liver spleen not palpable, no masses palpable. PSYCH: Patient able to answer simple questions more affect normall. MUSCULOSKELETAL:No Clubbing/cyanosis;muscles-grossly intact NEUROLOGICAL: Cranial nerves grossly intact; no facial asymmetry, power and sensation grossly intact. LYMPHATICS: No lymph nodes palpable in the axilla and neck INVESTIGATIONS, reviewed in the clinical context: WBC 8.3 hemoglobin 12.1 platelets 158 potassium 3.8 BUN 42 creatinine 1.63 proBNP 482 UA positive for protein 1+ COVID 19/influenza type A/influenza type B: Not detected HbA1c 6.5 EKG tracing personally reviewed by me-normal sinus rhythm Computed tomography scan brain: No acute intracranial process. Nonspecific white matter changes. CT chest abdomen: Scattered opacities throughout the lung. More so in the lower lobes. Assessment and plan: -Acute pneumonia/pneumonitis, consider gram-negative organism. IV ceftriaxone -Depression/depression Zoloft, Zyprexa/Klonopin -GERD/esophagitis PPI -Gastroparesis secondary to diabetes Reglan -Hyperlipidemia Lipitor -Essential hypertension Zestoretic -Seizure disorder Depakote, Vimpat, -Moderate cognitive impairment -Chronic multiple sclerosis siponimod. Follows with neurology Matt Hooper -Diabetes mellitus type 2, oral hypoglycemic Diabetic diet. Follow Accu-Cheks. IV ceftriaxone. Resume home medications. Consult neurology. Care was discussed at length with the patient and the at the bedside. Past Medical History Past Medical History: Chest Pain / Angina, Diabetes Mellitus, Eye Disorder, GERD/Reflux, Hyperlipidemia, Hypertension, Memory Impairment, Musculoskeletal Disorder, Neurologic Disorder, Osteoarthritis (OA), Pneumonia, Renal Disease, Seizure Disorder, Sleep Apnea/CPAP/BIPAP Additional Past Medical History / Comment(s): MS, several brain lesions, possible progressive brain injury, seizures daily-last seizure 09/21/19, IDDM type II, neuropathy L side body, gastroparesis, chronic cervical and lumbar back pain, spinal stimulator in place, L nephrolithiasis, anemia, insomnis, BLANE- cannot tolerate device, occasional bilateral leg edema-uses lasix prn. History of Any Multi-Drug Resistant Organisms: None Reported Past Surgical History: Back Surgery, Heart Catheterization, Orthopedic Surgery, Tonsillectomy Additional Past Surgical History / Comment(s): VNS unit L chest, spinal stimu lator, lumbar fusion/cage, Cspine fusion, L knee arthroscopy, bilateral cataract removals/lens implants Past Anesthesia/Blood Transfusion Reactions: No Reported Reaction Past Psychological History: Anxiety, Depression Additional Psychological History / Comment(s): , lives in the family home with his . Pt uses a cane or walker to ambulate. Spouse works from home and is his caregiver. can drive. Pt has increased depression/anxiety. Spouse states he has recently had several hospitalizations but d/t covi d/establishing psychiatric care has been difficult as well as other f/u appts. Pt states depression is daily and increased but denies thoughts of suicide/plans of suicide. 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 No experience. No tobacco or alcohol use. No animal exposures. Smoking Status: Vaper Past Alcohol Use History: Occasional Additional Past Alcohol Use History / Comment(s): Pt chews a can of tobacco e very other day. He started chewing in 1985. Past Drug Use History: Marijuana Additional Drug Use History / Comment(s): Pt vapes medical marijuana daily. - Past Family History Mother Family Medical History: COPD, Hypertension Father Family Medical History: Coronary Artery Disease (CAD), Myocardial Infarction ([place]) Additional Family Medical History / Comment(s): cabg. Father had a Mi at the age of 55 yrs. Heart disease runs strong on father's side of family. Medications and Allergies Home Medications Medication Instructions Recorded Confirmed Type Lacosamide [Vimpat] 200 mg PO BID@0600,1700 02/22/19 01/11/22 History metFORMIN HCL [Glucophage] 1,000 mg PO BID@0600,1700 02/22/19 01/11/22 History Ibuprofen [Motrin] 800 mg PO TID PRN 05/18/19 01/11/22 History Lisinopril-Hctz 10-12.5 mg 1 tab PO BID@1200,2200 05/18/19 01/11/22 History [Zestoretic 10-12.5] Furosemide [Lasix] 20 mg PO DAILY PRN 06/09/19 01/11/22 History Divalproex ER [Depakote ER] 500 mg PO QID@06,12,,11/04/20 01/11/22 History Propranolol [Inderal] 40 mg PO BID@1200,2200 11/04/20 01/11/22 History Siponimod [Mayzent] 2 mg PO DAILY@1200 11/04/20 01/11/22 History Atorvastatin [Lipitor] 20 mg PO HS 01/11/22 01/11/22 History Ferrous Sulfate [Feosol] 325 mg PO DAILY@1700 01/11/22 01/11/22 History Insulin Lispro [humaLOG Kwikpen] See Protocol SQ ACHS PRN 01/11/22 01/11/22 History Metoclopramide [Reglan] 5 mg PO TID@0600,1200,1700 01/11/22 01/11/22 History OLANZapine [ZyPREXA] 2.5 mg PO DAILY@1200 01/11/22 01/11/22 History OLANZapine [ZyPREXA] 5 mg PO BID@0500,1700 01/11/22 01/11/22 History Omeprazole 40 mg PO BID@0600,2200 01/11/22 01/11/22 History Sertraline [Zoloft] 100 mg PO DAILY@1200 01/11/22 01/11/22 History clonazePAM [KlonoPIN] 1 mg PO BID@0600,1700 01/11/22 01/11/22 History Allergies Allergy/AdvReac Type Severity Reaction Status Date / Time Penicillins Allergy Severe Swelling Verified 01/11/22 21:04 prochlorperazine AdvReac Severe Hallucinati Verified 01/11/22 21:04 [From Compazine] ons prochlorperazine edisylate AdvReac Severe Hallucinati Verified 01/11/22 21:04 [From Compazine] ons prochlorperazine maleate AdvReac Severe Hallucinati Verified 01/11/22 21:04 [From Compazine] ons bupropion HCl AdvReac Intermediate Nausea & Verified 01/11/22 21:04 [From Wellbutrin] Vomiting gabapentin [From Neurontin] AdvReac Intermediate Nausea & Verified 01/11/22 21:04 Vomiting amantadine AdvReac Unknown Nausea & Verified 01/11/22 21:04 Vomiting Physical Exam Vitals: Vital Signs Temp Pulse Pulse Resp BP BP Pulse Ox 01/12/22 07:21 17 01/12/22 02:00 99.2 F 50 L 17 121/66 96 01/11/22 22:53 98.4 F 62 18 132/86 94 L 01/11/22 22:25 50 L 17 01/11/22 21:16 61 18 117/62 95 01/11/22 19:00 61 18 119/91 96 01/11/22 14:45 99.3 F 63 16 111/77 95 Intake and Output 01/11/22 01/12/22 01/12/22 22:59 06:59 14:59 Other: Voiding Method Toilet Urinal # Voids 2 Weight 99.79 kg Results CBC & Chem 7: 01/11/22 15:49 01/11/22 15:49 Labs: Abnormal Lab Results - Last 24 Hours (Table) 01/11/22 01/11/22 01/11/22 Range/Units 15:49 15:49 15:55 RBC 3.70 L (4.30-5.90) m/uL Hgb 12.1 L (13.0-17.5) gm/dL Hct 35.3 L (39.0-53.0) % Lymphocytes # (Manual) 0.33 L (1.0-4.8) k/uL Metamyelocytes # (Man) 0.08 H (0) k/uL Myelocytes # (Manual) 0.08 H (0) k/uL BUN 42 H (9-20) mg/dL Creatinine 1.63 H (0.66-1.25) mg/dL Glucose 118 H (74-99) mg/dL POC Glucose (mg/dL) (70-110) mg/dL Creatine Kinase 52 L (55-170) U/L Total Protein 6.0 L (6.3-8.2) g/dL Urine Protein (Negative) 01/11/22 01/12/22 01/12/22 Range/Units 16:12 06:03 08:43 RBC (4.30-5.90) m/uL Hgb (13.0-17.5) gm/dL Hct (39.0-53.0) % Lymphocytes # (Manual) (1.0-4.8) k/uL Metamyelocytes # (Man) (0) k/uL Myelocytes # (Manual) (0) k/uL BUN (9-20) mg/dL Creatinine (0.66-1.25) mg/dL Glucose (74-99) mg/dL POC Glucose (mg/dL) 325 H 39 L (70-110) mg/dL Creatine Kinase (55-170) U/L Total Protein (6.3-8.2) g/dL Urine Protein 1+ H (Negative) 01/12/22 01/12/22 Range/Units 08:56 09:11 RBC (4.30-5.90) m/uL Hgb (13.0-17.5) gm/dL Hct (39.0-53.0) % Lymphocytes # (Manual) (1.0-4.8) k/uL Metamyelocytes # (Man) (0) k/uL Myelocytes # (Manual) (0) k/uL BUN (9-20) mg/dL Creatinine (0.66-1.25) mg/dL Glucose (74-99) mg/dL POC Glucose (mg/dL) 44 L 67 L (70-110) mg/dL Creatine Kinase (55-170) U/L Total Protein (6.3-8.2) g/dL Urine Protein (Negative) Thrombosis Risk Factor Assmnt - Choose All That Apply Each Factor Represents 1 point: Age 41-60 years, Obesity (BMI >25) Thrombosis Risk Factor Assessment Total Risk Factor Score: 2 Thrombosis Risk Factor Assessment Level: Low Risk
[2022-01-12 16:52] LABS: Glucose,Whole Blood 129 mg/dL (70-110)
[2022-01-12] MEDS: ENOXAPARIN 40 MG/0.4 ML SYRINGE SQ SCH (19:03)
[2022-01-12 21:26] LABS: Glucose,Whole Blood 101 mg/dL (70-110)
--- NOTE | 2022-01-13 00:06 | P.CNNES ---
History of Present Illness Consult date: 01/12/22 Requesting physician: Pola Munson Reason for Consult: Possible seizure History of Present Illness: Patient is a 56-year-old male known to me from previous admissions to the hospital, came to the hospital yesterday at 2:21 PM. Patient's was also present at the time of this interview. Patient's mentions that patient has been sick for last 3 weeks off and on. He has history of gastroparesis which was acting up. He was throwing up, stopped eating, not drinking and also had some diarrhea. He was not getting better. He also was coughing and had some congestion. He was feeling weak, lost weight. Patient apparently fell either or Sunday, as his foot did not position right and his body move too fast and fell on his arm and the arm bent inside. Patient's states that he cracked the ribs. He did not want to come in initially. Yesterday his CPAP machine head some bleed. He was confused and had some seizure-like spell, therefore patient's brought him to the hospital. Patient's believes that these seizures are pseudoseizures. She mentions that patient has history of pseudoseizures, in which his body stiffens, hit his head with his left arm. He is really unaware during his seizure. He had one seizure this morning at 7:30 AM. Patient's vitals at arrival was blood pressure 111/77, pulse is 63, temperature 99.3 blood test shows normal WBC hemoglobin 12.1, platelets 158. PT/PTT normal, electrolytes are normal, BUN 42, creatinine 1.63. Hepatic panel is normal, troponin negative. CK normal. UA negative, influenza screen and rivera virus PCR negative. CT head showed no acute intracranial process. Nonspecific white matter changes, likely secondary to chronic small vessel ischemic disease. Moderate paranasal sinus disease. I personally reviewed CT head, agree with the findings. There is predominant involvement of bilateral maxillary sinuses, right much worse than left and some involvement of the ethmoid and right frontal sinus. Sphenoid sinuses are clear. CT of chest abdomen and pelvis revealed scattered opacities throughout the lungs most pronounced in the lower lobes and right middle lobe, correlate for pneumonia. EKG shows electronic atrial pac emaker. Moderate intraventricular conduction delay. Chest x-ray showed borderline heart size with no acute process. Patient at present denies any headache, dizziness or any pain anywhere in the body. Patient has history of multiple sclerosis and he believes his left side is weaker than the right. Patient follows up with Dr. Justino Ruiz with Dr. Davon guerrero. The last time he was seen by his neurologist was last month. Patient vapes marijuana, denies any tobacco or alcohol use. He does chew tobacco. Patient has been seen by myself previously on 11/04/2020. Patient has history of multiple sclerosis. Also has history of seizure disorder and pseudoseizures. Patient currently on clonazepam 1 mg twice a day, Zyprexa 5 mg twice a day, and 2.5 mg daily, omeprazole, sertraline 100 mg daily, insulin, Reglan, Depakote 500 mg 4 times a day, propanolol 40 mg twice a day, Lasix 20 mg, lisinopril/HCTZ, Vimpat 200 mg twice a day and metformin. Patient has history of multiple sclerosis diagnosed 25 years ago. He presented with MS with difficulty walking. He was placed on Tysabri which he took for long time. 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 Patient then was switched to Mayzent. Review of Systems Constitutional: Denies chills, Denies fever Eyes: denies blurred vision, denies pain Ears, nose, mouth and throat: Denies headache, Denies sore throat Cardiovascular: Denies chest pain, Denies shortness of breath Respiratory: Reports congestion, Reports cough Musculoskeletal: Denies myalgias Integumentary: Denies pruritus, Denies rash Neurological: Reports numbness, Reports weakness Psychiatric: Reports confusion, Denies anxiety, Denies depression Hematologic/Lymphatic: Denies easy bruising Past Medical History Past Medical History: Chest Pain / Angina, Diabetes Mellitus, Eye Disorder, GERD/Reflux, Hyperlipidemia, Hypertension, Memory Impairment, Musculoskeletal Disorder, Neurologic Disorder, Osteoarthritis (OA), Pneumonia, Renal Disease, Seizure Disorder, Sleep Apnea/CPAP/BIPAP Additional Past Medical History / Comment(s): MS, several brain lesions, possible progressive brain injury, seizures daily-last seizure 09/21/19, IDDM type II, neuropathy L side body, gastroparesis, chronic cervical and lumbar back pain, spinal stimulator in place, L nephrolithiasis, anemia, insomnis, BLANE- cannot tolerate device, occasional bilateral leg edema-uses lasix prn. History of Any Multi-Drug Resistant Organisms: None Reported Past Surgical History: Back Surgery, Heart Catheterization, Orthopedic Surgery, Tonsillectomy Additional Past Surgical History / Comment(s): VNS unit L chest, spinal stimulator, lumbar fusion/cage, Cspine fusion, L knee arthroscopy, bilateral cataract removals/lens implants Past Anesthesia/Blood Transfusion Reactions: No Reported Reaction Past Psychological History: Anxiety, Depression Additional Psychological History / Comment(s): , lives in the family home with his . Pt uses a cane or walker to ambulate. Spouse works from home and is his caregiver. can drive. Pt has increased depression/anxiety. Spouse states he has recently had several hospitalizations but d/t covid/establishing psychiatric care has been difficult as well as other f/u appts. Pt states depression is daily and increased but denies thoughts of suicide/plans of suicide. 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 No experience. No tobacco or alcohol use. No animal exposures. Smoking Status: Vaper Past Alcohol Use History: Occasional Additional Past Alcohol Use History / Comment(s): Pt chews a can of tobacco every other day. He started chewing in 1985. Past Drug Use History: Marijuana Additional Drug Use History / Comment(s): Pt vapes medical marijuana daily. - Past Family History Mother Family Medical History: COPD, Hypertension Father Family Medical History: Coronary Artery Disease (CAD), Myocardial Infarction ([place]) Additional Family Medical History / Comment(s): cabg. Father had a Mi at the age of 55 yrs. Heart disease runs strong on father's side of family. Medications and Allergies Home Medications Medication Instructions Recorded Confirmed Type Lacosamide [Vimpat] 200 mg PO BID@0600,1700 02/22/19 01/11/22 History metFORMIN HCL [Glucophage] 1,000 mg PO BID@0600,1700 02/22/19 01/11/22 History Ibuprofen [Motrin] 800 mg PO TID PRN 05/18/19 01/11/22 History Lisinopril-Hctz 10-12.5 mg 1 tab PO BID@1200,2200 05/18/19 01/11/22 History [Zestoretic 10-12.5] Furosemide [Lasix] 20 mg PO DAILY PRN 06/09/19 01/11/22 History Divalproex ER [Depakote ER] 500 mg PO QID@06,12,,11/04/20 01/11/22 History Propranolol [Inderal] 40 mg PO BID@1200,2200 11/04/20 01/11/22 History Siponimod [Mayzent] 2 mg PO DAILY@1200 11/04/20 01/11/22 History Atorvastatin [Lipitor] 20 mg PO HS 01/11/22 01/11/22 History Ferrous Sulfate [Feosol] 325 mg PO DAILY@1700 01/11/22 01/11/22 History Insulin Lispro [humaLOG Kwikpen] See Protocol SQ ACHS PRN 01/11/22 01/11/22 History Metoclopramide [Reglan] 5 mg PO TID@0600,1200,1700 01/11/22 01/11/22 History OLANZapine [ZyPREXA] 2.5 mg PO DAILY@1200 01/11/22 01/11/22 History OLANZapine [ZyPREXA] 5 mg PO BID@0500,1700 01/11/22 01/11/22 History Omeprazole 40 mg PO BID@0600,2200 01/11/22 01/11/22 History Sertraline [Zoloft] 100 mg PO DAILY@1200 01/11/22 01/11/22 History clonazePAM [KlonoPIN] 1 mg PO BID@0600,1700 01/11/22 01/11/22 History Allergies Allergy/AdvReac Type Severity Reaction Status Date / Time Penicillins Allergy Severe Swelling Verified 01/11/22 21:04 prochlorperazine AdvReac Severe Hallucinati Verified 01/11/22 21:04 [From Compazine] ons prochlorperazine edisylate AdvReac Severe Hallucinati Verified 01/11/22 21:04 [From Compazine] ons prochlorperazine maleate AdvReac Severe Hallucinati Verified 01/11/22 21:04 [From Compazine] ons bupropion HCl AdvReac Intermediate Nausea & Verified 01/11/22 21:04 [From Wellbutrin] Vomiting gabapentin [From Neurontin] AdvReac Intermediate Nausea & Verified 01/11/22 21:04 Vomiting amantadine AdvReac Unknown Nausea & Verified 01/11/22 21:04 Vomiting Physical Examination - Vital Signs Vital Signs: Vital Signs Temp Pulse Pulse Resp BP BP Pulse Ox 01/12/22 07:21 17 01/12/22 02:00 99.2 F 50 L 17 121/66 96 01/11/22 22:53 98.4 F 62 18 132/86 94 L 01/11/22 22:25 50 L 17 01/11/22 21:16 61 18 117/62 95 01/11/22 19:00 61 18 119/91 96 01/11/22 14:45 99.3 F 63 16 111/77 95 Intake and Output 01/11/22 01/12/22 01/12/22 22:59 06:59 14:59 Other: Voiding Method Toilet Urinal # Voids 2 Weight 99.79 kg Patient is a middle aged male, who appears older than his stated age. Patient is alert awake oriented to time place and person. He knows it is January 2022 and that he is in [facility] and name of the current president. Speech and language functions are normal. Patient can name and repeat very well. No aphasia or dysarthria. Attention, concentration and fund of knowledge is adequate. Detail cognitive function testing deferred. On cranial nerve examination, pupils are equal (although at times right pupil appeared slightly bigger than the left), both are round and reacting to light, visual mckeon are full on confrontation, with no neglect on double simultaneous depression. Extraocular muscles are intact with no nystagmus. Face is symmetric, tongue protrudes to the midline. Palatal elevation and sensation normal, hearing and shoulder shrug normal, facial sensation normal. On muscle strength testing, there is no pronator drift and the strength is normal in arms and legs distally and proximally, except hip flexion which is 4+5-bilaterally. Deep tendon reflexes are (right/left) biceps 2+3/1+, brachioradialis 2+3/1+, knee 3/2+, ankles 3/2 and plantar is up on the right down on the left. Sensory to touch is equal with no neglect on double simultaneous stimulation. Cerebellar function showed no ataxia for [id number] testing, although he is quite tremulous for [id number] bilaterally, left more than right. He has postural tremors left more than right. No dysdiadochokinesia. No ataxia for [id number] testing on either side. Tone and bulk of muscles normal. Gait deferred.. On general examination, there is no carotid bruit or murmur, S1-S2 audible. Chest is clear on consultation. Abdomen is soft nontender. No organomegaly, bowel sounds present. Peripheral pulses are present. No edema. Results - Laboratory Findings CBC and BMP: 01/11/22 15:49 01/11/22 15:49 Abnormal Lab Findings: Abnormal Labs 01/11/22 01/11/22 01/11/22 15:49 15:49 15:55 RBC 3.70 L Hgb 12.1 L Hct 35.3 L Lymphocytes # (Manual) 0.33 L Metamyelocytes # (Man) 0.08 H Myelocytes # (Manual) 0.08 H BUN 42 H Creatinine 1.63 H Glucose 118 H POC Glucose (mg/dL) Hemoglobin A1c Creatine Kinase 52 L Total Protein 6.0 L Urine Protein 01/11/22 01/12/22 01/12/22 16:12 06:03 06:59 RBC Hgb Hct Lymphocytes # (Manual) Metamyelocytes # (Man) Myelocytes # (Manual) BUN Creatinine Glucose POC Glucose (mg/dL) 325 H Hemoglobin A1c 6.5 H Creatine Kinase Total Protein Urine Protein 1+ H 01/12/22 01/12/22 01/12/22 08:43 08:56 09:11 RBC Hgb Hct Lymphocytes # (Manual) Metamyelocytes # (Man) Myelocytes # (Manual) BUN Creatinine Glucose POC Glucose (mg/dL) 39 L 44 L 67 L Hemoglobin A1c Creatine Kinase Total Protein Urine Protein 01/12/22 11:37 RBC Hgb Hct Lymphocytes # (Manual) Metamyelocytes # (Man) Myelocytes # (Manual) BUN Creatinine Glucose POC Glucose (mg/dL) 123 H Hemoglobin A1c Creatine Kinase Total Protein Urine Protein Assessment and Plan Assessment: * Seizure types spell, unclear if it was a breakthrough seizure. Patient's believes it was his typical pseudoseizure. * Seizure disorder, perhaps mixed seizure disorder. * Multiple sclerosis, currently in remission * Possible pneumonia/pneumonitis * Mild renal insufficiency * Diabetes * Hypertension * Hyperlipidemia Plan: * Patient underwent EEG today. Preliminary report was normal awake and drowsy. No epileptiform activity was seen. * Continue his current medications including Vimpat 200 mg twice a day and Depakote 500 mg 4 times a day. As it was possible pseudoseizure, we will not make any changes in his seizure medication per * Check Depakote level * Hemoglobin A1c 6.5. * Patient's last B12 was 298, we will repeat B12 level. Folate 20.6. * Medical management for pneumonia/pneumonitis as per IM. * Neurologically otherwise clear. Thank you for the consult. Time with Patient: Greater than 30
[2022-01-13 00:46] LABS: Valproic Acid (Depakene) 92.5 ug/mL
[2022-01-13] MEDS: metroNIDAZOLE-NS PMX 500 MG in SALINE 1 100ML.BAG IVPB SCH ×3 (03:05→19:23)
[2022-01-13] MEDS: clonazePAM 1 MG TAB PO SCH ×2 (06:14→18:12)
[2022-01-13] MEDS: metFORMIN 500 MG TAB PO SCH ×2 (06:14→18:12)
[2022-01-13] MEDS: OLANZapine 5 MG TAB PO SCH ×2 (06:14→18:12)
[2022-01-13] MEDS: [UNRECOGNIZED DRUG - OTHER] PO SCH (06:16)
[2022-01-13 06:18] LABS: Glucose,Whole Blood 94 mg/dL (70-110)
[2022-01-13] MEDS: INSULIN ASPART (NovoLOG) 100 UNIT/ML VIAL SQ SCH ×4 (06:49→23:39)
--- NOTE | 2022-01-13 07:28 | EEG ---
ELECTROENCEPHALOGRAM REPORT PREAMBLE: This is a 56-year-old male with history of seizure-like activity. This study is performed to evaluate for any epileptiform activity. CURRENT MEDICATIONS: 1. Depakote ER. 2. [place]. 3. Insulin. 4. Vimpat. 5. Metformin. 6. Zyprexa. 7. Zofran. 8. Mayzent. 9. Inderal. 10.Zoloft. EEG FINDINGS: This is a 21-channel digital EEG recorded with video component, utilizing 10/20 international system with referential and bipolar montages. Background consists of well-developed, moderately well regulated, slightly disorganized mixed frequencies of 9 to 10 hertz alpha, with some theta activity intermixed in bihemispheric region. Background is posterior dominant and reactive to eye opening and closing. Photic driving response was not seen. Hyperventilation was not done. Different stages of sleep were not seen. No definitive focal or generalized epileptiform activity was seen. IMPRESSION: This is essentially a normal awake and drowsy EEG. No focal, lateralized, or epileptiform activity was seen. MMODL / IJN: [id number] /
[2022-01-13] MEDS: PROPRANOLOL 40 MG TAB PO SCH ×2 (09:38→23:03)
[2022-01-13] MEDS: SERTRALINE 100 MG TAB PO SCH (09:38)
[2022-01-13] MEDS: DIVALPROEX ER 500 MG TAB.ER.24H PO SCH ×4 (09:38→23:03)
[2022-01-13] MEDS: LACOSAMIDE 50 MG TABLET PO SCH ×2 (09:39→23:02)
[2022-01-13] MEDS: LISINOPRIL-HCTZ 10-12.5 MG 1 EACH TAB PO SCH (09:41)
[2022-01-13] MEDS: ENOXAPARIN 40 MG/0.4 ML SYRINGE SQ SCH (09:41)
[2022-01-13 11:04] LABS: Glucose,Whole Blood 106 mg/dL (70-110)
[2022-01-13] MEDS ORDERED: CYANOCOBALAMIN 1,000 MCG/ML 1 ML VIAL IM ONE (11:50)
[2022-01-13] MEDS ORDERED: guaiFENesin 600 MG TABLET.ER PO PRN (11:59)
--- NOTE | 2022-01-13 12:05 | CDI ---
Documentation Clarification Form Date: 01/13/2022 11:30:07 AM From: Angela Keller RN CCDS Admit Date: 01/11/2022 06:24:00 PM Patient Name: Alonzo Taylor Visit Number: [id number] Discharge Date: ATTENTION: The Clinical Documentation Specialists (CDI) and [facility] Coding Staff appreciate your assistance in clarifying documentation. Please respond to the clarification below the line at the bottom and electronically sign. The CDI & [facility] Coding staff will review the response and follow-up if needed. Please note: Queries are made part of the Legal Health Record. If you have any questions, please contact the author of this message via ITS. Dr. Pola Munson Your patient has the documented symptom of Altered Mental Status 12/11, ED note. Additional clarification regarding the etiology/cause of this symptom is requested. History/Risk Factors: 56-year-old male presents to the ED for altered mental status over the last 2-3 weeks increasing but intermittent confusion. On the ride to the hospital, he was reaching for a hamburger that wasnt present. Medical History: Clinical Indicators: Home meds: Vimpat 200mg BID, Depakote 500mg PO QID Labs, 01/11: Rbc 3.70; Hgb 12.1; Lymphocytes 0.33 CT Chest /abd, 01/11: Scattered opacities throughout the lungs most pronounced in the lower lobes and right middle lobe, correlate for pneumonia. [address], 01/11: No acute intracranial process. EEG, 01/12: This is essentially a normal awake and drowsy EEG. No focal, lateralized, or epileptiform activity was seen. Neurology consult, 01/12: * Seizure types spell, unclear if it was a breakthrough seizure. Patient's believes it was his typical pseudoseizure. * Seizure disorder, perhaps mixed seizure disorder. * Multiple sclerosis, currently in remission * Possible pneumonia/pneumonitis As it was possible pseudoseizure, we will not make any changes in his seizure medication Treatment: 01/12 Neuro consult; 01/12 Ceftriaxone IVPB Q12HR; 01/12 Metroniadazole IVPB Q8H; 01/11 Depakote Er 500mg PO QID; 01/11 Vimpat 200mg PO BID. Please clarify the etiology of the symptom of Altered Mental Status: [ ] Metabolic Encephalopathy due to Pneumonia [ ] Postictal state from seizures [ ] Other condition (please specify) [ ] Unable to determine Metabolic encephalopathy from pneumonia, POA (Template Last Revised: April 2020) MTDD
[2022-01-13] MEDS: FOLIC ACID 1 MG TAB PO SCH (12:30)
[2022-01-13] MEDS: ATORVASTATIN 20 MG TAB PO SCH (12:34)
[2022-01-13] MEDS: OLANZapine 2.5 MG TAB PO SCH (12:34)
[2022-01-13 16:11] LABS: Glucose,Whole Blood 117 mg/dL (70-110)
--- NOTE | 2022-01-13 16:37 | P.PN ---
Progress Note - Text Progress Note Date: 01/13/22 Chief Complaint: Altered mentation I'm rounding for Dr. Bruce Khan. This is a pleasant 56-year-old patient who follows with Dr. Bruce Khan. History is obtained by the at the bedside. Chronic stable medical conditions include diabetes, GERD, hypertension, hyperlipidemia, cognitive impairment, osteoarthritis, multiple sclerosis, after sleep apnea, weekly seizures, peripheral neuropathy, gastroparesis, chronic cervical lumbar back pain, spinal stimulator in place, kidney stones, VNS unit left chest. For 1 week patient is having nausea vomiting from his underlying gastroparesis. That improved. Last one week patient started eating better. No trouble with his BM and urine. Patient follows with neurologist SISI Hooper. Also for last 1 week to some alteration in cognition. By the way patient does get confused at times. Has seizures about once or twice a week. Yesterday noticed to have some blood in his cough. Patient's had a congested cough for last few days. No obvious fever and chills. [place] to have pneumonia in the ER started on Levaquin in the ER. Patient is able to answer simple questions. Patient is able to use a cane to get about. Patient admitted with pneumonia. Decreased appetite. Started on IV ceftriaxone. 01/13/2022: Patient eating some. at the bedside. Appetite still low. Coughing some sputum. Seen by neurology. EEG negative for seizure. Active Medications Acetaminophen (Acetaminophen Tab 325 Mg Tab) 650 mg PO Q6HR PRN PRN Reason: Mild Pain or Fever > 100.5 Hydrocodone Bitart/Acetaminophen (Hydrocodone/Apap 5-325mg 1 Each Tab) 1 each PO Q4HR PRN PRN Reason: Moderate Pain (Scale 4 to 6) Atorvastatin Calcium (Atorvastatin 20 Mg Tab) 20 mg PO W/LUNCH [facility] Last Admin: 01/13/22 12:34 Dose: 20 mg Benzocaine/Menthol (Benzocaine/Menthol Lozeng 1 Each Lozenge) 1 each MUCOUS MEM Q4HR PRN PRN Reason: Cough Clonazepam (Clonazepam 1 Mg Tab) 1 mg PO BID@0600,1700 [facility] Last Admin: 01/13/22 06:14 Dose: 1 mg Cyanocobalamin (Cyanocobalamin 500 Mcg Tab) 1,000 mcg PO DAILY [facility] Dextrose/Water (Dextrose 50% Syringe 50 Ml) 25 ml IVP PER PROTOCOL PRN; Protocol PRN Reason: Hypoglycemia Dextrose/Water (Dextrose 50% Syringe 50 Ml) 50 ml IVP PER PROTOCOL PRN; Protocol PRN Reason: Hypoglycemia Divalproex Sodium (Divalproex Er 500 Mg Tab.Er.24h) 500 mg PO QID [facility] Last Admin: 01/13/22 12:35 Dose: 500 mg Enoxaparin Sodium (Enoxaparin 40 Mg/0.4 Ml Syringe) 40 mg SQ DAILY [facility] Last Admin: 01/13/22 09:41 Dose: 40 mg Folic Acid (Folic Acid 1 Mg Tab) 1 mg PO DAILY [facility] Last Admin: 01/13/22 12:30 Dose: 1 mg Guaifenesin (Guaifenesin 600 Mg Tablet.Er) 600 mg PO Q12HR PRN PRN Reason: Cough Last Admin: 01/13/22 12:30 Dose: 600 mg Lisinopril/HCTZ (Lisinopril-Hctz 10-12.5 Mg 1 Each Tab) 2 each PO DAILY [facility] Last Admin: 01/13/22 09:41 Dose: 2 each Metronidazole 500 mg/ IV (Solution) 100 mls @ 100 mls/hr IVPB Q8H [facility]; Protocol Last Admin: 01/13/22 12:31 Dose: 100 mls/hr Ceftriaxone Sodium 1 gm/ (Sodium Chloride) 50 mls @ 100 mls/hr IVPB Q12HR [facility]; Protocol Last Admin: 01/13/22 09:42 Dose: 100 mls/hr Insulin Aspart (Insulin Aspart (Novolog) 100 Unit/Ml Vial) 0 unit SQ ACHS [facility]; Protocol Last Admin: 01/13/22 12:28 Dose: Not Given Lacosamide (Lacosamide 50 Mg Tablet) 200 mg PO BID [facility] Last Admin: 01/13/22 09:39 Dose: 200 mg Metformin HCl (Metformin 500 Mg Tab) 1,000 mg PO BID@0600,1700 [facility] Last Admin: 01/13/22 06:14 Dose: 1,000 mg Miscellaneous Information (Pneumonia Protocol Utilized 1 Each Misc) 1 each PO ONCE PRN PRN Reason: Per Protocol Naloxone HCl (Naloxone 0.4 Mg/Ml 1 Ml Vial) 0.2 mg IV Q2M PRN PRN Reason: Opioid Reversal Siponimod [Mayzent] 2 mg PO DAILY@0600 [facility] Last Admin: 01/13/22 06:16 Dose: Not Given Olanzapine (Olanzapine 2.5 Mg Tab) 2.5 mg PO DAILY@1200 [facility] Last Admin: 01/13/22 12:34 Dose: 2.5 mg Olanzapine (Olanzapine 5 Mg Tab) 5 mg PO BID@0500,1700 [facility] Last Admin: 01/13/22 06:14 Dose: 5 mg Ondansetron HCl (Ondansetron 4 Mg/2 Ml Vial) 4 mg IVP Q8HR PRN PRN Reason: Nausea And Vomiting Propranolol HCl (Propranolol 40 Mg Tab) 40 mg PO BID [facility] Last Admin: 01/13/22 09:38 Dose: 40 mg Sertraline HCl (Sertraline 100 Mg Tab) 100 mg PO DAILY [facility] Last Admin: 01/13/22 09:38 Dose: 100 mg Past medical history to include: Diabetes, GERD, hyperlipidemia, hypertension, cognitive impairment, osteoarthritis, MS, seizure disorder, sleep apnea, peripheral neuropathy, gas troparesis, chronic cervical lumbar back pain, spinal stimulator, kidney stones, anxiety depression, VNS stability unit Social history: This is a cane sometimes walker. Lives with his . No smoking. No alcohol. Does chew tobacco no. Patient based medical marijuana daily. Physical examination: VITAL SIGNS: 97.8, 63, 17, 1 26 x 72, 93% room air GENERAL: reclining bed, awake, tired. EYES: Pupils equal. Conjunctiva normal. HEENT: External appearance of nose and ears normal, oral cavity grossly normal. NECK: JVD not raised; masses not palpable. HEART: First and second heart sounds are normal; no edema. LUNGS: Respiratory rate increased; decreased breath sound some coarse crackles. ABDOMEN: Soft, nontender, liver spleen not palpable, no masses palpable. PSYCH: Patient able to answer simple questions affect a bit low MUSCULOSKELETAL:No Clubbing/cyanosis;muscles-grossly intact INVESTIGATIONS, reviewed in the clinical context: EEG: Negative for seizure Vitamin B12 [id number] valproic acid 92.5 WBC 8.3 hemoglobin 12.1 platelets 158 potassium 3.8 BUN 42 creatinine 1.63 proBNP 482 UA positive for protein 1+ COVID 19/influenza type A/influenza type B: Not detected HbA1c 6.5 EKG tracing personally reviewed by me-normal sinus rhythm Computed tomography scan brain: No acute intracranial process. Nonspecific white matter changes. CT chest abdomen: Scattered opacities throughout the lung. More so in the lower lobes. Assessment and plan: -Acute pneumonia/pneumonitis, consider gram-negative organism. IV ceftriaxone. Check pro-calcitonin -Depression/depression Zoloft, Zyprexa/Klonopin -GERD/esophagitis PPI -Gastroparesis secondary to diabetes Reglan -Hyperlipidemia Lipitor -Essential hypertension Zestoretic -Seizure disorder Depakote, [place], EEG negative fundus admission. -Moderate cognitive impairment -Chronic multiple sclerosis siponimod. Follows with neurology Matt Hooper -Diabetes mellitus type 2, oral hypoglycemic Diabetic diet. Follow Accu-Cheks. IV ceftriaxone. EEG negative. Follow with neurology. Encourage oral intake. Discussed with the patient at the bedside.
[2022-01-13 20:53] LABS: Glucose,Whole Blood 118 mg/dL (70-110)
--- NOTE | 2022-01-13 22:32 | P.PN ---
Subjective Progress Note Date: 01/13/22 Patient was seen for a follow-up. Patient is laying comfortably in the bed. Patient's was also present. No further seizures reported. Patient wants to go home. Objective - Vital Signs Vital signs: Vital Signs Temp 97.6 F 01/13/22 19:51 Pulse 59 L 01/13/22 19:51 Resp 16 01/13/22 20:00 BP 111/56 01/13/22 19:51 Pulse Ox 93 L 01/13/22 10:27 FiO2 Intake & Output 01/13/22 01/13/22 01/14/22 06:59 18:59 06:59 Intake Total 200 Balance 200 Intake: Intake, IV Titration 200 Amount cefTRIAXone 1 gm In 100 Sodium Chloride 0.9% 50 ml @ 100 mls/hr IVPB Q12HR [facility] Rx#:[id number] metroNIDAZOLE-NS PMX 500 100 mg In Saline 1 100ml.bag @ 100 mls/hr IVPB Q8H [facility] Rx#:[id number] Other: Voiding Method Toilet Toilet Urinal # Voids 2 1 - Exam Patient's examination is unchanged. Patient is laying comfortably in the bed. Speech and language functions are normal. Muscle strength is normal. - Labs CBC & Chem 7: 01/11/22 15:49 01/11/22 15:49 Labs: Abnormal Lab Results - Last 24 Hours (Table) 01/13/22 01/13/22 Range/Units 16:09 20:52 POC Glucose (mg/dL) 117 H 118 H (70-110) mg/dL Microbiology - Last 24 Hours (Table) 01/11/22 19:00 Blood Culture - Preliminary Blood No Growth after 48 hours 01/11/22 18:45 Blood Culture - Preliminary Blood No Growth after 48 hours Assessment and Plan Assessment: * Seizure types spell, unclear if it was a breakthrough seizure. Patient's believes it was his typical pseudoseizure. * Seizure disorder, perhaps mixed seizure disorder. * Multiple sclerosis, currently in remission * Possible pneumonia/pneumonitis * Mild renal insufficiency * Diabetes * Hypertension * Hyperlipidemia Plan: * EEG from 01/12/2022 was normal awake and drowsy. No epileptiform activity was seen. * Continue his current medications including Vimpat 200 mg twice a day and Depakote 500 mg 4 times a day. As it was possible pseudoseizure, we will not make any changes in his seizure medication per * Depakote level therapeutic 92.5 * Hemoglobin A1c 6.5. * Patient's last B12 was 298. Repeat B12 level today is 402. Patient will be given B12 injection 1000 g IM 1 dose. He will continue B12 1000 mcg orally daily. Folic acid is 8.0, which is also borderline. We will start fully tested replacement. * Medical management for pneumonia/pneumonitis as per IM. Patient on ceftriaxone. * Neurologically otherwise clear. Patient follows up with Dr. Justino Rick at Dr. Mays office. Dr. Reno Blake will resume neurology service in the morning.
[2022-01-14] MEDS: metroNIDAZOLE-NS PMX 500 MG in SALINE 1 100ML.BAG IVPB SCH ×2 (02:23→12:17)
[2022-01-14] MEDS ORDERED: CYANOCOBALAMIN 500 MCG TAB PO SCH (09:00)
[2022-01-14 11:37] LABS: Glucose,Whole Blood 136 mg/dL (70-110)
[2022-01-14 11:37] LABS: Glucose,Whole Blood 109 mg/dL (70-110)
[2022-01-14] MEDS: clonazePAM 1 MG TAB PO SCH (12:15)
[2022-01-14] MEDS: OLANZapine 5 MG TAB PO SCH (12:15)
[2022-01-14] MEDS: metFORMIN 500 MG TAB PO SCH (12:16)
[2022-01-14] MEDS: INSULIN ASPART (NovoLOG) 100 UNIT/ML VIAL SQ SCH ×2 (12:16→12:44)
[2022-01-14] MEDS: [UNRECOGNIZED DRUG - OTHER] PO SCH (12:16)
[2022-01-14] MEDS: PROPRANOLOL 40 MG TAB PO SCH (12:17)
[2022-01-14] MEDS: DIVALPROEX ER 500 MG TAB.ER.24H PO SCH ×2 (12:17→12:44)
[2022-01-14] MEDS: SERTRALINE 100 MG TAB PO SCH (12:17)
[2022-01-14] MEDS: LISINOPRIL-HCTZ 10-12.5 MG 1 EACH TAB PO SCH (12:17)
[2022-01-14] MEDS: ENOXAPARIN 40 MG/0.4 ML SYRINGE SQ SCH (12:17)
[2022-01-14] MEDS: FOLIC ACID 1 MG TAB PO SCH (12:19)
[2022-01-14] MEDS: OLANZapine 2.5 MG TAB PO SCH (12:44)
[2022-01-14] MEDS: ATORVASTATIN 20 MG TAB PO SCH (12:44)
[2022-01-14 14:25] VITALS: BP 90/60; PULSE 61; RESP 17; TEMP 98
--- NOTE | 2022-01-14 18:23 | P.DS ---
Providers Date of admission: 01/11/22 18:24 Expected date of discharge: 01/14/22 Attending physician: Bruce Khan Consults: 01/12/22 11:24 Consult Physician Routine Consulting Provider: Woody Schuler Consult Reason/Comments: poss seizures Do you want consulting provider notified?: Yes Primary care physician: [facility] Course: Chief Complaint: Altered mentation I'm rounding for Dr. Bruce Khan. This is a pleasant 56-year-old patient who follows with Dr. Bruce Khan. History is obtained by the at the bedside. Chronic stable medical conditions include diabetes, GERD, hypertension, hyperlipidemia, cognitive impairment, osteoarthritis, multiple sclerosis, after sleep apnea, weekly seizures, peripheral neuropathy, gastroparesis, chronic cervical lumbar back pain, spinal stimulator in place, kidney stones, VNS unit left chest. For 1 week patient is having nausea vomiting from his underlying gastroparesis. That improved. Last one week patient started eating better. No trouble with his BM and urine. Patient follows with neurologist SISI Hooper. Also for last 1 week to some alteration in cognition. By the way patient does get confused at times. Has seizures about once or twice a week. Yesterday noticed to have some blood in his cough. Patient's had a congested cough for last few days. No obvious fever and chills. [place] to have pneumonia in the ER started on Levaquin in the ER. Patient is able to answer simple questions. Patient is able to use a cane to get about. Patient admitted with pneumonia. Decreased appetite. Started on IV ceftriaxone. 01/13/2022: Patient eating some. at the bedside. Appetite still low. Coughing some sputum. Seen by neurology. EEG negative for seizure. 01/14/2022: Patient doing better. Discussed with at the bedside. We'll take him home. He'll follow-up with neurology. Questions answered. We'll complete a course of Ceftin. [place] symptoms better Past medical history to include: Diabetes, GERD, hyperlipidemia, hypertension, cognitive impairment, osteoarthritis, MS, seizure disorder, sleep apnea, peripheral neuropathy, gastroparesis, chronic cervical lumbar back pain, spinal stimulator, kidney stones, anxiety depression, VNS stability unit Social history: This is a cane sometimes walker. Lives with his . No smoking. No alcohol. Does chew tobacco no. Patient based medical marijuana daily. Physical examination: VITAL SIGNS: 98, 61, 17, 110s/55, 93% room air GENERAL: Up in a chair comfortable EYES: Pupils equal. Conjunctiva normal. HEENT: External appearance of nose and ears normal, oral cavity grossly normal. NECK: JVD not raised; masses not palpable. HEART: First and second heart sounds are normal; no edema. LUNGS: Respiratory rate normal; decreased breath sound ABDOMEN: Soft, nontender, liver spleen not palpable, no masses palpable. PSYCH: Patient able to answer simple questions affect a bit low MUSCULOSKELETAL:No Clubbing/cyanosis;muscles-grossly intact INVESTIGATIONS, reviewed in the clinical context: EEG: Negative for seizure Vitamin B12 [id number] valproic acid 92.5 WBC 8.3 hemoglobin 12.1 platelets 158 potassium 3.8 BUN 42 creatinine 1.63 proBNP 482 UA positive for protein 1+ COVID 19/influenza type A/influenza type B: Not detected HbA1c 6.5 EKG tracing personally reviewed by me-normal sinus rhythm Computed tomography scan brain: No acute intracranial process. Nonspecific white matter changes. CT chest abdomen: Scattered opacities throughout the lung. More so in the lower lobes. Assessment and plan: -Acute pneumonia/pneumonitis, consider gram-negative organism.: Improved IV ceftriaxone. Pro-calcitonin 0.16. Complete course with Ceftin -Depression/depression Zoloft, Zyprexa/Klonopin -GERD/esophagitis PPI -Gastroparesis secondary to diabetes Reglan -Hyperlipidemia Lipitor -Essential hypertension Zestoretic -Seizure disorder Depakote, Vimpat, EEG negative. Seen by neurology -Moderate cognitive impairment -Chronic multiple sclerosis siponimod. Follows with neurology Matt Hooper -Diabetes mellitus type 2, oral hypoglycemic Diabetic diet. Follow Accu-Cheks. Disposition: Home Plan - Discharge Summary Discharge Rx Participant: Yes New Discharge Prescriptions: New cefUROXime axetiL [Ceftin] 500 mg PO BID #10 tab Folic Acid 1 mg PO DAILY #30 tab Cyanocobalamin [Vitamin B-12] 1,000 mcg PO DAILY #30 tab Continue metFORMIN HCL [Glucophage] 1,000 mg PO BID@0600,1700 Lacosamide [Vimpat] 200 mg PO BID@0600,1700 Lisinopril-Hctz 10-12.5 mg [Zestoretic 10-12.5] 1 tab PO BID@1200,2200 Ibuprofen [Motrin] 800 mg PO TID PRN PRN Reason: Pain Propranolol [Inderal] 40 mg PO BID@1200,2200 Siponimod [Mayzent] 2 mg PO DAILY@1200 Metoclopramide [Reglan] 5 mg PO TID@0600,1200,1700 Insulin Lispro [humaLOG Kwikpen] See Protocol SQ ACHS PRN PRN Reason: HIGH BLOOD SUGAR Divalproex ER [Depakote ER] 500 mg PO QID@06,,, Sertraline [Zoloft] 100 mg PO DAILY@1200 Omeprazole 40 mg PO BID@0600,2200 OLANZapine [ZyPREXA] 2.5 mg PO DAILY@1200 OLANZapine [ZyPREXA] 5 mg PO BID@0500,1700 clonazePAM [KlonoPIN] 1 mg PO BID@0600,1700 Ferrous Sulfate [Iron (65 MG Elemental)] 325 mg PO DAILY@1700 Atorvastatin [Lipitor] 20 mg PO HS Discontinued Furosemide [Lasix] 20 mg PO DAILY PRN PRN Reason: Edema Discharge Medication List Lacosamide [Vimpat] 200 mg PO BID@0600,1700 02/22/19 [History] metFORMIN HCL [Glucophage] 1,000 mg PO BID@0600,1700 02/22/19 [History] Ibuprofen [Motrin] 800 mg PO TID PRN 05/18/19 [History] Lisinopril-Hctz 10-12.5 mg [Zestoretic 10-12.5] 1 tab PO BID@1200,2200 05/18/19 [History] Divalproex ER [Depakote ER] 500 mg PO QID@06,12,,11/04/20 [History] Propranolol [Inderal] 40 mg PO BID@1200,2200 11/04/20 [History] Siponimod [Mayzent] 2 mg PO DAILY@1200 11/04/20 [History] Atorvastatin [Lipitor] 20 mg PO HS 01/11/22 [History] Ferrous Sulfate [Iron (65 MG Elemental)] 325 mg PO DAILY@1700 01/11/22 [History] Insulin Lispro [humaLOG Kwikpen] See Protocol SQ ACHS PRN 01/11/22 [History] Metoclopramide [Reglan] 5 mg PO TID@0600,1200,1700 01/11/22 [History] OLANZapine [ZyPREXA] 2.5 mg PO DAILY@1200 01/11/22 [History] OLANZapine [ZyPREXA] 5 mg PO BID@0500,1700 01/11/22 [History] Omeprazole 40 mg PO BID@0600,2200 01/11/22 [History] Sertraline [Zoloft] 100 mg PO DAILY@1200 01/11/22 [History] clonazePAM [KlonoPIN] 1 mg PO BID@0600,1700 01/11/22 [History] Cyanocobalamin [Vitamin B-12] 1,000 mcg PO DAILY #30 tab 01/14/22 [Rx] Folic Acid 1 mg PO DAILY #30 tab 01/14/22 [Rx] cefUROXime axetiL [Ceftin] 500 mg PO BID #10 tab 01/14/22 [Rx] Follow up Appointment(s)/Referral(s): Matt Hooper [facility] [REFERRING] - 1 Week Bruce Khan MD [Primary Care Provider] - 1-2 days Patient Instructions/Handouts: Pneumonia (DC) Discharge Disposition: HOME SELF-CARE
== END 2022-01-14 15:56 | disposition home or self-care (01) | DRG 193 ==
LOC: EC 14:21 → 4SSUR 18:24
PROVIDERS: ADMIT Family Medicine; ATTEND Family Medicine
PROC: 4A10X4Z Monitoring of Central Nervous Electrical Activity, External Approach (ICD-10-PCS; principal; 2022-01-12)
DX: J18.9 Pneumonia, unspecified organism (principal); G93.41 Metabolic encephalopathy; F32.A Depression, unspecified; K21.00 Gastro-esophageal reflux disease with esophagitis, without bleeding; K31.84 Gastroparesis; E11.43 Type 2 diabetes mellitus with diabetic autonomic (poly)neuropathy; E78.5 Hyperlipidemia, unspecified; I12.9 Hypertensive chronic kidney disease with stage 1 through stage 4 chronic kidney disease, or unspecified chronic kidney disease; N18.9 Chronic kidney disease, unspecified; G40.909 Epilepsy, unspecified, not intractable, without status epilepticus; G35 Multiple sclerosis; E11.42 Type 2 diabetes mellitus with diabetic polyneuropathy; F41.9 Anxiety disorder, unspecified; E11.22 Type 2 diabetes mellitus with diabetic chronic kidney disease; E11.649 Type 2 diabetes mellitus with hypoglycemia without coma; Z20.822 Contact with and (suspected) exposure to COVID-19; D64.9 Anemia, unspecified; G47.00 Insomnia, unspecified; I45.9 Conduction disorder, unspecified; M19.90 Unspecified osteoarthritis, unspecified site; G89.29 Other chronic pain; N20.0 Calculus of kidney; W19.XXXA Unspecified fall, initial encounter; Z79.82 Long term (current) use of aspirin; Z79.84 Long term (current) use of oral hypoglycemic drugs; Z79.899 Other long term (current) drug therapy; Z88.0 Allergy status to penicillin; Z98.1 Arthrodesis status; Z98.42 Cataract extraction status, left eye; Z98.41 Cataract extraction status, right eye; Z96.1 Presence of intraocular lens; Z82.5 Family history of asthma and other chronic lower respiratory diseases; Z82.49 Family history of ischemic heart disease and other diseases of the circulatory system; Z91.81 History of falling; E11.40 Type 2 diabetes mellitus with diabetic neuropathy, unspecified; Z88.8 Allergy status to other drugs, medicaments and biological substances; Z88.6 Allergy status to analgesic agent
CPT/HCPCS: 36415; 70450; 71045; 71250; 74150; 80053; 80164; 81001; 82550; 82607; 82746; 83036; 83605; 83880; 84145; 84484; 85025; 85610; 85730; 87040; 87070; 87205; 87502; 87635; 93005; 95816; 96365; 96366; 96368; 96375; 99284; 99285

== ENCOUNTER 2022-04-06 12:21 | Inpatient (IN) | payer BC, MEDICARE ==
[2022-04-06] MEDS ORDERED: ACETAMINOPHEN TAB 500 MG TAB PO STA (13:12)
[2022-04-06] MEDS ORDERED: SODIUM CHLORIDE 0.9% 1,000 ML IV STA ×2 (13:12→14:12)
[2022-04-06] MEDS ORDERED: DEXAMETHASONE SOD PHOSPHATE 10 MG/ML 1 ML VIAL IV STA (13:14)
--- NOTE | 2022-04-06 13:15 | ED ---
General Adult HPI - General Chief complaint: Shortness of Breath Stated complaint: left sided rib pain, cough Time Seen by Provider: 04/06/22 12:52 Source: patient, family Mode of arrival: ambulatory Limitations: no limitations - History of Present Illness Initial comments: Dictation was produced using [employer] dictation software. please excuse any g rammatical, word or spelling errors. Chief Complaint: 56-year-old male with multiple comorbidities presents emergency department for worsening weakness History of Present Illness: Patient is a 56-year-old male presents emergency department for worsening weakness he has multiple comorbidities. Patient is diagnosed with COVID-19 after positive home test last week. He is been symptom atic for approximately 9-10 days. Discomfort in by his who provides history of present illness. Patient states that he feels very weak and has body aches. Has not been eating or drinking. He does have mild constitutional symptoms. He has a cough that is nonproductive. The ROS documented in this emergency department record has been reviewed and confirmed by me. Those systems with pertinent positive or negative responses have been documented in the HPI. All other systems are other negative and/or noncontributory. PHYSICAL EXAM: General Impression: Alert and oriented x3, not in acute distress HEENT: Normocephalic atraumatic, extra-ocular movements intact, pupils equal and reactive to light bilaterally, mucous membranes moist. Cardiovascular: Heart regular rate and rhythm Chest: Coughing, diffuse crackles Abdomen: abdomen soft, non-tender, non-distended, no organomegaly Musculoskeletal: Pulses present and equal in all extremities, no peripheral edema Motor: no focal deficits noted Neurological: CN II-XII grossly intact, no focal motor or sensory deficits noted Skin: Intact with no visualized rashes Psych: Normal affect and mood ED course: 56-year-old male presents emergency department for worsening weakness. Diagnosed with COVID-19 last week after having had positive Covid test. Vital signs upon arrival shows temperature 100.4 90% on room air. Rest vital signs within acceptable limits. Repeat blood pressure at the bedside was low measuring 81/45 Nursing notes and chart review was performed My EKG interpretation: Interpretations limited due to significant artifact. Ventricular rate 94, sinus rhythm,. Interval 144, QRS 109, QTc 380. No MD pr olongation, no QTC prolongation, no ST or T-wave changes noted. Laboratory evaluation obtained. Mild leukocytosis 12.5. Hemoglobin 11.6. His carotids baseline. Coag panel is negative. Metabolic panel is within acceptable limits. Patient COVID-19 positive. Chest x-ray shows lingular infiltrate possible for pneumonia. Patient cefepime. Patient given IV fluids and has been having waxing and waning blood pressures. Given patient's hypotension he'll be admitted to ICU. Case discussed with Dr. Barr who is agreeable for patient to be admitted to the ICU. Dr. Castellano will be accepting patients care. Was pt. sent in by a medical professional or institution (, PA, INSTRUCTOR MODELING, urgent care, hospital, or custodial...) When possible be specific @ -No Did you speak to anyone other than the patient for history (EMS, parent, family, police, friend...)? What history was obtained from this source @ - at the bedside Did you review nursing and triage notes (agree or disagree)? Why? @ -I reviewed and agree with nursing and triage notes Were old charts reviewed (outside hosp., previous admission, EMS record, old EKG, old radiological studies, urgent care reports/EKG's, custodial records)? Report findings @ -No old charts were reviewed Differential Diagnosis (chest pain, altered mental status, abdominal pain women, abdominal pain men, vaginal bleeding, weakness, fever, dyspnea, syncope, headache, dizziness, GI bleed, back pain, seizure, CVA, palpatations, mental health)? @ -Differential Weakness: Hypoglycemia, shock, sepsis, hyponatremia, anemia, infection, LA, ETOH, adverse medicine reaction, overdose, stroke, this is not meant to be an all-inclusive list. EKG interpreted by me (3pts min.). @ -As above X-rays interpreted by me (1pt min.). @ -As above CT interpreted by me (1pt min.). @ -None done U/S interpreted by me (1pt. min.). @ -None done What testing was considered but not performed or refused? (CT, X-rays, U/S, labs)? Why? @ -See above What meds were considered but not given or refused? Why? @ -IV processes were considered however patient's blood pressure seems to be responding to IV fluids Did you discuss the management of the patient with other professionals (professionals i.e. , PA, INSTRUCTOR MODELING, lab, RT, psych nurse, child protective services social worker, corporate tax preparer, teacher, collections officer, patient case coordinator)? Give summary @ -See above Was smoking cessation discussed for >3mins.? @ -No Was critical care preformed (if so, how long)? @ -GYes, 33 minutes Were there social determinants of health that impacted care today? How? (H omelessness, low income, unemployed, alcoholism, drug addiction, transportation, low edu. Level, literacy, decrease access to med. care, shelter, rehab)? @ -No Was there de-escalation of care discussed even if they declined (Discuss DNR or withdrawal of care, Hospice)? DNR status @ -No What co-morbidities impacted this encounter? (DM, HTN, Smoking, COPD, CAD, Cancer, CVA, ARF, Chemo, Hep., AIDS, mental health diagnosis, sleep apnea, morbid obesity)? @ -Multiple sclerosis, seizure disorder Was patient admitted / discharged? Hospital course, mention meds given and route, prescriptions, significant lab abnormalities, going to OR and other pertinent info. @ -See above Undiagnosed new problem with uncertain prognosis? @ -No Drug Therapy requiring intensive monitoring for toxicity (Heparin, Nitro, Insulin, Cardizem)? @ -No Were any procedures done? @ -No Diagnosis/symptom? @ -COVID-19, hypotension Acute, or Chronic, or Acute on Chronic? @ -Acute Uncomplicated (without systemic symptoms) or Complicated (systemic symptoms)? @ -Complicated Side effects of treatment? @ -No Exacerbation, Progression, or Severe Exacerbation? @ -No Poses a threat to life or bodily function? How? (Chest pain, USA, LA, pneumonia, PE, COPD, DKA, ARF, appy, cholecystitis, CVA, Diverticulitis, Homicidal, Suicidal, threat to staff... and all critical care pts) @ -yes - Related Data Home Medications Medication Instructions Recorded Confirmed Lacosamide [Vimpat] 200 mg PO BID@0600,1700 02/22/19 04/06/22 metFORMIN HCL [Glucophage] 1,000 mg PO BID@0600,1700 /04/06/22 Lisinopril-Hctz 10-12.5 mg 1 tab PO BID@1200,2200 05/18/19 04/06/22 [Zestoretic 10-12.5] Divalproex ER [Depakote ER] 500 mg PO QID@06,12,17,11/04/20 04/06/22 Propranolol [Inderal] 40 mg PO BID@1200,2200 11/04/20 04/06/22 Siponimod [Mayzent] 2 mg PO DAILY@1200 11/04/20 04/06/22 Ferrous Sulfate [Iron (65 MG 325 mg PO DAILY@1700 01/11/22 04/06/22 Elemental)] Insulin Lispro [humaLOG Kwikpen] See Protocol SQ ACHS PRN 01/11/22 04/06/22 Metoclopramide [Reglan] 5 mg PO TID@0600,1200,1700 01/11/22 04/06/22 OLANZapine [ZyPREXA] 2.5 mg PO DAILY@1200 01/11/22 04/06/22 OLANZapine [ZyPREXA] 5 mg PO BID@0500,1700 01/11/22 04/06/22 Omeprazole 40 mg PO BID@0600,2200 01/11/22 04/06/22 Sertraline [Zoloft] 100 mg PO DAILY@1200 01/11/22 04/06/22 clonazePAM [KlonoPIN] 1 mg PO BID@0600,1700 01/11/22 04/06/22 Furosemide [Lasix] 20 mg PO DAILY@0600 04/06/22 04/06/22 Allergies Allergy/AdvReac Type Severity Reaction Status Date / Time Penicillins Allergy Severe Swelling Verified 04/06/22 14:20 prochlorperazine AdvReac Severe Hallucinati Verified 04/06/22 14:20 [From Compazine] ons prochlorperazine edisylate AdvReac Severe Hallucinati Verified 04/06/22 14:20 [From Compazine] ons prochlorperazine maleate AdvReac Severe Hallucinati Verified 04/06/22 14:20 [From Compazine] ons bupropion HCl AdvReac Intermediate Nausea & Verified 04/06/22 14:20 [From Wellbutrin] Vomiting gabapentin [From Neurontin] AdvReac Intermediate Nausea & Verified 04/06/22 14:20 Vomiting amantadine AdvReac Unknown Nausea & Verified 04/06/22 14:20 Vomiting Review of Systems ROS Statement: Those systems with pertinent positive or pertinent negative responses have been documented in the HPI. ROS Other: All systems not noted in ROS Statement are negative. Past Medical History Past Medical History: Chest Pain / Angina, Diabetes Mellitus, Eye Disorder, GERD/Reflux, Hyperlipidemia, Hypertension, Memory Impairment, Musculoskeletal Disorder, Neurologic Disorder, Osteoarthritis (OA), Pneumonia, Renal Disease, Seizure Disorder, Sleep Apnea/CPAP/BIPAP Additional Past Medical History / Comment(s): MS, several brain lesions, possible progressive brain injury, seizures daily-last seizure 09/21/19, IDDM type II, neuropathy L side body, gastroparesis, chronic cervical and lumbar back pain, spinal stimulator in place, L nephrolithiasis, anemia, insomnis, BLANE- cannot tolerate device, occasional bilateral leg edema-uses lasix prn. History of Any Multi-Drug Resistant Organisms: None Reported Past Surgical History: Back Surgery, Heart Catheterization, Orthopedic Surgery, Tonsillectomy Additional Past Surgical History / Comment(s): VNS unit L chest, spinal stimulator, lumbar fusion/cage, Cspine fusion, L knee arthroscopy, bilateral cataract removals/lens implants Past Anesthesia/Blood Transfusion Reactions: No Reported Reaction Past Psychological History: Anxiety, Depression Smoking Status: Vaper Past Alcohol Use History: Occasional Past Drug Use History: Marijuana - Past Family History Mother Family Medical History: COPD, Hypertension Father Family Medical History: Coronary Artery Disease (CAD), Myocardial Infarction (LA) Additional Family Medical History / Comment(s): cabg. Father had a Mi at the age of 55 yrs. Heart disease runs strong on father's side of family. General Exam Limitations: no limitations Course Vital Signs 04/06/22 04/06/22 04/06/22 12:26 14:10 15:00 Temperature 100.4 F H 98.7 F Pulse Rate 100 89 89 Respiratory 22 20 22 Rate Blood Pressure 135/84 78/40 94/68 O2 Sat by Pulse 93 L 93 L 93 L Oximetry Medical Decision Making - Lab Data Result diagrams: 04/06/22 13:08 04/06/22 13:08 Lab Results 04/06/22 04/06/22 04/06/22 Range/Units 13:08 13:08 13:08 WBC 12.5 H (3.8-10.6) k/uL RBC 3.45 L (4.30-5.90) m/uL Hgb 11.6 L (13.0-17.5) gm/dL Hct 33.8 L (39.0-53.0) % MCV 98.1 (80.0-100.0) fL MCH 33.7 (25.0-35.0) pg MCHC 34.3 (31.0-37.0) g/dL RDW 12.7 (11.5-15.5) % Plt Count 184 (150-450) k/uL MPV 8.1 Neutrophils % (Manual) 67 % Band Neuts % (Manual) 12 % Lymphocytes % (Manual) 5 % Monocytes % (Manual) 16 % Metamyelocytes % 1 % Neutrophils # (Manual) 9.80 H (1.3-7.7) k/uL Lymphocytes # (Manual) 0.63 L (1.0-4.8) k/uL Monocytes # (Manual) 2.00 H (0-1.0) k/uL Metamyelocytes # (Man) 0.13 H (0) k/uL Nucleated RBCs 0 (0-0) /100 WBC Manual Slide Review Performed PT 11.7 (9.0-12.0) sec INR 1.1 (<1.2) APTT 23.5 (22.0-30.0) sec Sodium 137 (137-145) mmol/L Potassium 4.1 (3.5-5.1) mmol/L Chloride 104 (98-107) mmol/L Carbon Dioxide 22 (22-30) mmol/L Anion Gap 11 mmol/L BUN 31 H (9-20) mg/dL Creatinine 2.06 H (0.66-1.25) mg/dL Est GFR (CKD-EPI)AfAm 41 (>60 ml/min/1.73 sqM) Est GFR (CKD-EPI)NonAf 36 (>60 ml/min/1.73 sqM) Glucose 133 H (74-99) mg/dL Calcium 8.9 (8.4-10.2) mg/dL Troponin I (0.000-0.034) ng/mL Influenza Type A (PCR) (Not Detectd) Influenza Type B (PCR) (Not Detectd) RSV (PCR) (Not Detectd) SARS-CoV-2 (PCR) (Not Detectd) 04/06/22 04/06/22 Range/Units 13:08 13:08 WBC (3.8-10.6) k/uL RBC (4.30-5.90) m/uL Hgb (13.0-17.5) gm/dL Hct (39.0-53.0) % MCV (80.0-100.0) fL MCH (25.0-35.0) pg MCHC (31.0-37.0) g/dL RDW (11.5-15.5) % Plt Count (150-450) k/uL MPV Neutrophils % (Manual) % Band Neuts % (Manual) % Lymphocytes % (Manual) % Monocytes % (Manual) % Metamyelocytes % % Neutrophils # (Manual) (1.3-7.7) k/uL Lymphocytes # (Manual) (1.0-4.8) k/uL Monocytes # (Manual) (0-1.0) k/uL Metamyelocytes # (Man) (0) k/uL Nucleated RBCs (0-0) /100 WBC Manual Slide Review PT (9.0-12.0) sec INR (<1.2) APTT (22.0-30.0) sec Sodium (137-145) mmol/L Potassium (3.5-5.1) mmol/L Chloride (98-107) mmol/L Carbon Dioxide (22-30) mmol/L Anion Gap mmol/L BUN (9-20) mg/dL Creatinine (0.66-1.25) mg/dL Est GFR (CKD-EPI)AfAm (>60 ml/min/1.73 sqM) Est GFR (CKD-EPI)NonAf (>60 ml/min/1.73 sqM) Glucose (74-99) mg/dL Calcium (8.4-10.2) mg/dL Troponin I <0.012 (0.000-0.034) ng/mL Influenza Type A (PCR) Not Detected (Not Detectd) Influenza Type B (PCR) Not Detected (Not Detectd) RSV (PCR) Not Detected (Not Detectd) SARS-CoV-2 (PCR) Detected A (Not Detectd) Disposition Clinical Impression: COVID-19, Hypotension Disposition: ADMITTED IP TO THIS [facility] Condition: Critical Referrals: Bruce Khan MD [Primary Care Provider] - 1-2 days Decision Time: 15:58
[2022-04-06 13:49] LABS: Calcium 8.9 mg/dL (8.4-10.2)
--- NOTE | 2022-04-06 13:52 | XR ---
EXAMINATION TYPE: XR chest 2V DATE OF EXAM: 04/06/2022 COMPARISON: 01/12/22 HISTORY: Shortness of breath TECHNIQUE: Frontal and lateral views of the chest are obtained. FINDINGS: Scattered senescent parenchymal changes noted. Hyperinflation compatible with COPD. Lingular infiltrate. Correlate for pneumonia. Heart size is stable. Mediastinal structures are stable and grossly unremarkable. No evidence for hilar prominence. Degenerative changes dorsal spine. IMPRESSION: 1. Lingular infiltrate. Correlate for pneumonia.
[2022-04-06 13:55] LABS: INR 1.1 (<1.2); Partial Thromboplastin Time 23.5 sec (22.0-30.0); Potassium 4.1 mmol/L (3.5-5.1); Prothrombin Time 11.7 sec (9.0-12.0)
[2022-04-06 13:57] LABS: HCT 33.8 % (39.0-53.0); HGB 11.6 gm/dL (13.0-17.5); MCH 33.7 pg (25.0-35.0); MCHC 34.3 g/dL (31.0-37.0); MCV 98.1 fL (80.0-100.0); Mean Platelet Volume 8.1; Platelet Count 184 k/uL (150-450); RBC 3.45 m/uL (4.30-5.90); RDW 12.7 % (11.5-15.5); WBC 12.5 k/uL (3.8-10.6)
[2022-04-06 14:20] LABS: Band Neutrophils % 12 %; Lymphocytes # (M) 0.63 k/uL (1.0-4.8); Metamyelocytes # (M) 0.13 k/uL (0); Metamyelocytes % 1 %; Neutrophils % (M) 67 %; Nucleated Red Blood Cells 0 /100 WBC (0-0); Total Cells Counted 200
[2022-04-06] MEDS ORDERED: CEFEPIME 2 GM in SODIUM CHLORIDE 0.9% 100 ML IVPB STA (14:29)
[2022-04-06] MEDS ORDERED: NALOXONE 0.4 MG/ML 1 ML VIAL IV PRN (15:29)
--- NOTE | 2022-04-06 16:19 | P.CNPUL ---
History of Present Illness Consult date: 04/06/22 Reason for consult: dyspnea History of present illness: A very pleasant 56-year-old male patient came into the hospital because of worsening weakness and shortness of breath and cough and congestion. The patient and his what infected with Covid 19 back into their last week. As such, this is at least 9 days post infection. His has further recovered. The patient himself has received Nav & Nav vaccination for Covid 192 do ses and this is his first infection with Covid 19. The patient came in the hospital because of increased cough and congestion. He was having diarrhea last week and his diarrhea has settled. No emesis. His oral intake is quite diminished and the patient was essentially drinking liquids. Urine emergency, the patient tested again positive for Covid 19. The chest x-ray showed a lingular pulmonary infiltrate. The patient received a total of 2 L of IV fluids and the most recent blood pressure is still low with a systolic in the low 80s. As such, I see consultation was requested based on the fact that he hypotension. Note that the patient was not done typically low blood pressure. He was febrile with a T-max of 100.4. The vesicles at 12.7 with a hemoglobin 11.6 and a platelet of 184. Is at 31 with a creatinine of 2.06 and a sodium level is at 137. Cognition profile was normal. His influenza screen was negative. RSV was negative. Troponin was negative. The patient is awake and alert. He is communicating. He has history of MS and is quite debilitated and is having difficulties with mobility and gait. He has neurogenic bladder. Denies having any recurrent infections. No aspiration. No pulmonary source. No recurrent pneumonias.the patient is currently on 2 L of O2 nasal cannula. Review of Systems Constitutional: Reports fatigue, Reports fever, Reports lethargy, Reports weakness Eyes: bilateral blurred vision, denies as per HPI, denies bulging eye, denies decreased vision, denies diplopia, denies discharge, denies dry eye, denies irritation, denies itching, denies pain, denies photophobia, denies loss of peripheral vision, denies loss of vision, denies tunnel vision/blind spots Ears: deny: decreased hearing, ear discharge, earache, tinnitus Ears, nose, mouth and throat: Reports as per HPI Breasts: absent: as per HPI, gynecomastia Cardiovascular: Reports decreased exercise tolerance, Reports dyspnea on exertion Respiratory: Reports cough, Reports dyspnea, Reports wheezing Gastrointestinal: Reports as per HPI Genitourinary: Reports urinary frequency Musculoskeletal: Reports as per HPI, Reports gait dysfunction, Reports muscle weakness Musculoskeletal: absent: ankle pain, ankle stiffness, ankle swelling, as per HPI, elbow pain, elbow stiffness, elbow swelling, foot pain, foot stiffness, foot swelling, hand pain, hand stiffness, hand swelling, hip pain, hip st iffness, hip swelling, knee pain, knee stiffness, knee swelling, shoulder pain, shoulder stiffness, shoulder swelling, wrist pain, wrist stiffness, wrist swelling Integumentary: Reports as per HPI Neurological: Reports balance difficulties, Reports gait dysfunction, Reports motor disturbance, Reports seizures, Reports weakness, Reports visual changes Psychiatric: Reports as per HPI Endocrine: Reports as per HPI Hematologic/Lymphatic: Reports as per HPI Allergic/Immunologic: Reports as per HPI Past Medical History Past Medical History: Chest Pain / Angina, Diabetes Mellitus, Eye Disorder, GERD/Reflux, Hyperlipidemia, Hypertension, Memory Impairment, Musculoskeletal Disorder, Neurologic Disorder, Osteoarthritis (OA), Pneumonia, Renal Disease, Seizure Disorder, Sleep Apnea/CPAP/BIPAP Additional Past Medical History / Comment(s): MS, several brain lesions, possible progressive brain injury, seizures daily-last seizure 09/21/19, IDDM type II, neuropathy L side body, gastroparesis, chronic cervical and lumbar back pain, spinal stimulator in place, L nephrolithiasis, anemia, insomnis, BLANE- cannot tolerate device, occasional bilateral leg edema-uses lasix prn. History of Any Multi-Drug Resistant Organisms: None Reported Past Surgical History: Back Surgery, Heart Catheterization, Orthopedic Surgery, Tonsillectomy Additional Past Surgical History / Comment(s): VNS unit L chest, spinal stimulator, lumbar fusion/cage, Cspine fusion, L knee arthroscopy, bilateral cataract removals/lens implants Past Anesthesia/Blood Transfusion Reactions: No Reported Reaction Past Psychological History: Anxiety, Depression Smoking Status: Vaper Past Alcohol Use History: Occasional Past Drug Use History: Marijuana - Past Family History Mother Family Medical History: COPD, Hypertension Father Family Medical History: Coronary Artery Disease (CAD), Myocardial Infarction ([place]) Additional Family Medical History / Comment(s): cabg. Father had a Mi at the age of 55 yrs. Heart disease runs strong on father's side of family. Medications and Allergies Home Medications Medication Instructions Recorded Confirmed Type Lacosamide [Vimpat] 200 mg PO BID@0600,1700 02/22/19 04/06/22 History metFORMIN HCL [Glucophage] 1,000 mg PO BID@0600,1700 02/22/19 04/06/22 History Lisinopril-Hctz 10-12.5 mg 1 tab PO BID@1200,2200 05/18/19 04/06/22 History [Zestoretic 10-12.5] Divalproex ER [Depakote ER] 500 mg PO QID@06,12,,11/04/20 04/06/22 History Propranolol [Inderal] 40 mg PO BID@1200,2200 11/04/20 04/06/22 History Siponimod [Mayzent] 2 mg PO DAILY@1200 11/04/20 04/06/22 History Ferrous Sulfate [Iron (65 MG 325 mg PO DAILY@1700 01/11/22 04/06/22 History Elemental)] Insulin Lispro [humaLOG Kwikpen] See Protocol SQ ACHS PRN 01/11/22 04/06/22 History Metoclopramide [Reglan] 5 mg PO TID@0600,1200,1700 01/11/22 04/06/22 History OLANZapine [ZyPREXA] 2.5 mg PO DAILY@1200 01/11/22 04/06/22 History OLANZapine [ZyPREXA] 5 mg PO BID@0500,1700 01/11/22 04/06/22 History Omeprazole 40 mg PO BID@0600,2200 01/11/22 04/06/22 History Sertraline [Zoloft] 100 mg PO DAILY@1200 01/11/22 04/06/22 History clonazePAM [KlonoPIN] 1 mg PO BID@0600,1700 01/11/22 04/06/22 History Furosemide [Lasix] 20 mg PO DAILY@0600 04/06/22 04/06/22 History Allergies Allergy/AdvReac Type Severity Reaction Status Date / Time Penicillins Allergy Severe Swelling Verified 04/06/22 14:20 prochlorperazine AdvReac Severe Hallucinati Verified 04/06/22 14:20 [From Compazine] ons prochlorperazine edisylate AdvReac Severe Hallucinati Verified 04/06/22 14:20 [From Compazine] ons prochlorperazine maleate AdvReac Severe Hallucinati Verified 04/06/22 14:20 [From Compazine] ons bupropion HCl AdvReac Intermediate Nausea & Verified 04/06/22 14:20 [From Wellbutrin] Vomiting gabapentin [From Neurontin] AdvReac Intermediate Nausea & Verified 04/06/22 14:20 Vomiting amantadine AdvReac Unknown Nausea & Verified 04/06/22 14:20 Vomiting Physical Exam Vitals: Vital Signs Temp Pulse Resp BP Pulse Ox 04/06/22 15:50 85 18 87/44 93 L 04/06/22 15:40 86 23 76/44 90 L 04/06/22 15:00 89 22 94/68 93 L 04/06/22 14:10 98.7 F 89 20 78/40 93 L 04/06/22 12:26 100.4 F H 100 22 135/84 93 L Intake and Output 04/06/22 04/06/22 04/06/22 06:59 14:59 22:59 Other: Weight 104.326 kg Calm and comfortable having frequent coughing episodes and currently on 2 L of O2 nasal cannula. Breathing is nonlabored. Head exam was generally normal. There was no scleral icterus or corneal arcus. Mucous membranes were moist. Neck was supple and without jugular venous distension, thyromegaly, or carotid bruits. Carotids were easily palpable bilaterally. There was no adenopathy. Lungs are diminished bilaterally and there is scattered rhonchi and wheezes heard throughout the lung mckeon bilaterally Cardiac exam revealed the PMI to be normally situated and sized. The rhythm was regular and no extrasystoles were noted during several minutes of auscultation. The first and second heart sounds were normal and physiologic splitting of the second heart sound was noted. There were no murmurs, rubs, clicks, or gallops. Abdominal exam revealed normal bowel sounds. The abdomen was soft, non-tender, and without masses, organomegaly, or appreciable enlargement of the abdominal aorta. Extremities show muscle atrophy. No thoracic relations. No cyanosis or clubbing. Examination of the skin revealed no evidence of significant rashes, suspicious appearing nevi or other concerning lesions. Neurologically the patient is awake and alert. Generalized motor weakness in all 4 extremities. Gait was not assessed. Results - Laboratory Findings CBC and BMP: 04/06/22 13:08 04/06/22 13:08 PT/INR, D-dimer PT 11.7 sec (9.0-12.0) 04/06/22 13:08 INR 1.1 (<1.2) 04/06/22 13:08 Abnormal lab findings: Abnormal Labs 04/06/22 04/06/22 04/06/22 13:08 13:08 13:08 WBC 12.5 H RBC 3.45 L Hgb 11.6 L Hct 33.8 L Neutrophils # (Manual) 9.80 H Lymphocytes # (Manual) 0.63 L Monocytes # (Manual) 2.00 H Metamyelocytes # (Man) 0.13 H BUN 31 H Creatinine 2.06 H Glucose 133 H SARS-CoV-2 (PCR) Detected A - Diagnostic Findings Chest x-ray: image reviewed Assessment and Plan Plan: Hypotension, likely on the basis of dehydration with possibly an underlying septic component. The patient was infected with Covid 19 increased a week ago. Nevertheless, he tested positive again and the patient is coming in with lower blood pressure, not responsive to 2 L of IV fluids. A third liter will be given and following that the patient is going to be considered for pressors. We're going also to start a septic workup and cover the patient with empiric antibiotics and utilize pressors if needed. Chest x-ray showing a lingular inf iltrate. Acute Covid 19 infection diagnosed more than a week ago. Patient has received Nav & Nav vaccination 2 Acute kidney injury and the creatinine is up to 2.0 Suspect bacterial superinfection with a lingular pneumonia/infiltrate History of multiple sclerosis with manifestations of multiple sclerosis and the patient is quite debilitated and currently walking around with help of assisting devices such as cane and a walker. History of seizure disorder History of diabetes mellitus type 2 with diabetic gastroparesis and peripheral neuropathy History of kidney stones Obstructive sleep apnea not using a device Plan Admit the patient to the intensive care unit Give the third liter bolus of normal saline *The patient a maintenance of 130 mL an hour normal saline Cover the patient with a combination of cefepime and Levaquin Check urine cultures and blood cultures Check UA Obtain sputum Gram stain and culture Pro calcitonin level Pressors if needed IAV Decadron 6 mg by mouth 24 hours regarding his Covid 19 Multivitamins including vitamin C and vitamin D as recommended for Covid 19 Resume all medications Sliding-scale insulin coverage Monitor renal function We'll continue to follow
[2022-04-06] MEDS: SODIUM CHLORIDE 0.9% 1,000 ML IV STA ×2 (17:01→19:19)
[2022-04-06 17:55] LABS: Glucose,Whole Blood 135 mg/dL (70-110)
[2022-04-06] MEDS ORDERED: SODIUM CHLORIDE 0.9% 1,000 ML IV ONE (18:17)
[2022-04-06] MEDS: SODIUM CHLORIDE 0.9% 1,000 ML IV SCH (19:19)
[2022-04-06] MEDS: NOREPINEPHRINE 4 MG in SODIUM CHLORIDE 0.9% 250 ML IV SCH (19:23)
[2022-04-06 21:10] LABS: Glucose,Whole Blood 142 mg/dL (70-110)
[2022-04-06] MEDS: INSULIN ASPART (NovoLOG) 100 UNIT/ML VIAL SQ SCH (21:46)
[2022-04-06] MEDS: PANTOPRAZOLE 40 MG TABLET PO SCH (22:57)
[2022-04-06] MEDS: DIVALPROEX ER 500 MG TAB.ER.24H PO SCH (22:58)
[2022-04-06] MEDS: ASCORBIC ACID 500 MG TAB PO SCH (22:58)
[2022-04-06 23:07] LABS: Appearance,Urine Clear (Clear); Bilirubin,Urine Negative (Negative); Blood,Urine Negative (Negative); Color,Urine Light Yellow; Glucose,Urine (UA) Negative (Negative); Ketones,Urine Negative (Negative); Leukocyte Esterase,Urine Negative (Negative); Nitrite,Urine Negative (Negative); PH, Urine 5.5 (5.0-8.0); Protein,Urine Negative (Negative); Specific Gravity,Urine 1.007 (1.001-1.035); Urobilinogen,Urine <2.0 mg/dL (<2.0)
[2022-04-06] MEDS: LISINOPRIL-HCTZ 10-12.5 MG 1 EACH TAB PO SCH (23:07)
[2022-04-06] MEDS: PROPRANOLOL 40 MG TAB PO SCH (23:08)
[2022-04-07] MEDS ORDERED: CEFEPIME 2 GM in SODIUM CHLORIDE 0.9% 100 ML IVPB SCH (05:00)
[2022-04-07] MEDS: clonazePAM 1 MG TAB PO SCH ×2 (06:07→17:07)
[2022-04-07] MEDS: LACOSAMIDE 50 MG TABLET PO SCH ×2 (06:07→17:07)
[2022-04-07] MEDS: DIVALPROEX ER 500 MG TAB.ER.24H PO SCH ×4 (06:07→21:11)
[2022-04-07] MEDS: OLANZapine 5 MG TAB PO SCH ×2 (06:07→17:11)
[2022-04-07] MEDS: METOCLOPRAMIDE 5 MG TAB PO SCH ×3 (06:08→17:11)
[2022-04-07] MEDS: FUROSEMIDE 20 MG TAB PO SCH (06:08)
[2022-04-07] MEDS: PANTOPRAZOLE 40 MG TABLET PO SCH ×2 (06:08→21:11)
[2022-04-07] MEDS: metFORMIN 500 MG TAB PO SCH ×2 (06:09→17:07)
[2022-04-07 06:16] LABS: Glucose,Whole Blood 103 mg/dL (70-110)
[2022-04-07 06:17] LABS: HCT 29.5 % (39.0-53.0); MCH 33.2 pg (25.0-35.0); MCHC 33.3 g/dL (31.0-37.0); MCV 99.8 fL (80.0-100.0); Mean Platelet Volume 7.5; Platelet Count 197 k/uL (150-450); RBC 2.96 m/uL (4.30-5.90); RDW 12.8 % (11.5-15.5); WBC 17.1 k/uL (3.8-10.6)
[2022-04-07 06:29] LABS: Calcium 8.1 mg/dL (8.4-10.2); Potassium 4.2 mmol/L (3.5-5.1)
[2022-04-07 06:38] LABS: HGB 9.8 gm/dL (13.0-17.5)
[2022-04-07] MEDS: INSULIN ASPART (NovoLOG) 100 UNIT/ML VIAL SQ SCH ×4 (06:52→21:18)
[2022-04-07 07:03] LABS: Band Neutrophils % 8 %; Metamyelocytes # (M) 0.51 k/uL (0); Metamyelocytes % 3 %; Monocytes # (M) 1.03 k/uL (0-1.0); Neutrophils % (M) 78 %; Nucleated Red Blood Cells 0 /100 WBC (0-0); Total Cells Counted 200
[2022-04-07 07:05] LABS: RBC Morphology Normal
--- NOTE | 2022-04-07 07:17 | XR ---
EXAMINATION TYPE: XR chest 1V portable DATE OF EXAM: 04/07/2022 COMPARISON: 04/06/2022 INDICATION: Short of breath,covid TECHNIQUE: Single frontal view of the chest is obtained. FINDINGS: The heart size is normal. The pulmonary vasculature is normal. There is a patchy infiltrate at the left costophrenic angle. Pneumonia should be considered. Atypical pneumonia is within the differential. Stimulator leads are in the mid thoracic region. Electronic device overlies left chest. IMPRESSION: 1. Left basilar infiltrate. Correlate for pneumonia or atypical pneumonia.
[2022-04-07] MEDS: SODIUM CHLORIDE 0.9% 1,000 ML IV SCH ×3 (08:00→13:07)
[2022-04-07] MEDS: NOREPINEPHRINE 4 MG in SODIUM CHLORIDE 0.9% 250 ML IV SCH (08:57)
[2022-04-07] MEDS: ASCORBIC ACID 500 MG TAB PO SCH ×2 (09:40→21:11)
[2022-04-07] MEDS: DEXAMETHASONE SOD PHOSPHATE 10 MG/ML 1 ML VIAL IVP SCH (09:40)
[2022-04-07] MEDS: CHOLECALCIFEROL 125 MCG (5000 IU) TABLET PO SCH (09:40)
[2022-04-07 11:34] LABS: Glucose,Whole Blood 106 mg/dL (70-110)
[2022-04-07] MEDS: PROPRANOLOL 40 MG TAB PO SCH ×2 (12:00→21:11)
[2022-04-07] MEDS: SIPONIMOD 2 MG PO SCH (12:00)
[2022-04-07] MEDS: LISINOPRIL-HCTZ 10-12.5 MG 1 EACH TAB PO SCH ×2 (12:00→21:11)
[2022-04-07] MEDS: OLANZapine 2.5 MG TAB PO SCH (12:56)
[2022-04-07] MEDS: SERTRALINE 100 MG TAB PO SCH (12:56)
[2022-04-07] MEDS: CEFEPIME 2 GM in SODIUM CHLORIDE 0.9% 100 ML IVPB SCH ×2 (13:06→21:11)
--- NOTE | 2022-04-07 14:07 | P.PN ---
Subjective Progress Note Date: 04/07/22 Principal diagnosis: acute COVID-19 infection, suspect possible superimposed bacterial left lower lobe pneumonia A very pleasant 56-year-old male patient came into the hospital because of worsening weakness and shortness of breath and cough and congestion. The patient and his what infected with Covid 19 back into their last week. As such, this is at least 9 days post infection. His has further recovered. The patient himself has received Nav & Nav vaccination for Covid 192 doses and this is his first infection with Covid 19. The patient came in the hospital because of increased cough and congestion. He was having diarrhea last week and his diarrhea has settled. No emesis. His oral intake is quite diminished and the patient was essentially drinking liquids. Urine emergency, the patient tested again positive for Covid 19. The chest x-ray showed a lingular pulmonary infiltrate. The patient received a total of 2 L of IV fluids and the most recent blood pressure is still low with a systolic in the low 80s. As such, I see consultation was requested based on the fact that he hypotension. Note that the patient was not done typically low blood pressure. He was febrile with a T-max of 100.4. The vesicles at 12.7 with a hemoglobin 11.6 and a platelet of 184. Is at 31 with a creatinine of 2.06 and a sodium level is at 137. Cognition profile was normal. His influenza screen was negative. RSV was negative. Troponin was negative. The patient is awake and alert. He is communicating. He has history of MS and is quite debilitated and is having difficulties with mobility and gait. He has neurogenic bladder. Denies having any recurrent infections. No aspiration. No pulmonary source. No recurrent pneumonias.the patient is currently on 2 L of O2 nasal cannula. patient was reevaluated today on 04/07/22, patient is doing great, relatively asymptomatic, in no distress, he was briefly on norepinephrine, presently is off norepinephrine responded well to fluid boluses. Apparently on presentation he was hypotensive, and it wasn't clear whether he was hypotensive because of hypovolemia/dehydration or possibly sepsis related , presently is normotensive, he is on 2 L nasal cannula O2 sats is 94%, and I did not see where the patient had any O2 saturation below 90% even on room air. WBC count 17.1 hemoglobin is 9.8, pro-calcitonin level is extremely elevated at 15.3 highly consistent with superimposed bacterial pneumonia involving the left lower lobe. Hence the patient will remain empirically on antibiotics. Objective - Vital Signs Vital signs: Vital Signs Temp 98.6 F 04/07/22 12:00 Pulse 74 04/07/22 13:00 Resp 14 04/07/22 13:00 BP 99/59 04/07/22 13:00 Pulse Ox 94 L 04/07/22 13:00 FiO2 Intake & Output 04/06/22 04/07/22 04/07/22 18:59 06:59 18:59 Intake Total 130 2893.192 1308.808 Output Total 2100 950 Balance 130 793.192 358.808 Weight 99.9 kg 102.8 kg Intake: IV 130 2660 1070 Cefepime 2 gm In Sodium 100 100 Chloride 0.9% 100 ml @ 25 mls/hr IVPB Q12H [facility] Rx# :[id number] Invasive Line 1 20 Invasive Line 2 20 Invasive Line 3 20 Sodium Chloride 0.9% 1, 130 1560 910 000 ml @ 130 mls/hr IV . Q7H42M [facility] Rx#:[id number] Sodium Chloride 0.9% 1, 1000 000 ml @ 999 mls/hr IV . Q1H1M [facility] Rx#:[id number] Intake, IV Titration 233.192 20.808 Amount Norepinephrine 4 mg In 233.192 20.808 Sodium Chloride 0.9% 250 ml @ 0.03 MCG/KG/MIN 11. 419 mls/hr IV .[id number] [facility] Rx#:[id number] Oral 218 Output: Urine 2100 950 Other: Voiding Method Urinal Indwelling Catheter # Voids 0 1 0 - Exam Physical Exam: Revealed 56-year-old white male in no distress on 2 L nasal cannula head: Atraumatic normocephalic HEENT:[Neck is supple.] [No neck masses.] [No thyromegaly.] [No JVD.] Chest: [ minimal crackles at the left base.] Cardiac Exam: [Normal S1 and S2, no S3 gallop, no murmur.] Abdomen: [Soft, nontender, no megaly, no rebound, no guarding, normal bowel sounds.] Extremities: [No clubbing, no edema, no cyanosis.] Neurological Exam: [No focal neurologic deficit.] no focal deficit psychiatric: Normal mood affect and normal mental status examination. Skin: No rashes. - Labs CBC & Chem 7: 04/07/22 05:59 04/07/22 05:59 Labs: Abnormal Lab Results - Last 24 Hours (Table) 04/06/22 04/06/22 04/06/22 Range/Units 13:08 13:08 13:08 WBC (3.8-10.6) k/uL RBC (4.30-5.90) m/uL Hgb (13.0-17.5) gm/dL Hct (39.0-53.0) % Neutrophils # (Manual) 9.80 H (1.3-7.7) k/uL Lymphocytes # (Manual) 0.63 L (1.0-4.8) k/uL Monocytes # (Manual) 2.00 H (0-1.0) k/uL Metamyelocytes # (Man) 0.13 H (0) k/uL Chloride (98-107) mmol/L Carbon Dioxide (22-30) mmol/L BUN (9-20) mg/dL Creatinine (0.66-1.25) mg/dL Glucose (74-99) mg/dL POC Glucose (mg/dL) (70-110) mg/dL Calcium (8.4-10.2) mg/dL Procalcitonin 15.30 H (0.02-0.09) ng/mL SARS-CoV-2 (PCR) Detected A (Not Detectd) 04/06/22 04/06/22 04/07/22 Range/Units 17:53 21:09 05:59 WBC 17.1 H (3.8-10.6) k/uL RBC 2.96 L (4.30-5.90) m/uL Hgb 9.8 L D (13.0-17.5) gm/dL Hct 29.5 L (39.0-53.0) % Neutrophils # (Manual) 14.70 H (1.3-7.7) k/uL Lymphocytes # (Manual) (1.0-4.8) k/uL Monocytes # (Manual) 1.03 H (0-1.0) k/uL Metamyelocytes # (Man) 0.51 H (0) k/uL Chloride (98-107) mmol/L Carbon Dioxide (22-30) mmol/L BUN (9-20) mg/dL Creatinine (0.66-1.25) mg/dL Glucose (74-99) mg/dL POC Glucose (mg/dL) 135 H 142 H (70-110) mg/dL Calcium (8.4-10.2) mg/dL Procalcitonin (0.02-0.09) ng/mL SARS-CoV-2 (PCR) (Not Detectd) 04/07/22 Range/Units 05:59 WBC (3.8-10.6) k/uL RBC (4.30-5.90) m/uL Hgb (13.0-17.5) gm/dL Hct (39.0-53.0) % Neutrophils # (Manual) (1.3-7.7) k/uL Lymphocytes # (Manual) (1.0-4.8) k/uL Monocytes # (Manual) (0-1.0) k/uL Metamyelocytes # (Man) (0) k/uL Chloride 116 H (98-107) mmol/L Carbon Dioxide 21 L (22-30) mmol/L BUN 30 H (9-20) mg/dL Creatinine 1.29 H (0.66-1.25) mg/dL Glucose 105 H (74-99) mg/dL POC Glucose (mg/dL) (70-110) mg/dL Calcium 8.1 L (8.4-10.2) mg/dL Procalcitonin (0.02-0.09) ng/mL SARS-CoV-2 (PCR) (Not Detectd) Microbiology - Last 24 Hours (Table) 04/07/22 05:20 Sputum Culture - Preliminary Sputum Assessment and Plan Assessment: Impression: Hyportension, could be secondary to dehydration or possible sepsis with left lo wer lobe pneumonia superimposed on COVID-19 infection. Acute COVID-19 infection acute kidney injury suspect bacterial superinfection with lingular and left lower lobe infiltrate history of MS history of seizure disorder type 2 diabetes history of nephrolithiasis obstructive sleep apnea not compliant with CPAP recommendation: Continue to monitor in the ICU for the next 24 hours keep norepinephrine off for now continue IV fluid at 130 mL per hour continue COVID-19 cocktail continue Decadron continue sliding scale insulin coverage continue antibiotics empirically patient is on a combination of cefepime and Levaquin will continue to follow Time with Patient: Less than 30
[2022-04-07 15:15] LABS: Glucose,Whole Blood 169 mg/dL (70-110)
[2022-04-07 16:13] LABS: Glucose,Whole Blood 147 mg/dL (70-110)
[2022-04-07] MEDS: FERROUS SULFATE 325 MG TAB PO SCH (17:07)
[2022-04-07 21:16] LABS: Glucose,Whole Blood 63 mg/dL (70-110)
[2022-04-07 21:36] LABS: Glucose,Whole Blood 67 mg/dL (70-110)
[2022-04-07 21:56] LABS: Glucose,Whole Blood 89 mg/dL (70-110)
--- NOTE | 2022-04-07 23:13 | HP ---
HISTORY AND PHYSICAL HISTORY OF PRESENT ILLNESS: This is a 56-year-old white male with worsening shortness of breath, cough, and congestion, COVID-19 last week, 7 days post infection. He had Nav and Nav vaccine x2. He has had diarrhea recently. He has been more altered and obtunded. Chest x-ray showed lingular pulmonary infiltrate. He got 2 L IV fluids. He remains hypotensive. He is admitted to the ICU. Pulmonary is consulted. T-max 100.4, white count is 12.7, hemoglobin is 11.6, platelets 184, creatinine is 2.06, BUN is 31, sodium 137. Influenza screen is negative, RSV negative, troponins negative. He is communicating. He has a history of MS and obtundation, bipolar, sleep apnea, is on 2 L oxygen at this time. REVIEW OF SYSTEMS: GENERAL: A 14-point review of systems, severe fatigue and weakness, which is more than normal. He has bilateral blurred vision, congestion, cough, upper respiratory injection. CARDIOVASCULAR: Negative. PULMONARY: Wheezes, cough, congestion, shortness of breath. GI: Negative. : Urine frequency. MUSCULOSKELETAL: Negative. INTEGUMENT: Negative. NEUROLOGIC: Balance difficulties, gait dysfunction, disturbances, seizures. PSYCH: As mentioned above, bipolar, mood swings. ENDOCRINE: He has diabetes. His BMI is over 40. ALLERGY/IMMUNOLOGY: He gets rashes occasionally. PAST MEDICAL HISTORY: Obstructive sleep apnea, diabetes mellitus, bipolar disorder, GERD, multiple sclerosis, seizure disorder, sleep apnea. He wears CPAP at home. PAST SURGICAL HISTORY: He has had VNS unit in his left chest, spinal stimulator and lumbar fusion, C-spine fusion, left knee arthroscopy, bilateral cataracts removed. He has history of anxiety, depression. FAMILY HISTORY: Mother COPD, hypertension. Father, coronary artery disease, myocardial infarction. MEDICATIONS: See list. ALLERGIES: To penicillin, Compazine, Wellbutrin, gabapentin, amantadine. PHYSICAL EXAMINATION: VITAL SIGNS: T-max 100.4, pulse 85-100, respiratory rate 18-22, blood pressure 70s to 80s systolic, weight is 104 pounds. GENERAL: He is have coughing episodes on 2 L oxygen as he has mildly labored breathing. ENT: Some cough, congestion, upper respiratory congestion. LUNGS: Diminished. Scattered rhonchi and wheeze. CARDIAC: S1, S2. No murmurs, rubs, or gallops. ABDOMEN: Soft, nontender. EXTREMITIES: No skin rash. 2+ edema. NEUROLOGIC: Cranial nerves are intact. ASSESSMENT AND PLAN: Acute hypoxemic respiratory failure secondary to COVID-19, severe dehydration, sleep apnea, respiratory failure, prerenal azotemia, history of renal stones, diabetes mellitus, seizure disorder, multiple sclerosis, suspect bacterial superinfection with pneumonia infiltrate, acute kidney injury, acute COVID-19 infection, ICU, fluid replacement, urine and blood cultures. Cefepime, Levaquin, treatment with Decadron for COVID-19, vitamin C and D, zinc, sliding scale cover, CPAP at night, oxygen during the day. Prognosis guarded. MMODL / IJN: [id number] /
[2022-04-08] MEDS: SODIUM CHLORIDE 0.9% 1,000 ML IV SCH ×3 (01:00→13:59)
[2022-04-08 03:20] LABS: Glucose,Whole Blood 76 mg/dL (70-110)
[2022-04-08 06:31] LABS: Basophils % (A) 0 %; Eosinophils % (A) 0 %; HCT 26.7 % (39.0-53.0); HGB 8.7 gm/dL (13.0-17.5); Lymphocytes # (A) 0.7 k/uL (1.0-4.8); Lymphocytes % (A) 7 %; MCH 33.6 pg (25.0-35.0); MCHC 32.5 g/dL (31.0-37.0); MCV 103.4 fL (80.0-100.0); Macrocytosis Slight; Mean Platelet Volume 7.9; Monocytes # (A) 0.6 k/uL (0-1.0); Monocytes % (A) 6 %; Neutrophils % (A) 86 %; Platelet Count 165 k/uL (150-450); RBC 2.59 m/uL (4.30-5.90); RDW 12.9 % (11.5-15.5); WBC 10.5 k/uL (3.8-10.6)
[2022-04-08 06:38] LABS: Glucose,Whole Blood 73 mg/dL (70-110)
[2022-04-08 06:48] LABS: African American GFR (CKD) >90 (>60 ml/min/1.73 sqM); Anion Gap 5 mmol/L; Blood Urea Nitrogen 27 mg/dL (9-20); Calcium 7.5 mg/dL (8.4-10.2); Carbon Dioxide 19 mmol/L (22-30); Chloride 119 mmol/L (98-107); Glucose 64 mg/dL (74-99); Non-African American GFR(CKD) >90 (>60 ml/min/1.73 sqM); Potassium 3.9 mmol/L (3.5-5.1); Sodium 143 mmol/L (137-145)
[2022-04-08] MEDS: METOCLOPRAMIDE 5 MG TAB PO SCH ×3 (06:50→16:44)
[2022-04-08] MEDS: OLANZapine 5 MG TAB PO SCH ×2 (06:51→16:44)
[2022-04-08] MEDS: DIVALPROEX ER 500 MG TAB.ER.24H PO SCH ×4 (06:51→21:02)
[2022-04-08] MEDS: CEFEPIME 2 GM in SODIUM CHLORIDE 0.9% 100 ML IVPB SCH ×3 (06:51→21:02)
[2022-04-08] MEDS: clonazePAM 1 MG TAB PO SCH ×2 (06:51→16:41)
[2022-04-08] MEDS: metFORMIN 500 MG TAB PO SCH ×2 (06:51→16:41)
[2022-04-08] MEDS: FUROSEMIDE 20 MG TAB PO SCH (06:51)
[2022-04-08] MEDS: PANTOPRAZOLE 40 MG TABLET PO SCH ×2 (06:51→21:02)
[2022-04-08] MEDS: LACOSAMIDE 50 MG TABLET PO SCH ×2 (06:51→16:41)
[2022-04-08] MEDS: INSULIN ASPART (NovoLOG) 100 UNIT/ML VIAL SQ SCH ×4 (06:52→20:46)
[2022-04-08] MEDS: DEXAMETHASONE SOD PHOSPHATE 10 MG/ML 1 ML VIAL IVP SCH (08:30)
[2022-04-08] MEDS: ASCORBIC ACID 500 MG TAB PO SCH ×2 (08:31→21:02)
[2022-04-08] MEDS: CHOLECALCIFEROL 125 MCG (5000 IU) TABLET PO SCH (08:32)
--- NOTE | 2022-04-08 11:28 | P.PN ---
Subjective Progress Note Date: 04/08/22 Principal diagnosis: acute COVID-19 infection, suspect possible superimposed bacterial left lower lobe pneumonia A very pleasant 56-year-old male patient came into the hospital because of worsening weakness and shortness of breath and cough and congestion. The patient and his what infected with Covid 19 back into their last week. As such, this is at least 9 days post infection. His has further recovered. The patient himself has received Nav & Nav vaccination for Covid 192 doses and this is his first infection with Covid 19. The patient came in the hospital because of increased cough and congestion. He was having diarrhea last week and his diarrhea has settled. No emesis. His oral intake is quite diminished and the patient was essentially drinking liquids. Urine emergency, the patient tested again positive for Covid 19. The chest x-ray showed a lingular pulmonary infiltrate. The patient received a total of 2 L of IV fluids and the most recent blood pressure is still low with a systolic in the low 80s. As such, I see consultation was requested based on the fact that he hypotension. Note that the patient was not done typically low blood pressure. He was febrile with a T-max of 100.4. The vesicles at 12.7 with a hemoglobin 11.6 and a platelet of 184. Is at 31 with a creatinine of 2.06 and a sodium level is at 137. Cognition profile was normal. His influenza screen was negative. RSV was negative. Troponin was negative. The patient is awake and alert. He is communicating. He has history of MS and is quite debilitated and is having difficulties with mobility and gait. He has neurogenic bladder. Denies having any recurrent infections. No aspiration. No pulmonary source. No recurrent pneumonias.the patient is currently on 2 L of O2 nasal cannula. patient was reevaluated today on 04/07/22, patient is doing great, relatively asymptomatic, in no distress, he was briefly on norepinephrine, presently is off norepinephrine responded well to fluid boluses. Apparently on presentation he was hypotensive, and it wasn't clear whether he was hypotensive because of hypovolemia/dehydration or possibly sepsis related , presently is normotensive, he is on 2 L nasal cannula O2 sats is 94%, and I did not see where the patient had any O2 saturation below 90% even on room air. WBC count 17.1 hemoglobin is 9.8, pro-calcitonin level is extremely elevated at 15.3 highly consistent with superimposed bacterial pneumonia involving the left lower lobe. Hence the patient will remain empirically on antibiotics. Reevaluated today on 04/08/22, patient remains in the ICU, he is comfortable, he actually on room air, and the fluid is at 1 50 mL per hour remains on cefepime his last chest x-ray showed significant infiltrate anddisease involving the left lower lobe. Patient is Covid 19 positive, however I believe were dealing with superimposed pneumonia/bacterial pneumonia involving the left lower lobe considering his elevated Prograf level. CBC today is basically unremarkable electrolytes are normal renal profile is normal. Objective - Vital Signs Vital signs: Vital Signs Temp 98.3 F 04/08/22 08:00 Pulse 79 04/08/22 09:00 Resp 19 04/08/22 09:00 BP 130/61 04/08/22 09:00 Pulse Ox 94 L 04/08/22 09:00 FiO2 Intake & Output 04/07/22 04/08/22 04/08/22 18:59 06:59 18:59 Intake Total 2248.808 1790 349.758 Output Total 1395 1480 1050 Balance 853.808 310 -700.242 Weight 100.8 kg Intake: IV 1750 1790 260 Cefepime 2 gm In Sodium 100 100 Chloride 0.9% 100 ml @ 25 mls/hr IVPB Q12H [facility] Rx# :[id number] Invasive Line 1 30 Invasive Line 2 30 Invasive Line 3 30 Sodium Chloride 0.9% 1, 1560 1690 260 000 ml @ 130 mls/hr IV . Q7H42M [facility] Rx#:[id number] Intake, IV Titration 20.808 89.758 Amount Norepinephrine 4 mg In 20.808 89.758 Sodium Chloride 0.9% 250 ml @ 0.03 MCG/KG/MIN 11. 419 mls/hr IV .[id number] [facility] Rx#:[id number] Oral 478 Output: Urine 1395 1480 1050 Other: Voiding Method Indwelling Catheter Indwelling Catheter Indwelling Catheter # Voids 0 # Bowel Movements 1 - Exam Physical Exam: Revealed 56-year-old white male in no distress on room air. head: Atraumatic normocephalic HEENT:[Neck is supple.] [No neck masses.] [No thyromegaly.] [No JVD.] Chest: [ minimal crackles at the left base.] Cardiac Exam: [Normal S1 and S2, no S3 gallop, no murmur.] Abdomen: [Soft, nontender, no megaly, no rebound, no guarding, normal bowel sounds.] Extremities: [No clubbing, no edema, no cyanosis.] Neurological Exam: [No focal neurologic deficit.] no focal deficit psychiatric: Normal mood affect and normal mental status examination. Skin: No rashes. - Labs CBC & Chem 7: 04/08/22 05:40 04/08/22 05:40 Labs: Abnormal Lab Results - Last 24 Hours (Table) 04/07/22 04/07/22 04/07/22 Range/Units 15:13 16:12 21:14 RBC (4.30-5.90) m/uL Hgb (13.0-17.5) gm/dL Hct (39.0-53.0) % MCV (80.0-100.0) fL Neutrophils # (1.3-7.7) k/uL Lymphocytes # (1.0-4.8) k/uL Chloride (98-107) mmol/L Carbon Dioxide (22-30) mmol/L BUN (9-20) mg/dL Glucose (74-99) mg/dL POC Glucose (mg/dL) 169 H 147 H 63 L (70-110) mg/dL Calcium (8.4-10.2) mg/dL 04/07/22 04/08/22 04/08/22 Range/Units 21:34 05:40 05:40 RBC 2.59 L (4.30-5.90) m/uL Hgb 8.7 L (13.0-17.5) gm/dL Hct 26.7 L (39.0-53.0) % MCV 103.4 H (80.0-100.0) fL Neutrophils # 9.0 H (1.3-7.7) k/uL Lymphocytes # 0.7 L (1.0-4.8) k/uL Chloride 119 H (98-107) mmol/L Carbon Dioxide 19 L (22-30) mmol/L BUN 27 H (9-20) mg/dL Glucose 64 L (74-99) mg/dL POC Glucose (mg/dL) 67 L (70-110) mg/dL Calcium 7.5 L (8.4-10.2) mg/dL Microbiology - Last 24 Hours (Table) 04/07/22 05:20 Gram Stain - Preliminary Sputum Sputum Culture - Preliminary Assessment and Plan Assessment: Impression: Hyportension, could be secondary to dehydration or possible sepsis with left lower lobe pneumonia superimposed on COVID-19 infection. Acute COVID-19 infection acute kidney injury suspect bacterial superinfection with lingular and left lower lobe infiltrate history of MS history of seizure disorder type 2 diabetes history of nephrolithiasis obstructive sleep apnea not compliant with CPAP recommendation: Transfer out of the ICU to a regular medical floor. Cut down her IV fluid to 75 mL/h continue COVID-19 cocktail continue Decadron continue sliding scale insulin coverage continue antibiotics empirically patient is on a combination of cefepime will continue to follow Time with Patient: Less than 30
[2022-04-08 11:48] LABS: Glucose,Whole Blood 128 mg/dL (70-110)
[2022-04-08] MEDS: PROPRANOLOL 40 MG TAB PO SCH ×2 (11:50→21:02)
[2022-04-08] MEDS: OLANZapine 2.5 MG TAB PO SCH (11:50)
[2022-04-08] MEDS: SERTRALINE 100 MG TAB PO SCH (11:51)
[2022-04-08] MEDS: LISINOPRIL-HCTZ 10-12.5 MG 1 EACH TAB PO SCH ×2 (11:51→21:02)
[2022-04-08] MEDS: FERROUS SULFATE 325 MG TAB PO SCH (16:41)
[2022-04-08 16:43] LABS: Glucose,Whole Blood 140 mg/dL (70-110)
[2022-04-08] MEDS: SIPONIMOD 2 MG PO SCH (16:45)
--- NOTE | 2022-04-08 19:02 | P.PN ---
Subjective This is a pleasant 56 years old male with past medical history of coronary artery disease, diabetes, GERD, hyperlipidemia, hypertension, seizure disorder, sleep apnea, multiple sclerosis, chronic back pain status post spinal stimulator Patient was admitted with respiratory infection felt to secondary to call with infection but chest x-ray showed infiltrate mainly in the left lower lobe, and review the chest x-ray by myself. Also patient with some evidence of mild hypoxia. Currently he is on room air saturating low 90s but he is quite the 20-26. His been followed and monitored closely and see with pulmonary/critical care team on the case. Currently covered with cefepime, as well as multiple vitamins vitamin C, D and zinc. Also his and extremities in normal saline with 30 mL/h. Procalcitonin is elevated 15.7 05 IS DETECTED Hemoglobin came down to 11.6 and to 8.7. Lipase E 10.5. Creatinine 1.2 came back to normal 0.8 Objective - Vital Signs Vital signs: Vital Signs Temp 98.3 F 04/08/22 08:00 Pulse 79 04/08/22 09:00 Resp 19 04/08/22 09:00 BP 130/61 04/08/22 09:00 Pulse Ox 94 L 04/08/22 09:00 FiO2 Intake & Output 04/07/22 04/08/22 04/08/22 18:59 06:59 18:59 Intake Total 2248.808 1790 349.758 Output Total 1395 1480 1050 Balance 853.808 310 -700.242 Weight 100.8 kg Intake: IV 1750 1790 260 Cefepime 2 gm In Sodium 100 100 Chloride 0.9% 100 ml @ 25 mls/hr IVPB Q12H [facility] Rx# :[id number] Invasive Line 1 30 Invasive Line 2 30 Invasive Line 3 30 Sodium Chloride 0.9% 1, 1560 1690 260 000 ml @ 130 mls/hr IV . Q7H42M [facility] Rx#:[id number] Intake, IV Titration 20.808 89.758 Amount Norepinephrine 4 mg In 20.808 89.758 Sodium Chloride 0.9% 250 ml @ 0.03 MCG/KG/MIN 11. 419 mls/hr IV .[id number] [facility] Rx#:[id number] Oral 478 Output: Urine 1395 1480 1050 Other: Voiding Method Indwelling Catheter Indwelling Catheter Indwelling Catheter # Voids 0 # Bowel Movements 1 - Exam GENERAL: The patient is alert and oriented x3, not in any acute distress. Well developed, well nourished. HEENT: Pupils are round and equally reacting to light. EOMI. No scleral icterus. No conjunctival pallor. Normocephalic, atraumatic. No pharyngeal erythema. No thyromegaly. CARDIOVASCULAR: S1 and S2 present. No murmurs, rubs, or gallops. -PULMONARY: Chest is clear to auscultation, no wheezing or crackles. Tachypneic ABDOMEN: Soft, nontender, nondistended, normoactive bowel sounds. No palpable organomegaly. MUSCULOSKELETAL: No joint swelling or deformity. EXTREMITIES: No cyanosis, clubbing, or pedal edema. NEUROLOGICAL: Gross neurological examination did not reveal any focal deficits. SKIN: No rashes. no petechiae. - Labs CBC & Chem 7: 04/08/22 05:40 04/08/22 05:40 Labs: Abnormal Lab Results - Last 24 Hours (Table) 04/07/22 04/07/22 04/07/22 Range/Units 15:13 16:12 21:14 RBC (4.30-5.90) m/uL Hgb (13.0-17.5) gm/dL Hct (39.0-53.0) % MCV (80.0-100.0) fL Neutrophils # (1.3-7.7) k/uL Lymphocytes # (1.0-4.8) k/uL Chloride (98-107) mmol/L Carbon Dioxide (22-30) mmol/L BUN (9-20) mg/dL Glucose (74-99) mg/dL POC Glucose (mg/dL) 169 H 147 H 63 L (70-110) mg/dL Calcium (8.4-10.2) mg/dL 04/07/22 04/08/22 04/08/22 Range/Units 21:34 05:40 05:40 RBC 2.59 L (4.30-5.90) m/uL Hgb 8.7 L (13.0-17.5) gm/dL Hct 26.7 L (39.0-53.0) % MCV 103.4 H (80.0-100.0) fL Neutrophils # 9.0 H (1.3-7.7) k/uL Lymphocytes # 0.7 L (1.0-4.8) k/uL Chloride 119 H (98-107) mmol/L Carbon Dioxide 19 L (22-30) mmol/L BUN 27 H (9-20) mg/dL Glucose 64 L (74-99) mg/dL POC Glucose (mg/dL) 67 L (70-110) mg/dL Calcium 7.5 L (8.4-10.2) mg/dL 04/08/22 Range/Units 11:46 RBC (4.30-5.90) m/uL Hgb (13.0-17.5) gm/dL Hct (39.0-53.0) % MCV (80.0-100.0) fL Neutrophils # (1.3-7.7) k/uL Lymphocytes # (1.0-4.8) k/uL Chloride (98-107) mmol/L Carbon Dioxide (22-30) mmol/L BUN (9-20) mg/dL Glucose (74-99) mg/dL POC Glucose (mg/dL) 128 H (70-110) mg/dL Calcium (8.4-10.2) mg/dL Microbiology - Last 24 Hours (Table) 04/07/22 05:20 Gram Stain - Preliminary Sputum Sputum Culture - Preliminary Assessment and Plan Assessment: Left lower lobe pneumonia suspicion for gram-negative infection Covid infection Acute hypoxic respiratory failure Diabetes mellitus Hypertension Hyperlipidemia History of seizure disorder History of multiple sclerosis Chronic back pain status post spinal stimulator History of GERD Plan: Continue with cefepime Follow-up sputum culture Continue with oxygen as needed Continue with dexamethasone Continue with vitamin C, D and zinc Continue gentle hydration Pulmonary team consult Due anemia workup Labs and medication were reviewed.. Continue same treatment. Continue with symptomatic treatment. Resume home medication. Monitor lytes and vitals. DVT and GI prophylaxis. Further recommendations as per clinical course of the patient DVT prophylaxis: no Subcutaneous heparin in view of anemia GI Prophylaxis: Pepcid PT/OT: Pending Prognosis is guarded
[2022-04-08 20:29] LABS: Glucose,Whole Blood 115 mg/dL (70-110)
[2022-04-08] MEDS ORDERED: HEPARIN SODIUM,PORCINE/PF 5,000 UNIT/0.5 ML SYRINGE SQ SCH (21:00)
[2022-04-09] MEDS: SODIUM CHLORIDE 0.9% 1,000 ML IV SCH ×3 (05:51→17:14)
[2022-04-09 06:00] LABS: Glucose,Whole Blood 98 mg/dL (70-110)
[2022-04-09] MEDS: OLANZapine 5 MG TAB PO SCH ×2 (06:23→17:14)
[2022-04-09] MEDS: CEFEPIME 2 GM in SODIUM CHLORIDE 0.9% 100 ML IVPB SCH ×3 (06:23→21:28)
[2022-04-09] MEDS: metFORMIN 500 MG TAB PO SCH ×2 (06:24→17:13)
[2022-04-09] MEDS: PANTOPRAZOLE 40 MG TABLET PO SCH ×2 (06:24→21:28)
[2022-04-09] MEDS: FUROSEMIDE 20 MG TAB PO SCH (06:24)
[2022-04-09] MEDS: clonazePAM 1 MG TAB PO SCH ×2 (06:24→17:13)
[2022-04-09] MEDS: LACOSAMIDE 50 MG TABLET PO SCH ×2 (06:24→17:13)
[2022-04-09] MEDS: DIVALPROEX ER 500 MG TAB.ER.24H PO SCH ×4 (06:24→21:28)
[2022-04-09] MEDS: METOCLOPRAMIDE 5 MG TAB PO SCH ×3 (06:25→17:13)
[2022-04-09] MEDS: INSULIN ASPART (NovoLOG) 100 UNIT/ML VIAL SQ SCH ×4 (06:25→21:17)
[2022-04-09 06:29] LABS: Basophils % (A) 0 %; Eosinophils % (A) 0 %; HCT 29.3 % (39.0-53.0); HGB 9.6 gm/dL (13.0-17.5); Lymphocytes # (A) 0.8 k/uL (1.0-4.8); Lymphocytes % (A) 8 %; MCH 33.2 pg (25.0-35.0); MCHC 32.8 g/dL (31.0-37.0); MCV 101.1 fL (80.0-100.0); Mean Platelet Volume 7.8; Monocytes # (A) 0.5 k/uL (0-1.0); Monocytes % (A) 5 %; Neutrophils # (A) 8.8 k/uL (1.3-7.7); Neutrophils % (A) 87 %; Platelet Count 186 k/uL (150-450); RDW 12.9 % (11.5-15.5); WBC 10.1 k/uL (3.8-10.6)
[2022-04-09 06:40] LABS: African American GFR (CKD) >90 (>60 ml/min/1.73 sqM); Anion Gap 8 mmol/L; Blood Urea Nitrogen 22 mg/dL (9-20); C Reactive Protein 6.2 mg/dL (<1.0); Carbon Dioxide 20 mmol/L (22-30); Chloride 116 mmol/L (98-107); Glucose 75 mg/dL (74-99); LDH 361 U/L (313-618); Non-African American GFR(CKD) >90 (>60 ml/min/1.73 sqM); Potassium 3.6 mmol/L (3.5-5.1); Sodium 144 mmol/L (137-145)
[2022-04-09] MEDS: CHOLECALCIFEROL 125 MCG (5000 IU) TABLET PO SCH (08:17)
[2022-04-09] MEDS: DEXAMETHASONE SOD PHOSPHATE 10 MG/ML 1 ML VIAL IVP SCH (08:17)
[2022-04-09] MEDS: ASCORBIC ACID 500 MG TAB PO SCH ×2 (08:17→21:28)
--- NOTE | 2022-04-09 11:09 | P.PN ---
Subjective Progress Note Date: 04/09/22 Principal diagnosis: acute COVID-19 infection, suspect possible superimposed bacterial left lower lobe pneumonia A very pleasant 56-year-old male patient came into the hospital because of worsening weakness and shortness of breath and cough and congestion. The patient and his what infected with Covid 19 back into their last week. As such, this is at least 9 days post infection. His has further recovered. The patient himself has received Nav & Nav vaccination for Covid 192 doses and this is his first infection with Covid 19. The patient came in the hospital because of increased cough and congestion. He was having diarrhea last week and his diarrhea has settled. No emesis. His oral intake is quite diminished and the patient was essentially drinking liquids. Urine emergency, the patient tested again positive for Covid 19. The chest x-ray showed a lingular pulmonary infiltrate. The patient received a total of 2 L of IV fluids and the most recent blood pressure is still low with a systolic in the low 80s. As such, I see consultation was requested based on the fact that he hypotension. Note that the patient was not done typically low blood pressure. He was febrile with a T-max of 100.4. The vesicles at 12.7 with a hemoglobin 11.6 and a platelet of 184. Is at 31 with a creatinine of 2.06 and a sodium level is at 137. Cognition profile was normal. His influenza screen was negative. RSV was negative. Troponin was negative. The patient is awake and alert. He is communicating. He has history of MS and is quite debilitated and is having difficulties with mobility and gait. He has neurogenic bladder. Denies having any recurrent infections. No aspiration. No pulmonary source. No recurrent pneumonias.the patient is currently on 2 L of O2 nasal cannula. patient was reevaluated today on 04/07/22, patient is doing great, relatively asymptomatic, in no distress, he was briefly on norepinephrine, presently is off norepinephrine responded well to fluid boluses. Apparently on presentation he was hypotensive, and it wasn't clear whether he was hypotensive because of hypovolemia/dehydration or possibly sepsis related , presently is normotensive, he is on 2 L nasal cannula O2 sats is 94%, and I did not see where the patient had any O2 saturation below 90% even on room air. WBC count 17.1 hemoglobin is 9.8, pro-calcitonin level is extremely elevated at 15.3 highly consistent with superimposed bacterial pneumonia involving the left lower lobe. Hence the patient will remain empirically on antibiotics. Reevaluated today on 04/08/22, patient remains in the ICU, he is comfortable, he actually on room air, and the fluid is at 1 50 mL per hour remains on cefepime his last chest x-ray showed significant infiltrate anddisease involving the left lower lobe. Patient is Covid 19 positive, however I believe were dealing with superimposed pneumonia/bacterial pneumonia involving the left lower lobe considering his elevated Prograf level. CBC today is basically unremarkable electrolytes are normal renal profile is normal. Patient was reevaluated today on 04/09/22, patient remains in the ICU as an overflow, he is on room air, in no distress, he has occasional cough. Patient is being treated for acute COVID-19 infection and left lower lobe superimposed most likely bacterial pneumonia. Clinically the patient is doing great, and I plan to transfer the patient on the ICU to a regular medical floor, I plan to repeat his chest x-ray in a.m., and if not any worse in the left lower lobe, may consider discharge the patient home in the next 24 hours. Objective - Vital Signs Vital signs: Vital Signs Temp 97.6 F 04/09/22 08:00 Pulse 56 L 04/09/22 08:00 Resp 19 04/09/22 08:00 BP 138/99 04/09/22 08:00 Pulse Ox 94 L 04/09/22 08:00 FiO2 Intake & Output 04/08/22 04/09/22 04/09/22 18:59 06:59 18:59 Intake Total 0362.661 7777 150 Output Total 3060 1325 1225 Balance -1670.242 105 -1075 Intake: IV 1300 1430 150 Sodium Chloride 0.9% 1, 1300 1430 150 000 ml @ 75 mls/hr IV . [id number] [facility] Rx#:[id number] Intake, IV Titration 89.758 Amount Norepinephrine 4 mg In 89.758 Sodium Chloride 0.9% 250 ml @ 0.03 MCG/KG/MIN 11. 419 mls/hr IV .[id number] [facility] Rx#:[id number] Output: Urine 3060 1325 1225 Other: Voiding Method Indwelling Catheter Indwelling Catheter # Voids 1 - Exam Physical Exam: Revealed 56-year-old white male in no distress on room air. head: Atraumatic normocephalic HEENT:[Neck is supple.] [No neck masses.] [No thyromegaly.] [No JVD.] Chest: [ minimal crackles at the left base.] Cardiac Exam: [Normal S1 and S2, no S3 gallop, no murmur.] Abdomen: [Soft, nontender, no megaly, no rebound, no guarding, normal bowel sounds.] Extremities: [No clubbing, no edema, no cyanosis.] Neurological Exam: [No focal neurologic deficit.] no focal deficit psychiatric: Normal mood affect and normal mental status examination. Skin: No rashes. - Labs CBC & Chem 7: 04/09/22 05:37 04/09/22 05:37 Labs: Abnormal Lab Results - Last 24 Hours (Table) 04/08/22 04/08/22 04/08/22 Range/Units 11:46 16:42 20:27 RBC (4.30-5.90) m/uL Hgb (13.0-17.5) gm/dL Hct (39.0-53.0) % MCV (80.0-100.0) fL Neutrophils # (1.3-7.7) k/uL Lymphocytes # (1.0-4.8) k/uL Chloride (98-107) mmol/L Carbon Dioxide (22-30) mmol/L BUN (9-20) mg/dL POC Glucose (mg/dL) 128 H 140 H 115 H (70-110) mg/dL Calcium (8.4-10.2) mg/dL C-Reactive Protein (<1.0) mg/dL 04/09/22 04/09/22 Range/Units 05:37 05:37 RBC 2.90 L (4.30-5.90) m/uL Hgb 9.6 L (13.0-17.5) gm/dL Hct 29.3 L (39.0-53.0) % MCV 101.1 H (80.0-100.0) fL Neutrophils # 8.8 H (1.3-7.7) k/uL Lymphocytes # 0.8 L (1.0-4.8) k/uL Chloride 116 H (98-107) mmol/L Carbon Dioxide 20 L (22-30) mmol/L BUN 22 H (9-20) mg/dL POC Glucose (mg/dL) (70-110) mg/dL Calcium 8.0 L (8.4-10.2) mg/dL C-Reactive Protein 6.2 H (<1.0) mg/dL Microbiology - Last 24 Hours (Table) 04/07/22 05:20 Gram Stain - Final Sputum Sputum Culture - Final Assessment and Plan Assessment: Impression: Hyportension, could be secondary to dehydration or possible sepsis with left lower lobe pneumonia superimposed on COVID-19 infection. Acute COVID-19 infection acute kidney injury suspect bacterial superinfection with lingular and left lower lobe infiltrate history of MS history of seizure disorder type 2 diabetes history of nephrolithiasis obstructive sleep apnea not compliant with CPAP recommendation: Transfer to a regular medical floor. continue COVID-19 cocktail continue Decadron continue sliding scale insulin coverage continue antibiotics empirically repeat chest x-ray in a.m., consider discharge planning in the next 24 hours will continue to follow Time with Patient: Less than 30
[2022-04-09 11:24] LABS: Glucose,Whole Blood 131 mg/dL (70-110)
[2022-04-09] MEDS: LISINOPRIL-HCTZ 10-12.5 MG 1 EACH TAB PO SCH ×2 (12:13→21:28)
[2022-04-09] MEDS: SERTRALINE 100 MG TAB PO SCH (12:13)
[2022-04-09] MEDS: PROPRANOLOL 40 MG TAB PO SCH ×2 (12:13→21:28)
[2022-04-09] MEDS: SIPONIMOD 2 MG PO SCH (12:15)
[2022-04-09] MEDS: OLANZapine 2.5 MG TAB PO SCH (14:05)
[2022-04-09] MEDS: FERROUS SULFATE 325 MG TAB PO SCH (17:13)
--- NOTE | 2022-04-09 19:41 | P.PN ---
Subjective This is a pleasant 56 years old male with past medical history of coronary artery disease, diabetes, GERD, hyperlipidemia, hypertension, seizure disorder, sleep apnea, multiple sclerosis, chronic back pain status post spinal stimulator Patient was admitted with respiratory infection felt to secondary to call with infection but chest x-ray showed infiltrate mainly in the left lower lobe, and review the chest x-ray by myself. Also patient with some evidence of mild hypoxia. Currently he is on room air saturating low 90s but he is quite the 20-26. His been followed and monitored closely and see with pulmonary/critical care team on the case. Currently covered with cefepime, as well as multiple vitamins vitamin C, D and zinc. Also his and extremities in normal saline with 30 mL/h. Procalcitonin is elevated 15.7 05 IS DETECTED Hemoglobin came down to 11.6 and to 8.7. Lipase E 10.5. Creatinine 1.2 came back to normal 0.8 04/09/2022 Patient admitted mostly secondary to left lower lobe bacterial infiltrate and pneumonia covid infection without significant covid pneumonia, as well as LDH is normal and CRP is mildly elevated. is saturating 95% on room air WBC normal today 10.1, hemoglobin improved 9.6. No more fever. Patient remains on cefepime, dexamethasone Patient to be transferred to the general medical floor Objective - Vital Signs Vital signs: Vital Signs Temp 97.6 F 04/09/22 08:00 Pulse 56 L 04/09/22 08:00 Resp 19 04/09/22 08:00 BP 138/99 04/09/22 08:00 Pulse Ox 94 L 04/09/22 08:00 FiO2 Intake & Output 04/08/22 04/09/22 04/09/22 18:59 06:59 18:59 Intake Total 4257.984 7447 150 Output Total 3060 1325 1225 Balance -1670.242 105 -1075 Intake: IV 1300 1430 150 Sodium Chloride 0.9% 1, 1300 1430 150 000 ml @ 75 mls/hr IV . [id number] [facility] Rx#:[id number] Intake, IV Titration 89.758 Amount Norepinephrine 4 mg In 89.758 Sodium Chloride 0.9% 250 ml @ 0.03 MCG/KG/MIN 11. 419 mls/hr IV .[id number] [facility] Rx#:[id number] Output: Urine 3060 1325 1225 Other: Voiding Method Indwelling Catheter Indwelling Catheter # Voids 1 - Exam GENERAL: The patient is alert and oriented x3, not in any acute distress. Well developed, well nourished. HEENT: Pupils are round and equally reacting to light. EOMI. No scleral icterus. No conjunctival pallor. Normocephalic, atraumatic. No pharyngeal erythema. No thyromegaly. CARDIOVASCULAR: S1 and S2 present. No murmurs, rubs, or gallops. -PULMONARY: Chest is clear to auscultation, no wheezing or crackles. Tachypneic ABDOMEN: Soft, nontender, nondistended, normoactive bowel sounds. No palpable organomegaly. MUSCULOSKELETAL: No joint swelling or deformity. EXTREMITIES: No cyanosis, clubbing, or pedal edema. NEUROLOGICAL: Gross neurological examination did not reveal any focal deficits. SKIN: No rashes. no petechiae. - Labs CBC & Chem 7: 04/09/22 05:37 04/09/22 05:37 Labs: Abnormal Lab Results - Last 24 Hours (Table) 04/08/22 04/08/22 04/08/22 Range/Units 11:46 16:42 20:27 RBC (4.30-5.90) m/uL Hgb (13.0-17.5) gm/dL Hct (39.0-53.0) % MCV (80.0-100.0) fL Neutrophils # (1.3-7.7) k/uL Lymphocytes # (1.0-4.8) k/uL Chloride (98-107) mmol/L Carbon Dioxide (22-30) mmol/L BUN (9-20) mg/dL POC Glucose (mg/dL) 128 H 140 H 115 H (70-110) mg/dL Calcium (8.4-10.2) mg/dL C-Reactive Protein (<1.0) mg/dL 04/09/22 04/09/22 Range/Units 05:37 05:37 RBC 2.90 L (4.30-5.90) m/uL Hgb 9.6 L (13.0-17.5) gm/dL Hct 29.3 L (39.0-53.0) % MCV 101.1 H (80.0-100.0) fL Neutrophils # 8.8 H (1.3-7.7) k/uL Lymphocytes # 0.8 L (1.0-4.8) k/uL Chloride 116 H (98-107) mmol/L Carbon Dioxide 20 L (22-30) mmol/L BUN 22 H (9-20) mg/dL POC Glucose (mg/dL) (70-110) mg/dL Calcium 8.0 L (8.4-10.2) mg/dL C-Reactive Protein 6.2 H (<1.0) mg/dL Microbiology - Last 24 Hours (Table) 04/07/22 05:20 Gram Stain - Final Sputum Sputum Culture - Final Assessment and Plan Assessment: Left lower lobe pneumonia suspicion for gram-negative infection Covid infection Acute hypoxic respiratory failure, resolved Anemia with hemoglobin stable Diabetes mellitus Hypertension Hyperlipidemia History of seizure disorder History of multiple sclerosis Chronic back pain status post spinal stimulator History of GERD Plan: Continue with cefepime Follow-up sputum culture Continue with oxygen as needed Continue with dexamethasone Continue with vitamin C, D and zinc Continue gentle hydration Pulmonary team consult Due anemia workup Labs and medication were reviewed.. Continue same treatment. Continue with symptomatic treatment. Resume home medication. Monitor lytes and vitals. DVT and GI prophylaxis. Further recommendations as per clinical course of the patient DVT prophylaxis: no Subcutaneous heparin in view of anemia GI Prophylaxis: Pepcid Discharge in 24-48 hours if he keeps improving
[2022-04-09 20:22] LABS: Glucose,Whole Blood 127 mg/dL (70-110)
[2022-04-10 02:20] VITALS: RESP 18
[2022-04-10] MEDS: CEFEPIME 2 GM in SODIUM CHLORIDE 0.9% 100 ML IVPB SCH (05:40)
[2022-04-10] MEDS: PANTOPRAZOLE 40 MG TABLET PO SCH (05:41)
[2022-04-10] MEDS: metFORMIN 500 MG TAB PO SCH (05:41)
[2022-04-10] MEDS: FUROSEMIDE 20 MG TAB PO SCH (05:41)
[2022-04-10] MEDS: clonazePAM 1 MG TAB PO SCH (05:41)
[2022-04-10] MEDS: DIVALPROEX ER 500 MG TAB.ER.24H PO SCH ×2 (05:41→12:01)
[2022-04-10] MEDS: LACOSAMIDE 50 MG TABLET PO SCH (05:42)
[2022-04-10] MEDS: OLANZapine 5 MG TAB PO SCH (05:42)
[2022-04-10] MEDS: SODIUM CHLORIDE 0.9% 1,000 ML IV SCH (05:42)
[2022-04-10] MEDS: METOCLOPRAMIDE 5 MG TAB PO SCH ×2 (05:42→12:01)
[2022-04-10 05:58] LABS: Glucose,Whole Blood 81 mg/dL (70-110)
--- NOTE | 2022-04-10 07:14 | XR ---
EXAMINATION TYPE: XR chest 1V portable DATE OF EXAM: 04/10/2022 6:58 AM COMPARISON: Chest radiographs from 04/07/2022 TECHNIQUE: XR chest 1V portable Portable AP radiograph of the chest. CLINICAL INDICATION:Male, 56 years old with history of CoVID, LLL pneumonia; FINDINGS: Lungs/Pleura: No pneumothorax or pleural effusion. Decreased left basilar infiltrate. Pulmonary vascu larity: Unremarkable. Heart/mediastinum: Cardiomediastinal silhouette is unremarkable. Musculoskeletal: No acute osseous pathology. Other findings: Similar position of stimulator generator device along the left chest with leads enter ing the left base of the neck. Spinal stimulator leads are demonstrated involving the mid thoracic sp ine. IMPRESSION: Decreased left basilar infiltrate.
[2022-04-10] MEDS: INSULIN ASPART (NovoLOG) 100 UNIT/ML VIAL SQ SCH ×2 (07:59→11:55)
[2022-04-10] MEDS: ASCORBIC ACID 500 MG TAB PO SCH (08:04)
[2022-04-10] MEDS: CHOLECALCIFEROL 125 MCG (5000 IU) TABLET PO SCH (08:04)
[2022-04-10] MEDS: DEXAMETHASONE SOD PHOSPHATE 10 MG/ML 1 ML VIAL IVP SCH (08:04)
[2022-04-10 08:54] VITALS: BP 142/82; TEMP 97.7
[2022-04-10 10:21] VITALS: PULSE 70
--- NOTE | 2022-04-10 11:15 | CDI ---
Documentation Clarification Form Date: 04/10/2022 10:21:50 AM From: Angela Keller RN CCDS Phone: [phone] Admit Date: 04/06/2022 3:30:00 PM Patient Name: Alonzo Taylor Visit Number: [id number] Discharge Date: ATTENTION: The Clinical Documentation Specialists (CDI) and [facility] Coding Staff appreciate your assistance in clarifying documentation. Please respond to the clarification below the line at the bottom and electronically sign. The CDI & [facility] Coding staff will review the response and follow-up if needed. Please note: Queries are made part of the Legal Health Record. If you have any questions, please contact the author of this message via ITS. Dr. Grant Green, Sepsis is documented in pulmonary notes 04/07- 04/09. Based on this information and the findings below, is there an additional diagnosis that is clinically appropriate for this patient? History/Risk Factors: [id number] male presents to the ED with worsening shortness of breath, cough and congestion, positive COVID 19 last week 7 days post infection. Medical History: BLANE with CPAP, DM, Bipolar disorder, MS and Seizure disorder. H&P, 04/07. Clinical Indicators: H&P, 04/07: He remains hypotensive. He is admitted to the ICU. WBC, 04/06: 12.5 Neutrophils, 04/06: 9.80 SARS-CoV-2 (PCR), 04/06: Detected A Sputum culture, 04/07: Final Moderate Normal Respiratory Josie CXR: 04/06 Lingular infiltrate. CXR: 04/07 Left basilar infiltrate. Vitals signs: 04/06 12: B/P 135/84; HR 100; Temp 100.4F Oral; RR 22; SpO2 93% room air 04/06 14:10 B/P 78/40; HR 89; Temp 98.7 F Oral; RR 20; SpO2 93% room air 04/06 15:40 B/P 75/44; HR 89; RR 23; SpO2 90% Treatment: 04/06 Tylenol 1,000mg PO x 1; 04/06 Decadron IV x 1; 04/06 04/08 Norepinephrine IV Antibiotics: 04/06 Cefepime IVPB x 1; 04/07 Cefepime IVPB Q12H change 04/07 Q8H. IV Bolus: 04/06 3L NS bolus Is there an additional diagnosis that is clinically appropriate for this patient? [ ] Sepsis, present on admission [ ] Sepsis ruled out [ ] Other, please specify [ ] Unable to determine SIRS Criteria: 2 or more of the following may indicate SIRS Temperature < 96.8F (36C) or > 101.0F (38.3C) Heart Rate > 90 bpm Respiratory Rate > 20 breaths/min or PaCO2 < 32 mmHg White Blood Cell Count > 12,000 or < 4,000 cells/mm3 or > 10% bands (Template Last Reviewed: March 2022) has only one minimum reading of fever, no evidence for sepsis clinically MTDD
--- NOTE | 2022-04-10 11:21 | P.PN ---
Subjective Progress Note Date: 04/10/22 Principal diagnosis: COVID-19 infection, with suspected superimposed bacterial pneumonia A very pleasant 56-year-old male patient came into the hospital because of worsening weakness and shortness of breath and cough and congestion. The patient and his what infected with Covid 19 back into their last week. As such, this is at least 9 days post infection. His has further recovered. The patient himself has received Nav [employer] Nav vaccination for Covid 192 do ses and this is his first infection with Covid 19. The patient came in the hospital because of increased cough and congestion. He was having diarrhea last week and his diarrhea has settled. No emesis. His oral intake is quite diminished and the patient was essentially drinking liquids. Urine emergency, the patient tested again positive for Covid 19. The chest x-ray showed a lingular pulmonary infiltrate. The patient received a total of 2 L of IV fluids and the most recent blood pressure is still low with a systolic in the low 80s. As such, I see consultation was requested based on the fact that he hypotension. Note that the patient was not done typically low blood pressure. He was febrile with a T-max of 100.4. The vesicles at 12.7 with a hemoglobin 11.6 and a platelet of 184. Is at 31 with a creatinine of 2.06 and a sodium level is at 137. Cognition profile was normal. His influenza screen was negative. RSV was negative. Troponin was negative. The patient is awake and alert. He is communicating. He has history of MS and is quite debilitated and is having difficulties with mobility and gait. He has neurogenic bladder. Denies having any recurrent infections. No aspiration. No pulmonary source. No recurrent pneumonias.the patient is currently on 2 L of O2 nasal cannula. patient was reevaluated today on 04/07/22, patient is doing great, relatively asymptomatic, in no distress, he was briefly on norepinephrine, presently is off norepinephrine responded well to fluid boluses. Apparently on presentation he was hypotensive, and it wasn't clear whether he was hypotensive because of hypovolemia/dehydration or possibly sepsis related , presently is normotensive, he is on 2 L nasal cannula O2 sats is 94%, and I did not see where the patient had any O2 saturation below 90% even on room air. WBC count 17.1 hemoglobin is 9.8, pro-calcitonin level is extremely elevated at 15.3 highly consistent with superimposed bacterial pneumonia involving the left lower lobe. Hence the patient will remain empirically on antibiotics. Reevaluated today on 04/08/22, patient remains in the ICU, he is comfortable, he actually on room air, and the fluid is at 1 50 mL per hour remains on cefepime his last chest x-ray showed significant infiltrate anddisease involving the left lower lobe. Patient is Covid 19 positive, however I believe were dealing with superimposed pneumonia/bacterial pneumonia involving the left lower lobe considering his elevated Prograf level. CBC today is basically unremarkable electrolytes are normal renal profile is normal. Patient was reevaluated today on 04/09/22, patient remains in the ICU as an overflow, he is on room air, in no distress, he has occasional cough. Patient is being treated for acute COVID-19 infection and left lower lobe superimposed most likely bacterial pneumonia. Clinically the patient is doing great, and I plan to transfer the patient on the ICU to a regular medical floor, I plan to repeat his chest x-ray in a.m., and if not any worse in the left lower lobe, may consider discharge the patient home in the next 24 hours. I am seeing this patient, 04/10/22, in follow-up on a general medical floor. Patient continues to have interval improvement in his respiratory status. He is currently sitting up in bed, on room air, in no acute distress. Patient's chest x-ray from today shows improvement in the left basilar infiltrate. He continues on empiric cefepime. He remains afebrile. No new labs to review. vital signs are stable. Objective - Vital Signs Vital signs: Vital Signs Temp 97.7 F 04/10/22 08:00 Pulse 70 04/10/22 08:04 Resp 18 04/10/22 08:04 BP 142/82 04/10/22 08:00 Pulse Ox 97 04/10/22 08:00 FiO2 Intake & Output 04/09/22 04/10/22 04/10/22 18:59 06:59 18:59 Intake Total 700 Output Total 8201 400 152 Balance -4813 -400 -667 Intake: IV 700 Cefepime 2 gm In Sodium 100 Chloride 0.9% 100 ml @ 25 mls/hr IVPB Q8H [facility] Rx#: [id number] Sodium Chloride 0.9% 1, 600 000 ml @ 75 mls/hr IV . [id number] [facility] Rx#:[id number] Output: Urine 2075 400 500 Other: Voiding Method Urinal # Voids 1 - Exam GENERAL EXAM: Alert, 56 year old male, comfortable in no apparent distress. HEAD: Normocephalic and atraumatic EYES: Normal reaction of pupils, equal size. NOSE: Clear with pink turbinates. THROAT: No erythema or exudates. NECK: No masses, no JVD. CHEST: No chest wall deformity. LUNGS: Equal air entry with no crackles, wheeze, rhonchi or dullness. On room air. No conversational dyspnea or accessory muscle use.. CVS: S1 and S2 normal with no audible murmur, regular rhythm. No extra heart sounds ABDOMEN: No hepatosplenomegaly, active bowel sounds, no guarding or rigidity. SPINE: No scoliosis or deformity SKIN: No rashes CENTRAL NERVOUS SYSTEM: No focal deficits, tone is normal in all 4 extremities. EXTREMITIES: There is no peripheral edema, clubbing, or cyanosis. Peripheral pulses are intact. - Labs CBC & Chem 7: 04/09/22 05:37 04/09/22 05:37 Labs: Abnormal Lab Results - Last 24 Hours (Table) 04/09/22 04/09/22 Range/Units 11:23 20:21 POC Glucose (mg/dL) 131 H 127 H (70-110) mg/dL Microbiology - Last 24 Hours (Table) 04/07/22 05:20 Gram Stain - Final Sputum Sputum Culture - Final Assessment and Plan Assessment: Assessment: Hypotension could be secondary to dehydration or possible sepsis with left lower lobe pneumonia superimposed on COVID-19 infection. Resolved Acute COVID-19 infection suspect bacterial superinfection with lingular and left lower lobe infiltrate. Currently receiving empiric cefepime acute kidney injury. Resolved, creatinine down to 0.91 history of MS history of seizure disorder type 2 diabetes history of nephrolithiasis obstructive sleep apnea not compliant with CPAP Plan: Patient's medications, labs, chest x-ray reviewed May switch patient to oral Levaquin for 5 days on discharge Continue COVID-19 cocktail On room air From a pulmonary standpoint, patient is cleared for discharge I have personally seen and examined the patient, performed the documentation and the assessment and plan as written. Number of minutes spent on the visit:10 Time with Patient: Less than 30
[2022-04-10 11:49] LABS: Glucose,Whole Blood 133 mg/dL (70-110)
[2022-04-10] MEDS: LISINOPRIL-HCTZ 10-12.5 MG 1 EACH TAB PO SCH (12:01)
[2022-04-10] MEDS: PROPRANOLOL 40 MG TAB PO SCH (12:01)
[2022-04-10] MEDS: OLANZapine 2.5 MG TAB PO SCH (12:01)
[2022-04-10] MEDS: SERTRALINE 100 MG TAB PO SCH (12:01)
[2022-04-10] MEDS: SIPONIMOD 2 MG PO SCH (12:01)
--- NOTE | 2022-04-11 06:19 | P.DS ---
Providers Date of admission: 04/06/22 15:30 Attending physician: Bruce Khan Consults: 04/06/22 15:29 Consult Physician Routine Consulting Provider: Za Crandall Consult Reason/Comments: covid Do you want consulting provider notified?: Yes Primary care physician: Bruce Khan [place] Hospital Course: Diagnoses: Left lower lobe pneumonia suspicion for gram-negative infection Covid infection Acute hypoxic respiratory failure, resolved Anemia with hemoglobin stable Diabetes mellitus Hypertension Hyperlipidemia History of seizure disorder History of multiple sclerosis Chronic back pain status post spinal stimulator History of GERD Hospital course: This is a pleasant 56 years old male with past medical history of coronary artery disease, diabetes, GERD, hyperlipidemia, hypertension, seizure disorder, sleep apnea, multiple sclerosis, chronic back pain status post spinal stimulator Patient was admitted with respiratory infection felt to secondary to call with infection but chest x-ray showed infiltrate mainly in the left lower lobe, and review the chest x-ray by myself From today show significant improvement in his infiltrate in the left lower lobe. Initially he was found to have right lower lobe pneumonia suspected secondary to gram-negative bacteria. He also had Covid infection with no significant Covid pneumonia and no increased inflammatory markers. Patient was treated with cefepime and dexamethasone. Patient showed interval improvement and on the day of discharge his breathing is significantly improved. He was saturating 96-97% on room air. Patient does not qualify for home oxygen. I discussed the case with the pulmonary service today and he was cleared for discharge. Patient will be discharged on short course of Levaquin 5 days per my discussion with Dr. Wolfe Patient himself denies any other symptoms and he wants to go home today. No chest pain, no diarrhea or vomiting, no dysuria urgency, no confusion headache or weakness or numbness. Problems and management plan were discussed with the patient and he verbalized understanding and acceptance Patient was found stable and can be discharged home in guarded prognosis however he needs follow-up as an outpatient. Patient was instructed to follow up with PCP Dr. Rowe within one week and patient agrees Patient was instructed to follow up with his vehicle mechanic Dr. Calderon in one week and he agrees to make his appointments Physical exam Gen: patient is a AAOx3, no distress CVS: S1-S2, RRR, no murmur Lungs: B/L CTA, no wheezing Abdomen: soft, no distention, no tenderness, positive bowel sounds Extremity: no leg edema or induration Time spent more than 35 minutes Patient Condition at Discharge: Critical Plan - Discharge Summary Discharge Rx Participant: Yes New Discharge Prescriptions: New Ascorbic Acid [Vitamin C] 500 mg PO BID #60 tab dexAMETHasone [Decadron] 6 mg PO DAILY 5 Days #5 tablet Levofloxacin [Levaquin] 500 mg PO DAILY 5 Days #5 tab Cholecalciferol [Vitamin D3 (125 Mcg = 5000 Iu)] 125 mcg PO DAILY #30 tab Continue metFORMIN HCL [Glucophage] 1,000 mg PO BID@0600,1700 Lacosamide [Vimpat] 200 mg PO BID@0600,1700 Lisinopril-Hctz 10-12.5 mg [Zestoretic 10-12.5] 1 tab PO BID@1200,2200 Propranolol [Inderal] 40 mg PO BID@1200,2200 Siponimod [Mayzent] 2 mg PO DAILY@1200 Metoclopramide [Reglan] 5 mg PO TID@0600,1200,1700 Insulin Lispro [humaLOG Kwikpen] See Protocol SQ ACHS PRN PRN Reason: HIGH BLOOD SUGAR Furosemide [Lasix] 20 mg PO DAILY@0600 Divalproex ER [Depakote ER] 500 mg PO QID@,,, Sertraline [Zoloft] 100 mg PO DAILY@1200 Omeprazole 40 mg PO BID@0600,2200 OLANZapine [ZyPREXA] 2.5 mg PO DAILY@1200 OLANZapine [ZyPREXA] 5 mg PO BID@0500,1700 clonazePAM [KlonoPIN] 1 mg PO BID@0600,1700 Ferrous Sulfate [Iron (65 MG Elemental)] 325 mg PO DAILY@1700 Discharge Medication List Lacosamide [Vimpat] 200 mg PO BID@0600,1700 02/22/19 [History] metFORMIN HCL [Glucophage] 1,000 mg PO BID@0600,1700 02/22/19 [History] Lisinopril-Hctz 10-12.5 mg [Zestoretic 10-12.5] 1 tab PO BID@1200,2200 05/18/19 [History] Divalproex ER [Depakote ER] 500 mg PO QID@06,,,11/04/20 [History] Propranolol [Inderal] 40 mg PO BID@1200,2200 11/04/20 [History] Siponimod [Mayzent] 2 mg PO DAILY@1200 11/04/20 [History] Ferrous Sulfate [Iron (65 MG Elemental)] 325 mg PO DAILY@1700 01/11/22 [History] Insulin Lispro [humaLOG Kwikpen] See Protocol SQ ACHS PRN 01/11/22 [History] Metoclopramide [Reglan] 5 mg PO TID@0600,1200,1700 01/11/22 [History] OLANZapine [ZyPREXA] 2.5 mg PO DAILY@1200 01/11/22 [History] OLANZapine [ZyPREXA] 5 mg PO BID@0500,1700 01/11/22 [History] Omeprazole 40 mg PO BID@0600,2200 01/11/22 [History] Sertraline [Zoloft] 100 mg PO DAILY@1200 01/11/22 [History] clonazePAM [KlonoPIN] 1 mg PO BID@0600,1700 01/11/22 [History] Furosemide [Lasix] 20 mg PO DAILY@0600 04/06/22 [History] Ascorbic Acid [Vitamin C] 500 mg PO BID #60 tab 04/10/22 [Rx] Cholecalciferol [Vitamin D3 (125 Mcg = 5000 Iu)] 125 mcg PO DAILY #30 tab 04/10/22 [Rx] Levofloxacin [Levaquin] 500 mg PO DAILY 5 Days #5 tab 04/10/22 [Rx] dexAMETHasone [Decadron] 6 mg PO DAILY 5 Days #5 tablet 04/10/22 [Rx] Follow up Appointment(s)/Referral(s): Bruce Khan MD [Primary Care Provider] - 1-2 days Samuel Blake DO [Doctor of Osteopathic Medicine] - 1 Week Activity/Diet/Wound Care/Special Instructions: heart healthy diet activity is restricted till you see your doctor Discharge Disposition: HOME WITH HOME HEALTH SERVICES
== END 2022-04-10 13:04 | disposition home health service (06) | DRG 177 ==
LOC: EC 12:21 → 2SICU 15:30 → 4SSUR 04-10 03:17
PROVIDERS: ADMIT Family Medicine; ATTEND Family Medicine
DX: U07.1 COVID-19 (principal); J12.82 Pneumonia due to coronavirus disease 2019; J96.01 Acute respiratory failure with hypoxia; J15.9 Unspecified bacterial pneumonia; N17.9 Acute kidney failure, unspecified; J44.0 Chronic obstructive pulmonary disease with (acute) lower respiratory infection; E11.42 Type 2 diabetes mellitus with diabetic polyneuropathy; G35 Multiple sclerosis; G40.909 Epilepsy, unspecified, not intractable, without status epilepticus; E11.43 Type 2 diabetes mellitus with diabetic autonomic (poly)neuropathy; K31.84 Gastroparesis; D86.0 Sarcoidosis of lung; G47.33 Obstructive sleep apnea (adult) (pediatric); R79.89 Other specified abnormal findings of blood chemistry; D64.9 Anemia, unspecified; I10 Essential (primary) hypertension; E78.5 Hyperlipidemia, unspecified; Z87.442 Personal history of urinary calculi; E86.0 Dehydration; E86.1 Hypovolemia; F31.9 Bipolar disorder, unspecified; G89.29 Other chronic pain; G62.9 Polyneuropathy, unspecified; I25.10 Atherosclerotic heart disease of native coronary artery without angina pectoris; N31.9 Neuromuscular dysfunction of bladder, unspecified; Z79.84 Long term (current) use of oral hypoglycemic drugs; Z79.899 Other long term (current) drug therapy; Z91.199 Patient's noncompliance with other medical treatment and regimen due to unspecified reason; Z98.42 Cataract extraction status, left eye; Z98.41 Cataract extraction status, right eye; Z96.1 Presence of intraocular lens; Z98.1 Arthrodesis status; Z88.0 Allergy status to penicillin; Z88.8 Allergy status to other drugs, medicaments and biological substances; Z98.49 Cataract extraction status, unspecified eye
CPT/HCPCS: 36415; 71045; 71046; 80048; 81003; 83605; 83615; 84145; 84484; 85025; 85610; 85730; 86140; 87070; 87205; 87636; 93005; 94760; 96361; 96365; 96375; 99291

== ENCOUNTER → 2022-11-29 | Outpatient (CLI) | payer BC, MEDICARE ==
[2022-11-29 08:31] LABS: ALT 19 U/L (4-49); AST 33 U/L (17-59); African American GFR (CKD) 54 (>60 ml/min/1.73 sqM); Albumin 4.4 g/dL (3.5-5.0); Albumin/Globulin Ratio 1.4; Alkaline Phosphatase 68 U/L (38-126); Anion Gap 13 mmol/L; Blood Urea Nitrogen 37 mg/dL (9-20); Calcium 9.6 mg/dL (8.4-10.2); Carbon Dioxide 22 mmol/L (22-30); Chloride 103 mmol/L (98-107); Globulin 3.1 g/dL; Glucose 100 mg/dL (74-99); Non-African American GFR(CKD) 47 (>60 ml/min/1.73 sqM); Potassium 5.4 mmol/L (3.5-5.1); Sodium 138 mmol/L (137-145); Total Bilirubin 0.4 mg/dL (0.2-1.3); Total Protein 7.5 g/dL (6.3-8.2)
[2022-11-29 10:48] LABS: Valproic Acid (Depakene) 114.9 ug/mL
[2022-11-29 11:04] LABS: T4, Free (Free Thyroxine) 0.79 ng/dL (0.78-2.19)
[2022-11-29 11:24] LABS: Basophils # (A) 0.07 X 10*3/uL (0.00-0.10); Basophils % (A) 1.2 %; Eosinophils # (A) 0.36 X 10*3/uL (0.04-0.35); Eosinophils % (A) 6.4 %; HCT 36.4 % (39.6-50.0); HGB 11.8 d/dL (13.0-17.0); Lymphocytes # (A) 1.09 X 10*3/uL (0.90-5.00); Lymphocytes % (A) 19.4 %; MCH 32.2 pg (27.0-32.0); MCHC 32.4 d/dL (32.0-37.0); MCV 99.5 FL (80.0-97.0); Mean Platelet Volume 9.8 FL (9.5-12.2); Monocytes # (A) 0.85 X 10*3/uL (0.20-1.00); Monocytes % (A) 15.1 %; NRBC Per 100 WBC 0 X 10*3/uL (0.00-0.01); Neutrophils # (A) 3.03 X 10*3/uL (1.80-7.70); Platelet Count 177 X 10*3/uL (140-440); RBC 3.66 X 10*6/uL (4.40-5.60); RDW 13.6 % (11.5-14.5); WBC 5.62 X 10*3/uL (4.50-10.00)
[2022-11-29 12:32] LABS: Hepatitis A Antibody IgM Nonreactive; Hepatitis B Core IgM Nonreactive; Hepatitis B Surface Antigen Nonreactive; Hepatitis C IgG Antibody Nonreactive
[2022-11-29 18:05] LABS: HIV 2 AB Non-Reactive (Non-Reactive); HIV AB P24 Non-Reactive (Non-Reactive); HIV P24 AG Non-Reactive (Non-Reactive)
--- NOTE | 2022-11-29 23:28 | CT ---
EXAMINATION TYPE: CT brain cspine wo con DATE OF EXAM: 11/29/2022 COMPARISON: Prior CT brain January 11, 2022. Prior CT cervical spine June 14, 2018 HISTORY: LT side numbness and pain. Hx MS CT DLP: 633 mGycm. Automated Exposure Control for Dose Reduction was Utilized. TECHNIQUE: CT scan of the head and cervical spine are performed without contrast. FINDINGS: There is no acute intracranial hemorrhage or midline shift identified. Mild ventricular a nd sulcal prominence redemonstrated. Moderate low-attenuation in the deep and periventricular white matter redemonstrated. Bilateral aphakia redemonstrated. The visualized sinuses are clear. Cervical spine is visualized in its entirety from C1 through upper thoracic levels and redemonstrate scoliotic curvature without evidence of acute fracture or dislocation. Prevertebral soft tissue shea ins within normal limits. The C1-C2 articulation is unremarkable on the coronal images. Vertebral b eloy heights are maintained. Moderate disc space narrowing at C5-C6 level is more prominent from prior . Disc calcification with mild disc space narrowing at C6-C7 level is redemonstrated. Multilevel post erior disc herniations efface the anterior thecal sac with largest being a left paracentral/foraminal disc protrusion at C4-C5 level axial image 66 and left C5-C6 level axial image 73 causing at least m oderate left-sided neural foraminal narrowing. Findings can be better evaluated with MRI if desired. There is near the left thyroid gland redemonstrated. Lung apices show no pneumothorax. IMPRESSION: 1. Worsening multilevel degenerative changes in cervical spine as detailed above. 2. [id number] diffuse cerebral atrophy and moderate nonspecific white matter changes redemonstr ated. No significant change from most recent prior CT brain study.
== END | disposition home or self-care (01) ==
LOC: RADCTMAIN 06:58
PROVIDERS: ATTEND Psychiatry & Neurology Neurology
DX: Z01.818 Encounter for other preprocedural examination (principal); M47.812 Spondylosis without myelopathy or radiculopathy, cervical region; M50.221 Other cervical disc displacement at C4-C5 level; M48.02 Spinal stenosis, cervical region; G35 Multiple sclerosis; R56.9 Unspecified convulsions; G31.9 Degenerative disease of nervous system, unspecified; R90.82 White matter disease, unspecified
CPT/HCPCS: 70450; 72125; 80053; 80074; 80164; 82306; 83036; 84439; 84443; 85025; 87390

== ENCOUNTER → 2024-02-06 | Outpatient (CLI) | payer BC ==
[2024-02-06 09:32] LABS: ALT 10 U/L (4-49); African American GFR (CKD) 54 (>60 ml/min/1.73 sqM); Albumin/Globulin Ratio 1.1; Anion Gap 11 mmol/L; Blood Urea Nitrogen 36 mg/dL (9-20); Calcium 9.2 mg/dL (8.4-10.2); Carbon Dioxide 30 mmol/L (22-30); Chloride 92 mmol/L (98-107); Globulin 3.6 g/dL; Glucose 116 mg/dL (74-99); Non-African American GFR(CKD) 46 (>60 ml/min/1.73 sqM); Sodium 133 mmol/L (137-145); Total Bilirubin 0.8 mg/dL (0.2-1.3); Total Protein 7.6 g/dL (6.3-8.2)
[2024-02-06 10:05] LABS: Basophils % (A) 0 %; Eosinophils # (A) 0.2 k/uL (0-0.7); Eosinophils % (A) 2 %; HCT 37.8 % (39.0-53.0); Lymphocytes # (A) 0.8 k/uL (1.0-4.8); Lymphocytes % (A) 10 %; MCH 31.2 pg (25.0-35.0); MCHC 31.8 g/dL (31.0-37.0); MCV 98.3 fL (80.0-100.0); Mean Platelet Volume 7.6; Monocytes # (A) 0.5 k/uL (0-1.0); Monocytes % (A) 7 %; Neutrophils # (A) 6.6 k/uL (1.3-7.7); Neutrophils % (A) 81 %; Platelet Count 106 k/uL (150-450); RBC 3.84 m/uL (4.30-5.90); RDW 12.8 % (11.5-15.5); WBC 8.2 k/uL (3.8-10.6)
[2024-02-06 10:14] LABS: AST 30 U/L (17-59); Alkaline Phosphatase 77 U/L (38-126); Potassium 3.5 mmol/L (3.5-5.1)
[2024-02-06 10:47] LABS: Valproic Acid (Depakene) 154.2 ug/mL
--- NOTE | 2024-02-06 11:13 | CT ---
EXAMINATION TYPE: CT brain wo/w con CT DLP: 2053.4 mGycm, Automated exposure control for dose reduction was used. DATE OF EXAM: 02/06/2024 11:03 AM COMPARISON: CT brain C-spine 11/29/2022, CT brain 01/11/2022, 05/05/2019. CLINICAL INDICATION:Male, 58 years old with history of G35 MULTIPLE SCLEROSIS; PHH, h/o MS and seizur es TECHNIQUE: Axial CT images of the brain were obtained followed by contrast enhanced axial images of t he brain with 80 cc of ISO-view 370 IV contrast. One or more CT dose reduction strategies were utiliz ed during this examination. Coronal and sagittal reformats reviewed. FINDINGS: Extra-axial spaces: No abnormal extra-axial fluid collections. Ventricular system: Within normal limits Cerebral parenchyma: Age-appropriate cerebral parenchymal volume. No acute intraparenchymal hemorrhag e or mass effect. The meier-white junction is well differentiated. Scattered hypoattenuating areas ar e seen within the periventricular and subcortical white matter. This is again most pronounced within the bilateral frontal lobes. No abnormal enhancement is seen after the administration of intravenous contrast. Cerebellum: Unremarkable. Mass effect: No evidence of midline shift. Intracranial vasculature: Atherosclerotic calcifications of the intracranial vessels. Soft tissues: Normal. Calvarium/osseous structures: No depressed skull fracture. Paranasal sinuses and mastoid air cells: The mastoid air cells are clear. Minimal mucosal thickening of the sphenoid sinuses and ethmoid sinuses. The frontal sinuses are clear. Moderate mucosal thickeni ng of the bilateral visualized maxillary sinuses. Visualized orbits: Bilateral aphakia IMPRESSION: 1. No acute intracranial process and no evidence to suggest intracranial mass. 2. Stable nonspecific white matter changes which may relate to reported multiple sclerosis versus oth er etiologies such as chronic small vessel ischemic disease. No corresponding enhancement to suggest active demyelination. [facility], , 02/06/2024 11:11 AM
--- NOTE | 2024-02-06 11:38 | CT ---
EXAMINATION TYPE: CT CervThoracic spine wo/w con CT DLP: 3057.6 mGycm, Automated exposure control for dose reduction was used. DATE OF EXAM: 02/06/2024 11:03 AM COMPARISON: CT brain C-spine 11/29/2022, CT chest abdomen 01/11/2022. CLINICAL INDICATION:Male, 58 years old with history of G35 MULTIPLE SCLEROSIS; PHH, h/o MS and seizur es TECHNIQUE: Axial CT images of the cervical and thoracic spine were obtained before and after the unev entful administration of 80 mL of Isovue-370 intravenously. Coronal and sagittal reformatted images w ere also reviewed. FINDINGS: Fracture: Fracture. Stable superior endplate compression fracture of the L1 vertebral body with appro ximately 10% height loss. No retropulsion. Osseous structures: Disc space narrowing with anterior osteophytosis at C5-C6 and C6-C7. Multilevel S chmorl's nodes involving the mid to lower thoracic spine. Vertebral alignment: Within normal limits. Spinal canal/Neural Foramina: No contrast enhancement identified within the cervical spine. Spinal st imulator leads are identified terminating at the T6-T7 disc space level. Broad-based disc bulge at C4 -C5 with mild effacement of the thecal sac. There is moderate left neural foraminal stenosis at this level secondary to facet arthropathy and uncovertebral joint hypertrophy. Broad-based disc bulge at C 5-C6 with moderate effacement of the intrathecal sac. Mild right and moderate left neural foraminal s tenosis at this level. No significant central canal or neuroforamina stenosis of the thoracic spine. There is artifact invol ving the lower thoracic spine which limits evaluation. No gross evidence of enhancement of the thorac ic spine however the lower thoracic spine is significantly limited due to artifact. Soft tissues: Prevertebral soft tissues are within normal limits. Other: The airway is patent. Patchy tree-in-bud opacities identified within the posterior right upper lung and visualized bilateral lower lobes. Left chest wall single-lead generated device identified w ith lead terminating just lateral to the left thyroid lobe. Coronary artery calcifications. Nonobstru ctive left renal 1.2 cm calculus. Visualized vasculature appears patent. IMPRESSION: 1. No evidence of acute cervicothoracic spine fracture. Stable superior endplate compression deformit y of the L1 vertebral body. 2. No definitive spinal canal enhancement of the cervicothoracic spine to suggest active demyelinatio n. There is poor visualization of the lower thoracic spine due to artifact. 3. Moderate multilevel degenerative disc disease of the cervical spine. Mild multilevel degenerative disc disease of the thoracic spine. 4. Bilateral lower lobe and right upper lobe patchy tree-in-bud nodular opacities. Findings favor an infectious/inflammatory process. 5. Nonobstructive left renal calculus. [facility], , 02/06/2024 11:36 AM
[2024-02-06 16:20] LABS: Hepatitis A Antibody IgM Nonreactive (Nonreactive); Hepatitis B Core IgM Nonreactive (Nonreactive); Hepatitis B Surface Antigen Nonreactive (Nonreactive); Hepatitis C IgG Antibody Nonreactive (Nonreactive); Thyroid Peroxidase Antibodies 9.9 U/mL (0.0-33.0)
[2024-02-07 01:54] LABS: HIV 2 AB Non-Reactive (Non-Reactive); HIV AB P24 Non-Reactive (Non-Reactive); HIV P24 AG Non-Reactive (Non-Reactive)
== END | disposition home or self-care (01) ==
LOC: RADCTMAIN 08:32
PROVIDERS: ATTEND Psychiatry & Neurology Neurology
DX: M50.33 Other cervical disc degeneration, cervicothoracic region (principal); G40.89 Other seizures; G35 Multiple sclerosis; I67.2 Cerebral atherosclerosis; N20.0 Calculus of kidney; M99.71 Connective tissue and disc stenosis of intervertebral foramina of cervical region; M51.44 Schmorl's nodes, thoracic region
CPT/HCPCS: 84591; 84207; 80164; 80165; 80053; 80074; 84443; 82607; 85025; 86376; 82306; 87390; 83036; 72130; 72127; 70470; 36415; Q9967

== ENCOUNTER 2024-02-11 12:43 | Inpatient (IN) | payer BC, MEDICARE ==
[2024-02-11] MEDS: SODIUM CHLORIDE 0.9% 1,000 ML IV ONE (13:34)
[2024-02-11] MEDS: ONDANSETRON 4 MG/2 ML VIAL IVP STA (13:34)
[2024-02-11] MEDS: SODIUM CHLORIDE 0.9% 500 ML 500 ML IV ONE (13:34)
--- NOTE | 2024-02-11 13:38 | ED ---
General Adult HPI - General Chief complaint: Weakness Stated complaint: vomiting, weakness Time Seen by Provider: 02/11/24 13:00 Source: patient, RN notes reviewed, old records reviewed Mode of arrival: ambulatory Limitations: no limitations - History of Present Illness Initial comments: This a 58-year-old male who presents to the emergency department with a 24-year history of multiple sclerosis and has gastroparesis. Patient has been vomiting more over the last 3 weeks according to the and has become weaker and weaker. Patient is now unable to get up and go to the bathroom on his own without assistance and the can no longer handle him and she is afraid he is going to fall and hurt himself. Patient also has been having more seizure-like activity and that is increased ever since the vomiting is increased. - Related Data Home Medications Medication Instructions Recorded Confirmed Lacosamide [Vimpat] 200 mg PO BID@0600,1700 02/22/19 04/06/22 metFORMIN HCL [Glucophage] 1,000 mg PO BID@0600,1700 02/22/19 04/06/22 Lisinopril-Hctz 10-12.5 mg 1 tab PO BID@1200,2200 05/18/19 04/06/22 [Zestoretic 10-12.5] Divalproex ER [Depakote ER] 500 mg PO QID@06,12,,11/04/20 04/06/22 Propranolol [Inderal] 40 mg PO BID@1200,2200 11/04/20 04/06/22 Siponimod [Mayzent] 2 mg PO DAILY@1200 11/04/20 04/06/22 Ferrous Sulfate [Iron (65 MG 325 mg PO DAILY@1700 01/11/22 04/06/22 Elemental)] Insulin Lispro [humaLOG Kwikpen] See Protocol SQ ACHS PRN 01/11/22 04/06/22 Metoclopramide [Reglan] 5 mg PO TID@0600,1200,1700 01/11/22 04/06/22 OLANZapine [ZyPREXA] 2.5 mg PO DAILY@1200 01/11/22 04/06/22 OLANZapine [ZyPREXA] 5 mg PO BID@0500,1700 01/11/22 04/06/22 Omeprazole 40 mg PO BID@0600,2200 01/11/22 04/06/22 Sertraline [Zoloft] 100 mg PO DAILY@1200 01/11/22 04/06/22 clonazePAM [KlonoPIN] 1 mg PO BID@0600,1700 01/11/22 04/06/22 Furosemide [Lasix] 20 mg PO DAILY@0600 04/06/22 04/06/22 Previous Rx's Medication Instructions Recorded Ascorbic Acid [Vitamin C] 500 mg PO BID #60 tab 04/10/22 Cholecalciferol [Vitamin D3 (125 125 mcg PO DAILY #30 tab 04/10/22 Mcg = 5000 Iu)] Levofloxacin [Levaquin] 500 mg PO DAILY 5 Days #5 tab 04/10/22 dexAMETHasone [Decadron] 6 mg PO DAILY 5 Days #5 tablet 04/10/22 Allergies Allergy/AdvReac Type Severity Reaction Status Date / Time Penicillins Allergy Severe Swelling Verified 02/11/24 12:54 prochlorperazine AdvReac Severe Hallucinati Verified 02/11/24 12:54 [From Compazine] ons prochlorperazine edisylate AdvReac Severe Hallucinati Verified 02/11/24 12:54 [From Compazine] ons prochlorperazine maleate AdvReac Severe Hallucinati Verified 02/11/24 12:54 [From Compazine] ons bupropion HCl AdvReac Intermediate Nausea & Verified 02/11/24 12:54 [From Wellbutrin] Vomiting gabapentin [From Neurontin] AdvReac Intermediate Nausea & Verified 02/11/24 12:54 Vomiting amantadine AdvReac Unknown Nausea & Verified 02/11/24 12:54 Vomiting Pork/Porcine Containing AdvReac Unknown Verified 02/11/24 12:54 Products [Pork] Review of Systems ROS Statement: Those systems with pertinent positive or pertinent negative responses have been documented in the HPI. ROS Other: All systems not noted in ROS Statement are negative. Past Medical History Past Medical History: Chest Pain / Angina, Diabetes Mellitus, Eye Disorder, GERD/Reflux, Hyperlipidemia, Hypertension, Memory Impairment, Musculoskeletal Disorder, Neurologic Disorder, Osteoarthritis (OA), Pneumonia, Renal Disease, Seizure Disorder, Sleep Apnea/CPAP/BIPAP Additional Past Medical History / Comment(s): MS, several brain lesions, possible progressive brain injury, seizures daily-last seizure 09/21/19, IDDM type II, neuropathy L side body, gastroparesis, chronic cervical and lumbar back pain, spinal stimulator in place, L nephrolithiasis, anemia, insomnis, BLANE- cannot tolerate device, occasional bilateral leg edema-uses lasix prn. History of Any Multi-Drug Resistant Organisms: None Reported Past Surgical History: Back Surgery, Heart Catheterization, Orthopedic Surgery, Tonsillectomy Additional Past Surgical History / Comment(s): VNS unit L chest, spinal stimulator, lumbar fusion/cage, Cspine fusion, L knee arthroscopy, bilateral cat aract removals/lens implants Past Anesthesia/Blood Transfusion Reactions: No Reported Reaction Past Psychological History: Anxiety, Depression Smoking Status: Vaper Past Alcohol Use History: Occasional Past Drug Use History: Marijuana - Past Family History Mother Family Medical History: COPD, Hypertension Father Family Medical History: Coronary Artery Disease (CAD), Myocardial Infarction ([place]) Additional Family Medical History / Comment(s): cabg. Father had a Mi at the age of 55 yrs. Heart disease runs strong on father's side of family. General Exam - General Exam Comments Initial Comments: GENERAL: Patient is well-developed and well-nourished. Patient is nontoxic and well- hydrated and is in mild distress. ENT: Neck is soft and supple. No significant lymphadenopathy is noted. Oropharynx is clear. Moist mucous membranes. Neck has full range of motion without eliciting any pain. EYES: The sclera were anicteric and conjunctiva were pink and moist. Extraocular movements were intact and pupils were equal round and reactive to light. Eyelids were unremarkable. PULMONARY: Unlabored respirations. Good breath sounds bilaterally. No audible rales rhonchi or wheezing was noted. CARDIOVASCULAR: There is a regular rate and rhythm without any murmurs gallops or rubs. ABDOMEN: Soft and nontender with normal bowel sounds. SKIN: Skin is clear with no lesions or rashes and otherwise unremarkable. NEUROLOGIC: Patient is alert and oriented x3. Cranial nerves II through XII are grossly intact. Motor and sensory are also intact. Normal speech, volume and content. Symmetrical smile. MUSCULOSKELETAL: Normal extremities with adequate strength and full range of motion. LYMPHATICS: No significant lymphadenopathy is noted PSYCHIATRIC: Normal psychiatric evaluation. Limitations: no limitations Course Vital Signs 02/11/24 02/11/24 02/11/24 12:50 13:16 13:22 Temperature 98.4 F Pulse Rate 114 H 105 H Respiratory 18 20 20 Rate Blood Pressure 113/71 82/68 O2 Sat by Pulse 95 96 Oximetry 02/11/24 14:29 Temperature Pulse Rate 93 Respiratory 20 Rate Blood Pressure 91/63 O2 Sat by Pulse 95 Oximetry Medical Decision Making - Medical Decision Making EKG is interpreted by myself. EKG shows a sinus rhythm at 110 bpm. SD interval is 361 QRS is 97 QT interval is 304 QTc is 369. Patient's EKG shows no ST segment elevation or depression. Was pt. sent in by a medical professional or institution (, [facility], [employer], urgent care, hospital, or residential...) When possible be specific @ -No Did you speak to anyone other than the patient for history (EMS, parent, family, police, friend...)? What history was obtained from this source @ -No Did you review nursing and triage notes (agree or disagree)? Why? @ -I reviewed and agree with nursing and triage notes Were old charts reviewed (outside hosp., previous admission, EMS record, old EKG, old radiological studies, urgent care reports/EKG's, residential records)? Report findings @ -No old charts were reviewed Differential Diagnosis? @ -Differential Weakness: Hypoglycemia, shock, sepsis, hyponatremia, anemia, infection, [place], ETOH, adverse medicine reaction, overdose, stroke, this is not meant to be an all-inclusive list. EKG interpreted by me (3pts min.). @ -As above X-rays interpreted by me (1pt min.). @ -Chest x-ray shows a small infiltrate CT interpreted by me (1pt min.). @ -None done U/S interpreted by me (1pt. min.). @ -None done What testing was considered but not performed or refused? (CT, X-rays, U/S, labs)? Why? @ -None What meds were considered but not given or refused? Why? @ -None Did you discuss the management of the patient with other professionals (professionals i.e. [facility], [employer], lab, RT, psych nurse, 7th grade social studies teacher, estimator and drafter, teacher, crime prevention police officer, pillowcase folder)? Give summary @ -I spoke with Bruce and Mullally he agreed admit the patient Was smoking cessation discussed for >3mins.? @ -No Was critical care preformed (if so, how long)? @ -No Were there social determinants of health that impacted care today? How? (Homelessness, low income, unemployed, alcoholism, drug addiction, transportation, low edu. Level, literacy, decrease access to med. care, residential, rehab)? @ -No Was there de-escalation of care discussed even if they declined (Discuss DNR or withdrawal of care, Hospice)? DNR status @ -No What co-morbidities impacted this encounter? (DM, HTN, Smoking, COPD, CAD, Cancer, CVA, ARF, Chemo, Hep., AIDS, mental health diagnosis, sleep apnea, morbid obesity)? @ -None Was patient admitted / discharged? Hospital course, mention meds given and route, prescriptions, significant lab abnormalities, going to OR and other pertinent info. @ -Patient has a slightly low sodium and he did receive a bolus of normal saline 1.5 L. Patient also was started on Rocephin for the infiltrate. Dr. Khan will admit the patient and I will write admitting orders. Undiagnosed new problem with uncertain prognosis? @ -No Drug Therapy requiring intensive monitoring for toxicity (Heparin, Nitro, Insulin, Cardizem)? @ -No Were any procedures done? @ -No Diagnosis/symptom? @ -Pneumonia Acute, or Chronic, or Acute on Chronic? @ -Acute Uncomplicated (without systemic symptoms) or Complicated (systemic symptoms)? @ -Complicated Side effects of treatment? @ -No Exacerbation, Progression, or Severe Exacerbation? @ -No Poses a threat to life or bodily function? How? (Chest pain, [place], [place], pneumonia, PE, COPD, DKA, ARF, appy, cholecystitis, CVA, Diverticulitis, Homicidal, Suicidal, threat to staff... and all critical care pts) @ -Yes this could lead to sepsis and endorgan dysfunction Diagnosis/symptom? @ -Weakness Acute, or Chronic, or Acute on Chronic? @ -Acute Uncomplicated (without systemic symptoms) or Complicated (systemic symptoms)? @ -Complicated Side effects of treatment? @ -None Exacerbation, Progression, or Severe Exacerbation] @ -No Poses a threat to life or bodily function? @ -No Diagnosis/symptom? @ -Hyponatremia Acute, or Chronic, or Acute on Chronic? @ -Acute Uncomplicated (without systemic symptoms) or Complicated (systemic symptoms)? @ -Uncomplicated Side effects of treatment? @ -None Exacerbation, Progression, or Severe Exacerbation] @ -No Poses a threat to life or bodily function? @ -No Diagnosis/symptom? @ -Gastroparesis Acute, or Chronic, or Acute on Chronic? @ -Acute Uncomplicated (without systemic symptoms) or Complicated (systemic symptoms)? @ -Complicated Side effects of treatment? @ -None Exacerbation, Progression, or Severe Exacerbation] @ -No Poses a threat to life or bodily function? @ -No - Lab Data Result diagrams: 02/11/24 13:27 02/11/24 13:27 Lab Results 02/11/24 02/11/24 02/11/24 Range/Units 13:27 13: 13:27 WBC 12.4 H (3.8-10.6) k/uL RBC 3.90 L (4.30-5.90) m/uL Hgb 12.6 L (13.0-17.5) gm/dL Hct 37.6 L (39.0-53.0) % MCV 96.4 (80.0-100.0) fL MCH 32.3 (25.0-35.0) pg MCHC 33.5 (31.0-37.0) g/dL RDW 12.9 (11.5-15.5) % Plt Count 112 L (150-450) k/uL MPV 8.1 Neutrophils % 86 % Lymphocytes % 6 % Monocytes % 7 % Eosinophils % 1 % Basophils % 0 % Neutrophils # 10.6 H (1.3-7.7) k/uL Lymphocytes # 0.8 L (1.0-4.8) k/uL Monocytes # 0.9 (0-1.0) k/uL Eosinophils # 0.1 (0-0.7) k/uL Basophils # 0.0 (0-0.2) k/uL Sodium 134 L (137-145) mmol/L Potassium 3.5 (3.5-5.1) mmol/L Chloride 95 L (98-107) mmol/L Carbon Dioxide 22 (22-30) mmol/L Anion Gap 17 mmol/L BUN 55 H (9-20) mg/dL Creatinine 2.29 H (0.66-1.25) mg/dL Est GFR (CKD-EPI)AfAm 36 (>60 ml/min/1.73 sqM) Est GFR (CKD-EPI)NonAf 31 (>60 ml/min/1.73 sqM) Glucose 132 H (74-99) mg/dL Plasma Lactic Acid Ermias 1.3 (0.7-2.0) mmol/L Calcium 9.6 (8.4-10.2) mg/dL Magnesium 2.1 (1.6-2.3) mg/dL Total Bilirubin 0.7 (0.2-1.3) mg/dL AST 23 (17-59) U/L ALT 9 (4-49) U/L Alkaline Phosphatase 91 (38-126) U/L Total Protein 7.6 (6.3-8.2) g/dL Albumin 4.0 (3.5-5.0) g/dL Influenza Type A (PCR) (Not Detectd) Influenza Type B (PCR) (Not Detectd) RSV (PCR) (Not Detectd) SARS-CoV-2 (PCR) (Not Detectd) 02/11/24 Range/Units 13:27 WBC (3.8-10.6) k/uL RBC (4.30-5.90) m/uL Hgb (13.0-17.5) gm/dL Hct (39.0-53.0) % MCV (80.0-100.0) fL MCH (25.0-35.0) pg MCHC (31.0-37.0) g/dL RDW (11.5-15.5) % Plt Count (150-450) k/uL MPV Neutrophils % % Lymphocytes % % Monocytes % % Eosinophils % % Basophils % % Neutrophils # (1.3-7.7) k/uL Lymphocytes # (1.0-4.8) k/uL Monocytes # (0-1.0) k/uL Eosinophils # (0-0.7) k/uL Basophils # (0-0.2) k/uL Sodium (137-145) mmol/L Potassium (3.5-5.1) mmol/L Chloride (98-107) mmol/L Carbon Dioxide (22-30) mmol/L Anion Gap mmol/L BUN (9-20) mg/dL Creatinine (0.66-1.25) mg/dL Est GFR (CKD-EPI)AfAm (>60 ml/min/1.73 sqM) Est GFR (CKD-EPI)NonAf (>60 ml/min/1.73 sqM) Glucose (74-99) mg/dL Plasma Lactic Acid Ermias (0.7-2.0) mmol/L Calcium (8.4-10.2) mg/dL Magnesium (1.6-2.3) mg/dL Total Bilirubin (0.2-1.3) mg/dL AST (17-59) U/L ALT (4-49) U/L Alkaline Phosphatase (38-126) U/L Total Protein (6.3-8.2) g/dL Albumin (3.5-5.0) g/dL Influenza Type A (PCR) Not Detected (Not Detectd) Influenza Type B (PCR) Not Detected (Not Detectd) RSV (PCR) Not Detected (Not Detectd) SARS-CoV-2 (PCR) Not Detected (Not Detectd) Disposition Clinical Impression: Hyponatremia, Weakness, Pneumonia, Gastroparesis Disposition: ADMITTED IP TO THIS HOSP Referrals: Bruce Khan MD [Primary Care Provider] - 1-2 days Time of Disposition: 15:38
[2024-02-11 13:41] LABS: Basophils % (A) 0 %; Eosinophils # (A) 0.1 k/uL (0-0.7); Eosinophils % (A) 1 %; HCT 37.6 % (39.0-53.0); HGB 12.6 gm/dL (13.0-17.5); Lymphocytes # (A) 0.8 k/uL (1.0-4.8); Lymphocytes % (A) 6 %; MCH 32.3 pg (25.0-35.0); MCHC 33.5 g/dL (31.0-37.0); MCV 96.4 fL (80.0-100.0); Mean Platelet Volume 8.1; Monocytes # (A) 0.9 k/uL (0-1.0); Monocytes % (A) 7 %; Neutrophils # (A) 10.6 k/uL (1.3-7.7); Neutrophils % (A) 86 %; Platelet Count 112 k/uL (150-450); RDW 12.9 % (11.5-15.5); WBC 12.4 k/uL (3.8-10.6)
[2024-02-11 13:51] LABS: ALT 9 U/L (4-49); AST 23 U/L (17-59); African American GFR (CKD) 36 (>60 ml/min/1.73 sqM); Alkaline Phosphatase 91 U/L (38-126); Anion Gap 17 mmol/L; Blood Urea Nitrogen 55 mg/dL (9-20); Calcium 9.6 mg/dL (8.4-10.2); Carbon Dioxide 22 mmol/L (22-30); Chloride 95 mmol/L (98-107); Glucose 132 mg/dL (74-99); Magnesium 2.1 mg/dL (1.6-2.3); Non-African American GFR(CKD) 31 (>60 ml/min/1.73 sqM); Potassium 3.5 mmol/L (3.5-5.1); Sodium 134 mmol/L (137-145); Total Bilirubin 0.7 mg/dL (0.2-1.3); Total Protein 7.6 g/dL (6.3-8.2)
--- NOTE | 2024-02-11 14:16 | XR ---
EXAMINATION TYPE: XR chest 2V DATE OF EXAM: 02/11/2024 1:54 PM COMPARISON: 04/10/2022 CLINICAL INDICATION: Male, 58 years old with shortness of breath, history of Difficulty breathing , , TECHNIQUE: AP and lateral views FINDINGS: Heart normal size. Left anterior chest wall generator device with stimulator leads extending to the l eft base of the neck. Spinal stimulator right ventricle in the mid thoracic spinal canal. There is mi ld interstitial prominence. On the lateral view, there is focal patchy posterior basilar opacity but no pleural effusion. IMPRESSION: Focal patchy posterior basilar opacity on the lateral view. Correlate clinically to exclude early pne umonia. [facility], , 02/11/2024 2:14 PM
[2024-02-11] MEDS ORDERED: PNEUMONIA PROTOCOL UTILIZED 1 EACH MISC PO PRN (15:38)
[2024-02-11] MEDS ORDERED: ONDANSETRON 4 MG/2 ML VIAL IVP PRN (15:39)
[2024-02-11] MEDS: cefTRIAXone IN SWFI 1,000 MG/10 ML SYRINGE IVP STA (16:09)
[2024-02-11] MEDS: SODIUM CHLORIDE 0.9% 1,000 ML IV SCH (16:10)
[2024-02-11] MEDS: AZITHROMYCIN 500 MG in SODIUM CHLORIDE 0.9% 250 ML IVPB STA (16:10)
[2024-02-11 17:32] LABS: Appearance,Urine Clear (Clear); Bilirubin,Urine Negative (Negative); Blood,Urine Negative (Negative); Color,Urine Yellow; Glucose,Urine (UA) Negative (Negative); Ketones,Urine Negative (Negative); Leukocyte Esterase,Urine Small (Negative); Mucus,Urine Rare /hpf; Nitrite,Urine Negative (Negative); PH, Urine 5.5 (5.0-8.0); Protein,Urine Negative (Negative); RBC,Urine 2 /hpf (0-5); Specific Gravity,Urine 1.012 (1.001-1.035); Urobilinogen,Urine <2.0 mg/dL (<2.0); WBC,Urine 1 /hpf (0-5)
--- NOTE | 2024-02-11 19:31 | P.CNPUL ---
History of Present Illness Consult date: 02/11/24 Reason for consult: dyspnea, cough, pneumonia Chief complaint: Cough shortness of breath progressive for several weeks History of present illness: 58-year-old male with prior history of gastroparesis along with advanced multiple sclerosis for almost 20 years patient presented emergency department for several week history of progressive cough shortness of breath not feeling well inability to hold anything in the stomach. Patient progressively become weaker with weight loss and emaciation and lately so weak unable to get up and move around decided to bring him into the hospital for further workup and evaluation patient has past medical history significant for seizure as well along with type 2 diabetes mellitus and hypertension hypertensive cardiovascular disease. On arrival he is tachypneic tachycardic with heart rate of 114 respiratory rate 20, oxygen saturation however is 96% on room air, blood pressure soft latest was 82/68 improved with fluid resuscitation labs significant for leukocytosis with W BC count 12.4, hemoglobin hematocrit 12/37 platelet count 112. Chemistry significant for hyponatremia sodium 134, potassium 3.5, BUN/creatinine 55/2.29, glucose 132 lactic acid 1.3 urine analysis small leukocyte esterase. LFTs fairly within normal limit, influenza A as well as influenza B both negative, RSV and COVID-19 also negative, chest x-ray significant for posterior infiltrate likely right lower lobe suspect may be related to aspiration likely chronic intermittent. Currently patient is on bronchodilator with DuoNeb 4 times a day, broad-spectrum antibiotic coverage with Rocephin and Zithromax and Zofran patient is being gently hydrated with normal saline as well with 75 cc an Patient has prior medical history significant for type 2 diabetes mellitus, chronic neuropathy, gastroparesis, chronic cervical and lumbar disc issues, spinal stimulator, left nephrolithiasis, sleep apnea and sleep disordered breathing, history of back surgery history of cardiac catheter angiogram Review of Systems All systems: negative Past Medical History Past Medical History: Chest Pain / Angina, Diabetes Mellitus, Eye Disorder, GERD/Reflux, Hyperlipidemia, Hypertension, Memory Impairment, Musculoskeletal Disorder, Neurologic Disorder, Osteoarthritis (OA), Pneumonia, Renal Disease, Seizure Disorder, Sleep Apnea/CPAP/BIPAP Additional Past Medical History / Comment(s): MS, several brain lesions, possible progressive brain injury, seizures daily-last seizure 09/21/19, IDDM type II, neuropathy L side body, gastroparesis, chronic cervical and lumbar back pain, spinal stimulator in place, L nephrolithiasis, anemia, insomnis, BLANE- cannot tolerate device, occasional bilateral leg edema-uses lasix prn. History of Any Multi-Drug Resistant Organisms: None Reported Past Surgical History: Back Surgery, Heart Catheterization, Orthopedic Surgery, Tonsillectomy Additional Past Surgical History / Comment(s): VNS unit L chest, spinal stimulator, lumbar fusion/cage, Cspine fusion, L knee arthroscopy, bilateral cataract removals/lens implants Past Anesthesia/Blood Transfusion Reactions: No Reported Reaction Past Psychological History: Anxiety, Depression Smoking Status: Vaper Past Alcohol Use History: Occasional Past Drug Use History: Marijuana - Past Family History Mother Family Medical History: COPD, Hypertension Father Family Medical History: Coronary Artery Disease (CAD), Myocardial Infarction ([place]) Additional Family Medical History / Comment(s): cabg. Father had a Mi at the age of 55 yrs. Heart disease runs strong on father's side of family. Medications and Allergies Home Medications Medication Instructions Recorded Confirmed Type Divalproex ER [Depakote ER] 500 mg PO TID 11/04/20 02/11/24 History Metoclopramide [Reglan] 5 mg PO TID 01/11/22 02/11/24 History OLANZapine [ZyPREXA] 2.5 mg PO W/LUNCH 01/11/22 02/11/24 History OLANZapine [ZyPREXA] 5 mg PO BID 01/11/22 02/11/24 History Omeprazole 40 mg PO DAILY 01/11/22 02/11/24 History Sertraline [Zoloft] 100 mg PO DAILY 01/11/22 02/11/24 History Lisinopril-Hctz 10-12.5 mg 2 tab PO DAILY 02/11/24 02/11/24 History [Zestoretic 10-12.5] Ofatumumab [Kesimpta Pen] 20 mg SQ QMONTHLY 02/11/24 02/11/24 History Testosterone [Androgel 1.62%] 1 pump TRANSDERM Q48H 02/11/24 02/11/24 History diazePAM [Valium] 5 mg PO BID PRN 02/11/24 02/11/24 History Allergies Allergy/AdvReac Type Severity Reaction Status Date / Time Penicillins Allergy Severe Swelling Verified 02/11/24 16:07 prochlorperazine AdvReac Severe Hallucinati Verified 02/11/24 16:07 [From Compazine] ons prochlorperazine edisylate AdvReac Severe Hallucinati Verified 02/11/24 16:07 [From Compazine] ons prochlorperazine maleate AdvReac Severe Hallucinati Verified 02/11/24 16:07 [From Compazine] ons bupropion HCl AdvReac Intermediate Nausea & Verified 02/11/24 16:07 [From Wellbutrin] Vomiting gabapentin [From Neurontin] AdvReac Intermediate Nausea & Verified 02/11/24 16:07 Vomiting amantadine AdvReac Unknown Nausea & Verified 02/11/24 16:07 Vomiting Pork/Porcine Containing AdvReac Unknown Verified 02/11/24 16:07 Products [Pork] Physical Exam Vitals: Vital Signs Temp Pulse Resp BP Pulse Ox 02/11/24 18:00 78 20 90/65 97 02/11/24 17:00 100 20 90/60 98 02/11/24 16:00 80 20 99/65 95 02/11/24 14:29 93 20 91/63 95 02/11/24 13:22 20 02/11/24 13:16 105 H 20 82/68 96 02/11/24 12:50 98.4 F 114 H 18 113/71 95 Intake and Output 02/11/24 02/11/24 02/11/24 06:59 14:59 22:59 Other: Weight 95.254 kg - Constitutional General appearance: average body habitus, cooperative, disheveled, mild distress - EENT Eyes: EOMI, PERRLA ENT: normal oropharynx - Neck Carotids: bilateral: upstroke normal Thyroid: bilateral: normal size - Respiratory Respiratory: bilateral: diminished - Cardiovascular Rhythm: regular Heart sounds: normal: S1, S2 - Gastrointestinal General gastrointestinal: normal bowel sounds, soft - Integumentary Integumentary: normal turgor - Neurologic Neurologic: CNII-XII intact - Musculoskeletal Musculoskeletal: gait normal, generalized weakness, strength equal bilaterally - Psychiatric Psychiatric: A&O x's 3, appropriate affect, intact judgment & insight Results - Laboratory Findings CBC and BMP: 02/11/24 13:27 02/11/24 13:27 Abnormal lab findings: Abnormal Labs 02/11/24 02/11/2402/10/24 13:27 13:27 16:15 WBC 12.4 H RBC 3.90 L Hgb 12.6 L Hct 37.6 L Plt Count 112 L Neutrophils # 10.6 H Lymphocytes # 0.8 L Sodium 134 L Chloride 95 L BUN 55 H Creatinine 2.29 H Glucose 132 H Ur Leukocyte Esterase Small H Urine Mucus Rare H - Diagnostic Findings Chest x-ray: report reviewed, image reviewed (Finding as noted above) Assessment and Plan Assessment: Right lower lobe pneumonia likely aspiration pneumonia, continue broad-spectrum antibiotics with Rocephin and Zithromax will add Flagyl as well Aspiration pneumonia likely due to gastroparesis history of seizures, aspiration precaution, obtain speech consultation for swallow evaluation Advanced gastroparesis, patient may benefit from pro motility agent and GI consultation Hypotension and sepsis due to pneumonia, s/p fluid IV to resuscitate, continue to monitor and trend blood pressure close Acute kidney injury, continue to monitor BUN/creatinine closely with rehydration Advanced multiple sclerosis Recurrent seizure patient to be resumed on antiseizure medications may need to start IV, consider neurology evaluation Generalized weakness and medical debility and cachexia due to severe degree of protein calorie malnourishment Electrolyte imbalance with hyponatremia and hypokalemia continue to monitor and trend electrolytes closely Sleep disordered breathing and sleep apnea patient has been noncompliant with CPAP machine likely will need retitration study, will arrange it as outpatient Plan: As above Time with Patient: Greater than 30
[2024-02-11] MEDS: IPRATROPIUM-ALBUTEROL 3 ML NEB INHALATION SCH (20:26)
[2024-02-11] MEDS: DIVALPROEX ER 500 MG TAB.ER.24H PO SCH (23:45)
[2024-02-11] MEDS: METOCLOPRAMIDE 5 MG TAB PO SCH (23:46)
[2024-02-11] MEDS: OLANZapine 10 MG TAB PO SCH (23:46)
--- NOTE | 2024-02-12 00:40 | HP ---
HISTORY AND PHYSICAL SUBJECTIVE: A 58-year-old white male came in with pneumonia, hyponatremia, and dehydration. Three weeks of chronic cough, congestion, shortness of breath with vomiting. Chest x-ray showed pneumonia, symptomatic. Ordered CT of the chest at this point. OBJECTIVE: CARDIOVASCULAR: S1, S2. LUNGS: Scattered wheeze and rhonchi. HEMATOLOGY: Negative Homans. PSYCH: Calm mood and affect. He is a known diabetic, sleep apnea, COPD. Broad-spectrum antibiotics was started in the ER. History of seizures, had been having more seizures lately due to pneumonia. MMODL / IJN: [id number] /
[2024-02-12] MEDS: metroNIDAZOLE-NS PMX 500 MG in SALINE 1 100ML.BAG IVPB SCH (02:00)
--- NOTE | 2024-02-12 07:50 | CT ---
EXAMINATION TYPE: CT chest wo con DATE OF EXAM: 02/12/2024 COMPARISON: 01/11/2022 HISTORY: 58-year-old male with community-acquired pneumonia , cough. TECHNIQUE: Contiguous axial scanning of the chest without IV contrast. Coronal/sagittal reconstructio ns performed. CT DLP: 448.9mGycm. Automatic exposure control utilized for a dose reduction. FINDINGS: Left anterior chest wall generator device. Leads extending up to the left base of the neck. Spinal st imulator is in lower thoracic spinal canal. Heart is normal size with trace pericardial effusion. LAD and RCA coronary calcifications are present . Aorta normal caliber with conventional vessel branching anatomy. No thoracic lymphadenopathy by CT size criteria. Patchy posterior basilar opacities. Subtle tree-in-bud interstitial infiltrate extends along the post erior aspect of the midlung. No pleural effusion. A few scattered 3 and 4 mm pulmonary nodules some o f which are calcified appear to have been present previously. Calcified nodules suggests previous gra nulomatous disease. Visualized upper abdomen shows partially visualized centrally located stone left kidney measuring 1.1 cm. A smaller 3 mm stone is also present in the left kidney. Bones: Accentuated midthoracic kyphosis. Chronic appearing mild superior endplate deformity L1. IMPRESSION: 1. Posterior bibasilar airspace infiltrate. Consider infectious or aspiration pneumonitis. 2. Some concurrent tree-in-bud infiltrate extends up to the right mid lung. This may be seen with inf ectious bronchiolitis or aspiration. 3. Left-sided nephrolithiasis with a partially visualized 1.1 cm centrally located stone. [facility], , 02/12/2024 7:48 AM
--- NOTE | 2024-02-12 08:32 | XR ---
EXAMINATION TYPE: XR chest 2V DATE OF EXAM: 02/12/2024 6:52 AM COMPARISON: 02/11/2024 CLINICAL INDICATION: Male, 58 years old with history of pneumonia, , TECHNIQUE: Frontal and lateral views FINDINGS: Heart normal size. Focal medial right basilar and posterior basilar patchy airspace opacity persists. Spinal stimulator array centered along the mid thoracic spinal canal. Left anterior chest wall gener ator device with lead extending to the left base of the neck. No pleural effusion. IMPRESSION: Right basilar pneumonia persists. [facility], , 02/12/2024 8:30 AM
--- NOTE | 2024-02-12 08:46 | HP ---
HISTORY AND PHYSICAL CONTINUATION: PHYSICAL EXAMINATION: VITAL SIGNS: Reviewed. Afebrile. Blood pressure is 90s over 60s, O2 is 95% on room air, temp is . CARDIOVASCULAR: S1, S2. LUNGS: Scattered wheeze, rhonchi x4. PSYCH: Fair mood and affect. NEUROLOGIC: Alert and oriented x3. Cranial nerves intact. INTEGUMENT: Dry skin turgor. Dry mucous membranes. X-ray shows pneumonia. Has a history of sleep apnea, diabetes, hypertension, bipolar disorder. REVIEW OF SYSTEMS: A 14-point review of systems otherwise negative. Hypotension in the ER improved with fluids. PAST MEDICAL HISTORY: As mentioned above. FAMILY HISTORY: Mother, hypertension, COPD. Father, coronary artery disease, myocardial infarction. ASSESSMENT: Right lower lobe pneumonia, aspiration pneumonia, broad-spectrum antibiotics with Flagyl, Rocephin, azithromycin, electrolyte imbalance, hypokalemia, hyponatremia, dehydration and rehydration. Sleep disorder. He is noncompliant with the CPAP machine, needs a titration study. Prognosis guarded. MMODL / IJN: [id number] /
[2024-02-12] MEDS: OLANZapine 5 MG TAB PO SCH (08:48)
[2024-02-12] MEDS: SERTRALINE 100 MG TAB PO SCH (08:50)
[2024-02-12] MEDS: PANTOPRAZOLE 40 MG TABLET PO SCH (08:51)
[2024-02-12 09:04] LABS: ALT <5 U/L (10-49); AST 18 U/L (14-35); Albumin 2.9 g/dL (3.8-4.9); Albumin/Globulin Ratio 1.21 Ratio (1.60-3.17); Alkaline Phosphatase 59 U/L (41-126); BUN/Creat Ratio 25.83 Ratio (12.00-20.00); Blood Urea Nitrogen 46.5 mg/dL (9.0-27.0); Calcium 8.5 mg/dL (8.7-10.3); Chloride 103 mmol/L (96-109); Globulin 2.4 g/dL (1.6-3.3); Glucose 79 mg/dL (70-110); Potassium 3.9 mmol/L (3.5-5.5); Sodium 139 mmol/L (135-145); Total Bilirubin 0.2 mg/dL (0.3-1.2); Total Protein 5.3 g/dL (6.2-8.2)
[2024-02-12 09:30] LABS: Basophils # (A) 0.03 X 10*3/uL (0.00-0.10); Basophils % (A) 0.6 %; Eosinophils # (A) 0.09 X 10*3/uL (0.04-0.35); Eosinophils % (A) 1.9 %; HGB 9.3 g/dL (13.0-17.0); Immature Platelet Fraction 4.1 % (1.1-6.1); Lymphocytes # (A) 1.01 X 10*3/uL (0.90-5.00); Lymphocytes % (A) 21.3 %; MCH 31.6 pg (27.0-32.0); MCHC 32.1 g/dL (32.0-37.0); MCV 98.6 FL (80.0-97.0); Mean Platelet Volume 10.7 FL (9.5-12.2); Monocytes # (A) 0.63 X 10*3/uL (0.20-1.00); Monocytes % (A) 13.3 %; NRBC Per 100 WBC 0 X 10*3/uL (0.00-0.01); Neutrophils # (A) 2.83 X 10*3/uL (1.80-7.70); Neutrophils % (A) 59.5 %; Platelet Count 72 X 10*3/uL (140-440); RBC 2.94 X 10*6/uL (4.40-5.60); RDW 13.6 % (11.5-14.5); WBC 4.75 X 10*3/uL (4.50-10.00)
[2024-02-12] MEDS: AZITHROMYCIN 500 MG TAB PO SCH (10:23)
--- NOTE | 2024-02-12 10:24 | P.PN ---
Subjective Progress Note Date: 02/12/24 Principal diagnosis: Right lower lobe pneumonia likely aspiration pneumonia Sepsis associated with aspiration pneumonia Recurrent seizures Advanced multiple sclerosis Advanced gastroparesis Hypotension due to volume depletion as well as sepsis Acute kidney injury Generalized weakness and medical debility Electrolyte imbalance with hypokalemia and hyponatremia Sleep disordered breathing and sleep apnea noncompliant with the CPAP machine February 12, 2024, patient seen eval examined during rounds labs reviewed medications reviewed care plan discussed patient remains afebrile blood pressure soft however improved to 94/55, patient continued to be gently rehydrated, room air oxygen saturation stable 96%, chest x-ray performed today now right lower lobe pneumonia more clearly visible, CT scan of the chest however now manifest bilateral basal pneumonia likely aspiration related, some pneumonia may appear to be present in the right middle lobe as well, left-sided nephrolithiasis of 1.1 cm centrally located with stone identified. Spinal stimulator extending from left anterior chest wall with leads extending to left base of the neck, scattered pulmonary nodules likely infectious etiology about 3 to 4 mm in size. Patient remains on bronchodilators along with broad-spectrum antibiotics with Rocephin and Zithromax and Flagyl tolerating well speech evaluation however is pending 58-year-old male with prior history of gastroparesis along with advanced multiple sclerosis for almost 20 years patient presented emergency department for several week history of progressive cough shortness of breath not feeling well inability to hold anything in the stomach. Patient progressively become weaker with weight loss and emaciation and lately so weak unable to get up and move around decided to bring him into the hospital for further workup and evaluation patient has past medical history significant for seizure as well along with type 2 diabetes mellitus and hypertension hypertensive cardiovascular disease. On arrival he is tachypneic tachycardic with heart rate of 114 respiratory rate 20, oxygen saturation however is 96% on room air, blood pressure soft latest was 82/68 improved with fluid resuscitation labs significant for leukocytosis with WBC count 12.4, hemoglobin hematocrit 12/37 platelet count 112. Chemistry significant for hyponatremia sodium 134, potassium 3.5, BUN/creatinine 55/2.29, glucose 132 lactic acid 1.3 urine analysis small leukocyte esterase. LFTs fairly within normal limit, influenza A as well as influenza B both negative, RS V and COVID-19 also negative, chest x-ray significant for posterior infiltrate likely right lower lobe suspect may be related to aspiration likely chronic intermittent. Currently patient is on bronchodilator with DuoNeb 4 times a day, broad-spectrum antibiotic coverage with Rocephin and Zithromax and Zofran patient is being gently hydrated with normal saline as well with 75 cc an Patient has prior medical history significant for type 2 diabetes mellitus, chronic neuropathy, gastroparesis, chronic cervical and lumbar disc issues, spinal stimulator, left nephrolithiasis, sleep apnea and sleep disordered breathing, history of back surgery history of cardiac catheter angiogram Objective - Vital Signs Vital signs: Vital Signs Temp 97.6 F 02/12/24 07:00 Pulse 64 02/12/24 07:00 Resp 18 02/12/24 07:00 BP 94/55 02/12/24 07:00 Pulse Ox 96 02/12/24 08:24 FiO2 Intake & Output 02/11/24 02/12/24 02/12/24 18:59 06:59 18:59 Weight 95.254 kg 95.254 kg Other: # Voids 1 - Exam - Constitutional General appearance: average body habitus, cooperative, disheveled, mild distress - EENT Eyes: EOMI, PERRLA ENT: normal oropharynx - Neck Carotids: bilateral: upstroke normal Thyroid: bilateral: normal size - Respiratory Respiratory: bilateral: diminished - Cardiovascular Rhythm: regular Heart sounds: normal: S1, S2 - Gastrointestinal General gastrointestinal: normal bowel sounds, soft - Integumentary Integumentary: normal turgor - Neurologic Neurologic: CNII-XII intact - Musculoskeletal Musculoskeletal: gait normal, generalized weakness, strength equal bilaterally - Psychiatric Psychiatric: A&O x's 3, appropriate affect, intact judgment & insight - Labs CBC & Chem 7: 02/12/24 05:02 02/12/24 05:02 Labs: Abnormal Lab Results - Last 24 Hours (Table) 02/11/24 02/11/24 02/11/24 Range/Units 13:27 13:27 16:15 WBC 12.4 H (3.8-10.6) k/uL RBC 3.90 L (4.30-5.90) m/uL Hgb 12.6 L (13.0-17.5) gm/dL Hct 37.6 L (39.0-53.0) % MCV (80.0-97.0) FL Plt Count 112 L (150-450) k/uL Immature Gran # (0.00-0.04) X 10*3/uL Neutrophils # 10.6 H (1.3-7.7) k/uL Lymphocytes # 0.8 L (1.0-4.8) k/uL Sodium 134 L (137-145) mmol/L Chloride 95 L (98-107) mmol/L BUN 55 H (9-20) mg/dL Creatinine 2.29 H (0.66-1.25) mg/dL Est GFR (CKD-EPI) (>=60) BUN/Creatinine Ratio (12.00-20.00) Ratio Glucose 132 H (74-99) mg/dL Calcium (8.7-10.3) mg/dL Total Bilirubin (0.3-1.2) mg/dL ALT (10-49) U/L Total Protein (6.2-8.2) g/dL Albumin (3.8-4.9) g/dL Albumin/Globulin Ratio (1.60-3.17) Ratio Ur Leukocyte Esterase Small H (Negative) Urine Mucus Rare H (None) /hpf 02/12/24 02/12/24 Range/Units 05:02 05:02 WBC (3.8-10.6) k/uL RBC 2.94 L (4.30-5.90) m/uL Hgb 9.3 L (13.0-17.5) gm/dL Hct 29.0 L (39.0-53.0) % MCV 98.6 H (80.0-97.0) FL Plt Count 72 L (150-450) k/uL Immature Gran # 0.16 H (0.00-0.04) X 10*3/uL Neutrophils # (1.3-7.7) k/uL Lymphocytes # (1.0-4.8) k/uL Sodium (137-145) mmol/L Chloride (98-107) mmol/L BUN 46.5 H (9-20) mg/dL Creatinine 1.8 H (0.66-1.25) mg/dL Est GFR (CKD-EPI) 44 L (>=60) BUN/Creatinine Ratio 25.83 H (12.00-20.00) Ratio Glucose (74-99) mg/dL Calcium 8.5 L (8.7-10.3) mg/dL Total Bilirubin 0.2 L (0.3-1.2) mg/dL ALT <5 L (10-49) U/L Total Protein 5.3 L (6.2-8.2) g/dL Albumin 2.9 L (3.8-4.9) g/dL Albumin/Globulin Ratio 1.21 L (1.60-3.17) Ratio Ur Leukocyte Esterase (Negative) Urine Mucus (None) /hpf Assessment and Plan Assessment: Bilateral lower lobe pneumonia likely aspiration pneumonia, continue broad- spectrum antibiotics with Rocephin and Zithromax along with Flagyl as well Aspiration pneumonia likely due to gastroparesis history of seizures, aspiration precaution, awaiting speech consultation for swallow evaluation Advanced gastroparesis, patient may benefit from pro motility agent and GI consultation Hypotension and sepsis due to pneumonia, s/p fluid IV to resuscitate, continue to monitor and trend blood pressure close, blood pressure slowly improving Acute kidney injury, continue to monitor BUN/creatinine closely with rehydration Advanced multiple sclerosis Recurrent seizure patient to be resumed on antiseizure medications may need to start IV, consider neurology evaluation Generalized weakness and medical debility and cachexia due to severe degree of protein calorie malnourishment Electrolyte imbalance with hyponatremia and hypokalemia continue to monitor and trend electrolytes closely Sleep disordered breathing and sleep apnea patient has been noncompliant with CPAP machine likely will need retitration study, will arrange it as outpatient Plan: As above Time with Patient: Greater than 30
[2024-02-12] MEDS: LISINOPRIL-HCTZ 10-12.5 MG 1 EACH TAB PO SCH (10:27)
[2024-02-12] MEDS: OLANZapine 2.5 MG TAB PO SCH (12:31)
[2024-02-12] MEDS: diazePAM 2 MG TAB PO SCH (21:16)
[2024-02-12] MEDS: BUDESONIDE 0.5 MG/2 ML NEBU INHALATION SCH (22:17)
[2024-02-13] MEDS: Lacosamide IV (ages 17+ yrs) 200 MG/20 ML ML IVP STA (11:37)
--- NOTE | 2024-02-13 15:24 | P.CNNES ---
History of Present Illness Consult date: 02/13/24 Requesting physician: Bruce Khan Reason for Consult: seizure History of Present Illness: This is a 58-year-old gentleman with history of seizure on Depakote as well as has VNS, multiple sclerosis with residual left hemiparesis, gastroparesis, diabetes mellitus, hypertension who presents emergency department because of recurrent vomiting episode, generalized weakness, more frequent seizure. Patient's is at bedside who helps provide the history. She stated in the last 3 weeks she has been vomiting and generalized weak and has been having more frequent seizure. She stated that his seizures is that his body is becoming stiff but he is aware during this episode and episode lasted minutes to less than 2 minutes. Seems that he had a seizure earlier today in the morning and had to yesterday. Other than that he feels is doing better. Denies any further vomiting episode. He is on Depakote 750 mg 3 times daily. He is compliant taking the medication. He has VNS that was placed 9 years ago and his battery was recently changed. She stated that his settings for VNS was changed by his Neurology team over in [place]. He had an appointment this week for modification of setting of VNS but could not make it since he is hospitalized. I reviewed the lab workup he had during this hospital visit. Sodium is 134, creatinine is 2.29 and most recent 1 was 1.8. Initial serum glucose is 132 and most recently 179 Calcium is 9.6, magnesium is 2.1, AST ALT is within normal limits. Next Review of Systems As per HPI. Past Medical History Past Medical History: Chest Pain / Angina, Diabetes Mellitus, Eye Disorder, GERD/Reflux, Hyperlipidemia, Hypertension, Memory Impairment, Musculoskeletal Disorder, Neurologic Disorder, Osteoarthritis (OA), Pneumonia, Renal Disease, Seizure Disorder, Sleep Apnea/CPAP/BIPAP Additional Past Medical History / Comment(s): MS, several brain lesions, possible progressive brain injury, seizures daily-last seizure 02/11/24, IDDM type II, neuropathy L side body, gastroparesis, chronic cervical and lumbar back pain, spinal stimulator in place, L nephrolithiasis, anemia, insomnis, cpap, occasional bilateral leg edema-uses lasix prn, gastroparesis. History of Any Multi-Drug Resistant Organisms: None Reported Past Surgical History: Back Surgery, Heart Catheterization, Orthopedic Surgery, Tonsillectomy Additional Past Surgical History / Comment(s): VNS unit L chest, spinal stimulator, lumbar fusion/cage, Cspine fusion, L knee arthroscopy, bilateral cataract removals/lens implants Past Anesthesia/Blood Transfusion Reactions: No Reported Reaction Past Psychological History: Anxiety, Depression Additional Psychological History / Comment(s): , lives in the family home with his . Pt uses a cane or walker to ambulate. Spouse works from home and is his caregiver. can drive. Pt has increased depression/anxiety. Spouse states he has recently had several hospitalizations but d/t covid/establishing psychiatric care has been difficult as well as other f/u appts. Pt states depression is daily and increased but denies thoughts of suicide/plans of suicide. 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 No experience. No tobacco or alcohol use. No animal exposures. Smoking Status: Vaper Past Alcohol Use History: Occasional Additional Past Alcohol Use History / Comment(s): Pt chews a can of tobacco every other day. He started chewing in 1985. Past Drug Use History: Marijuana Additional Drug Use History / Comment(s): Pt vapes medical marijuana daily. - Past Family History Mother Family Medical History: COPD, Hypertension Father Family Medical History: Coronary Artery Disease (CAD), Myocardial Infarction (AR) Additional Family Medical History / Comment(s): cabg. Father had a Mi at the age of 55 yrs. Heart disease runs strong on father's side of family. Medications and Allergies Home Medications Medication Instructions Recorded Confirmed Type Divalproex ER [Depakote ER] 500 mg PO TID 11/04/20 02/11/24 History Metoclopramide [Reglan] 5 mg PO TID 01/11/22 02/11/24 History OLANZapine [ZyPREXA] 2.5 mg PO W/LUNCH 01/11/22 02/11/24 History OLANZapine [ZyPREXA] 5 mg PO BID 01/11/22 02/11/24 History Omeprazole 40 mg PO DAILY 01/11/22 02/11/24 History Sertraline [Zoloft] 100 mg PO DAILY 01/11/22 02/11/24 History Lisinopril-Hctz 10-12.5 mg 2 tab PO DAILY 02/11/24 02/11/24 History [Zestoretic 10-12.5] Ofatumumab [Kesimpta Pen] 20 mg SQ QMONTHLY 02/11/24 02/11/24 History Testosterone [Androgel 1.62%] 1 pump TRANSDERM Q48H 02/11/24 02/11/24 History diazePAM [Valium] 5 mg PO BID PRN 02/11/24 02/11/24 History Allergies Allergy/AdvReac Type Severity Reaction Status Date / Time Penicillins Allergy Severe Swelling Verified 02/11/24 16:07 prochlorperazine AdvReac Severe Hallucinati Verified 02/11/24 16:07 [From Compazine] ons prochlorperazine edisylate AdvReac Severe Hallucinati Verified 02/11/24 16:07 [From Compazine] ons prochlorperazine maleate AdvReac Severe Hallucinati Verified 02/11/24 16:07 [From Compazine] ons bupropion HCl AdvReac Intermediate Nausea & Verified 02/11/24 16:07 [From Wellbutrin] Vomiting gabapentin [From Neurontin] AdvReac Intermediate Nausea & Verified 02/11/24 16:07 Vomiting amantadine AdvReac Unknown Nausea & Verified 02/11/24 16:07 Vomiting Pork/Porcine Containing AdvReac Unknown Verified 02/11/24 16:07 Products [Pork] Physical Examination - Vital Signs Vital Signs: Vital Signs Temp Pulse Pulse Resp BP Pulse Ox FiO2 02/13/24 11:36 110/70 02/13/24 08:00 97.5 F L 64 16 92/60 98 02/13/24 07:46 70 02/13/24 07:35 66 95 02/13/24 01:56 67 18 96/55 94 L 02/13/24 00:59 21 02/12/24 22:17 21 02/12/24 19:19 98.1 F 74 18 93/60 98 02/12/24 18:10 69 109/65 98 02/12/24 16:16 95 02/12/24 15:52 74 02/12/24 15:43 72 Intake and Output 02/13/24 02/13/24 02/13/24 06:59 14:59 22:59 Other: # Voids 1 GENERAL: The patient is lying in bed and is not in acute distress. NEUROLOGICAL: Higher mental function: The patient is awake, alert, oriented to self, place and time. Patient is following commands. No aphasia and no neglect. Cranial nerves: The pupils are round, equal and reactive to light and accommodation. Visual mckeon are full to confrontation throughout. Extraocular movement is intact no nystagmus is noted. Facial sensation is normal to touch throughout. The facial strength is normal throughout. Hearing is normal bilaterally to hand rub. Tongue is midline and moved [id number] without any difficulty. No dysarthria is noted. Shoulder shrug is normal bilaterally. Motor: The strength is 5 over 5 throughout. Normal tone and bulk. Cerebellum: Normal finger to nose heel is ataxia over the left. Otherwise normal over the right. Sensation: Sensation is normal to touch throughout. Plantars are mute bilaterally. Results - Laboratory Findings CBC and BMP: 02/12/24 05:02 02/12/24 05:02 Abnormal Lab Findings: Abnormal Labs 02/11/24 02/11/24 02/11/24 13:27 13:27 16:15 WBC 12.4 H RBC 3.90 L Hgb 12.6 L Hct 37.6 L MCV Plt Count 112 L Immature Gran # Neutrophils # 10.6 H Lymphocytes # 0.8 L Sodium 134 L Chloride 95 L BUN 55 H Creatinine 2.29 H Est GFR (CKD-EPI) BUN/Creatinine Ratio Glucose 132 H Calcium Total Bilirubin ALT Total Protein Albumin Albumin/Globulin Ratio Ur Leukocyte Esterase Small H Urine Mucus Rare H 02/12/24 02/12/24 05:02 05:02 WBC RBC 2.94 L Hgb 9.3 L Hct 29.0 L MCV 98.6 H Plt Count 72 L Immature Gran # 0.16 H Neutrophils # Lymphocytes # Sodium Chloride BUN 46.5 H Creatinine 1.8 H Est GFR (CKD-EPI) 44 L BUN/Creatinine Ratio 25.83 H Glucose Calcium 8.5 L Total Bilirubin 0.2 L ALT <5 L Total Protein 5.3 L Albumin 2.9 L Albumin/Globulin Ratio 1.21 L Ur Leukocyte Esterase Urine Mucus Assessment and Plan Assessment: This is a 58-year-old gentleman with history of seizure, multiple sclerosis who presented emergency department because of recurrent vomiting over the past 3 weeks generalized weakness and more frequent seizure. Likely his breakthrough seizures are provoked due to his recurrent vomiting episodes Hyperemesis History of seizures is on Depakote and VNS History of multiple sclerosis with residual left hemiparesis Underlying history of memory impairment DM Neuropathy History of gastroparesis Underlying history of chronic and cervical lumbar back pain and patient has spinal stimulator. Plan: I ordered Depakote level. Patient is on Depakote 100 mg 1 tablet 3 times daily and that is resumed. According to the patient was never on any other antiseizure medication in the past according to her therefore I started the patient on Vimpat 50 mg twice daily. I will avoid Keppra because of the side effects in which the does not want to try the Keppra because of side effects of mood and irritability. EEG is not needed since patient has known history of seizure. He had multiple EEG's in our facility and I reviewed the report of last two and were normal in our facility. Patient does not want to pursue any brain or spinal imaging since she stated the patient had recent imaging in the last 2 weeks. Seizure precautions seizure pads Can DMV because of the seizure, to avoid driving for 6 months until seizure- free, avoid heights, avoid swimming assisted or using heavy machinery. Will defer the rest of the medical management to primary and other specialist Upon discharge, patient to follow-up with his neurology team over in [place]. He is to have his VNS settings modified. Plan discussed with the patient and his was at bedside Thank you for the consultation Time with Patient: Greater than 30
--- NOTE | 2024-02-13 17:19 | P.PN ---
Subjective Progress Note Date: 02/13/24 Principal diagnosis: Right lower lobe pneumonia likely aspiration pneumonia Sepsis associated with aspiration pneumonia Recurrent seizures Advanced multiple sclerosis Advanced gastroparesis Hypotension due to volume depletion as well as sepsis Acute kidney injury Generalized weakness and medical debility Electrolyte imbalance with hypokalemia and hyponatremia Sleep disordered breathing and sleep apnea noncompliant with the CPAP machine February 13, 2024, patient seen evaluate examined during rounds labs reviewed medications and care plan discussed, patient remains afebrile with stable hemodynamics blood pressure now more stabilized with IV fluids. Oxygen saturati on is 99% on room air, patient has been resumed on antiseizure medicine, valproic acid level is 76.3. Renal function slowly improving showing a downward trend of 46/1.8 down from 55/2.2, WBC count also improved to 4.7 from 12.4 yesterday, blood culture no growth so far, sputum culture came back positive for rare gram-positive cocci. In addition to bronchodilator patient remains on high-dose IV Rocephin along with Flagyl and doxycycline tolerating well, patient back on antiseizure medicines as well as antihypertensive agents and Valium tolerating well. Neurology has evaluated the patient suspected to have breakthrough seizure provoked because of recurrent vomiting, a transient less than a minute seizure-like activity was noted this morning spontaneously resolved February 12, 2024, patient seen eval examined during rounds labs reviewed medications reviewed care plan discussed patient remains afebrile blood pressure soft however improved to 94/55, patient continued to be gently rehydrated, room air oxygen saturation stable 96%, chest x-ray performed today now right lower lobe pneumonia more clearly visible, CT scan of the chest however now manifest bilateral basal pneumonia likely aspiration related, some pneumonia may appear to be present in the right middle lobe as well, left-sided nephrolithiasis of 1.1 cm centrally located with stone identified. Spinal stimulator extending from left anterior chest wall with leads extending to left base of the neck, scattered pulmonary nodules likely infectious etiology about 3 to 4 mm in size. Patient remains on bronchodilators along with broad-spectrum antibiotics with Rocephin and Zithromax and Flagyl tolerating well speech evaluation however is pending 58-year-old male with prior history of gastroparesis along with advanced mu ltiple sclerosis for almost 20 years patient presented emergency department for several week history of progressive cough shortness of breath not feeling well inability to hold anything in the stomach. Patient progressively become weaker with weight loss and emaciation and lately so weak unable to get up and move around decided to bring him into the hospital for further workup and evaluation patient has past medical history significant for seizure as well along with type 2 diabetes mellitus and hypertension hypertensive cardiovascular disease. On arrival he is tachypneic tachycardic with heart rate of 114 respiratory rate 20, oxygen saturation however is 96% on room air, blood pressure soft latest was 82/68 improved with fluid resuscitation labs significant for leukocytosis with WBC count 12.4, hemoglobin hematocrit 12/37 platelet count 112. Chemistry significant for hyponatremia sodium 134, potassium 3.5, BUN/creatinine 55/2.29, glucose 132 lactic acid 1.3 urine analysis small leukocyte esterase. LFTs fairly within normal limit, influenza A as well as influenza B both negative, RSV and COVID-19 also negative, chest x-ray significant for posterior infiltrate likely right lower lobe suspect may be related to aspiration likely chronic intermittent. Currently patient is on bronchodilator with DuoNeb 4 times a day, broad-spectrum antibiotic coverage with Rocephin and Zithromax and Zofran patient is being gently hydrated with normal saline as well with 75 cc an Patient has prior medical history significant for type 2 diabetes mellitus, chronic neuropathy, gastroparesis, chronic cervical and lumbar disc issues, spinal stimulator, left nephrolithiasis, sleep apnea and sleep disordered breathing, history of back surgery history of cardiac catheter angiogram Objective - Vital Signs Vital signs: Vital Signs Temp 97.5 F L 02/13/24 08:00 Pulse 82 02/13/24 14:00 Resp 16 02/13/24 08:00 BP 101/58 02/13/24 14:00 Pulse Ox 99 02/13/24 14:00 FiO2 21 02/13/24 00:59 Intake & Output 02/12/24 02/13/24 02/13/24 18:59 06:59 18:59 Other: # Voids 1 1 - Exam - Constitutional General appearance: average body habitus, cooperative, disheveled, mild distress - EENT Eyes: EOMI, PERRLA ENT: normal oropharynx - Neck Carotids: bilateral: upstroke normal Thyroid: bilateral: normal size - Respiratory Respiratory: bilateral: diminished - Cardiovascular Rhythm: regular Heart sounds: normal: S1, S2 - Gastrointestinal General gastrointestinal: normal bowel sounds, soft - Integumentary Integumentary: normal turgor - Neurologic Neurologic: CNII-XII intact - Musculoskeletal Musculoskeletal: gait normal, generalized weakness, strength equal bilaterally - Psychiatric Psychiatric: A&O x's 3, appropriate affect, intact judgment & insight - Labs CBC & Chem 7: 02/12/24 05:02 02/12/24 05:02 Labs: Microbiology - Last 24 Hours (Table) 02/12/24 15:48 Gram Stain - Preliminary Sputum Sputum Culture - Preliminary 02/11/24 15:49 Blood Culture - Preliminary Blood Assessment and Plan Assessment: Bilateral lower lobe pneumonia likely aspiration pneumonia, continue broad- spectrum antibiotics with Rocephin and Zithromax along with Flagyl as well Aspiration pneumonia likely due to gastroparesis history of seizures, aspiration precaution, Advanced gastroparesis, patient may benefit from pro motility agent and GI consultation Hypotension and sepsis due to pneumonia, s/p fluid IV to resuscitate, continue to monitor and trend blood pressure close, blood pressure slowly improving Acute kidney injury, continue to monitor BUN/creatinine closely with rehydration Advanced multiple sclerosis Recurrent seizure patient to be resumed on antiseizure medications, neurology following last active seizure was earlier this morning transient less than a mi nute, resolved spontaneously Generalized weakness and medical debility and cachexia due to severe degree of protein calorie malnourishment Electrolyte imbalance with hyponatremia and hypokalemia continue to monitor and trend electrolytes closely Sleep disordered breathing and sleep apnea patient has been noncompliant with CPAP machine likely will need retitration study, will arrange it as outpatient Plan: As above Time with Patient: Greater than 30
[2024-02-13] MEDS: LACOSAMIDE 50 MG TABLET PO SCH (20:46)
--- NOTE | 2024-02-13 23:58 | PN ---
PROGRESS NOTE SUBJECTIVE: A 58-year-old with right lower lobe pneumonia, aspiration pneumonia, sepsis, recurrent seizures, advanced MS, gastroparesis, hypertension, acute kidney injury, which is improved, GFR is up to 44. Generalized weakness, debility improved. Electrolytes, hypokalemia and hyponatremia improved. Sleep disorder, on CPAP, appears to be doing better, up ambulating better. PHYSICAL EXAMINATION: CARDIOVASCULAR: S1 and S2. LUNGS: Scattered wheeze and rhonchi. HEMATOLOGY: Negative Homans. PSYCH: Fair mood and affect. NEUROLOGIC: Alert and oriented x3. VITAL SIGNS: Stable, afebrile. LABORATORY DATA: White count 12.4, hemoglobin 12.6. Sodium 134, BUN 55, creatinine 2.29. ASSESSMENT: 1. He has bilateral pneumonia. 2. Seizures. 3. Metabolic encephalopathy. 4. History of bipolar. 5. Diabetes. PLAN: Continue current broad-spectrum antibiotics. Appears to be improving. Gastroparesis, hypertension, sepsis, acute kidney injury, advanced seizures, though improved. We will get Neurology to see seizure medicines. PROGNOSIS: Guarded. MMODL / IJN: [id number] /
--- NOTE | 2024-02-14 08:40 | PN ---
PROGRESS NOTE SUBJECTIVE: A 58-year-old white male with bilateral pneumonia on CAT scan, aspiration pneumonia. Continue his IV antibiotics. He feels better than yesterday. OBJECTIVE: VITAL SIGNS: Temperature 97.5, pulse 64, respiratory rate 16 to 18, blood pressure 92/60 to 110/70, O2 98% on room air. CARDIOVASCULAR: S1, S2. HEMATOLOGY: Negative Homans. Hemoglobin is down to 9.3 from 12.6 BUN is 46, creatinine 1.8, albumin is low. ASSESSMENT: Bilateral pneumonia, seizures, which are worsening, most likely secondary to hypoxia and metabolic encephalopathy, dehydration. Seizure consult will be done and home medications have been restarted. Valium p.r.n. for seizures and anxiety. Please see further orders. Monitor for his low hemoglobin. MMODL / IJN: [id number] /
[2024-02-14 09:23] LABS: ALT 5 U/L (10-49); AST 16 U/L (14-35); Albumin 2.7 g/dL (3.8-4.9); Albumin/Globulin Ratio 1.29 Ratio (1.60-3.17); Alkaline Phosphatase 50 U/L (41-126); BUN/Creat Ratio 13.82 Ratio (12.00-20.00); Blood Urea Nitrogen 15.2 mg/dL (9.0-27.0); Calcium 8.2 mg/dL (8.7-10.3); Carbon Dioxide 24.4 mmol/L (21.6-31.8); Chloride 110 mmol/L (96-109); Globulin 2.1 g/dL (1.6-3.3); Glucose 81 mg/dL (70-110); Potassium 3.9 mmol/L (3.5-5.5); Sodium 143 mmol/L (135-145); Total Bilirubin 0.2 mg/dL (0.3-1.2); Total Protein 4.8 g/dL (6.2-8.2)
[2024-02-14 11:44] LABS: Basophils # (A) 0.02 X 10*3/uL (0.00-0.10); Basophils % (A) 0.7 %; Eosinophils # (A) 0.11 X 10*3/uL (0.04-0.35); Eosinophils % (A) 3.8 %; HCT 26.2 % (39.6-50.0); HGB 8.2 g/dL (13.0-17.0); Immature Platelet Fraction 3.2 % (1.1-6.1); Lymphocytes # (A) 0.68 X 10*3/uL (0.90-5.00); Lymphocytes % (A) 23.4 %; MCH 32.4 pg (27.0-32.0); MCHC 31.3 g/dL (32.0-37.0); MCV 103.6 FL (80.0-97.0); Mean Platelet Volume 10.9 FL (9.5-12.2); Monocytes # (A) 0.54 X 10*3/uL (0.20-1.00); Monocytes % (A) 18.6 %; NRBC Per 100 WBC 0 X 10*3/uL (0.00-0.01); Neutrophils # (A) 1.45 X 10*3/uL (1.80-7.70); Neutrophils % (A) 49.7 %; Platelet Count 74 X 10*3/uL (140-440); RBC 2.53 X 10*6/uL (4.40-5.60); RDW 13.7 % (11.5-14.5); WBC 2.91 X 10*3/uL (4.50-10.00)
--- NOTE | 2024-02-14 13:00 | P.PN ---
Subjective Progress Note Date: 02/14/24 Principal diagnosis: Right lower lobe pneumonia likely aspiration pneumonia Sepsis associated with aspiration pneumonia Recurrent seizures Advanced multiple sclerosis Advanced gastroparesis Hypotension due to volume depletion as well as sepsis Acute kidney injury Generalized weakness and medical debility Electrolyte imbalance with hypokalemia and hyponatremia Sleep disordered breathing and sleep apnea noncompliant with the CPAP machine February 14, 2024 patient seen eval examined, patient has been on room air now 96%, hemodynamic status stable blood pressure improved now, denies any chest pain, weakness fatigue slightly improved, of note that patient had a small t ransient seizure earlier this morning resolved spontaneously, neurology has been following antiseizure meds adjusted. Sputum culture came back positive for Pseudomonas, culture results are pending patient remains on Rocephin along with Flagyl and being continued on bronchodilator February 13, 2024, patient seen evaluate examined during rounds labs reviewed medications and care plan discussed, patient remains afebrile with stable hemodynamics blood pressure now more stabilized with IV fluids. Oxygen saturation is 99% on room air, patient has been resumed on antiseizure medicine, valproic acid level is 76.3. Renal function slowly improving showing a downward trend of 46/1.8 down from 55/2.2, WBC count also improved to 4.7 from 12.4 yesterday, blood culture no growth so far, sputum culture came back positive for rare gram-positive cocci. In addition to bronchodilator patient remains on high-dose IV Rocephin along with Flagyl and doxycycline tolerating well, patient back on antiseizure medicines as well as antihypertensive agents and Valium tolerating well. Neurology has evaluated the patient suspected to have breakthrough seizure provoked because of recurrent vomiting, a transient less than a minute seizure-like activity was noted this morning spontaneously resolved February 12, 2024, patient seen eval examined during rounds labs reviewed medications reviewed care plan discussed patient remains afebrile blood pressure soft however improved to 94/55, patient continued to be gently rehydrated, room air oxygen saturation stable 96%, chest x-ray performed today now right lower lobe pneumonia more clearly visible, CT scan of the chest however now manifest bilateral basal pneumonia likely aspiration related, some pneumonia may appear to be present in the right middle lobe as well, left-sided nephrolithiasis of 1.1 cm centrally located with stone identified. Spinal stimulator extending from left anterior chest wall with leads extending to left base of the neck, scattered pulmonary nodules likely infectious etiology about 3 to 4 mm in size. Patient remains on bronchodilators along with broad-spectrum antibiotics with Rocephin and Zithromax and Flagyl tolerating well speech evaluation however is pending 58-year-old male with prior history of gastroparesis along with advanced multiple sclerosis for almost 20 years patient presented emergency department for several week history of progressive cough shortness of breath not feeling well inability to hold anything in the stomach. Patient progressively become weaker with weight loss and emaciation and lately so weak unable to get up and move around decided to bring him into the hospital for further workup and evaluation patient has past medical history significant for seizure as well along with type 2 diabetes mellitus and hypertension hypertensive cardiovascular disease. On arrival he is tachypneic tachycardic with heart rate of 114 respiratory rate 20, oxygen saturation however is 96% on room air, blood pressure soft latest was 82/68 improved with fluid resuscitation labs significant for leukocytosis with WBC count 12.4, hemoglobin hematocrit 12/37 platelet count 112. Chemistry significant for hyponatremia sodium 134, potassium 3.5, BUN/creatinine 55/2.29, glucose 132 lactic acid 1.3 urine analysis small leukocyte esterase. LFTs fairly within normal limit, influenza A as well as influenza B both negative, RSV and COVID-19 also negative, chest x-ray significant for posterior infiltrate likely right lower lobe suspect may be related to aspiration likely chronic intermittent. Currently patient is on bronchodilator with DuoNeb 4 times a day, broad-spectrum antibiotic coverage with Rocephin and Zithromax and Zofran patient is being gently hydrated with normal saline as well with 75 cc an Patient has prior medical history significant for type 2 diabetes mellitus, chronic neuropathy, gastroparesis, chronic cervical and lumbar disc issues, spinal stimulator, left nephrolithiasis, sleep apnea and sleep disordered breathing, history of back surgery history of cardiac catheter angiogram Objective - Vital Signs Vital signs: Vital Signs Temp 97.7 F 02/14/24 07:36 Pulse 60 02/14/24 12:19 Resp 19 02/14/24 07:36 BP 113/76 02/14/24 07:36 Pulse Ox 96 02/14/24 07:36 FiO2 21 02/13/24 00:59 Intake & Output 02/13/24 02/14/24 02/14/24 18:59 06:59 18:59 Intake Total 441 720 Balance 441 720 Intake: Oral 441 720 Other: # Voids 3 2 - Exam - Constitutional General appearance: average body habitus, cooperative, disheveled, mild distress - EENT Eyes: EOMI, PERRLA ENT: normal oropharynx - Neck Carotids: bilateral: upstroke normal Thyroid: bilateral: normal size - Respiratory Respiratory: bilateral: diminished - Cardiovascular Rhythm: regular Heart sounds: normal: S1, S2 - Gastrointestinal General gastrointestinal: normal bowel sounds, soft - Integumentary Integumentary: normal turgor - Neurologic Neurologic: CNII-XII intact - Musculoskeletal Musculoskeletal: gait normal, generalized weakness, strength equal bilaterally - Psychiatric Psychiatric: A&O x's 3, appropriate affect, intact judgment & insight - Labs CBC & Chem 7: 02/14/24 03:47 02/14/24 03:47 Labs: Abnormal Lab Results - Last 24 Hours (Table) 02/14/24 02/14/24 Range/Units 03:47 03:47 WBC 2.91 L (4.50-10.00) X 10*3/uL RBC 2.53 L (4.40-5.60) X 10*6/uL Hgb 8.2 L (13.0-17.0) g/dL Hct 26.2 L (39.6-50.0) % MCV 103.6 H (80.0-97.0) FL MCH 32.4 H (27.0-32.0) pg MCHC 31.3 L (32.0-37.0) g/dL Plt Count 74 L (140-440) X 10*3/uL Immature Gran # 0.11 H (0.00-0.04) X 10*3/uL Neutrophils # 1.45 L (1.80-7.70) X 10*3/uL Lymphocytes # 0.68 L (0.90-5.00) X 10*3/uL Chloride 110 H (96-109) mmol/L Calcium 8.2 L (8.7-10.3) mg/dL Total Bilirubin 0.2 L (0.3-1.2) mg/dL ALT 5 L (10-49) U/L Total Protein 4.8 L (6.2-8.2) g/dL Albumin 2.7 L (3.8-4.9) g/dL Albumin/Globulin Ratio 1.29 L (1.60-3.17) Ratio Microbiology - Last 24 Hours (Table) 02/12/24 15:48 Gram Stain - Preliminary Sputum Sputum Culture - Preliminary Pseudomonas aeruginosa 02/11/24 15:49 Blood Culture - Preliminary Blood Assessment and Plan Assessment: Bilateral lower lobe pneumonia likely gram-negative Pseudomonas aspiration pneumonia, continue broad-spectrum antibiotics with Rocephin and Zithromax along with Flagyl as well, follow-up on sensitivities antibiotics might need adjustment Aspiration pneumonia likely due to gastroparesis history of seizures, aspiration precaution, Advanced gastroparesis, patient may benefit from pro motility agent and GI con sultation Hypotension and sepsis due to pneumonia, s/p fluid IV to resuscitate, continue to monitor and trend blood pressure close, blood pressure slowly improving Acute kidney injury, continue to monitor BUN/creatinine closely with rehydration Advanced multiple sclerosis Recurrent seizure patient to be resumed on antiseizure medications, neurology following last active seizure was earlier this morning transient less than a minute, resolved spontaneously Generalized weakness and medical debility and cachexia due to severe degree of protein calorie malnourishment Electrolyte imbalance with hyponatremia and hypokalemia continue to monitor and trend electrolytes closely Sleep disordered breathing and sleep apnea patient has been noncompliant with CPAP machine likely will need retitration study, will arrange it as outpatient Plan: As above Time with Patient: Greater than 30
--- NOTE | 2024-02-15 00:13 | PN ---
PROGRESS NOTE OBJECTIVE: VITAL SIGNS: Temperature is 98, blood pressure 121/71, O2 of 95% on room air, pulse 87. CARDIOVASCULAR: S1, S2. LUNGS: Transmitted upper sounds. GI: Soft. HEMATOLOGY: Negative Homans. The patient has pancytopenia with platelets of 74, up from 72. Hemoglobin is 8.2, down from 9.3. White count is 2.91. Valproic level is 76.3. He has been placed on some new medications for his seizures. He has electrolyte imbalance, hyponatremia, hyperkalemia, sleep apnea, recurrent seizures, small effusion today going on its own, acute kidney injury, aspiration pneumonia, advanced gastroparesis, bilateral lower lobe pneumonia, diabetes mellitus. Continue current antibiotics, breathing support. Watch for seizures, pancytopenia possibly due to infection. We will see what Hematology has to say. MMFATEMEHL / ADAMA: [id number] /
[2024-02-15 07:45] VITALS: RESP 18
[2024-02-15 11:41] LABS: ALT 7 U/L (4-49); AST 21 U/L (17-59); African American GFR (CKD) >90 (>60 ml/min/1.73 sqM); Albumin 2.6 g/dL (3.5-5.0); Albumin/Globulin Ratio 0.9; Alkaline Phosphatase 55 U/L (38-126); Anion Gap 7 mmol/L; Blood Urea Nitrogen 5 mg/dL (9-20); Calcium 8.2 mg/dL (8.4-10.2); Carbon Dioxide 25 mmol/L (22-30); Chloride 108 mmol/L (98-107); Globulin 2.9 g/dL; Glucose 114 mg/dL (74-99); Non-African American GFR(CKD) 88 (>60 ml/min/1.73 sqM); Potassium 3.2 mmol/L (3.5-5.1); Sodium 140 mmol/L (137-145); Total Bilirubin 0.3 mg/dL (0.2-1.3); Total Protein 5.5 g/dL (6.3-8.2)
[2024-02-15 11:45] LABS: Basophils % (A) 0 %; Eosinophils # (A) 0.1 k/uL (0-0.7); Eosinophils % (A) 4 %; HCT 26.2 % (39.0-53.0); Lymphocytes # (A) 0.4 k/uL (1.0-4.8); Lymphocytes % (A) 13 %; MCH 32.3 pg (25.0-35.0); MCHC 32.2 g/dL (31.0-37.0); MCV 100.1 fL (80.0-100.0); Macrocytosis Slight; Mean Platelet Volume 8.7; Monocytes # (A) 0.3 k/uL (0-1.0); Monocytes % (A) 10 %; Neutrophils # (A) 2.1 k/uL (1.3-7.7); Neutrophils % (A) 73 %; RBC 2.62 m/uL (4.30-5.90); RDW 13.8 % (11.5-15.5); WBC 2.9 k/uL (3.8-10.6)
[2024-02-15 11:51] LABS: HGB 8.4 gm/dL (13.0-17.5)
[2024-02-15 12:19] LABS: Platelet Count 89 k/uL (150-450)
--- NOTE | 2024-02-15 13:13 | P.PN ---
Subjective Progress Note Date: 02/15/24 I am following up with the patient and patient states that he has not had any further seizures for more than 24 hours. He feels he is doing better. He is tolerating Vimpat well. Objective - Vital Signs Vital signs: Vital Signs Temp 97.7 F 02/15/24 07:44 Pulse 76 02/15/24 09:10 Resp 18 02/15/24 07:44 BP 119/76 02/15/24 07:44 Pulse Ox 98 02/15/24 09:03 FiO2 21 02/15/24 09:03 Intake & Output 02/14/24 02/15/24 02/15/24 18:59 06:59 18:59 Other: Voiding Method Toilet # Voids 3 2 - Exam GENERAL: The patient is lying in bed and is not in acute distress. NEUROLOGICAL: Higher mental function: The patient is awake, alert, oriented to self, place and time. Patient is following commands. No aphasia and no neglect. Cranial nerves: The pupils are round, equal and reactive to light and accommodation. Visual mckeon are full to confrontation throughout. Extraocular movement is intact no nystagmus is noted. Facial sensation is normal to touch throughout. The facial strength is normal throughout. Hearing is normal bilaterally to hand rub. Tongue is midline and moved [id number] without any difficulty. No dysarthria is noted. Shoulder shrug is normal bilaterally. Motor: The strength is 5 over 5 throughout. Normal tone and bulk. Cerebellum: Normal finger to nose heel is ataxia over the left. Otherwise normal over the right. Sensation: Sensation is normal to touch throughout. Plantars are mute bilaterally. - Labs CBC & Chem 7: 02/15/24 10:51 02/15/24 10:51 Labs: Abnormal Lab Results - Last 24 Hours (Table) 02/15/24 02/15/24 Range/Units 10:51 10:51 WBC 2.9 L (3.8-10.6) k/uL RBC 2.62 L (4.30-5.90) m/uL Hgb 8.4 L D (13.0-17.5) gm/dL Hct 26.2 L (39.0-53.0) % MCV 100.1 H (80.0-100.0) fL Plt Count 89 L (150-450) k/uL Lymphocytes # 0.4 L (1.0-4.8) k/uL Potassium 3.2 L (3.5-5.1) mmol/L Chloride 108 H (98-107) mmol/L BUN 5 L (9-20) mg/dL Glucose 114 H (74-99) mg/dL Calcium 8.2 L (8.4-10.2) mg/dL Total Protein 5.5 L (6.3-8.2) g/dL Albumin 2.6 L (3.5-5.0) g/dL Microbiology - Last 24 Hours (Table) 02/12/24 15:48 Gram Stain - Final Sputum Sputum Culture - Final Pseudomonas aeruginosa 02/11/24 15:49 Blood Culture - Preliminary Blood Assessment and Plan Assessment: This is a 58-year-old gentleman with history of seizure, multiple sclerosis who presented emergency department because of recurrent vomiting over the past 3 weeks generalized weakness and more frequent seizure. Likely his breakthrough seizures are provoked due to his recurrent vomiting episodes---no further seizures for >24 hours Hyperemesis History of seizures is on Depakote and VNS History of multiple sclerosis with residual left hemiparesis Underlying history of memory impairment DM Neuropathy History of gastroparesis Underlying history of chronic and cervical lumbar back pain and patient has spinal stimulator. Plan: Depakote level: 76.3 Patient is on Depakote 100 mg 1 tablet 3 times daily and that is resumed. According to the patient was never on any other antiseizure medication in the past according to her therefore I started the patient on Vimpat 50 mg twice daily on 02/13/2024 and is tolerating medication well. I will avoid Keppra because of the side effects in which the does not want to try the Keppra because of side effects of mood and irritability. EEG is not needed since patient has known history of seizure. He had multiple EEG's in our facility and I reviewed the report of last two and were normal in our facility. Patient does not want to pursue any brain or spinal imaging since she stated the patient had recent imaging in the last 2 weeks. Seizure precautions seizure pads Per DMV because of the seizure, to avoid driving for 6 months until seizure- free, avoid heights, avoid swimming assisted or using heavy machinery. Will defer the rest of the medical management to primary and other specialist Upon discharge, patient to follow-up with his neurology team over in [place]. He is to have his VNS settings modified. Plan discussed with the patient. There is no further neurological work-up. Will sign off. Please reconsult if needed. Time with Patient: Less than 30
--- NOTE | 2024-02-15 14:51 | P.PN ---
Subjective Progress Note Date: 02/15/24 Principal diagnosis: Right lower lobe pneumonia likely aspiration pneumonia Sepsis associated with aspiration pneumonia Recurrent seizures Advanced multiple sclerosis Advanced gastroparesis Hypotension due to volume depletion as well as sepsis Acute kidney injury Generalized weakness and medical debility Electrolyte imbalance with hypokalemia and hyponatremia Sleep disordered breathing and sleep apnea noncompliant with the CPAP machine February 15, 2024, patient seen eval examined during rounds labs reviewed medications reviewed care plan discussed, No new seizure activity has been seen today, patient is awake and alert denies any chest pain, labs reviewed potassium slightly low 3.2, on replacement protocol, CBC reviewed WBC count is 2.9 with hemoglobin hematocrit 8.4/26, hematology oncology evaluated the patient for medial sentinel lymphadenopathy as well as splenomegaly workup is in process. It appears that patient has poorly controlled sleep disordered breathing and sleep apnea with relatively new machine of less than 3 years patient likely will need retitration study. Sputum positive for Pseudomonas, sensitive to multiple antibiotics, including Rocephin, intermediate to Levaquin February 14, 2024 patient seen eval examined, patient has been on room air now 96%, hemodynamic status stable blood pressure improved now, denies any chest pain, weakness fatigue slightly improved, of note that patient had a small transient seizure earlier this morning resolved spontaneously, neurology has been following antiseizure meds adjusted. Sputum culture came back positive for Pseudomonas, culture results are pending patient remains on Rocephin along with Flagyl and being continued on bronchodilator February 13, 2024, patient seen evaluate examined during rounds labs reviewed medications and care plan discussed, patient remains afebrile with stable hemodynamics blood pressure now more stabilized with IV fluids. Oxygen saturati on is 99% on room air, patient has been resumed on antiseizure medicine, valproic acid level is 76.3. Renal function slowly improving showing a downward trend of 46/1.8 down from 55/2.2, WBC count also improved to 4.7 from 12.4 yesterday, blood culture no growth so far, sputum culture came back positive for rare gram-positive cocci. In addition to bronchodilator patient remains on high-dose IV Rocephin along with Flagyl and doxycycline tolerating well, patient back on antiseizure medicines as well as antihypertensive agents and Valium tolerating well. Neurology has evaluated the patient suspected to have breakthrough seizure provoked because of recurrent vomiting, a transient less than a minute seizure-like activity was noted this morning spontaneously resolved February 12, 2024, patient seen eval examined during rounds labs reviewed medications reviewed care plan discussed patient remains afebrile blood pressure soft however improved to 94/55, patient continued to be gently rehydrated, room air oxygen saturation stable 96%, chest x-ray performed today now right lower lobe pneumonia more clearly visible, CT scan of the chest however now manifest bilateral basal pneumonia likely aspiration related, some pneumonia may appear to be present in the right middle lobe as well, left-sided nephrolithiasis of 1.1 cm centrally located with stone identified. Spinal stimulator extending from left anterior chest wall with leads extending to left base of the neck, scattered pulmonary nodules likely infectious etiology about 3 to 4 mm in size. Patient remains on bronchodilators along with broad-spectrum antibiotics with Rocephin and Zithromax and Flagyl tolerating well speech evaluation however is pending 58-year-old male with prior history of gastroparesis along with advanced mu ltiple sclerosis for almost 20 years patient presented emergency department for several week history of progressive cough shortness of breath not feeling well inability to hold anything in the stomach. Patient progressively become weaker with weight loss and emaciation and lately so weak unable to get up and move around decided to bring him into the hospital for further workup and evaluation patient has past medical history significant for seizure as well along with type 2 diabetes mellitus and hypertension hypertensive cardiovascular disease. On arrival he is tachypneic tachycardic with heart rate of 114 respiratory rate 20, oxygen saturation however is 96% on room air, blood pressure soft latest was 82/68 improved with fluid resuscitation labs significant for leukocytosis with WBC count 12.4, hemoglobin hematocrit 12/37 platelet count 112. Chemistry significant for hyponatremia sodium 134, potassium 3.5, BUN/creatinine 55/2.29, glucose 132 lactic acid 1.3 urine analysis small leukocyte esterase. LFTs fairly within normal limit, influenza A as well as influenza B both negative, RSV and COVID-19 also negative, chest x-ray significant for posterior infiltrate likely right lower lobe suspect may be related to aspiration likely chronic intermittent. Currently patient is on bronchodilator with DuoNeb 4 times a day, broad-spectrum antibiotic coverage with Rocephin and Zithromax and Zofran patient is being gently hydrated with normal saline as well with 75 cc an Patient has prior medical history significant for type 2 diabetes mellitus, chronic neuropathy, gastroparesis, chronic cervical and lumbar disc issues, spinal stimulator, left nephrolithiasis, sleep apnea and sleep disordered breathing, history of back surgery history of cardiac catheter angiogram Objective - Vital Signs Vital signs: Vital Signs Temp 97.7 F 02/15/24 07:44 Pulse 76 02/15/24 09:10 Resp 18 02/15/24 07:44 BP 119/76 02/15/24 07:44 Pulse Ox 98 02/15/24 09:03 FiO2 21 02/15/24 09:03 Intake & Output 02/14/24 02/15/24 02/15/24 18:59 06:59 18:59 Other: Voiding Method Toilet # Voids 3 2 - Exam - Constitutional General appearance: average body habitus, cooperative, disheveled, mild distress - EENT Eyes: EOMI, PERRLA ENT: normal oropharynx - Neck Carotids: bilateral: upstroke normal Thyroid: bilateral: normal size - Respiratory Respiratory: bilateral: diminished - Cardiovascular Rhythm: regular Heart sounds: normal: S1, S2 - Gastrointestinal General gastrointestinal: normal bowel sounds, soft - Integumentary Integumentary: normal turgor - Neurologic Neurologic: CNII-XII intact - Musculoskeletal Musculoskeletal: gait normal, generalized weakness, strength equal bilaterally - Psychiatric Psychiatric: A&O x's 3, appropriate affect, intact judgment & insight - Labs CBC & Chem 7: 02/15/24 10:51 02/15/24 10:51 Labs: Abnormal Lab Results - Last 24 Hours (Table) 02/15/24 02/15/24 Range/Units 10:51 10:51 WBC 2.9 L (3.8-10.6) k/uL RBC 2.62 L (4.30-5.90) m/uL Hgb 8.4 L D (13.0-17.5) gm/dL Hct 26.2 L (39.0-53.0) % MCV 100.1 H (80.0-100.0) fL Plt Count 89 L (150-450) k/uL Lymphocytes # 0.4 L (1.0-4.8) k/uL Potassium 3.2 L (3.5-5.1) mmol/L Chloride 108 H (98-107) mmol/L BUN 5 L (9-20) mg/dL Glucose 114 H (74-99) mg/dL Calcium 8.2 L (8.4-10.2) mg/dL Total Protein 5.5 L (6.3-8.2) g/dL Albumin 2.6 L (3.5-5.0) g/dL Microbiology - Last 24 Hours (Table) 02/12/24 15:48 Gram Stain - Final Sputum Sputum Culture - Final Pseudomonas aeruginosa 02/11/24 15:49 Blood Culture - Preliminary Blood Assessment and Plan Assessment: Bilateral lower lobe pneumonia likely gram-negative Pseudomonas aspiration pneumonia, continue broad-spectrum antibiotics with Rocephin and Zithromax along with Flagyl as well, follow-up on sensitivities antibiotics might need adjustment Aspiration pneumonia likely due to gastroparesis history of seizures, aspiration precaution, Advanced gastroparesis, patient may benefit from pro motility agent and GI consultation Hypotension and sepsis due to pneumonia, s/p fluid IV to resuscitate, continue to monitor and trend blood pressure close, blood pressure slowly improving Acute kidney injury, continue to monitor BUN/creatinine closely with rehydration Advanced multiple sclerosis Recurrent seizure patient to be resumed on antiseizure medications, neurology following last active seizure was earlier this morning transient less than a minute, resolved spontaneously Generalized weakness and medical debility and cachexia due to severe degree of protein calorie malnourishment Electrolyte imbalance with hyponatremia and hypokalemia continue to monitor and trend electrolytes closely Sleep disordered breathing and sleep apnea patient has been noncompliant with CPAP machine likely will need retitration study, will arrange it as outpatient Plan: As above Time with Patient: Greater than 30
[2024-02-15 15:48] LABS: T4, Free (Free Thyroxine) 0.67 ng/dL (0.78-2.19)
[2024-02-15 16:15] VITALS: BP 143/86; PULSE 81; TEMP 97.3
[2024-02-15 18:58] LABS: Iron 118 UG/DL (65-175)
[2024-02-15 18:59] LABS: % Iron Saturation 41.11 (15.00-50.00); Rheumatoid Factor, Qnt <15 IU/mL (0-15); Total Iron Binding Capacity 287 UG/DL (228-460)
[2024-02-15] MEDS ORDERED: CIPROFLOXACIN HCL 500 MG TAB PO SCH (21:00)
--- NOTE | 2024-02-16 02:04 | PN ---
PROGRESS NOTE A 58-year-old white male was found to have Pseudomonas in his sputum. Waiting for Dr. Fang's recommendations prior to discharge. Otherwise, I will send him home on some oral antibiotics. Levaquin apparently is not sensitive to Pseudomonas. We will have to stop that and possibly use Cipro instead versus PICC line. Await Dr. Fang's test. Prognosis guarded. Ambulate as tolerated. MMODL / IJN: [id number] /
[2024-02-16] MEDS ORDERED: LEVOFLOXACIN 750 MG TAB PO SCH (09:00)
--- NOTE | 2024-02-16 12:42 | P.CONS ---
History of Present Illness - Reason for Consult Consult date: 02/15/24 pancytopenia Requesting physician: Bruce Khan - Chief Complaint n/v, weakness - History of Present Illness Patient is 58 year old male with a significant history of multiple sclerosis gastroporesis. He has seen Dr. Otero in the past for anemia and was last seen in 2020. He had been noted to have intermittent mild anemia. The patient had been on Ocrevus for his multiple sclerosis and Depakote for his seizure disorder. He also has a neural implant for his seizures. He denied any obvious bleeding, or history of blood related problems in the past. He had extensive anemia w/u which was negative. His iron sat was in the 15% range, but ferritin was 93. He had multiple labs ordered by Neurology, some pertaining to hypercoag state. These were negative ( He was double hetrozygous positive for MTHFR mutations, but MTHFR mutations are not considered hypercoagulable states any longer). It was felt he likely had a mild anemia due to medication effect and was placed on observation. Hemoglobin dropped into the 9 range, at his visit in 08/29. Anemia workup was negative other than slightly low iron saturation with ferritin in the 60 range. He received IV iron in 08/29 and in 03/2020. At his last clinic f/u in 09/2020 hemoglobin further improved to 11.6. The slow improvement in hemoglobin after iron stores being replete indicates a hypoproliferative condition rather than bleeding, which is consistent with the clinical impression is that his mild intermittent anemia is likely due to marrow suppression from medication effect. Patient presented to the emergency room with complaints of persisting nausea vomiting and increased weakness. Admission chest x-ray showed focal patchy posterior basilar opacity. CT chest was subsequently obtained showing posterior bibasilar airspace infiltrate, consider for infectious or aspiration pneumonitis. Concurrent tree-in-bud infiltrate extends up to the right midlung. Patient was started on IV antibiotics for concern for aspiration pneumonia. Consult was placed for noted pancytopenia. Labs reviewed, WBC 2.91, hemoglobin 8.2, platelets 74,000. Differential showing mild decrease in neutrophils and lymphocytes and immature granulocytes, otherwise no significant abnormalities. Bilirubin 0.2, LFTs WNL. Kidney function improving since admit, today creatinine 1.1, GFR 79. Upon trending labs anemia has been persisting since 2018, typically in the 10-11 range but has been in the 8 range. Mild thrombocytopenia first noted in 2017. As stated above patient has had extensive workup by Dr. Dick during clinic follow-up. Workup was negative other than noted mild iron deficiency at which time he received parenteral iron. At today's visit patient states denies any episodes of acute bleeding, blood in stool or melena. Last colonoscopy was approximately 2 to 3 years ago which was negative for acute bleeding. He is unsure when his last EGD was but states he believes it was greater than 5 years ago. He continues on depakote. Review of Systems 10 point ROS is negative except as stated in the HPI Past Medical History Past Medical History: Chest Pain / Angina, Diabetes Mellitus, Eye Disorder, GERD/Reflux, Hyperlipidemia, Hypertension, Memory Impairment, Musculoskeletal Disorder, Neurologic Disorder, Osteoarthritis (OA), Pneumonia, Renal Disease, Seizure Disorder, Sleep Apnea/CPAP/BIPAP Additional Past Medical History / Comment(s): MS, several brain lesions, possible progressive brain injury, seizures daily-last seizure 02/11/24, IDDM type II, neuropathy L side body, gastroparesis, chronic cervical and lumbar back pain, spinal stimulator in place, L nephrolithiasis, anemia, insomnis, cpap, occasional bilateral leg edema-uses lasix prn, gastroparesis. History of Any Multi-Drug Resistant Organisms: None Reported Past Surgical History: Back Surgery, Heart Catheterization, Orthopedic Surgery, Tonsillectomy Additional Past Surgical History / Comment(s): VNS unit L chest, spinal stimulator, lumbar fusion/cage, Cspine fusion, L knee arthroscopy, bilateral cataract removals/lens implants Past Anesthesia/Blood Transfusion Reactions: No Reported Reaction Past Psychological History: Anxiety, Depression Additional Psychological History / Comment(s): , lives in the family home with his . Pt uses a cane or walker to ambulate. Spouse works from home and is his caregiver. can drive. Pt has increased depression/anxiety. Spouse states he has recently had several hospitalizations but d/t covid/establishing psychiatric care has been difficult as well as other f/u appts. Pt states depression is daily and increased but denies thoughts of suicide/plans of suicide. 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 No experience. No tobacco or alcohol use. No animal exposures. Smoking Status: Vaper Past Alcohol Use History: Occasional Additional Past Alcohol Use History / Comment(s): Pt chews a can of tobacco every other day. He started chewing in 1985. Past Drug Use History: Marijuana Additional Drug Use History / Comment(s): Pt vapes medical marijuana daily. - Past Family History Mother Family Medical History: COPD, Hypertension Father Family Medical History: Coronary Artery Disease (CAD), Myocardial Infarction (MA) Additional Family Medical History / Comment(s): cabg. Father had a Mi at the age of 55 yrs. Heart disease runs strong on father's side of family. Medications and Allergies Home Medications Medication Instructions Recorded Confirmed Type Divalproex ER [Depakote ER] 500 mg PO TID 11/04/20 02/11/24 History Metoclopramide [Reglan] 5 mg PO TID 01/11/22 02/11/24 History OLANZapine [ZyPREXA] 2.5 mg PO W/LUNCH 01/11/22 02/11/24 History OLANZapine [ZyPREXA] 5 mg PO BID 01/11/22 02/11/24 History Omeprazole 40 mg PO DAILY 01/11/22 02/11/24 History Sertraline [Zoloft] 100 mg PO DAILY 01/11/22 02/11/24 History Lisinopril-Hctz 10-12.5 mg 2 tab PO DAILY 02/11/24 02/11/24 History [Zestoretic 10-12.5] Ofatumumab [Kesimpta Pen] 20 mg SQ QMONTHLY 02/11/24 02/11/24 History Testosterone [Androgel 1.62%] 1 pump TRANSDERM Q48H 02/11/24 02/11/24 History Budesonide [Pulmicort] 0.5 mg INHALATION RT-BID 30 Days 02/15/24 Rx #60 ml Ciprofloxacin HCl [Cipro] 500 mg PO BID 14 Days #28 tab 02/15/24 Rx Ipratropium-Albuterol Nebulize 3 ml INHALATION RT-QID 30 Days 02/15/24 Rx [Duoneb 0.5 mg-3 mg/3 ml Soln] #120 each Lacosamide [Vimpat] 50 mg PO BID 30 Days #60 tab 02/15/24 Rx Levofloxacin [Levaquin] 750 mg PO DAILY 5 Days #5 tab 02/15/24 Rx Allergies Allergy/AdvReac Type Severity Reaction Status Date / Time Penicillins Allergy Severe Swelling Verified 02/11/24 16:07 prochlorperazine AdvReac Severe Hallucinati Verified 02/11/24 16:07 [From Compazine] ons prochlorperazine edisylate AdvReac Severe Hallucinati Verified 02/11/24 16:07 [From Compazine] ons prochlorperazine maleate AdvReac Severe Hallucinati Verified 02/11/24 16:07 [From Compazine] ons bupropion HCl AdvReac Intermediate Nausea & Verified 02/11/24 16:07 [From Wellbutrin] Vomiting gabapentin [From Neurontin] AdvReac Intermediate Nausea & Verified 02/11/24 16:07 Vomiting amantadine AdvReac Unknown Nausea & Verified 02/11/24 16:07 Vomiting Pork/Porcine Containing AdvReac Unknown Verified 02/11/24 16:07 Products [Pork] Physical Exam Vitals: Vital Signs Temp Pulse Pulse Pulse Resp BP BP 02/15/24 09:10 76 02/15/24 09:03 74 02/15/24 07:44 97.7 F 71 18 119/76 02/15/24 01:04 98.3 F 87 17 02/14/24 21:35 72 02/14/24 21:24 70 02/14/24 19:05 98.3 F 72 17 119/73 118/63 02/14/24 15:55 68 02/14/24 15:47 62 02/14/24 13:33 98 F 87 18 02/14/24 12:19 60 02/14/24 12:09 64 BP BP Pulse Ox FiO2 02/15/24 09:10 02/15/24 09:03 98 21 02/15/24 07:44 98 02/15/24 01:04 129/69 97 02/14/24 21:35 02/14/24 21:24 02/14/24 19:05 110/62 98 02/14/24 15:55 02/14/24 15:47 02/14/24 13:33 121/71 95 02/14/24 12:19 02/14/24 12:09 Intake and Output 02/14/24 02/15/24 02/15/24 22:59 06:59 14:59 Other: Voiding Method Toilet # Voids 3 2 - Constitutional General appearance: average body habitus, no acute distress - EENT Eyes: anicteric sclerae, EOMI ENT: hearing grossly normal - Respiratory Respiratory: bilateral: CTA - Cardiovascular Rhythm: regular - Gastrointestinal General gastrointestinal: soft, no tenderness - Integumentary Integumentary: no cyanotic, no jaundiced - Psychiatric Psychiatric: A&O x's 3 Results CBC & Chem 7: 02/15/24 10:51 02/15/24 10:51 Labs: Abnormal Lab Results - Last 24 Hours (Table) 02/14/24 Range/Units 03:47 WBC 2.91 L (4.50-10.00) X 10*3/uL RBC 2.53 L (4.40-5.60) X 10*6/uL Hgb 8.2 L (13.0-17.0) g/dL Hct 26.2 L (39.6-50.0) % MCV 103.6 H (80.0-97.0) FL MCH 32.4 H (27.0-32.0) pg MCHC 31.3 L (32.0-37.0) g/dL Plt Count 74 L (140-440) X 10*3/uL Immature Gran # 0.11 H (0.00-0.04) X 10*3/uL Neutrophils # 1.45 L (1.80-7.70) X 10*3/uL Lymphocytes # 0.68 L (0.90-5.00) X 10*3/uL Microbiology - Last 24 Hours (Table) 02/11/24 15:49 Blood Culture - Preliminary Blood 02/12/24 15:48 Gram Stain - Preliminary Sputum Sputum Culture - Preliminary Pseudomonas aeruginosa Chest x-ray: report reviewed CT scan - chest: report reviewed Assessment and Plan (1) Pancytopenia Status: Acute Code(s): D61.818 - OTHER PANCYTOPENIA SNOMED Code(s): 993926202 (2) Acute kidney injury Status: Acute Code(s): N17.9 - ACUTE KIDNEY FAILURE, UNSPECIFIED SNOMED Code(s): 41269345 (3) Dehydration Status: Acute Code(s): E86.0 - DEHYDRATION SNOMED Code(s): 87853072 (4) Multiple sclerosis Status: Acute Code(s): G35 - MULTIPLE SCLEROSIS SNOMED Code(s): 79146077 (5) Pneumonia Status: Acute Code(s): J18.9 - PNEUMONIA, UNSPECIFIED ORGANISM SNOMED Code(s): 634983518 (6) Weakness Status: Acute Code(s): R53.1 - WEAKNESS SNOMED Code(s): 71083654 Plan: Pneumonia: Patient presented to the emergency room with complaints of persisting nausea vomiting and increased weakness. - Admission chest x-ray showed focal patchy posterior basilar opacity. CT chest was subsequently obtained showing posterior bibasilar airspace infiltrate, consider for infectious or aspiration pneumonitis. Concurrent tree-in-bud infiltrate extends up to the right midlung. -Patient was started on IV antibiotics for concern for aspiration pneumonia -Reports significant improvement in symptoms since admission -Defer management to pulm and admitting teams Pancytopenia: -Patient has f/u with Dr. Otero in the past for anemia. Full history as dictated in the HPI -It was felt his anemia at that time was r/t medication affect from MS and seizure medications -CBC showing, WBC 2.91, hemoglobin 8.2, platelets 74,000. Differential showing mild decrease in neutrophils and lymphocytes and immature granulocytes, otherwise no significant abnormalities. Bilirubin 0.2, LFTs WNL. Kidney function improving since admit, today creatinine 1.1, GFR 79. -Upon trending labs anemia has been persisting since 2018, typically in the 10- 11 range but has been in the 8 range. Mild thrombocytopenia first noted in . As stated above patient has had extensive workup by Dr. Otero during clinic follow-up. Workup was negative other than noted mild iron deficiency at which time he received parenteral iron. -Denies any episodes of acute bleeding, blood in stool or melena. Last colonoscopy was approximately 2 to 3 years ago which was negative for acute bleeding. Has had EGD in the past but states he believes it was greater than 5 years ago. -He continues on depakote. Noted pancytopenia likely reactive to acute condition, as well as medication effect from Depakote. Would expect counts to improve as patient recovers -Will obtain paraproteinemia workup, nutritional studies, autoimmune markers, and thyroid studies -Plan for discharge today, will schedule clinic f/u to review workup and provide additional recommendations pending workup Discussed POC with pt and spouse and they were agreeable to the same Doctor attests: I performed a history and physical examination of this patient, developed impression and plan of care. Discussed with dictator. I agree with dictators note, documented as a scribe.
[2024-02-18 09:58] LABS: Protein, Total 5.9 g/dL (6.2-8.2)
[2024-02-19 05:13] LABS: Methylmalonic Acid 0.16 umol/L (<0.40)
[2024-02-20 07:23] LABS: Gamma Globulin 1.16 g/dL (0.70-1.50)
== END 2024-02-15 16:25 | disposition home or self-care (01) | DRG 871 ==
LOC: EC 12:43 → 6NMEDSUR 15:39 → OBSVTOIN 02-12 08:52 → 6NMEDSUR 02-13 23:37 → 4SSUR 02-14 07:00
PROVIDERS: ADMIT Family Medicine; ATTEND Family Medicine
PROC: 5A09357 Assistance with Respiratory Ventilation, Less than 24 Consecutive Hours, Continuous Positive Airway Pressure (ICD-10-PCS; principal; 2024-02-12)
DX: A41.52 Sepsis due to Pseudomonas (principal); D61.1 Drug-induced aplastic anemia; J15.1 Pneumonia due to Pseudomonas; E43 Unspecified severe protein-calorie malnutrition; G93.41 Metabolic encephalopathy; J69.0 Pneumonitis due to inhalation of food and vomit; D61.818 Other pancytopenia; R64 Cachexia; G81.94 Hemiplegia, unspecified affecting left nondominant side; N17.9 Acute kidney failure, unspecified; E87.1 Hypo-osmolality and hyponatremia; J44.0 Chronic obstructive pulmonary disease with (acute) lower respiratory infection; G35 Multiple sclerosis; E11.43 Type 2 diabetes mellitus with diabetic autonomic (poly)neuropathy; E11.40 Type 2 diabetes mellitus with diabetic neuropathy, unspecified; G40.909 Epilepsy, unspecified, not intractable, without status epilepticus; I11.9 Hypertensive heart disease without heart failure; F31.9 Bipolar disorder, unspecified; K31.84 Gastroparesis; E86.0 Dehydration; F41.9 Anxiety disorder, unspecified; G47.33 Obstructive sleep apnea (adult) (pediatric); I95.89 Other hypotension; E87.6 Hypokalemia; Z68.28 Body mass index [BMI] 28.0-28.9, adult; R09.02 Hypoxemia; N20.0 Calculus of kidney; G47.00 Insomnia, unspecified; K21.9 Gastro-esophageal reflux disease without esophagitis; E61.1 Iron deficiency; E78.5 Hyperlipidemia, unspecified; M19.90 Unspecified osteoarthritis, unspecified site; F17.290 Nicotine dependence, other tobacco product, uncomplicated; Z91.199 Patient's noncompliance with other medical treatment and regimen due to unspecified reason; Z79.84 Long term (current) use of oral hypoglycemic drugs; Z79.899 Other long term (current) drug therapy; Z96.82 Presence of neurostimulator; Z98.1 Arthrodesis status; Z88.0 Allergy status to penicillin; Z88.8 Allergy status to other drugs, medicaments and biological substances
CPT/HCPCS: 36415; 71046; 71250; 80053; 80164; 81001; 82607; 82728; 82747; 82784; 83036; 83540; 83550; 83605; 83735; 83883; 83921; 84165; 84439; 84443; 85025; 86038; 86334; 86431; 87040; 87070; 87077; 87186; 87205; 87449; 87636; 93005; 94640; 94660; 94760; 96361; 96365; 96366; 96375; 99285

== ENCOUNTER 2024-05-11 20:23 | Inpatient (IN) | payer BC, MEDICARE ==
[2024-05-11 20:28] VITALS: TEMP 97.4
[2024-05-11] MEDS ORDERED: VANCOMYCIN IV PER PHARMACY 1 EACH MISC MISCELLANE PRN (20:41)
--- NOTE | 2024-05-11 20:48 | XR ---
EXAMINATION TYPE: XR chest 1V portable DATE OF EXAM: 05/11/2024 8:44 PM COMPARISON: Previous chest radiograph 02/12/2024. CLINICAL INDICATION: Male, 58 years old with history of sob; [facility] TECHNIQUE: XR chest 1V portable Frontal view of the chest. FINDINGS: Cardiomegaly. Left chest wall stimulator device. Spinal stimulator device noted. Patchy right lung opacities. No sizable pleural effusion. No pneumothorax. No acute osseous and amount. IMPRESSION: Patchy right lung opacities suspicious for multifocal pneumonia. [facility], , 05/11/2024 8:46 PM
[2024-05-11] MEDS: IPRATROPIUM-ALBUTEROL 3 ML NEB INHALATION STA (20:51)
--- NOTE | 2024-05-11 20:53 | ED ---
SOB HPI - General Chief Complaint: Shortness of Breath Stated Complaint: PERFECTO Time Seen by Provider: 05/11/24 20:33 Source: patient, family, RN notes reviewed, old records reviewed Mode of arrival: EMS Limitations: no limitations - History of Present Illness Initial Comments: This is a 58-year-old male to the ER for evaluation patient presents today for evaluation regards to severe shortness of breath. Patient has history of COPD history of difficulty breathing and recent diagnosis by the of influenza with exposure to the patient himself of influenza. Patient has shortness of breath and cough for the last few days and states his breathing was significantly out of order today. He did have a seizure today as well, patient's main complaints have been shortness of breath. Patient has long history of longstanding MS MD Complaint: shortness of breath, chest pain, "asthma attack", anxiety -: days(s) Severity: severe Severity scale (1-10): 10 Consistency: constant Improves With: nothing Worsens With: nothing Known History Of: COPD, congestive heart failure Context: recent URI, anxiety, recent illness Associated Symptoms: pain with inspiration, cough, sputum production Treatments Prior to Arrival: oxygen - Related Data Home Medications Medication Instructions Recorded Confirmed Divalproex ER [Depakote ER] 500 mg PO TID 11/04/20 02/11/24 Metoclopramide [Reglan] 5 mg PO TID 01/11/22 02/11/24 OLANZapine [ZyPREXA] 2.5 mg PO W/LUNCH 01/11/22 02/11/24 OLANZapine [ZyPREXA] 5 mg PO BID 01/11/22 02/11/24 Omeprazole 40 mg PO DAILY 01/11/22 02/11/24 Sertraline [Zoloft] 100 mg PO DAILY 01/11/22 02/11/24 Lisinopril-Hctz 10-12.5 mg 2 tab PO DAILY 02/11/24 02/11/24 [Zestoretic 10-12.5] Ofatumumab [Kesimpta Pen] 20 mg SQ QMONTHLY 02/11/24 02/11/24 Testosterone [Androgel 1.62%] 1 pump TRANSDERM Q48H 02/11/24 02/11/24 Previous Rx's Medication Instructions Recorded Budesonide [Pulmicort] 0.5 mg INHALATION RT-BID 30 Days 02/15/24 #60 ml Ciprofloxacin HCl [Cipro] 500 mg PO BID 14 Days #28 tab 02/15/24 Ipratropium-Albuterol Nebulize 3 ml INHALATION RT-QID 30 Days 02/15/24 [Duoneb 0.5 mg-3 mg/3 ml Soln] #120 each Lacosamide [Vimpat] 50 mg PO BID 30 Days #60 tab 02/15/24 Levofloxacin [Levaquin] 750 mg PO DAILY 5 Days #5 tab 02/15/24 Allergies Allergy/AdvReac Type Severity Reaction Status Date / Time Penicillins Allergy Severe Swelling Verified 05/11/24 20:27 prochlorperazine AdvReac Severe Hallucinati Verified 05/11/24 20:27 [From Compazine] ons prochlorperazine edisylate AdvReac Severe Hallucinati Verified 05/11/24 20:27 [From Compazine] ons prochlorperazine maleate AdvReac Severe Hallucinati Verified 05/11/24 20:27 [From Compazine] ons bupropion HCl AdvReac Intermediate Nausea & Verified 05/11/24 20:27 [From Wellbutrin] Vomiting gabapentin [From Neurontin] AdvReac Intermediate Nausea & Verified 05/11/24 20:27 Vomiting amantadine AdvReac Unknown Nausea & Verified 05/11/24 20:27 Vomiting Pork/Porcine Containing AdvReac Unknown Verified 05/11/24 20:27 Products [Pork] Review of Systems ROS Statement: Those systems with pertinent positive or pertinent negative responses have been documented in the HPI. ROS Other: All systems not noted in ROS Statement are negative. Past Medical History Past Medical History: Chest Pain / Angina, Diabetes Mellitus, Eye Disorder, GERD/Reflux, Hyperlipidemia, Hypertension, Memory Impairment, Musculoskeletal Disorder, Neurologic Disorder, Osteoarthritis (OA), Pneumonia, Renal Disease, Seizure Disorder, Sleep Apnea/CPAP/BIPAP Additional Past Medical History / Comment(s): MS, several brain lesions, possible progressive brain injury, seizures daily-last seizure 02/11/24, IDDM type II, neuropathy L side body, gastroparesis, chronic cervical and lumbar back pain, spinal stimulator in place, L nephrolithiasis, anemia, insomnis, cpap, occasional bilateral leg edema-uses lasix prn, gastroparesis. History of Any Multi-Drug Resistant Organisms: None Reported Past Surgical History: Back Surgery, Heart Catheterization, Orthopedic Surgery, Tonsillectomy Additional Past Surgical History / Comment(s): VNS unit L chest, spinal stimulator, lumbar fusion/cage, Cspine fusion, L knee arthroscopy, bilateral cataract removals/lens implants Past Anesthesia/Blood Transfusion Reactions: No Reported Reaction Past Psychological History: Anxiety, Depression Smoking Status: Vaper Past Alcohol Use History: Occasional Past Drug Use History: Marijuana - Past Family History Mother Family Medical History: COPD, Hypertension Father Family Medical History: Coronary Artery Disease (CAD), Myocardial Infarction (NC) Additional Family Medical History / Comment(s): cabg. Father had a Mi at the age of 55 yrs. Heart disease runs strong on father's side of family. General Exam Limitations: no limitations, altered mental status General appearance: alert, anxious, lethargic, in distress Head exam: Present: atraumatic, normocephalic, normal inspection Eye exam: Present: normal appearance, PERRL, EOMI. Absent: scleral icterus, conjunctival injection, periorbital swelling ENT exam: Present: normal exam, mucous membranes moist Neck exam: Present: normal inspection. Absent: tenderness, meningismus, lympha denopathy Respiratory exam: Present: respiratory distress, wheezes, accessory muscle use, decreased breath sounds, prolonged expiratory. Absent: rales, rhonchi, stridor Cardiovascular Exam: Present: normal rhythm, tachycardia, normal heart sounds. Absent: systolic murmur, diastolic murmur, rubs, gallop, clicks GI/Abdominal exam: Present: soft, normal bowel sounds. Absent: distended, tenderness, guarding, rebound, rigid Extremities exam: Present: normal inspection, full ROM, normal capillary refill. Absent: tenderness, pedal edema, joint swelling, calf tenderness Back exam: Present: normal inspection Neurological exam: Present: alert, oriented X3, CN II-XII intact Psychiatric exam: Present: normal affect, normal mood Skin exam: Present: warm, dry, intact, normal color. Absent: rash Course Vital Signs 05/11/24 05/11/24 05/11/24 20:25 20:33 20:53 Temperature 97.4 F L Pulse Rate 133 H 120 H Respiratory 44 H 28 H Rate Blood Pressure 96/56 O2 Sat by Pulse 77 L Oximetry Fraction of 100 Inspired Oxygen (FIO2) 05/11/24 05/11/24 05/11/24 21:07 22:04 22:36 Temperature Pulse Rate 122 H 130 H 131 H Respiratory 45 H 47 H Rate Blood Pressure 114/88 107/46 O2 Sat by Pulse 88 L 78 L Oximetry Fraction of Inspired Oxygen (FIO2) - Reevaluation(s) Reevaluation #1: 05/11/24 22:59 Medical records reviewed Multiple prior recent hospital admissions This does not appear to be any symptoms related to his MS Multiple prior admissions for electrode abnormalities and dyspnea with COPD on BiPAP Reevaluation #2: 05/11/24 22:59 Patient symptoms initially improved after breathing treatment and BiPAP Patient symptoms continue to worsen here in the ER despite BiPAP treatment oxygen remains in the 80s Spoke with family the patient is in no code no intubate patient Patient given further supportive care suspect PE without improving oxygenation , Patient placed on heparin for suspected PE with uncorrectable hypoxia Patient given persistent continuous breathing treatments actually moving up in the upper 80s mid 80s Reevaluation #3: 05/11/24 23:00 Patient and family informed of results questions answered Reevaluation #4: Was pt. sent in by a medical professional or institution (, PA, BAND DIRECTOR, urgent care, hospital, or senior care...) When possible be specific @ -no Did you speak to anyone other than the patient for history (EMS, parent, family, police, friend...)? What history was obtained from this source @ -no Did you review nursing and triage notes (agree or disagree)? Why? @ -agree Are old charts reviewed (outside hosp., previous admission, EMS record, old EKG, old radiological studies, urgent care reports/EKG's, senior care records)? Report findings @ -yes Differential Diagnosis (chest pain, altered mental status, abdominal pain women, abdominal pain men, vaginal bleeding, weakness, fever, dyspnea, syncope, headache, dizziness, GI bleed, back pain, seizure, CVA, palpatations, mental health, musculoskeletal)? @ -prior EKG interpreted by me (3pts min.). @ -yes X-rays interpreted by me (1pt min.). @ -yes negative for acute disease CT interpreted by me (1pt min.). @ -no U/S interpreted by me (1pt. min.). @ -no What testing was considered but not performed or refused? (CT, X-rays, U/S, labs)? Why? @ -none What meds were considered but not given or refused? Why? @ -none Did you discuss the management of the patient with other professionals (professionals i.e. , PA, BAND DIRECTOR, lab, RT, psych nurse, psych social worker, sfdc architect, teacher, asset protection officer, supervisor case loading)? Give summary @ -no Was smoking cessation discussed for >3mins.? @ -no Was critical care preformed (if so, how long)? @ -no Were there social determinants of health that impacted care today? How? (Homelessness, low income, unemployed, alcoholism, drug addiction, transportation, low edu. Level, literacy, decrease access to med. care, retirement, rehab)? @ -none Was there de-escalation of care discussed even if they declined (Discuss DNR or withdrawal of care, Hospice)? DNR status @ -no What co-morbidities impacted this encounter? (DM, HTN, Smoking, COPD, CAD, Cancer, CVA, ARF, Chemo, Hep., AIDS, mental health diagnosis, sleep apnea, morbid obesity)? @ -none Was patient admitted / discharged? Hospital course, mention meds given and route, prescriptions, significant lab abnormalities, going to OR and other pertinent info. @ - Undiagnosed new problem with uncertain prognosis? @ -no Drug Therapy requiring intensive monitoring for toxicity (Heparin, Nitro, Insulin, Cardizem)? @ -no Were any procedures done? @ -no Diagnosis/symptom? @ - Acute, or Chronic, or Acute on Chronic? @ -Acute Uncomplicated (without systemic symptoms) or Complicated (systemic symptoms)? @ -Complicated Side effects of treatment? @ -no Exacerbation, Progression, or Severe Exacerbation? @ -exacerbation Poses a threat to life or bodily function? How? (Chest pain, USA, NC, pneumonia, PE, COPD, DKA, ARF, appy, cholecystitis, CVA, Diverticulitis, Homicidal, Suicidal, threat to staff... and all critical care pts) @ -yes Reevaluation #5: Differential Dyspnea: Coronary syndrome, arrhythmia, tamponade, asthma, COPD, pulmonary embolism, pneumonia, pneumothorax, pulmonary effusion, anaphylaxis, diabetic ketoacidosis, flailed chest, pulmonary contusion, diaphragmatic rupture, anemia, neuromuscular, this is not meant to be an all-inclusive list. Medical Decision Making - Medical Decision Making 58 male to ER for evaluation of shortness of breath. Patient has exposure to influenza positive for influenza here in the ER right-sided pneumonia right lower lobe pneumonia concern for MRSA with positive influenza, patient placed on antibiotics for pneumonia COPD with respiratory failure and hypoxia on BiPAP patient is a DO NOT INTUBATE DO NOT RESUSCITATE. Patient is given heparin dosing for possibility of PE with difficult to correct hypoxia - Lab Data Result diagrams: 05/11/24 20:45 05/11/24 20:45 Lab Results 05/11/24 05/11/24 05/11/24 Range/Units 20:45 20:45 20:45 WBC 1.1 L* (3.8-10.6) k/uL RBC 4.57 (4.30-5.90) m/uL Hgb 14.3 (13.0-17.5) gm/dL Hct 46.8 (39.0-53.0) % MCV 102.5 H (80.0-100.0) fL MCH 31.3 (25.0-35.0) pg MCHC 30.6 L (31.0-37.0) g/dL RDW 13.6 (11.5-15.5) % Plt Count 42 L (150-450) k/uL MPV 9.1 Neutrophils % (Manual) 4 % Band Neuts % (Manual) 62 % Lymphocytes % (Manual) 8 % Monocytes % (Manual) 18 % Metamyelocytes % 8 % Neutrophils # (Manual) 0.70 L (1.3-7.7) k/uL Lymphocytes # (Manual) 0.09 L (1.0-4.8) k/uL Monocytes # (Manual) 0.20 (0-1.0) k/uL Metamyelocytes # (Man) 0.09 H (0) k/uL Nucleated RBCs 0 (0-0) /100 WBC Manual Slide Review Performed Hypochromasia Moderate Macrocytosis Slight PT 13.8 H (10.0-12.5) sec INR 1.3 H (<1.2) APTT 33.0 H (22.0-30.0) sec D-Dimer 1.71 H (<0.60) mg/L FEU Sodium 141 (137-145) mmol/L Potassium 3.3 L (3.5-5.1) mmol/L Chloride 103 (98-107) mmol/L Carbon Dioxide 12 L (22-30) mmol/L Anion Gap 26 mmol/L BUN 31 H (9-20) mg/dL Creatinine 2.04 H (0.66-1.25) mg/dL Est GFR (CKD-EPI)AfAm 41 (>60 ml/min/1.73 sqM) Est GFR (CKD-EPI)NonAf 36 (>60 ml/min/1.73 sqM) Glucose 88 (74-99) mg/dL Plasma Lactic Acid Ermias (0.7-2.0) mmol/L Calcium 8.4 (8.4-10.2) mg/dL Magnesium 1.6 (1.6-2.3) mg/dL Total Bilirubin 0.8 (0.2-1.3) mg/dL AST 68 H (17-59) U/L ALT 28 (4-49) U/L Alkaline Phosphatase 67 (38-126) U/L Troponin I (0.000-0.034) ng/mL NT-Pro-B Natriuret Pep 23344 pg/mL Total Protein 6.1 L (6.3-8.2) g/dL Albumin 3.4 L (3.5-5.0) g/dL Influenza Type A (PCR) (Not Detectd) Influenza Type B (PCR) (Not Detectd) RSV (PCR) (Not Detectd) SARS-CoV-2 (PCR) (Not Detectd) 05/11/24 05/11/24 05/11/24 Range/Units 20:45 20:45 20:45 WBC (3.8-10.6) k/uL RBC (4.30-5.90) m/uL Hgb (13.0-17.5) gm/dL Hct (39.0-53.0) % MCV (80.0-100.0) fL MCH (25.0-35.0) pg MCHC (31.0-37.0) g/dL RDW (11.5-15.5) % Plt Count (150-450) k/uL MPV Neutrophils % (Manual) % Band Neuts % (Manual) % Lymphocytes % (Manual) % Monocytes % (Manual) % Metamyelocytes % % Neutrophils # (Manual) (1.3-7.7) k/uL Lymphocytes # (Manual) (1.0-4.8) k/uL Monocytes # (Manual) (0-1.0) k/uL Metamyelocytes # (Man) (0) k/uL Nucleated RBCs (0-0) /100 WBC Manual Slide Review Hypochromasia Macrocytosis PT (10.0-12.5) sec INR (<1.2) APTT (22.0-30.0) sec D-Dimer (<0.60) mg/L FEU Sodium (137-145) mmol/L Potassium (3.5-5.1) mmol/L Chloride (98-107) mmol/L Carbon Dioxide (22-30) mmol/L Anion Gap mmol/L BUN (9-20) mg/dL Creatinine (0.66-1.25) mg/dL Est GFR (CKD-EPI)AfAm (>60 ml/min/1.73 sqM) Est GFR (CKD-EPI)NonAf (>60 ml/min/1.73 sqM) Glucose (74-99) mg/dL Plasma Lactic Acid Ermias 11.8 H* (0.7-2.0) mmol/L Calcium (8.4-10.2) mg/dL Magnesium (1.6-2.3) mg/dL Total Bilirubin (0.2-1.3) mg/dL AST (17-59) U/L ALT (4-49) U/L Alkaline Phosphatase (38-126) U/L Troponin I 0.022 (0.000-0.034) ng/mL NT-Pro-B Natriuret Pep pg/mL Total Protein (6.3-8.2) g/dL Albumin (3.5-5.0) g/dL Influenza Type A (PCR) Detected A (Not Detectd) Influenza Type B (PCR) Not Detected (Not Detectd) RSV (PCR) Not Detected (Not Detectd) SARS-CoV-2 (PCR) Not Detected (Not Detectd) - EKG Data -: EKG Interpreted by Me (EKG is sinus tachycardia 115 WA 127 QRS 93 QTc 393) - Radiology Data Radiology results: report reviewed (Chest x-ray shows right-sided pneumonia. RLL pneumonia), image reviewed Critical Care Time Critical Care Time: Yes Total Critical Care Time: 95 Disposition Clinical Impression: Acute respiratory failure, Respiratory distress determined by examination, Multiple sclerosis, Community acquired pneumonia, Seizure disorder, Altered mental status, Acute anxiety, Pneumonia, Weakness, Influenza A, Lactic acidosis, Dehydration Disposition: ADMITTED IP TO THIS [facility] Condition: Critical Is patient prescribed a controlled substance at d/c from ED?: No Referrals: Bruce Khan MD [Primary Care Provider] - 1-2 days Time of Disposition: 23:00
[2024-05-11] MEDS: OSELTAMIVIR 75 MG CAP PO STA (21:07)
[2024-05-11] MEDS: SODIUM CHLORIDE 0.9% 1,000 ML IV STA ×2 (21:08→23:12)
[2024-05-11] MEDS: ACETAMINOPHEN IV (For NPO) 1,000 MG in EMPTY BAG 1 BAG IVPB STA (21:12)
[2024-05-11] MEDS: IBUPROFEN IV 800 MG in SODIUM CHLORIDE 0.9% 250 ML IV ONE (21:16)
[2024-05-11 21:27] LABS: HCT 46.8 % (39.0-53.0); HGB 14.3 gm/dL (13.0-17.5); Hypochromasia Moderate; MCH 31.3 pg (25.0-35.0); MCHC 30.6 g/dL (31.0-37.0); MCV 102.5 fL (80.0-100.0); Macrocytosis Slight; Mean Platelet Volume 9.1; RBC 4.57 m/uL (4.30-5.90); RDW 13.6 % (11.5-15.5)
[2024-05-11 21:32] LABS: WBC 1.1 k/uL (3.8-10.6)
[2024-05-11 21:35] LABS: INR 1.3 (<1.2); Prothrombin Time 13.8 sec (10.0-12.5)
[2024-05-11 21:50] LABS: Neutrophils % (M) 4 %
[2024-05-11 21:51] LABS: Band Neutrophils % 62 %; Lymphocytes # (M) 0.09 k/uL (1.0-4.8); Metamyelocytes # (M) 0.09 k/uL (0); Metamyelocytes % 8 %; Nucleated Red Blood Cells 0 /100 WBC (0-0); Total Cells Counted 100
[2024-05-11 21:54] LABS: Platelet Count 42 k/uL (150-450)
[2024-05-11] MEDS: MORPHINE SULFATE 2 MG/ML SYRINGE IVP STA (21:57)
[2024-05-11] MEDS: methylPREDNISolone SOD SUCCIN 500 MG in SODIUM CHLORIDE 0.9% 100 ML IVPB ONE (22:00)
[2024-05-11] MEDS: LEVOFLOXACIN 750MG-D5W PMX 750 MG in DEXTROSE/WATER 1 150ML.BAG IVPB STA (22:02)
[2024-05-11 22:10] LABS: AST 68 U/L (17-59); African American GFR (CKD) 41 (>60 ml/min/1.73 sqM); Albumin 3.4 g/dL (3.5-5.0); Alkaline Phosphatase 67 U/L (38-126); Anion Gap 26 mmol/L; Blood Urea Nitrogen 31 mg/dL (9-20); Calcium 8.4 mg/dL (8.4-10.2); Carbon Dioxide 12 mmol/L (22-30); Chloride 103 mmol/L (98-107); Glucose 88 mg/dL (74-99); Magnesium 1.6 mg/dL (1.6-2.3); Non-African American GFR(CKD) 36 (>60 ml/min/1.73 sqM); Potassium 3.3 mmol/L (3.5-5.1); Sodium 141 mmol/L (137-145); Total Bilirubin 0.8 mg/dL (0.2-1.3); Total Protein 6.1 g/dL (6.3-8.2)
[2024-05-11 22:15] LABS: NT-Pro-B-Type Natriuretic Pept 11700 pg/mL
[2024-05-11 22:20] LABS: ALT 28 U/L (4-49)
[2024-05-11 22:32] LABS: Influenza A Detected (Not Detectd); Influenza B Not Detected (Not Detectd); RSV Not Detected (Not Detectd)
[2024-05-11] MEDS: LORazepam 2 MG/ML INJ IV STA (22:34)
[2024-05-11] MEDS ORDERED: HEPARIN SODIUM 1,000 UN/ML (10ML VL) IV PRN (22:56)
[2024-05-11] MEDS ORDERED: Potassium Replacement Protocol 1 EACH MISC MISCELLANE PRN ×2 (22:57→23:18)
[2024-05-11] MEDS: VANCOMYCIN 1,750 MG in SODIUM CHLORIDE 0.9% 500 ML 500 ML IVPB ONE (23:04)
[2024-05-11] MEDS: SODIUM CHLORIDE 0.9% 500 ML 500 ML IV STA (23:12)
[2024-05-11] MEDS: HEPARIN SODIUM 1,000 UN/ML (10ML VL) IV ONE (23:13)
[2024-05-11] MEDS ORDERED: NALOXONE 0.4 MG/ML 1 ML VIAL IV PRN (23:18)
[2024-05-11] MEDS: HEPARIN SOD,PORK IN 0.45% NACL 25,000 UNIT in 0.45% NACL 1 250ML.BAG IV SCH (23:18)
[2024-05-11] MEDS ORDERED: IPRATROPIUM-ALBUTEROL 3 ML NEB INHALATION PRN (23:18)
[2024-05-11] MEDS: POTASSIUM CHLORIDE 20 MEQ in WATER FOR INJECTION 1 100ML.BAG IVPB STA (23:19)
[2024-05-11] MEDS: DEXAMETHASONE SOD PHOSPHATE 10 MG/ML 1 ML VIAL IVP STA (23:20)
[2024-05-11] MEDS: ALBUTEROL NEBULIZED 2.5 MG/3 ML INHALATION STA (23:29)
[2024-05-11] MEDS: IPRATROPIUM 0.5 MG/2.5 ML NEBU INHALATION STA (23:29)
[2024-05-12] MEDS: ONDANSETRON 4 MG/2 ML VIAL IVP PRN (00:11)
[2024-05-12] MEDS: LORazepam 2 MG/ML INJ IV PRN (02:14)
[2024-05-12] MEDS: SODIUM CHLORIDE 0.9% 1,000 ML IV SCH (02:19)
[2024-05-12] MEDS: DEXTROSE 5%-0.45% NACL 1,000 ML IV SCH (02:20)
[2024-05-12] MEDS: DEXTROSE 5% IN WATER 1,000 ML with SODIUM BICARB (1 MEQ/ML) 150 ML IV SCH (03:37)
[2024-05-12 03:48] VITALS: BP 97/79; PULSE 120; RESP 43
[2024-05-12] MEDS: MORPHINE SULFATE 2 MG/ML SYRINGE IV PRN (04:06)
[2024-05-12] MEDS: SCOPOLAMINE 1 MG/72 HR PATCH TRANSDERM SCH (04:21)
[2024-05-12] MEDS: MORPHINE SULFATE 100 MG in SODIUM CHLORIDE 0.9% 90 ML IV SCH (04:21)
--- NOTE | 2024-05-12 04:36 | P.CNPUL ---
History of Present Illness Consult date: 05/12/24 Requesting physician: Sam Saenz Reason for consult: other (Pneumonia sepsis) Chief complaint: Respiratory distress History of present illness: Patient is a 58-year-old male with past medical history significant for advanced MS, seizure disorder, hypertension, COPD, among other things. Patient presented emergency department last night in a state of extremis. He was in severe respi ratory distress, placed on BiPAP for noninvasive respiratory support. Patient's is at the bedside among other family members, apparently she had been sick with influenza infection approximately 1 week ago. Patient started to develop symptoms of fever, cough last Sunday. He has not been eating or drinking well. Developed severe and progressively worsening shortness of breath over the last 48 hours. Patient finally brought in by EMS last night. He was in a state of respiratory distress, initially placed on BiPAP with settings 14/9 and FiO2 100%. Continues to be in respiratory distress, with a rate of 40 to 50 breaths/min. Also, he is hypoxic SpO2 is reading 76%. Blood pressure was also hypotensive and heart rate tachycardic, and he received a 1.5 L crystalloid fluid bolus. Continues on normal saline at 130 mL/h. Influenza A screening was positive. Chest x-ray on arrival showing patchy right lung opacities suspicious for multifocal pneumonia. Patient was started on broad-spectrum antibiotics in the form of Vanco and Levaquin in the ED. Blood cultures were drawn. Also started on Tamiflu. CBC: WBC count 1.1, hemoglobin 14.3, platelets 42,000. CMP: Sodium 141, potassium 3.3, chloride 103, serum bicarb 12, BUN 31, creatinine 2.04, glucose 88. D-dimer elevated 1.71. Unable to undergo CT angio protocol, patient was started on IV heparin protocol in the ED. NT proBNP elevated 11,700, troponin 0.022. Lactic significantly elevated at 11.8, and remains elevated after fluid at 10.2. I am currently evaluating this patient in the emergency department trauma bay 2. He is admitted to intensive care unit as an overflow patient. Family is at bedside. Patient is tachypneic, breathing around 50 breaths/min, he is in a state of severe respiratory distress, he is anxious, pulling at BiPAP. SpO2 is reading 76%. Patient's and primary decision-maker states that the patient would not want to be intubated and placed on the mechanical ventilator under any circumstance. He is a DO NOT RESUSCITATE patient. Review of Systems ROS unobtainable: due to mental status Past Medical History Past Medical History: Chest Pain / Angina, Diabetes Mellitus, Eye Disorder, GERD/Reflux, Hyperlipidemia, Hypertension, Memory Impairment, Musculoskeletal Disorder, Neurologic Disorder, Osteoarthritis (OA), Pneumonia, Renal Disease, Seizure Disorder, Sleep Apnea/CPAP/BIPAP Additional Past Medical History / Comment(s): MS, several brain lesions, possible progressive brain injury, seizures daily-last seizure 02/11/24, IDDM type II, neuropathy L side body, gastroparesis, chronic cervical and lumbar back pain, spinal stimulator in place, L nephrolithiasis, anemia, insomnis, cpap, occasional bilateral leg edema-uses lasix prn, gastroparesis. History of Any Multi-Drug Resistant Organisms: None Reported Past Surgical History: Back Surgery, Heart Catheterization, Orthopedic Surgery, Tonsillectomy Additional Past Surgical History / Comment(s): VNS unit L chest, spinal stimulator, lumbar fusion/cage, Cspine fusion, L knee arthroscopy, bilateral cataract removals/lens implants Past Anesthesia/Blood Transfusion Reactions: No Reported Reaction Past Psychological History: Anxiety, Depression Smoking Status: Vaper Past Alcohol Use History: Occasional Past Drug Use History: Marijuana - Past Family History Mother Family Medical History: COPD, Hypertension Father Family Medical History: Coronary Artery Disease (CAD), Myocardial Infarction (PA) Additional Family Medical History / Comment(s): cabg. Father had a Mi at the age of 55 yrs. Heart disease runs strong on father's side of family. Medications and Allergies Home Medications Medication Instructions Recorded Confirmed Type Divalproex ER [Depakote ER] 500 mg PO TID 11/04/20 02/11/24 History Metoclopramide [Reglan] 5 mg PO TID 01/11/22 02/11/24 History OLANZapine [ZyPREXA] 2.5 mg PO W/LUNCH 01/11/22 02/11/24 History OLANZapine [ZyPREXA] 5 mg PO BID 01/11/22 02/11/24 History Omeprazole 40 mg PO DAILY 01/11/22 02/11/24 History Sertraline [Zoloft] 100 mg PO DAILY 01/11/22 02/11/24 History Lisinopril-Hctz 10-12.5 mg 2 tab PO DAILY 02/11/24 02/11/24 History [Zestoretic 10-12.5] Ofatumumab [Kesimpta Pen] 20 mg SQ QMONTHLY 02/11/24 02/11/24 History Testosterone [Androgel 1.62%] 1 pump TRANSDERM Q48H 02/11/24 02/11/24 History Budesonide [Pulmicort] 0.5 mg INHALATION RT-BID 30 Days 02/15/24 Rx #60 ml Ciprofloxacin HCl [Cipro] 500 mg PO BID 14 Days #28 tab 02/15/24 Rx Ipratropium-Albuterol Nebulize 3 ml INHALATION RT-QID 30 Days 02/15/24 Rx [Duoneb 0.5 mg-3 mg/3 ml Soln] #120 each Lacosamide [Vimpat] 50 mg PO BID 30 Days #60 tab 02/15/24 Rx Levofloxacin [Levaquin] 750 mg PO DAILY 5 Days #5 tab 02/15/24 Rx Allergies Allergy/AdvReac Type Severity Reaction Status Date / Time Penicillins Allergy Severe Swelling Verified 05/11/24 20:27 prochlorperazine AdvReac Severe Hallucinati Verified 05/11/24 20:27 [From Compazine] ons prochlorperazine edisylate AdvReac Severe Hallucinati Verified 05/11/24 20:27 [From Compazine] ons prochlorperazine maleate AdvReac Severe Hallucinati Verified 05/11/24 20:27 [From Compazine] ons bupropion HCl AdvReac Intermediate Nausea & Verified 05/11/24 20:27 [From Wellbutrin] Vomiting gabapentin [From Neurontin] AdvReac Intermediate Nausea & Verified 05/11/24 20:27 Vomiting amantadine AdvReac Unknown Nausea & Verified 05/11/24 20:27 Vomiting Pork/Porcine Containing AdvReac Unknown Verified 05/11/24 20:27 Products [Pork] Physical Exam Vitals: Vital Signs Temp Pulse Resp BP Pulse Ox FiO2 05/12/24 03:46 120 H 43 H 97/79 76 L 05/12/24 03:28 100 05/12/24 01:46 112 H 46 H 97/61 87 L 05/12/24 00:22 116 H 49 H 115/89 91 L 05/11/24 23:54 124 H 05/11/24 23:29 125 H 100 05/11/24 22:36 131 H 47 H 107/46 78 L 05/11/24 22:04 130 H 45 H 114/88 88 L 05/11/24 21:07 122 H 05/11/24 20:53 120 H 100 05/11/24 20:33 28 H 05/11/24 20:25 97.4 F L 133 H 44 H 96/56 77 L Intake and Output 05/11/24 05/11/24 05/12/24 14:59 22:59 06:59 Other: Weight 90.718 kg GENERAL EXAM: 58-year-old male, on noninvasive BiPAP, in a state of respiratory distress, air hunger, pulling at BiPAP HEAD: Normocephalic and atraumatic EYES: Normal reaction of pupils, equal size. NOSE: Clear with pink turbinates. THROAT: No erythema or exudates. NECK: No masses, no JVD. CHEST: No chest wall deformity. LUNGS: Equal air entry with diffuse coarse rhonchi bilaterally. CVS: S1 and S2 normal with no audible murmur, regular rhythm. No extra heart sounds. Tachycardic. ABDOMEN: No hepatosplenomegaly, active bowel sounds, no guarding or rigidity. SPINE: No scoliosis or deformity SKIN: No rashes CENTRAL NERVOUS SYSTEM: No focal deficits, tone is normal in all 4 extremities. EXTREMITIES: There is no peripheral edema, clubbing, or cyanosis. Peripheral pulses are intact. Results - Laboratory Findings CBC and BMP: 05/11/24 20:45 05/11/24 20:45 PT/INR, D-dimer PT 13.8 sec (10.0-12.5) H 05/11/24 20:45 INR 1.3 (<1.2) H 05/11/24 20:45 D-Dimer 1.71 mg/L FEU (<0.60) H 05/11/24 20:45 Abnormal lab findings: Abnormal Labs 05/11/24 05/11/24 05/11/24 20:45 20:45 20:45 WBC 1.1 L* MCV 102.5 H MCHC 30.6 L Plt Count 42 L Neutrophils # (Manual) 0.70 L Lymphocytes # (Manual) 0.09 L Metamyelocytes # (Man) 0.09 H PT 13.8 H INR 1.3 H APTT 33.0 H D-Dimer 1.71 H Potassium 3.3 L Carbon Dioxide 12 L BUN 31 H Creatinine 2.04 H Plasma Lactic Acid Ermias AST 68 H Total Protein 6.1 L Albumin 3.4 L Influenza Type A (PCR) 05/11/24 05/11/24 05/12/24 20:45 20:45 01:10 WBC MCV MCHC Plt Count Neutrophils # (Manual) Lymphocytes # (Manual) Metamyelocytes # (Man) PT INR APTT D-Dimer Potassium Carbon Dioxide BUN Creatinine Plasma Lactic Acid Ermias 11.8 H* 10.2 H* AST Total Protein Albumin Influenza Type A (PCR) Detected A - Diagnostic Findings Chest x-ray: image reviewed Assessment and Plan Assessment: Acute hypoxemic respiratory failure, secondary to acute influenza A infection, probable superimposed bacterial pneumonia Pneumonia, sepsis Severe anion gap metabolic acidosis, secondary to above and lactic acidosis Bicytopenia, with leukopenia and thrombocytopenia Severe lactic acidosis Coagulopathy Acute COPD exacerbation Acute kidney injury, secondary to hypotension and ATN History of advanced MS History of seizure disorders, last reported seizure yesterday prior to coming in History of hypertension Plan: On my initial evaluation, patient in respiratory distress on noninvasive BiPAP. Unfortunately, we are limited in supporting this patient non-invasively. Patient's family at bedside, including patient's and designated decision-ma dominique. She states that the patient is by no means to be intubated and placed on mechanical ventilator. Patient has previously voiced his opposition to resuscitation and/or invasive mechanical ventilation. We did trial this patient on BiPAP support, in which he was receiving maximum support. On my r eevaluation, there is no improvement in his respiratory distress/failure. Patient's is electing to make him comfort care. Additional family are present at bedside, and agree to this decision. Case was discussed with Dr. Claros and Dr. Blake, who are in agreement with this plan. I will adhere to the patient's and patients' family request. Comfort care order set in place. Admit to General Medical floor instead of ICU. Time with Patient: Greater than 30
[2024-05-12] MEDS ORDERED: OSELTAMIVIR 75 MG CAP PO SCH (09:00)
[2024-05-12] MEDS ORDERED: PANTOPRAZOLE 40 MG/10 ML VIAL IV SCH (09:00)
[2024-05-12] MEDS ORDERED: VANCOMYCIN 1,750 MG in SODIUM CHLORIDE 0.9% 500 ML 500 ML IVPB SCH (23:00)
== END 2024-05-12 10:24 | disposition expired | DRG 871 ==
LOC: EC 20:23 → 2SICU 23:18 → 4SSUR 05-12 04:51 → 1SOBS 05-12 07:04
PROVIDERS: ADMIT Family Medicine; ATTEND Family Medicine
PROC: 5A09357 Assistance with Respiratory Ventilation, Less than 24 Consecutive Hours, Continuous Positive Airway Pressure (ICD-10-PCS; principal; 2024-05-11)
DX: A41.9 Sepsis, unspecified organism (principal); J10.08 Influenza due to other identified influenza virus with other specified pneumonia; J96.01 Acute respiratory failure with hypoxia; N17.0 Acute kidney failure with tubular necrosis; J15.9 Unspecified bacterial pneumonia; E87.20 Acidosis, unspecified; D68.9 Coagulation defect, unspecified; D69.6 Thrombocytopenia, unspecified; D72.819 Decreased white blood cell count, unspecified; J44.0 Chronic obstructive pulmonary disease with (acute) lower respiratory infection; I11.0 Hypertensive heart disease with heart failure; E11.40 Type 2 diabetes mellitus with diabetic neuropathy, unspecified; G35 Multiple sclerosis; G40.909 Epilepsy, unspecified, not intractable, without status epilepticus; F32.A Depression, unspecified; J44.1 Chronic obstructive pulmonary disease with (acute) exacerbation; I50.9 Heart failure, unspecified; E11.43 Type 2 diabetes mellitus with diabetic autonomic (poly)neuropathy; Z66 Do not resuscitate; Z51.5 Encounter for palliative care; K21.9 Gastro-esophageal reflux disease without esophagitis; I95.9 Hypotension, unspecified; M19.90 Unspecified osteoarthritis, unspecified site; G89.29 Other chronic pain; G47.30 Sleep apnea, unspecified; F17.290 Nicotine dependence, other tobacco product, uncomplicated; F41.9 Anxiety disorder, unspecified; E86.0 Dehydration; E78.5 Hyperlipidemia, unspecified; K31.84 Gastroparesis; Z20.822 Contact with and (suspected) exposure to COVID-19; Z79.899 Other long term (current) drug therapy; Z96.82 Presence of neurostimulator; Z98.1 Arthrodesis status; Z71.89 Other specified counseling; Z79.890 Hormone replacement therapy; Z79.51 Long term (current) use of inhaled steroids; Z88.0 Allergy status to penicillin; Z88.8 Allergy status to other drugs, medicaments and biological substances
CPT/HCPCS: 36415; 71045; 80053; 83605; 83735; 83880; 84484; 85025; 85379; 85610; 85730; 87636; 93005; 94640; 94660; 96365; 96366; 96367; 96368; 96375; 96376; 99291